=== PATIENT | male | born 1965 | race Caucasian/White ===

== ENCOUNTER 2018-05-02 16:14 | Emergency (ER) | payer OTHER, MEDICAID, SELFPAY ==
[2018-05-02 16:15] VITALS: BP 167/94; PULSE 69; RESP 24; TEMP 36.3; O2SAT 97; BMI 57.1
--- NOTE | 2018-05-02 16:20 | ED.RN ---
spoke with Dorina Serra no testing required. follow up with [facility]
--- NOTE | 2018-05-02 16:24 | RAD_ITS ---
STUDY: X-RAY - RIGHT SHOULDER REASON FOR EXAM: Male, 52 years old. Fall, pain. TECHNIQUE: 4 view(s) of the shoulder. COMPARISON: None. FINDINGS: Normal glenohumeral articulation. There is degenerative arthrosis of the acromioclavicular joint without inferior osseous spur formation. There is a 2 mm periarticular ossific density along the superior joint margin. There is a flat undersurface of the acromion consistent with a Type I morphology. A nearly 2 cm mildly irregular, but benign-appearing sclerotic density is seen in the proximal humeral diaphysis. The soft tissue structures are unremarkable. There is no demonstrated fracture. Normal visualized pulmonary apex. RAD/Shoulder min 2 Views IMPRESSION: 1. No acute fracture of the right shoulder. 2. 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 3. 2 cm irregular sclerotic density in the proximal humeral diaphysis, likely benign. If there is clinical suspicion of other pathology, one might consider bone scan to exclude the presence of other skeletal lesions. Electronically Signed: Nikita Coley MD at 16:48 EDT , Service support ,
--- NOTE | 2018-05-02 16:28 | ED.DCSUM_ITS ---
- ER Visit Summary Date of Service: 05/02/18 Chief Complaint: Right shoulder pain History of Present Illness: The patient is a 52 M that rolled his ankle and fell today. He landed on his right shoulder. He only complains of right shoulder pain. Pain worse with movement. No weakness or numbness. No other injuries. No loss of consciousness. Physical Examination: Proximal humerus tender to palpation. Neurovascular intact distally. No deformities. Skin intact. Clavicle nontender. Neck nontender. Head atraumatic. No other pertinent findings. Test Results: Shoulder x-rays pending Emergency Department Course and Treatment: Patient declined pain medicine. He already took ibuprofen. X-ray showed no fracture or acute abnormality. He does have a 2 cm sclerotic lesion in his humeral head. He can follow up with primary care as needed for this. He will follow-up with corporate care for his injury. He may return to work today. No lifting with the right arm until cleared by [facility] care. Treatment Plan: As above Disposition: Discharged Impression: 1. Right shoulder contusion 2. Right humerus sclerotic lesion This note was generated with [employer] dictation software. It may contain incorrect words, spelling, and punctuation that were not noted in review of the chart prior to signing ED Disposition - Plan for ED Patient: Chief Complaint: Fall Referrals: Eduard Wells MD [Primary Care Provider] -
--- NOTE | 2018-05-02 16:58 | DCINST.ED_ITS ---
ED Disposition - Plan for ED Patient: Chief Complaint: Fall Instructions: ED Mechanical Fall Referrals: Eduard Wells MD [Primary Care Provider] - [facility] [GROUP OF PHYSICIANS] -
== END 2018-05-02 17:13 | disposition home or self-care (01) ==
PROVIDERS: Emergency Provider Emergency Medicine; Family Provider Family Medicine; PCP Family Medicine
DX: S40.011A Contusion of right shoulder, initial encounter (principal); W18.39XA Other fall on same level, initial encounter; Y93.9 Activity, unspecified; Y92.9 Unspecified place or not applicable; Y99.0 Civilian activity done for income or pay; M25.811 Other specified joint disorders, right shoulder; I10 Essential (primary) hypertension; K21.9 Gastro-esophageal reflux disease without esophagitis; Z79.82 Long term (current) use of aspirin; Z79.899 Other long term (current) drug therapy
CPT/HCPCS: 73030; 99282

== ENCOUNTER 2019-01-29 22:06 | Emergency (ER) | payer SELFPAY ==
[2019-01-29 22:07] VITALS: BP 190/102; RESP 16; TEMP 36.7; BMI 50.5
[2019-01-29 22:53] VITALS: BP 170/67; PULSE 89; RESP 16; O2SAT 96
--- NOTE | 2019-01-29 23:14 | ED.VISSUMM ---
- ER Visit Summary Date of Service: 01/29/19 Chief Complaint: Hypertension History of Present Illness: The patient is a 53 M history of hypertension, anxiety, and depression. Patient has been out of his blood pressure medication for the past 1 month. If the pharmacy was going to call his doctor for a refill the patient arrives today has not taken it in the last month. He has had cold-like symptoms over the past few days. He does report congestion and cough. Last evening he had right ear pain. He took Coricidin HBP today for his cold symptoms. He got new batteries for his blood pressure cuff at home and noted his blood pressure to be high. He states when his blood pressure is under good control systolic blood pressure is in the 140s. It is recently been running in the 150s-170s. Physical Examination: Blood pressure is 170/67, temperature 98.1, heart rate 89, respiratory rate 16, pulse ox 96% on room air. When I enter the room patient systolic blood pressure is 188. Patient is sitting upright in the bed. He is in no acute distress and nontoxic appearing. Head neck examination reveals right TM to be erythematous. Left TM is clear. Heart is regular rate and rhythm. Lung sounds are clear. Abdomen is soft and nontender. Neuro exam is grossly unremarkable. Test Results: [] Emergency Department Course and Treatment: Patient be treated with a course of Augmentin to cover his ear infection. This will also cover respiratory illness so chest x-ray will be deferred at this time. Patient is given a dose of his Tenoretic. He will be given prescription for 10-day course. He will follow-up with his primary care physician to get his medication refilled. Treatment Plan: [] Disposition: Discharge Impression: 1. Right otitis media 2. Hypertension secondary to medication noncompliance This note was generated with Fl[employer]ation software. It may contain incorrect words, spelling, and punctuation that were not noted in review of the chart prior to signing ED Disposition - Plan for ED Patient: Referrals: Eduard Wells MD [Primary Care Provider] -
--- NOTE | 2019-01-29 23:17 | ED.DCSUM_ITS ---
- ER Visit Summary Date of Service: 01/29/19 Chief Complaint: Hypertension History of Present Illness: The patient is a 53 M history of hypertension, anxiety, and depression. Patient has been out of his blood pressure medication for the past 1 month. If the pharmacy was going to call his doctor for a refill the patient arrives today has not taken it in the last month. He has had cold- like symptoms over the past few days. He does report congestion and cough. Last evening he had right ear pain. He took Coricidin HBP today for his cold symptoms. He got new batteries for his blood pressure cuff at home and noted his blood pressure to be high. He states when his blood pressure is under good control systolic blood pressure is in the 140s. It is recently been running in the 150s-170s. Physical Examination: Blood pressure is 170/67, temperature 98.1, heart rate 89, respiratory rate 16, pulse ox 96% on room air. When I enter the room patient systolic blood pressure is 188. Patient is sitting upright in the bed. He is in no acute distress and nontoxic appearing. Head neck examination reveals right TM to be erythematous. Left TM is clear. Heart is regular rate and rhythm. Lung sounds are clear. Abdomen is soft and nontender. Neuro exam is grossly unremarkable. Test Results: [] Emergency Department Course and Treatment: Patient be treated with a course of Augmentin to cover his ear infection. This will also cover respiratory illness so chest x-ray will be deferred at this time. Patient is given a dose of his Tenoretic. He will be given prescription for 10-day course. He will follow-up with his primary care physician to get his medication refilled. Treatment Plan: [] Disposition: Discharge Impression: 1. Right otitis media 2. Hypertension secondary to medication noncompliance This note was generated with [employer] software. It may contain incorrect words, spelling, and punctuation that were not noted in review of the chart prior to signing ED Disposition - Plan for ED Patient: Referrals: Eduard Wells MD [Primary Care Provider] -
--- NOTE | 2019-01-29 23:17 | ED.DEP ---
ED Disposition - Plan for ED Patient: Disposition: Home or Assisted Living Instructions: ED HTN Established Prescriptions: Amox/Clavulanate Tablet [Augmentin Tablet] 875 mg PO Q12H #20 tablet Atenolol/Chlorthalidone [Tenoretic 100 Tablet] 1 tab PO DAILY #10 tablet Referrals: Eduard Wells MD [Primary Care Provider] - As soon as possible
[2019-01-29] MEDS: Chlorthalidone 50 MG Tablet 25 MG PO (23:28)
[2019-01-29] MEDS: Amox/Clavulanate 875 MG Tablet PO (23:28)
[2019-01-29] MEDS: Atenolol 100 MG Tablet PO (23:29)
[2019-01-29 23:37] VITALS: BP 188/84; PULSE 84; RESP 15; O2SAT 95
== END 2019-01-29 23:38 | disposition home or self-care (01) ==
PROVIDERS: Emergency Provider Emergency Medicine; Family Provider Family Medicine; PCP Family Medicine
DX: I10 Essential (primary) hypertension (principal); Z91.14 Patient's other noncompliance with medication regimen; H66.91 Otitis media, unspecified, right ear; F32.9 Major depressive disorder, single episode, unspecified; F41.9 Anxiety disorder, unspecified; Z79.82 Long term (current) use of aspirin; Z79.899 Other long term (current) drug therapy
CPT/HCPCS: 99283

== ENCOUNTER 2019-09-26 21:15 | Observation (INO) | payer SELFPAY ==
[2019-09-26 21:16] VITALS: BP 183/128; PULSE 103; RESP 18; TEMP 36.9; O2SAT 98; BMI 48.0
[2019-09-26 21:45] VITALS: BP 173/78; PULSE 99; RESP 20; O2SAT 95
--- NOTE | 2019-09-26 21:46 | EKG12_ITS ---
Test Reason : CP Blood Pressure : / mmHG Vent. Rate : 102 BPM Atrial Rate : 102 BPM P-R Int : 172 ms QRS Dur : 090 ms QT Int : 386 ms P-R-T Axes : 045 -08 049 degrees QTc Int : 503 ms Sinus tachycardia Possible Left atrial enlargement Borderline ECG Confirmed by MARTIN HUBER, BLANQUITA ([id number]), editor trade journal DAGO CRAMER ([id number]) on 09/29/2019 12:22:54 PM Referred By: Confirmed By:ASMITA SALAZAR MD
--- NOTE | 2019-09-26 21:49 | RAD_ITS ---
STUDY: X-RAY CHEST REASON FOR EXAM: Male, 54 years old. Shortness of breath, chest tightness, high blood pressure. TECHNIQUE: Single AP portable view of the chest. COMPARISON: 09/18/2017. 06/09/2016. FINDINGS: There are superimposed monitor leads. The lungs are clear and expanded. There is no demonstrated pleural abnormality. There is mild cardiac enlargement. Normal mediastinum and maggie. Normal visualized pulmonary arteries. Normal visualized aortic arch and descending thoracic aorta. Normal visualized thoracic spine. Normal visualized ribs, clavicles, and shoulders. There is no demonstrated abnormality of the visualized soft tissue structures of the upper abdomen. RAD/Chest 1 View (Portable) IMPRESSION: Cardiomegaly, new since previous exam. No pulmonary edema, congestive heart failure or confluent pneumonia. Electronically Signed: Matilda Bob MD at 23:03 EST , Service support ,
[2019-09-26 21:54] VITALS: O2SAT 100
[2019-09-26 22:09] LABS: Absolute Lymphocyte Count 1.27 X10^3/uL (0.83-4.51); Absolute Neutrophil Count 2.1 X10^3/uL (2.0-7.7); Basophil# 0.05 X10^3/uL; Basophil% 1.2 % (0-1); Eosinophil# 0.18 X10^3/uL; Eosinophils% 4.3 % (0-5); Hematocrit 42.6 % (40-54); Hemoglobin 14.7 g/dL (13.0-16.5); Lymphocyte # 1.27 X10^3/ul (4.0); Lymphocyte % 30.5 % (19-41); Mean Corp Hgb Conc 34.5 g/dL (32-36); Mean Corpuscular Hgb 29.9 pg (27.0-32.0); Mean Corpuscular Volume 86.6 fL (80-94); Mean Platelet Vol. 9.4 fl (6.2-12.0); Monocyte# 0.52 X10^3/uL; Monocyte% 12.5 % (0-10); NRBC Flagged by Analyzer 0 % (0-5); Neutrophil # 2.13 X10^3/uL (2.7-7.7); Neutrophil % 51.3 % (47-70); Platelet Count 203 K/mm3 (150-450); RBC Distribution Width CV 12.4 % (11.6-14.6); RBC Distribution Width SD 39.3 fl (35.1-43.9); Red Blood Count 4.92 M/mm3 (4.6-6.2); White Blood Count 4.2 K/mm3 (4.4-11.0)
[2019-09-26 22:20] VITALS: PULSE 100; RESP 18
[2019-09-26 22:20] LABS: International Normalized Ratio 0.9; Prothrombin Time (Protime)PT. 12.2 SECONDS (11.7-14.9)
[2019-09-26 22:26] VITALS: BP 137/86; PULSE 90; RESP 18; O2SAT 95
[2019-09-26] MEDS: Ipratropium/Albuterol Sulfate 3 ML AMPUL.NEB INHALATION (22:27)
[2019-09-26 22:33] LABS: Anion Gap 5 (5-15); BUN 13 mg/dL (7-18); BUN/Creat Ratio 11.4 RATIO (10-20); Calcium,Total 9.1 mg/dL (8.5-10.1); Chloride 104 mmol/L (98-107); Creatinine, Serum 1.14 mg/dL (0.70-1.30); EST Glomerular Filtration Rate 71 mL/min (>60); Est Glom Filt Rate - Afr Amer 86 mL/min (>60); Estimated Creatinine Clearance 71.67 ml/min; Glucose 130 mg/dL (74-106); Potassium 3.1 mmol/L (3.5-5.1); Sodium Level 140 mmol/L (136-145)
[2019-09-26 23:43] VITALS: BP 144/83; PULSE 98; RESP 18; O2SAT 93; O2SAT 94
[2019-09-27] VITALS (12 sets, daily range): BP systolic 156–188; BP diastolic 80–98; PULSE 64–99; RESP 16–20; TEMP 36.6–36.8; O2SAT 94–97; BMI 53.4
--- NOTE | 2019-09-27 00:51 | ED.DCSUM_ITS ---
- ER Visit Summary Date of Service: 09/27/19 Chief Complaint: Shortness of breath History of Present Illness: The patient is a 54 M presenting with shortness of breath. Patient states that started approximately 1 week ago. He states it has been progressively worsening. It is worsened with the exerts himself. He has had a dry cough. He denies fever. Denies chest pain. Denies abdominal pain, nausea, vomiting, diarrhea. He does have multiple sick contacts at home. He did not receive a flu shot today. Today he had palpitations so he checked his pulse and it was over 100. He then checked his blood pressure went which was 190/102. This prompted him to come to the emergency department. Physical Examination: Vitals are stable. Patient is afebrile. Alert no acute distress. HEENT exam is unremarkable. Neck is supple. Lungs are diminished bilaterally. Heart is regular rate and rhythm. Abdomen is soft nontender nondistended. Extremities symmetric edema Skin is warm and dry. No focal neurologic deficit. Remainder of exam is unremarkable. Emergency Department Course and Treatment: EKG is sinus rate of 102 with no acute ischemic changes. Chest x-ray shows cardiomegaly, new since previous exam. No pulmonary edema, congestive heart failure or confluent pneumonia. CBC normal except white count 4.2. Chemistries normal except potassium 3.1. Troponin is negative. Patient was given a DuoNeb on arrival. He continues to f eel short of breath. With ambulation his pulse ox is 88 to 89% on room air. Discussed with the hospitalist for observation. Disposition: Observation Impression: Exertional dyspnea This note was generated with [employer] dictation software. It may contain incorrect words, spelling, and punctuation that were not noted in review of the chart prior to signing ED Disposition - Plan for ED Patient: Referrals: Eduard Wells MD [Primary Care Provider] -
--- NOTE | 2019-09-27 00:53 | PCM.HP.STD ---
Problem List (1) Exertional dyspnea Status: Acute (2) Hypokalemia Status: Acute (3) HTN (hypertension) Status: Chronic Qualifiers: Hypertension type: essential hypertension Qualified Code(s): I10 - Essential (primary) hypertension (4) Anxiety and depression Status: Chronic (5) Morbid obesity Status: Chronic History of Present Illness Date of Admission: 09/27/19 Chief Complaint: Exertional dyspnea The patient is a 54 y/o M w/ PMHx: Morbid Obesity, HTN, Anxiety and Depression who presents to the [facility] ED on 09/27/19 with history of ongoing dyspnea starting approximately 1 week prior progressively worsening, worse with any exertion with ongoing dry cough with multiple recent ill contacts and reported flu shot upon day prior to current presentation with mildly racing heart and elevated blood pressures above his normal baseline. He does note that he has had recent congestion and mild rhinorrhea and been breathing through his mouth more. He denies any recent fevers or chills associated. Patient oxygenation decreases to 88% on RA with exertion in the ED. Work-up in the ED included T 98.4, heart rate 103, BP 183/128, respiratory rate 18, 98% on room air with repeat blood pressure upon requested evaluation for admission 177/98, CBC with W BC 4.2, hemoglobin 14.7, platelet 203 with no evidence of left shift, unremarkable coags, BMP with potassium 3.1, glucose 130, troponin less than 0.015, chest x-ray with cardiomegaly new from prior with last noted film that would include portions of the chest 05/02/2018, EKG with sinus rhythm with no acute evidence of ischemia. In the ED patient ministered DuoNeb therapy and he notes this had minimal improvement effect. Past Medical History Past Medical History (Chronic Problems): Chronic Problems (Last Updated 05/09/18 @ 16:56 by Veronica Landa) HTN (hypertension) (Chronic) Anxiety and depression (Chronic) Morbid obesity (Chronic) Medical History: Medical History (Last Updated 05/09/18 @ 16:56 by Veronica Landa) Shoulder pain M25.519 HTN (hypertension) I10 Allergies No Known Allergies Allergy (Verified 09/26/19 21:15) Home Medications: Ambulatory Orders Medication Instructions Recorded Aspirin 325 mg PO DAILY@0800 11/19/13 Atenolol/Chlorthalidone [Tenoretic 1 tab PO DAILY 11/19/13 100 Tablet] Ibuprofen [Motrin] 800 mg PO BID 11/19/13 Potassium Chloride [Klor-Con M10] 10 meq PO DAILY 01/13/15 guanfacine 1 mg tablet 1 tab PO QHS 30 Days #30 05/09/18 Clonazepam [Klonopin] 0.5 mg PO QHS 01/29/19 Escitalopram Oxalate [Lexapro] 20 mg PO DAILY 01/29/19 Minoxidil 20 mg PO DAILY 09/26/19 Surgical History: - - Patient notes only ingrown toenail removal surgery. Psychiatric History: Anxiety, Depression Lives: Spouse/ Significant Other Smoking Status: Never smoker Tobacco Use: Non-smoker Alcohol: Occasional Drugs: None - *Family History Maternal History Items: - - Patient notes a maternal family history of asthma and diabetes mellitus type 2. Paternal History Items: - - Patient notes a paternal family history of diabetes as well as lung cancer with concurrent tobacco use history. Review of Systems Constitutional: Reports: Malaise, Weakness, Fatigue. Denies: Chills, Fever, Weight Change HEENT: Reports: Nasal Congestion, Sinus Congestion, Sinus Drainage. Denies: Head Aches Cardiovascular: Denies: Chest Pain, Chest Pressure, Chest Tightness, Light Headedness, Orthopnea, Palpitations, Syncope Respiratory: Reports: Cough, Shortness of Breath, Shortness of breath upon exertion. Denies: Shortness of breath at rest, Sputum production Gastrointestinal: Denies: Abdominal Pain, Nausea, Vomiting Genitourinary: Denies: Dysuria Musculoskeletal: Reports: Joint Pain. Denies: Joint Tenderness Skin: Denies: Rash, Wounds Neurological: Denies: Numbness, Tingling, Focal weakness Psychiatric: Reports: Anxiety, Depression. Denies: Homicidal Ideations, Suicidal Ideations Hematologic/ Lymphatic: Denies: Easy Bruising, Easy Bleeding VTE Information - Inpt Only VTE Present on Admission: No VTE Mechan Device Prophylaxis: SCD's VTE Pharm Prophylaxis ordered?: Yes Patient Problems: Active and Suspected Problems (Last Updated 05/09/18 @ 16:56 by Veronica Landa) Exertional dyspnea (Acute) Hypokalemia (Acute) Subjective: Seated upright in ED bed, seated at bedside, notes minimal improvement with DuoNeb therapy. Objective: Physical Examination: General: awake, alert, oriented x 3 and cooperative, seated upright at the ED bedside, no acute distress but sitting straight up. Skin: normal color, turgor, no icterus, cyanosis. HEENT: AT/NC, EOMI, PERRLA, mildly dry MM, no carotid bruits, unable to discern JVD given thickened neck. Lungs: Diffusely diminished breath sounds, greater bases, moderate effort, no rales, rhonchi or wheezing. Heart: Currently regular rate and rhythm; no gallop, rub audible. Abdomen: soft, morbidly obese, NTTP, ND, normal BS, unable to discern HSM secondary to morbidly obese habitus. Extremities: no cyanosis, clubbing, bilateral pedal and ankle edema, not pitting. Neurological: patient awake, alert, oriented x 3; cognitive function intact; pupils equally reactive to light and accomodation; cranial nerves II-XII grossly normal, moving all 4 extremities, no focal deficits, strength moderate global decrease given acute complaints. Psychiatric: affect appears fatigued, no acute evidence of depressive or anxiety feelings. - Physical Exam Vitals/I&O's: Vital Signs Temp Pulse Resp BP Pulse Ox 98.4 F 99 19 H 177/98 H 95 09/26/19 21:16 09/27/19 00:00 09/27/19 00:00 09/27/19 00:00 09/27/19 00:00 Oxygen Delivery Method Room Air Weight: 316 lb Body Mass Index (BMI) 48.0 Laboratory Results 09/26/19 22:00: WBC 4.2 L, RBC 4.92, Hgb 14.7, Hct 42.6, MCV 86.6, MCH 29.9, MCHC 34.5, RDW Std Deviation 39.3, RDW Coeff of Bre 12.4, Plt Count 203, MPV 9.4, Immature Gran % (Auto) 0.200, Neut % (Auto) 51.3, Lymph % (Auto) 30.5, Ida % (Auto) 12.5 H, Eos % (Auto) 4.3, Baso % (Auto) 1.2 H, Absolute Neuts (auto) 2.1, Absolute Lymphs (auto) 1.27, Nucleated RBC % 0 09/26/19 22:00: PT 12.2, INR 0.9 09/26/19 22:00: Sodium 140, Potassium 3.1 L, Chloride 104, Carbon Dioxide 31.0, Anion Gap 5, BUN 13, Creatinine 1.14, Estim Creat Clear Calc 71.67, Est GFR (MDRD) Af Amer 86, Est GFR (MDRD) Non-Af 71, BUN/Creatinine Ratio 11.4, Glucose 130 H, Calcium 9.1, Troponin I < 0.015 Assessment/Plan All Active Problems (Last Updated 05/09/18 @ 16:56 by Veronica Landa) Exertional dyspnea (Acute) Hypokalemia (Acute) Disorder of bone, unspecified (Acute) Contusion of right shoulder, initial encounter (Acute) The patient is a 54 y/o M w/ PMHx: Morbid Obesity, HTN, Anxiety and Depression who presents to the [facility] ED on 09/27/19 with history of ongoing dyspnea starting approximately 1 week prior progressively worsening, worse with any exertion with ongoing dry cough with multiple recent ill contacts and reported flu shot upon day prior to current presentation with mildly racing heart and elevated blood pressures above his normal baseline. 1. Exertional dyspnea, unclear specific etiology: Work-up in the ED included T 98.4, heart rate 103, BP 183/128, respiratory rate 18, 98% on room air with repeat blood pressure upon requested evaluation for admission 177/98, CBC with W BC 4.2, hemoglobin 14.7, platelet 203 with no evidence of left shift, unremarkable coags, BMP with potassium 3.1, glucose 130, troponin less than 0.015, chest x-ray with cardiomegaly new from prior with last noted film that would include portions of the chest 05/02/2018, EKG with sinus rhythm with no acute evidence of ischemia. Will admit to PCU, will obtain BMP, will obtain echocardiogram, place on a monitored bed to assure no acute myocardial infarction with serial cardiac enzymes and EKGs. If EKGs and cardiac enzymes remain unremarkable would pursue a.m. cardiac stress testing given may be anginal equivalent. Will administer Lasix 40 mg IV x1 and continue to assess for any improvement. ASA, NG, morphine. Mag, TSH pending. We will hold minoxidil as black box warning for cardiac side effects including pericardial effusion. 2. Hypokalemia: Admission K+ 3.1, supplementation given, repeat level in AM. 3. Hypertension, Uncontrolled: Continue home regimen including atenolol, chlorthalidone, given elevated BP above goal will add lisinopril, PRN hydralazine. 4. Anxiety and depression: We will continue home Klonopin and Lexapro regimen. 5. Morbid Obesity: Weight loss and lifestyle changes encouraged, nutrition consulted. 6. DVT prophylaxis: SCDs, Lovenox. Code Visit OBSV E&M: [id number] Initial observation care L3
--- NOTE | 2019-09-27 01:40 | ECHOCS_ITS ---
Reason For Study: DYSPNEA Procedure This was a 2D Doppler, Color Flow transthoracic echocardiogram. The exam was of poor technical quality due to body habitus. Exam performed in department. Left Ventricle Moderate concentric left ventricular hypertrophy. The estimated ejection fraction is 65 %. Stage 1 diastolic dysfunction. No regional wall motion abnormalities noted. Right Ventricle Normal size and thickness. Normal systolic function. Atria Normal left atrium. Normal right atrium. Normal atrial septum. Mitral Valve The mitral valve is structurally normal. No prolapse or stenosis seen. Tricuspid Valve Normal tricuspid valve. Trivial tricuspid valve insufficiency. Unable to estimate RV systolic pressure due to insufficient tricuspid regurgitant envelope. Aortic Valve Normal aortic valve. Trisinus/trileaflet aortic valve. Pulmonic Valve Normal pulmonic valve. Great Vessels Normal aortic root. Normal arch. Normal inferior vena cava. Inferior vena cava collapse with sniff. Pericardium/Pleural Trivial pericardial effusion. There are no echocardiographic indications of cardiac tamponade. Medication Diluted definity 3.5ml given slow IV push to enhance endocardial definition. MMode/2D Measurements & Calculations LVIDd: 4.7 cm IVSd: 1.6 cm Ao root diam: 3.7 cm LVIDs: 3.0 cm LVPWd: 1.5 cm FS: 35.6 % LA dimension(2D): 5.3 cm Time Measurements MV dec time: 0.22 sec Doppler Measurements & Calculations MV E max maximus: 54.2 cm/sec Lat Peak E' Maximus: 6.1 cm/sec Med Peak E' Maximus: 5.7 cm/sec MV A max maximus: 80.5 cm/sec E/E' lat: 8.9 E/E' med: 9.4 MV E/A: 0.67 Ao V2 max: 158.1 cm/sec LV V1 max: 126.6 cm/sec PA V2 max: 170.3 cm/sec Ao max P.0 mmHg LV V1 max P.4 mmHg Interpretation Summary Moderate concentric left ventricular hypertrophy. The estimated ejection fraction is 65 %. Stage 1 diastolic dysfunction. Trivial tricuspid valve insufficiency. Unable to estimate RV systolic pressure due to insufficient tricuspid regurgitant envelope. Trivial pericardial effusion. There are no echocardiographic indications of cardiac tamponade. There is no comparison study available. The study was technically difficult. Contrast injection was performed. Ordering Physician: Estelle Roldan Referring Physician: PIERCE RODRIGUES Performed By: Glenis Michael, BEKA, RVT
--- NOTE | 2019-09-27 01:40 | EKG12_ITS ---
Test Reason : CP ADMIT Blood Pressure : / mmHG Vent. Rate : 088 BPM Atrial Rate : 088 BPM P-R Int : 180 ms QRS Dur : 094 ms QT Int : 402 ms P-R-T Axes : 039 014 031 degrees QTc Int : 486 ms Normal sinus rhythm Prolonged QT Abnormal ECG When compared with ECG of 26-SEP-2019 21:18, MANUAL COMPARISON REQUIRED, DATA IS UNCONFIRMED Confirmed by BART HUBER, KASANDRA ([id number]), content editor DAGO CRAMER ([id number]) on 10/02/2019 10:05:47 AM Referred By: DR VAZ Confirmed By:KASANDRA ARRIAGA MD
[2019-09-27 02:14] LABS: Magnesium 2.3 mg/dL (1.6-2.6)
[2019-09-27] MEDS: Lisinopril 10 MG Tablet PO (02:23)
[2019-09-27] MEDS: 0.9% Saline Lock 10 ML Syringe IV (02:23)
[2019-09-27] MEDS: Furosemide 40 MG/4 ML Vial IV (02:23)
[2019-09-27] MEDS: Aspirin E.C. 81 MG Tablet PO (04:22)
[2019-09-27 05:02] LABS: Absolute Lymphocyte Count 1.28 X10^3/uL (0.83-4.51); Absolute Neutrophil Count 2.4 X10^3/uL (2.0-7.7); Basophil# 0.05 X10^3/uL; Basophil% 1.1 % (0-1); Eosinophil# 0.11 X10^3/uL; Eosinophils% 2.5 % (0-5); Hemoglobin 15.6 g/dL (13.0-16.5); Lymphocyte # 1.28 X10^3/ul (4.0); Lymphocyte % 28.8 % (19-41); Mean Corp Hgb Conc 33.2 g/dL (32-36); Mean Corpuscular Hgb 28.9 pg (27.0-32.0); Mean Platelet Vol. 9.6 fl (6.2-12.0); Monocyte# 0.57 X10^3/uL; Monocyte% 12.8 % (0-10); NRBC Flagged by Analyzer 0 % (0-5); Neutrophil # 2.43 X10^3/uL (2.7-7.7); Neutrophil % 54.6 % (47-70); Platelet Count 229 K/mm3 (150-450); RBC Distribution Width CV 12.6 % (11.6-14.6); White Blood Count 4.5 K/mm3 (4.4-11.0)
[2019-09-27 05:29] LABS: Anion Gap 9 (5-15); BUN 14 mg/dL (7-18); BUN/Creat Ratio 11.7 RATIO (10-20); Calcium,Total 9.1 mg/dL (8.5-10.1); Chloride 101 mmol/L (98-107); Cholesterol 164 mg/dL (200); EST Glomerular Filtration Rate 67 mL/min (>60); Est Glom Filt Rate - Afr Amer 81 mL/min (>60); Estimated Creatinine Clearance 68.08 ml/min; Glucose 115 mg/dL (74-106); High Density Lipoprotein 58 mg/dL; Potassium 3.3 mmol/L (3.5-5.1); Sodium Level 141 mmol/L (136-145); T4 Free Direct 0.89 ng/dL (0.76-1.46); Triglycerides 56 mg/dL; Very Low Density Lipoprotein 11 mg/dL (5-40)
--- NOTE | 2019-09-27 07:39 | PCM.PN.BLA ---
STROKE Vital Signs/Narrative: Vital Signs Temp Pulse Resp BP Pulse Ox 09/27/19 07:00 89 09/27/19 05:25 98.1 F 91 18 156/96 H 97
--- NOTE | 2019-09-27 10:18 | STRESSREP_ITS ---
Stress Test Report Date: 09/27/2019 Procedure: Pharmacologic stress nuclear imaging study Indications: Dyspnea on exertion Consent: Per the patient Procedure: The patient underwent pharmacologic (Regadenoson) evaluation with a peak heart rate of 100 beats per minute (60 %predicted maximal heart rate) and a peak blood pressure of 192/104 mmHg. The baseline ECG demonstrated normal sinus rhythm, poor R wave progression in the anterior leads, nonspecific ST-T changes. EKG during lexiscan infusion revealed no significant ischemic changes. EKG post infusion revealed no significant EKG changes suggestive of ischemia. [There were no significant cardiac dysrhythmias pretest, during pharmacologic infusion, or recovery]. [There was no complaint of chest discomfort during pharmacologic infusion or recovery]. The examination was discontinued secondary to completion of protocol. Impression: 1. Lexiscan stress test test is[negative] for Lexiscan infusion induced EKG changes of ischemia. 2. Lexiscan stress test test[is negative] for Lexiscan infusion induced chest pain. 3. Results of the nuclear portion of the test is as below Myocardial perfusion imaging study: Technique: The patient was injected with [14.5] millicuries of technetium 99m Cardiolite and subsequently rest SPECT Cardiolite nuclear imaging was obtained in the horizontal long, vertical long, and short axis views. The patient underwent pharmacologic (Regadenoson) evaluation. Please see above for details. The patient was injected with [45] millicuries of technetium 99m Cardiolite and subsequently stress SPECT Cardiolite nuclear imaging was obtained in the horizontal long, vertical long, and short axis views. A gated Cardiolite study at peak stress was obtained. Interpretation: Rest and stress SPECT Cardiolite nuclear imaging status post realignment, normalization, and attenuation correction demonstrate [no significant fixed or reversible defect suggestive of significant ischemia or infarction]. Gated images reveal no significant regional wall motion abnormalities]. The reported LVEF is [67]%. Impression: 1. There is [no evidence of significant ischemia or infarction]. 2. Estimated ejection fraction is [67%]. This note was generated with [employer] software. It may contain incorrect words, spelling, and punctuation that were not noted in checking the note before signing.
[2019-09-27] MEDS: Chlorthalidone 50 MG Tablet 25 MG PO (10:23)
[2019-09-27] MEDS: Atenolol 50 MG Tablet 100 MG PO (10:24)
[2019-09-27] MEDS: Escitalopram Oxalate 20 MG Tablet PO (10:25)
--- NOTE | 2019-09-27 10:53 | DS.PCM_ITS ---
Discharge Date and Diagnosis - Problem List Patient Problems: Active and Suspected Problems (Last Updated 05/09/18 @ 16:56 by Veronica Landa) Exertional dyspnea (Acute) Hypokalemia (Acute) Date of Admission: 09/27/19 Date of Discharge: 09/27/19 - Primary Discharge Diagnosis Active and Suspected Problems (Last Updated 05/09/18 @ 16:56 by Veronica Landa) Exertional dyspnea (Acute) Hypokalemia (Acute) - Secondary Discharge Diagnosis Chronic Problems (Last Updated 05/09/18 @ 16:56 by Veronica Landa) HTN (hypertension) (Chronic) Anxiety and depression (Chronic) Morbid obesity (Chronic) Hospital Course and Treatment Imaging Results: Clinical Impression(s) from Imaging Studies Chest X-Ray 09/26/19 21:49 IMPRESSION: Cardiomegaly, new since previous exam. No pulmonary edema, congestive heart failure or confluent pneumonia. Electronically Signed: Matilda Bob MD at 23:03 EST , Service support , Summary of Care Provided: The patient is a 54 year old M Berkley with exertional dyspnea Exertional dyspnea patient was placed on a monitored bed [place] was ruled out with serial cardiac enzymes subsequently underwent a nuclear stress test which was negative for stress-induced ischemia Acute parainfluenza virus possibly accounting for above Cardiomegaly this was found on chest x-ray echo obtained demonstrated moderate concentric left ventricular hypertrophy with an estimated ejection fraction of 65% in stage I diastolic dysfunction Hypokalemia corrected per protocol Morbid obesity with BMI of 51.2 weight loss advised Hypokalemia corrected per protocol Patient Problems: Active and Suspected Problems (Last Updated 05/09/18 @ 16:56 by Veronica Landa) Exertional dyspnea (Acute) Hypokalemia (Acute) - Physical Exam Vitals/I&O's: Vital Signs Temp Pulse Resp BP Pulse Ox 97.8 F 86 16 157/98 H 96 09/27/19 10:31 09/27/19 10:31 09/27/19 10:31 09/27/19 10:31 09/27/19 10:31 Oxygen Delivery Method Room Air Weight: 153.2 kg Body Mass Index (BMI) 53.4 Intake and Output for Last 24 Hours 09/25/19 09/26/19 09/27/19 23:59 23:59 23:59 Intake Total 50 / 50 Output Total 1700 / 1700 Balance -1650 / -1650 General: Alert HEENT: Atraumatic Neck: Supple Lungs: Diminished Psych/Mental Status: Normal Affect Laboratory Results 09/26/19 22:00: WBC 4.2 L, RBC 4.92, Hgb 14.7, Hct 42.6, MCV 86.6, MCH 29.9, MCHC 34.5, RDW Std Deviation 39.3, RDW Coeff of Bre 12.4, Plt Count 203, MPV 9.4, Immature Gran % (Auto) 0.200, Neut % (Auto) 51.3, Lymph % (Auto) 30.5, [place] % (Auto) 12.5 H, Eos % (Auto) 4.3, Baso % (Auto) 1.2 H, Absolute Neuts (auto) 2.1, Absolute Lymphs (auto) 1.27, Nucleated RBC % 0 09/26/19 22:00: PT 12.2, INR 0.9 09/26/19 22:00: Sodium 140, Potassium 3.1 L, Chloride 104, Carbon Dioxide 31.0, Anion Gap 5, BUN 13, Creatinine 1.14, Estim Creat Clear Calc 71.67, Est GFR (MDRD) Af Amer 86, Est GFR (MDRD) Non-Af 71, BUN/Creatinine Ratio 11.4, Glucose 130 H, Calcium 9.1, Troponin I < 0.015 09/26/19 22:00: Magnesium 2.3, TSH 4.40 H 09/26/19 22:00: B-Natriuretic Peptide 72.0 09/27/19 02:00: Troponin I < 0.015 09/27/19 04:44: WBC 4.5, RBC 5.40, Hgb 15.6, Hct 47.0, MCV 87.0, MCH 28.9, MCHC 33.2, RDW Std Deviation 40.0, RDW Coeff of Bre 12.6, Plt Count 229, MPV 9.6, Immature Gran % (Auto) 0.200, Neut % (Auto) 54.6, Lymph % (Auto) 28.8, [place] % (Auto) 12.8 H, Eos % (Auto) 2.5, Baso % (Auto) 1.1 H, Absolute Neuts (auto) 2.4, Absolute Lymphs (auto) 1.28, Nucleated RBC % 0 09/27/19 04:44: Sodium 141, Potassium 3.3 L, Chloride 101, Carbon Dioxide 31.0, Anion Gap 9, BUN 14, Creatinine 1.20, Estim Creat Clear Calc 68.08, Est GFR (MDRD) Af Amer 81, Est GFR (MDRD) Non-Af 67, BUN/Creatinine Ratio 11.7, Glucose 115 H, Calcium 9.1, Troponin I < 0.015, Triglycerides 56, Cholesterol 164, LDL Cholesterol 95, VLDL Cholesterol 11, HDL Cholesterol 58, Free T4 0.89 Current Medications Acetaminophen (Tylenol) 650 mg PO Q6H PRN PRN PRN Reason: Non-cardiac pain (-08/17) Al Hydroxide/Mg Hydroxide (Mylanta Ii) 15 - 30 ml PO Q4H PRN PRN PRN Reason: INDIGESTION Albuterol Sulfate (Ventolin Aerosols) 2.5 mg INHALATION Q2H PRN PRN PRN Reason: dyspnea, wheezing Aspirin (Ecotrin) 81 mg PO DAILY@0800 [facility] Last Admin: 09/27/19 04:22 Dose: 81 mg Documented by: Atenolol (Tenormin (Beta Stewart)) 100 mg PO DAILY [facility] Last Admin: 09/27/19 10:24 Dose: 100 mg Documented by: Chlorthalidone (Hygroton) 25 mg PO DAILY [facility] Last Admin: 09/27/19 10:23 Dose: 25 mg Documented by: Clonazepam (Klonopin) 0.5 mg PO QHS [facility] Dextrose (D50w Syringe) 0 gm IV X1 PRN; Protocol PRN Reason: Hypoglycemia Enoxaparin Sodium (Lovenox) 40 mg SC BID [facility] Last Admin: 09/27/19 07:45 Dose: Not Given Documented by: Escitalopram Oxalate (Lexapro) 20 mg PO DAILY [facility] Last Admin: 09/27/19 10:25 Dose: 20 mg Documented by: Glucagon () 1 mg IM .X1 PRN PRN Reason: Hypoglycemia Guaifenesin (Robitussin) 20 ml PO Q4H PRN PRN PRN Reason: COUGH Hydralazine HCl (Apresoline Iv) 10 mg IV Q4H PRN PRN PRN Reason: SBP > 160 Lisinopril (Zestril) 10 mg PO DAILY [facility] Last Admin: 09/27/19 02:23 Dose: 10 mg Documented by: Magnesium Hydroxide (Milk Of Magnesia) 30 ml PO DAILY PRN PRN Reason: Constipation Melatonin (Melatonin) 3 mg PO QHS PRN PRN PRN Reason: INSOMNIA Morphine Sulfate () 1 - 2 mg IV Q4H PRN PRN PRN Reason: Pain Score 1-10/10 Nitroglycerin (Nitrostat) 0.4 mg SUBLINGUAL Q5M PRN PRN Reason: CARDIAC/CHEST PAIN Non-Formulary Medication (Guanfacine) 1 tab PO QHS [facility] Ondansetron HCl (Zofran) 4 mg IV Q8H PRN PRN PRN Reason: NAUSEA/VOMITING Potassium Chloride (K-Dur) 20 meq PO BIDCM [facility] Last Admin: 09/27/19 10:23 Dose: 20 meq Documented by: Sodium Chloride () 10 - 40 ml IV UD PRN PRN Reason: SALINE FLUSH Last Admin: 09/27/19 02:23 Dose: 10 ml Documented by: Throat Lozenges (Cepacol Sore Throat Lozenge) 1 lozenge MUCOUS MEM Q2H PRN PRN PRN Reason: Sore Throat/Cough Discharge Diet: Low fat/ Low Cholesterol Discharge Activity: Return to Normal Activity Home Medications: Medications to take at Discharge Aspirin 325 mg PO DAILY@0800 11/19/13 Atenolol/Chlorthalidone [Tenoretic 100 (beta stewart)] 1 tab PO DAILY 11/19/13 Potassium Chloride [Klor-Con M10] 10 meq PO DAILY 01/13/15 guanfacine 1 mg tablet 1 tab PO DAILY 30 Days #30 05/09/18 Clonazepam [Klonopin] 0.5 mg PO QHS 01/29/19 Escitalopram Oxalate [Lexapro] 20 mg PO DAILY 01/29/19 Minoxidil 20 mg PO DAILY 09/26/19 Primary Care Physician: Eduard Wells MD [Primary Care Provider] - Please follow up with your Primary Care Physician in: in 5-7 days Disposition: Home Minutes spent on discharge:: 35 Patient Condition:: Stable Medical Necessity - Tobacco Use Smoking Status: Never smoker Tobacco Use: Non-smoker Meaningful Use Info Meaningful Use Diagnoses (Choose all that apply): None applicable Code Visit OBSV E&M: 98834 Observation care discharge
--- NOTE | 2019-09-27 10:53 | DCINST_ITS ---
- Discharge Diagnoses Current Active Problems: Current Active and Chronic Problems (Last Updated 05/09/18 @ 16:56 by Veroniac Landa) Exertional dyspnea (Acute) HTN (hypertension) (Chronic) Anxiety and depression (Chronic) Hypokalemia (Acute) Morbid obesity (Chronic) You will use the following diet at home:: No restrictions Your food should be the consistency of: Regular Allergies/Adverse Reactions: Allergies No Known Allergies Allergy (Verified 09/26/19 21:15) Medications to take at Discharge Aspirin 325 mg PO DAILY@0800 11/19/13 Atenolol/Chlorthalidone [Tenoretic 100 (beta parth)] 1 tab PO DAILY 11/19/13 Potassium Chloride [Klor-Con M10] 10 meq PO DAILY 01/13/15 guanfacine 1 mg tablet 1 tab PO DAILY 30 Days #30 05/09/18 Clonazepam [Klonopin] 0.5 mg PO QHS 01/29/19 Escitalopram Oxalate [Lexapro] 20 mg PO DAILY 01/29/19 Minoxidil 20 mg PO DAILY 09/26/19 Primary Care Physician: Eduard Wells MD [Primary Care Provider] - Please follow up with your Primary Care Physician in: in 5-7 days Test Results: Test results from this visit will be discussed in further detail at your follow- up appointment, if applicable. Proposed Discharge Date: 09/27/19
--- NOTE | 2019-09-27 13:12 | CASEMGMT ---
AMPARO met with patient as he is listed as self pay. His employer offers insurance, but it is too expensive. He said he sees Dr Wells at [facility]. He utilizes there financial assistance program. He does okay getting his medications as long as he doesn't have to get them all at once. Individually they are inexpensive. He is concerned about this hospital bill. AMPARO told him he can talk with someone from [employer] to work out a payment plan. He denied need for any resources. He said he usually makes too much money to qualify for any assistance. He thanked AMPARO for stopping by. Melodie ROBISON MSW
== END 2019-09-27 16:35 | disposition home or self-care (01) ==
LOC: ED 22:42 → PCU 09-27 01:34
PROVIDERS: Admitting Provider Family Medicine; Emergency Provider Emergency Medicine; Family Provider Family Medicine; PCP Family Medicine; Visit Provider Internal Medicine
DX: R06.09 Other forms of dyspnea (principal); E87.6 Hypokalemia; I10 Essential (primary) hypertension; Z23 Encounter for immunization; E66.01 Morbid (severe) obesity due to excess calories; B34.8 Other viral infections of unspecified site; F41.9 Anxiety disorder, unspecified; F32.9 Major depressive disorder, single episode, unspecified; Z79.899 Other long term (current) drug therapy; Z79.82 Long term (current) use of aspirin; Z68.43 Body mass index [BMI] 50.0-59.9, adult; Z71.3 Dietary counseling and surveillance
CPT/HCPCS: 36415; 71045; 78452; 80048; 80061; 83735; 83880; 84439; 84443; 84484; 85025; 85610; 87633; 93005; 93017; 93306; 94640; 96374; 97802; 99218; 99251; 99285; A9500; Q9957; 90686; A4216; C8929; G0378; G0463; J1940; J2785

== ENCOUNTER 2019-11-30 20:05 | Emergency (ER) | payer SELFPAY ==
[2019-09-27 01:49] VITALS: BMI 53.4
[2019-11-30 20:06] VITALS: BP 162/92; PULSE 71; RESP 16; TEMP 36.8; O2SAT 97; BMI 54.6
--- NOTE | 2019-11-30 20:40 | RAD_ITS ---
HISTORY: LOWER BACK PAIN AFTER FALL COMPARISON: None FINDINGS: # of images incl. paperwork: 3 XR Spine Lumbar 3 views Vertebral body height is preserved. L5 is anteriorly subluxed on S1 by a few millimeters. Degenerative disc disease is present at multiple levels. This disc disease is manifested by loss of disc height, endplate sclerosis, and at the L2-L3 through L5-S1 levels, disc gas phenomenon. There is ossification of the posterior longitudinal ligament throughout the lumbar spine, but not continuously. Some anterior enthesophytes are present. SI joint arthritis. Facet joint arthritis. Sclerosis of the pubic symphysis is mild. Some hip arthritis is present. RAD/Lumbar Spine 2 or 3 Views IMPRESSION: Multilevel degenerative disc disease. Multilevel facet arthropathy. 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 No acute fracture perceived at 2100 Reported and signed by: Hi Ashley MD Electronically Signed: Hi Ashley MD at 20:59 EST Tel , Service support ,
[2019-11-30] MEDS: traMADol 50 MG Tablet PO (20:59)
[2019-11-30] MEDS: Orphenadrine 60 MG/2 ML Ampul IM (20:59)
--- NOTE | 2019-11-30 21:06 | ED.VIS.BACK ---
History of Present Illness Chief Complaint: Back Informant: Patient Onset: Weeks - 1 Context: Sudden Onset - falling as he was getting out of his truck, caught himself, twisting about his low back and causing pain that has persisted Injury: Twisting, Fall Timing: Continuous Quality: Aching Location: Lumbar - bilat Current Severity: Moderate Maximum Severity: Severe Worsened by: improves with: Movement, Ambulation, Bending, Lifting Relieved by: Remaining Still, Medications - ibuprofen helping some Narrative: Patient without radiation into his legs, no numbness or tingling in his legs or his perineum, no bowel or bladder dysfunction. He denies any other injury from the fall. He presents because the pain has been persistent and still fairly significant. Denies any abdominal pain. No hematuria. - Past Medical History (1) Anxiety and depression Status: Chronic (2) HTN (hypertension) Status: Chronic (3) Morbid obesity Status: Chronic Past Medical History - Allergies and Home Meds Allergies/Adverse Reactions: Allergies No Known Allergies Allergy (Verified 11/30/19 20:09) Primary Care Physician: Eduard Wells MD [Primary Care Provider] - Surgical History: - - Patient notes only ingrown toenail removal surgery. Lives: Spouse/ Significant Other Smoking Status: Never smoker - Family History Maternal Family History: Reports: - - Patient notes a maternal family history of asthma and diabetes mellitus type 2. Paternal Family History: Reports: - - Patient notes a paternal family history of diabetes as well as lung cancer with concurrent tobacco use history. Review of Systems General: Denies: Chills, Fever, Sweats Eyes: Denies: Visual changes - bilaterally, Diplopia ENT: Denies: Rhinorrhea, Sore throat Cardiovascular: Denies: Chest pain, Palpitations Respiratory: Denies: Dyspnea, Cough, Dyspnea on exertion Gastrointestinal: Denies: Abdominal pain, Nausea, Vomiting, Diarrhea, Melena, Hematochezia Genitourinary: Denies: Dysuria, Hematuria, Frequency Musculoskeletal: Reports: Back pain. Denies: Neck pain, Swelling, Extremity Pain Skin: Denies: Rash, Wounds Neurological: Denies: Headache, Weakness, Numbness Physical Exam Vital Signs/Narrative: Vital Signs Temp Pulse Resp BP Pulse Ox 11/30/19 20:06 98.3 F 71 16 162/92 H 97 Inital Vital Signs reviewed: Yes General: Well nourished, Well developed, Obese, - - Well-appearing, NAD Abdomen: Soft, Nontender, Nondistended, Normal bowel sounds Back: Normal Inspection, Spinal tenderness - Very mild upper lumbar only. No step-off. No signs of trauma or rash. [place] General, Paraspinal Tenderness - Throughout lumbosacral area bilaterally, Negative SLR - Right - While sitting, Negative SLR - Left - While sitting Extremeties: Nontender, No edema Skin: Normal color, No rash, No Trauma Neuro: Alert, Oriented, Normal Strength, Normal Sensation, Normal Gait, Normal Reflexes Reflexes: Negative for: Right Clonus, Left Clonus Psychological: Normal affect, Normal Mood Diagnostic/Tx/Re-eval Clinical Impression(s) from Imaging Studies Lumbar Spine X-Ray 11/30/19 20:40 IMPRESSION: Multilevel degenerative disc disease. Multilevel facet arthropathy. 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 No acute fracture perceived at 2100 Reported and signed by: Hi Ashley MD Electronically Signed: Hi Ashley MD at 20:59 EST Tel , Service support , - Medical Decision Making Patient states he is also having spasms and his back is locking up at times briefly. He was given an injection of Norflex and an oral Ultram. This did help. Very took ibuprofen earlier. We will give him a prescription for Flexeril and short prescription for Ultram and advised to follow-up if he still has significant pain after another week. ED Disposition - Plan for ED Patient: Disposition: Home or Assisted Living Diagnosis: Acute lumbosacral myofascial strain Instructions: Back Sprain/Strain Prescriptions: Orphenadrine [Norflex ER] 100 mg PO BID PRN #14 tab PRN Reason: Muscle Spasm Prescription Printed traMADol [Ultram] 50 mg PO Q4H PRN PRN 3 Days #16 tab PRN Reason: Pain Prescription Printed Referrals: Eduard Wells MD [Primary Care Provider] - 1 Week if not improving
[2019-11-30 21:35] VITALS: RESP 18
== END 2019-11-30 21:37 | disposition home or self-care (01) ==
PROVIDERS: Emergency Provider Emergency Medicine; PCP Family Medicine
DX: S39.012A Strain of muscle, fascia and tendon of lower back, initial encounter (principal); V58.4XXA Person boarding or alighting a pick-up truck or van injured in noncollision transport accident, initial encounter; Y93.89 Activity, other specified; Y92.812 Truck as the place of occurrence of the external cause; I10 Essential (primary) hypertension; F32.9 Major depressive disorder, single episode, unspecified; F41.9 Anxiety disorder, unspecified; E66.01 Morbid (severe) obesity due to excess calories; Z68.43 Body mass index [BMI] 50.0-59.9, adult
CPT/HCPCS: 72100; 96372; 99283

== ENCOUNTER 2020-03-12 16:45 | Emergency (ER) | payer SELFPAY ==
[2020-03-12 16:46] VITALS: BP 187/122; PULSE 74; RESP 16; TEMP 36.3; BMI 56.0
--- NOTE | 2020-03-12 17:02 | RAD_ITS ---
STUDY: X-RAY - RIGHT HAND REASON FOR EXAM: Male, 54 years old. Right hand pain after fall TECHNIQUE: 3 view(s) of the hand. COMPARISON: 12/26/16 FINDINGS: No acute fracture, dislocation or osseous destruction. Moderate arthrosis at the first mtp and carpal metacarpal joints. No significant soft tissue swelling. RAD/Hand Min 3 Views IMPRESSION: No acute fracture or dislocation. Moderate arthrosis as described above. Electronically Signed: Dveon Pardo, at 17:44 EDT Tel , Service support ,
--- NOTE | 2020-03-12 17:14 | RAD_ITS ---
STUDY: X-RAY CHEST REASON FOR EXAM: Male, 54 years old. Right rib pain after fall TECHNIQUE: 4 views of the chest and right RIBS COMPARISON: May 02, 2018. FINDINGS: Cardiac silhouette unremarkable. Pulmonary vascularity unremarkable. Aorta unremarkable. No focal airspace opacities. No pleural effusions. Upper abdomen unremarkable. Osseous structures demonstrate a stable sclerotic focus within the proximal right humerus. No pneumothorax. RAD/Ribs Uni Min 3V w/PA Chest IMPRESSION: No acute cardiopulmonary findings. No acute displaced rib fracture is identified. Electronically Signed: Devon Pardo, at 17:54 EDT Tel , Service support ,
--- NOTE | 2020-03-12 18:45 | ED.VIS.INJ ---
History of Present Illness Chief Complaint: Upper Extremity Injury Informant: Patient Onset: Yesterday Mechanism/Context: Fall, Trip Quality of Pain: Aching Associated Symptoms: Negative for: Parasthesias, Weakness, Loss of function, Inability to ambulate, Loss of consciousness, Amnesia Narrative: Patient is a 54-year-old male presenting for evaluation of right hand pain and swelling. Patient mechanical fall yesterday where his ankle rolled and he fell forward. He landed with his right hand up against his chest. He is not hit his head and denies any loss of consciousness. Since then he has had pain and swelling of his right lateral hand. He has some slight pain of his anterior right ribs as well from where his hand hit his chest. no difficulty breathing, shortness of breath or any other complaints at this time. He is not on any blood thinners. He has been taking ibuprofen at home for pain control. Patient is right-hand dominant. 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 Tetanus Immunization: Unknown Past Medical History - Allergies and Home Meds Allergies/Adverse Reactions: Allergies No Known Allergies Allergy (Verified 11/30/19 20:09) Primary Care Physician: Eduard Wells MD [Primary Care Provider] - Prior records reviewed: Yes Past Medical History: - - Hypertension, obesity Surgical History: noncontributory, - - Patient notes only ingrown toenail removal surgery. Smoking Status: Never smoker - Family History Maternal Family History: Reports: - - Patient notes a maternal family history of asthma and diabetes mellitus type 2. Paternal Family History: Reports: - - Patient notes a paternal family history of diabetes as well as lung cancer with concurrent tobacco use history. Review of Systems General: Denies: Chills, Fever, Sweats Eyes: Denies: Visual changes - bilaterally, Diplopia ENT: Denies: Rhinorrhea, Sore throat Cardiovascular: Reports: - - Right anterior lower chest wall pain. Denies: Chest pain, Palpitations Respiratory: Denies: Dyspnea, Cough, Dyspnea on exertion Gastrointestinal: Denies: Abdominal pain, Nausea, Vomiting, Diarrhea Musculoskeletal: Reports: Swelling - Right hand, Extremity Pain - Right lateral hand. Denies: Back pain Skin: Denies: Rash, Abrasions, Wounds Neurological: Denies: Headache, Weakness, Numbness Physical Exam Vital Signs/Narrative: Vital Signs Temp Pulse Resp BP 03/12/20 16:46 97.4 F L 74 16 187/122 H Inital Vital Signs reviewed: Yes General: Well nourished, Well developed Head: Normocephalic, Atraumatic Eyes: Perrl, EOMI ENT: No trauma. Negative for: Nasal trauma Neck: Nontender, Full ROM Cardiovascular: Regular rate, Regular rhythm, No murmurs Respiratory: No distress, CTA bilaterally, Chest nontender. Negative for: Retractions, Chest tenderness Abdomen: Soft, Nontender, Nondistended, Normal bowel sounds Back: Nontender Extremeties: Right wrist normal, no tenderness palpation or decreased range of motion. Right hand is diffusely swollen with tenderness over the fifth metacarpal to palpation but no obvious deformity. Flexion extension as well as intrinsic and extrinsic muscles of the hand are intact. Skin: Normal color, No rash Neurological: Alert, Oriented x3, Cranial nerves II-XII grossly intact, Normal Strength, Normal Sensation Psychological: Normal affect Diagnostic/Tx/Re-eval Clinical Impression(s) from Imaging Studies Hand X-Ray 03/12/20 17:02 IMPRESSION: No acute fracture or dislocation. Moderate arthrosis as described above. Electronically Signed: Devon Pardo, at 17:44 EDT Tel , Service support , Ribs w/Chest X-Ray 03/12/20 17:14 IMPRESSION: No acute cardiopulmonary findings. No acute displaced rib fracture is identified. Electronically Signed: Devon Pardo, at 17:54 EDT Tel , Service support , - Medical Decision Making Patient is evaluated for right hand pain and swelling after mechanical fall. He landed on the hand and his hand and hit his ribs. Rib series obtained which does not show any pneumothorax or rib fracture. Patient does not have any chest wall crepitus and just has mild tenderness palpation of the right lower anterior chest wall. Patient's hand is swollen but is neurovascularly intact. No fractures noticed on x-ray. Because the amount of swelling and tenderness palpation over the fifth metacarpal, patient is counseled he could have an occult fracture. He is instructed to follow-up with his PCP in 1 week for repeat imaging if he continues to have pain and swelling. He is given a wrist splint and counseled on rice therapy. He will continue take ibuprofen and alternate with Tylenol as needed for pain. He does not want a work note. Patient is counseled on signs and symptoms requiring return to the emergency room. Patient verbalizes agreement and understand this plan. Patient discharged home in stable and improved condition. ED Disposition - Plan for ED Patient: Disposition: Home or Assisted Living Diagnosis: Contusion of right hand, Contusion of right chest wall Instructions: ED HAND CONTUSION Referrals: Eduard Wells MD [Primary Care Provider] - Additional Instructions: There is no signs of an acute rib fracture, lung collapse or hand fracture. There is a chance that you have a very small break in the hand but did not show up on x-ray yet. If you are still having pain and swelling please follow-up with your primary care doctor in 1 week for repeat x-ray. Continue take ibuprofen and or Tylenol for pain control. Return the emergency room with any worsening symptoms. Wear the splint as needed for comfort. Ice and elevate the hand as much as you can.
[2020-03-12 19:33] VITALS: BP 190/102; PULSE 78; RESP 15; O2SAT 99
== END 2020-03-12 19:34 | disposition home or self-care (01) ==
PROVIDERS: Emergency Provider Emergency Medicine; PCP Family Medicine
DX: S60.221A Contusion of right hand, initial encounter (principal); S20.211A Contusion of right front wall of thorax, initial encounter; E66.9 Obesity, unspecified; I10 Essential (primary) hypertension; W19.XXXA Unspecified fall, initial encounter
CPT/HCPCS: 71101; 73130; 99283

== ENCOUNTER 2025-03-02 19:09 | Inpatient (IN) | payer OTHER, SELFPAY ==
[2025-03-02] VITALS (10 sets, daily range): BP systolic 114–173; BP diastolic 76–103; PULSE 76–93; RESP 15–22; TEMP 36.1–36.6; O2SAT 85–96; BMI 56.9; BMI 56.8
--- NOTE | 2025-03-02 20:29 | RAD_ITS ---
PROCEDURE: CHEST 1 VIEW (PORTABLE) 03/02/2025 REASON FOR EXAM: COUGH TECHNIQUE: Frontal view of the chest. FINDINGS: Hardware: None Heart: Heart size is moderately enlarged. Lungs: The lungs are clear. Bones: The bones are unremarkable. Other: RAD/Chest 1 View (Portable) IMPRESSION: No Acute Findings. Reading Location: [id number]
--- NOTE | 2025-03-02 20:30 | EDS_ITS ---
HPI History of Present Illness Chief Complaint: Shortness of Breath Narrative Narrative: 59-year-old male past medical history of hypertension presents with shortness of breath that has had for quite some time. He relates history that a month or longer ago he had relatives that had influenza A and 1 had influenza B. He went and saw his primary care provider and was told that he had influenza as well although he was never tested. He continued to have shortness of breath. He denies any weight gain or leg swelling. 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 He does not wear oxygen at home. He states that he was not improving so he had been prescribed amoxicillin and finished that a few weeks ago. He got rid of the cough a few weeks ago as well. Over the last week and a half he has had increasing shortness of breath and dyspnea on exertion. He denies any chest pain. He states he feels short of breath and wheezy. No history of congestive heart failure. [facility] Medical History Shoulder pain HTN (hypertension) Home Medications ?Medication ?Instructions ?Recorded ?Last Taken ?Type aspirin 325 mg tablet 325 mg PO DAILY@0800 HEART H EALTH 11/19/13 1 Day Ago History ~03/11/20 atenolol 100 mg-chlorthalidone 25 1 tab PO DAILY BLOOD PRESSURE 11/19/13 1 Day Ago History mg tablet ~03/11/20 potassium chloride 10 mEq 10 meq PO DAILY supplement 0 01/13/15 1 Day Ago History tablet,extended release(part/cryst) ~0 03/11/20 guanfacine 1 mg tablet 1 tab PO DAILY BLOOD PRESSUR E 30 05/09/18 1 Day Ago History days ##30 ~03/11/20 clonazepam 0.5 mg tablet 0.5 mg PO QHS anxiety 1 Day Ago History ~03/11/20 escitalopram oxalate 20 mg tablet 20 mg PO DAILY depre ssion 01/29/19 1 Day Ago History ~03/11/20 minoxidil 10 mg tablet 20 mg PO DAILY HAIR GROWTH 1 11/26/18 1 Day Ago History ~03/11/20 orphenadrine citrate 100 mg 100 mg PO BID PRN Muscle S pasm #14 11/30/19 1 Day Ago Rx tablet,extended release tabs ~03/11/20 Allergy/AdvReac Type Severity Reaction Status Date / Time No Known Allergies Allergy Verified 03/02/25 19:10 Social History Smoking Status: Never smoker alcohol intake: never ROS ROS ED ROS Narrative Constitutional: No fever, no chills. HEENT: No sore throat. No neck pain. Cardiovascular: No chest pain. No palpitations. No pedal edema. Respiratory: No cough, positive dyspnea on exertion and shortness of breath. Abdominal: No abdominal pain. No nausea. No vomiting. Musculoskeletal: No myalgias. No arthralgias. Neurologic: No headaches. No dizziness. No lightheadedness. Skin: No rash. Positive redness to abdomen. EXAM Physical Exam Narrative Exam Narrative: Afebrile. Vital signs noted. Nontoxic-appearing. Cardiovascular examination reveals a regular rate and rhythm. Decreased breath sounds bilateral bases. No overt wheezing or stridor. Abdomen is soft, nontender, and obese. There is mild redness diffusely throughout his abdomen. Neurological examination is nonfocal and lateralizing. Chronic lymphedema bilateral lower extremities. Const Vital Signs: 03/02/25 19:10 03/02/25 19:10 03/02/25 20:01 Temperature 97 F L Temperature Source Temporal Pulse Rate 87 Respiratory Rate 15 Respiratory Effort Normal Non-Labored Respiratory Pattern Blood Pressure 164/88 H Blood Pressure Mean 113 Pulse Ox 85 96 Oxygen Delivery Method Room Air Nasal Cannula Nasal Cannula Oxygen Flow Rate (L/min) 2 2 03/02/25 20:22 03/02/25 20:22 03/02/25 20:35 Temperature 97.8 F Temperature Source Oral Pulse Rate 77 Respiratory Rate 17 Respiratory Effort Respiratory Pattern Blood Pressure 114/76 Blood Pressure Mean 88 Pulse Ox 94 Oxygen Delivery Method Nasal Cannula Nasal Cannula Nasal Cannula Oxygen Flow Rate (L/min) 2 2 03/02/25 21:07 03/02/25 21:09 03/02/25 21:45 Temperature 97.8 F Temperature Source Oral Pulse Rate 82 90 93 Respiratory Rate 22 H 18 18 Respiratory Effort Respiratory Pattern Tachypnea Blood Pressure 121/79 H 130/88 H Blood Pressure Mean 93 102 Pulse Ox 95 94 Oxygen Delivery Method Nasal Cannula Nasal Cannula Oxygen Flow Rate (L/min) 2 2 MDM MDM MDM Narrative Medical decision making narrative: Differential diagnosis includes but not limited to COPD versus CHF versus pneumonia versus pulmonary embolism. Patient was hypoxic at 85% on room air. He may have obesity hypoventilation syndrome as well. He will be given a DuoNeb aerosolized treatment. EKG was obtained and interpreted by myself independently. It appears to be a fib at 85 bpm and certainly leads but there are waves consistent with atrial fibrillation the rhythm strip. He does not have a history of atrial fibrillation. Chest x-ray 1 view obtained and interpreted by myself independently and shows no pneumothorax or pneumonia. WBC count normal at 5.0 with hemoglobin stable at 11.6, hematocrit 34.6, platelet count 225. BMP is grossly unremarkable with a BUN of 18 and creatinine normal at 1.02. Of note, BNP was obtained with suspicion for CHF, and it is elevated at 1559. Given his hypoxia and negative chest x-ray, I obtained a CTA of the chest and while there is no pulmonary embolism patient does have cardiomegaly with a small pericardial effusion. Patient will be administered Lasix. I do feel that he may have new onset atrial fibrillation as well as CHF. I did review his prior outpatient record and he had an echocardiogram in 2019 which showed an ejection fraction of 65%. Patient will be discussed with the hospitalist for admission. Patient discussed with Dr. Rebollar for admission to the PCU. Patient is in stable condition. History & Record Review Discussion w/independent historian: Patient Additional record(s) reviewed:: Prior outpatient record and Prior ED visit Lab Data Attestation: I reviewed the patient's lab results. Labs: Laboratory Results - last 24 hr 03/02/25 19:53 WBC 5.0 RBC 3.95 L Hgb 11.6 L Hct 34.6 L MCV 87.6 MCH 29.4 MCHC 33.5 RDW Std Deviation 45.5 H RDW Coeff of Bre 14.3 Plt Count 225 MPV 10.5 Immature Gran % (Auto) 0.400 Neut % (Auto) 66.8 Lymph % (Auto) 21.8 [place] % (Auto) 8.2 Eos % (Auto) 2.2 Baso % (Auto) 0.6 Absolute Neuts (auto) 3.3 Absolute Lymphs (auto) 1.09 Nucleated RBC % 0 Sodium 140 Potassium 3.3 Chloride 103 Carbon Dioxide 25.3 Anion Gap 12 BUN 18 Creatinine 1.02 Estim Creat Clear Calc 116.54 Est GFR (MDRD) Non-Af 85 BUN/Creatinine Ratio 17.6 Glucose 163 H Calcium 9.2 NT pro BNP II 1559 H Radiography Diagnostic Testing: Clinical Impression(s) from Imaging Studies Chest X-Ray 03/02/25 20:29 IMPRESSION: No Acute Findings. Reading Location: [id number] Chest CTA 03/02/25 20:45 IMPRESSION: No CT evidence of pulmonary embolism. Cardiomegaly with a small pericardial effusion. Reading Location: [id number] Management Discussion w/another healthcare provider: Hospitalist Discharge Plan Dx/Rx/DC Orders Clinical Impression: Hypoxia, CHF (congestive heart failure), Obesity hypoventilation syndrome Disposition Disposition: Acute Care Hospital [facility]
[2025-03-02 20:35] LABS: Absolute Lymphocyte Count 1.09 X10^3/uL (0.83-4.51); Absolute Neutrophil Count 3.3 X10^3/uL (2.0-7.7); Basophil# 0.03 X10^3/uL; Basophil% 0.6 % (0-1); Eosinophil# 0.11 X10^3/uL; Eosinophils% 2.2 % (0-5); Hematocrit 34.6 % (40-54); Hemoglobin 11.6 g/dL (13.0-16.5); Lymphocyte # 1.09 X10^3/ul (0.83-4.51); Lymphocyte % 21.8 % (19-41); Mean Corp Hgb Conc 33.5 g/dL (32-36); Mean Corpuscular Hgb 29.4 pg (27.0-32.0); Mean Corpuscular Volume 87.6 fL (80-94); Mean Platelet Vol. 10.5 fl (6.2-12.0); Monocyte# 0.41 X10^3/uL; Monocyte% 8.2 % (0-10); NRBC Flagged by Analyzer 0 % (0-5); Neutrophil # 3.33 X10^3/uL (2.7-7.7); Neutrophil % 66.8 % (47-70); Platelet Count 225 K/mm3 (150-450); RBC Distribution Width CV 14.3 % (11.6-14.6); RBC Distribution Width SD 45.5 fl (35.1-43.9); Red Blood Count 3.95 M/mm3 (4.6-6.2)
--- NOTE | 2025-03-02 20:45 | CT_ITS ---
PROCEDURE: CTA CHEST W/WO CONTRAST 03/02/2025 REASON FOR EXAM: HYPOXIA TECHNIQUE: CTA imaging of the chest with intravenous contrast. Multiplanar and multisequence images were obtained. 3D, 3D post processing, 3D reconstructions, Maximum intensity projection (MIPs) Volume rendering and Shaded surface rendering was provided. One or more dose reduction techniques were used (e.g., Automated exposure control, adjustment of the mA and/or kV according to patient size, use of iterative reconstruction technique). FINDINGS: Thoracic Aorta: Atherosclerotic plaques. No aneurysm or dissection. Heart: Cardiomegaly. Small pericardial effusion. Pulmonary Vessels: No filling defect to suggest pulmonary embolism. Hardware: None Lymph nodes: Unremarkable. Lungs and Airways: No pneumonia, atelectasis, nodule, or mass. Pleura: No pleural effusion. Upper Abdomen: Unremarkable. Bones: Degenerative changes of the thoracic spine. CT/CTA Chest W/WO Contrast IMPRESSION: No CT evidence of pulmonary embolism. Cardiomegaly with a small pericardial effusion. Reading Location: [id number]
[2025-03-02] MEDS: Ipratropium/Albuterol Sulfate 3 ML AMPUL.NEB INHALATION (21:07)
[2025-03-02 21:10] LABS: Anion Gap 12 (5-15); BUN 18 mg/dL (4-19); BUN/Creat Ratio 17.6 RATIO (10-20); Calcium,Total 9.2 mg/dL (7.6-11.0); Carbon Dioxide 25.3 mmol/L (21.0-32.0); Chloride 103 mmol/L (98-108); Creatinine, Serum 1.02 mg/dL (0.70-1.20); EST Glomerular Filtration Rate 85 (>60); Estimated Creatinine Clearance 116.54 ml/min (50-250); Glucose 163 mg/dL (70-99); Potassium 3.3 mmol/L (3.3-5.1); Sodium Level 140 mmol/L (133-145)
[2025-03-02 21:39] LABS: Pro- Brain NATRIURETIC PEPTIDE 1559 pg/mL (<=900)
[2025-03-02] MEDS: Furosemide 40 MG/4 ML Vial IV (21:52)
--- NOTE | 2025-03-02 22:01 | PCM.HP.STD ---
[facility] - General General Date of Admission: 03/02/25 Date of Service: 03/02/25 Chief Complaint: SOB and Wheezing. 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 Mr. Trimble reports his symptoms began approximately 1 month prior to admission after several close relatives were diagnosed with Influenza A/B. He was subsequently evaluated by his PCP and he was then diagnosed with Influenza - even though he claims he was not formally tested - culminating in him being given a prescription for amoxicillin which he finished a few weeks ago with resolution of his cough, but not his SOB. Unfortunately, over the past ~10 days he has continued to have CHINO that has now progressed to SOB at rest with wheezing so he decided to come in for further evaluation and treatment. 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 He admits to redness of the skin of his abdomen with intense itching causing him to scratch frequently which hs made it worse. He denies associated fever, chills, nausea, vomiting, diarrhea, constipation, abdominal pain, chest pain, headache, SOB, known personal history of CHF but he does admit to acute worsening of his chronic LE lymphedema. In the ER he was noted to have a CTA of the chest with IV contrast that revealed no evidence of pulmonary embolism but did show Cardiomegaly with Small Pericardial Effusion with a corresponding elevated NT pro-BNP II of 1,559 pg/mL present on admission consistent with suspected new-onset AE of CHF of uncertain type complicated by clinical evidence of Acute Respiratory Insufficiency in addition to laboratory evidence of Hyperglycemia of 163 mg/dL present on admission suspicious for DM-2 and he was then admitted to the PCU for ongoing care for a stay that is expected to extend beyond 2 midnights. [facility] Medical History Shoulder pain HTN (hypertension) Home Medications ?Medication ?Instructions ?Recorded ?Last Taken ?Type aspirin 325 mg tablet 325 mg PO DAILY@0800 HEART HEALTH 11/19/13 03/02/25 History atenolol 100 mg-chlorthalidone 25 1 tab PO DAILY BLOOD PRESSURE 11/19/13 03/02/25 History mg tablet guanfacine 1 mg tablet 1 tablet PO QPM BLOOD PRESSURE 30 05/09/18 03/01/25 History days ##30 escitalopram oxalate 20 mg tablet 20 mg PO DAILY depression 01/29/19 03/02/25 History minoxidil 10 mg tablet 20 mg PO DAILY HAIR GROWTH 09/26/19 03/02/25 History finasteride 5 mg tablet 5 mg PO QPM 03/02/25 03/01/25 History ibuprofen 800 mg tablet 800 mg PO BID PRN PRN fever or pain 03/02/25 03/01/25 History losartan 100 mg tablet 100 mg PO DAILY 03/02/25 03/02/25 History nifedipine 30 mg tablet,extended 30 mg PO DAILY 03/02/25 03/02/25 History release 24 hr omeprazole 20 mg capsule,delayed 20 mg PO DAILY 03/02/25 03/02/25 History release tamsulosin 0.4 mg capsule 0.4 mg PO QHS 03/02/25 03/01/25 History Allergy/AdvReac Type Severity Reaction Status Date / Time No Known Allergies Allergy Verified 03/02/25 19:10 Social History Smoking Status: Never smoker alcohol intake: never ROS ROS Narrative Review of Systems: Constitutional: Patient denies fever or chills. Eyes: Patient denies changes in vision or discharge from eyes. ENT: Patient denies runny nose, sore throat or ear pain. Resp: Patient admits to CHINO that progressed to SOB at rest with wheezing but he denies cough. CV: Patient denies chest pain, palpitations, heart racing or LE edema. GI: Patient denies abdominal pain, nausea, vomiting, diarrhea or constipation. : Patient denies dysuria, hematuria or urinary frequency. MSK: Patient denies arthralgias or myalgias. Skin: Patient admits to redness on his abdomen but he denies wounds or jaundice. Psych: Patient denies symptoms of uncontrolled depression or anxiety. Neuro: Patient denies headache, paresthesias or focal neurologic deficits. Allergy: Patient denies lip swelling, tongue swelling or urticaria. Hematology: Patient denies easy bleeding or easy bruisability. Endocrinology: Patient denies polyuria, polydipsia, polyphagia or heat/cold intolerance. 14 point ROS otherwise negative except for positives noted above in HPI. Vital Signs Vital Signs Vital Signs: 03/02/25 19:10 03/02/25 19:10 03/02/25 20:01 Temperature 97 F L Temperature Source Temporal Pulse Rate 87 Respiratory Rate 15 Respiratory Effort Normal Non-Labored Respiratory Pattern Blood Pressure 164/88 H Blood Pressure Mean 113 Pulse Ox 85 96 Oxygen Delivery Method Room Air Nasal Cannula Nasal Cannula Oxygen Flow Rate (L/min) 2 2 03/02/25 20:22 03/02/25 20:22 03/02/25 20:35 Temperature 97.8 F Temperature Source Oral Pulse Rate 77 Respiratory Rate 17 Respiratory Effort Respiratory Pattern Blood Pressure 114/76 Blood Pressure Mean 88 Pulse Ox 94 Oxygen Delivery Method Nasal Cannula Nasal Cannula Nasal Cannula Oxygen Flow Rate (L/min) 2 2 03/02/25 21:07 03/02/25 21:09 03/02/25 21:45 Temperature 97.8 F Temperature Source Oral Pulse Rate 82 90 93 Respiratory Rate 22 H 18 18 Respiratory Effort Respiratory Pattern Tachypnea Blood Pressure 121/79 H 130/88 H Blood Pressure Mean 93 102 Pulse Ox 95 94 Oxygen Delivery Method Nasal Cannula Nasal Cannula Oxygen Flow Rate (L/min) 2 2 Weight Weight: 363 lb 12.203 oz Body Mass Index (BMI) 56.9 Physical Exam Const alert, oriented x3 and no apparent distress Constitutional Narrative: Morbidly obese and dyspneic with nontoxic appearance. General Appearance: cooperative HEENT normocephalic, head/scalp atraumatic, hearing grossly normal bilaterally and moist oral mucous membranes Eyes PERRL and EOMs intact bilaterally Neck no lymphadenopathy and supple Resp Resp Narrative: Diminished breath sounds throughout with faint scattered expiratory wheezing. Auscultation: wheezes Cardio regular rate and regular rhythm GI normal to inspection, nondistended, normoactive bowel sounds, soft to palpation, non-tender and non-distended GI Narrative: Redness of the skin of the abdomen with mild TTP noted. Extremity Extremity Narrative: Chronic LE lymphedema. Skin Skin Narrative: Redness of the skin of the abdomen with mild TTP noted. Neuro oriented x3, CN's II-XII intact bilaterally, moves all extremities and no focal motor deficits Sensorium / Orientation: awake, alert, oriented to person, oriented to place and oriented to time Speech: speech normal Psych affect normal Results Medical Records Data Attestation: I reviewed the patient's medical records Lab / Micro Data Attestation: I reviewed the patient's lab results. 03/02/25 19:53 03/02/25 19:53 Labs: Laboratory Results - last 24 hr 03/02/25 19:53: WBC 5.0, RBC 3.95 L, Hgb 11.6 L, Hct 34.6 L, MCV 87.6, MCH 29.4, MCHC 33.5, RDW Std Deviation 45.5 H, RDW Coeff of Bre 14.3, Plt Count 225, MPV 10.5, Immature Gran % (Auto) 0.400, Neut % (Auto) 66.8, Lymph % (Auto) 21.8, [place] % (Auto) 8.2, Eos % (Auto) 2.2, Baso % (Auto) 0.6, Absolute Neuts (auto) 3.3, Absolute Lymphs (auto) 1.09, Nucleated RBC % 0, Sodium 140, Potassium 3.3, Chloride 103, Carbon Dioxide 25.3, Anion Gap 12, BUN 18, Creatinine 1.02, Estim Creat Clear Calc 116.54, Est GFR (MDRD) Non-Af 85, BUN/Creatinine Ratio 17.6, Glucose 163 H, Calcium 9.2, NT pro BNP II 1559 H Imaging Radiology Impression Chest X-Ray 03/02/25 20:29 IMPRESSION: No Acute Findings. Reading Location: [facility] Chest CTA 03/02/25 20:45 IMPRESSION: No CT evidence of pulmonary embolism. Cardiomegaly with a small pericardial effusion. Reading Location: [facility] Assessment & Plan Assessment/Plan (1) CHF (congestive heart failure): QUALIFIERS: Heart failure chronicity: acute Heart failure type: unspecified Qualified Code(s): I50.9 - Heart failure, unspecified (2) Cardiomegaly: (3) Pericardial effusion: (4) Morbid obesity: (5) Lymphedema: (6) Obesity hypoventilation syndrome: (7) Respiratory insufficiency: (8) D-dimer, elevated: (9) Abdominal wall cellulitis: (10) Hyperglycemia: PLAN: Plan 1. Elevated NT pro-BNP II of 1,559 pg/mL present on admission consistent with suspected new-onset AE of CHF of uncertain type - Admit to PCU. Continue IV furosemide begun in the ER. Check daily NT pro-BNP II daily to follow trend. Strict I's & O's. Check echocardiogram to evaluate LVEF. Serialize troponin. Give acetaminophen prn pain or fever. 2. CTA of the chest with IV contrast that revealed no evidence of pulmonary embolism but did show Cardiomegaly with Small Pericardial Effusion complicating #1 - Echocardiogram pending for #1. Check viral respiratory panel in case of persistent viral infection adversely impacting his heart. 3. Acute Respiratory Insufficiency with intermittent mild wheezing due to #1 & #2 - Wean supplemental oxygen as tolerated. Give nebulizers prn for wheezing. 4. Super-morbid obesity; with BMI of 57 this admission plus OHS with Chronic LE Lymphedema adding to the burden of disease outlined from #1 - #3 - Weight loss will be recommended. Check TSH. Nocturnal CPAP will be offered. This complicates his case and may hamper recovery. 5. Abdominal Wall Cellulitis adding to the medical complexity of #1 - #4 - Start empiric IV ceftriaxone and monitor for improvement. 6. Elevated d-dimer of 0.53 present on admission - Check LE Doppler in AM to evaluate for DVT with CTA of chest negative for PE. 7. Hyperglycemia of 163 mg/dL present on admission suspicious for DM-2 - Check HgbA1c to confirm suspicion. 8. History of exertional dyspnea; s/p echocardiogram; with LVEF ~65% and stage-I diastolic dysfunction (2019) found during admission here - Noted with repeat echocardiogram pending at this time. 9. Essential hypertension; on atenolol-hydrochlorothiazide, nifedipine and guanfacine - Maintain home regimen plus give prn hydralazine IV for systolic blood pressure > 160 mmHg. 10. History of muscle spasms; on orphenadrine - Resume current treatment. 11. Depression with anxiety; on escitalopram and clonazepam - Continue home regimen. 12. BPH; on finasteride and tamsulosin - Maintain present therapy. 13. 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 14. GERD; on omeprazole - Resume PPI as before. 15. OA; with shoulder pain - Give prn acetaminophen as outlined in #1. 16. DVT prophylaxis - Enoxaparin 40 mg sq BID. Total time: Approximately (but not less than) 75 minutes. Charges/Coding Visit Charges Inpatient E&M: 99932 Init Hosp L3
--- NOTE | 2025-03-02 22:43 | ECHOCS_ITS ---
Reason For Study Reason For Study: CHF Procedure This was a 2D Doppler, Color Flow transthoracic echocardiogram. The study was technically difficult. Contrast injection was performed. Exam performed portable in patient room. Left Ventricle Normal LV size. Mild concentric left ventricular hypertrophy. The left ventricular ejection fraction is 70 %. Stage 1 diastolic dysfunction. Right Ventricle Normal right ventricle. Atria There is severe biatrial dilatation. Mitral Valve Trivial mitral valve insufficiency. Tricuspid Valve Trivial tricuspid valve insufficiency. Unable to estimate RV systolic pressure due to insufficient tricuspid regurgitant envelope. Aortic Valve Trisinus/trileaflet aortic valve. Pulmonic Valve The pulmonic valve is not well visualized. Great Vessels Normal sized aortic root. Pericardium/Pleural Trivial to small pericardial effusion. Medication Diluted definity 2ml given slow IV push to enhance endocardial definition. MMode/2D Measurements & Calculations LVIDd: 5.5 cm IVSd: 1.2 cm Ao root diam: 3.9 cm LVIDs: 3.4 cm LVPWd: 1.2 cm FS: 38.7 % LAV(MOD-bp): 84.5 ml LVAd ap4: 28.0 cm2 SV(MOD-sp4): 57.6 ml LAV(MOD-bp) Indexed: 32.4 ml/m2 LVLd ap4: 8.1 cm SI(MOD-sp4): 22.1 ml/m2 LAV(MOD-sp2): 71.1 ml EDV(MOD-sp4): 83.1 ml LAV(MOD-sp4): 95.5 ml EDV(sp4-el): 82.1 ml LVAs ap4: 13.7 cm2 LVLs ap4: 6.3 cm ESV(MOD-sp4): 25.5 ml ESV(sp4-el): 25.4 ml EF(MOD-sp4): 69.3 % EF(sp4-el): 69.0 % SV(sp4-el): 56.6 ml LA A4 area: 28.7 cm2 LA dimension(2D): 5.0 cm Doppler Measurements & Calculations MV E max maximus: 131.3 cm/sec Lat Peak E' Maximus: 10.5 cm/sec Med Peak E' Maximus: 8.2 cm/sec E/E' lat: 12.6 E/E' med: 16.0 MV V2 max: 162.5 cm/sec Ao V2 max: 169.3 cm/sec LV V1 max: 134.2 cm/sec MV max P.6 mmHg Ao max P.5 mmHg LV V1 max P.2 mmHg MV V2 mean: 81.9 cm/sec Ao V2 mean: 113.6 cm/sec LV V1 mean P.6 mmHg MV mean P.4 mmHg Ao mean P.0 mmHg LV V1 mean: 87.5 cm/sec MV V2 VTI: 38.5 cm Ao V2 VTI: 34.2 cm LV V1 VTI: 26.7 cm AV (velocity ratio): 0.78 PA V2 max: 121.4 cm/sec ECHO/Echo Complete W/ Contrast Interpretation Summary The left ventricular ejection fraction is 70 %. Stage 1 diastolic dysfunction. There is severe biatrial dilatation. Trivial to small pericardial effusion. The study was technically difficult. Ordering Physician: Thierno Campos Performed By: Jhonny Martines RCS
--- NOTE | 2025-03-02 22:54 | CT_ITS ---
PROCEDURE: EXTREMITY LOWER WITH CONTRAST 03/02/2025 REASON FOR EXAM: ULCER TECHNIQUE: Axial CT images of the left foot obtained with intravenous contrast. Coronal and Sagittal reconstruction series were provided. One or more dose reduction techniques were used (e.g., Automated exposure control, adjustment of the mA and/or kV according to patient size, use of iterative reconstruction technique). FINDINGS: Bones: No acute fracture or dislocation. No bony destruction to suggest osteomyelitis. Small plantar and posterior calcaneal enthesophytes. Joints: Normal alignment of the joints in the foot. Soft Tissues: Dorsal soft tissue swelling. No loculated fluid collection to suggest abscess. CT/Extremity Lower WITH Contrast IMPRESSION: Dorsal soft tissue swelling but no abscess or osteomyelitis. Reading Location: [id number]
[2025-03-02 23:06] LABS: Erythrocyte Sedimentation Rate 9 mm/hr (0-20)
[2025-03-02 23:24] LABS: Allen Test Positive; Base Excess 5 mmol/L (-2 to +2); Bicarbonate 30.3 mmol/L (22-26); Blood Gas Specimen Type ART; Mode Not entered; O2 Delivery Device Cannula; PO2 44 mmHG (75-100); SITE L Radial; SO2 79 % (95-99); Total Carbon Dioxide 32 mmol/L; pCO2 50.5 mmHg (35-45); pH 7.39 (7.35-7.45)
[2025-03-02 23:26] LABS: CRP 7.71 mg/L (0.0-3.0); Hemoglobin A1c 5.6 % (<=5.6); Phosphorus 2.9 mg/dL (2.7-4.5)
[2025-03-02 23:26] LABS: Bacteria 0 SEEN /hpf (None Seen); Mucous, Urine 0 SEEN /hpf (<or=2+); Red Blood Cells-Urine 0 SEEN /hpf (0-5); Squamous Epithelial Cells - UA 0 SEEN /hpf (0-5); White Blood Cells 0 SEEN /hpf (0-5)
[2025-03-02 23:31] LABS: Color, Urine Yellow (Yellow); Glucose, Dipstick Normal (Normal); Ketone-Dipstick Negative (Negative); Leukocyte Esterase-Dipstick Negative /ul (Negative); Nitrite-Dipstick Negative (Negative); Occult Blood-Urine Negative /ul (Negative); Protein-Dipstick Negative (Negative); Urine Bilirubin Dipstick Negative (Negative); Urine Clarity Clear (Clear); Urine Urobilinogen Normal (Normal)
[2025-03-02 23:49] LABS: D-Dimer Quantitative (DVT/PE) 0.53 FEU/ug/m (0.27-0.49)
[2025-03-02] MEDS: Albuterol 2.5 MG/3 ML VIAL.NEB. INHALATION (23:53)
[2025-03-03 00:09] LABS: Magnesium 1.8 mg/dL (1.5-2.2); Vitamin B12 260 pg/mL (180-914)
[2025-03-03] MEDS: Enoxaparin 40 MG/0.4 ML Syringe SC ×3 (00:10→21:01)
[2025-03-03 00:13] LABS: Blood Gas Specimen Type VEN; O2 Delivery Device Not entered; SITE Not entered; VBG BASE EXCESS 5 mmol/L (-1.0-3.5); VBG Bicarbonate 29 mmol/L (22-26); VBG PO2 95 mmHg (25-40); VBG SO2 98 % (50-70); VBG TCO2 31 mmol/L (23-33); VBG pCO2 42.5 mmHg (41-51); VBG pH 7.45 (7.32-7.42)
[2025-03-03 00:16] VITALS: BMI 56.8
[2025-03-03] MEDS: DiphenhydrAMINE 50 MG/ML Syringe 25 MG IV (00:26)
--- NOTE | 2025-03-03 00:31 | VDLE_ITS ---
Reason For Study Reason For Study: Elevated D Dimer RIGHT LEFT GSV is normal. GSV is normal. CFV is compressible, spontaneous, phasic, competent CFV is compressible, spontaneous, phasic, competent, and demonstrates normal augmentation. and demonstrates normal augmentation. FV is compressible, spontaneous, phasic, competent FV is compressible, spontaneous, phasic, competent and demonstrates normal augmentation. and demonstrates normal augmentation. POP V is compressible, spontaneous, phasic, competent POP V is compressible, spontaneous, phasic, competent and demonstrates normal augmentation. and demonstrates normal augmentation. T/P Trunk is compressible. T/P Trunk is compressible. PTV is compressible. PTV is compressible. RT PerV is compressible. LT PerV is compressible. Procedure This is a venous duplex using B-mode, color flow and spectral Doppler. Exam performed portable in patient room. The exam was diagnostic. A preliminary report was called and/or faxed to PCU natural gas engineer HANNAH. VL/Venous Duplex US - Fabio Extrem Interpretation Summary Deep veins of the lower extremities are bilaterally patent and compressible seg mentally. There is no evidence of deep vein thrombosis on either side. Valvular competence appears intact within the p roximal deep venous systems bilaterally. The great saphenous veins appear bilaterally patent and compressible segmentall y. Ordering Physician: Thierno Campos Referring Physician: MD Russell Eduard Performed By: Danilo Crystal, RVT
[2025-03-03 01:01] LABS: FOLATES,SERUM (FOLIC ACID) 5.48 ng/mL (4.60-34.80)
[2025-03-03] MEDS: Tamsulosin HCl 0.4 MG Capsule PO (01:51)
[2025-03-03] MEDS: Ceftriaxone 1 GM/50 ML BAG IV (01:53)
[2025-03-03 03:22] VITALS: BP 145/96; PULSE 87; RESP 18; TEMP 36.1; O2SAT 97
[2025-03-03 05:58] LABS: Absolute Lymphocyte Count 1.01 X10^3/uL (0.83-4.51); Absolute Neutrophil Count 2.8 X10^3/uL (2.0-7.7); Basophil# 0.03 X10^3/uL; Basophil% 0.7 % (0-1); Eosinophil# 0.09 X10^3/uL; Eosinophils% 2.1 % (0-5); Hematocrit 35.1 % (40-54); Hemoglobin 11.6 g/dL (13.0-16.5); Lymphocyte # 1.01 X10^3/ul (0.83-4.51); Lymphocyte % 23.3 % (19-41); Mean Corpuscular Hgb 29.5 pg (27.0-32.0); Mean Corpuscular Volume 89.3 fL (80-94); Mean Platelet Vol. 10.3 fl (6.2-12.0); Monocyte# 0.37 X10^3/uL; Monocyte% 8.5 % (0-10); NRBC Flagged by Analyzer 0 % (0-5); Neutrophil # 2.82 X10^3/uL (2.7-7.7); Neutrophil % 65.2 % (47-70); Platelet Count 215 K/mm3 (150-450); RBC Distribution Width CV 14.3 % (11.6-14.6); RBC Distribution Width SD 47.1 fl (35.1-43.9); Red Blood Count 3.93 M/mm3 (4.6-6.2); White Blood Count 4.3 K/mm3 (4.4-11.0)
[2025-03-03 06:39] LABS: Pro- Brain NATRIURETIC PEPTIDE 1568 pg/mL (<=900)
[2025-03-03 07:31] LABS: Cholesterol 140 mg/dL (<=200); High Density Lipoprotein 29 mg/dL; Low Density Lipoprotein Calc. 88 mg/dL; Triglycerides 115 mg/dL; Very Low Density Lipoprotein 23 mg/dL (5-40); cholesterol:hdl ratio screen 4.83
[2025-03-03 07:32] LABS: ALB/GLOB Ratio 1.2 RATIO (0.9-2.4); AST(SGOT) 89 U/L (<=37); Alanine Aminotransfer ALT/SGPT 36 U/L (<=46); Albumin, Serum 3.9 g/dL (3.5-5.0); Alkaline Phosphatase 49 U/L (40-129); Anion Gap 12 (5-15); BUN 15 mg/dL (4-19); BUN/Creat Ratio 12.7 RATIO (10-20); Calcium,Total 9.2 mg/dL (7.6-11.0); Carbon Dioxide 26.7 mmol/L (21.0-32.0); Chloride 99 mmol/L (98-108); Creatinine, Serum 1.19 mg/dL (0.70-1.20); EST Glomerular Filtration Rate 70 (>60); Estimated Creatinine Clearance 99.78 ml/min (50-250); Globulin 3.1 g/dL (2.2-4.2); Glucose 117 mg/dL (70-99); Potassium 4.2 mmol/L (3.3-5.1); Sodium Level 138 mmol/L (133-145); Total Bilirubin 1.47 mg/dL (0.00-1.30)
[2025-03-03 09:12] VITALS: BP 153/85; PULSE 86; RESP 20; TEMP 36.4; O2SAT 94
[2025-03-03] MEDS: Minoxidil 10 MG Tablet 20 MG PO (09:16)
[2025-03-03] MEDS: Furosemide 40 MG/4 ML Vial IV (09:16)
[2025-03-03] MEDS: Chlorthalidone 50 MG Tablet 25 MG PO (09:16)
[2025-03-03] MEDS: Escitalopram Oxalate 20 MG Tablet PO (09:17)
[2025-03-03] MEDS: Aspirin 325 MG Tablet PO (09:17)
[2025-03-03] MEDS: NIFEdipine 30 MG Tablet PO (09:17)
[2025-03-03] MEDS: Atenolol 100 MG Tablet PO (09:17)
[2025-03-03] MEDS: Pantoprazole Sodium 20 MG Tablet PO (09:17)
[2025-03-03] MEDS: Losartan Potassium 100 MG Tablet PO (09:17)
--- NOTE | 2025-03-03 09:30 | CASEMGMT ---
KEVIN NEWMAN Face to Face with patient for initial transition planning/care coordination assessment. KEVIN NEWMAN introduced self and role at [facility]. Patient lying in bed, alert and oriented. Patient willing to participate in assessment and is able to answer all questions appropriately. Care providers, pharmacy, and demographics verified. Strata: 1 PCP: Russell Specialists: none Preferred Pharmacy: [facility] Insurance: [employer] Prescription Benefit: yes Living Will/HPOA: none LNOK: , daughter Living Arrangements: Patient lives with , daughter, and 4 grandchildren in a single story home, 3 steps and railing to enter. Patient states he is independent at home. Transportation: self, DME/HHC: Patient denies DME in the home. No previous HHC or SNF. Patient does not have preference for DME is needed, will monitor for home oxygen. Per insurance website [employer] is not in-network. [facility] and [facility] are in network but do no do weekend setups, KEVIN NEWMAN updated hospitalist. Patient wishes to discharge home, denies need for home health at this time. Patient states he has no further needs or concerns at this time. CM to follow for discharge planning needs that may arise. Disposition Plan: Patient to discharge home with family support and follow-up plans in place. Will monitor for home oxygen at discharge. Charito DELGADO, RN, CM
--- NOTE | 2025-03-03 11:11 | PN.HOSP_ITS ---
Reason for Visit Reason for Visit: Diagnoses Other pericardial effusion (noninflammatory) (03/02/25) Cardiomegaly (03/02/25) Lymphedema, not elsewhere classified (03/02/25) Cellulitis of abdominal wall (03/02/25) Hyperglycemia, unspecified (03/02/25) Other specified abnormal findings of blood chemistry (03/02/25) Subjective Subjective Patient was seen and examined today, he is resting quietly and does not appear to be in any distress. Objective Data Objective Data Vital Signs: Vital Signs Temp Pulse Resp BP Pulse Ox O2 Del Method O2 Flow Rate 97.6 F L 86 20 H 153/85 H 94 Nasal Cannula 2 03/03/25 09:12 03/03/25 09:12 03/03/25 09:12 03/03/25 09:12 03/03/25 09:12 03/03/25 10:00 03/03/25 10:00 Oxygen Flow Rate (L/min) 2 Oxygen Delivery Method Nasal Cannula Weight: 164.7 kg Body Mass Index (BMI) 56.8 Intake & Output: Intake and Output for Last 24 Hours 03/01/25 03/02/25 03/03/25 23:59 23:59 23:59 Intake Total 50 / 50 Output Total 250 / 250 Balance -250 / -250 50 / 50 Lab / Micro Data 03/03/25 04:41 03/03/25 04:41 Labs: Laboratory Results - last 24 hr 03/02/25 19:53: WBC 5.0, RBC 3.95 L, Hgb 11.6 L, Hct 34.6 L, MCV 87.6, MCH 29.4, MCHC 33.5, RDW Std Deviation 45.5 H, RDW Coeff of Bre 14.3, Plt Count 225, MPV 10.5, Immature Gran % (Auto) 0.400, Neut % (Auto) 66.8, Lymph % (Auto) 21.8, Allen % (Auto) 8.2, Eos % (Auto) 2.2, Baso % (Auto) 0.6, Absolute Neuts (auto) 3.3, Absolute Lymphs (auto) 1.09, Nucleated RBC % 0, ESR 9, D-Dimer Quant (PE/DVT) 0.53 H*, Sodium 140, Potassium 3.3, Chloride 103, Carbon Dioxide 25.3, Anion Gap 12, BUN 18, Creatinine 1.02, Estim Creat Clear Calc 116.54, Est GFR (MDRD) Non-Af 85, BUN/Creatinine Ratio 17.6, Glucose 163 H, Hemoglobin A1c 5.6, Calcium 9.2, Phosphorus 2.9, Magnesium 1.8, C-React Prot Ext Range 7.71 H, NT pro BNP II 1559 H, Vitamin B12 260, TSH 3.740 03/02/25 23:11: Urine Color Yellow, Urine Clarity Clear, Urine pH 6.0, Ur Specific [place] 1.010, Urine Protein Negative, Urine Glucose (UA) Normal, Urine Ketones Negative, Urine Occult Blood Negative, Urine Nitrite Negative, Urine Bilirubin Negative, Urine Urobilinogen Normal, Ur Leukocyte Esterase Negative, Urine RBC 0 SEEN, Urine WBC 0 SEEN, Ur Squamous Epith Cells 0 SEEN, Urine Bacteria 0 SEEN, Urine Mucus 0 SEEN 03/03/25 00:00: Serum Folate 5.48 03/03/25 04:41: WBC 4.3 L, RBC 3.93 L, Hgb 11.6 L, Hct 35.1 L, MCV 89.3, MCH 29.5, MCHC 33.0, RDW Std Deviation 47.1 H, RDW Coeff of Bre 14.3, Plt Count 215, MPV 10.3, Immature Gran % (Auto) 0.200, Neut % (Auto) 65.2, Lymph % (Auto) 23.3, Allen % (Auto) 8.5, Eos % (Auto) 2.1, Baso % (Auto) 0.7, Absolute Neuts (auto) 2.8, Absolute Lymphs (auto) 1.01, Nucleated RBC % 0, Sodium 138, Potassium 4.2, Chloride 99, Carbon Dioxide 26.7, Anion Gap 12, BUN 15, Creatinine 1.19, Estim Creat Clear Calc 99.78, Est GFR (MDRD) Non-Af 70, BUN/Creatinine Ratio 12.7, G lucose 117 H, Calcium 9.2, Total Bilirubin 1.47 H, AST 89 H, ALT 36, Alkaline Phosphatase 49, NT pro BNP II 1568 H, Total Protein 7.0, Albumin 3.9, Globulin 3.1, Albumin/Globulin Ratio 1.2, Triglycerides 115, Cholesterol 140, LDL Cholesterol, Calc 88, VLDL Cholesterol 23, HDL Cholesterol 29 L, Cholesterol/HDL Ratio 4.83 Micro: Microbiology 03/02/25 23:05 Mucosa - Nasopharyngeal Respiratory Panel (PCR) - Final ABG Data ABG results: ABG 03/02/25 03/03/25 23:21 00:10 Specimen Type ART CANDICE Sample Site L Radial Not entered pH 7.39 Bicarbonate Actual 30.3 H Total CO2 32 Base Excess 5 H O2 Saturation 79 L O2 % 2.0 ABG pCO2 50.5 H ABG pO2 44 L Todd Test Positive VBG pH 7.45 H VBG pO2 95 H VBG HCO3 29 H VBG Total CO2 31 VBG O2 Sat (Calc) 98 H VBG Base Excess 5 H POC Mix VBG pCO2 Pt Tmp 42.5 O2 Delivery Device Cannula Not entered Vent Mode Not entered Radiography Diagnostic Testing: Radiology Impression Chest X-Ray 03/02/25 20:29 IMPRESSION: No Acute Findings. Reading Location: [facility] Chest CTA 03/02/25 20:45 IMPRESSION: No CT evidence of pulmonary embolism. Cardiomegaly with a small pericardial effusion. Reading Location: [facility] Lower Extremity CT 03/02/25 22:54 IMPRESSION: Dorsal soft tissue swelling but no abscess or osteomyelitis. Reading Location: [facility] Physical Exam Const alert, oriented x3 and no apparent distress Constitutional Narrative: Patient has class III obesity General Appearance: cooperative, well kempt and well developed Orientation / Consciousness: awake, oriented to person, oriented to place and oriented to time HEENT normocephalic, head/scalp atraumatic and moist oral mucous membranes Eyes PERRL, EOMs intact bilaterally and conjunctivae normal Neck supple, no JVD, thyroid normal and no carotid bruits General: trachea midline Resp normal respiratory effort, no retractions, no use of accessory muscles and clear to auscultation bilaterally Auscultation: Negative for rales, rhonchi or wheezes Cardio regular rate, regular rhythm, S1 normal heart sound, S2 normal heart sound, no murmurs, no rub and no gallops GI normal to inspection, nondistended, normoactive bowel sounds, soft to palpation, non-tender and non-distended Extremity Extremity Narrative: Patient has generalized edema in the lower legs bilaterally which is nonpitting Skin no rashes or lesions noted General Skin Exam: no breakdown Neuro oriented x3, CN's II-XII intact bilaterally, no focal motor deficits and no sensory deficits noted Sensorium / Orientation: awake and alert Speech: speech normal Psych affect normal Assessment & Plan Assessment/Plan (1) CHF (congestive heart failure): QUALIFIERS: Heart failure type: unspecified Heart failure chronicity: acute Qualified Code(s): I50.9 - Heart failure, unspecified PLAN: Plan 1. Acute congestive heart failure with preserved ejection fraction-continue IV Lasix at this time I have changed to Lasix to 20 mg every 8 hours #2 generalized edema secondary to congestive heart failure-again patient is on IV Lasix, patient is also on minoxidil which can cause edema. #3 essential hypertension-patient is on multiple hypertensive medications, blood pressure will be monitored and these medications will be adjusted as needed #4 chronic depression-patient is on Lexapro #5 class III obesity-complicates care, management, recovery, and prognosis I do not feel the patient has cellulitis of the abdominal wall, I elected to stop his Rocephin Total clinical time spent by myself addressing the patient's medical issues, reviewing all of his data, and collaborating with patient's care team: 35 minutes Charges/Coding Visit Charges Inpatient E&M: 47070 Subs Hosp L2
[2025-03-03 14:58] VITALS: BP 158/95; PULSE 74; RESP 18; TEMP 36.5; O2SAT 95
[2025-03-03] MEDS: Furosemide 20 MG/2 ML VIAL IV ×2 (15:03→21:04)
[2025-03-03] MEDS: Acetaminophen 325 MG Tablet 650 MG PO ×2 (15:03→21:11)
[2025-03-03 20:59] VITALS: BP 113/59; PULSE 79; RESP 18; TEMP 36.8; O2SAT 94
[2025-03-03] MEDS: Finasteride 5 MG Tablet PO (21:02)
[2025-03-03] MEDS: GUANFACINE HCL 1 MG TABLET PO (21:02)
[2025-03-03] MEDS: 0.9% Saline Lock 10 ML Syringe IV (21:04)
[2025-03-03] MEDS: MELATONIN 3 MG TABLET PO (21:11)
[2025-03-04 02:12] VITALS: BMI 55.8
[2025-03-04 03:00] VITALS: BP 124/84; PULSE 76; RESP 18; TEMP 36.4; O2SAT 94
[2025-03-04] MEDS: Furosemide 20 MG/2 ML VIAL IV ×3 (06:04→21:26)
[2025-03-04] MEDS: 0.9% Saline Lock 10 ML Syringe IV ×3 (06:04→21:27)
[2025-03-04 09:00] VITALS: O2SAT 88
[2025-03-04 09:21] VITALS: BP 143/82; PULSE 74; RESP 18; TEMP 36.6; O2SAT 98
[2025-03-04] MEDS: Enoxaparin 40 MG/0.4 ML Syringe SC (09:23)
[2025-03-04] MEDS: Atenolol 100 MG Tablet PO (09:23)
[2025-03-04] MEDS: Pantoprazole Sodium 20 MG Tablet PO (09:23)
[2025-03-04] MEDS: NIFEdipine 30 MG Tablet PO (09:24)
[2025-03-04] MEDS: Minoxidil 10 MG Tablet 20 MG PO (09:24)
[2025-03-04] MEDS: Aspirin 325 MG Tablet PO (09:24)
[2025-03-04] MEDS: Losartan Potassium 100 MG Tablet PO (09:24)
[2025-03-04] MEDS: Escitalopram Oxalate 20 MG Tablet PO (09:24)
[2025-03-04 09:50] VITALS: O2SAT 94
[2025-03-04 10:22] LABS: Anion Gap 10 (5-15); BUN 12 mg/dL (4-19); BUN/Creat Ratio 11.8 RATIO (10-20); Calcium,Total 9.5 mg/dL (7.6-11.0); Carbon Dioxide 33.8 mmol/L (21.0-32.0); Chloride 94 mmol/L (98-108); EST Glomerular Filtration Rate 87 (>60); Estimated Creatinine Clearance 117.38 ml/min (50-250); Glucose 160 mg/dL (70-99); Sodium Level 138 mmol/L (133-145)
[2025-03-04 15:07] VITALS: BP 128/55; PULSE 76; RESP 20; TEMP 36.4; O2SAT 93
[2025-03-04] MEDS: Acetaminophen 325 MG Tablet 650 MG PO ×2 (15:15→21:25)
[2025-03-04] MEDS: Sodium Chloride 0.65% 1 SPRAY SPRAY.BTL 2 SPRAY NASAL (15:15)
--- NOTE | 2025-03-04 17:04 | PCM.PN.HOSP ---
Reason for Visit Reason for Visit: Diagnoses Other pericardial effusion (noninflammatory) (03/02/25) Heart failure, unspecified (03/02/25) Cardiomegaly (03/02/25) Lymphedema, not elsewhere classified (03/02/25) Cellulitis of abdominal wall (03/02/25) Hyperglycemia, unspecified (03/02/25) Other specified abnormal findings of blood chemistry (03/02/25) Subjective Subjective Patient was seen and examined today, he states his breathing is better, patient was noted to be in atrial fib-he states he has had an irregular heartbeat before and his doctor told him to take aspirin. I discussed taking anticoagulants with the patient and he is not against taking anticoagulants if he has to. Patient is already on atenolol, telemetry shows his heart rate to be mostly in the 70s and 80s. Patient's echocardiogram yesterday showed a normal ejection fraction with biatrial dilatation, there was no comment on the patient's pulmonary artery pressure. Objective Data Objective Data Vital Signs: Vital Signs Temp Pulse Resp BP Pulse Ox O2 Del Method O2 Flow Rate 97.6 F L 76 20 H 128/55 H 93 Room Air 2 03/04/25 15:07 03/04/25 15:07 03/04/25 15:07 03/04/25 15:07 03/04/25 15:07 03/04/25 15:07 03/04/25 09:21 Oxygen Flow Rate (L/min) 2 Oxygen Delivery Method Room Air Weight: 161.7 kg Body Mass Index (BMI) 55.8 Intake & Output: Intake and Output for Last 24 Hours 03/02/25 03/03/25 03/04/25 23:59 23:59 23:59 Intake Total 730 / 730 480 / 480 Output Total 250 / 250 2590 / 2590 1460 / 1460 Balance -250 / -250 -1860 / -1860 -980 / -980 Lab / Micro Data 03/03/25 04:41 03/04/25 09:35 Labs: Laboratory Results - last 24 hr 03/03/25 21:45: Phosphorus 4.0 03/04/25 09:35: Sodium 138, Potassium 4.0, Chloride 94 L, Carbon Dioxide 33.8 H, Anion Gap 10, BUN 12, Creatinine 1.00, Estim Creat Clear Calc 117.38, Est GFR (MDRD) Non-Af 87, BUN/Creatinine Ratio 11.8, Glucose 160 H, Calcium 9.5 Micro: Microbiology 03/02/25 23:05 Mucosa - Nasopharyngeal Respiratory Panel (PCR) - Final Physical Exam Narrative alert, oriented x3 and no apparent distress Constitutional Narrative: Patient has class III obesity General Appearance: cooperative, well kempt and well developed Orientation / Consciousness: awake, oriented to person, oriented to place and oriented to time HEENT normocephalic, head/scalp atraumatic and moist oral mucous membranes Eyes PERRL, EOMs intact bilaterally and conjunctivae normal Neck supple, no JVD, thyroid normal and no carotid bruits General: trachea midline Resp normal respiratory effort, no retractions, no use of accessory muscles and clear to auscultation bilaterally Auscultation: Negative for rales, rhonchi or wheezes Cardio irregular rate, irregular rhythm, S1 normal heart sound, S2 normal heart sound, no murmurs, no rub and no gallops GI normal to inspection, nondistended, normoactive bowel sounds, soft to palpation, non-tender and non-distended Extremity Extremity Narrative: Patient has generalized edema in the lower legs bilaterally which is nonpitting Skin no rashes or lesions noted General Skin Exam: no breakdown Neuro oriented x3, CN's II-XII intact bilaterally, no focal motor deficits and no sensory deficits noted Sensorium / Orientation: awake and alert Speech: speech normal Psych affect normal Assessment & Plan Assessment/Plan (1) CHF (congestive heart failure): QUALIFIERS: Heart failure type: unspecified Heart failure chronicity: acute Qualified Code(s): I50.9 - Heart failure, unspecified PLAN: Plan 1. Acute congestive heart failure with preserved ejection fraction-continue IV Lasix at this time #2 generalized edema secondary to congestive heart failure-again patient is on IV Lasix, patient is also on minoxidil which can cause edema. #3 essential hypertension-patient is on multiple hypertensive medications, blood pressure will be monitored and these medications will be adjusted as needed #4 Atrial fibrillation-new onset, according to the patient he does not have a history of atrial fibrillation, I have started him on Eliquis 5 mg twice a day, he is already on a rate limiting agent (atenolol), he was taking a combination of atenolol and chlorthalidone-when he is discharged he will need a prescription for atenolol and Lasix. #5 class III obesity-complicates care, management, recovery, and prognosis #6 chronic depression-patient is on Lexapro Total clinical time spent by myself addressing the patient's medical issues, reviewing all of his data, and collaborating with patient's care team: 35 minutes Charges/Coding Visit Charges Inpatient E&M: 67069 Subs Hosp L2
[2025-03-04 21:10] VITALS: BP 135/79; PULSE 71; RESP 18; TEMP 36.8; O2SAT 94
[2025-03-04] MEDS: MELATONIN 3 MG TABLET PO (21:25)
[2025-03-04] MEDS: APIXABAN 5 MG TABLET PO (21:25)
[2025-03-04] MEDS: Tamsulosin HCl 0.4 MG Capsule PO (21:26)
[2025-03-04] MEDS: GUANFACINE HCL 1 MG TABLET PO (21:26)
[2025-03-04] MEDS: Finasteride 5 MG Tablet PO (21:26)
[2025-03-05] VITALS (7 sets, daily range): BP systolic 111–161; BP diastolic 61–98; PULSE 72–74; RESP 14–20; TEMP 36.4–36.7; O2SAT 87–94; BMI 54.5
[2025-03-05] MEDS: Furosemide 20 MG/2 ML VIAL IV (05:41)
[2025-03-05] MEDS: 0.9% Saline Lock 10 ML Syringe IV ×2 (05:41→11:12)
[2025-03-05] MEDS: Acetaminophen 325 MG Tablet 650 MG PO (06:17)
[2025-03-05] MEDS: APIXABAN 5 MG TABLET PO (08:21)
[2025-03-05] MEDS: Atenolol 100 MG Tablet PO (08:21)
[2025-03-05] MEDS: Losartan Potassium 100 MG Tablet PO (08:22)
[2025-03-05] MEDS: Pantoprazole Sodium 20 MG Tablet PO (08:22)
[2025-03-05] MEDS: Minoxidil 10 MG Tablet 20 MG PO (08:22)
[2025-03-05] MEDS: NIFEdipine 30 MG Tablet PO (08:23)
[2025-03-05] MEDS: Escitalopram Oxalate 20 MG Tablet PO (08:23)
[2025-03-05] MEDS: Furosemide 40 MG/4 ML Vial IV (11:11)
--- NOTE | 2025-03-05 14:46 | DS.PCM_ITS ---
Providers Date of Admission: 03/02/25 Date of Discharge: 03/05/25 Primary Care Physician: Dr. Eduard Wells MD Reason For Visit: AE CHR, ACUTE BRONCHOSPASM, OHS AND Diagnosis Discharge Diagnosis (1) CHF (congestive heart failure): Status: Acute Code(s): I50.9 - Heart failure, unspecified Qualifiers: Heart failure chronicity: acute Heart failure type: unspecified Q ualified Code(s): I50.9 - Heart failure, unspecified Medications at Discharge Home Medications guanfacine 1 mg tablet 1 tablet PO QPM BLOOD PRESSURE 30 days ##30 05/09/18 escitalopram oxalate 20 mg tablet 20 mg PO DAILY depression 01/29/19 minoxidil 10 mg tablet 20 mg PO DAILY HAIR GROWTH 09/26/19 finasteride 5 mg tablet 5 mg PO QPM 03/02/25 losartan 100 mg tablet 100 mg PO DAILY 03/02/25 nifedipine 30 mg tablet,extended release 24 hr 30 mg PO DAILY 03/02/25 omeprazole 20 mg capsule,delayed release 20 mg PO DAILY 03/02/25 tamsulosin 0.4 mg capsule 0.4 mg PO QHS 03/02/25 apixaban 5 mg tablet (Eliquis) 5 mg PO BID 30 days #60 tabs 03/05/25 aspirin 81 mg chewable tablet 81 mg PO DAILY@0800 30 days #30 tabs 03/05/25 atenolol 100 mg tablet 100 mg PO DAILY 30 days #30 tabs 03/05/25 furosemide 20 mg tablet (Lasix) 20 mg PO DAILY PRN edema #30 tabs 03/05/25 Hospital Course Operations None Procedures EKG, Transthoracic echo and - (Chest x-ray, CTA chest, CT lower extremity, venous Doppler study) Summary of Care Provided Minutes Spent on Discharge: 35 Hospital Course: Patient is a 59-year-old male who presented to [facility] ED on 03/02/2025 with worsening shortness of breath with exertion. Hospital course as noted below. Patient discharged home in stable condition on 03/05. 1. Mild acute HFpEF with hypoxia, improved ? Not on home oxygen. Presented with progressive shortness of breath with exertion and worsening lower extremity edema. Required up to 3 L nasal cannula during hospitalization. CTA chest showed no PE, did show cardiomegaly with mild pulmonary edema. Found to be in new A-fib on admit. Echo showed EF 70%, mild concentric LV hypertrophy, stage I diastolic dysfunction, severe biatrial dilation, no other abnormalities. Given atrial dilation, suspected patient has been in A-fib for some time and this led to mild progressive volume overload. Treated with IV Lasix while inpatient with improvement. Completed O2 testing on day of discharge and did not require any supplemental oxygen. Given only mild findings on echo, will only prescribe Lasix 20 mg daily as needed on discharge. 2. New onset rate controlled A-fib ? EKG on admit showed A-fib with rate around 90. Patient notably is on home atenolol which presumably was controlling his rate. Echo findings as noted above. Started on anticoagulation and will continue Eliquis on discharge. Continue atenolol on discharge as well. Chronic medical conditions: ? Class III obesity: BMI 54 on admit. Encouraged weight loss. Complicated hospital course, care and prognosis. ? Hypertension: Continue home atenolol, losartan and nifedipine. Prescribed low-dose Lasix as needed on discharge as noted above. ? GERD: Continue home PPI. ? BPH with obstructive symptoms: Continue home finasteride and tamsulosin. ? Depression: Continue home escitalopram. ? Hair loss: Continue home minoxidil. Total clinical time spent by myself addressing the patient's medical issues, reviewing all the data, and collaborating with patient's care team: 35 minutes. Physical Exam Const alert, oriented x3 and no apparent distress Constitutional Narrative: Pleasant middle-age male, class III obesity, sitting back comfortably in bed, conversing normally, in no acute distress. General Appearance: cooperative and comfortable HEENT normocephalic, head/scalp atraumatic, hearing grossly normal bilaterally, nasal mucous membranes and turbinates normal and moist oral mucous membranes Eyes PERRL, EOMs intact bilaterally and conjunctivae normal Neck full ROM Chest inspection of chest normal Resp normal respiratory effort, normal air movement, no use of accessory muscles and clear to auscultation bilaterally Cardio regular rate, regular rhythm, no murmurs and peripheral pulses 2+ throughout GI normal to inspection, nondistended, normoactive bowel sounds, soft to palpation, non-tender and non-distended Back/Spine normal ROM Extremity normal to inspection and full ROM Extremity Narrative: Trace nonpitting lower extremity edema noted, much improved from admission. Skin no rashes or lesions noted Psych mental status grossly normal Weight / BMI Weight Weight: 158 kg Body Mass Index (BMI) 54.5 ABG / Lab / Microbiology Data 03/03/25 04:41 03/04/25 09:35 Microbiology: Microbiology 03/02/25 23:05 Mucosa - Nasopharyngeal Respiratory Panel (PCR) - Final Radiography Diagnostic Testing: Radiology Impression Venous Doppler Study 03/03/25 00:31 Interpretation Summary Deep veins of the lower extremities are bilaterally patent and compressible segmentally. There is no evidence of deep vein thrombosis on either side. Valvular competence appears intact within the proximal deep venous systems bilaterally. The great saphenous veins appear bilaterally patent and compressible segmentally. Ordering Physician: Thierno Campos Referring Physician: MD Eduard Wells Performed By: Danilo Crystal RVT D/C Instructions DC O2, CPAP, BIPAP Needs Home O2 Discharge instructions: No Meaningful Use Info Meaningful Use Meaningful Use Diagnoses (Choose all that apply): CHF CHF DEEJAY/ARB ordered at discharge?: Yes Documented LVEF (%): 70 Ischemic Stroke Statin Dosing Therapy Reference: STATIN DOSE THERAPY REFERENCE: * Patients > 75 years receive moderate or high dose statin therapy. * Patients 75 years or YOUNGER should receive HIGH intensity statin dose unless contraindicated. You will be required to document reason for non-treatment if statin daily dose does not meet guidelines. HIGH DOSE STATIN THERAPY DAILY Atorvastatin > than or = to 40 mg Rosuvastatin > than or = to 20 mg Amlodipine + Atorvastatin > than or = to 2.5/40 mg Ezetimibe + Simvastatin 10/80 mg Simvastatin 80mg Discharge Plan Admission Admit Date/Time: 03/02/25 22:46 Primary Reason for Your Visit: Shortness of breath Attending Provider: Jostin Arriaza Primary Care Provider: Eduard Wells Consulting Providers: Thierno Campos; Eduard Florian Instructions Additional Instructions / Restrictions: Please take medications as noted below. Importantly, take Eliquis twice daily for your A-fib and decrease dose of aspirin to 81 mg daily (baby aspirin). Take Lasix up to once daily as needed. Follow-up in the cardiology office in the next few weeks. Discharge Orders/Prescriptions Prescriptions: New atenolol 100 mg Tablet 100 mg PO DAILY 30 Days Qty: 30 2RF aspirin 81 mg Tablet,Chewable 81 mg PO DAILY@0800 30 Days Qty: 30 2RF Eliquis 5 mg Tablet 5 mg PO BID 30 Days Qty: 60 2RF furosemide [Lasix] 20 mg tablet 20 mg PO DAILY PRN (Reason: edema) Qty: 30 2RF Continued guanfacine 1 mg tablet 1 tablet PO QPM 30 Days Qty: 30 Patient Comments: escitalopram oxalate 20 MG tablet 20 mg PO DAILY minoxidil 10 MG tablet 20 mg PO DAILY Patient Comments: TAKE 2 TABLETS BY MOUTH ONCE DAILY Rx Instructions: nifedipine 30 mg tablet extended release 24hr 30 mg PO DAILY tamsulosin 0.4 mg capsule 0.4 mg PO QHS omeprazole 20 mg capsule,delayed release(DR/EC) 20 mg PO DAILY losartan 100 mg tablet 100 mg PO DAILY finasteride 5 mg tablet 5 mg PO QPM Discontinued atenolol-chlorthalidone 1 TAB tablet 1 tab PO DAILY Rx Instructions: aspirin 325 MG tablet 325 mg PO DAILY@0800 ibuprofen 800 mg tablet 800 mg PO BID PRN PRN (Reason: fever or pain) Referrals / Follow Up: Sagrario Casanova MD [Med Staff - Active Staff] - Eduard Wells MD [Primary Care Provider] - Disposition Disposition (needs filled in before D/C Order can be placed): Home, Self Care Charges/Coding Visit Charges Inpatient E&M: 65332 Disch Hosp >30min
--- NOTE | 2025-03-05 15:07 | PHA.DC.MC.R ---
Pharmacy [facility] Pharmacy Service has performed discharge medication reconciliation and counseling for this patient. 1. Aspirin 81mg PO daily - stop aspirin 325mg 2. Atenolol 100mg PO daily - stop atenolol/chlorthalidone 3. Apixaban 5mg PO BID 4. Furosemide 20mg PO daily PRN edema The patient's discharge medication list was reviewed for discrepancies and discrepancies were resolved. The patient was counseled on the following discharge medications and changes in medications for homegoing were reviewed. The Reason for Use, instructions for use, and potential side effects were reviewed for all new medications. The patient's questions regarding all of their medications were answered. The patient was able to verbally demonstrate an understanding of their discharge medications. Patient counseled by pharmacy technician per diem, Omega. Medications at Discharge Home Medications guanfacine 1 mg tablet 1 tablet PO QPM BLOOD PRESSURE 30 days ##30 05/09/18 escitalopram oxalate 20 mg tablet 20 mg PO DAILY depression 01/29/19 minoxidil 10 mg tablet 20 mg PO DAILY HAIR GROWTH 09/26/19 finasteride 5 mg tablet 5 mg PO QPM 03/02/25 losartan 100 mg tablet 100 mg PO DAILY 03/02/25 nifedipine 30 mg tablet,extended release 24 hr 30 mg PO DAILY 03/02/25 omeprazole 20 mg capsule,delayed release 20 mg PO DAILY 03/02/25 tamsulosin 0.4 mg capsule 0.4 mg PO QHS 03/02/25 apixaban 5 mg tablet (Eliquis) 5 mg PO BID 30 days #60 tabs 03/05/25 aspirin 81 mg chewable tablet 81 mg PO DAILY@0800 30 days #30 tabs 03/05/25 atenolol 100 mg tablet 100 mg PO DAILY 30 days #30 tabs 03/05/25 furosemide 20 mg tablet (Lasix) 20 mg PO DAILY PRN edema #30 tabs 03/05/25
--- NOTE | 2025-03-05 15:27 | CASEMGMT ---
Patient has order for discharge. Patient is discharging on KEVIN Richards CM called [facility], copay is $10. KEVIN CM in to discuss needs at discharge and updated regarding Susie dotyay, in room and states she setup savings card online. Patient did not qualified for home oxygen. Patient denies further needs or concerns at discharge. Patient had no further questions or concerns.
== END 2025-03-05 16:02 | disposition home or self-care (01) | DRG 291 ==
LOC: ED 22:04 → PCU 22:52
PROVIDERS: Internal Medicine; Admitting Provider Internal Medicine; Emergency Provider Emergency Medicine; PCP Family Medicine; Visit Provider Hospitalist
DX: I11.0 Hypertensive heart disease with heart failure (principal); I50.31 Acute diastolic (congestive) heart failure; E66.2 Morbid (severe) obesity with alveolar hypoventilation; Z68.43 Body mass index [BMI] 50.0-59.9, adult; L03.311 Cellulitis of abdominal wall; F32.A Depression, unspecified; I48.91 Unspecified atrial fibrillation; I89.0 Lymphedema, not elsewhere classified; K21.9 Gastro-esophageal reflux disease without esophagitis; F41.9 Anxiety disorder, unspecified; R73.9 Hyperglycemia, unspecified; N40.0 Benign prostatic hyperplasia without lower urinary tract symptoms; Z79.899 Other long term (current) drug therapy
CPT/HCPCS: 36415; 36600; 71045; 71275; 73701; 80048; 80053; 80061; 81001; 82607; 82746; 82803; 83036; 83735; 83880; 84100; 84443; 85025; 85379; 85652; 86140; 87633; 93005; 93306; 93970; 94640; 94668; 94760; 97110; 97116; 97162; 97530; 99284; Q9957; Q9967; A4216; C8929; J1940

== ENCOUNTER 2025-03-18 19:18 | Inpatient (IN) | payer OTHER, SELFPAY ==
[2025-03-18] VITALS (12 sets, daily range): BP systolic 151–194; BP diastolic 83–105; PULSE 81–93; RESP 18–33; TEMP 36.7–37.1; O2SAT 87–97; BMI 55.6; BMI 54.8
--- NOTE | 2025-03-18 19:45 | EKG12_ITS ---
Test Reason : SOB Blood Pressure : */* mmHG Vent. Rate : 88 BPM Atrial Rate : * BPM P-R Int : * ms QRS Dur : 88 ms QT Int : 374 ms P-R-T Axes : * 5 77 degrees QTcB Int : 452 ms Atrial fibrillation Low voltage QRS Abnormal ECG Confirmed by Jesse Sosa ([id number]), assignment editor KARENA RIZO ([id number]) on 03/19/2025 9:25:10 AM Referred By: DC Confirmed By: Jesse Sosa
[2025-03-18 19:58] LABS: Absolute Lymphocyte Count 1.33 X10^3/uL (0.83-4.51); Absolute Neutrophil Count 4.5 X10^3/uL (2.0-7.7); Basophil# 0.04 X10^3/uL; Basophil% 0.6 % (0-1); Eosinophil# 0.08 X10^3/uL; Eosinophils% 1.3 % (0-5); Hematocrit 41.6 % (40-54); Hemoglobin 13.4 g/dL (13.0-16.5); Lymphocyte # 1.33 X10^3/ul (0.83-4.51); Lymphocyte % 20.9 % (19-41); Mean Corp Hgb Conc 32.2 g/dL (32-36); Mean Corpuscular Hgb 29.2 pg (27.0-32.0); Mean Corpuscular Volume 90.6 fL (80-94); Mean Platelet Vol. 10.7 fl (6.2-12.0); Monocyte# 0.39 X10^3/uL; Monocyte% 6.1 % (0-10); NRBC Flagged by Analyzer 0 % (0-5); Neutrophil % 70.9 % (47-70); Platelet Count 246 K/mm3 (150-450); RBC Distribution Width CV 14.2 % (11.6-14.6); RBC Distribution Width SD 46.6 fl (35.1-43.9); Red Blood Count 4.59 M/mm3 (4.6-6.2); White Blood Count 6.4 K/mm3 (4.4-11.0)
--- NOTE | 2025-03-18 20:00 | RAD_ITS ---
PROCEDURE: CHEST 1 VIEW (PORTABLE) 03/18/2025 REASON FOR EXAM: DYSPNEA, EDEMA TECHNIQUE: Frontal view of the chest. COMPARISON: CT chest 03/02/2025 FINDINGS: Hardware: None Heart: Heart size is moderately enlarged. Lungs: Stable bilateral perihilar prominence. Linear opacity right lower lobe, likely secondary to subsegmental atelectasis. Bibasilar atelectasis. No pneumothorax. No pleural effusion. Bones: The bones are unremarkable. Other: RAD/Chest 1 View (Portable) IMPRESSION: Findings suggestive of vascular congestion. Reading Location: [facility]
[2025-03-18 20:32] LABS: Pro- Brain NATRIURETIC PEPTIDE 1362 pg/mL (<=900); Troponin T High Sensitivity 22 ng/L (<=22)
[2025-03-18 20:41] LABS: ALB/GLOB Ratio 1.3 RATIO (0.9-2.4); AST(SGOT) 52 U/L (<=37); Alanine Aminotransfer ALT/SGPT 30 U/L (<=46); Albumin, Serum 4.2 g/dL (3.5-5.0); Alkaline Phosphatase 57 U/L (40-129); Anion Gap 11 (5-15); BUN 13 mg/dL (4-19); BUN/Creat Ratio 9.6 RATIO (10-20); Calcium,Total 9.5 mg/dL (7.6-11.0); Carbon Dioxide 23.7 mmol/L (21.0-32.0); Chloride 104 mmol/L (98-108); Creatinine, Serum 1.33 mg/dL (0.70-1.20); EST Glomerular Filtration Rate 62 (>60); Globulin 3.4 g/dL (2.2-4.2); Glucose 111 mg/dL (70-99); Potassium 4.3 mmol/L (3.3-5.1); Protein, Total 7.6 g/dL (5.9-8.4); Sodium Level 139 mmol/L (133-145); Total Bilirubin 1.63 mg/dL (0.00-1.30)
[2025-03-18] MEDS: Furosemide 40 MG/4 ML Vial IV (20:57)
--- NOTE | 2025-03-18 21:07 | HP.PCM.HOS_ITS ---
[facility] - General General Date of Admission: 03/18/25 Date of Service: 03/18/25 Chief Complaint: SOB. HPI Narrative JOSÉ MIGUEL TRIMBLE, is a 59 M with a past medical history of essential hypertension; on atenolol-hydrochlorothiazide, nifedipine. 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; on minoxidil, GERD; on omeprazole, OA; with shoulder pain and recent admission here from March 02, 2025 to March 05, 2025 with CTA of the chest with IV contrast that revealed no evidence of pulmonary embolism but did show Cardiomegaly with Small Pericardial Effusion with a corresponding elevated NT pro-BNP II of 1,559 pg/mL present on admission consistent with suspected new- onset AE of CHF of uncertain type complicated by clinical evidence of Acute Respiratory Insufficiency in addition to laboratory evidence of Hyperglycemia of 163 mg/dL present on admission suspicious for DM-2 who now re-presents to [facility] ER complaining of SOB. Mr. Trimble reports his symptoms began approximately 1-2 days prior to admission with persistent shortness of breath. He states his symptoms are made worse with exertion with a respiratory rate of 33 breaths/min noted on admission patient requiring 3 LNC. His initial blood pressure was 194/104 mmHg present on admission consistent with Hypertensive Urgency with an NT pro-BNP of 1,362 pg/mL present on admission with CT scan of the chest revealing bilateral pleural effusions, mosaic attenuation, interlobular septal thickening and ground-glass opacities concerning for pulmonary edema with mild cardiomegaly and stable small pericardial effusion and findings suggestive of pulmonary hypertension in the setting of chronic obesity hypoventilation syndrome with the patient hypoxic at baseline and he was then admitted to the PCU under observation status for ongoing care for stay that is expected to be less than 2 midnights [facility] Medical History (Updated 03/19/25 @ 02:[address] Thierno Campos, DO) Obesity hypoventilation syndrome Lymphedema Morbid obesity Shoulder pain HTN (hypertension) Home Medications ?Medication ?Instructions ?Recorded ?Last Taken ?Type guanfacine 1 mg tablet 1 tablet PO QPM BLOOD PRESSU RE 30 05/09/18 03/01/25 History days ##30 minoxidil 10 mg tablet 20 mg PO DAILY HAIR GROWTH 1 11/26/18 03/02/25 History finasteride 5 mg tablet 5 mg PO QPM 03/02/25 5 History losartan 100 mg tablet 100 mg PO DAILY 03/02/25 History nifedipine 30 mg tablet,extended 30 mg PO DAILY 03/02/25 History release 24 hr omeprazole 20 mg capsule,delayed 20 mg PO DAILY 03/02/25 History release tamsulosin 0.4 mg capsule 0.4 mg PO QHS 03/02/2503/01 History apixaban 5 mg tablet (Eliquis) 5 mg PO BID 30 days #60 tabs 03/05/25 Unknown Rx aspirin 81 mg chewable tablet 81 mg PO DAILY@0800 30 d ays #30 03/05/25 Unknown Rx tabs atenolol 100 mg tablet 100 mg PO DAILY 30 days #30 tabs 03/05/25 Unknown Rx escitalopram oxalate 10 mg tablet 10 mg PO DAILY 03/18 Unknown History furosemide 20 mg tablet (Lasix) 20 mg PO .COMPLEX nirav a 03/18/25 Unknown History Allergy/AdvReac Type Severity Reaction Status Date / Time No Known Allergies Allergy Verified 03/02/25 19:10 Social History Smoking Status: Never smoker alcohol intake: never ROS ROS Narrative Review of Systems: Constitutional: Patient denies fever or chills. Eyes: Patient denies changes in vision or discharge from eyes. ENT: Patient denies runny nose, sore throat or ear pain. Resp: Patient admits to shortness of breath that is persistent. CV: Patient denies chest pain, palpitations or heart racing. GI: Patient denies abdominal pain, nausea, vomiting, diarrhea or constipation. : Patient denies dysuria or hematuria. MSK: Patient admits to generalized weakness due to shortness of breath. Skin: Patient denies rash, abscess, wounds or jaundice. Psych: Patient denies symptoms of uncontrolled depression or anxiety. Neuro: Patient denies headache, paresthesias or focal neurologic deficits. Allergy: Patient denies lip swelling, tongue swelling or urticaria. Hematology: Patient denies easy bleeding or easy bruisability. Endocrinology: Patient denies polyuria, polydipsia, polyphagia or heat/cold intolerance. 14 point ROS otherwise negative except for positives noted above in HPI. Vital Signs Vital Signs Vital Signs: 03/18/25 19:19 03/18/25 19:21 03/18/25 19:22 Temperature 98.2 F 98.2 F Temperature Source Oral Oral Pulse Rate 81 81 Respiratory Rate 28 H 28 H Respiratory Effort Respiratory Depth Respiratory Pattern Blood Pressure 194/104 H 194/104 H Blood Pressure Mean 134 134 Pulse Ox 87 87 95 Oxygen Delivery Method Room Air Room Air Nasal Cannula Oxygen Flow Rate (L/min) 2 03/18/25 19:30 03/18/25 19:30 03/18/25 19:31 Temperature Temperature Source Pulse Rate 87 Respiratory Rate 24 H 23 H Respiratory Effort Short of Breath Labored Respiratory Depth Respiratory Pattern Tachypnea Blood Pressure 161/96 H Blood Pressure Mean 117 Pulse Ox 87 94 Oxygen Delivery Method Nasal Cannula Nasal Cannula Oxygen Flow Rate (L/min) 2 2 03/18/25 19:45 03/18/25 19:48 03/18/25 20:11 Temperature Temperature Source Pulse Rate 84 Respiratory Rate 19 H Respiratory Effort Short of Breath Labored Respiratory Depth Deep Respiratory Pattern Tachypnea Blood Pressure Blood Pressure Mean Pulse Ox 90 Oxygen Delivery Method Nasal Cannula Nasal Cannula Oxygen Flow Rate (L/min) 2 3 03/18/25 20:11 03/18/25 20:21 03/18/25 21:00 Temperature 98.3 F 98.8 F Temperature Source Oral Oral Pulse Rate 87 93 Respiratory Rate 24 H 33 H Respiratory Effort Respiratory Depth Respiratory Pattern Blood Pressure 161/89 H 170/105 H Blood Pressure Mean 113 126 Pulse Ox 93 94 95 Oxygen Delivery Method Nasal Cannula Nasal Cannula Nasal Cannula Oxygen Flow Rate (L/min) 3 3 3 Weight Weight: 355 lb 7 oz Body Mass Index (BMI) 55.6 Physical Exam Const alert, oriented x3 and no apparent distress Constitutional Narrative: Patient is morbidly obese and chronically hypoxic. General Appearance: cooperative HEENT normocephalic, head/scalp atraumatic, hearing grossly normal bilaterally and moist oral mucous membranes Eyes PERRL, EOMs intact bilaterally and conjunctivae normal Neck no lymphadenopathy, supple and no JVD Resp Resp Narrative: Diminished breath sounds throughout. Cardio regular rate and regular rhythm GI normal to inspection, nondistended, normoactive bowel sounds, soft to palpation, non-tender and non-distended GI Narrative: Morbidly obese. Extremity Extremity Narrative: Patient has chronic lower extremity venous stasis. Skin Skin Narrative: Patient is no evidence of rash, abscess, wounds or jaundice. Neuro oriented x3, CN's II-XII intact bilaterally, moves all extremities and no focal motor deficits Sensorium / Orientation: awake, alert, oriented to person, oriented to place and oriented to time Speech: speech normal Psych affect normal Results Medical Records Data Attestation: I reviewed the patient's medical records Lab / Micro Data Attestation: I reviewed the patient's lab results. 03/19/25 05:03 03/18/25 19:36 Labs: Laboratory Results - last 24 hr 03/18/25 19:36: WBC 6.4, RBC 4.59 L, Hgb 13.4, Hct 41.6, MCV 90.6, MCH 29.2, MCHC 32.2, RDW Std Deviation 46.6 H, RDW Coeff of Bre 14.2, Plt Count 246, MPV 10.7, Immature Gran % (Auto) 0.200, Neut % (Auto) 70.9 H, Lymph % (Auto) 20.9, [place] % (Auto) 6.1, Eos % (Auto) 1.3, Baso % (Auto) 0.6, Absolute Neuts (auto) 4.5, Absolute Lymphs (auto) 1.33, Nucleated RBC % 0, Sodium 139, Potassium 4.3, Chloride 104, Carbon Dioxide 23.7, Anion Gap 11, BUN 13, Creatinine 1.33 H, Estim Creat Clear Calc 88.10, Est GFR (MDRD) Non-Af 62, BUN/Creatinine Ratio 9.6 L, Glucose 111 H, Calcium 9.5, Total Bilirubin 1.63 H, AST 52 H, ALT 30, Alkaline Phosphatase 57, Troponin T High Sens 22, NT pro BNP II 1362 H, Total Protein 7.6, Albumin 4.2, Globulin 3.4, Albumin/Globulin Ratio 1.3 Imaging Radiology Impression Chest X-Ray 03/18/25 20:00 IMPRESSION: Findings suggestive of vascular congestion. Reading Location: [facility] Imaging Services [address] [place] [id number] CTA Chest W/WO Contrast MR#: [id number] Acct: [id number] Name: JOSÉ MIGUEL TRIMBLE . Rep #: [id number] : 1965 M 59 From: Uriel Prabhakar MD PCP: Dr. Eduard eWlls MD Status: ADM [facility] Study: CTA Chest W/WO Contrast Date of Exam: 03/18/25 Exam# [id number] Ordering Dr: Thierno Campos DO PROCEDURE: CTA CHEST W/WO CONTRAST 03/18/2025 REASON FOR EXAM: SOB WITH ELEVATED D-DIMER. EVAL FOR PE. TECHNIQUE: CTA axial imaging of the chest with intravenous contrast. Multiplanar and multisequence images were obtained. PATIENT PREPARATION: Per protocol CONTRAST: Omnipaque 350 VOLUME: 100 mL Not Provided Gauge IV One or more dose reduction techniques were used (e.g., Automated exposure control, adjustment of the mA and/or kV according to patient size, use of iterative reconstruction technique). COMPARISON: CT chest 02/26/2020 FINDINGS: Hardware: None Lymph nodes: Multiple prominent-mildly enlarged lymph nodes. For example 15 mm left para-aortic node (series 2 image 169); 20 mm right hilar node (image 147) and 12 mm left hilar node (image 145). Heart: Mild cardiomegaly. Stable small pericardial effusion. Mild coronary artery calcifications. Thoracic Aorta: No thoracic aortic aneurysm or dissection. Pulmonary Vessels: Main pulmonary artery is enlarged, and measures 3.8 cm, likely secondary to pulmonary arterial hypertension. No evidence of acute pulmonary emboli through the major subsegmental branches. Most Proximal Level of Embolus (if embolus present): Absent Lungs and Airways: Central airways are patent without endobronchial lesions. Diffuse mosaic attenuation, throughout both mathew thoraces. Mild interlobular septal thickening. Increased small right and trace left pleural effusions with atelectasis. Additional scattered bilateral ground-glass opacities. Constellation of findings, concerning for pulmonary edema. No pneumothorax. Upper Abdomen: Right adrenal fat attenuation mass which measures 5.7 x 5.9 cm, compatible with an adrenal myelolipoma. Bones: Degenerative changes of the thoracic spine. CT/CTA Chest W/WO Contrast IMPRESSION: 1. Bilateral pleural effusions, mosaic attenuation, interlobular septal thickening and ground-glass opacities, concerning for pulmonary edema. 2. Mild cardiomegaly and stable small pericardial effusion. 3. Multiple prominent-mildly enlarged unchanged lymph nodes, which are likely reactive. 4. Findings suggestive of pulmonary hypertension. 5. Right adrenal myelolipoma. Reading Location: [facility] CC: Dr. Thierno Campos DO; Dr. Eduard Wells MD ~ Central Office Operator: Signed Assessment & Plan Assessment/Plan (1) Hypertensive urgency: (2) Diastolic CHF, acute on chronic: (3) Respiratory insufficiency: (4) Morbid obesity with BMI of 50.0-59.9, adult: (5) Obesity hypoventilation syndrome: (6) D-dimer, elevated: PLAN: Plan 1. Hypertensive Urgency; evidenced by blood pressure of 194/104 mmHg present on admission - Admit to PCU under observation status. Give hydralazine IV prn for systolic blood pressure > 160 mmHg. Patient was treated with Lasix by the ER physician with elevated creatinine of 1.33 mg/dL present on admission (up from his baseline of 1 mg/dL last admission a few days ago on 03/05/2025). Therefore, he was treated with IV albumin to prevent worsening of his renal function as he can likely not be diuresed further without inducing kidney failure. 2. AE of chronic diastolic CHF; with LVEF ~70% with stage I diastolic dysfunction and elevated Noted with NT pro-BNP II of 1,362 pg/mL present on admission complicating #1 - Patient treated with IV furosemide in the ER with additional treatment with IV albumin to prevent worsening renal function. Recheck CXR and NT pro-BNP in the AM to follow trend. 3. Jevse-xfveiv-neymgto; with BMI of 55.7 this admission with Obesity Hypoventilation Syndrome causing Acute Respiratory Insufficiency compounding #1 & #2 - Weight loss was recommended. This complicates his case and may hamper recovery. 4. Mildly elevated D-dimer of 0.73 present on admission with the patient already on NOAC adding to the medical complexity of #1 - #3 - Checked CT of chest with IV contrast to evaluate for possible PE with CT revealing no evidence of pulmonary embolism with bilateral pleural effusions, mosaic attenuation, interlobular septal thickening ground-glassy facies concerning for pulmonary edema with mild cardiomegaly and stable small pericardial effusion findings suggestive of pulmonary hypertension. 5. Recently diagnosed Atrial Fibrillation; on apixaban amplifying the pathology of #1 - #4 - Resume apixaban as before. 6. Essential hypertension; on atenolol-hydrochlorothiazide, nifedipine, losartan and guanfacine - Maintain home regimen plus give IV hydralazine as needed as outlined in #1. 7. Recent admission here from March 02, 2025 to March 05, 2025 with CTA of the chest with IV contrast that revealed no evidence of pulmonary embolism but did show Cardiomegaly with Small Pericardial Effusion with a corresponding elevated NT pro-BNP II of 1,559 pg/mL present on admission consistent with suspected new- onset AE of CHF of uncertain type complicated by clinical evidence of Acute Respiratory Insufficiency in addition to laboratory evidence of Hyperglycemia of 163 mg/dL present on admission suspicious for DM-2 - Noted. 8. Chronic lower extremity lymphedema - Stable. 9. History of muscle spasms; on orphenadrine - Current management to continue. 10. Depression with anxiety; on escitalopram and clonazepam - Maintain current therapy. 11. BPH; on finasteride and tamsulosin - Stable. 12. 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 13. GERD; on omeprazole - Resume PPI. 14. OA; with shoulder pain - Give acetaminophen prn for pain or fever. 15. DVT prophylaxis - Patient apixaban for #5. Total time: Approximately (but not less than) 70 minutes. Charges/Coding Visit Charges OBSV E&M: 80290 Observ/hosp same date L2
--- NOTE | 2025-03-18 21:14 | EX.ED.DYSGE1 ---
HPI History of Present Illness Chief Complaint: Shortness of Breath Informant: patient Onset/Context/Timing Onset: Days Context: Gradual Onset Timing: Continuous Worsened by: exertion Narrative Narrative: Patient presents for shortness of breath. Recent admission with an echocardiogram and he was told he had CHF. He takes Lasix every other day and has been compliant. He is also compliant with his anticoagulation which he started for atrial fibrillation. He is denying any chest pain, fever, GI symptoms. 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 Prior similar symptoms: Yes Recent Illness/Hospitalization: Yes [facility] Medical History Lymphedema Obesity hypoventilation syndrome Morbid obesity Shoulder pain HTN (hypertension) Home Medications ?Medication ?Instructions ?Recorded ?Last Taken ?Type guanfacine 1 mg tablet 1 tablet PO QPM BLOOD PRESSURE 30 05/09/18 03/01/25 History days ##30 minoxidil 10 mg tablet 20 mg PO DAILY HAIR GROWTH 09/26/19 03/02/25 History finasteride 5 mg tablet 5 mg PO QPM 03/02/25 03/01/25 History losartan 100 mg tablet 100 mg PO DAILY 03/02/25 03/02/25 History nifedipine 30 mg tablet,extended 30 mg PO DAILY 03/02/25 03/02/25 History release 24 hr omeprazole 20 mg capsule,delayed 20 mg PO DAILY 03/02/25 03/02/25 History release tamsulosin 0.4 mg capsule 0.4 mg PO QHS 03/02/25 03/01/25 History apixaban 5 mg tablet (Eliquis) 5 mg PO BID 30 days #60 tabs 03/05/25 Unknown Rx aspirin 81 mg chewable tablet 81 mg PO DAILY@0800 30 days #30 03/05/25 Unknown Rx tabs atenolol 100 mg tablet 100 mg PO DAILY 30 days #30 tabs 03/05/25 Unknown Rx escitalopram oxalate 10 mg tablet 10 mg PO DAILY 03/18/25 Unknown History furosemide 20 mg tablet (Lasix) 20 mg PO .COMPLEX edema 03/18/25 Unknown History Allergy/AdvReac Type Severity Reaction Status Date / Time No Known Allergies Allergy Verified 03/02/25 19:10 Social History Smoking Status: Never smoker alcohol intake: never ROS ROS ED Constitutional Constitutional ED: Denies chills or fever(s) Eyes Eyes: Denies change in vision ENT ENT ED: Denies rhinorrhea or sore throat Cardiovascular Cardiovascular: Denies chest pain, orthopnea, palpitations, paroxysmal nocturnal dyspnea or racing heartbeat Respiratory/Chest Respiratory/Chest: Reports cough, dyspnea and dyspnea on exertion; Denies orthopnea, paroxysmal nocturnal dyspnea or sputum Gastrointestinal Gastrointestinal: Denies abdominal pain, nausea or vomiting Integumentary Denies rash Neurologic Neurologic: Denies headache(s), paresthesias or weakness Hematologic/Lymphatic Hematologic/Lymphatic: Denies easy bruising EXAM Physical Exam Const Vital Signs: 03/18/25 19:19 03/18/25 19:21 03/18/25 19:22 Temperature 98.2 F 98.2 F Temperature Source Oral Oral Pulse Rate 81 81 Respiratory Rate 28 H 28 H Respiratory Effort Respiratory Depth Respiratory Pattern Blood Pressure 194/104 H 194/104 H Blood Pressure Mean 134 134 Pulse Ox 87 87 95 Oxygen Delivery Method Room Air Room Air Nasal Cannula Oxygen Flow Rate (L/min) 2 03/18/25 19:30 03/18/25 19:30 03/18/25 19:31 Temperature Temperature Source Pulse Rate 87 Respiratory Rate 24 H 23 H Respiratory Effort Short of Breath Labored Respiratory Depth Respiratory Pattern Tachypnea Blood Pressure 161/96 H Blood Pressure Mean 117 Pulse Ox 87 94 Oxygen Delivery Method Nasal Cannula Nasal Cannula Oxygen Flow Rate (L/min) 2 2 03/18/25 19:45 03/18/25 19:48 03/18/25 20:11 Temperature Temperature Source Pulse Rate 84 Respiratory Rate 19 H Respiratory Effort Short of Breath Labored Respiratory Depth Deep Respiratory Pattern Tachypnea Blood Pressure Blood Pressure Mean Pulse Ox 90 Oxygen Delivery Method Nasal Cannula Nasal Cannula Oxygen Flow Rate (L/min) 2 3 03/18/25 20:11 03/18/25 20:21 03/18/25 21:00 Temperature 98.3 F 98.8 F Temperature Source Oral Oral Pulse Rate 87 93 Respiratory Rate 24 H 33 H Respiratory Effort Respiratory Depth Respiratory Pattern Blood Pressure 161/89 H 170/105 H Blood Pressure Mean 113 126 Pulse Ox 93 94 95 Oxygen Delivery Method Nasal Cannula Nasal Cannula Nasal Cannula Oxygen Flow Rate (L/min) 3 3 3 Positive well nourished, well developed and obese General Appearance ED: well developed Nutritional Appearance: obese HEENT Reports moist mucous membranes Negative for trauma Eyes Negative for PERRL or EOMs intact bilaterally Chest Wall inspection of chest normal and palpation of chest normal Resp normal respiratory effort and clear to auscultation bilaterally Cardio regular rate; Negative for regular rhythm GI normal to inspection, nondistended, normoactive bowel sounds Extremity General Extremety ED: Yes edema General Extremity: edema Neuro oriented x3 and CN's II-XII intact bilaterally Sensorium / Orientation: alert Psych mental status grossly normal Skin no rashes or lesions noted and no wounds MDM MDM MDM Narrative Medical decision making narrative: Patient had an EKG that I interpreted. It showed atrial fibrillation with no evidence of ischemia or infarction pattern. He was placed on the monitor. He was found to be hypoxic in the upper 80s on room air and required 2 L nasal cannula. Everything sounded more like cardiac, heart failure. He did not have infectious symptoms and did not have chest pain. He is compliant with his Eliquis so PE was felt to be unlikely. Patient later required 3 L of nasal cannula. This is new for him. His workup looked pretty good. Troponin was normal. BNP is elevated but stable. Chest x-ray was reviewed by me and the radiologist. Showed pulmonary edema pattern. Patient was treated with a dose of Lasix here. He is taking Lasix every other day and I believe he needs more aggressive diuresis. However his creatinine is starting to elevate. It is 1.3 here today which was elevated from his baseline. I suspect this will continue to rise with further treatment. He is requiring oxygen and will need close monitoring. I contacted the hospitalist to admit for further care. Patient will be admitted for observation to PCU. Impression #1 CHF Impression #2 hypoxic respiratory failure Impression #3 elevated creatinine Lab Data Labs: Laboratory Results - last 24 hr 03/18/25 19:36 WBC 6.4 RBC 4.59 L Hgb 13.4 Hct 41.6 MCV 90.6 MCH 29.2 MCHC 32.2 RDW Std Deviation 46.6 H RDW Coeff of Bre 14.2 Plt Count 246 MPV 10.7 Immature Gran % (Auto) 0.200 Neut % (Auto) 70.9 H Lymph % (Auto) 20.9 [place] % (Auto) 6.1 Eos % (Auto) 1.3 Baso % (Auto) 0.6 Absolute Neuts (auto) 4.5 Absolute Lymphs (auto) 1.33 Nucleated RBC % 0 Sodium 139 Potassium 4.3 Chloride 104 Carbon Dioxide 23.7 Anion Gap 11 BUN 13 Creatinine 1.33 H Estim Creat Clear Calc 88.10 Est GFR (MDRD) Non-Af 62 BUN/Creatinine Ratio 9.6 L Glucose 111 H Calcium 9.5 Total Bilirubin 1.63 H AST 52 H ALT 30 Alkaline Phosphatase 57 Troponin T High Sens 22 NT pro BNP II 1362 H Total Protein 7.6 Albumin 4.2 Globulin 3.4 Albumin/Globulin Ratio 1.3 Radiography Chest X-Ray - ED: 1 View, Read by ED Physician, Read by Radiologist and Lungs (pulmonary edema) Diagnostic Testing: Clinical Impression(s) from Imaging Studies Chest X-Ray 03/18/25 20:00 IMPRESSION: Findings suggestive of vascular congestion. [facility] Management Discussion w/another healthcare provider: Hospitalist Critical Care Time Critical Care Time: Yes Critical care time (excluding procedures): 30-74 minutes, Including time spent:, Discussing w/Patient &/or Family/Senior Hr Manager, Arranging Admission or Transfer and Performing Direct Patient Care at Bedside Discharge Plan Triage Chief Complaint: Shortness of Breath ED Provider: Lyle Moise Dx/Rx/DC Orders Prescriptions: No Action guanfacine 1 mg tablet 1 tablet PO QPM 30 Days Qty: 30 Patient Comments: minoxidil 10 MG tablet 20 mg PO DAILY Patient Comments: TAKE 2 TABLETS BY MOUTH ONCE DAILY Rx Instructions: escitalopram oxalate 10 mg tablet 10 mg PO DAILY furosemide [Lasix] 20 mg tablet 20 mg PO .COMPLEX Rx Instructions: 20 mg orally every other day; nifedipine 30 mg tablet extended release 24hr 30 mg PO DAILY tamsulosin 0.4 mg capsule 0.4 mg PO QHS omeprazole 20 mg capsule,delayed release(DR/EC) 20 mg PO DAILY losartan 100 mg tablet 100 mg PO DAILY finasteride 5 mg tablet 5 mg PO QPM atenolol 100 mg Tablet 100 mg PO DAILY 30 Days Qty: 30 2RF aspirin 81 mg Tablet,Chewable 81 mg PO DAILY@0800 30 Days Qty: 30 2RF Eliquis 5 mg Tablet 5 mg PO BID 30 Days Qty: 60 2RF Primary Care Provider: Eduard Wells Referrals: Eduard Wells MD [Primary Care Provider] - Print Language: [place]
[2025-03-18 21:45] LABS: Blood Gas Specimen Type VEN; O2 Delivery Device Not entered; SITE Not entered; VBG BASE EXCESS 7 mmol/L (-1.0-3.5); VBG Bicarbonate 32 mmol/L (22-26); VBG PO2 33 mmHg (25-40); VBG SO2 64 % (50-70); VBG TCO2 33 mmol/L (23-33); VBG pCO2 47.1 mmHg (41-51); VBG pH 7.44 (7.32-7.42)
[2025-03-18 21:50] LABS: D-Dimer Quantitative (DVT/PE) 0.73 FEU/ug/m (0.27-0.49)
[2025-03-18 21:51] LABS: Magnesium 2.1 mg/dL (1.5-2.2); Phosphorus 2.7 mg/dL (2.7-4.5)
[2025-03-18 22:05] LABS: Troponin T High Sens 2 HR 19 ng/L (<=22)
--- NOTE | 2025-03-18 22:27 | CT_ITS ---
PROCEDURE: CTA CHEST W/WO CONTRAST 03/18/2025 REASON FOR EXAM: SOB WITH ELEVATED D-DIMER. EVAL FOR PE. TECHNIQUE: CTA axial imaging of the chest with intravenous contrast. Multiplanar and multisequence images were obtained. PATIENT PREPARATION: Per protocol CONTRAST: Omnipaque 350 VOLUME: 100 mL Not Provided Gauge IV One or more dose reduction techniques were used (e.g., Automated exposure control, adjustment of the mA and/or kV according to patient size, use of iterative reconstruction technique). COMPARISON: CT chest 02/26/2020 FINDINGS: Hardware: None Lymph nodes: Multiple prominent-mildly enlarged lymph nodes. For example 15 mm left para-aortic node (series 2 image 169); 20 mm right hilar node (image 147) and 12 mm left hilar node (image 145). Heart: Mild cardiomegaly. Stable small pericardial effusion. Mild coronary artery calcifications. Thoracic Aorta: No thoracic aortic aneurysm or dissection. Pulmonary Vessels: Main pulmonary artery is enlarged, and measures 3.8 cm, likely secondary to pulmonary arterial hypertension. No evidence of acute pulmonary emboli through the major subsegmental branches. Most Proximal Level of Embolus (if embolus present): Absent Lungs and Airways: Central airways are patent without endobronchial lesions. Diffuse mosaic attenuation, throughout both mathew thoraces. Mild interlobular septal thickening. Increased small right and trace left pleural effusions with atelectasis. Additional scattered bilateral ground-glass opacities. Constellation of findings, concerning for pulmonary edema. No pneumothorax. Upper Abdomen: Right adrenal fat attenuation mass which measures 5.7 x 5.9 cm, compatible with an adrenal myelolipoma. Bones: Degenerative changes of the thoracic spine. CT/CTA Chest W/WO Contrast IMPRESSION: 1. Bilateral pleural effusions, mosaic attenuation, interlobular septal thicken ing and ground-glass opacities, concerning for pulmonary edema. 2. Mild cardiomegaly and stable small pericardial effusion. 3. Multiple prominent-mildly enlarged unchanged lymph nodes, which are likely r eactive. 4. Findings suggestive of pulmonary hypertension. 5. Right adrenal myelolipoma. Reading Location: [facility]
[2025-03-18] MEDS: Acetaminophen 325 MG Tablet 650 MG PO (22:58)
[2025-03-18] MEDS: MELATONIN 3 MG TABLET PO (22:59)
[2025-03-18] MEDS: Enoxaparin 40 MG/0.4 ML Syringe SC (22:59)
[2025-03-18] MEDS: hydrALAZINE 20 MG/ML Vial 10 MG IV (22:59)
[2025-03-18] MEDS: Albumin Human 25% (100 mL) 25 GM/100 ML BAG IV (23:00)
[2025-03-18] MEDS: 0.9% Saline Lock 10 ML Syringe IV (23:00)
[2025-03-18 23:30] LABS: Mucous, Urine 0 SEEN /hpf (<or=2+); Red Blood Cells-Urine 0 SEEN /hpf (0-5); White Blood Cells 0 SEEN /hpf (0-5)
[2025-03-18 23:34] LABS: Color, Urine Yellow (Yellow); Glucose, Dipstick Normal (Normal); Ketone-Dipstick Negative (Negative); Leukocyte Esterase-Dipstick Negative /ul (Negative); Nitrite-Dipstick Negative (Negative); Occult Blood-Urine Negative /ul (Negative); Protein-Dipstick 15 mg/dl (Negative); Specific Gravity, Urine 1.005 (1.002-1.030); Urine Bilirubin Dipstick Negative (Negative); Urine Clarity Clear (Clear); Urine Urobilinogen Normal (Normal)
[2025-03-18 23:41] LABS: Bacteria 1+ /hpf (None Seen); Squamous Epithelial Cells - UA 0-5 SEEN /hpf (0-5)
[2025-03-19] VITALS (9 sets, daily range): BP systolic 114–172; BP diastolic 67–106; PULSE 72–85; RESP 18; TEMP 36.4–36.8; O2SAT 93–98; BMI 53.9
[2025-03-19 00:19] LABS: Troponin T High Sens 4 HR 23 ng/L (<=22)
[2025-03-19 05:35] LABS: Absolute Lymphocyte Count 1.25 X10^3/uL (0.83-4.51); Absolute Neutrophil Count 4.2 X10^3/uL (2.0-7.7); Basophil# 0.03 X10^3/uL; Basophil% 0.5 % (0-1); Eosinophil# 0.05 X10^3/uL; Eosinophils% 0.8 % (0-5); Hematocrit 38.3 % (40-54); Hemoglobin 12.3 g/dL (13.0-16.5); Lymphocyte # 1.25 X10^3/ul (0.83-4.51); Lymphocyte % 20.9 % (19-41); Mean Corp Hgb Conc 32.1 g/dL (32-36); Mean Corpuscular Hgb 28.4 pg (27.0-32.0); Mean Corpuscular Volume 88.5 fL (80-94); Mean Platelet Vol. 10.3 fl (6.2-12.0); Monocyte% 6.7 % (0-10); NRBC Flagged by Analyzer 0 % (0-5); Neutrophil # 4.23 X10^3/uL (2.7-7.7); Neutrophil % 70.8 % (47-70); Platelet Count 220 K/mm3 (150-450); RBC Distribution Width SD 45.2 fl (35.1-43.9); Red Blood Count 4.33 M/mm3 (4.6-6.2)
--- NOTE | 2025-03-19 05:50 | RAD_ITS ---
PROCEDURE: CHEST 1 VIEW (PORTABLE) 03/19/2025 REASON FOR EXAM: AE CHF TECHNIQUE: Frontal view of the chest. 2 images to include the entire chest COMPARISON: 03/18/2025 FINDINGS: No significant interval change in appearance of mild patchy perihilar lower zone predominant ill-defined opacity which may represent mild edema. Cardiac silhouette is again enlarged for technique. 2 cm sclerotic focus at the proximal right humerus, correlate with history. RAD/Chest 1 View (Portable) IMPRESSION: No significant interval change in appearance of mild patchy perihilar lower zon e predominant ill-defined opacity which may represent mild edema. Cardiac silhouette is again enlarged for technique. Reading Location: [id number]
[2025-03-19 06:38] LABS: ALB/GLOB Ratio 1.4 RATIO (0.9-2.4); AST(SGOT) 43 U/L (<=37); Alanine Aminotransfer ALT/SGPT 26 U/L (<=46); Albumin, Serum 4.2 g/dL (3.5-5.0); Alkaline Phosphatase 54 U/L (40-129); Anion Gap 13 (5-15); BUN 15 mg/dL (4-19); BUN/Creat Ratio 13.5 RATIO (10-20); Calcium,Total 9.4 mg/dL (7.6-11.0); Carbon Dioxide 23.8 mmol/L (21.0-32.0); Chloride 101 mmol/L (98-108); Creatinine, Serum 1.14 mg/dL (0.70-1.20); EST Glomerular Filtration Rate 74 (>60); Globulin 3.1 g/dL (2.2-4.2); Glucose 126 mg/dL (70-99); Potassium 3.7 mmol/L (3.3-5.1); Pro- Brain NATRIURETIC PEPTIDE 1747 pg/mL (<=900); Protein, Total 7.4 g/dL (5.9-8.4); Sodium Level 138 mmol/L (133-145); Total Bilirubin 1.74 mg/dL (0.00-1.30)
--- NOTE | 2025-03-19 07:57 | PCM.PN.HOSP ---
Reason for Visit Reason for Visit: Diagnoses Morbid (severe) obesity due to excess calories (03/18/25) Morbid (severe) obesity with alveolar hypoventilation (03/18/25) Hypertensive urgency (03/18/25) Acute on chronic diastolic (congestive) heart failure (03/18/25) Dyspnea, unspecified (03/18/25) Other abnormalities of breathing (03/18/25) Other specified abnormal findings of blood chemistry (03/18/25) Body mass index [BMI] 50.0-59.9, adult (03/18/25) Subjective Subjective Breathing better. Has been chronically having LE edema. Objective Data Objective Data Vital Signs: Vital Signs Temp Pulse Resp BP Pulse Ox O2 Del Method O2 Flow Rate 36.7 C 80 18 148/98 H 97 Nasal Cannula 4 03/19/25 06:15 03/19/25 06:15 03/19/25 06:15 03/19/25 06:15 03/19/25 06:15 03/19/25 06:19 03/19/25 06:19 Oxygen Flow Rate (L/min) 4 Oxygen Delivery Method Nasal Cannula Weight: 156.2 kg Body Mass Index (BMI) 53.9 Intake & Output: Intake and Output for Last 24 Hours 03/17/25 03/18/25 03/19/25 23:59 23:59 23:59 Intake Total 200 / 200 200 / 200 Output Total 740 / 740 325 / 325 Balance -540 / -540 -125 / -125 Lab / Micro Data 03/19/25 05:03 03/19/25 05:03 Labs: Laboratory Results - last 24 hr 03/18/25 19:36: WBC 6.4, RBC 4.59 L, Hgb 13.4, Hct 41.6, MCV 90.6, MCH 29.2, MCHC 32.2, RDW Std Deviation 46.6 H, RDW Coeff of Bre 14.2, Plt Count 246, MPV 10.7, Immature Gran % (Auto) 0.200, Neut % (Auto) 70.9 H, Lymph % (Auto) 20.9, [place] % (Auto) 6.1, Eos % (Auto) 1.3, Baso % (Auto) 0.6, Absolute Neuts (auto) 4.5, Absolute Lymphs (auto) 1.33, Nucleated RBC % 0, D-Dimer Quant (PE/DVT) 0.73 H*, Sodium 139, Potassium 4.3, Chloride 104, Carbon Dioxide 23.7, Anion Gap 11, BUN 13, Creatinine 1.33 H, Estim Creat Clear Calc 88.10, Est GFR (MDRD) Non-Af 62, BUN/Creatinine Ratio 9.6 L, Glucose 111 H, Calcium 9.5, Phosphorus 2.7, Magnesium 2.1, Total Bilirubin 1.63 H, AST 52 H, ALT 30, Alkaline Phosphatase 57, Troponin T High Sens 22, NT pro BNP II 1362 H, Total Protein 7.6, Albumin 4.2, Globulin 3.4, Albumin/Globulin Ratio 1.3 03/18/25 21:37: Troponin T Hi Sens 2 Hr 19 03/18/25 23:20: Urine Color Yellow, Urine Clarity Clear, Urine pH 7.0, Ur Specific [place] 1.005, Urine Protein 15 H, Urine Glucose (UA) Normal, Urine Ketones Negative, Urine Occult Blood Negative, Urine Nitrite Negative, Urine Bilirubin Negative, Urine Urobilinogen Normal, Ur Leukocyte Esterase Negative, Urine RBC 0 SEEN, Urine WBC 0 SEEN, Ur Squamous Epith Cells 0-5 SEEN, Urine Bacteria 1+, Urine Mucus 0 SEEN 03/18/25 23:52: Troponin T Hi Sens 4Hr 23 H 03/19/25 05:03: WBC 6.0, RBC 4.33 L, Hgb 12.3 L, Hct 38.3 L, MCV 88.5, MCH 28.4, MCHC 32.1, RDW Std Deviation 45.2 H, RDW Coeff of Bre 14.0, Plt Count 220, MPV 10.3, Immature Gran % (Auto) 0.300, Neut % (Auto) 70.8 H, Lymph % (Auto) 20.9, [place] % (Auto) 6.7, Eos % (Auto) 0.8, Baso % (Auto) 0.5, Absolute Neuts (auto) 4.2, Absolute Lymphs (auto) 1.25, Nucleated RBC % 0, Sodium 138, Potassium 3.7, Chloride 101, Carbon Dioxide 23.8, Anion Gap 13, BUN 15, Creatinine 1.14, Estim Creat Clear Calc 100.80, Est GFR (MDRD) Non-Af 74, BUN/Creatinine Ratio 13.5, Glucose 126 H, Calcium 9.4, Total Bilirubin 1.74 H, AST 43 H, ALT 26, Alkaline Phosphatase 54, NT pro BNP II 1747 H, Total Protein 7.4, Albumin 4.2, Globulin 3.1, Albumin/Globulin Ratio 1.4 ABG Data ABG results: ABG 03/18/25 21:43 Specimen Type CANDICE Sample Site Not entered VBG pH 7.44 H VBG pO2 33 VBG HCO3 32 H VBG Total CO2 33 VBG O2 Sat (Calc) 64 VBG Base Excess 7 H POC Mix VBG pCO2 Pt Tmp 47.1 O2 Delivery Device Not entered Radiography Diagnostic Testing: Radiology Impression Chest X-Ray 03/18/25 20:00 IMPRESSION: Findings suggestive of vascular congestion. Reading Location: [facility] Chest CTA 03/18/25 22:27 IMPRESSION: 1. Bilateral pleural effusions, mosaic attenuation, interlobular septal thickening and ground-glass opacities, concerning for pulmonary edema. 2. Mild cardiomegaly and stable small pericardial effusion. 3. Multiple prominent-mildly enlarged unchanged lymph nodes, which are likely reactive. 4. Findings suggestive of pulmonary hypertension. 5. Right adrenal myelolipoma. Reading Location: [facility] Chest X-Ray 03/19/25 05:50 IMPRESSION: No significant interval change in appearance of mild patchy perihilar lower zone predominant ill-defined opacity which may represent mild edema. Cardiac silhouette is again enlarged for technique. Reading Location: [id number] Physical Exam Const alert and no apparent distress HEENT head/scalp atraumatic and moist oral mucous membranes Resp normal respiratory effort, no retractions, no use of accessory muscles and clear to auscultation bilaterally Cardio regular rate, regular rhythm, S1 normal heart sound and S2 normal heart sound GI normal to inspection, nondistended, normoactive bowel sounds, soft to palpation and non-tender Extremity General Extremity: edema bilateral lower extremity Details: moderate Neuro Sensorium / Orientation: awake and alert Assessment & Plan Assessment/Plan (1) Hypertensive urgency: PLAN: Improved, may have been exacerbated by acute CHF Continue atenolol 100/d, losartan 100/d, minoxidil 20/d, nifedipine 30/d (2) (HFpEF) heart failure with preserved ejection fraction: PLAN: acute exacerbation personally reviewed CT images and has GGO. His pleural effusion look more pronounced than it did last month. Change furosemide to 40 IV BID. echo shows an EF 70% w stage I DD. Trivial to small pericardial effusion. Continue with IV furosemide Creatinine down slightly. PLAN: Plan Chronic conditions: obesity class III: complicates care and recovery BPH: tamsulosin Depression: continue SSRI Afib: continue atenolol and apixaban VTE prophylaxis: not indicated as already anticoagulated. Greater than 50 minutes of which greater than 50% of the time was counseling the patient and his spouse about CHF, dry weight, kidney disease Charges/Coding Visit Charges Inpatient E&M: 67274 [facility] Hosp L3
[2025-03-19 08:41] LABS: Blood Gas Specimen Type VEN; O2 Delivery Device Not entered; SITE Not entered; VBG BASE EXCESS 9 mmol/L (-1.0-3.5); VBG Bicarbonate 35 mmol/L (22-26); VBG PO2 105 mmHg (25-40); VBG SO2 98 % (50-70); VBG TCO2 36 mmol/L (23-33); VBG pCO2 62.4 mmHg (41-51); VBG pH 7.35 (7.32-7.42)
[2025-03-19] MEDS: Losartan Potassium 100 MG Tablet PO (10:07)
[2025-03-19] MEDS: Pantoprazole Sodium 20 MG Tablet PO (10:07)
[2025-03-19] MEDS: APIXABAN 5 MG TABLET PO ×2 (10:07→20:07)
[2025-03-19] MEDS: Aspirin 81 MG TAB.CHEW PO (10:07)
[2025-03-19] MEDS: Escitalopram Oxalate 10 MG Tablet PO (10:07)
[2025-03-19] MEDS: Minoxidil 10 MG Tablet 20 MG PO (10:08)
[2025-03-19] MEDS: NIFEdipine 30 MG Tablet PO (10:08)
[2025-03-19] MEDS: Atenolol 100 MG Tablet PO (10:08)
[2025-03-19] MEDS: 0.9% Saline Lock 10 ML Syringe IV ×3 (10:09→20:07)
[2025-03-19] MEDS: Furosemide 40 MG/4 ML Vial IV ×2 (10:09→18:28)
[2025-03-19] MEDS: Acetaminophen 325 MG Tablet 650 MG PO ×2 (12:48→20:06)
--- NOTE | 2025-03-19 16:19 | CHAPLAIN ---
Type of Pastoral Visit _x__ Initial Visit ___ Follow-up Visit ___ On-call Visit ___ General Patient Visit ___ Spiritual Assessment ___ Family Conference ___ Bereavement ___ Rapid Response ___ Code Blue ___ Other (describe below) Pastoral Care Referral From _x__ Patient ___ Family ___ Nurse ___ Physician ___ Resident Care Aide ___ Anatomical Embalmer ___ Other (describe below) Sacrament/Intervention _x__ Active listening ___ Anointing ___ Voodoo ___ Bereavement ___ Communion ___ Arina exploration ___ ___ Life review ___ Prayer ___ Reconciliation ___ Sacrament of Sick _x__ Supportive presence ___ Wedding ___ Other (describe below) Pastoral Comments patient has several family members in the room; pt says that he is a little bit better today but that he was having swollen legs and difficulty; 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
[2025-03-19] MEDS: Tamsulosin HCl 0.4 MG Capsule PO (20:07)
[2025-03-19] MEDS: GUANFACINE HCL 1 MG TAB.ER.24H PO (20:07)
[2025-03-19] MEDS: Finasteride 5 MG Tablet PO (20:07)
[2025-03-19 22:08] LABS: Phosphorus 3.2 mg/dL (2.7-4.5)
[2025-03-20 03:30] VITALS: BP 142/93; PULSE 78; RESP 17; TEMP 36.4; O2SAT 94
[2025-03-20 06:00] VITALS: BMI 53.8
[2025-03-20 06:31] LABS: Anion Gap 14 (5-15); BUN 14 mg/dL (4-19); Calcium,Total 9.5 mg/dL (7.6-11.0); Carbon Dioxide 26.1 mmol/L (21.0-32.0); Chloride 98 mmol/L (98-108); Creatinine, Serum 0.98 mg/dL (0.70-1.20); EST Glomerular Filtration Rate 89 (>60); Estimated Creatinine Clearance 117.25 ml/min (50-250); Glucose 118 mg/dL (70-99); Potassium 3.5 mmol/L (3.3-5.1); Sodium Level 138 mmol/L (133-145)
--- NOTE | 2025-03-20 07:49 | PN.HOSP_ITS ---
Reason for Visit Reason for Visit: Diagnoses Morbid (severe) obesity due to excess calories (03/19/25) Morbid (severe) obesity with alveolar hypoventilation (03/19/25) Hypertensive urgency (03/19/25) Unspecified diastolic (congestive) heart failure (03/19/25) Acute on chronic diastolic (congestive) heart failure (03/19/25) Dyspnea, unspecified (03/19/25) Other abnormalities of breathing (03/19/25) Other specified abnormal findings of blood chemistry (03/19/25) Body mass index [BMI] 50.0-59.9, adult (03/19/25) Subjective Subjective Still with [place]. Objective Data Objective Data Vital Signs: Vital Signs Temp Pulse Resp BP Pulse Ox O2 Del Method O2 Flow Rate 36.4 C L 78 17 142/93 H 94 Nasal Cannula 2 03/20/25 03:30 03/20/25 03:30 03/20/25 03:30 03/20/25 03:30 03/20/25 03:30 03/20/25 03:35 03/20/25 03:35 Oxygen Flow Rate (L/min) 2 Oxygen Delivery Method Nasal Cannula Weight: 156.1 kg Body Mass Index (BMI) 53.8 Intake & Output: Intake and Output for Last 24 Hours 03/18/25 03/19/25 03/20/25 23:59 23:59 23:59 Intake Total 200 / 200 500 / 500 0 / 0 Output Total 740 / 740 825 / 825 600 / 600 Balance -540 / -540 -325 / -325 -600 / -600 Lab / Micro Data 03/19/25 05:03 03/20/25 05:26 Labs: Laboratory Results - last 24 hr 03/19/25 21:30: Phosphorus 3.2 03/20/25 05:26: Sodium 138, Potassium 3.5, Chloride 98, Carbon Dioxide 26.1, Anion Gap 14, BUN 14, Creatinine 0.98, Estim Creat Clear Calc 117.25, Est GFR (MDRD) Non-Af 89, BUN/Creatinine Ratio 14.0, Glucose 118 H, Calcium 9.5 ABG Data ABG results: ABG 03/19/25 08:37 Specimen Type CANDICE Sample Site Not entered VBG pH 7.35 VBG pO2 105 H VBG HCO3 35 H VBG Total CO2 36 H VBG O2 Sat (Calc) 98 H VBG Base Excess 9 H POC Mix VBG pCO2 Pt Tmp 62.4 H O2 Delivery Device Not entered Physical Exam Const Constitutional Narrative: up in chair. on nasal cannula. no respiratory distress. no conversational dyspnea. HEENT head/scalp atraumatic and moist oral mucous membranes Resp normal respiratory effort, no retractions, no use of accessory muscles and clear to auscultation bilaterally Cardio regular rate, regular rhythm, S1 normal heart sound and S2 normal heart sound GI normal to inspection, nondistended, normoactive bowel sounds and soft to palpation Extremity General Extremity: edema bilateral lower extremity Details: mild Assessment & Plan Assessment/Plan (1) Hypertensive urgency: PLAN: Improved, may have been exacerbated by acute CHF Continue atenolol 100/d, losartan 100/d, minoxidil 20/d, nifedipine 30/d (2) (HFpEF) heart failure with preserved ejection fraction: PLAN: acute exacerbation personally reviewed CT images and has GGO. His pleural effusion look more pronounced than it did last month. Change furosemide to 40 IV BID. echo shows an EF 70% w stage I DD. Trivial to small pericardial effusion. Continue with IV furosemide Creatinine normalized. Plan for 1 more day of IV furosemide. Hopefully can discharge on 03/21 w/o oxygen. PLAN: Plan Chronic conditions: * obesity class III: complicates care and recovery * BPH: tamsulosin * Depression: continue SSRI * Afib: continue atenolol and apixaban VTE prophylaxis: not indicated as already anticoagulated. DW patient's at bedside. Charges/Coding Visit Charges Inpatient E&M: 92767 Subs Hosp L2
[2025-03-20 08:31] VITALS: O2SAT 98
[2025-03-20 08:33] VITALS: BP 161/77; PULSE 78; RESP 16; TEMP 36.6; O2SAT 95
[2025-03-20] MEDS: Acetaminophen 325 MG Tablet 650 MG PO ×2 (08:40→21:06)
[2025-03-20] MEDS: Furosemide 40 MG/4 ML Vial IV ×3 (08:40→20:58)
[2025-03-20] MEDS: Minoxidil 10 MG Tablet 20 MG PO (08:40)
[2025-03-20] MEDS: Sodium Chloride 0.65% 1 SPRAY SPRAY.BTL 2 SPRAY NASAL (08:41)
[2025-03-20] MEDS: Escitalopram Oxalate 10 MG Tablet PO (08:41)
[2025-03-20] MEDS: APIXABAN 5 MG TABLET PO ×2 (08:41→20:58)
[2025-03-20] MEDS: Losartan Potassium 100 MG Tablet PO (08:41)
[2025-03-20] MEDS: Pantoprazole Sodium 20 MG Tablet PO (08:41)
[2025-03-20] MEDS: Aspirin 81 MG TAB.CHEW PO (08:41)
[2025-03-20] MEDS: Atenolol 100 MG Tablet PO (08:41)
[2025-03-20] MEDS: NIFEdipine 30 MG Tablet PO (08:41)
[2025-03-20 14:00] VITALS: BP 120/81; PULSE 65; RESP 16; TEMP 36.4; O2SAT 95
[2025-03-20 19:00] VITALS: PULSE 63
[2025-03-20 20:00] VITALS: BP 139/89; PULSE 77; RESP 18; TEMP 36.7; O2SAT 95
[2025-03-20] MEDS: GUANFACINE HCL 1 MG TAB.ER.24H PO (20:57)
[2025-03-20] MEDS: Tamsulosin HCl 0.4 MG Capsule PO (20:58)
[2025-03-20] MEDS: Finasteride 5 MG Tablet PO (22:06)
[2025-03-21] VITALS (8 sets, daily range): BP systolic 108–151; BP diastolic 70–95; PULSE 72–85; RESP 16–18; TEMP 36.1–36.6; O2SAT 75–96; BMI 52.0
[2025-03-21] MEDS: Furosemide 40 MG/4 ML Vial IV ×3 (06:42→20:33)
[2025-03-21] MEDS: Atenolol 100 MG Tablet PO (07:50)
[2025-03-21] MEDS: Aspirin 81 MG TAB.CHEW PO (07:50)
[2025-03-21] MEDS: Losartan Potassium 100 MG Tablet PO (07:50)
[2025-03-21] MEDS: Minoxidil 10 MG Tablet 20 MG PO (07:50)
[2025-03-21] MEDS: NIFEdipine 30 MG Tablet PO (07:50)
[2025-03-21] MEDS: Escitalopram Oxalate 10 MG Tablet PO (07:50)
[2025-03-21] MEDS: APIXABAN 5 MG TABLET PO ×2 (07:51→20:32)
[2025-03-21] MEDS: Pantoprazole Sodium 20 MG Tablet PO (07:51)
[2025-03-21] MEDS: Acetaminophen 325 MG Tablet 650 MG PO ×3 (07:53→20:29)
--- NOTE | 2025-03-21 08:12 | PN.HOSP_ITS ---
Reason for Visit Reason for Visit: Diagnoses Morbid (severe) obesity due to excess calories (03/19/25) Morbid (severe) obesity with alveolar hypoventilation (03/19/25) Hypertensive urgency (03/19/25) Unspecified diastolic (congestive) heart failure (03/19/25) Acute on chronic diastolic (congestive) heart failure (03/19/25) Dyspnea, unspecified (03/19/25) Other abnormalities of breathing (03/19/25) Other specified abnormal findings of blood chemistry (03/19/25) Body mass index [BMI] 50.0-59.9, adult (03/19/25) Subjective Subjective Overall better. No oxygen needed with rest, but does require oxygen with activity. Objective Data Objective Data Vital Signs: Vital Signs Temp Pulse Resp BP Pulse Ox O2 Del Method O2 Flow Rate 36.1 C L 75 18 151/89 H 96 Nasal Cannula 2 03/21/25 07:45 03/21/25 07:45 03/21/25 07:45 03/21/25 07:45 03/21/25 07:45 03/21/25 07:45 03/21/25 07:45 Oxygen Flow Rate (L/min) 2 Oxygen Delivery Method Nasal Cannula Weight: 150.8 kg Body Mass Index (BMI) 52.0 Intake & Output: Intake and Output for Last 24 Hours 03/19/25 03/20/25 03/21/25 23:59 23:59 23:59 Intake Total 500 / 500 0 / 180 300 / 300 Output Total 825 / 825 1900 / 2875 1650 / 1650 Balance -325 / -325 -1900 / -2695 -1350 / -1350 Lab / Micro Data 03/19/25 05:03 03/21/25 06:23 Physical Exam Const alert and no apparent distress Constitutional Narrative: up in chair, on nasal cannula, no respiratory distress. no conversational dyspnea. Resp normal respiratory effort, no retractions, no use of accessory muscles and clear to auscultation bilaterally Cardio regular rate, regular rhythm, S1 normal heart sound and S2 normal heart sound GI normal to inspection, nondistended, normoactive bowel sounds, soft to palpation, non-tender and non-distended Extremity General Extremity: edema bilateral lower extremity Details: moderate Assessment & Plan Assessment/Plan (1) Hypertensive urgency: PLAN: Improved, may have been exacerbated by acute CHF Continue atenolol 100/d, losartan 100/d, minoxidil 20/d, nifedipine 30/d (2) (HFpEF) heart failure with preserved ejection fraction: PLAN: acute exacerbation personally reviewed CT images and has GGO. His pleural effusion look more pronounced than it did last month. Change furosemide to 40 IV BID. echo shows an EF 70% w stage I DD. Trivial to small pericardial effusion. Continue with IV furosemide Creatinine normalized. Plan for 1 more day of IV furosemide. Hopefully can discharge on 15 w/o oxygen. PLAN: Plan Chronic conditions: * obesity class III: complicates care and recovery * BPH: tamsulosin * Depression: continue SSRI * Afib: continue atenolol and apixaban VTE prophylaxis: not indicated as already anticoagulated. DW patient's at bedside. Charges/Coding Visit Charges Inpatient E&M: 32527 Subs Hosp L2
[2025-03-21 08:17] LABS: Anion Gap 12 (5-15); BUN 15 mg/dL (4-19); BUN/Creat Ratio 16.3 RATIO (10-20); Calcium,Total 9.4 mg/dL (7.6-11.0); Carbon Dioxide 28.3 mmol/L (21.0-32.0); Chloride 98 mmol/L (98-108); Creatinine, Serum 0.94 mg/dL (0.70-1.20); EST Glomerular Filtration Rate 93 (>60); Estimated Creatinine Clearance 119.66 ml/min (50-250); Glucose 129 mg/dL (70-99); Potassium 3.4 mmol/L (3.3-5.1); Sodium Level 138 mmol/L (133-145)
--- NOTE | 2025-03-21 11:54 | CASEMGMT ---
KEVIN NEWMAN chart review: Patient was admitted 03/02-03/05/25 for CHF and new Afib. See assessment from 03/03/25. Patient did not qualify for home oxygen last admission and discharged to home with family support and started on Eliquis. Patient returned to [facility] ED on 03/19/25 for increased SOB. Patient was admitted HTN urgency and CHF and started on IV Lasix. KEVIN NEWMAN in to discuss readmission and needs at discharge. Patient states he was taking medications as prescribed. Patient states he was following low sodium diet. Patient does admit that he was drinking lots of fluids over the weekend. Patient returned to [facility] prior to PCP appt scheduled on 03/30/25. KEVIN NEWMAN discussed weighing self daily to monitor for fluid retention, patient and voiced understanding. Will monitor for home oxygen, prefers [facility]. Patient denies further needs or help at discharge. CM will continue to follow this patient and plan for safe discharge.
[2025-03-21] MEDS: 0.9% Saline Lock 10 ML Syringe IV ×2 (14:06→20:35)
[2025-03-21] MEDS: GUANFACINE HCL 1 MG TAB.ER.24H PO (20:30)
[2025-03-21] MEDS: Tamsulosin HCl 0.4 MG Capsule PO (20:33)
[2025-03-21] MEDS: Finasteride 5 MG Tablet PO (20:35)
[2025-03-22] VITALS (7 sets, daily range): BP systolic 128–139; BP diastolic 52–84; PULSE 85–111; RESP 16; TEMP 36.1–37; O2SAT 89–96; BMI 51.3
[2025-03-22] MEDS: Acetaminophen 325 MG Tablet 650 MG PO ×3 (02:24→14:44)
[2025-03-22] MEDS: Furosemide 40 MG/4 ML Vial IV (06:03)
[2025-03-22] MEDS: 0.9% Saline Lock 10 ML Syringe IV (06:03)
[2025-03-22 06:57] LABS: Anion Gap 10 (5-15); BUN 18 mg/dL (4-19); BUN/Creat Ratio 16.4 RATIO (10-20); Calcium,Total 9.1 mg/dL (7.6-11.0); Carbon Dioxide 30.9 mmol/L (21.0-32.0); Chloride 96 mmol/L (98-108); Creatinine, Serum 1.07 mg/dL (0.70-1.20); EST Glomerular Filtration Rate 80 (>60); Estimated Creatinine Clearance 104.28 ml/min (50-250); Glucose 138 mg/dL (70-99); Potassium 3.7 mmol/L (3.3-5.1); Sodium Level 137 mmol/L (133-145)
[2025-03-22] MEDS: Losartan Potassium 100 MG Tablet PO (08:16)
[2025-03-22] MEDS: Aspirin 81 MG TAB.CHEW PO (08:16)
[2025-03-22] MEDS: Minoxidil 10 MG Tablet 20 MG PO (08:16)
[2025-03-22] MEDS: Atenolol 100 MG Tablet PO (08:16)
[2025-03-22] MEDS: Escitalopram Oxalate 10 MG Tablet PO (08:16)
[2025-03-22] MEDS: APIXABAN 5 MG TABLET PO (08:16)
[2025-03-22] MEDS: Pantoprazole Sodium 20 MG Tablet PO (08:16)
[2025-03-22] MEDS: NIFEdipine 30 MG Tablet PO (08:17)
--- NOTE | 2025-03-22 14:50 | DCINST_ITS ---
Discharge Instructions Diet Discharge Diet: Low fat / Low cholesterol DC O2, CPAP, BIPAP needs Home O2 Discharge instructions: No Dressing / Incision Discharge Activity: Return to Normal Activity Weight Bearing Status: Weight bearing as tolerated Dressing / Incision Call your doctor if you observe: Fever of 101 or Higher, Shortness of breath, Dizziness, Swelling in the ankles, Chest pain and Calf discomfort Follow Up Care Test Results: Test results from this visit will be discussed in further detail at your follow- up appointment, if applicable. Discharge Plan Admission Admit Date/Time: 03/19/25 14:17 Primary Reason for Your Visit: hypertension, HFpEF Attending Provider: Zoë Khan Primary Care Provider: Eduard Wells Consulting Providers: Thierno Capmos; Malcom Madsen Instructions Patient Instructions: High Blood Pressure Risk Factors Discharge Orders/Prescriptions Prescriptions: New furosemide 40 mg tablet 40 mg PO BID Qty: 60 2RF potassium chloride 20 mEq tablet extended release 20 meq PO BID Qty: 60 2RF Continued guanfacine 1 mg tablet 1 tablet PO QPM 30 Days Qty: 30 Patient Comments: minoxidil 10 MG tablet 20 mg PO DAILY Patient Comments: TAKE 2 TABLETS BY MOUTH ONCE DAILY Rx Instructions: escitalopram oxalate 10 mg tablet 10 mg PO DAILY nifedipine 30 mg tablet extended release 24hr 30 mg PO DAILY tamsulosin 0.4 mg capsule 0.4 mg PO QHS omeprazole 20 mg capsule,delayed release(DR/EC) 20 mg PO DAILY losartan 100 mg tablet 100 mg PO DAILY finasteride 5 mg tablet 5 mg PO QPM atenolol 100 mg Tablet 100 mg PO DAILY 30 Days Qty: 30 2RF aspirin 81 mg Tablet,Chewable 81 mg PO DAILY@0800 30 Days Qty: 30 2RF Eliquis 5 mg Tablet 5 mg PO BID 30 Days Qty: 60 2RF Discontinued furosemide [Lasix] 20 mg tablet 20 mg PO .COMPLEX Rx Instructions: 20 mg orally every other day; Referrals / Follow Up: Eduard Wells MD [Primary Care Provider] - Within 1 Week Disposition Disposition (needs filled in before D/C Order can be placed): Home, Self Care
--- NOTE | 2025-03-22 14:52 | PCM.DC.SUM ---
Providers Date of Admission: 03/19/25 Date of Discharge: 03/22/25 Primary Care Physician: Dr. Eduard Wells MD Reason For Visit: HYPERTENSIVE URGENCY WITH OHS AND CHRONIC HYPOXIA Diagnosis Discharge Diagnosis (1) Hypertensive urgency: Status: Acute Code(s): I16.0 - Hypertensive urgency (2) (HFpEF) heart failure with preserved ejection fraction: Status: Acute Code(s): I50.30 - Unspecified diastolic (congestive) heart failure Medications at Discharge Home Medications guanfacine 1 mg tablet 1 tablet PO QPM BLOOD PRESSURE 30 days ##30 05/09/18 minoxidil 10 mg tablet 20 mg PO DAILY HAIR GROWTH 09/26/19 finasteride 5 mg tablet 5 mg PO QPM 03/02/25 losartan 100 mg tablet 100 mg PO DAILY 03/02/25 nifedipine 30 mg tablet,extended release 24 hr 30 mg PO DAILY 03/02/25 omeprazole 20 mg capsule,delayed release 20 mg PO DAILY 03/02/25 tamsulosin 0.4 mg capsule 0.4 mg PO QHS 03/02/25 apixaban 5 mg tablet (Eliquis) 5 mg PO BID 30 days #60 tabs 03/05/25 aspirin 81 mg chewable tablet 81 mg PO DAILY@0800 30 days #30 tabs 03/05/25 atenolol 100 mg tablet 100 mg PO DAILY 30 days #30 tabs 03/05/25 escitalopram oxalate 10 mg tablet 10 mg PO DAILY 03/18/25 furosemide 40 mg tablet 40 mg PO BID #60 tabs 03/22/25 potassium chloride 20 mEq tablet,extended release 20 meq PO BID #60 tabs 03/22/25 Hospital Course Operations None Procedures 2-D Echocardiogram Summary of Care Provided Minutes Spent on Discharge: 45 Hospital Course: Patient is a 59-year-old male with a past medical history as outlined was admitted to the ED on 03/18/2025 with a complaint of shortness of breath. His symptoms started about 1 to 2 days prior to admission and he had associated persistent shortness of breath. Symptoms were worsened by exertion with respiratory rate of 33 breaths/min. He was requiring 3 L of oxygen at time of admission. His initial blood pressure was also markedly elevated at 194/104. CT chest showed bilateral pleural effusions and ground glass opacities concerning for pulmoonary edema with mild cardiomegaly and stable, small perciardial effusion and finding suggestive of pulmonary edema. He was admitted to be managed for acute hypoxia due to hypertensive urgency and acute exacerbation of HFpEF. He was diuresed with IV Lasix.CT of the abdomen and pelvis showed cardiomegaly he had 2D echo which showed EF of 70% with stage I diastolic dysfunction. His hypertension improved and blood pressure control improved significantly. His shortness of breath improved and he was weaned down to room air. He was discharged home on 03/22/2025 with a prescription for p.o. Lasix 40 mg twice daily with potassium supplementation to prevent hypokalemia. He also discharged on his home dose of atenolol and nifedipine. He is follow-up with his primary care doctor within 1 to 2 weeks. Patient seen and examined prior to discharge. He had no active complaints. Review of systems otherwise negative. Labs and vitals reviewed. Home medication reviewed and reconciled. Physical Exam Const alert, oriented x3 and no apparent distress Constitutional Narrative: class III obesity General Appearance: cooperative, comfortable and well kempt Orientation / Consciousness: awake Exam Limitations: no limitations HEENT normocephalic, head/scalp atraumatic, hearing grossly normal bilaterally, moist oral mucous membranes and oropharynx normal Mouth: oral and palatal mucosa normal Eyes PERRL, EOMs intact bilaterally and conjunctivae normal Neck no lymphadenopathy and supple Resp normal respiratory effort, no retractions, no use of accessory muscles and clear to auscultation bilaterally Cardio regular rate, regular rhythm, S1 normal heart sound, S2 normal heart sound and no murmurs GI normal to inspection, nondistended, normoactive bowel sounds, soft to palpation, non-tender and non-distended Extremity normal to inspection, full ROM and no clubbing, cyanosis or edema Skin no rashes or lesions noted Neuro oriented x3, CN's II-XII intact bilaterally, moves all extremities and no focal motor deficits Sensorium / Orientation: awake Motor Exam: strength 5/5 throughout Psych affect normal Weight / BMI Weight Weight: 328 lb 0.765 oz Body Mass Index (BMI) 51.3 ABG / Lab / Microbiology Data 03/19/25 05:03 03/22/25 05:50 Laboratory: Laboratory Results - last 24 hr 03/22/25 05:50: Sodium 137, Potassium 3.7, Chloride 96 L, Carbon Dioxide 30.9, Anion Gap 10, BUN 18, Creatinine 1.07, Estim Creat Clear Calc 104.28, Est GFR (MDRD) Non-Af 80, BUN/Creatinine Ratio 16.4, Glucose 138 H, Calcium 9.1 D/C Instructions Discharge Diet: Low fat / Low cholesterol Weight Bearing Status: Weight bearing as tolerated Call your doctor if you observe: Fever of 101 or Higher, Shortness of breath, Dizziness, Swelling in the ankles, Chest pain and Calf discomfort DC O2, CPAP, BIPAP Needs Home O2 Discharge instructions: No Meaningful Use Info Meaningful Use Meaningful Use Diagnoses (Choose all that apply): CHF CHF DEEJAY/ARB ordered at discharge?: Yes Documented LVEF (%): 70 Ischemic Stroke Statin Dosing Therapy Reference: STATIN DOSE THERAPY REFERENCE: * Patients > 75 years receive moderate or high dose statin therapy. * Patients 75 years or YOUNGER should receive HIGH intensity statin dose unless contraindicated. You will be required to document reason for non-treatment if statin daily dose does not meet guidelines. HIGH DOSE STATIN THERAPY DAILY Atorvastatin > than or = to 40 mg Rosuvastatin > than or = to 20 mg Amlodipine + Atorvastatin > than or = to 2.5/40 mg Ezetimibe + Simvastatin 10/80 mg Simvastatin 80mg Discharge Plan Admission Admit Date/Time: 03/19/25 14:17 Primary Reason for Your Visit: hypertension, HFpEF Attending Provider: Zoë Khan Primary Care Provider: Eduard Wells Consulting Providers: Thierno Campos; Malcom Madsen Instructions Patient Instructions: High Blood Pressure Risk Factors Discharge Orders/Prescriptions Prescriptions: New furosemide 40 mg tablet 40 mg PO BID Qty: 60 2RF potassium chloride 20 mEq tablet extended release 20 meq PO BID Qty: 60 2RF Continued guanfacine 1 mg tablet 1 tablet PO QPM 30 Days Qty: 30 Patient Comments: minoxidil 10 MG tablet 20 mg PO DAILY Patient Comments: TAKE 2 TABLETS BY MOUTH ONCE DAILY Rx Instructions: escitalopram oxalate 10 mg tablet 10 mg PO DAILY nifedipine 30 mg tablet extended release 24hr 30 mg PO DAILY tamsulosin 0.4 mg capsule 0.4 mg PO QHS omeprazole 20 mg capsule,delayed release(DR/EC) 20 mg PO DAILY losartan 100 mg tablet 100 mg PO DAILY finasteride 5 mg tablet 5 mg PO QPM atenolol 100 mg Tablet 100 mg PO DAILY 30 Days Qty: 30 2RF aspirin 81 mg Tablet,Chewable 81 mg PO DAILY@0800 30 Days Qty: 30 2RF Eliquis 5 mg Tablet 5 mg PO BID 30 Days Qty: 60 2RF Discontinued furosemide [Lasix] 20 mg tablet 20 mg PO .COMPLEX Rx Instructions: 20 mg orally every other day; Referrals / Follow Up: Eduard Wells MD [Primary Care Provider] - Within 1 Week Disposition Disposition (needs filled in before D/C Order can be placed): Home, Self Care Charges/Coding Visit Charges Inpatient E&M: 14754 Disch Hosp >30min
--- NOTE | 2025-03-22 15:13 | CASEMGMT ---
Patient has order for discharge. Patient does not require oxygen at discharge. RN CM in to discuss needs at discharge. Patient denies needs or help at discharge. Patient had no further questions or concerns.
== END 2025-03-22 17:14 | disposition home or self-care (01) | DRG 291 ==
LOC: ED 20:17 → PCU 21:40
PROVIDERS: Admitting Provider Internal Medicine; Emergency Provider Emergency Medicine; PCP Family Medicine; Visit Provider Student in an Organized Health Care Education/Training Program
DX: I11.0 Hypertensive heart disease with heart failure (principal); I50.33 Acute on chronic diastolic (congestive) heart failure; E66.2 Morbid (severe) obesity with alveolar hypoventilation; Z68.43 Body mass index [BMI] 50.0-59.9, adult; Z79.01 Long term (current) use of anticoagulants; I16.0 Hypertensive urgency; F32.A Depression, unspecified; I48.91 Unspecified atrial fibrillation; M19.019 Primary osteoarthritis, unspecified shoulder; K21.9 Gastro-esophageal reflux disease without esophagitis; F41.9 Anxiety disorder, unspecified; N40.0 Benign prostatic hyperplasia without lower urinary tract symptoms; Z79.82 Long term (current) use of aspirin; Z79.899 Other long term (current) drug therapy
CPT/HCPCS: 36415; 71045; 71275; 80048; 80053; 81001; 82803; 83735; 83880; 84100; 84484; 85025; 85379; 93005; 94668; 97161; 97802; 99252; 99285; P9047; Q9967; A4216; G0463; J1940

== ENCOUNTER 2025-03-25 16:12 | Emergency (ER) | payer OTHER, SELFPAY ==
[2025-03-25 16:13] VITALS: BP 171/95; RESP 86; TEMP 36.4; O2SAT 28
[2025-03-25 16:44] LABS: Absolute Lymphocyte Count 2.12 X10^3/uL (0.83-4.51); Absolute Neutrophil Count 1.8 X10^3/uL (2.0-7.7); Basophil# 0.04 X10^3/uL; Basophil% 0.9 % (0-1); Eosinophil# 0.07 X10^3/uL; Eosinophils% 1.6 % (0-5); Hematocrit 43.1 % (40-54); Hemoglobin 14.4 g/dL (13.0-16.5); Lymphocyte # 2.12 X10^3/ul (0.83-4.51); Lymphocyte % 48.1 % (19-41); Mean Corp Hgb Conc 33.4 g/dL (32-36); Mean Corpuscular Hgb 28.2 pg (27.0-32.0); Mean Corpuscular Volume 84.3 fL (80-94); Mean Platelet Vol. 9.6 fl (6.2-12.0); Monocyte% 9.1 % (0-10); NRBC Flagged by Analyzer 0 % (0-5); Neutrophil # 1.77 X10^3/uL (2.7-7.7); Neutrophil % 40.1 % (47-70); Platelet Count 256 K/mm3 (150-450); RBC Distribution Width CV 13.3 % (11.6-14.6); RBC Distribution Width SD 41.2 fl (35.1-43.9); Red Blood Count 5.11 M/mm3 (4.6-6.2); White Blood Count 4.4 K/mm3 (4.4-11.0)
--- NOTE | 2025-03-25 16:59 | EX.ED.DYSGE1 ---
HPI <CALVIN Ramirez - Last Filed: 03/25/25 22:11> History of Present Illness Chief Complaint: Diarrhea Narrative Narrative: Patient presenting today due to diarrhea he has had since . He reports that he is having multiple bouts daily. He denies any history of C. difficile. He reports that he had antibiotics about a month ago for cellulitis but is unsure what he was on. He denies any abdominal pain, fevers, chills, nausea, vomiting, and blood in the stool. He denies history of diverticulitis. He has a PMH of CHF and recently was discharged from the hospital on due to CHF exacerbation. He has been doing well in that aspect since being home. PFS <CALVIN Ramirez - Last Filed: 03/25/25 22:11> [facility] Medical History Obesity hypoventilation syndrome Lymphedema Morbid obesity Shoulder pain HTN (hypertension) Home Medications ?Medication ?Instructions ?Recorded ?Last Taken ?Type guanfacine 1 mg tablet 1 tablet PO QPM BLOOD PRESSURE 30 05/09/18 03/01/25 History days ##30 minoxidil 10 mg tablet 20 mg PO DAILY HAIR GROWTH 09/26/19 03/02/25 History finasteride 5 mg tablet 5 mg PO QPM 03/02/25 03/01/25 History losartan 100 mg tablet 100 mg PO DAILY 03/02/25 03/02/25 History nifedipine 30 mg tablet,extended 30 mg PO DAILY 03/02/25 03/02/25 History release 24 hr omeprazole 20 mg capsule,delayed 20 mg PO DAILY 03/02/25 03/02/25 History release tamsulosin 0.4 mg capsule 0.4 mg PO QHS 03/02/25 03/01/25 History apixaban 5 mg tablet (Eliquis) 5 mg PO BID 30 days #60 tabs 03/05/25 Unknown Rx aspirin 81 mg chewable tablet 81 mg PO DAILY@0800 30 days #30 03/05/25 Unknown Rx tabs atenolol 100 mg tablet 100 mg PO DAILY 30 days #30 tabs 03/05/25 Unknown Rx escitalopram oxalate 10 mg tablet 10 mg PO DAILY 03/18/25 Unknown History furosemide 40 mg tablet 40 mg PO BID #60 tabs 03/22/25 Unknown Rx potassium chloride 20 mEq 20 meq PO BID #60 tabs 03/22/25 Unknown Rx tablet,extended release Allergy/AdvReac Type Severity Reaction Status Date / Time No Known Allergies Allergy Verified 03/25/25 16:13 Social History Smoking Status: Never smoker alcohol intake: never ROS <CALVIN Ramirez - Last Filed: 03/25/25 22:11> ROS ED Constitutional Constitutional ED: Denies chills or fever(s) Cardiovascular Cardiovascular: Denies chest pain Respiratory/Chest Respiratory/Chest: Denies dyspnea Gastrointestinal Gastrointestinal: Reports diarrhea; Denies abdominal pain, hematochezia, melena, nausea or vomiting Genitourinary Genitourinary ED: Reports urinary frequency; Denies dysuria or hematuria Integumentary Denies rash Neurologic Neurologic: Denies weakness EXAM <CALVIN Ramirez - Last Filed: 03/25/25 22:11> Physical Exam Const Vital Signs: 03/25/25 16:13 03/25/25 18:13 03/25/25 20:00 Temperature 97.6 F L Temperature Source Temporal Pulse Rate 88 88 Respiratory Rate 86 H 12 19 H Blood Pressure 171/95 H 116/64 Blood Pressure Mean 120 81 Pulse Ox 28 97 96 Oxygen Delivery Method Room Air Room Air 03/25/25 22:00 03/25/25 22:26 Temperature 97.6 F L Temperature Source Pulse Rate 82 95 Respiratory Rate 20 H 19 H Blood Pressure 102/64 102/64 Blood Pressure Mean 76 76 Pulse Ox 93 94 Oxygen Delivery Method Room Air Positive well nourished, well developed and no apparent distress General Appearance ED: well developed HEENT Reports normocephalic and head/scalp atraumatic Mouth ED: Yes moist mucous membranes normal Eyes PERRL and EOMs intact bilaterally Neck full ROM and supple Chest Wall inspection of chest normal Resp normal respiratory effort and clear to auscultation bilaterally Cardio regular rate and regular rhythm GI soft to palpation, non-tender, non-distended and no masses Back/Spine normal ROM and normal to inspection Extremity normal to inspection and full ROM Neuro oriented x3, CN's II-XII intact bilaterally, moves all extremities, no focal motor deficits and no sensory deficits noted Sensorium / Orientation: awake and alert Psych mental status grossly normal and thought process normal Skin no rashes or lesions noted and no wounds <Dr. Jhonny Evans DO - Last Filed: 03/25/25 23:47> Physical Exam Const Vital Signs: 03/25/25 16:13 03/25/25 18:13 03/25/25 20:00 Temperature 97.6 F L Temperature Source Temporal Pulse Rate 88 88 Respiratory Rate 86 H 12 19 H Blood Pressure 171/95 H 116/64 Blood Pressure Mean 120 81 Pulse Ox 28 97 96 Oxygen Delivery Method Room Air Room Air 03/25/25 22:00 03/25/25 22:26 Temperature 97.6 F L Temperature Source Pulse Rate 82 95 Respiratory Rate 20 H 19 H Blood Pressure 102/64 102/64 Blood Pressure Mean 76 76 Pulse Ox 93 94 Oxygen Delivery Method Room Air MDM <CALVIN Ramirez - Last Filed: 03/25/25 22:11> [facility] MDM Narrative Medical decision making narrative: Patient presenting today with diarrhea that has been ongoing since . He denies having any abdominal pain or history of C. difficile. If he is able to provide us a stool sample here we will test him for C. difficile and other pathogens. Basic labs will be obtained to assess for leukocytosis, electrolyte abnormality, and SIERRA. Given he has a history of CHF and was just discharged from the hospital due to a CHF exacerbation on , we will hold off on IV fluids. He is drinking p.o. fluids at the bedside. His CBC is unremarkable, creatinine stable, his potassium is low here at 2.6, calcium is 5.5, however ionized calcium level is WNL. His magnesium is low at 1.2. He was given 40 mEq of p.o. potassium and 40 of IV potassium. EKG does not show any hypokalemia changes. He was given magnesium replacement here. He was able to provide us a stool sample, this is pending. UA negative for UTI. Repeat potassium and magnesium levels checked and are now within normal limits, magnesium slightly elevated. C. difficile is negative. The rest of his stool studies are pending. At this point I feel we can discharge patient home, he feels comfortable going home. He has to follow-up with his PCP on Wednesday. Recommended he have his electrolytes rechecked and he will be discharged home in stable condition. Return instructions discussed. Lab Data Attestation: I reviewed the patient's lab results. Labs: Laboratory Results - last 24 hr 03/25/25 03/25/25 03/25/25 16:39 17:28 19:25 WBC 4.4 RBC 5.11 Hgb 14.4 Hct 43.1 MCV 84.3 MCH 28.2 MCHC 33.4 RDW Std Deviation 41.2 RDW Coeff of Bre 13.3 Plt Count 256 MPV 9.6 Immature Gran % (Auto) 0.200 Neut % (Auto) 40.1 L Lymph % (Auto) 48.1 H [place] % (Auto) 9.1 Eos % (Auto) 1.6 Baso % (Auto) 0.9 Absolute Neuts (auto) 1.8 L Absolute Lymphs (auto) 2.12 Nucleated RBC % 0 Sodium 141 Potassium 2.6 L* Chloride 119 H Carbon Dioxide 14.4 L Anion Gap 8 BUN 11 Creatinine 0.61 L Est GFR (MDRD) Non-Af 111 BUN/Creatinine Ratio 17.5 Glucose 67 L Calcium 5.5 L* Ionized Calcium 1.19 Magnesium 1.2 L Urine Color Yellow Urine Clarity Clear Urine pH 6.0 Ur Specific [place] 1.015 Urine Protein 15 H Urine Glucose (UA) Normal Urine Ketones Negative Urine Occult Blood Negative Urine Nitrite Negative Urine Bilirubin Negative Urine Urobilinogen Normal Ur Leukocyte Esterase Negative Urine RBC 0 SEEN Urine WBC 0 SEEN Ur Squamous Epith Cells 0 SEEN Urine Bacteria 0 SEEN Urine Mucus 0 SEEN 03/25/25 20:56 WBC RBC Hgb Hct MCV MCH MCHC RDW Std Deviation RDW Coeff of Bre Plt Count MPV Immature Gran % (Auto) Neut % (Auto) Lymph % (Auto) [place] % (Auto) Eos % (Auto) Baso % (Auto) Absolute Neuts (auto) Absolute Lymphs (auto) Nucleated RBC % Sodium Potassium 4.1 Chloride Carbon Dioxide Anion Gap BUN Creatinine Est GFR (MDRD) Non-Af BUN/Creatinine Ratio Glucose Calcium Ionized Calcium Magnesium 2.4 H Urine Color Urine Clarity Urine pH Ur Specific [place] Urine Protein Urine Glucose (UA) Urine Ketones Urine Occult Blood Urine Nitrite Urine Bilirubin Urine Urobilinogen Ur Leukocyte Esterase Urine RBC Urine WBC Ur Squamous Epith Cells Urine Bacteria Urine Mucus EKG Initial EKG: Comments: 93 bpm, atrial fibrillation, no ST elevation, reviewed and interpreted by attending ED physician <Dr. Jhonny Evans, DO - Last Filed: 03/25/25 23:47> [facility] Narrative Medical decision making narrative: Patient presenting today with diarrhea that has been ongoing since . He denies having any abdominal pain or history of C. difficile. If he is able to provide us a stool sample here we will test him for C. difficile and other pathogens. Basic labs will be obtained to assess for leukocytosis, electrolyte abnormality, and SIERRA. Given he has a history of CHF and was just discharged from the hospital due to a CHF exacerbation on , we will hold off on IV fluids. He is drinking p.o. fluids at the bedside. His CBC is unremarkable, creatinine stable, his potassium is low here at 2.6, calcium is 5.5, however ionized calcium level is WNL. His magnesium is low at 1.2. He was given 40 mEq of p.o. potassium and 40 of IV potassium. EKG does not show any hypokalemia changes. He was given magnesium replacement here. He was able to provide us a stool sample, this is pending. UA negative for UTI. Repeat potassium and magnesium levels checked and are now within normal limits, magnesium slightly elevated. C. difficile is negative. The rest of his stool studies are pending. At this point I feel we can discharge patient home, he feels comfortable going home. He has to follow-up with his PCP on Wednesday. Recommended he have his electrolytes rechecked and he will be discharged home in stable condition. Return instructions discussed. Supervisory Physician Note Patient was seen and examined with the Advanced Practice Provider. Nursing notes and vital signs have been reviewed. Pertinent old records have been reviewed. I agree with the essential elements of the DALE's history, physical exam, assessment, and plan. The differential diagnosis and management options were discussed with the DALE. I participated in determining and agree with the management, procedures, final impression and disposition as documented. See changes noted by me. Please see addendum or separate note for any additional details. 59-year-old male presents for evaluation of nonbloody diarrhea. Onset of symptoms since . Multiple episodes. No abdominal pain. Was recently on antibiotics a month ago for cellulitis. Denies any fever, chills, shortness of breath, chest pain, nausea, vomiting, URI symptoms. Endorses some urinary frequency but no dysuria. Gen: A&O x3, NAD Head: Normocephalic, atraumatic Eyes: No sclera icterus, conjunctiva clear ENT: Moist mucous membranes Neck: Trachea midline, No JVD CV: RRR, no murmurs, no peripheral edema Resp: Lungs CTA BL, no w/r/c GI: Abd soft, non-distended, non-tender, no r/r/g Musc: Full ROM, no deformity Skin: Warm, dry Neuro: Alert, oriented, grossly intact, sensation intact Psych: Cooperative, appropriate mood and affect Patient in no acute distress and nontoxic-appearing. Not hypotensive. Does not appear clinically dehydrated on exam. He is tolerating p.o. fluids at bedside. Will hold off on IV fluids given patient does have a CHF exacerbation and was admitted for diuresis. Differential diagnosis includes but is not limited to viral gastroenteritis, C. difficile, electrolyte abnormality, lung parasites. Patient not endorsing abdominal pain, I do not think any CT abdomen pelvis is needed at this time. CBC unremarkable without leukocytosis or anemia. BMP shows hypokalemia of 2.6. No SIERRA. P.o. and IV potassium ordered. Will add on magnesium level. Calcium 5.5. Will get ionized calcium to see if this needs to be replaced. UA negative for UTI. Magnesium level 1.2. IV magnesium ordered. Ionized calcium 1.19. This is within normal range. Given electrolyte abnormalities, EKG was obtained. EKG shows known atrial fibrillation. No ischemic changes. Heart rate 93. Patient had a bowel movement here in the emergency department. C. difficile antigen positive but toxin negative, patient does not have active C. difficile infection. The rest of his stool bio fire is pending. Repeat potassium after replacement is 4.1. Repeat magnesium is 2.4. Patient is stable to discharge home. He has an appointment with his PCP next week. He was told to keep this appointment. He will need to have his labs repeated at this time. Return precautions explained. 30 minutes of critical care time utilized in managing the patient. This is due to high probability of and deterioration of the patient based on the patient's electrolyte abnormality and excludes any separately billable procedures. Impression: 1. Diarrhea 2. Hypokalemia, treated and resolved 3. Severe hypomagnesia, treated and resolved Lab Data Labs: Laboratory Results - last 24 hr 03/25/25 03/25/25 03/25/25 16:39 17:28 19:25 WBC 4.4 RBC 5.11 Hgb 14.4 Hct 43.1 MCV 84.3 MCH 28.2 MCHC 33.4 RDW Std Deviation 41.2 RDW Coeff of Bre 13.3 Plt Count 256 MPV 9.6 Immature Gran % (Auto) 0.200 Neut % (Auto) 40.1 L Lymph % (Auto) 48.1 H [place] % (Auto) 9.1 Eos % (Auto) 1.6 Baso % (Auto) 0.9 Absolute Neuts (auto) 1.8 L Absolute Lymphs (auto) 2.12 Nucleated RBC % 0 Sodium 141 Potassium 2.6 L* Chloride 119 H Carbon Dioxide 14.4 L Anion Gap 8 BUN 11 Creatinine 0.61 L Est GFR (MDRD) Non-Af 111 BUN/Creatinine Ratio 17.5 Glucose 67 L Calcium 5.5 L* Ionized Calcium 1.19 Magnesium 1.2 L Urine Color Yellow Urine Clarity Clear Urine pH 6.0 Ur Specific [place] 1.015 Urine Protein 15 H Urine Glucose (UA) Normal Urine Ketones Negative Urine Occult Blood Negative Urine Nitrite Negative Urine Bilirubin Negative Urine Urobilinogen Normal Ur Leukocyte Esterase Negative Urine RBC 0 SEEN Urine WBC 0 SEEN Ur Squamous Epith Cells 0 SEEN Urine Bacteria 0 SEEN Urine Mucus 0 SEEN 03/25/25 20:56 WBC RBC Hgb Hct MCV MCH MCHC RDW Std Deviation RDW Coeff of Bre Plt Count MPV Immature Gran % (Auto) Neut % (Auto) Lymph % (Auto) [place] % (Auto) Eos % (Auto) Baso % (Auto) Absolute Neuts (auto) Absolute Lymphs (auto) Nucleated RBC % Sodium Potassium 4.1 Chloride Carbon Dioxide Anion Gap BUN Creatinine Est GFR (MDRD) Non-Af BUN/Creatinine Ratio Glucose Calcium Ionized Calcium Magnesium 2.4 H Urine Color Urine Clarity Urine pH Ur Specific [place] Urine Protein Urine Glucose (UA) Urine Ketones Urine Occult Blood Urine Nitrite Urine Bilirubin Urine Urobilinogen Ur Leukocyte Esterase Urine RBC Urine WBC Ur Squamous Epith Cells Urine Bacteria Urine Mucus Discharge Plan Triage Chief Complaint: Diarrhea ED Midlevel Provider: Fian Adame ED Provider: Jhonny Evans Dx/Rx/DC Orders Clinical Impression: Diarrhea, Acute hypokalemia, Hypomagnesemia Instructions: Hypokalemia Dc, Hypomagnesemia Dc, ED Diarrhea, Unknown Cause Prescriptions: No Action guanfacine 1 mg tablet 1 tablet PO QPM 30 Days Qty: 30 Patient Comments: minoxidil 10 MG tablet 20 mg PO DAILY Patient Comments: TAKE 2 TABLETS BY MOUTH ONCE DAILY Rx Instructions: escitalopram oxalate 10 mg tablet 10 mg PO DAILY furosemide 40 mg tablet 40 mg PO BID Qty: 60 2RF potassium chloride 20 mEq tablet extended release 20 meq PO BID Qty: 60 2RF nifedipine 30 mg tablet extended release 24hr 30 mg PO DAILY tamsulosin 0.4 mg capsule 0.4 mg PO QHS omeprazole 20 mg capsule,delayed release(DR/EC) 20 mg PO DAILY losartan 100 mg tablet 100 mg PO DAILY finasteride 5 mg tablet 5 mg PO QPM atenolol 100 mg Tablet 100 mg PO DAILY 30 Days Qty: 30 2RF aspirin 81 mg Tablet,Chewable 81 mg PO DAILY@0800 30 Days Qty: 30 2RF Eliquis 5 mg Tablet 5 mg PO BID 30 Days Qty: 60 2RF Primary Care Provider: Eduard Wells Referrals: Eduard Wells MD [Primary Care Provider] - 5-7 Days Activity Restrictions/Additional Instructions: Follow-up with your PCP to have your potassium and magnesium levels rechecked, return for any worsening symptoms. Stay well-hydrated. Print Language: [place] Disposition Disposition: Home, Self Care Discharge Date/Time: 03/25/25 22:31
[2025-03-25 17:08] LABS: Anion Gap 8 (5-15); BUN 11 mg/dL (4-19); BUN/Creat Ratio 17.5 RATIO (10-20); Calcium,Total 5.5 mg/dL (7.6-11.0); Carbon Dioxide 14.4 mmol/L (21.0-32.0); Chloride 119 mmol/L (98-108); Creatinine, Serum 0.61 mg/dL (0.70-1.20); EST Glomerular Filtration Rate 111 (>60); Glucose 67 mg/dL (70-99); Potassium 2.6 mmol/L (3.3-5.1); Sodium Level 141 mmol/L (133-145)
--- NOTE | 2025-03-25 17:13 | EKG12_ITS ---
Test Reason : Blood Pressure : */* mmHG Vent. Rate : 93 BPM Atrial Rate : * BPM P-R Int : * ms QRS Dur : 82 ms QT Int : 380 ms P-R-T Axes : * 150 50 degrees QTcB Int : 472 ms Atrial fibrillation Left posterior fascicular block Abnormal ECG Confirmed by BART HUBER, KASANDRA ([id number]), editor in chief TIA YUSUF ([id number]) on 03/26/2025 9:28:08 AM Referred By: Confirmed By: KASANDRA ARRIAGA MD
[2025-03-25] MEDS: Potassium Chloride Oral Soln 20 MEQ/15 ML UDC 40 MEQ PO (17:27)
[2025-03-25] MEDS: Potassium Chloride 10mEq/100mL 10 MEQ/100 ML IV.SOLN. 100 MEQ IV BOLUS ×4 (17:37→20:42)
[2025-03-25 17:38] VITALS: BMI 51.0
[2025-03-25 17:55] LABS: Magnesium 1.2 mg/dL (1.5-2.2)
[2025-03-25 18:04] LABS: Ionized Calcium 1.19 mmol/L (1.09-1.30)
[2025-03-25 18:13] VITALS: PULSE 88; RESP 12; O2SAT 97
[2025-03-25 18:18] LABS: Ionized Calcium Order ORD TUBE
[2025-03-25] MEDS: Magnesium Sulfate 2 GM in Dextrose 5%-Water (100mL Bag) 100 ML IV (18:49)
[2025-03-25 19:33] LABS: Bacteria 0 SEEN /hpf (None Seen); Mucous, Urine 0 SEEN /hpf (<or=2+); Red Blood Cells-Urine 0 SEEN /hpf (0-5); Squamous Epithelial Cells - UA 0 SEEN /hpf (0-5); White Blood Cells 0 SEEN /hpf (0-5)
[2025-03-25 19:40] LABS: Glucose, Dipstick Normal (Normal); Ketone-Dipstick Negative (Negative); Leukocyte Esterase-Dipstick Negative /ul (Negative); Nitrite-Dipstick Negative (Negative); Occult Blood-Urine Negative /ul (Negative); Protein-Dipstick 15 mg/dl (Negative); Specific Gravity, Urine 1.015 (1.002-1.030); Urine Bilirubin Dipstick Negative (Negative); Urine Urobilinogen Normal (Normal)
[2025-03-25 19:51] LABS: Color, Urine Yellow (Yellow); Urine Clarity Clear (Clear)
[2025-03-25 20:00] VITALS: BP 116/64; PULSE 88; RESP 19; O2SAT 96
[2025-03-25 21:21] LABS: Magnesium 2.4 mg/dL (1.5-2.2)
[2025-03-25 21:24] LABS: Potassium 4.1 mmol/L (3.3-5.1)
[2025-03-25 22:00] VITALS: BP 102/64; PULSE 82; RESP 20; O2SAT 93
[2025-03-25 22:26] VITALS: BP 102/64; PULSE 95; RESP 19; TEMP 36.4; O2SAT 94
== END 2025-03-25 22:31 | disposition home or self-care (01) ==
PROVIDERS: Physician Assistant; Emergency Provider Surgery; PCP Family Medicine; Visit Provider Surgery
DX: R19.7 Diarrhea, unspecified (principal); I11.0 Hypertensive heart disease with heart failure; I50.9 Heart failure, unspecified; E87.6 Hypokalemia; E83.42 Hypomagnesemia; Z79.82 Long term (current) use of aspirin; Z79.01 Long term (current) use of anticoagulants; Z79.899 Other long term (current) drug therapy
CPT/HCPCS: 80048; 81001; 82330; 83630; 83735; 84132; 85025; 87177; 87209; 87493; 87506; 93005; 96365; 96366; 96367; 99285; A4216

== ENCOUNTER 2025-05-16 10:59 | Day surgery (SDC) | payer MEDICAID, SELFPAY ==
[2025-05-15 08:43] VITALS: BMI 50.1
[2025-05-16 12:36] LABS: Anion Gap 11 (5-15); BUN 23 mg/dL (4-19); BUN/Creat Ratio 22.7 RATIO (10-20); Calcium,Total 9.4 mg/dL (7.6-11.0); Carbon Dioxide 26.8 mmol/L (21.0-32.0); Chloride 103 mmol/L (98-108); Estimated Creatinine Clearance 109.94 ml/min (50-250); Glucose 118 mg/dL (70-99); Potassium 4.0 mmol/L (3.3-5.1)
--- NOTE | 2025-05-16 12:39 | PCM.OP.PRO2 ---
Problems Associated Problem List Diagnoses (1) Atrial fibrillation: Non-invasive Procedural Procedure Information Date of Procedure: 05/16/25 Pre-Procedure Diagnosis: Atrial fibrillation Post-Procedure Diagnosis: Atrial fibrillation Procedure Performed:: Dc cardioversion Procedure Time Out: 12:05 Procedure Start Time: 12:20 Procedure Stop Time: :25 Special Medications: Intravenous propofol 100 mg Description of procedure: Patient was brought to the noninvasive lab in the postabsorptive nonsedated state. Patient was seen by Dr. Phillips of the critical care division. Informed consent was obtained. Patient has been on uninterrupted anticoagulation. Anterior posterior pads were applied. EKG demonstrated atrial fibrillation. 300 J of synchronized DC cardioversion energy biphasic were applied after patient was administered 100 mg of propofol. Patient successfully converted to sinus rhythm. Procedure findings: Successful DC cardioversion from atrial fibrillation to sinus rhythm. Follow-up as per office protocol
--- NOTE | 2025-05-16 13:06 | PRO.PCM_ITS ---
Procedures Pulmonary Pulmonary Procedures /Diagnostic Testin Con Sedation Non-invasive Procedural Procedure Information Date of Procedure: 05/16/25 Description of procedure: CONSCIOUS SEDATION REPORT DATE OF SERVICE: May 16, 2025 BRIEF HISTORY OF PRESENT ILLNESS: The patient is a 59-year-old male who presented to [facility] to undergo an elective outpatient cardioversion due to underlying atrial fibrillation. The patient denied any prior anesthetic complications. He is a non-smoker and has never been diagnosed with obstructive sleep apnea. The patient is systemically anticoagulated on Eliquis. His last surface echocardiogram demonstrated an ejection fraction of 70%. PHYSICAL EXAMINATION: VITAL SIGNS: Reviewed and were acceptable. GENERAL: The patient is an obese male, in no apparent distress, speaking in full sentences. HEENT: Normocephalic, atraumatic. Mucous membranes are moist and pink. Good mouth opening noted. Trachea is midline. CHEST: S1, S2 irregularly irregular. No murmurs, rubs or gallops were noted. LUNGS: Clear to auscultation bilaterally without appreciable wheezes, rales or rhonchi. ABDOMEN: Soft, nontender, nondistended. Positive bowel sounds. EXTREMITIES: There is no clubbing, cyanosis or edema. ASA Class: II DESCRIPTION OF PROCEDURE: After confirmation of informed consent, the patient's anesthesia plan was reviewed in detail. Propofol was chosen. Risks and benefits were reviewed and the patient agreed to proceed. At 1219, the patient was given his first bolus of propofol. In total, the patient required 100 mg of propofol to achieve an appropriate level of sedation, after which time, he was given a 300 joule synchronized cardioversion by Dr. Lucio at the bedside. This was successful in achieving normal sinus rhythm. The patient was monitored until 1234, at which time he reached his baseline mental status and function. The patient tolerated the procedure well. COMPLICATIONS: None ESTIMATED BLOOD LOSS: None RECOMMENDATIONS: Okay to recover in usual fashion.
== END 2025-05-16 13:30 | disposition home or self-care (01) ==
PROVIDERS: PCP Family Medicine; Referring Provider Internal Medicine Cardiovascular Disease; Visit Provider Internal Medicine Cardiovascular Disease
DX: I48.91 Unspecified atrial fibrillation (principal); I11.0 Hypertensive heart disease with heart failure; I50.30 Unspecified diastolic (congestive) heart failure; E66.01 Morbid (severe) obesity due to excess calories; Z68.43 Body mass index [BMI] 50.0-59.9, adult; F41.9 Anxiety disorder, unspecified; F32.A Depression, unspecified; Z79.899 Other long term (current) drug therapy; Z79.01 Long term (current) use of anticoagulants
CPT/HCPCS: 36415; 80048; 92960; 93005

== ENCOUNTER → 2025-08-10 | Outpatient (CLI) | payer MEDICAID, SELFPAY ==
--- OUTSIDE RECORDS SUMMARY | 2025-08-10 06:04 | XMS RPT_ITS | CCD ---
Author Organization [facility] Care Team Providers Care Digital Account Coordinator Name Role Phone Pierce Wells MD Primary Care Provider Pierce Wells MD Primary Care Provider Tannhof REMOTE BROADCAST ENGINEER.GATE TECHNICIANYaquelin Unavailable Salo REMOTE BROADCAST ENGINEER.GATE TECHNICIAN, Armani Unavailable Dr. Pierce Wells MD Primary Care Provider [phone] Tyron Valiente MD Emergency Provider [phone] Thierno Campos DO Admit Provider Unavail able Dr. Thierno Campos DO Other Provider Unavail able Dr. Jostin Arriaza DO Attending Provider Dr. Pierce Florian DO Other Provider Dr. Sagrario Casanova MD Attending Provider Dr. Pierce Florian DO Attending Provider Dr. Jostin Arriaza DO Other Provider Dr. Lyle Moise MD Emergency Provider Dr. Thierno Campos DO Attending Provider Unav ailable Dr. Malcom Madsen DO Attending Provider Dr. Malcom Madsen DO Other Provider Bill HUBER, Dr. Zoë Vera Attending Provider Dr. Zoë Khan MD Other Provider [phone] Dr. Jhonny Evans DO Emergency Provider Matthias HUBER, Dr. Alosno Hawkins Attending Provider Campos DO, Dr. Pa Referring Provider Unav ailable Nathan MIX, Dr. Barry Attending Provider Russell HUBER, Dr. Chapa Referring Provider Khadijah HUBER, Dr. Shanks Attending Provider Khadijah HUBER, Dr. Shanks Referring Provider Khadijah HUBER, Dr. Shanks Other Provider Alan MIX, Dr. Hermosillo Attending Provider ARMANI LEONG Referring Unavailable ELDERBROCK, PIERCE D Primary Care Unavailable PREBISH, CHERRI Attending Unavailable Roof MANAGER DESKTOP-C, José Miguel Lara Attending Provider Bay Phillips Attending Unavailable Khadijah, [place] Consulting Unavailable Elderbrock, Pierce Primary Care Unavailable Khadijah, [place] Referring Unavailable Elderbrock, Pierce Referring Unavailable Elderbrock, Pierce Primary Care Unavailable Khadijah, [place] Attending Unavailable Elderbrock, Pierce Referring Unavailable Elderbrock, Pierce Primary Care Unavailable Khadijah, Dimitris Attending Unavailable Elderbrock, Pierce Referring Unavailable Elderbrock, Pierce Primary Care Unavailable Khadijah, Dimitris Attending Unavailable Khadijah, [place] Attending Unavailable Khadijah, Dimitris Consulting Unavailable Khadijah, [place] Referring Unavailable Elderbrock, Pierce Primary Care Unavailable de Thierno Estrada Attending Unavailable Thierno Campos Consulting Unavailable Thierno Campos Admitting Unavailable Elderbrock, Pierce Primary Care Unavailable Tereletsky, Pierce Attending Unavailable Tereletsky, Pierce Consulting Unavailable Roof, José Miguel H Referring Unavailable Roof, José Miguel H Attending Unavailable Elderbrock, Pierce Primary Care Unavailable Khadijah, Dimitris Referring Unavailable Elderbrock, Pierce Primary Care Unavailable Khadijah, Dimitris Attending Unavailable Roof, José Miguel H Attending Unavailable Elderbrock, Pierce Referring Unavailable Elderbrock, Pierce Primary Care Unavailable Jostin Arriaza Attending Unavailable Jostin Arriaza Consulting Unavailable Thierno Campos Admitting Unavailable Thierno Campos Attending Unavailable Russell, Pierce Primary Care Unavailable Thierno Campos Consulting Unavailable Jhonny Evans Attending Unavailabl e Elderbrock, Pierce Primary Care Unavailable de SeanThierno krause Consulting Unavailable Elderbrock, Pierce Primary Care Unavailable de Thierno Estrada Admitting Unavailable Jostin Arriaza Attending Unavailable TeremeritakyPierce Consulting Unavailable de Sean, Thierno Admitting Unavailable Koram, Zoë Vera Attending Unavailable Elderbrock, Pierce Primary Care Unavailable de SeanThierno krause Consulting Unavailable Jopperi, Malcom Consulting Unavailable Jopperi, Malcom Attending Unavailable Jopperi, Malcom Consulting Unavailable de Sean, Thierno Admitting Unavailable Jopperi, Malcom Attending Unavailable Elderbrock, Pierce Primary Care Unavailable de Sean, Thierno Consulting Unavailable Jopperi, Malcom Consulting Unavailable Koram, Zoë Jody Attending Unavailable Koram, Zoë Jody Consulting Unavailable Sagrario Casanova Attending Unavailable Elderbrock, Pierce Primary Care Unavailable ELDERBROCK, PIERCE D Primary Care Unavailable SALO, ARMANI Attending Unavailable ELDERBROCKPIERCE Referring Unavailable ELDERBROCK, PIERCE Cavanaugh Primary Care Unavailable ELDERBROCK, PIERCE Cavanaugh Referring Unavailable ELDERBROCK, PIERCE Cavanaugh Primary Care Unavailable ELDERBROCK, PIERCE Cavanaugh Attending Unavailable ELDERBROCK, PIERCE Cavanaugh Referring Unavailable ELDERBROCK, PIERCE Cavanaugh Primary Care Unavailable ELDERBROCK, PIERCE Cavanaugh Attending Unavailable ELDERBROCK, PIERCE Cavanaugh Referring Unavailable ELDERBROCK, PIERCE Cavanaugh Primary Care Unavailable ELDERBROCK, PIERCE Cavanaugh Primary Care Unavailable LILIAN MCKENNA Attending Unavailable ELDERBROCK, PIERCE Cavanaugh Attending Unavailable ELDERBROCKPIERCE Primary Care Unavailable SELF Referring Unavailable ELDERBROCK, PIERCE Cavanaugh Primary Care Unavailable SALO, ARMANI Referring Unavailable ELDERBROCK, PIERCE Cavanaugh Primary Care Unavailable SALO ARMANI Attending Unavailable ELDERBROCK, PIERCE Cavanaugh Primary Care Unavailable SALO, ARMANI Referring Unavailable ELDERBROCK, PIERCE Cavanaugh Primary Care Unavailable SALO, ARMANI Attending Unavailable ELDERBROCK, PIERCE D Primary Care Unavailable SALO, ARMANI Referring Unavailable ELDERBROCK, PIERCE D Primary Care Unavailable Kareen'JAIMEJENNIFER Attending Unavailable PREBISH, CHERRI Referring Unavailable ELDERBROCK, PIERCE D Primary Care Unavailable O'JAIME JENNIFER Attending Unavailable PREBISH, CHERRI Referring Unavailable Allergies Allergy Classification Reported Allergen(s) Allergy Type Date of Onset Reaction(s) Facility (20 sources) amLODIPine; Translations: [AMLODIPINE] Drug Allergy 6 Other: See Comments [facility] (20 sources) gabapentin; Translations: [GABAPENTIN] Drug Allergy 8 Swelling [facility] (20 sources) Lisinopril; Translations: [LISINOPRIL] Drug Allergy 6 Cough [facility] Work Phone: (20 sources) venlafaxine; Translations: [VENLAFAXINE] Drug Allergy 1 Mental Status Change [facility] (1 source) amLODIPine Drug Allergy 5 [facility] (1 source) gabapentin Drug Allergy 5 [facility] (1 source) Lisinopril Drug Allergy 5 [facility] (1 source) venlafaxine Drug Allergy 5 [facility] Medications Current Medications Medication Drug Class(es) Dates Sig (Normalized) Sig (Original) acetaminophen 500 mg oral tablet (15 sources) Start: 06-25-2025 Acetaminophen 500 mg tablet Active mg PO June 25, 2025 12:00am Start: 05-05-2025 take 2 tablets by mo uth every eight hours as needed acetaminophen (TYLENOL EXTRA STRENGTH) 500 mg tablet Take 2 tablets by mouth every 8 hours as needed for pain. 175 tablet 5 05/05/2025 Active apixaban 5 mg oral tablet (20 sources) Factor Xa Inhibitor Start: 03-05-2025 End: 05-29-2025 take 1 tablet by mouth twice daily apixaban (ELIQUIS) 5 mg tab(s) Take 1 tablet by mouth two times a day. 60 tablet 11 05/29/2025 Active benzonatate 100 mg oral capsule (20 sources) Non-narcotic Antitussive Start: 11-16-2023 End: 12-29-2024 take 1 capsule by mouth three times daily as needed for cough benzonatate (TESSALON PERLES) 100 mg capsule Indications: Acute cough , Influenza Take 1 capsule by mouth three times a day as needed for cough. 30 capsule 2 12/29/2024 Active Start: 11-03-2021 End: 07-23-2023 take 1 capsule by mouth every eight hours as needed benzonatate (TESSALON PERLES) 100 mg capsule Take 1 capsule by mouth three times daily as needed for cough. 21 capsule 1 11/03/2021 07/23/2023 Discontinued (Course of therapy completed) Comment on above: Take 1 capsule by mo ut three times daily as needed for cough. Take 1 capsule by mo uth three times a day as needed for cough. 24 hr buPROPion hydrochloride 300 mg extended release oral tablet (20 sources) Aminoketone Start: take 1 tablet by mouth once daily buPROPion XL (WELLBUTRIN XL) 300 mg 24 hr tablet Indications: Reactive depression Take 1 tablet by mouth once daily. 90 tablet 3 07/23/2025 Active Start: 06-04-2025 End: 07-23-2025 take 1 tablet by mouth once daily buPROPion XL (WELLBUTRIN XL) 150 mg 24 hr tablet Indications: Reactive depression Take 1 tablet by mouth once daily. 90 tablet 1 06/04/2025 07/23/2025 Discontinued Start: 07-23-2023 End: 09-12-2024 take 1 tablet by mouth once daily buPROPion XL (WELLBUTRIN XL) 150 mg 24 hr tablet Indications: Reactive depression Take 1 tablet by mouth once daily. 30 tablet 3 07/23/2023 09/12/2024 Discontinued (Course of therapy completed) Start: 07-03-2022 End: 07-23-2023 take 1 tablet by mouth once daily buPROPion XL (WELLBUTRIN XL) 300 mg 24 hr tablet Indications: Reactive depression Take 1 tablet by mouth once daily. 30 tablet 2 05/27/2023 07/23/2023 Discontinued (Dosage adjustment) Start: 02-23-2022 take 1 tablet by philomena th once daily buPROPion XL (WELLBUTRIN XL) 300 mg 24 hr tablet Indications: Reactive depression Take 1 tablet by mouth once daily. 30 tablet 5 02/23/2022 Active Start: 08-18-2021 take 1 tablet by philomena th once daily buPROPion XL (WELLBUTRIN XL) 300 mg 24 hr tablet Indications: Reactive depression Take 1 tablet by mouth once daily. 30 tablet 5 08/18/2021 Active Start: 04-30-2020 End: 05-16-2021 take 2 tablets by mouth once daily buPROPion XL (WELLBUTRIN XL) 150 mg 24 hr tablet Indications: Reactive depression Take 2 tablets by mouth once daily. 60 tablet 5 04/30/2020 05/16/2021 Discontinued Comment on above: Take 1 tablet by philomena once daily. cyclobenzaprine hydrochloride 10 mg oral tablet (8 sources) Muscle Relaxant Start: 06-25-20 take 5 mg by mouth twice daily as needed Cyclobenzaprine 10 mg tablet Active 5 mg PO TWICE A DAY as needed June 25, 2025 12:00am Start: 06-14-2025 take 0.5 tablet by m out twice daily as needed cyclobenzaprine (FLEXERIL) 10 mg tablet Indications: Muscle pain Take 0.5 tablets by mouth two times a day as needed. 60 tablet 2 06/14/2025 Active dapagliflozin 10 mg oral tablet (5 sources) Sodium-Glucose Cotransporter 2 Inhibitor Start: 05-09-2025 take 1 tablet by mouth once daily Dapagliflozin Propanediol (Farxiga) 10 mg tablet Active 10 mg PO daily 90 May 09, 2025 12:00am escitalopram 20 mg oral tablet (20 sources) Serotonin Reuptake Inhibitor Start: 05-05-2025 End: 05-05-2026 take 1 tablet by mouth once daily escitalopram oxalate (LEXAPRO) 20 mg tablet Indications: Reactive depression Take 1 tablet by mouth once daily. 30 tablet 11 05/05/2025 05/05/2026 Active Start: 07-23-2023 End: 09-12-2025 take 1 tablet by mouth once daily Escitalopram Oxalate 10 mg tablet Discontinued 10 mg PO DAILY March 18, 2025 12:00am May 09, 2025 4:00pm Start: 07-23-2023 End: 07-23-2023 take 0.5 tablet by mouth once daily escitalopram oxalate (LEXAPRO) 20 mg tablet Indications: Reactive depression Take 0.5 tablets by mouth once daily. 30 tablet 2 07/23/2023 07/23/2023 Discontinued Start: 07-03-2022 End: 07-23-2023 take 1 tablet by mouth once daily escitalopram oxalate (LEXAPRO) 20 mg tablet Indications: Reactive depression Take 1 tablet by mouth once daily. 30 tablet 2 05/27/2023 07/23/2023 Discontinued (Adjust Sig - Block E-Cancel) Start: 01-29-2019 End: 02-02-2022 take 1 tablet by mouth once daily escitalopram oxalate (LEXAPRO) 20 mg tablet Indications: Reactive depression Take 1 tablet by mouth once daily 30 tablet 5 02/02/2022 Active Comment on above: Take 1 tablet by philomena th once daily Take 1 tablet by philomena th once daily. Take 0.5 tablets by mouth once daily. finasteride 5 mg oral tablet (20 sources) 5-alpha Reductase Inhibitor Start: 07-23-2023 End: 08-11-2024 take 1 tablet by mouth once daily finasteride (PROSCAR) 5 mg tablet Indications: Benign prostatic hyperplasia with nocturia Take 1 tablet by mouth once daily. 30 tablet 11 08/11/2024 Active Comment on above: Take 1 tablet by philomena th once daily. furosemide 40 mg oral tablet (20 sources) Loop Diuretic Start: 05-05-2025 End: 06-04-2025 take 1 tablet by mouth once daily furosemide (LASIX) 40 mg tablet Take 1 tablet by mouth once daily. 05/05/2025 Active Start: 03-22-2025 End: 05-09-2025 take 1 tablet by mouth twice daily Furosemide 40 mg tablet Discontinued 40 mg PO TWICE A DAY 60 March 22, 2025 12:00am May 09, 2025 4:01pm Start: 03-18-2025 End: 03-22-2025 take 1 tablet by mouth every other day Furosemide (Lasix) 20 mg tablet Discontinued 20 mg PO .COMPLEX March 18, 2025 12:00am March 22, 2025 2:26pm edema 20 mg orally every other day; Start: 03-05-2025 End: 03-18-2025 take 1 tablet by mouth once daily as needed for edema Furosemide (Lasix) 20 mg tablet Discontinued 20 mg PO DAILY as needed for edema 30 March 05, 2025 2:46pm March 18, 2025 8:16pm guanFACINE 1 mg oral tablet (20 sources) Central alpha-2 Adrenergic Agonist Start: 02-29-2016 End: 06-25-2025 take 1 tablet by mouth once daily at bedtime guanFACINE (TENEX) 1 mg tablet Indications: Essential hypertension Take 1 tablet by mouth daily at bedtime. 30 tablet 11 06/04/2025 Active Comment on above: Take 1 tablet by philomena th daily at bedtime. losartan potassium 100 mg oral tablet (20 sources) Angiotensin 2 Receptor Stewart Start: 05-10-2023 End: 05-29-2025 take 1 tablet by mouth once daily losartan (COZAAR) 100 mg tablet Indications: Essential hypertension Take 1 tablet by mouth once daily. 30 tablet 11 05/29/2025 Active Start: 05-20-2022 take 1 tablet by philomena th once daily losartan (COZAAR) 100 mg tablet Indications: Essential hypertension Take 1 tablet by mouth once daily. 30 tablet 11 05/20/2022 Active Start: 05-21-2020 End: 05-16-2021 take 1 tablet by mouth once daily losartan (COZAAR) 100 mg tablet Indications: Essential hypertension Take 1 tablet by mouth once daily. 30 tablet 11 05/16/2021 Active Comment on above: Take 1 tablet by philomena th once daily. melatonin 5 mg oral tablet (20 sources) Start: 06-25-2025 take 1 tablet by mouth at bedtime Melatonin 5 mg tablet,chewable Active 5 mg PO BEDTIME June 25, 2025 12:00am Start: 05-05-2025 take 30 mg by mouth every twenty-four hours as needed melatonin 5 mg chew Take 6 tablets by mouth at bedtime as needed for insomnia. 140 each 5 05/05/2025 Active Start: 07-22-2018 End: 07-23-2023 take 1 capsule by mouth once daily at bedtime melatonin 10 mg cap Take 1 capsule by mouth daily at bedtime. 30 capsule 07/22/2018 07/23/2023 Discontinued (Course of therapy completed) Start: 02-29-2016 End: 05-09-2018 Melatonin 10 MG tablet Discontinued 15 mg PO AT BEDTIME February 29, 2016 12:00am May 09, 2018 4:50pm Comment on above: Take 1 capsule by mo ilh daily at bedtime. methylPREDNISolone (1 source) Corticosteroid Start: 2022 End: 2022 methylPREDNISolone (MEDROL, JOSEE,) 4 mg Dose-Pack Indications: Strain of left shoulder, initial encounter , Musculoskeletal disorder involving upper trapezius muscle Follow dosing instructions, take with food. 21 tablet 0 07/23/2023 07/29/2023 Active Comment on above: Follow dosing instru ctions, take with food. minoxidil 10 mg oral tablet (20 sources) Arteriolar Vasodilator Start: 2019 End: 2023 take 2 tablets by mouth once daily minoxidil (LONITEN) 10 mg tablet Indications: Essential hypertension Take 2 tablets by mouth once daily. 60 tablet 09/12/2024 Active Start: 09-26-2019 take 1 tablet by philomena th once daily Minoxidil 10 MG tablet Active 20 mg PO DAILY September 26, 2019 1:00am HAIR GROWTH Start: 11-19-2013 End: 05-09-2018 take 1 tablet by mouth once daily Minoxidil 2.5 MG tablet Discontinued 10 mg PO DAILY November 19, 2013 1:00am May 09, 2018 4:50pm Comment on above: Take 2 tablets by mo uth once daily. 24 hr NIFEdipine 60 mg extended release oral tablet (20 sources) Dihydropyridine Calcium Channel Stewart Start: take 1 tablet by mouth once daily Nifedipine 60 mg tablet extended release Active 60 mg PO DAILY 90 June 04, 2025 12:00am Start: 11-09-2023 End: 06-04-2025 take 1 tablet by mouth once daily NIFEdipine ER (PROCARDIA XL) 30 mg 24 hr tablet Take 1 tablet by mouth once daily. 30 tablet 05/29/2025 Active Comment on above: Take 1 tablet by philomena once daily. omeprazole 20 mg delayed release oral capsule (20 sources) Proton Pump Inhibitor Start: 06-13-20 End: 05-29-20 take 1 capsule by mouth once daily before breakfast omeprazole (PRILOSEC) 20 mg capsule Indications: Gastroesophageal reflux disease without esophagitis Take 1 capsule by mouth daily before breakfast. 1/2 hr before meal. 30 capsule 05/29/2025 Active Start: 04-30-2020 End: 07-23-2023 take 1 capsule by mouth once daily before breakfast omeprazole (PRILOSEC) 20 mg capsule Indications: Gastroesophageal reflux disease without esophagitis Take 1 capsule by mouth daily before breakfast. 1/2 hr before meal. 30 capsule 07/23/2023 Active Start: 12-26-2016 End: 05-09-2018 take 1 capsule by mouth once daily Omeprazole 40 MG capsule Discontinued 40 mg PO DAILY December 26, 2016 1:00am May 09, 2018 4:50pm Comment on above: Take 1 capsule by mo uth daily before breakfast. 1/2 hr before meal. oseltamivir 75 mg oral capsule (2 sources) Neuraminidase Inhibitor Start: 12-29-19 End: 01-03-20 take 1 capsule by mouth twice daily oseltamivir (TAMIFLU) 75 mg capsule Indications: Acute cough , Influenza Take 1 capsule by mouth two times a day for 5 days. 10 capsule 12/29/2024 01/03/2025 Active tamsulosin hydrochloride 0.4 mg oral capsule (20 sources) alpha-Adrenergic Stewart Start: 06-13-20 End: 06-04-20 take 1 capsule by mouth once daily at bedtime tamsulosin (FLOMAX) 0.4 mg Indications: Benign prostatic hyperplasia with nocturia Take 1 capsule by mouth daily at bedtime. 30 capsule 11 06/04/2025 Active Start: 05-10-2023 take 1 capsule by mo [facility] once daily at bedtime tamsulosin (FLOMAX) 0.4 mg Indications: Benign prostatic hyperplasia with nocturia Take 1 capsule by mouth daily at bedtime. 30 capsule 11 05/10/2023 Active Start: 11-22-2020 End: 05-04-2022 take 1 capsule by mouth once daily at bedtime tamsulosin (FLOMAX) 0.4 mg Indications: Benign prostatic hyperplasia with nocturia Take 1 capsule by mouth daily at bedtime. 30 capsule 11 05/04/2022 Active Comment on above: Take 1 capsule by mo [facility] daily at bedtime. Completed/Discontinued Medications Medication Drug Class(es) Dates Sig (Normalized) Sig (Original) amLODIPine 5 mg oral tablet (1 source) Dihydropyridine Calcium Channel Stewart Start: 07-23-2023 take 1 tablet by mouth once daily amLODIPine (NORVASC) 5 mg tablet Indications: Essential hypertension Take 1 tablet by mouth once daily. 30 tablet 5 07/23/2023 Active Comment on above: Take 1 tablet by [facility] once daily. amoxicillin 500 mg oral capsule (9 sources) Penicillin-class Antibacterial Start: 05-09-2018 End: 05-23-2018 take 2 capsules by mouth twice daily Amoxicillin 500 mg capsule Discontinued 1000 mg PO TWICE A DAY 56 14 0 May 09, 2018 12:00am May 22, 2018 12:00am May 23, 2018 12:06am aspirin 81 mg delayed release oral tablet (20 sources) Platelet Aggregation Inhibitor, Nonsteroidal Anti-inflammatory Drug Start: 05-05-2025 End: 06-04-2025 take 1 tablet by mouth once daily aspirin, enteric coated (ECOTRIN LOW STRENGTH) 81 mg EC tablet Take 1 tablet by mouth once daily. 30 tablet 11 05/05/2025 06/04/2025 Discontinued (Course of therapy completed) Start: 03-05-2025 End: 05-09-2025 take 1 tablet by mouth once daily Aspirin 81 mg Tablet,Chewable Discontinued 81 mg PO DAILY@0800 30 30 2 March 05, 2025 12:00am May 09, 2025 4:38pm Start: 11-19-2013 End: 03-05-2025 take 1 tablet by mouth once daily Aspirin 325 MG tablet Discontinued 325 mg PO DAILY@0800 November 19, 2013 1:00am March 05, 2025 11:54am [facility] End: 06-04-2025 take 1 tablet by mouth once daily Aspirin 81 mg tab Take 81 mg by mouth once daily. 06/04/2025 Discontinued (Course of therapy completed) Comment on above: Take 325 mg by mouth once daily. atenolol 100 mg oral tablet (20 sources) beta-Adrenergic Stewart Start: 03-05-20 End: 06-04-20 take 1 tablet by mouth once daily Atenolol 100 mg tablet Discontinued 100 mg PO DAILY 90 3 May 24, 2025 12:45pm June 04, 2025 10:05am atenolol 100 mg / chlorthalidone 25 mg oral tablet (20 sources) Thiazide-like Diuretic, beta-Adrenergic Stewart Start: 11-19-19 End: 03-18-20 Atenolol-Chlorthali done 100-25 mg tablet Discontinued 1 {tbl} PO DAILY March 18, 2025 12:00am March 18, 2025 8:14pm Comment on above: Take 1 tablet by philomena th once daily. clonazePAM 0.5 mg oral tablet (9 sources) Benzodiazepine Start: 01-30-20 End: 03-02-20 take 1 tablet by mouth at bedtime Clonazepam 0.5 MG tablet Discontinued 0.5 mg PO AT BEDTIME January 29, 2019 12:00am March 02, 2025 10:12pm anxiety gabapentin 100 mg oral capsule (9 sources) Anti-epileptic Agent Start: 01-14-20 15 End: 05-09-20 take 1 capsule by mouth twice daily Gabapentin 100 MG capsule Discontinued 100 mg PO TWICE A DAY January 13, 2015 1:00am May 09, 2018 4:51pm ibuprofen 800 mg oral tablet (20 sources) Nonsteroidal Anti-inflammatory Drug Start: 12-02-19 End: 03-05-20 take 1 tablet by mouth twice daily as needed for pain Ibuprofen 800 mg tablet Discontinued 800 mg PO TWICE DAILY NEEDED as needed for fever or pain March 02, 2025 12:00am March 05, 2025 11:54am Start: 05-10-2023 take 1 tablet by philomena th twice daily at mealtime as needed ibuprofen (MOTRIN) 800 mg tablet Indications: Chronic bilateral low back pain without sciatica TAKE ONE TABLET BY MOUTH TWICE DAILY WITH MEALS NEEDED 60 tablet 5 05/10/2023 Active Start: 05-20-2022 End: 12-12-2022 take 1 tablet by mouth twice daily at mealtime as needed ibuprofen (MOTRIN) 800 mg tablet Indications: Chronic bilateral low back pain without sciatica TAKE ONE TABLET BY MOUTH TWICE DAILY WITH MEALS NEEDED 60 tablet 5 12/12/2022 Active Start: 05-21-2021 take 1 tablet by philomena th twice daily at mealtime as needed ibuprofen (MOTRIN) 800 mg tablet Indications: Chronic bilateral low back pain without sciatica TAKE ONE TABLET BY MOUTH TWICE DAILY WITH MEALS NEEDED 60 tablet 5 05/21/2021 Active Start: 10-21-2020 End: 04-26-2021 take 1 tablet by mouth twice daily at mealtime as needed ibuprofen (MOTRIN) 800 mg tablet Indications: Chronic bilateral low back pain without sciatica TAKE ONE TABLET BY MOUTH TWICE DAILY WITH MEALS NEEDED 60 tablet 5 10/21/2020 04/26/2021 Discontinued Start: 11-19-2013 End: 09-27-2019 Ibuprofen 600 MG tablet Discontinued 800 mg PO TWICE A DAY November 19, 2013 1:00am September 27, 2019 11:49am pain Comment on above: TAKE ONE TABLET BY M OUT TWICE DAILY WITH MEALS NEEDED levoFLOXacin 750 mg oral tablet (9 sources) Quinolone Antimicrobial Start: 09-18-20 End: 05-09-20 take 1 tablet by mouth once daily Levofloxacin 750 MG tablet Discontinued 750 mg PO DAILY 6 0 September 18, 2017 1:00am May 09, 2018 4:50pm 12 hr orphenadrine citrate 100 mg extended release oral tablet (9 sources) Muscle Relaxant Start: 11-30-19 End: 03-02-20 take 1 tablet by mouth twice daily as needed for muscle spasms Orphenadrine Citrate 100 MG tablet Discontinued 100 mg PO TWICE A DAY as needed for Muscle Spasm 14 November 30, 2019 10:29pm March 02, 2025 10:14pm potassium chloride 20 meq extended release oral tablet (20 sources) Start: 05-09-20 End: 05-09-20 take 1 tablet by mouth once daily Potassium Chloride 20 mEq tablet extended release Discontinued 20 meq PO daily May 09, 2025 4:01pm May 09, 2025 4:38pm Start: 05-05-2025 End: 06-04-2025 take 1 tablet by mouth once daily potassium chloride ER (KLOR-CON) 20 mEq tablet Take 1 tablet by mouth once daily. 05/05/2025 06/04/2025 Discontinued (Course of therapy completed) Start: 03-30-2025 End: 05-05-2025 take 1 tablet by mouth twice daily potassium chloride ER (KLOR-CON) 20 mEq tablet Take 1 tablet by mouth two times a day. 60 tablet 03/30/2025 05/05/2025 Discontinued (Adjust Sig - Block E-Cancel) Start: 03-22-2025 End: 05-09-2025 take 1 tablet by mouth twice daily Potassium Chloride 20 mEq tablet extended release Discontinued 20 meq PO TWICE A DAY 60 2 March 22, 2025 12:00am May 09, 2025 4:01pm Start: 01-13-2015 End: 03-02-2025 take 1 tablet by mouth once daily Potassium Chloride 10 MEQ tablet,ER particles/crystals Discontinued 10 meq PO DAILY January 13, 2015 1:00am March 02, 2025 10:14pm supplement predniSONE 10 mg oral tablet (17 sources) Start: 06-04-2025 End: 06-16-2025 predniSONE (DELTASONE) 10 mg tablet Indications: Chronic right-sided low back pain without sciatica Take 6 tabs for 3 days, then 4 tabs for 3 days, then 2 tabs for 3 days then 1 tab for 3 days with food. 39 tablet 06/04/2025 06/16/2025 Start: 12-29-2024 take 2 tablets by mo [facility] once daily predniSONE (DELTASONE) 20 mg tablet Indications: Acute cough , Influenza Take 2 tablets by mouth once daily. 10 tablet 12/29/2024 Active Start: 09-18-2017 End: 05-09-2018 take 4 tablets by mouth once daily, then take 3 tablets by mouth once daily, then take 2 tablets by mouth once daily, then take 1 tablet by mouth once daily, then take 1 tablet by mouth every other day Prednisone 10 MG tablet Discontinued 10 mg PO DIRECTED 33 0 September 18, 2017 1:00am May 09, 2018 4:50pm Take 4 tablets daily for 3 days, then 3 daily for 3 days, then 2 daily for 3 days, then 1 a day for 3 days then 1 QOD for 3 doses. traMADol hydrochloride 50 mg oral tablet (9 sources) Opioid Agonist Start: 11-30-2019 End: 12-03-2019 take 1 tablet by mouth every four hours as needed for pain Tramadol 50 MG tablet Discontinued 50 mg PO EVERY 4 HOURS NEEDED as needed for Pain 16 3 November 30, 2019 1:00am December 02, 2019 1:00am December 03, 2019 1:08am valsartan 320 mg oral tablet (9 sources) Angiotensin 2 Receptor Stewart Start: 06-09-2016 End: 05-09-2018 take 1 tablet by mouth once daily Valsartan 320 MG tablet Discontinued 320 mg PO DAILY June 09, 2016 12:00am May 09, 2018 4:50pm 24 hr venlafaxine 150 mg extended release oral capsule (1 source) Serotonin and Norepinephrine Reuptake Inhibitor Start: 03-24-2021 End: 04-21-2021 take 1 capsule by mouth once daily venlafaxine ER (EFFEXOR XR) 150 mg 24 hr capsule Indications: Anxiety , Reactive depression Take 1 capsule by mouth once daily. 30 capsule 11 03/24/2021 04/21/2021 Discontinued Problems Active Problems Problem Classification Problem Date Documented Da te Episodic/Chronic Administrative/social admission (2 sources) Food insecurity; Translations: [Food insecurity] 07-23-2025 Episodic Anxiety disorders (20 sources) Anxiety; Translations: [Anxiety disorder, unspecified] Onset: 7 07-18-2017 Chronic Cardiac dysrhythmias (20 sources) Atrial fibrillation; Translations: [Unspecified atrial fibrillation] Onset: 5 03-22-2025 Chronic Congestive heart failure; nonhypertensive (20 sources) Congestive heart failure; Translations: [Heart failure, unspecified] Onset: 5 03-02-2025 Chronic Esophageal disorders (9 sources) Gastroesophageal reflux disease without esophagitis; Translations: [Gastro-esophageal reflux disease without esophagitis] Onset: 4 Chronic Essential hypertension (20 sources) Essential hypertension; Translations: [Essential (primary) hypertension] Onset: 6 08-31-2016 Chronic Genitourinary symptoms and ill-defined conditions (1 source) Nocturia; Translations: [Benign prostatic hyperplasia with nocturia] Onset: 5 Episodic Hyperplasia of prostate (6 sources) Nocturia due to benign prostatic hypertrophy; Translations: [Benign prostatic hyperplasia with lower urinary tract symptoms] Onset: 5 Chronic Hypertension with complications and secondary hypertension (18 sources) Hypertensive urgency ; Translations: [Hypertensive urgency] Onset: 5 03-18-2025 Chronic Malaise and fatigue (1 source) Fatigue; Translations: [Other fatigue] 06-18-2025 Episodic Mood disorders (11 sources) Reactive depression (situational); Translations: [Major depressive disorder, single episode, unspecified] Onset: 5 Chronic Osteoarthritis (5 sources) Primary gonarthrosis, bilateral; Translations: [Bilateral primary osteoarthritis of knee] Onset: 5 07-23-2025 Chronic Other and ill-defined heart disease (18 sources) Cardiomegaly; Translations: [Cardiomegaly] 03-03-2025 Chronic Other and ill-defined heart disease (1 source) Cardiomegaly; Translations: [Cardiomegaly] Onset: 5 Chronic Other bone disease and musculoskeletal deformities (9 sources) Disorder of bone; Translations: [Disorder of bone, unspecified] 05-09-2018 Episodic Other connective tissue disease (1 source) Musculoskeletal disorder of the neck; Translations: [Disorder of muscle, unspecified] 07-23-2023 Episodic Other connective tissue disease (1 source) Myalgia, unspecified site; Translations: [Muscle pain] Onset: 5 Episodic Other diseases of veins and lymphatics (18 sources) Lymphedema; Translations: [Lymphedema, not elsewhere classified] 03-03-2025 Chronic Other diseases of veins and lymphatics (1 source) Lymphedema, not elsewhere classified; Translations: [Lymphedema, not elsewhere classified] Onset: Chronic Other gastrointestinal disorders (6 sources) Diarrhea; Translations: [Diarrhea, unspecified] 03-25-2025 Episodic Other injuries and conditions due to external causes (1 source) Injury of left knee; Translations: [Unspecified injury of left lower leg, initial encounter] 04-17-2021 Episodic Other lower respiratory disease (1 source) Cough; Translations: [Acute cough] 12-29-2024 Episodic Other lower respiratory disease (9 sources) Dyspnea on exertion; Translations: [Other forms of dyspnea] 09-27-2019 Episodic Other lower respiratory disease (20 sources) Respiratory insufficiency; Translations: [Other abnormalities of breathing] 03-02-2025 Episodic Other lower respiratory disease (18 sources) Hypoxia; Translations: [Hypoxemia] 03-02-2025 Episodic Other lower respiratory disease (10 sources) Dyspnea; Translations: [Dyspnea, unspecified] 03-18-2025 Episodic Other lower respiratory disease (1 source) Snoring; Translations: [Snoring] 06-18-2025 Episodic Other nervous system disorders (3 sources) Other chronic pain; Translations: [Chronic right-sided low back pain without sciatica] Onset: 4 Chronic Other nutritional; endocrine; and metabolic disorders (20 sources) Morbid obesity; Translations: [Morbid (severe) obesity due to excess calories] Onset: 8 01-21-2018 Chronic Other nutritional; endocrine; and metabolic disorders (20 sources) Obesity caused by energy imbalance; Translations: [Morbid (severe) obesity due to excess calories] Onset: 8 01-21-2018 Chronic Other nutritional; endocrine; and metabolic disorders (20 sources) Alveolar hypoventilation; Translations: [Morbid (severe) obesity with alveolar hypoventilation] 03-02-2025 Chronic Other nutritional; endocrine; and metabolic disorders (17 sources) Body mass index 40+ - severely obese; Translations: [Morbid (severe) obesity due to excess calories] 03-18-2025 Chronic Other nutritional; endocrine; and metabolic disorders (6 sources) Hypomagnesemia; Translations: [Hypomagnesemia] 03-25-2025 Chronic Other nutritional; endocrine; and metabolic disorders (2 sources) Morbid (severe) obesity due to excess calories; Translations: [Morbid (severe) obesity due to excess calories] Onset: 5 Chronic Other nutritional; endocrine; and metabolic disorders (2 sources) Body mass index (BMI) 50.0-59.9, adult; Translations: [Body mass index [BMI] 50.0-59.9, adult] Onset: 5 Chronic Other nutritional; endocrine; and metabolic disorders (1 source) Morbid (severe) obesity with alveolar hypoventilation; Translations: [Morbid (severe) obesity with alveolar hypoventilation] Onset: 5 Chronic Other upper respiratory disease (9 sources) Acute bronchospasm; Translations: [Acute bronchospasm] 03-02-2025 Episodic Mignon-; endo-; and myocarditis; cardiomyopathy (except that caused by tuberculosis or sexually transmitted disease) (18 sources) Pericardial effusion; Translations: [Pericardial effusion] 03-03-2025 Episodic Sprains and strains (10 sources) Shoulder strain; Translations: [Strain of unspecified muscle, fascia and tendon at shoulder and upper arm level, left arm, initial encounter] 07-23-2023 Episodic Superficial injury; contusion (20 sources) Contusion of right chest wall; Translations: [Contusion of right front wall of thorax, initial encounter] 03-13-2020 Episodic Unclassified (2 sources) Chronic right-sided low back pain without sciatica; Translations: [Chronic right-sided low back pain without sciatica] Onset: 4 Unclassified (1 source) Degeneration of intervertebral disc of lumbar region with discogenic back pain and lower extremity pain; Translations: [Degeneration of intervertebral disc of lumbar region with discogenic back pain and lower extremity pain] Onset: 5 Unclassified (1 source) Other pericardial effusion (noninflammatory); Translations: [Other pericardial effusion (noninflammatory)] Onset: 5 Unclassified (1 source) Chronic bilateral low back pain without sciatica; Translations: [Chronic bilateral low back pain without sciatica] Onset: 5 Unclassified (1 source) Food insecurity; Translations: [Food insecurity] Onset: 5 Unclassified (1 source) Acute cough; Translations: [Acute cough] Onset: 5 Past or Other Problems Problem Classification Problem Date Documented Da te Episodic/Chronic Diabetes mellitus without complication (20 sources) Increased glucose level; Translations: [Other abnormal glucose] Onset: 5 07-23-2023 Episodic E Codes: Adverse effects of medical drugs (1 source) Adverse effect of carbonic-anhydrase inhibitors, benzothiadiazides and other diuretics, initial encounter; Translations: [Diuretic-induced hypokalemia] Onset: 4 Episodic Fluid and electrolyte disorders (20 sources) Drug-induced hypokalemia; Translations: [Hypokalemia] Onset: 4 02-22-2014 Episodic Immunizations and screening for infectious disease (1 source) Encounter for immunization; Translations: [Encounter for immunization] Onset: 4 Episodic Influenza (2 sources) Influenza; Translations: [Influenza due to unidentified influenza virus with other respiratory manifestations] Onset: 5 12-29-2024 Episodic Other and unspecified benign neoplasm (20 sources) Lipoma (clinical); Translations: [Benign lipomatous neoplasm, unspecified] Onset: 1 06-22-2011 Episodic Other connective tissue disease (20 sources) Digital mucous cyst; Translations: [Ganglion, unspecified hand] Onset: 6 01-13-2016 Episodic Other gastrointestinal disorders (1 source) Diarrhea, unspecified; Translations: [Diarrhea, unspecified] Onset: 5 Episodic Other lower respiratory disease (3 sources) Shortness of breath; Translations: [Shortness of breath] Onset: 5 Episodic Other lower respiratory disease (1 source) Other abnormalities of breathing; Translations: [Other abnormalities of breathing] Onset: 5 Episodic Other lower respiratory disease (1 source) Dyspnea, unspecified; Translations: [Dyspnea, unspecified] Onset: 5 Episodic Other screening for suspected conditions (not mental disorders or infectious disease) (20 sources) Patient encounter status; Translations: [Encounter for screening for malignant neoplasm of colon] Onset: 4 07-23-2023 Episodic Other skin disorders (20 sources) Skin tag; Translations: [Other hypertrophic disorders of the skin] Onset: 1 06-01-2011 Episodic Other skin disorders (20 sources) Sebaceous cyst of skin; Translations: [Sebaceous cyst] Onset: 1 06-01-2011 Episodic Other upper respiratory disease (1 source) Acute bronchospasm; Translations: [Acute bronchospasm] Onset: 5 Episodic Skin and subcutaneous tissue infections (19 sources) Cellulitis of abdominal wall ; Translations: [Cellulitis of abdominal wall] Onset: 5 03-03-2025 Episodic Spondylosis; intervertebral disc disorders; other back problems (20 sources) Sciatica; Translations: [Sciatica, unspecified side] Onset: 4 03-05-2014 Episodic Substance-related disorders (20 sources) Tobacco user; Translations: [Nicotine dependence, unspecified, uncomplicated] Onset: 1 Resolved: 7 06-29-2017 Chronic Results Test Name Value Interpretation Reference Range Facility CNTHERAPYon 07-31-2025 CNTHERAPY OT/PT/Speech Visit ( PTWS) -- JOSÉ MIGUEL YOUNG SR. ([id number]) 1965 M Date Time Provider Department 07/31/25 11:15 AM JENNIFER EUBANKS PTUMER Date Time Provider Department Center 07/31/2025 11:15 AM [id number] EUBANKS PTUMER [place] Reason for Visit: Physical Therapy [503] Primary Visit Diagnosis:Chronic right-sided low back pain without sciatica [M54.50, G89.29] Allergies As of Date: 07/31/2025 Noted Allergy Reaction EFFEXOR (VENLAFAXINE) 06/17/2021 1 - Mental Status Change Comments: Suicidal thoughts GABAPENTIN 11/13/2017 7 - Swelling Comments: Leg swelling AMLODIPINE 06/08/2016 14 - Other: See Comments Comments: leg swelling LISINOPRIL 02/13/2016 3 - Cough Date Reviewed: 07/23/2025 Reviewed by: Eden Coppola LPN - Fully Assessed Prescriptions as of 07/31/2025 - buPROPion XL (WELLBUTRIN XL) 300 mg 24 hr tablet Take 1 tablet by mouth once daily. - cyclobenzaprine (FLEXERIL) 10 mg tablet Take 0.5 tablets by mouth two times a day as needed. - tamsulosin (FLOMAX) 0.4 mg Take 1 capsule by mouth daily at bedtime. - guanFACINE (TENEX) 1 mg tablet Take 1 tablet by mouth daily at bedtime. - apixaban (ELIQUIS) 5 mg tab(s) Take 1 tablet by mouth two times a day. - omeprazole (PRILOSEC) 20 mg capsule Take 1 capsule by mouth daily before breakfast. 1/2 hr before meal. - losartan (COZAAR) 100 mg tablet Take 1 tablet by mouth once daily. - NIFEdipine ER (PROCARDIA XL) 30 mg 24 hr tablet Take 1 tablet by mouth once daily. - furosemide (LASIX) 40 mg tablet Take 1 tablet by mouth once daily. - escitalopram oxalate (LEXAPRO) 20 mg tablet Take 1 tablet by mouth once daily. - acetaminophen (TYLENOL EXTRA STRENGTH) 500 mg tablet Take 2 tablets by mouth every 8 hours as needed for pain. - melatonin 5 mg chew Take 6 tablets by mouth at bedtime as needed for insomnia. - atenolol (TENORMIN) 100 mg tablet Take 100 mg by mouth once daily. - minoxidil (LONITEN) 10 mg tablet Take 2 tablets by mouth once daily. - finasteride (PROSCAR) 5 mg tablet Take 1 tablet by mouth once daily. 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 and low dose aspirin Jennifer Timmons RN Electrical Appliance Preparer: Therapy (PT/OT/Speech/Resp) ID: [id number] 07/31/2025 11:40 AM Author: JENNIFER EUBANKS Signed by JENNIFER EUBANKS PT on 07/31/2025 at 11:40 AM Document text: Program_ID:[id number] Access Code: [email or web address] URL: [email or web address] Date: 07-31-2025 Prepared By: Jennifer Eubanks Program Notes Exercises - Seated Lumbar Flexion Stretch - 1 x daily - 7 x weekly - 4 sets - 10 reps - Seated Transversus Abdominis Bracing - 2-3 x daily - 7 x weekly - 2 sets - 10 reps - Seated Side Stretch - 1 x daily - 7 x weekly - 3 sets - 1 reps - Standing Quad Set - 1 x daily - 7 x weekly - 2 sets - 10 reps - Standing Transverse Abdominis Contraction - 1 x daily - 7 x weekly - 2 sets - 10 reps Normal [facility] THERAPY NTon 07-31-2025 THERAPY NT HNO ID: [id number] Author: JENNIFER EUBANKS, PT Service: ? Author Type: Physical Therapist Type: Therapy (PT/OT/Speech/Resp) Filed: 07/31/2025 11:40 Note Text: Program_ID:[id number] Access Code: [email or web address] URL: [email or web address] Date: 07-31-2025 Prepared By: Jennifer Eubanks Program Notes Exercises - Seated Lumbar Flexion Stretch - 1 x daily - 7 x weekly - 4 sets - 10 reps - Seated Transversus Abdominis Bracing - 2-3 x daily - 7 x weekly - 2 sets - 10 reps - Seated Side Stretch - 1 x daily - 7 x weekly - 3 sets - 1 reps - Standing Quad Set - 1 x daily - 7 x weekly - 2 sets - 10 reps - Standing Transverse Abdominis Contraction - 1 x daily - 7 x weekly - 2 sets - 10 reps Normal [facility] CNOVon 07-23-2025 CNOV Office Visit (FAMPWS ) -- JOSÉ MIGUEL YOUNG SR. ([id number]) 1965 M Date Time Provider Department 07/23/25 10:40 AM ARMANI LEONG During your visit today, we recorded the following information about you: Pulse Respiration Blood pressure Weight 69/minute 18/minute 140/88 147.8 kg Armani Leong APRN.GATE TECHNICIAN 07/23/2025 11:03 AM Signed Chief Complaint Patient presents with: Follow Up: 6 week follow up HPI José Miguel Young Sr. is a 59 year old male who presents here today for above reason. José Miguel Young is a 59-year-old male with a history of bilateral knee pain and depression, presenting for follow-up. José Miguel reports worsening bilateral knee pain, which he attributes to a change in medication from ibuprofen to Tylenol. He notes that ibuprofen previously managed his pain effectively, but Tylenol does not provide the same relief. He also mentions that his knees began hurting more after fluid was removed from them. He describes his knees as making noise when he walks and states that they "seem to be very nice to move off of him." He has been performing exercises recommended by his physical therapist, Jennifer, but continues to experience pain. José Miguel also reports that his depression has improved slightly since his Lexapro dosage was increased from 10 mg to 20 mg and Wellbutrin 150 mg was added once daily, but he still struggles with his mood. He mentions financial difficulties and challenges with maintaining a healthy diet, which he believes contribute to his depression. He has lost 6 lbs, bringing his weight down to 319 lbs, but finds it difficult to afford healthy food options. He reports that his sleep has improved, stating, I've been sleeping. I got up once last night." José Miguel also mentions that his blood pressure has been elevated, with a recent reading of 142/70 mmHg. He notes that his blood pressure was better controlled when he was eating a healthier diet, with readings around 127-130 mmHg. He finds it challenging to maintain a healthy diet due to financial constraints and reports that his blood pressure increases when he consumes high-sodium foods. He can tell when his blood pressure is elevated because he feels tight to come." Past medical history, appointments, medications, allergies reviewed. EXAM: BP 140/88 Pulse 69 Resp 18 Wt (!) 147.8 kg (325 lb 12.8 oz) SpO2 95% BMI 50.27 kg/m? General Appearance: Well appearing, alert, in no acute distress, well-hydrated, well nourished. and Obese. Lungs: Lungs clear to auscultation. No wheezing, rhonchi, rales.. Heart: RRR without murmur, gallop, or rubs. No ectopy. Musculoskeletal: bilat knees: exam difficult due to patient's immobility; grinding present in both knees (right greater than left) with flexion and extension. . Assessment and Plan 1. Chronic bilateral low back pain without sciatica (M54.50) 2. Primary osteoarthritis of both knees (M17.0) Chronic bilateral low back pain and knee osteoarthritis with worsening symptoms since transition from ibuprofen to Tylenol. Reviewed 2020 knee X-rays showing marked degenerative changes and loose bodies. - Order updated bilateral knee X-rays. - Refer to orthopedics for evaluation and possible intra-articular corticosteroid injections. - Continue Tylenol for pain management. - Follow-up in 3 months. 3. 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 - Increase Wellbutrin to 300 mg daily (extended-release); instructed patient that tablets may be taken together or divided between morning and evening. - Follow-up in 3 months. 4. Essential hypertension (I10) Blood pressure readings range from 127/70 to 142/80; dietary challenges noted. - Continue current antihypertensive regimen. - Advised patient to avoid high-sodium foods such as hot dogs and pasta. - Follow-up in 3 months. 5. Food insecurity (Z59.41) Patient reports difficulty affording healthy food options. - Refer to social work for assistance with food insecurity. Armani Leong APRN.GATE TECHNICIAN RTO in 3 months, sooner if needed. This note was partly generated using [employer] voice recognition dictation and may contain some misspelled or inaccurate words missed on review. Recording using [employer] software for draft documentation of the visit was discussed with the patient/authorized service center representative; all questions welcomed and answered. Patient/authorized service center representative agreed to proceed Allergies As of Date: 07/23/2025 Noted Allergy Reaction EFFEXOR (VENLAFAXINE) 06/17/2021 1 - Mental Status Change Comments: Suicidal thoughts GABAPENTIN 11/13/2017 7 - Swelling Comments: Leg swelling AMLODIPINE 06/08/2016 14 - Other: See Comments Comments: leg swelling LISINOPRIL 02/13/2016 3 - Cough Date Reviewed: 07/23/2025 Reviewed by: Kassy Coppola (more content not included)... Normal [facility] CNPNon 07-23-2025 CNPN Telephone (CARLOS) -- JOSÉ MIGUEL YOUNG SR. ([id number]) 1965 M Date Time Provider Department 07/23/25 MUNA ANDRADE During your visit today, we recorded the following information about you: Muna Andrade MSW 07/23/2025 1:10 PM Signed Patient reports struggling with being able to eat fruit and vegetables due to cost. Patient notes that he has not been able to work the past 5 months due to health issues. Reports that he does receive food stamps, but tries to make those last by eating foods that are not fresh. Sw notes that she has [facility] [employer] with food resources. Cordelia also will see if [facility] [employer] still has discount [employer] coupons. Patient turns 60 next week. Cordelia will compile information and mail to patient home. Allergies As of Date: 07/23/2025 Noted Allergy Reaction EFFEXOR (VENLAFAXINE) 06/17/2021 1 - Mental Status Change Comments: Suicidal thoughts GABAPENTIN 11/13/2017 7 - Swelling Comments: Leg swelling AMLODIPINE 06/08/2016 14 - Other: See Comments Comments: leg swelling LISINOPRIL 02/13/2016 3 - Cough Date Reviewed: 07/23/2025 Reviewed by: Eden Coppola LPN - Fully Assessed Prescriptions as of 07/25/2025 - buPROPion XL (WELLBUTRIN XL) 300 mg 24 hr tablet Take 1 tablet by mouth once daily. - cyclobenzaprine (FLEXERIL) 10 mg tablet Take 0.5 tablets by mouth two times a day as needed. - tamsulosin (FLOMAX) 0.4 mg Take 1 capsule by mouth daily at bedtime. - guanFACINE (TENEX) 1 mg tablet Take 1 tablet by mouth daily at bedtime. - apixaban (ELIQUIS) 5 mg tab(s) Take 1 tablet by mouth two times a day. - omeprazole (PRILOSEC) 20 mg capsule Take 1 capsule by mouth daily before breakfast. 1/2 hr before meal. - losartan (COZAAR) 100 mg tablet Take 1 tablet by mouth once daily. - NIFEdipine ER (PROCARDIA XL) 30 mg 24 hr tablet Take 1 tablet by mouth once daily. - furosemide (LASIX) 40 mg tablet Take 1 tablet by mouth once daily. - escitalopram oxalate (LEXAPRO) 20 mg tablet Take 1 tablet by mouth once daily. - acetaminophen (TYLENOL EXTRA STRENGTH) 500 mg tablet Take 2 tablets by mouth every 8 hours as needed for pain. - melatonin 5 mg chew Take 6 tablets by mouth at bedtime as needed for insomnia. - atenolol (TENORMIN) 100 mg tablet Take 100 mg by mouth once daily. - minoxidil (LONITEN) 10 mg tablet Take 2 tablets by mouth once daily. - finasteride (PROSCAR) 5 mg tablet Take 1 tablet by mouth once daily. 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 and low dose aspirin Jennifer Timmons RN Problem List As Of Date 07/23/2025 Noted Resolved Essential hypertension [I10] Tobacco use disorder [F17.200] 01/01/2011 06/29/2017 Cutaneous skin tags [L91.8] 06/01/2011 Sebaceous cyst [L72.3] 06/01/2011 Lipoma of unspecified site [D17.9] 06/22/2011 Diuretic-induced hypokalemia [E87.6, T50.2X5A] 02/22/2014 Sciatica [M54.30] 03/05/2014 Chronic right-sided low back pain without sciat*03/05/2014 Digital mucous cyst [M67.449] 01/13/2016 Anxiety [F41.9] 07/18/2017 Morbid (severe) obesity due to excess calories *01/21/2018 Encounter Status:Closed by MUNA ANDRADE on 07/25/25 Normal [facility] XR KNEE 4V AP/PA/LAT/MERCH B ILon 07-23-2025 XR KNEE 4V AP/PA/LAT/MERCH FABIO * * *Final Report* * * DATE OF EXAM: Jul 23 2025 11:39AM WOX [id number] - XR KNEE 4V AP/PA/LAT/MERCH FABIO / PROCEDURE REASON: Primary osteoarthritis of both knees * * * * Physician Interpretation * * * * KNEE RADIOGRAPHS - BILATERAL HISTORY: Primary osteoarthritis of both knees TECHNOLOGIST PROVIDED HISTORY (if applicable): Primary osteoarthritis of both knee TECHNIQUE: XR KNEE 4V AP/PA/LAT/MERCH FABIO COMPARISON: Radiographs 04/17/2021 RESULT: Right knee: There is no acute osseous, articular, or soft tissue abnormality. There is no joint effusion or soft tissue swelling. Severe tricompartmental joint space narrowing with large marginal osteophytes, genu varus, loose bodies Left knee: There is no acute osseous, articular, or soft tissue abnormality. There is no joint effusion or soft tissue swelling. Severe tricompartmental joint space narrowing with large marginal osteophytes, genu varus, loose bodies IMPRESSION: 1. Severe osteoarthrosis of the bilateral knees with interval progression Prn Physical Therapist: PSCFrench Transcribe Date/Time: Jul 26 2025 5:37P Dictated by : JOSÉ MIGUEL MCFARLNAD MD This examination was interpreted and the report reviewed and electronically signed by: JOSÉ MIGUEL MCFARLAND MD on Jul 26 2025 5:39PM EST [id number] Normal [facility] [id number] 07-18-2025 [id number] HNO ID: [id number] Author: JENNIFER EUBANKS PT Service: ? Author Type: Physical Therapist Type: [id number] Filed: 07/18/2025 11:54 Note Text: [facility] Physical Therapy Plan of Care Certification Patient Name: José Miguel Young Sr. : 1965 F #: [id number] Date: 07/18/2025 To: Cherri Cerda APRN.GATE TECHNICIAN From Therapist: Jennifer Eubanks PT RE: Patient Certification/ Recertification Your review, approval and electronic signature are required in order to comply with Payor: [employer] MEDICAID / Plan: AN[employer]M BCBS MEDICAID OF [place] / Product Type: Medicaid / regulations. The identified Physical Therapy PLAN OF CARE for the patient is as follows: M54.50, G89.29 Chronic right-sided low back pain without sciatica (primary encounter diagnosis) PLAN OF CARE: Assessment: José Miguel Young Sr. presents with diagnosis of chronic right-sided low back pain without sciatica that interferes with walking, standing, sitting, rising from a chair . The patient presents with impairments in ADL's, balance, flexibility, gait, independence in exercise, joint mobility, overall function, patient reported outcome measures, posture, range of motion, strength, symptom management, and tissue tenderness. PROMIS? (Patient-Reported Outcomes Measurement Information System) scores were reviewed and identified as a rehabilitation concern. Prognosis for therapy is Fair due to: chronic nature of impairments, clinical presentation, multiple co- morbidities, limited tolerance to activity . The patient will benefit from skilled therapy services to meet the goals established for this plan of care as noted below. Classification Pain Mechanism Classification: Nociceptive Low Back Pain Classification: Symptom Modulation Goals for Episode of Care: established 07/18/25 Independent in home exercises. Patient will decrease pain to 1-2/10 with functional activities to allow patient to improve ambulation, transfers, and standing tolerance for ADLs. Restore pain-free lumbar ROM to minimal to moderate limitation without increased symptoms flexion and extension to allow for transitional movements. Stand / Walk 15-20 minutes without increased pain/symptoms. Sit 1 hours without pain/symptoms to allow for seated activities. Patient Goals: reduce LBP Time Frame for Goals and Treatment : 08/29/25 Planned Interventions, Frequency, and Duration: Current Frequency: 1x/week Duration: 6 weeks Total Number of Visits Planned: 6 Planned Treatment Interventions: Therapeutic exercise (79614), Neuromuscular re-education (40544), Manual therapy (87160), Therapeutic activities (46006), Self-jail management (55827), Gait Training (20449) PLAN FOR NEXT VISIT: Core activation standing in rollator, pt. instructed to bring it with him next visit. Patient demonstrates good understanding of plan of care and treatment. The above goals and plan of care were discussed and agreed upon by patient/family. For further details regarding this patient refer to the Physical Therapy electronically documented visit dated 07/18/2025. Provider Attestation I have reviewed the treatment plan for José Miguel Young Sr., CCF# [id number] for the period of 07/18/25 -- 08/29/25, established on 07/18/2025. Signature certifies the need for therapy services. Normal [facility] CNTHERAPYon 07-18-2025 CNTHERAPY OT/PT/Speech Visit ( PTWS) -- JOSÉ MIGUEL YOUNG SR. ([id number]) 1965 M Date Time Provider Department 07/18/25 11:15 AM JENNIFER EUBANKS PTUMER Date Time Provider Department [place] 07/18/2025 11:15 AM [id number] EUBANKS PTUMER [place] Reason for Visit: PT Eval [747] Primary Visit Diagnosis:Chronic right-sided low back pain without sciatica [M54.50, G89.29] Allergies As of Date: 07/18/2025 Noted Allergy Reaction EFFEXOR (VENLAFAXINE) 06/17/2021 1 - Mental Status Change Comments: Suicidal thoughts GABAPENTIN 11/13/2017 7 - Swelling Comments: Leg swelling AMLODIPINE 06/08/2016 14 - Other: See Comments Comments: leg swelling LISINOPRIL 02/13/2016 3 - Cough Date Reviewed: 06/14/2025 Reviewed by: Cherri Cerda APRN.GATE TECHNICIAN - Fully Assessed Prescriptions as of 07/18/2025 - cyclobenzaprine (FLEXERIL) 10 mg tablet Take 0.5 tablets by mouth two times a day as needed. - tamsulosin (FLOMAX) 0.4 mg Take 1 capsule by mouth daily at bedtime. - guanFACINE (TENEX) 1 mg tablet Take 1 tablet by mouth daily at bedtime. - buPROPion XL (WELLBUTRIN XL) 150 mg 24 hr tablet Take 1 tablet by mouth once daily. - apixaban (ELIQUIS) 5 mg tab(s) Take 1 tablet by mouth two times a day. - omeprazole (PRILOSEC) 20 mg capsule Take 1 capsule by mouth daily before breakfast. 1/2 hr before meal. - losartan (COZAAR) 100 mg tablet Take 1 tablet by mouth once daily. - NIFEdipine ER (PROCARDIA XL) 30 mg 24 hr tablet Take 1 tablet by mouth once daily. - furosemide (LASIX) 40 mg tablet Take 1 tablet by mouth once daily. - escitalopram oxalate (LEXAPRO) 20 mg tablet Take 1 tablet by mouth once daily. - acetaminophen (TYLENOL EXTRA STRENGTH) 500 mg tablet Take 2 tablets by mouth every 8 hours as needed for pain. - melatonin 5 mg chew Take 6 tablets by mouth at bedtime as needed for insomnia. - atenolol (TENORMIN) 100 mg tablet Take 100 mg by mouth once daily. - minoxidil (LONITEN) 10 mg tablet Take 2 tablets by mouth once daily. - finasteride (PROSCAR) 5 mg tablet Take 1 tablet by mouth once daily. 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 and low dose aspirin Jennifer Timmons RN Electrical Appliance Preparer: Addendum Therapy (PT/OT/Speech/Resp) ID: [id number] 07/18/2025 11:40 AM Author: JENNIFER EUBANKS Signed by JENNIFER EUBANKS PT on 07/18/2025 at 11:40 AM * * * This document replaces document [id number] * * * Document text: Program_ID:[id number] Access Code: [email or web address] URL: [email or web address] Date: 07-18-2025 Prepared By: Jennifer Eubanks Program Notes Exercises - Seated Lumbar Flexion Stretch - 2-3 x daily - 7 x weekly - 4 sets - 10 reps - Seated Transversus Abdominis Bracing - 2-3 x daily - 7 x weekly - 4 sets - 10 reps - Seated Side Stretch - 2-3 x daily - 7 x weekly - 3 sets - 1 reps Normal [facility] THERAPY NTon 07-18-2025 THERAPY NT HNO ID: [id number] Author: JENNIFER EUBANKS PT Service: ? Author Type: Physical Therapist Type: Therapy (PT/OT/Speech/Resp) Filed: 07/18/2025 11:40 Note Text: Program_ID:[id number] Access Code: [email or web address] URL: [email or web address] Date: 07-18-2025 Prepared By: Jennifer Eubanks Program Notes Exercises - Seated Lumbar Flexion Stretch - 2-3 x daily - 7 x weekly - 4 sets - 10 reps - Seated Transversus Abdominis Bracing - 2-3 x daily - 7 x weekly - 4 sets - 10 reps - Seated Side Stretch - 2-3 x daily - 7 x weekly - 3 sets - 1 reps Normal [facility] CNPNon 07-10-2025 CNPN Telephone (FAMPWS) -- JOSÉ MIGUEL YOUNG SR. ([id number]) 1965 M Date Time Provider Department 9/2/25 PIERCE WELLS During your visit today, we recorded the following information about you: Ruby Lee MA 07/10/2025 5:06 PM Signed Type of letter/form/fax request - Disability Form received from mail on 1 floor and placed on MD desk (Dr. Wells) for completion. Completed form needs to be faxed to [employer] at [phone]. Route to CT when form completed for processing Armani Leong APRN.CNP 07/13/2025 1:16 PM Signed Sent mychart to patient in regards to [employer] disability contact number as I cannot fill this form out without proper testing tools. Armani Leong APRN.CNP Allergies As of Date: 07/10/2025 Noted Allergy Reaction EFFEXOR (VENLAFAXINE) 06/17/2021 1 - Mental Status Change Comments: Suicidal thoughts GABAPENTIN 11/13/2017 7 - Swelling Comments: Leg swelling AMLODIPINE 06/08/2016 14 - Other: See Comments Comments: leg swelling LISINOPRIL 02/13/2016 3 - Cough Date Reviewed: 06/14/2025 Reviewed by: Cherri Cerda APRN.CNP - Fully Assessed Reason for Visit: Forms [913] Cmt: Disability Prescriptions as of 07/13/2025 - cyclobenzaprine (FLEXERIL) 10 mg tablet Take 0.5 tablets by mouth two times a day as needed. - tamsulosin (FLOMAX) 0.4 mg Take 1 capsule by mouth daily at bedtime. - guanFACINE (TENEX) 1 mg tablet Take 1 tablet by mouth daily at bedtime. - buPROPion XL (WELLBUTRIN XL) 150 mg 24 hr tablet Take 1 tablet by mouth once daily. - apixaban (ELIQUIS) 5 mg tab(s) Take 1 tablet by mouth two times a day. - omeprazole (PRILOSEC) 20 mg capsule Take 1 capsule by mouth daily before breakfast. 1/2 hr before meal. - losartan (COZAAR) 100 mg tablet Take 1 tablet by mouth once daily. - NIFEdipine ER (PROCARDIA XL) 30 mg 24 hr tablet Take 1 tablet by mouth once daily. - furosemide (LASIX) 40 mg tablet Take 1 tablet by mouth once daily. - escitalopram oxalate (LEXAPRO) 20 mg tablet Take 1 tablet by mouth once daily. - acetaminophen (TYLENOL EXTRA STRENGTH) 500 mg tablet Take 2 tablets by mouth every 8 hours as needed for pain. - melatonin 5 mg chew Take 6 tablets by mouth at bedtime as needed for insomnia. - atenolol (TENORMIN) 100 mg tablet Take 100 mg by mouth once daily. - minoxidil (LONITEN) 10 mg tablet Take 2 tablets by mouth once daily. - finasteride (PROSCAR) 5 mg tablet Take 1 tablet by mouth once daily. 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 and low dose aspirin Jennifer Timmons RN Problem List As Of Date 07/10/2025 Noted Resolved Essential hypertension [I10] Tobacco use disorder [F17.200] 01/01/2011 06/29/2017 Cutaneous skin tags [L91.8] 06/01/2011 Sebaceous cyst [L72.3] 06/01/2011 Lipoma of unspecified site [D17.9] 06/22/2011 Diuretic-induced hypokalemia [E87.6, T50.2X5A] 02/22/2014 Sciatica [M54.30] 03/05/2014 Lumbago [M54.50] 03/05/2014 Digital mucous cyst [M67.449] 01/13/2016 Anxiety [F41.9] 07/18/2017 Morbid (severe) obesity due to excess calories *01/21/2018 Encounter Status:Closed by ARMANI LEONG on 07/13/25 Normal [facility] Cardiology Visit Reporton Cardiology Visit Report [facility] [address] [place] [address]. [address] [place] [address] OFFICE VISIT Date of Service: 06/25/25 MR#: [id number] Acct: [id number] Name: JOSÉ MIGUEL YOUNG Sr. Rep #: [id number] : 1965 Provider: YANY connolly Age/Sex: 59/M Location: [facility] Status: Signed HPI HPI History of Present Illness Details: 59-year-old man with a history of hypertension, morbid obesity, shortness of breath who presented to the hospital in March 2025 with severe hypertension as well as was noted to have atrial fibrillation with a rate of 93 bpm left posterior fascicular block. He underwent CT scan for evaluation which demonstrated no evidence of pulmonary embolism small pleural effusion was noted. He also underwent an echocardiogram which demonstrated an ejection fraction of 70% mild concentric left ventricular pressure for stage I diastolic dysfunction and no significant valvular abnormalities trivial to small pericardial effusion was noted. His blood work did not demonstrate any significant abnormalities other than an elevated proBNP of 1500. He was treated with antihypertensive medication and discharged. He had a readmission in March for a short period of time. He acknowledges random left-sided chest pressure. This can occur at rest and with activity. This occurs more than once per day. He considers this to be brief (less than 10 seconds). He is unsure the etiology. He denies palpitations. He acknowledges bilateral lower extremity edema with left worse than right that improves by the morning. He acknowledges shortness of activity such as walking and going up stairs. He denies shortness of breath at rest, orthopnea, cough, or PND. He acknowledges dizziness upon standing. He denies lightheadedness, near-syncope, syncope, or weakness. He acknowledges fatigue. 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 Worker Required: No Accompanied by: Significant Other Is patient in pain?: No Allergies amlodipine Allergy (Intermediate, Verified 06/25/25 13:09) Swelling gabapentin Allergy (Intermediate, Verified 06/25/25 13:09) Swelling lisinopril Allergy (Intermediate, Verified 06/25/25 13:09) cough venlafaxine (From Effexor) Allergy (Intermediate, Verified 06/25/25 13:09) Suicidal thoughts Medications ???Medication ???Instructions ???Recorded ???Confirmed ???Type minoxidil 10 mg tablet 20 mg PO DAILY HAIR GROWTH 9 06/25/25 History finasteride 5 mg tablet 5 mg PO QPM 03/02/25 06/25/25 Hist ory losartan 100 mg tablet 100 mg PO DAILY 03/02/25 06/25/25 History omeprazole 20 mg capsule,delayed 20 mg PO DAILY 03/02/25 06/25/25 H istory release tamsulosin 0.4 mg capsule 0.4 mg PO QHS 03/02/25 06/25/25 Hi story dapagliflozin propanediol 10 mg 10 mg PO QDAY #90 tabs 05/09/25 Rx tablet (Farxiga) escitalopram oxalate 20 mg tablet 20 mg PO QDAY 05/09/25 06/25/25 H istory apixaban 5 mg tablet (Eliquis) 5 mg PO BID #180 tabs 05/24/25 Rx atenolol 100 mg tablet 100 mg PO DAILY #90 tabs 06/04/25 06/25/25 Rx furosemide 40 mg tablet 40 mg PO QDAY #90 tabs 06/04/25 Rx nifedipine 60 mg tablet,extended 60 mg PO DAILY #90 tabs 06/04/25 0 06/25/25 Rx release acetaminophen 500 mg tablet mg PO 06/25/25 06/25/25 History bupropion HCl 150 mg 24 hr tablet, 150 mg PO QDAY 06/25/25 06/25/25 History extended release cyclobenzaprine 10 mg tablet 5 mg PO BID PRN 06/25/25 06/25/25 History guanfacine 1 mg tablet 1 mg PO QPM BLOOD PRESSURE 30 days 06/25/25 06/25/25 History ##30 melatonin 5 mg chewable tablet 5 mg PO HS 06/25/25 06/25/25 Histo ry Ejection fraction %: 70 Have you fallen in the past year?: No PFSH Medical History Atrial fibrillation (HFpEF) heart failure with preserved ejection fraction D-dimer, elevated Morbid obesity with BMI of 50.0-59.9, adult Dyspnea Anxiety and depression HTN (hypertension) Disorder of bone, unspecified Obesity hypoventilation syndrome Surgical History No history of previous surgery Family History Father CVA (cerebral vascular accident) Cancer Mother CVA (cerebral vascular accident) Diabetes Social History Smoking Status: Never smoker alcohol intake: never substance use type: does not use caffeine: Yes Type: carbonated beverages ROS Const Const: Posit (more content not included)... Normal [facility] 06-14-2025 [facility] Office Visit (SPAGWO ) -- JOSÉ MIGUEL YOUNG SR. ([id number]) 1965 M Date Time Provider Department 06/14/25 9:00 AM CHERRI CERDA During your visit today, we recorded the following information about you: Pulse Respiration [facility] [place] [facility] CNPN Telephone (FAMPWS) -- JOSÉ MIGUEL YOUNG SR. ([id number]) 1965 M Date Time Provider Department 06/08/25 [facility] During your visit today, we recorded the following information about you: Pepper Coffey, KEVIN 06/08/2025 4:58 PM Signed Patient's calling and requesting an order for rollator walker (walker with a seat that will hold his weight) for patient, if provider agreeable. advised to call insurance company to determine what medical supply companies they cover as well as contacting the supply company of their choice directly, to determine if they carry item for pt's weight. Please call once order has been placed. to provide DME company information at that time. KEVIN Landry Jesse, APRN.MELIA 06/11/2025 7:02 AM Signed Order is printed and signed. Armani Leong APRN.DANIELLE LUNA 06/12/2025 2:16 PM Signed Spoke with at this time who requests that it be sent to [facility]. Advised her that we will fax it over and she should check with them in 24-48 hours to verify any issues with insurance or co-pays. Verbalized understanding. Faxed as requested at this time. Danielle Bolden LPN Allergies As of Date: 06/08/2025 Noted Allergy Reaction EFFEXOR (VENLAFAXINE) 06/17/2021 1 - Mental Status Change Comments: Suicidal thoughts GABAPENTIN 11/13/2017 7 - Swelling Comments: Leg swelling AMLODIPINE 06/08/2016 14 - Other: See Comments Comments: leg swelling LISINOPRIL 02/13/2016 3 - Cough Date Reviewed: 06/04/2025 Reviewed by: Armani Leong APRN.GATE TECHNICIAN - Fully Assessed Reason for Visit: DME Order [Other] Primary Visit Diagnosis:Sciatica, unspecified laterality [M54.30] Other Visit Diagnoses:Heart failure, unspecified HF chronicity, unspecified heart failure type (HCC) [I50.9] Atrial fibrillation, unspecified type (HCC) [I48.91] Chronic bilateral low back pain without sciatica [M54.50, G89.29] Degeneration of intervertebral disc of lumbar region with discogenic back pain and lower extremity pain [M51.362] Order(s):DME SUPPLY OR ACCESSORY, NOS [[id number]] Order #: [id number] DME SUPPLY OR ACCESSORY, NOS [[id number]] Order #: [id number] Prescriptions as of 06/12/2025 - tamsulosin (FLOMAX) 0.4 mg Take 1 capsule by mouth daily at bedtime. - guanFACINE (TENEX) 1 mg tablet Take 1 tablet by mouth daily at bedtime. - predniSONE (DELTASONE) 10 mg tablet Take 6 tabs for 3 days, then 4 tabs for 3 days, then 2 tabs for 3 days then 1 tab for 3 days with food. - buPROPion XL (WELLBUTRIN XL) 150 mg 24 hr tablet Take 1 tablet by mouth once daily. - apixaban (ELIQUIS) 5 mg tab(s) Take 1 tablet by mouth two times a day. - omeprazole (PRILOSEC) 20 mg capsule Take 1 capsule by mouth daily before breakfast. 1/2 hr before meal. - losartan (COZAAR) 100 mg tablet Take 1 tablet by mouth once daily. - NIFEdipine ER (PROCARDIA XL) 30 mg 24 hr tablet Take 1 tablet by mouth once daily. - furosemide (LASIX) 40 mg tablet Take 1 tablet by mouth once daily. - escitalopram oxalate (LEXAPRO) 20 mg tablet Take 1 tablet by mouth once daily. - acetaminophen (TYLENOL EXTRA STRENGTH) 500 mg tablet Take 2 tablets by mouth every 8 hours as needed for pain. - melatonin 5 mg chew Take 6 tablets by mouth at bedtime as needed for insomnia. - atenolol (TENORMIN) 100 mg tablet Take 100 mg by mouth once daily. - minoxidil (LONITEN) 10 mg tablet Take 2 tablets by mouth once daily. - finasteride (PROSCAR) 5 mg tablet Take 1 tablet by mouth once daily. 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 and low dose aspirin Jennifer Timmons RN Problem List As Of Date 06/08/2025 Noted Resolved Essential hypertension [I10] Tobacco use disorder [F17.200] 01/01/2011 06/29/2017 Cutaneous skin tags [L91.8] 06/01/2011 Sebaceous cyst [L72.3] 06/01/2011 Lipoma of unspecified site [D17.9] 06/22/2011 Diuretic-induced hypokalemia [E87.6, T50.2X5A] 02/22/2014 Sciatica [M54.30] 03/05/2014 Lumbago [M54.50] 03/05/2014 Digital mucous cyst [M67.449] 01/13/2016 Anxiety [F41.9] 07/18/2017 Morbid (severe) obesity due to excess calories *01/21/2018 Encounter Status:[facility] ) -- JOSÉ MIGUEL YOUNG SR. ([id number]) 1965 M Date Time Provider Department 06/04/25 8:40 AM ARMAN[facility] LEONG [facility] During your visit today, we recorded the following information about you: Pulse Respiration Blood pressure Weight 62/minute 18/minute 130/78 147 kg Armani Leong APRN.GATE TECHNICIAN 06/04/2025 9:12 AM Signed Chief Complaint Patient presents with: Follow Up HPI José Miguel Young Sr. is a 59 year old male who presents here today for above reason. José Miguel Young is a 59-year-old male with a history of CHF, presenting for follow-up. José Miguel has been experiencing elevated blood pressure readings over the weekend. He is currently under the care of a spinning mule operator at [facility] and had a cardioversion performed on 05/09. He is taking Farxiga and Eliquis, and was recently discontinued from potassium and low-dose aspirin. He reports stable weight, currently at 324 lbs, with a recent weight loss of almost 60 lbs. He has been hospitalized twice in the past month, with a current weight range of 319-325 lbs. José Miguel also reports persistent right-sided lower back pain, which has worsened since discontinuing ibuprofen and switching to Tylenol. The pain does not radiate to the legs but is associated with knee issues. He has a history of degenerative disc disease and arthritis, confirmed by an x-ray in 2019. He has not seen a chiropractor in 5-6 years. Additionally, José Miguel reports pressure between the shoulder blades and chest tightness, which began after his CHF diagnosis. He is currently taking 20 mg of Lexapro for depression, recently increased from 10 mg, but reports no improvement in symptoms. He has a history of Wellbutrin use, which was discontinued when his condition improved. He reports difficulty sleeping due to racing thoughts and has had thoughts of self-harm, though he denies any current plans or intentions. He attributes his current mental state to his medical condition and financial stress, including $70,000 in medical bills. He reports a decreased appetite, eating only one meal a day, and is limiting fluid intake to less than 50 ounces per day. Past medical history, appointments, medications, allergies reviewed. EXAM: BP 130/78 Pulse 62 Resp 18 Wt (!) 147 kg (324 lb) SpO2 95% BMI 50.00 kg/m? General Appearance: Well appearing, alert, in no acute distress, well-hydrated, well nourished. and Morbidly obese. Back:gait is stiff, unable to get onto exam table likely, he has right sided lower paraspinal tenderness, SI joint tenderness Lungs: Lungs clear to auscultation. No wheezing, rhonchi, rales.. Heart: RRR without murmur, gallop, or rubs. No ectopy. Extremities: No deformities, edema Assessment and Plan 1. Heart failure, unspecified HF chronicity, unspecified heart failure type (HCC) (I50.9) Clinically stable. Recent cardioversion performed on May 16. Currently on Farxiga and Eliquis; potassium and aspirin have been discontinued. Weight stable between 319-325 lbs; fluid intake restricted to less than 50 oz per day. - Continue Farxiga and Eliquis as prescribed. - Follow-up with cardiology today as scheduled. 2. Atrial fibrillation, unspecified type (HCC) (I48.91) Managed with Eliquis; recent cardioversion performed on May 16. - Continue Eliquis as prescribed. - Follow-up with cardiology. 3. Essential hypertension (I10) Blood pressure readings have been elevated recently, but currently measured at 130/70 mmHg. - Monitor blood pressure regularly. - Follow-up with cardiology. 4. Benign prostatic hyperplasia with nocturia (N40.1) Managed with Tamsulosin (Flomax) at bedtime. - Refill Tamsulosin prescription. 5. Chronic right-sided low back pain without sciatica (M54.50) Chronic right-sided low back pain with no radicular symptoms. Previous imaging from 2019 shows degenerative disc disease and arthritis in the lumbar spine and SI joints. Pain management complicated by inability to use NSAIDs due to heart condition. - Ordered updated lumbar spine X-ray. - Prescribed a short course of oral corticosteroids to reduce inflammation. - Referral to pain management for long-term pain control. 6. Reactive depression (F32.9) Currently on maximum dose of Lexapro 20 mg daily; previously on Wellbutrin. Reports persistent depressive symptoms, including insomnia and anhedonia. Denies suicidal ideation but expresses feelings of hopelessness. - Restart Wellbutrin as adjunct therapy. - Continue Lexapro 20 mg daily. - Discussed the importance of mental health support; recommended counseling or psychiatric evaluation if symptoms worsen. Armani Leong APRN.GATE TECHNICIAN RTO in 6 weeks, sooner if needed. This note was partly generated using [employer] voice recognition dictation and may contain some misspelled or inaccurate words missed on review. Recording usin (more content not included)... Normal [facility] XR LUMBAR 3V AP/LAT/L5-S1on 06-04-2025 XR LUMBAR 3V AP/LAT/L5-S1 * * *Final Report* * * DATE OF EXAM: Jun 04 2025 9:19AM WOX [id number] - XR LUMBAR 3V AP/LAT/L5-S1 / PROCEDURE REASON: multiple diagnoses * * * * Physician Interpretation * * * * EXAM TITLE: XR LUMBAR 3V AP/LAT/L5-S1 EXAM DATE/TIME: 06/04/2025 9:19 AM COMPARISON: None. CLINICAL INDICATION/HISTORY: Low back pain. TECHNIQUE: AP, lateral and cone down lateral views of the lumbar spine are presented. FINDINGS: There are five akt-ylr-dskoojj lumbar vertebrae. Left-sided curvature is seen on AP view. No fracture seen. There is grade 1 L5 on S1 anterolisthesis. L2-3, L3-4 and L4-5 disc space narrowing is demonstrated, with or without endplate sclerosis. There is significant osteophyte formation, with facet arthrosis. Kissing spine seen on lateral view. IMPRESSION: Advanced lumbar spine degenerative changes with multilevel disc space narrowing. Prn Physical Therapist: JOSE Transcribe Date/Time: Jun 06 2025 5:54P Dictated by : CHACE MATHEWS MD This examination was interpreted and the report reviewed and electronically signed by: CHACE MATHEWS MD on Jun 06 2025 5:56PM EST [id number] [facility] JOSÉ MIGUEL YOUNG SR. ([id number]) 1965 M Date Time Provider Department 05/21/25 [facility] During your visit today, we recorded the following information about you: Angela Ojeda RN 05/21/2025 12:39 PM Signed Pt's called in and reports Dr Lucio changed his medications around. She states he kept the Pt on the Lasix and discontinued the Potassium Chloride. I told her his K+ on his labs from 05/16/25 was 4.0, so it was ok. I don't know if it was temporary that he took him off of it and he was going to be monitoring his labs. The she states the provider put him on Farxiga, I told her this was for DM but could also be used to protect the heart. I let her know she would need to call Dr Lucio's office and ask them about these medications, since he is the one that prescribes them. She verbalized understanding and said she was going to call them. Angela Ojeda RN Allergies As of Date: 05/21/2025 Noted Allergy Reaction EFFEXOR (VENLAFAXINE) 06/17/2021 1 - Mental Status Change Comments: Suicidal thoughts GABAPENTIN 11/13/2017 7 - Swelling Comments: Leg swelling AMLODIPINE 06/08/2016 14 - Other: See Comments Comments: leg swelling LISINOPRIL 02/13/2016 3 - Cough Date Reviewed: 05/12/2025 Reviewed by: Jennifer Timmons, KEVIN - Fully Assessed Reason for Visit: Medication Question [1478] Prescriptions as of 05/21/2025 - furosemide (LASIX) 40 mg tablet Take 1 tablet by mouth once daily. - potassium chloride ER (KLOR-CON) 20 mEq tablet Take 1 tablet by mouth once daily. - escitalopram oxalate (LEXAPRO) 20 mg tablet Take 1 tablet by mouth once daily. - acetaminophen (TYLENOL EXTRA STRENGTH) 500 mg tablet Take 2 tablets by mouth every 8 hours as needed for pain. - aspirin, enteric coated (ECOTRIN LOW STRENGTH) 81 mg EC tablet Take 1 tablet by mouth once daily. - melatonin 5 mg chew Take 6 tablets by mouth at bedtime as needed for insomnia. - atenolol (TENORMIN) 100 mg tablet Take 100 mg by mouth once daily. - Aspirin 81 mg tab Take 81 mg by mouth once daily. - apixaban (ELIQUIS) 5 mg tab(s) Take 5 mg by mouth two times a day. - minoxidil (LONITEN) 10 mg tablet Take 2 tablets by mouth once daily. - finasteride (PROSCAR) 5 mg tablet Take 1 tablet by mouth once daily. - tamsulosin (FLOMAX) 0.4 mg Take 1 capsule by mouth daily at bedtime. - omeprazole (PRILOSEC) 20 mg capsule Take 1 capsule by mouth daily before breakfast. 1/2 hr before meal. - NIFEdipine ER (PROCARDIA XL) 30 mg 24 hr tablet Take 1 tablet by mouth once daily. - guanFACINE (TENEX) 1 mg tablet Take 1 tablet by mouth daily at bedtime. - losartan (COZAAR) 100 mg tablet Take 1 tablet by mouth once daily. 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 and low dose aspirin Jennifer Timmons RN Problem List As Of Date 05/21/2025 Noted Resolved Essential hypertension [I10] Tobacco use disorder [F17.200] 01/01/2011 06/29/2017 Cutaneous skin tags [L91.8] 06/01/2011 Sebaceous cyst [L72.3] 06/01/2011 Lipoma of unspecified site [D17.9] 06/22/2011 Diuretic-induced hypokalemia [E87.6, T50.2X5A] 02/22/2014 Sciatica [M54.30] 03/05/2014 Lumbago [M54.50] 03/05/2014 Digital mucous cyst [M67.449] 01/13/2016 Anxiety [F41.9] 07/18/2017 Morbid (severe) obesity due to excess calories *01/21/2018 Encounter Status:Closed by ANGELA OJEDA on 05/21/25 Normal [facility] Anion gap in Serum or Plasma Ordered By: Dimitris Lucio on 05-16-2025 Anion gap [Moles/Vol] 11 mmol/L 5-15 [facility] BUN/creatinine ratioOrdered By: Dimitris Lucio on 05-16-2025 Urea nitrogen/Creatinine [Mass ratio] 22.7 mg/mg High - [facility] Basic Metabolic Profile (BMP )on 05-16-2025 BUN/CRE 22.7 RATIO High - [facility] Comment on above: Performed By: #### L 500.2500 ####[facility] [address] [place], [address] Calcium [Mass/Vol] 9.4 mg/dL Normal 7.6-11.0 [facility] Comment on above: Performed By: #### L 500.2500 ####[facility] [address] [place], [address] Chloride [Moles/Vol] 103 mmol/L Normal 98-108 [facility] Comment on above: Performed By: #### L 500.2500 ####[facility] [address] [place], [address] CO2 [Moles/Vol] 26.8 mmol/L Normal 21.0-32.0 [facility] Comment on above: Performed By: #### L 500.2500 ####[facility] [address] [place], [address] Creatinine [Mass/Vol] 1.00 mg/dL Normal 0.70-1.20 [facility] Comment on above: Performed By: #### L 500.2500 ####[facility] [address] [place], [address] ECRCL 109.94 ml/min Normal 50-250 [facility] Comment on above: Performed By: #### L 500.2500 ####[facility] [address] [place], [address] GAP 11 Normal 5-15 [facility] Comment on above: Performed By: #### L 500.2500 ####[facility] [address] [place], [address] GFR/1.73 sq M.predicted among non-blacks MDRD (S/P/Bld) [Vol rate/Area] 87 mL/min/{1.73_m2} Normal >60 [facility] Comment on above: Result Comment: mL/m in/1.73m2 CKD-EPI Creatinine Equation (2020) Performed By: #### L 500.2500 ####[facility] [address] [place], [address] Glucose [Mass/Vol] 118 mg/dL High 70-99 [facility] Comment on above: Performed By: #### L 500.2500 ####[facility] [address] [place], [address] Potassium [Moles/Vol] 4.0 mmol/L Normal 3.3-5.1 [facility] Comment on above: Performed By: #### L 500.2500 ####[facility] [address] [place], [address] Sodium [Moles/Vol] 141 mmol/L Normal 133-145 [facility] Comment on above: Performed By: #### L 500.2500 ####[facility] [address] [place], [address] Urea nitrogen [Mass/Vol] 23 mg/dL High 4-19 [facility] Comment on above: Performed By: #### L 500.2500 ####[facility] [address] [place], [address] Carbon dioxide, total [Moles /volume] in Central venous bloodOrdered By: Dimitris Lucio on 05-16-2025 CO2 [Moles/Vol] 26.8 mmol/L 21.0-32.0 [facility] Chloride assayOrdered By: Jaret Lucio on 05-16-2025 Chloride [Moles/Vol] 103 mmol/L 98-108 [facility] Glomerular filtration rate ( GFR) estimation/1.73 sq m using serum, plasma, or whole bOrdered By: Dimitris Lucio on 05-16-2025 GFR/1.73 sq M.predicted among non-blacks MDRD (S/P/Bld) [Vol rate/Area] 87 mL/min/{1.73_m2} >60 [facility] Comment on above: mL/min/1.73m2 CKD-EP I Creatinine Equation (2020) Potassium measurement (mass/ volume)Ordered By: Dimitris Lucio on 05-16-2025 Potassium (Unsp spec) [Mass/Vol] 4.0 mmol/L 3.3-5.1 [facility] Procedure Reporton Procedure Report [facility] Medical Records Department [address] [place] [address] Procedure Report 05/16/25 1306 MR#: [id number] Acct: [id number] Name: JOSÉ MIGUEL YOUNG . Rep #: [id number] : 1965 59 From: Bay Phillips DO PCP: Dr. Pierce Wells MD Status:[facility] Location: [facility] Procedures Pulmonary Pulmonary Procedures /Diagnostic Testin Con Sedation Non-invasive Procedural Procedure Information Date of Procedure: 05/16/25 Description of procedure: CONSCIOUS SEDATION REPORT DATE OF SERVICE: May 16, 2025 BRIEF HISTORY OF PRESENT ILLNESS: The patient is a 59-year-old male who presented to [facility] to undergo an elective outpatient cardioversion due to underlying atrial fibrillation. The patient denied any prior anesthetic complications. He is a non-smoker and has never been diagnosed with obstructive sleep apnea. The patient is systemically anticoagulated on Eliquis. His last surface echocardiogram demonstrated an ejection fraction of 70%. PHYSICAL EXAMINATION: VITAL SIGNS: Reviewed and were acceptable. GENERAL: The patient is an obese male, in no apparent distress, speaking in full sentences. HEENT: Normocephalic, atraumatic. Mucous membranes are moist and pink. Good mouth opening noted. Trachea is midline. CHEST: S1, S2 irregularly irregular. No murmurs, rubs or gallops were noted. LUNGS: Clear to auscultation bilaterally without appreciable wheezes, rales or rhonchi. ABDOMEN: Soft, nontender, nondistended. Positive bowel sounds. EXTREMITIES: There is no clubbing, cyanosis or edema. ASA Class: II DESCRIPTION OF PROCEDURE: After confirmation of informed consent, the patient's anesthesia plan was reviewed in detail. Propofol was chosen. Risks and benefits were reviewed and the patient agreed to proceed. At 1219, the patient was given his first bolus of propofol. In total, the patient required 100 mg of propofol to achieve an appropriate level of sedation, after which time, he was given a 300 joule synchronized cardioversion by Dr. Lucio at the bedside. This was successful in achieving normal sinus rhythm. The patient was monitored until 1234, at which time he reached his baseline mental status and function. The patient tolerated the procedure well. COMPLICATIONS: None ESTIMATED BLOOD LOSS: None RECOMMENDATIONS: Okay to recover in usual fashion. 05/16/25 1308 Cosigner Signature (if applicable): CC: Dr. Dimitris Lucio MD; Dr. Bay Phillips DO; Dr. Pierce Wells MD Signed Normal [facility] Procedure Report [facility] Medical Records Department [address] [place] [address] Procedure Report 05/16/25 1239 MR#: [id number] Acct: [id number] Name: JOSÉ MIGUEL YOUNG . Rep #: [id number] : 1965 59 From: Dimitris Lucio MD PCP: Dr. Pierce Wells MD Status:[facility] Location: [facility] Problems Associated Problem List Diagnoses (1) Atrial fibrillation: Non-invasive Procedural Procedure Information Date of Procedure: 05/16/25 Pre-Procedure Diagnosis: Atrial fibrillation Post-Procedure Diagnosis: Atrial fibrillation Procedure Performed:: Dc cardioversion Procedure Time Out: 12:05 Procedure Start Time: 12:20 Procedure Stop Time: 12:25 Special Medications: Intravenous propofol 100 mg Description of procedure: Patient was brought to the noninvasive lab in the postabsorptive nonsedated state. Patient was seen by Dr. Phillips of the critical care division. Informed consent was obtained. Patient has been on uninterrupted anticoagulation. Anterior posterior pads were applied. EKG demonstrated atrial fibrillation. 300 J of synchronized DC cardioversion energy biphasic were applied after patient was administered 100 mg of propofol. Patient successfully converted to sinus rhythm. Procedure findings: Successful DC cardioversion from atrial fibrillation to sinus rhythm. Follow-up as per office protocol 05/16/25 1251 Cosigner Signature (if applicable): CC: Dr. Dimitris Lucio MD; Dr. Pierce Wells MD Signed Normal [facility] Serum creatinine measurement (mass/volume)Ordered By: Dimitris Lucio on 05-16-2025 Creatinine [Mass/Vol] 1.00 mg/dL 0.70-1.20 [facility] Serum glucose measurement (m ass/volume)Ordered By: Dimitris Lucio on 05-16-2025 Glucose [Mass/Vol] 118 mg/dL High 70-99 [facility] Serum or plasma calcium silvia urement (mass/volume)Ordered By: Dimitris Lucio on 05-16-2025 Calcium [Mass/Vol] 9.4 mg/dL 7.6-11.0 [facility] Serum or plasma urea nitroge n measurement (mass/volume)Ordered By: Dimitris Lucio on 05-16-2025 Urea nitrogen [Mass/Vol] 23 mg/dL High 4-19 [facility] Sodium levelOrdered By: Ariela Lucio on 05-16-2025 Sodium [Moles/Vol] 141 mmol/L 133-145 [facility] Cardiology Visit Reporton Cardiology Visit Report [facility] [address] [place] [address] OFFICE VISIT Date of Service: 05/09/25 MR#: [id number] Acct: [id number] Name: JOSÉ MIGUEL YOUNG . Rep #: [id number] : 1965 Provider: Dr. Dimitris Lucio MD Age/Sex: 59/M Location: [facility] Status: Signed HPI HPI History of Present Illness Details: 59-year-old man with a history of hypertension, morbid obesity, shortness of breath who presented to the hospital in March of this year with severe hypertension as well as was noted to have atrial fibrillation with a rate of 93 bpm left posterior fascicular block. He underwent CT scan for evaluation which demonstrated no evidence of pulmonary embolism small pleural effusion was noted. He also underwent an echocardiogram which demonstrated an ejection fraction of 70% mild concentric left ventricular pressure for stage I diastolic dysfunction and no significant valvular abnormalities trivial to small pericardial effusion was noted. His blood work did not demonstrate any significant abnormalities other than an elevated proBNP of 1500. He was treated with antihypertensive medication and discharged. He had a readmission in March for a short period of time. He tells me that he has been doing well since. He has had occasional dizziness no diaphoresis no near-syncope he tells me that his Lasix has been reduced. He has been on anticoagulation. He has never been evaluated for sleep apnea. His lipid profile is also not the most favorable with a total cholesterol 140 HDL of 29 and LDL of 88. 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 Accompanied by: Significant Other Is patient in pain?: No Allergies amlodipine Allergy (Intermediate, Verified 05/09/25 15:59) Swelling gabapentin Allergy (Intermediate, Verified 05/09/25 15:59) Swelling lisinopril Allergy (Intermediate, Verified 05/09/25 15:59) cough venlafaxine (From Effexor) Allergy (Intermediate, Verified 05/09/25 15:59) Suicidal thoughts Medications ???Medication ???Instructions ???Recorded ???Confirmed ???Type guanfacine 1 mg tablet 1 tablet PO QPM BLOOD PRESSURE 30 05/09/18 03/25/25 History days ##30 minoxidil 10 mg tablet 20 mg PO DAILY HAIR GROWTH 9 03/25/25 History finasteride 5 mg tablet 5 mg PO QPM 03/02/25 03/25/25 Hist ory losartan 100 mg tablet 100 mg PO DAILY 03/02/25 03/25/25 History nifedipine 30 mg tablet,extended 30 mg PO DAILY 03/02/25 03/25/25 H istory release 24 hr omeprazole 20 mg capsule,delayed 20 mg PO DAILY 03/02/25 03/25/25 H istory release tamsulosin 0.4 mg capsule 0.4 mg PO QHS 03/02/25 03/25/25 Hi story apixaban 5 mg tablet (Eliquis) 5 mg PO BID 30 days #60 tabs 03/0503/25/25 Rx atenolol 100 mg tablet 100 mg PO DAILY 30 days #30 tabs 0 03/05/25 03/25/25 Rx dapagliflozin propanediol 10 mg 10 mg PO QDAY #90 tabs 05/09/25 Rx tablet (Farxiga) escitalopram oxalate 20 mg tablet 20 mg PO QDAY 05/09/25 History furosemide 40 mg tablet 40 mg PO QDAY 05/09/25 History Have you fallen in the past year?: No PFSH Medical History Atrial fibrillation (HFpEF) heart failure with preserved ejection fraction D-dimer, elevated Morbid obesity with BMI of 50.0-59.9, adult Dyspnea Anxiety and depression HTN (hypertension) Disorder of bone, unspecified Obesity hypoventilation syndrome Surgical History No history of previous surgery Family History Father CVA (cerebral vascular accident) Cancer Mother CVA (cerebral vascular accident) Diabetes Social History Smoking Status: Never smoker alcohol intake: never ROS Const Const: Positive for fatigue, weakness and headache(s); Negative for daytime sleepiness or difficulty sleeping ENT ENT: Positive for headache(s) and dizziness; Negative for Nosebleed/epistaxis Cardio Chest Pain: No Palpitations: No Edema: Bilateral (BLE at times ) Resp Respiratory: Positive for SOB with activity; Negative for SOB at rest, SOB orthopnea SOB lying down or Cough GI GI: Negative nausea, vomiting or heartburn Neuro Neuro: Positive for dizziness, headache(s) and weakness; Negative for lightheadedness or near syncope Endo Endo: Positive for fatigue Cardiology Exam Const Appearance: cooperative, healthy appeari (more content not included)... Normal [facility] CBC panel Auto (Bld)on 05-05 Erythrocyte distribution width (RBC) [Ratio] 14.2 % Normal 11.5-15.0 [facility] Comment on above: Order Comment: Speci men Type: BLOOD SPECIMENOrdering Facility: [facility] Address: [address] [place] [address] Performed By: #### 5 8410-2 ####[facility] LABCLIA [id number] [place] [address] [place] Hematocrit (Bld) [Volume fraction] 46.3 % Normal 39.0-51.0 [facility] Comment on above: Order Comment: Speci men Type: BLOOD SPECIMENOrdering Facility: [facility] Address: [address] [place] [address] Performed By: #### 5 8410-2 ####[facility] LABCLIA [id number] [place] [address] [place] Hemoglobin (Bld) [Mass/Vol] 15.1 g/dL Normal 13.0-17.0 [facility] Comment on above: Order Comment: Speci men Type: BLOOD SPECIMENOrdering Facility: [facility] Address: [address] [place] [address] Performed By: #### 5 8410-2 ####[facility] LABCLIA [id number] [place] [address] [place] MCH (RBC) [Entitic mass] 27.9 pg Normal 26.0-34.0 [facility] Comment on above: Order Comment: Speci men Type: BLOOD SPECIMENOrdering Facility: [facility] Address: [address] [place] [address] Performed By: #### 5 8410-2 ####[facility] LABCLIA [id number] [place] [address] [place] MCHC (RBC) [Mass/Vol] 32.6 g/dL Normal 30.5-36.0 [facility] Comment on above: Order Comment: Speci men Type: BLOOD SPECIMENOrdering Facility: [facility] Address: [address] [place] [address] Performed By: #### 5 8410-2 ####[facility] LABCLIA [id number] [place] [address] [place] MCV (RBC) [Entitic vol] 85.4 fL Normal 80.0-100.0 [facility] Comment on above: Order Comment: Speci men Type: BLOOD SPECIMENOrdering Facility: [facility] Address: [address] [place] [address] Performed By: #### 5 8410-2 ####[facility] LABCLIA [id number] [place] [address] [place] Nucleated RBC (Bld) [#/Vol] 10*3/uL Normal <0.01 [facility] Comment on above: Order Comment: Speci men Type: BLOOD SPECIMENOrdering Facility: [facility] Address: [address] [place] [address] Performed By: #### 5 8410-2 ####[facility] LABCLIA [id number] [place] [address] [place] Platelet mean volume (Bld) [Entitic vol] 10.8 fL Normal 9.0-12.7 [facility] Comment on above: Order Comment: Speci men Type: BLOOD SPECIMENOrdering Facility: [facility] Address: [address] [place] [address] Performed By: #### 5 8410-2 ####[facility] LABCLIA [id number] [place] [address] [place] Platelets (Bld) [#/Vol] 236 10*3/uL Normal 150-400 [facility] Comment on above: Order Comment: Speci men Type: BLOOD SPECIMENOrdering Facility: [facility] Address: [address] [place] [address] Performed By: #### 5 8410-2 ####[facility] LABCLIA [id number] [place] [address] [place] RBC (Bld) [#/Vol] 5.42 10*6/uL Normal 4.20-6.00 [facility] Comment on above: Order Comment: Speci men Type: BLOOD SPECIMENOrdering Facility: [facility] Address: [address] [place] [address] Performed By: #### 5 8410-2 ####[facility] LABCLIA [id number] [place] [address] [place] WBC (Bld) [#/Vol] 5.03 10*3/uL Normal 3.70-11.00 [facility] Comment on above: Order Comment: Speci men Type: BLOOD SPECIMENOrdering Facility: [facility] Address: [address] [place] [address] Performed By: #### 5 8410-2 ####[facility] LABIA [id number] [place] [address] [place] CNOVon 05-05-2025 [facility] JOSÉ MIGUEL YOUNG SR. ([id number]) 1965 M Date Time Provider Department 05/05/25 9:00 AM PIERCE WELLS During your visit today, we recorded the following information about you: Pulse Respiration Blood pressure Weight 78/minute 18/minute 128/80 145.1 kg Pierce Wells MD 05/05/2025 10:22 AM Signed Chief Complaint Patient presents with: F/U 1 month HPI José Miguel Owen Atilio Orona. is a 59 year old male who presents here today for 1 month follow up. Currently off on FMLA for 3 months. has applied for disability for her. 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 No bowel, Gi, or urinary issues. Hypokalemia: Diuretic induced; monitored with labs. Taking Potassium 20 mEq 1 pill BID. HTN/A-fib/CHF: Referred to Cardio, first visit on 05/09/25 with [facility], Dr. Lucio. Taking Eliquis 5 mg 1 pill BID, Atenolol 100 mg daily, Lasix 40 mg 1 pill BID, Losartan 100 mg daily, Loniten 10 mg 2 pills once daily, Procardia 30 mg daily, and Potassium 20 mEq 1 pill BID. He would like to switch to non chewable aspirin, tends to forget to take it as he takes all his pills when his teeth are not in. He wants an Rx for Tylenol. Has been taking tylenol 500 mg 2 pills TID. Still having dizziness and Shortness of Breath, dizziness every time he stands up. Denies any chest pains. Does have swelling in feet and ankles daily, improves over night, L>R. Checking BP at home with readings running 130/80 or lower. Checking Pulse and pulse ox at home, running around 93% or higher on Pulse Ox. Depression: has worsened over the last month since his health issues and inability to work. Has stress financially. He is more irritable. Is taking Lexapro 10 mg daily, feels this needs increased. Thinks about dying but denies any intention to harm himself. He is tired, doesn't sleep. When he does sleep it is only for a few hours with trouble going back to sleep. Past medical history, appointments, medications, allergies reviewed. Previous Medical History PAST MEDICAL HISTORY Diagnosis Date Unspecified essential hypertension Previous Surgical History PAST SURGICAL HISTORY Procedure Laterality Date PAST SURGICAL HISTORY OF removal cyst upper back Family History FAMILY HISTORY Problem Relation Age of Onset Diabetes Mother Hypertension Mother Stroke Father other (Lung cancer) Father Diabetes Brother Patient Allergies ALLERGIES Allergen Reactions Effexor [Venlafaxin* Mental Status Change Suicidal thoughts Gabapentin Swelling Leg swelling Amlodipine Other: See Comments leg swelling Lisinopril Cough Current Medications Current Outpatient Medications on File Prior to Visit Medication Sig furosemide (LASIX) 40 mg tablet Take 1 tablet by mouth two times a day. potassium chloride ER (KLOR-CON) 20 mEq tablet Take 1 tablet by mouth two times a day. atenolol (TENORMIN) 100 mg tablet Take 100 mg by mouth once daily. Aspirin 81 mg tab Take 81 mg by mouth once daily. apixaban (ELIQUIS) 5 mg tab(s) Take 5 mg by mouth two times a day. escitalopram oxalate (LEXAPRO) 10 mg tablet Take 1 tablet by mouth once daily. minoxidil (LONITEN) 10 mg tablet Take 2 tablets by mouth once daily. finasteride (PROSCAR) 5 mg tablet Take 1 tablet by mouth once daily. tamsulosin (FLOMAX) 0.4 mg Take 1 capsule by mouth daily at bedtime. omeprazole (PRILOSEC) 20 mg capsule Take 1 capsule by mouth daily before breakfast. 1/2 hr before meal. NIFEdipine ER (PROCARDIA XL) 30 mg 24 hr tablet Take 1 tablet by mouth once daily. guanFACINE (TENEX) 1 mg tablet Take 1 tablet by mouth daily at bedtime. losartan (COZAAR) 100 mg tablet Take 1 tablet by mouth once daily. No current facility-administered medications on file prior to visit. Social History Social History Tobacco Use Smoking status: Never Smokeless tobacco: Former Types: Chew Quit date: 10/19/2010 Tobacco comments: Quit chewing 5years Substance Use Topics Alcohol use: No Drug use: No EXAM: BP 128/80 Pulse 78 Resp 18 Wt (!) 145.1 kg (319 lb 14.2 oz) SpO2 95% BMI 49.36 kg/m? General Appearance: Well appearing, alert, in no acute distress, well-hydrated, well nourished. and Morbidly obese. Lungs: Lungs clear to auscultation. No wheezing, rhonchi, rales.. Heart: irregular. Health Maintenance List Depression Screening Never done Shingrix Vaccine(1 of 2) Never done Pneumococcal Vaccine: 50+(2 of 2 - PCV) due on 08/26/2017 Annual PCP Team Chronic Disease Visit due on 03/30/2026 Colorectal Cancer Screening due on 10/23/2027 Diabetes Screening due on 03/30/2028 Lipid Screening due on 09/12/2029 Prostate Cancer Screening Discussion due on 09/12/2029 DTaP,Tdap,Td Vaccine(3 - Td or Tdap) due on 07/03/2032 Influenza Vaccine Completed Hepatitis C Screening Discontinued HIV Screening Discontinued C (more content not included)... Normal [facility] Comprehensive metabolic 2000 panelon 05-05-2025 Albumin [Mass/Vol] 4.7 g/dL Normal 3.9-4.9 [facility] Comment on above: Order Comment: Speci men Type: BLOOD SPECIMENOrdering Facility: [facility] Address: [address] [place] [address] Performed By: #### 2 4323-8 ####[facility] LABCLIA [id number] [place] [address] [place] ALP [Catalytic activity/Vol] 55 U/L Normal 38-113 [facility] Comment on above: Order Comment: Speci men Type: BLOOD SPECIMENOrdering Facility: [facility] Address: [address] [place] [address] Performed By: #### 2 4323-8 ####[facility] LABCLIA [id number] [place] [address] [place] ALT [Catalytic activity/Vol] 20 U/L Normal 10-54 [facility] Comment on above: Order Comment: Speci men Type: BLOOD SPECIMENOrdering Facility: [facility] Address: [address] [place] [address] Performed By: #### 2 4323-8 ####[facility] LABCLIA [id number] [place] [id number] [place] Anion gap [Moles/Vol] 11 mmol/L Normal 8-15 [facility] Comment on above: Order Comment: Speci men Type: BLOOD SPECIMENOrdering Facility: [facility] Address: [address] [place] [address] Performed By: #### 2 4323-8 ####[facility] LABCLIA [id number] [address] [address] [place] AST [Catalytic activity/Vol] 32 U/L Normal 14-40 [facility] Comment on above: Order Comment: Speci men Type: BLOOD SPECIMENOrdering Facility: [facility] Address: [address] [place] [address] Performed By: #### 2 4323-8 ####[facility] LABCLIA [id number] [place] [id number] [place] Bilirubin [Mass/Vol] 1.0 mg/dL Normal 0.2-1.[address] [facility] Comment on above: Order Comment: Speci men Type: BLOOD SPECIMENOrdering Facility: [facility] Address: [address] [place] [address] Performed By: #### 2 4323-8 ####[facility] LABCLIA [id number] [place] [address] [place] Calcium [Mass/Vol] 10.2 mg/dL Normal 8.5-10.2 [facility] Comment on above: Order Comment: Speci men Type: BLOOD SPECIMENOrdering Facility: [facility] Address: [address] [place] [address] Performed By: #### 2 4323-8 ####[facility] LABCLIA [id number] [facility] [place] [id number] [place] Chloride [Moles/Vol] 99 mmol/L Normal 98-[address] [facility] Comment on above: Order Comment: Speci men Type: BLOOD SPECIMENOrdering Facility: [facility] Address: [address] [place] [address] Performed By: #### 2 4323-8 ####[facility] LABCLIA [id number] [facility] [place] [id number] [place] CO2 [Moles/Vol] 28 mmol/L Normal 22-30 [facility] Comment on above: Order Comment: Speci men Type: BLOOD SPECIMENOrdering Facility: [facility] Address: [address] [place] [address] Performed By: #### 2 4323-8 ####[facility] LABIA [id number] [place] [id number] [place] Creatinine [Mass/Vol] 0.96 mg/dL Normal 0.73-1.22 [facility] Comment on above: Order Comment: Leonie men Type: BLOOD SPECIMENOrdering Facility: [facility] Address: [address] [place] [address] Performed By: #### 2 4323-8 ####[facility] LABIA [id number] [address] [place] Creatinine and Glomerular filtration rate.predicted panel (S/P/Bld) 91 mL/min/1.73m??? Normal >=60 [facility] Comment on above: Order Comment: Leonie schultz Type: BLOOD SPECIMENOrdering Facility: [facility] Address: [address] [place] [address] Result Comment: Tata mated Glomerular Filtration Rate (eGFR) is calculated using the 2020 CKD-EPI creatinine equation. This equation utilizes serum creatinine, sex, and age as parameters. The creatinine assay has traceable calibration to isotope dilution-mass spectrometry. Refer to KDIGO guidelines for clinical interpretation. In patients with unstable renal function, e.g. those with acute kidney injury, the eGFR may not accurately reflect actual GFR. Performed By: #### 2 4323-8 ####[facility] LABIA [id number] [place] [id number] [place] Glucose [Mass/Vol] 125 mg/dL High 74-99 [facility] Comment on above: Order Comment: Leonie men Type: BLOOD SPECIMENOrdering Facility: [facility] Address: [address] [place] [address] Result Comment: The [place] Diabetes Association (ADA) provides guidance for cutoff values for fasting glucose and random glucose. The ADA defines fasting as no caloric intake for at least 8 hours. Fasting plasma glucose results between 100 to 125 mg/dL indicate increased risk for diabetes (prediabetes). Fasting plasma glucose results greater than or equal to 126 mg/dL meet the criteria for diagnosis of diabetes. In the absence of unequivocal hyperglycemia, results should be confirmed by repeat testing. In a patient with classic symptoms of hyperglycemia or hyperglycemic crisis, random plasma glucose results greater than or equal to 200 mg/dL meet the criteria for diagnosis of diabetes. Reference: Standards of Medical Care in Diabetes 2016, [place] Diabetes Association. Diabetes Care. 2016.39(Suppl 1). Performed By: #### 2 4323-8 ####[facility] LABCLIA [id number] [facility] [address] [address] [place] Potassium [Moles/Vol] 4.6 mmol/L Normal 3.7-5.1 [facility] Comment on above: Order Comment: Speci men Type: BLOOD SPECIMENOrdering Facility: [facility] Address: [address] [place] [address] Performed By: #### 2 4323-8 ####[facility] LABCLIA [id number] [place] [id number] [place] Protein [Mass/Vol] 8.0 g/dL Normal 6.3-8.0 [facility] Comment on above: Order Comment: Speci men Type: BLOOD SPECIMENOrdering Facility: [facility] Address: [address] [place] [address] Performed By: #### 2 4323-8 ####[facility] LABCLIA [id number] [facility] [place] [id number] [place] Sodium [Moles/Vol] 138 mmol/L Normal 136-144 [facility] Comment on above: Order Comment: Speci men Type: BLOOD SPECIMENOrdering Facility: [facility] Address: [address] [place] [address] Performed By: #### 2 4323-8 ####[facility] LABCLIA [id number] [facility] [address] [address] [place] Urea nitrogen [Mass/Vol] 15 mg/dL Normal 9-24 [facility] Comment on above: Order Comment: Speci men Type: BLOOD SPECIMENOrdering Facility: [facility] Address: [address] [place] [address] Performed By: #### 2 4323-8 ####[facility] LABCLIA [id number] [place] [address] [place] CNPNon 04-18-2025 CNPN Telephone (FAMPWS) -- JOSÉ MIGUEL YOUNG SR. ([id number]) 1965 M Date Time Provider Department 04/18/25 PIERCE WELLS [facility] During your visit today, we recorded the following information about you: Mona Coughlin RN 04/18/2025 12:56 PM Signed Patient's calls and states that patient's blood pressures have been all over the place. states that for the past couple of days patient has woken up with headaches. Patient also has a lot of back pain. asking if back pain could cause the elevated blood pressure. Patient's blood pressure currently is 170/110; 174/96. Advised that with patient having this elevated of blood pressure and that patient has headache patient needs to go to ED to be evaluated. voices understanding but patient does not want to go to ED. Please review and advise, KEVIN Anderson Mark D, MD 04/24/2025 5:00 PM Signed Noted Pierce Wells MD Allergies As of Date: 04/18/2025 Noted Allergy Reaction EFFEXOR (VENLAFAXINE) 06/17/2021 1 - Mental Status Change Comments: Suicidal thoughts GABAPENTIN 11/13/2017 7 - Swelling Comments: Leg swelling AMLODIPINE 06/08/2016 14 - Other: See Comments Comments: leg swelling LISINOPRIL 02/13/2016 3 - Cough Date Reviewed: 03/30/2025 Reviewed by: Ruby Lee MA - Fully Assessed Reason for Visit: Patient Update [1234] Prescriptions as of 04/24/2025 - furosemide (LASIX) 40 mg tablet Take 1 tablet by mouth two times a day. - potassium chloride ER (KLOR-CON) 20 mEq tablet Take 1 tablet by mouth two times a day. - atenolol (TENORMIN) 100 mg tablet Take 100 mg by mouth once daily. - Aspirin 81 mg tab Take 81 mg by mouth once daily. - apixaban (ELIQUIS) 5 mg tab(s) Take 5 mg by mouth two times a day. - escitalopram oxalate (LEXAPRO) 10 mg tablet Take 1 tablet by mouth once daily. - minoxidil (LONITEN) 10 mg tablet Take 2 tablets by mouth once daily. - finasteride (PROSCAR) 5 mg tablet Take 1 tablet by mouth once daily. - tamsulosin (FLOMAX) 0.4 mg Take 1 capsule by mouth daily at bedtime. - omeprazole (PRILOSEC) 20 mg capsule Take 1 capsule by mouth daily before breakfast. 1/2 hr before meal. - NIFEdipine ER (PROCARDIA XL) 30 mg 24 hr tablet Take 1 tablet by mouth once daily. - guanFACINE (TENEX) 1 mg tablet Take 1 tablet by mouth daily at bedtime. - losartan (COZAAR) 100 mg tablet Take 1 tablet by mouth once daily. Problem List As Of Date 04/18/2025 Noted Resolved Essential hypertension [I10] Tobacco use disorder [F17.200] 01/01/2011 06/29/2017 Cutaneous skin tags [L91.8] 06/01/2011 Sebaceous cyst [L72.3] 06/01/2011 Lipoma of unspecified site [D17.9] 06/22/2011 Diuretic-induced hypokalemia [E87.6, T50.2X5A] 02/22/2014 Sciatica [M54.30] 03/05/2014 Lumbago [M54.50] 03/05/2014 Digital mucous cyst [M67.449] 01/13/2016 Anxiety [F41.9] 07/18/2017 Morbid (severe) obesity due to excess calories *01/21/2018 Encounter Status:Closed by PIERCE WELLS [facility] 8623[facility] OP OVA AND PARASITES EX AM, ROUTINE These results were obtained using wet preparation(s) and trichrome stained smear. This test does not include testing for Crytosporidium parvum, Cyclospora, or Microsporidia. One negative specimen does not rule out the possibility of a parasitic infection. TESTING PERFORMED AT [facility]. ORIGINAL REPORT ON FILE IN LAB CONTAINS ADDITIONAL TEST SITE INFORMATION. Ova/Parasite Exam NO OVA, CYSTS, OR PARASITES FOUND. Normal [facility] Comment on above: Performed By: #### L 100.0100, L500.2500, M600.5000 ####[facility] [id number] [place], [address] CBC panel Auto (Bld)on 03-30 Erythrocyte distribution width (RBC) [Ratio] 13.2 % Normal 11.5-15.0 [facility] Comment on above: Order Comment: Speci men Type: BLOOD SPECIMENOrdering Facility: [facility] Address: [address] [place] [address] Performed By: #### 5 8410-2 ####[facility] LABCLIA [id number] [address] [address] [place] Hematocrit (Bld) [Volume fraction] 42.1 % Normal 39.0-51.0 [facility] Comment on above: Order Comment: Speci men Type: BLOOD SPECIMENOrdering Facility: [facility] Address: [address] [place] [address] Performed By: #### 5 8410-2 ####[facility] LABCLIA [id number] [place] [address] [place] Hemoglobin (Bld) [Mass/Vol] 13.9 g/dL Normal 13.0-17.0 [facility] Comment on above: Order Comment: Speci men Type: BLOOD SPECIMENOrdering Facility: [facility] Address: [address] [place] [address] Performed By: #### 5 8410-2 ####[facility] LABIA [id number] [place] [address] [place] MCH (RBC) [Entitic mass] 28.7 pg Normal 26.0-34.0 [facility] Comment on above: Order Comment: Speci men Type: BLOOD SPECIMENOrdering Facility: [facility] Address: [address] [place] [address] Performed By: #### 5 8410-2 ####[facility] [id number] [address] [place] MCHC (RBC) [Mass/Vol] 33.0 g/dL Normal 30.5-36.0 [facility] Comment on above: Order Comment: Speci men Type: BLOOD SPECIMENOrdering Facility: [facility] Address: [address] [place] [address] Performed By: #### 5 8410-2 ####[facility] [id number] [place] [address] [place] MCV (RBC) [Entitic vol] 86.8 fL Normal 80.0-100.0 [facility] Comment on above: Order Comment: Speci men Type: BLOOD SPECIMENOrdering Facility: [facility] Address: [address] [place] [address] Performed By: #### 5 8410-2 ####[facility] [id number] [place] [address] [place] Nucleated RBC (Bld) [#/Vol] 10*3/uL Normal <0.01 [facility] Comment on above: Order Comment: Speci men Type: BLOOD SPECIMENOrdering Facility: [facility] Address: [address] [place] [address] Performed By: #### 5 8410-2 ####[facility] LABCLIA [id number] [address] [address] [place] Platelet mean volume (Bld) [Entitic vol] 10.2 fL Normal 9.0-12.7 [facility] Comment on above: Order Comment: Speci men Type: BLOOD SPECIMENOrdering Facility: [facility] Address: [address] [place] [address] Performed By: #### 5 8410-2 ####[facility] LABIA [id number] [place] [address] [place] Platelets (Bld) [#/Vol] 291 10*3/uL Normal 150-400 [facility] Comment on above: Order Comment: Speci men Type: BLOOD SPECIMENOrdering Facility: [facility] Address: [address] [place] [address] Performed By: #### 5 8410-2 ####[facility] LABIA [id number] [place] [address] [place] RBC (Bld) [#/Vol] 4.85 10*6/uL Normal 4.20-6.00 [facility] Comment on above: Order Comment: Speci men Type: BLOOD SPECIMENOrdering Facility: [facility] Address: [address] [place] [address] Performed By: #### 5 8410-2 ####[facility] LABIA [id number] [place] [address] [place] WBC (Bld) [#/Vol] 5.18 10*3/uL Normal 3.70-11.00 [facility] Comment on above: Order Comment: Speci men Type: BLOOD SPECIMENOrdering Facility: [facility] Address: [address] [place] [address] Performed By: #### 5 8410-2 ####[facility] DANIEL [id number] [place] [address] [place] [facility] CNOVon 03-30-2025 CNOV Office Visit (FAMPWS ) -- JOSÉ MIGUEL YOUNG SR. ([id number]) 1965 M Date Time Provider Department 03/30/25 2:20 PM [facility] During your visit today, we recorded the following information about you: Pulse Respiration Blood pressure Weight 82/minute 16/minute 120/74 146.9 kg Pierce Wells MD 03/30/2025 3:11 PM Signed Transitional Care Management TCM Eligibility Documentation The following information was gathered during patient outreach 03/23/2025 03/23/2025 Date of Outreach: Outreach Attempt 1: Contact Made Contact Made Date of Discharge 03/22/2025 03/22/2025 Provider Documentation José Miguel Young Sr. is a 59 year old male here today for a follow up from recent hospitalization. I have reviewed the patient's hospital course including discharge summary, discharge medications , and follow up needs with the patient and any family members present at today's visit. HPI 10 day TCM Pt feels like his energy level is improving. Pt referred to Cardiology for A-fib, pt requested to stay with [facility] as [facility] has not returned their multiple calls. Having difficulty finding provider who takes their insurance. Pt was advised to increase Lasix from 20 mg every other day to 40 mg 1 pill BID and started on Potassium chloride 20 mEq 1 pill BID. Swelling in legs has improved. Per spouse, Patient started on Eliquis 5 mg twice daily, D/C Aspirin 325 mg daily, Start Baby ASA 81 mg daily, D/C atenolol with chlorthalidone, Start atenolol 100 mg daily, and D/C ibuprofen 800 mg. No chest pains, dizziness, or SOB. Spouse dropping off paperwork for FMLA and has also applied for Social Security Disability. Pt thought he had short term disability through work but found out he doesn't. He was advised that since he is on the blood thinner now that he needs to be careful not to hit his head and that if he does he needs to seek immediate treatment at an ER. 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 Pt doesn't feel he should return to work until he knows his health is better and not going to harm others. Below copied from [employer]: Chief Complaint: Shortness of Breath Informant: patient Onset/Context/Timing Onset: Days Context: Gradual Onset Timing: Continuous Worsened by: exertion Narrative Narrative: Patient presents for shortness of breath. Recent admission with an echocardiogram and he was told he had CHF. He takes Lasix every other day and has been compliant. He is also compliant with his anticoagulation which he started for atrial fibrillation. He is denying any chest pain, fever, GI symptoms. 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 Medical decision making narrative: Patient had an EKG that I interpreted. It showed atrial fibrillation with no evidence of ischemia or infarction pattern. He was placed on the monitor. He was found to be hypoxic in the upper 80s on room air and required 2 L nasal cannula. Everything sounded more like cardiac, heart failure. He did not have infectious symptoms and did not have chest pain. He is compliant with his Eliquis so PE was felt to be unlikely. Patient later required 3 L of nasal cannula. This is new for him. His workup looked pretty good. Troponin was normal. BNP is elevated but stable. Chest x-ray was reviewed by me and the radiologist. Showed pulmonary edema pattern. Patient was treated with a dose of Lasix here. He is taking Lasix every other day and I believe he needs more aggressive diuresis. However his creatinine is starting to elevate. It is 1.3 here today which was elevated from his baseline. I suspect this will continue to rise with further treatment. He is requiring oxygen and will need close monitoring. I contacted the hospitalist to admit for further care. Patient will be admitted for observation to PCU. Impression #1 CHF Impression #2 hypoxic respiratory failure Impression #3 elevated creatinine Minutes Spent on Discharge: 45 Hospital Course: Patient is a 59-year-old male with a past medical history as outlined was admitted to the ED on 03/18/2025 with a complaint of shortness of breath. His symptoms started about 1 to 2 days prior to admission and he had associated persistent shortness of breath. Symptoms were worsened by exertion with respiratory rate of 33 breaths/min. He was requiring 3 L of oxygen at time of admission. His initial blood pressure was also markedly elevated at 194/104. CT chest showed bilateral pleural e (more content not included)... Normal [facility] Comprehensive metabolic 2000 panelon 03-30-2025 Albumin [Mass/Vol] 4.5 g/dL Normal 3.9-4.9 [facility] Comment on above: Order Comment: Speci men Type: BLOOD SPECIMENOrdering Facility: [facility] Address: [address] [place] [address] Performed By: #### 2 4323-8 ####[facility] LABCLIA [id number] [place] [address] [place] ALP [Catalytic activity/Vol] 52 U/L Normal 38-113 [facility] Comment on above: Order Comment: Speci men Type: BLOOD SPECIMENOrdering Facility: [facility] Address: [address] [place] [address] Performed By: #### 2 4323-8 ####[facility] LABCLIA [id number] [place] [address] [place] ALT [Catalytic activity/Vol] 27 U/L Normal 10-54 [facility] Comment on above: Order Comment: Speci men Type: BLOOD SPECIMENOrdering Facility: [facility] Address: [address] [place] [address] Performed By: #### 2 4323-8 ####[facility] LABCLIA [id number] [facility] [address] [place] [address] [place] Anion gap [Moles/Vol] 12 mmol/L Normal 8-15 [facility] Comment on above: Order Comment: Speci men Type: BLOOD SPECIMENOrdering Facility: [facility] Address: [address] [place] [address] Performed By: #### 2 4323-8 ####[facility] LABCLIA [id number] [facility] [address], [facility] [place] AST [Catalytic activity/Vol] 38 U/L Normal 14-40 [facility] Comment on above: Order Comment: Speci men Type: BLOOD SPECIMENOrdering Facility: [facility] Address: [address] [place] [address] Performed By: #### 2 4323-8 ####[facility] LABCLIA [id number] [place] [address] [place] Bilirubin [Mass/Vol] 0.6 mg/dL Normal 0.2-1.[address] [facility] Comment on above: Order Comment: Speci men Type: BLOOD SPECIMENOrdering Facility: [facility] Address: [address] [place] [address] Performed By: #### 2 4323-8 ####[facility] LABCLIA [id number] [facility] [place] [id number] [place] Calcium [Mass/Vol] 9.6 mg/dL Normal 8.5-10.2 [facility] Comment on above: Order Comment: Speci men Type: BLOOD SPECIMENOrdering Facility: [facility] Address: [address] [place], [place] [address] Performed By: #### 2 4323-8 ####[facility] LABCLIA [id number] [facility] [place] [id number] [place] Chloride [Moles/Vol] 103 mmol/L Normal 98-[address] [facility] Comment on above: Order Comment: Speci men Type: BLOOD SPECIMENOrdering Facility: [facility] Address: [address] [place] [address] Performed By: #### 2 4323-8 ####[facility] LABCLIA [id number] [address] [address] [place] CO2 [Moles/Vol] 26 mmol/L Normal 22-30 [facility] Comment on above: Order Comment: Speci men Type: BLOOD SPECIMENOrdering Facility: [facility] Address: [address] [place] [address] Performed By: #### 2 4323-8 ####[facility] LABIA [id number] [address] STATES OF [facility] Creatinine [Mass/Vol] 0.98 mg/dL Normal 0.73-1.22 [facility] Comment on above: Order Comment: Speci men Type: BLOOD SPECIMENOrdering Facility: [facility] Address: [address] [place] [address] Performed By: #### 2 4323-8 ####[facility] LABIA [id number] [address] Creatinine and Glomerular filtration rate.predicted panel (S/P/Bld) 89 mL/min/1.73m??? Normal >=60 [facility] Comment on above: Order Comment: Speci men Type: BLOOD SPECIMENOrdering Facility: [facility] Address: [address] [place] [address] Result Comment: Tata mated Glomerular Filtration Rate (eGFR) is calculated using the 2020 CKD-EPI creatinine equation. This equation utilizes serum creatinine, sex, and age as parameters. The creatinine assay has traceable calibration to isotope dilution-mass spectrometry. Refer to KDIGO guidelines for clinical interpretation. In patients with unstable renal function, e.g. those with acute kidney injury, the eGFR may not accurately reflect actual GFR. Performed By: #### 2 4323-8 ####[facility] LABCLIA [id number] [address] [address] [place] Glucose [Mass/Vol] 98 mg/dL Normal 74-99 [facility] Comment on above: Order Comment: Speci men Type: BLOOD SPECIMENOrdering Facility: [facility] Address: [address] [place] [address] Result Comment: The [place] Diabetes Association (ADA) provides guidance for cutoff values for fasting glucose and random glucose. The ADA defines fasting as no caloric intake for at least 8 hours. Fasting plasma glucose results between 100 to 125 mg/dL indicate increased risk for diabetes (prediabetes). Fasting plasma glucose results greater than or equal to 126 mg/dL meet the criteria for diagnosis of diabetes. In the absence of unequivocal hyperglycemia, results should be confirmed by repeat testing. In a patient with classic symptoms of hyperglycemia or hyperglycemic crisis, random plasma glucose results greater than or equal to 200 mg/dL meet the criteria for diagnosis of diabetes. Reference: Standards of Medical Care in Diabetes 2016, [place] Diabetes Association. Diabetes Care. 2016.39(Suppl 1). Performed By: #### 2 4323-8 ####[facility] LABIA [id number] [place] [id number] [place] Potassium [Moles/Vol] 4.4 mmol/L Normal 3.7-5.1 [facility] Comment on above: Order Comment: Speci men Type: BLOOD SPECIMENOrdering Facility: [facility] Address: [address] [place] [address] Performed By: #### 2 4323-8 ####[facility] LABIA [id number] [place] [id number] [place] Protein [Mass/Vol] 8.1 g/dL High 6.3-8.0 [facility] Comment on above: Order Comment: Speci men Type: BLOOD SPECIMENOrdering Facility: [facility] Address: [address] [place] [address] Performed By: #### 2 4323-8 ####[facility] LABIA [id number] [place] [id number] [place] Sodium [Moles/Vol] 141 mmol/L Normal 136-144 [facility] Comment on above: Order Comment: Speci men Type: BLOOD SPECIMENOrdering Facility: [facility] Address: [address] [place] [address] Performed By: #### 2 4323-8 ####[facility] LABCLIA [id number] [place] [address] [place] Urea nitrogen [Mass/Vol] 17 mg/dL Normal 9-24 [facility] Comment on above: Order Comment: Speci men Type: BLOOD SPECIMENOrdering Facility: [facility] Address: [address] [place] [address] Performed By: #### 2 4323-8 ####[facility] LABCLIA [id number] [place] [id number] [facility] CNPFlaca 03-27-2025 [facility] -- JOSÉ MIGUEL YOUNG SR. ([id number]) 1965 M Date Time Provider Department 03/27/25 [facility] During your visit today, we recorded the following information about you: Madison Marie MA 03/27/2025 2:51 PM Signed Type of form: FMLA Form received via walk in When form is completed, Pt has upcoming appt on 03/30/25 for hospital follow up Form has been forwarded to upcoming appt folder. YULISSA Peng Amanda, RN 04/03/2025 9:42 AM Signed Pts called in asking if FMLA paperwork had been faxed to the number on it. Please call and let know if it has been taken care of. KEVIN Napoles Kathryn, MA 04/03/2025 10:02 AM Signed Spoke with Blanca, she will worm picker paperwork. Copy made for records, originals at med rec. Ruby Lee MA Allergies As of Date: 03/27/2025 Noted Allergy Reaction EFFEXOR (VENLAFAXINE) 06/17/2021 1 - Mental Status Change Comments: Suicidal thoughts GABAPENTIN 11/13/2017 7 - Swelling Comments: Leg swelling AMLODIPINE 06/08/2016 14 - Other: See Comments Comments: leg swelling LISINOPRIL 02/13/2016 3 - Cough Date Reviewed: 03/25/2025 Reviewed by: Malissa Amaya RN - Fully Assessed Reason for Visit: Forms [913] Cmt: FMLA Prescriptions as of 04/03/2025 - furosemide (LASIX) 40 mg tablet Take 1 tablet by mouth two times a day. - potassium chloride ER (KLOR-CON) 20 mEq tablet Take 1 tablet by mouth two times a day. - atenolol (TENORMIN) 100 mg tablet Take 100 mg by mouth once daily. - Aspirin 81 mg tab Take 81 mg by mouth once daily. - apixaban (ELIQUIS) 5 mg tab(s) Take 5 mg by mouth two times a day. - escitalopram oxalate (LEXAPRO) 10 mg tablet Take 1 tablet by mouth once daily. - minoxidil (LONITEN) 10 mg tablet Take 2 tablets by mouth once daily. - finasteride (PROSCAR) 5 mg tablet Take 1 tablet by mouth once daily. - tamsulosin (FLOMAX) 0.4 mg Take 1 capsule by mouth daily at bedtime. - omeprazole (PRILOSEC) 20 mg capsule Take 1 capsule by mouth daily before breakfast. 1/2 hr before meal. - NIFEdipine ER (PROCARDIA XL) 30 mg 24 hr tablet Take 1 tablet by mouth once daily. - guanFACINE (TENEX) 1 mg tablet Take 1 tablet by mouth daily at bedtime. - losartan (COZAAR) 100 mg tablet Take 1 tablet by mouth once daily. Problem List As Of Date 03/27/2025 Noted Resolved Essential hypertension [I10] Tobacco use disorder [F17.200] 01/01/2011 06/29/2017 Cutaneous skin tags [L91.8] 06/01/2011 Sebaceous cyst [L72.3] 06/01/2011 Lipoma of unspecified site [D17.9] 06/22/2011 Diuretic-induced hypokalemia [E87.6, T50.2X5A] 02/22/2014 Sciatica [M54.30] 03/05/2014 Lumbago [M54.50] 03/05/2014 Digital mucous cyst [M67.449] 01/13/2016 Anxiety [F41.9] 07/18/2017 Morbid (severe) obesity due to excess calories *01/21/2018 Encounter Status:Closed by RUBY LEE on 04/03/25 Normal [facility] ENTERIC PATHOGEN PANEL STOOL on 03-26-2025 EP PANEL Is the patient recei ving laxatives? N New/unexplained onset of 3 or more stools in past 24 hrs? Y Normal Reference Range = Not Detected Nucleic acid amplification test method CRITICAL VALUE CALLED TO ALESSANDRO 03/26/25 0117 [place]. RESULTS READ BACK BY SAME. CAMPYLOBACTER Not Detected Norovirus Not Detected Rotavirus A Rotavirus Detected A Salmonella Not Detected Shiga Toxin Not Detected Shigella sp. Not Detected VIBRIO Not Detected Yersinia Not Detected Rotavirus Normal [facility] Comment on above: Performed By: #### M 100.0605, M100.6796, M100.6795, M100.637 ####[facility] [address] [facility] [place], [address] 12 Lead EKGon 03-25-2025 12 Lead EKG [facility]ovascular Services [address] [place] [address] 12 Lead EKG 03/25/25 1722 MR#: [id number] Acct: [id number] Name: JOSÉ MIGUEL YOUNG Sr. Rep #: [id number] : 1965 59 From: Dimitris Lucio MD Attending Dr: Status: DEP ER Ordering Dr: Fina Adame Date: 03/25/25 Location: ED Sex: M C Admitted: Test Reason : Blood Pressure : */* mmHG Vent. Rate : 93 BPM Atrial Rate : * BPM P-R Int : * ms QRS Dur : 82 ms QT Int : 380 ms P-R-T Axes : * 150 50 degrees QTcB Int : 472 ms Atrial fibrillation Left posterior fascicular block Abnormal ECG Confirmed by DIMITRIS LUCIO MD ([id number]), online content editor TIA YUSUF ([id number]) on 03/26/2025 9:28:08 AM Referred By: Confirmed By: DIMITRIS LUCIO MD 03/26/25927 Date Dimitris Lucio MD CC: Dr. Jhonny Evans DO; Dr. Pierce Wells MD; CALVIN Ramirez Signed Normal [facility] Absolute lymphocyte countOrd ered By: Fina Adame on 03-25-2025 Lymphocytes Auto (Unsp spec) [#/Vol] 2.12 10*3/uL 0.83-4.51 [facility] Absolute neutrophil countOrd ered By: Fina Adame on 03-25-2025 Neutrophils (Bld) [#/Vol] 1.8 10*3/uL Low 2.0-7.7 [facility] Anion gap in Serum or Plasma Ordered By: Fina Adame on 03-25-2025 Anion gap [Moles/Vol] 8 mmol/L 03-22 [facility] Automated lymphocyte count a s percentage of total leukocytesOrdered By: Fina Adame on 03-25-2025 Lymphocytes/100 WBC Auto (Unsp spec) 48.1 % High [facility] BUN/creatinine ratioOrdered By: Fina Adame on 03-25-2025 Urea nitrogen/Creatinine [Mass ratio] 17.5 mg/mg 08-27 [facility] Basic Metabolic Profile (BMP )on 03-25-2025 BUN/CRE 17.5 RATIO Normal 08-27 [facility] Comment on above: Performed By: #### L 100.0100, L500.2500, M600.5000 ####[facility] [address] [place], [address] Calcium [Mass/Vol] 5.5 mg/dL Invalid Interpretation Code 7.6-11.0 [facility] Comment on above: Result Comment: Crit ical Result(s) Called at: by:??Results read back by same. Performed By: #### L 100.0100, L500.2500, M600.5000 ####[facility] [address] [place], [address] Chloride [Moles/Vol] 119 mmol/L High 98-108 [facility] Comment on above: Performed By: #### L 100.0100, L500.2500, M600.5000 ####[facility] [address] [place], [address] CO2 [Moles/Vol] 14.4 mmol/L Low 21.0-32.0 [facility] Comment on above: Performed By: #### L 100.0100, L500.2500, M600.5000 ####[facility] [address] [place], [address] Creatinine [Mass/Vol] 0.61 mg/dL Low 0.70-1.20 [facility] Comment on above: Performed By: #### L 100.0100, L500.2500, M600.5000 ####[facility] [address] [place], [address] GAP 8 Normal 5-15 [facility] Comment on above: Performed By: #### L 100.0100, L500.2500, M600.5000 ####[facility] [address] [place], [address] GFR/1.73 sq M.predicted among non-blacks MDRD (S/P/Bld) [Vol rate/Area] 111 mL/min/{1.73_m2} Normal >60 [facility] Comment on above: Result Comment: mL/m in/1.73m2 CKD-EPI Creatinine Equation (2020) Performed By: #### L 100.0100, L500.2500, M600.5000 ####[facility] [address] [place], [address] Glucose [Mass/Vol] 67 mg/dL Low 70-99 [facility] Comment on above: Performed By: #### L 100.0100, L500.2500, M600.5000 ####[facility] [address] [place], [address] Potassium [Moles/Vol] 2.6 mmol/L Invalid Interpretation Code 3.3-5.1 [facility] Comment on above: Result Comment: Crit ical Result(s) Called at: 03/25/25-17:07 by: Alex Roldan to Jan Timmons.??Results read back by same. Performed By: #### L 100.0100, L500.2500, M600.5000 ####[facility] [address] [place], [address] Sodium [Moles/Vol] 141 mmol/L Normal 133-145 [facility] Comment on above: Performed By: #### L 100.0100, L500.2500, M600.5000 ####[facility] [address] [place], [address] Urea nitrogen [Mass/Vol] 11 mg/dL Normal 4-19 [facility] Comment on above: Performed By: #### L 100.0100, L500.2500, M600.5000 ####[facility] [address] [place], [address] Basophil percentageOrdered B y: Fina Adame on 03-25-2025 Basophils/100 WBC (Bld) 0.9 % 0-1 [facility] Bilirubin Test strip Ql (U)O rdered By: Fina Adame on 03-25-2025 Bilirubin Ql (U) Negative Negative [facility] CBC W/Diff, Automatedon 03-08 Absolute Lymph 2.12 X10 3/uL Normal 0.83-4.51 [facility] Comment on above: Performed By: #### L 100.0100, L500.2500, M600.5000 ####[facility] [address] [place], [address] Absolute Neut 1.8 X10 3/uL Low 2.0-7.7 [facility] Comment on above: Performed By: #### L 100.0100, L500.2500, M600.5000 ####[facility] [address] [place], [address] Basophils/100 WBC (Bld) 0.9 % Normal 0-1 [facility] Comment on above: Performed By: #### L 100.0100, L500.2500, M600.5000 ####[facility] [address] [place], [address] Eosinophils/100 WBC (Bld) 1.6 % Normal 0-5 [facility] Comment on above: Performed By: #### L 100.0100, L500.2500, M600.5000 ####[facility] [address] [place], [address] Erythrocyte distribution width (RBC) [Ratio] 13.3 % Normal 11.6-14.6 [facility] Comment on above: Performed By: #### L 100.0100, L500.2500, M600.5000 ####[facility] [address] [place], [address] Hematocrit (Bld) [Volume fraction] 43.1 % Normal 40-54 [facility] Comment on above: Performed By: #### L 100.0100, L500.2500, M600.5000 ####[facility] [address] [place], [address] Hemoglobin (Bld) [Mass/Vol] 14.4 g/dL Normal 13.0-16.5 [facility] Comment on above: Performed By: #### L 100.0100, L500.2500, M600.5000 ####[facility] [address] [place], [address] IG% 0.200 Normal 0.0-0.9 [facility] Comment on above: Result Comment: IG% - Immature Granulocytes (promyelocytes, myelocytes and metamyelocytes) > 1% indicates that a LEFT SHIFT is Present. Performed By: #### L 100.0100, L500.2500, M600.5000 ####[facility] [address] [place], [address] Lymphocytes/100 WBC (Bld) 48.1 % High 19-41 [facility] Comment on above: Performed By: #### L 100.0100, L500.2500, M600.5000 ####[facility] [address] [place], [address] MCH (RBC) [Entitic mass] 28.2 pg Normal 27.0-32.0 [facility] Comment on above: Performed By: #### L 100.0100, L500.2500, M600.5000 ####[facility] [address] [place], [address] MCHC (RBC) [Mass/Vol] 33.4 g/dL Normal 32-36 [facility] Comment on above: Performed By: #### L 100.0100, L500.2500, M600.5000 ####[facility] [address] [place], [address] MCV (RBC) [Entitic vol] 84.3 fL Normal 80-94 [facility] Comment on above: Performed By: #### L 100.0100, L500.2500, M600.5000 ####[facility] [address] [place], [address] Monocytes/100 WBC (Bld) 9.1 % Normal 0-10 [facility] Comment on above: Performed By: #### L 100.0100, L500.2500, M600.5000 ####[facility] [address] [place], [address] Neutrophils/100 WBC (Bld) 40.1 % Low 47-70 [facility] Comment on above: Performed By: #### L 100.0100, L500.2500, M600.5000 ####[facility] [address] [place], [address] Nucleated RBC (Bld) [#/Vol] 0 10*3/uL Normal 0-5 [facility] Comment on above: Performed By: #### L 100.0100, L500.2500, M600.5000 ####[facility] [address] [place], [address] Platelet mean volume (Bld) [Entitic vol] 9.6 fL Normal 6.2-12.0 [facility] Comment on above: Performed By: #### L 100.0100, L500.2500, M600.5000 ####[facility] [address] [place], [address] Platelets (Bld) [#/Vol] 256 10*3/uL Normal 150-450 [facility] Comment on above: Performed By: #### L 100.0100, L500.2500, M600.5000 ####[facility] [address] [place], [address] RBC (Bld) [#/Vol] 5.11 10*6/uL Normal 4.6-6.2 [facility] Comment on above: Performed By: #### L 100.0100, L500.2500, M600.5000 ####[facility] [address] [place], [address] RDW SD 41.2 fl Normal 35.1-43.9 [facility] Comment on above: Performed By: #### L 100.0100, L500.2500, M600.5000 ####[facility] [address] [place], [address] WBC (Bld) [#/Vol] 4.4 10*3/uL Normal 4.4-11.0 [facility] Comment on above: Performed By: #### L 100.0100, L500.2500, M600.5000 ####[facility] [address] [place], [address] CDIFF (PCR)on 03-25-2025 CDIFF Is the patient recei ving laxatives? N New/unexplained onset of 3 or more stools in past 24 hrs? Y A positive C. difficile molecular test does not differentiate between an active C. difficile infection and C. difficile colonization. Use clinical judgement and paired toxin/antigen testing to identify true infection and need for treatment. C diff DNA Spec Ql PATRICIA+probe Reference Range: Negative [employer] GeneXpert: polymerase chain reaction (PCR) 027 027 NAP1-B1 Presumptive Negative *for epidemiolologic???use C. Diff PCR A Positive-Toxigenic C. Difficile Detected A Normal [facility] Comment on above: Performed By: #### M 100.0605, M100.6796, M100.6795, M100.637 ####[facility] [address] [place], [address] Carbon dioxide, total [Moles /volume] in Central venous bloodOrdered By: Fina Adame on 03-25-2025 CO2 [Moles/Vol] 14.4 mmol/L Low 21.0-32.0 [facility] Chloride assayOrdered By: Rea Adame on 03-25-2025 Chloride [Moles/Vol] 119 mmol/L High 98-108 [facility] Clostridium Diff Toxin/Agon 03-25-2025 CDIFF (EIA) Is the patient recei ving laxatives? N New/unexplained onset of 3 or more stools in past 24 hrs? Y Interpretation of C. diff by EIA Method C diff Stl Ql POS for Antigen and NEG for Toxin = Positive for toxigenic C. Difficile gene but the active toxin production NOT detected. May be a colonized carrier or toxin level is below limit of detection. C. difficile Antigen A Positive C. diff A/B Antigen A C. difficile Toxin Negative C. diff Toxin Normal [facility] Comment on above: Performed By: #### M 100.0605, M100.4286, M100.6427, [id number] ####[facility] [address] [place], [address] Clostridium difficile detect ion by polymerase chain reactionOrdered By: Fina Adame on 03-25-2025 C. difficile DNA PATRICIA+probe Ql (Unsp spec) [facility] Emergency Department Summary on 03-25-2025 Emergency Department Summary [facility] Medical Records Department [address] [place] [address] Emergency Department Summary 03/25/25 MR#: [id number] Acct: [id number] Name: JOSÉ MIGUEL YOUNG . Rep #: [id number] : 1965 59 From: Fina SIMPSON PCP: Dr. Pierce Wells MD Status:DEP ER Location: ED HPI History of Present Illness Chief Complaint: Diarrhea Narrative Narrative: Patient presenting today due to diarrhea he has had since . He reports that he is having multiple bouts daily. He denies any history of C. difficile. He reports that he had antibiotics about a month ago for cellulitis but is unsure what he was on. He denies any abdominal pain, fevers, chills, nausea, vomiting, and blood in the stool. He denies history of diverticulitis. He has a PMH of CHF and recently was discharged from the hospital on due to CHF exacerbation. He has been doing well in that aspect since being home. [facility] Medical History Obesity hypoventilation syndrome Lymphedema Morbid obesity Shoulder pain HTN (hypertension) Home Medications ???Medication ???Instructions ???Recorded ???Last Taken ???Type guanfacine 1 mg tablet 1 tablet PO QPM BLOOD PRESSURE 30 05/09/18 03/01/25 History days ##30 minoxidil 10 mg tablet 20 mg PO DAILY HAIR GROWTH 9 03/02/25 History finasteride 5 mg tablet 5 mg PO QPM 03/02/25 03/01/25 Hist ory losartan 100 mg tablet 100 mg PO DAILY 03/02/25 03/02/25 History nifedipine 30 mg tablet,extended 30 mg PO DAILY 03/02/25 03/02/25 H istory release 24 hr omeprazole 20 mg capsule,delayed 20 mg PO DAILY 03/02/25 03/02/25 H istory release tamsulosin 0.4 mg capsule 0.4 mg PO QHS 03/02/25 03/01/25 Hi story apixaban 5 mg tablet (Eliquis) 5 mg PO BID 30 days #60 tabs 03/05 Unknown Rx aspirin 81 mg chewable tablet 81 mg PO DAILY@0800 30 days #30 Unknown Rx tabs atenolol 100 mg tablet 100 mg PO DAILY 30 days #30 tabs 0 03/05/25 Unknown Rx escitalopram oxalate 10 mg tablet 10 mg PO DAILY 03/18/25 Unknown H istory furosemide 40 mg tablet 40 mg PO BID #60 tabs 03/22/25 Unk nown Rx potassium chloride 20 mEq 20 meq PO BID #60 tabs 03/22/25 Un known Rx tablet,extended release Allergy/AdvReac Type Severity Reaction Status Date / Time No Known Allergies Allergy Verified 03/25/25 16:13 Social History Smoking Status: Never smoker alcohol intake: never ROS ROS ED Constitutional Constitutional ED: Denies chills or fever(s) Cardiovascular Cardiovascular: Denies chest pain Respiratory/Chest Respiratory/Chest: Denies dyspnea Gastrointestinal Gastrointestinal: Reports diarrhea; Denies abdominal pain, hematochezia, melena, nausea or vomiting Genitourinary Genitourinary ED: Reports urinary frequency; Denies dysuria or hematuria Integumentary Denies rash Neurologic Neurologic: Denies weakness EXAM Physical Exam Const Vital Signs: 03/25/25 16:13 03/25/25 18:13 03/25/25 20:00 Temperature 97.6 F L Temperature Source Temporal Pulse Rate 88 88 Respiratory Rate 86 H 12 19 H Blood Pressure 171/95 H 116/64 Blood Pressure Mean 120 81 Pulse Ox 28 97 96 Oxygen Delivery Method Room Air Room Air 03/25/25 22:00 03/25/25 22:26 Temperature 97.6 F L Temperature Source Pulse Rate 82 95 Respiratory Rate 20 H 19 H Blood Pressure 102/64 102/64 Blood Pressure Mean 76 76 Pulse Ox 93 94 Oxygen Delivery Method Room Air Positive well nourished, well developed and no apparent distress General Appearance ED: well developed HEENT Reports normocephalic and head/scalp atraumatic Mouth ED: Yes moist mucous membranes normal Eyes PERRL and EOMs intact bilaterally Neck full ROM and supple Chest Wall inspection of chest normal Resp normal respiratory effort and clear to auscultation bilaterally Cardio regular rate and regular rhythm GI soft to palpation, non-tender, non-distended and no masses Back/Spine normal ROM and normal to inspection Extremity normal to inspection and full ROM Neuro oriented x3, CN's II-XII intact bilaterally, moves all extremities, no focal motor deficits and no sensory deficits noted Sensorium / Orientation: awake and alert Psych mental status grossly normal and thought process normal Skin no rashes or lesions noted and no wounds Physical Exam Const Vital Signs: 03/25/25 16:13 03/25/25 18:13 03/25/25 20:00 Temperature 97.6 F L Temperature Source Temporal Pulse Rate 88 88 Respiratory Rate 86 H 12 19 H Blood Pressure 171/95 H 116/64 Blood Pressure Mean 120 81 Pulse Ox 28 97 96 Oxygen D (more content not included)... Normal [facility] Eosinophil percentageOrdered By: Fina Adame on 03-25-2025 Eosinophils/100 WBC (Bld) 1.6 % 0-5 [facility] Erythrocyte distribution wid th ratioOrdered By: Fina Adame on 03-25-2025 Erythrocyte distribution width (RBC) [Ratio] 13.3 % 11.6-14.6 [facility] Erythrocyte distribution wid th standard deviationOrdered By: Fina Adaem on 03-25-2025 Erythrocyte distribution width (RBC) [Ratio] 41.2 fl 35.1-43.9 [facility] Glomerular filtration rate ( GFR) estimation/1.73 sq m using serum, plasma, or whole bOrdered By: Fina Adame on 03-25-2025 GFR/1.73 sq M.predicted among non-blacks MDRD (S/P/Bld) [Vol rate/Area] 111 mL/min/{1.73_m2} >60 [facility] Comment on above: mL/min/1.73m2 CKD-EP I Creatinine Equation (2020) Hematocrit Auto (Bld) [Volum e fraction]Ordered By: Fina Adame on 03-25-2025 Hematocrit (Bld) [Volume fraction] 43.1 % 40-54 [facility] Hemoglobin measurementOrdere d By: Fina Adame on 03-25-2025 Hemoglobin (Bld) [Mass/Vol] 14.4 g/dL 13.0-16.5 [facility] Immature granulocytes/100 WB C Auto (Bld)Ordered By: Fina Adame on 03-25-2025 Immature granulocytes/100 WBC (Bld) 0.200 % 0.0-0.9 [facility] Comment on above: IG% - Immature Granu locytes (promyelocytes, myelocytes and metamyelocytes) > 1% indicates that a LEFT SHIFT is Present. Ketones Test strip Ql (U)Ord ered By: Fina Adame on 03-25-2025 Ketones Ql (U) Negative Negative [facility] L501.2276on 03-25-2025 Ionized Calcium 1.19 mmol/L Normal 1.09-1.30 [facility] Comment on above: Performed By: #### L 501.2276 ####[facility] [address] [facility] [place], [address] MCV (mean corpuscular volume ) determinationOrdered By: Fina Adame on 03-25-2025 MCV (RBC) [Entitic vol] 84.3 fL 80-94 [facility] Magnesiumon 03-25-2025 Magnesium [Mass/Vol] 2.4 mg/dL High 1.5-2.2 [facility] Comment on above: Performed By: #### L 501.5200, L501.5600 ####[facility] [address] [facility] [place], [address] Magnesium [Mass/Vol] 1.2 mg/dL Low 1.5-2.2 [facility] Comment on above: Performed By: #### L 501.5200 ####[facility] [address] [place], [address] Magnesium measurement (mass/ volume)Ordered By: Fina Adame on 03-25-2025 Magnesium (Unsp spec) [Mass/Vol] 2.4 mg/dL High 1.5-2.2 [facility] Mean corpuscular hemoglobin (MCH) determinationOrdered By: Fina Adame on 03-25-2025 MCH (RBC) [Entitic mass] 28.2 pg 27.0-32.0 [facility] Mean corpuscular hemoglobin concentration (MCHC) determinationOrdered By: Fina Adame on 03-25-2025 MCHC (RBC) [Mass/Vol] 33.4 g/dL 32-36 [facility] Mean platelet volume determi nationOrdered By: Fina Adame on 03-25-2025 Platelet mean volume (Bld) [Entitic vol] 9.6 fL 6.2-12.0 [facility] Microscopic analysis of urin e for red blood cells (RBC)Ordered By: Fina Adame on 03-25-2025 Microscopic analysis of urine for red blood cells (RBC) 0 SEEN /hpf 0-5 [facility] Monocyte percentageOrdered B y: Fina Adame on 03-25-2025 Monocytes/100 WBC (Bld) 9.1 % 0-10 [facility] Mucus LM Ql (Urine sed)Order ed By: Fina Adame on 03-25-2025 Mucus Ql (Urine sed) 0 SEEN /hpf [facility] Neutrophil percentageOrdered By: Fina Adame on 03-25-2025 Neutrophils/100 WBC (Bld) 40.1 % Low 47-70 [facility] Nitrite Test strip Ql (U)Ord ered By: Fina Adame on 03-25-2025 Nitrite Ql (U) Negative Negative [facility] Nucleated red blood cell per centageOrdered By: Fina Adame on 03-25-2025 Nucleated RBC/100 WBC (Bld) [Ratio] 0 % 0-5 [facility] Platelet countOrdered By: Rea Adame on 03-25-2025 Platelets (Bld) [#/Vol] 256 10*3/uL 150-450 [facility] Potassiumon 03-25-2025 Potassium [Moles/Vol] 4.1 mmol/L Normal 3.3-5.1 [facility] Comment on above: Performed By: #### L 501.5200, L501.5600 ####[facility] [address] [place], [address] Potassium measurement (mass/ volume)Ordered By: Fina Adame on 03-25-2025 Potassium (Unsp spec) [Mass/Vol] 4.1 mmol/L 3.3-5.1 [facility] Protein Test strip Ql (U)Ord ered By: Fina Adame on 03-25-2025 Protein Ql (U) 15 mg/dl High Negative [facility] RBC Auto (Bld) [#/Vol]Ordere d By: Fina Adame on 03-25-2025 RBC (Bld) [#/Vol] 5.11 10*6/uL 4.6-6.2 [facility] Serum creatinine measurement (mass/volume)Ordered By: Fina Adame on 03-25-2025 Creatinine [Mass/Vol] 0.61 mg/dL Low 0.70-1.20 [facility] Serum glucose measurement (m ass/volume)Ordered By: Fina Adame on 03-25-2025 Glucose [Mass/Vol] 67 mg/dL Low 70-99 [facility] Serum or plasma calcium silvia urement (mass/volume)Ordered By: Fina Adame on 03-25-2025 Calcium [Mass/Vol] 5.5 mg/dL Low 7.6-11.0 [facility] Comment on above: Critical Result(s) C alled at: by: Results read back by same. Serum or plasma urea nitroge n measurement (mass/volume)Ordered By: Fina Adame on 03-25-2025 Urea nitrogen [Mass/Vol] 11 mg/dL 4-19 [facility] Sodium levelOrdered By: Alex Adame on 03-25-2025 Sodium [Moles/Vol] 141 mmol/L 133-145 [facility] Squamous epithelial cells de tection in urine sediment by light microscopyOrdered By: Fina Adame on 03-25-2025 Epithelial cells.squamous LM Ql (Urine sed) 0 SEEN /hpf 0-5 [facility] Stool Clostridium difficile detectionOrdered By: Fina Adame on 03-25-2025 C. difficile Ql (Stl) [facility] Stool Lactoferrin/WBCon 03-08 WBCST Is the patient recei ving laxatives? N New/unexplained onset of 3 or more stools in past 24 hrs? Y Normal Reference Range = Negative Fecal WBC Lactoferrin Negative: No Fecal WBC Lactoferrin present Normal [facility] Comment on above: Performed By: #### M 100.0605, M100.6796, M100.6795, M100.637 ####[facility] [address] [place], [address] Stool lactoferrin detection by immunoassayOrdered By: Fina Adame on 03-25-2025 Lactoferrin IA Ql (Stl) [facility] Urinalysis, Completeon 03-25 BACTERIA 0 SEEN Normal None Seen [facility] Comment on above: Order Comment: ANUPAM DE SANTIAGOOR TO SPECIFY Performed By: #### L 400.0001 ####[facility] [address] [place], [address] EPI,SQUAMOUS 0 SEEN Normal 0-5 [facility] Comment on above: Order Comment: ANUPAM CTOR TO SPECIFY Performed By: #### L 400.0001 ####[facility] [address] [place], [address] Mucus Ql (Urine sed) 0 SEEN Normal [facility] Comment on above: Order Comment: ANUPAM CTOR TO SPECIFY Performed By: #### L 400.0001 ####[facility] [address] [place], [address] RBC 0 SEEN Normal 0-5 [facility] Comment on above: Order Comment: ANUPAM CTOR TO SPECIFY Performed By: #### L 400.0001 ####[facility] [address] [place], [address] WBC 0 SEEN Normal 0-5 [facility] Comment on above: Order Comment: COLLE CTOR TO SPECIFY Performed By: #### L 400.0001 ####[facility] [address] [place], [address] Urine clarityOrdered By: Jefferson Adame on 03-25-2025 Clarity (U) Clear Clear [facility] Urine color determinationOrd ered By: Fina Adame on 03-25-2025 Color (U) Yellow Yellow [facility] Urine glucose detectionOrder ed By: Fina Adame on 03-25-2025 Glucose Ql (U) Normal mg/dl Normal [facility] Urine leukocyte esterase det ection by dipstickOrdered By: Fina Adame on 03-25-2025 Leukocyte esterase Test strip Ql (U) Negative Negative [facility] Urine pHOrdered By: Susie Adame on 03-25-2025 pH (U) 6.0 [pH] 5.0 - 8.0 [facility] Urine sediment bacteria coun t by microscopy (number/high power field)Ordered By: Fina Adame on 03-25-2025 Bacteria LM.HPF (Urine sed) [#/Area] 0 /[HPF] None Seen [facility] Urine specific gravity measu rementOrdered By: Fina Adame on 03-25-2025 Specific gravity (U) [Rel density] 1.015 1.002-1.030 [facility] Urine urobilinogen measureme ntOrdered By: Fina Adame on 03-25-2025 Urobilinogen Ql (U) Normal mg/dl Normal [facility] White blood cell (WBC) count Ordered By: Fina Adame on 03-25-2025 WBC (Bld) [#/Vol] 4.4 10*3/uL 4.4-11.0 [facility] White blood cell countOrdere d By: Fina Adame on 03-25-2025 White blood cell count 0 SEEN /hpf 0-5 [facility] Anion gap in Serum or Plasma Ordered By: Malcom Madsen on 03-22-2025 Anion gap [Moles/Vol] 10 mmol/L 03-22 [facility] BUN/creatinine ratioOrdered By: Malcom Madsen on 03-22-2025 Urea nitrogen/Creatinine [Mass ratio] 16.4 mg/mg 08-27 [facility] Basic Metabolic Profile (BMP )on 03-22-2025 BUN/CRE 16.4 RATIO Normal 08-27 [facility] Comment on above: Performed By: #### L 500.2500 ####[facility] [address] [place], [address] Calcium [Mass/Vol] 9.1 mg/dL Normal 7.6-11.0 [facility] Comment on above: Performed By: #### L 500.2500 ####[facility] [address] [place], [address] Chloride [Moles/Vol] 96 mmol/L Low 98-108 [facility] Comment on above: Performed By: #### L 500.2500 ####[facility] [address] [place], [address] CO2 [Moles/Vol] 30.9 mmol/L Normal 21.0-32.0 [facility] Comment on above: Performed By: #### L 500.2500 ####[facility] [address] [place], [address] Creatinine [Mass/Vol] 1.07 mg/dL Normal 0.70-1.20 [facility] Comment on above: Performed By: #### L 500.2500 ####[facility] [address] [place], [address] ECRCL 104.28 ml/min Normal 50-250 [facility] Comment on above: Performed By: #### L 500.2500 ####[facility] [address] [place], [address] GAP 10 Normal 03-22 [facility] Comment on above: Performed By: #### L 500.2500 ####[facility] [address] [place], [address] GFR/1.73 sq M.predicted among non-blacks MDRD (S/P/Bld) [Vol rate/Area] 80 mL/min/{1.73_m2} Normal >60 [facility] Comment on above: Result Comment: mL/m in/1.73m2 CKD-EPI Creatinine Equation (2020) Performed By: #### L 500.2500 ####[facility] [address] [place], [address] Glucose [Mass/Vol] 138 mg/dL High 70-99 [facility] Comment on above: Performed By: #### L 500.2500 ####[facility] [address] [place], [address] Potassium [Moles/Vol] 3.7 mmol/L Normal 3.3-5.1 [facility] Comment on above: Result Comment: Hemo lysis present, Results??could be affected. ?? Performed By: #### L 500.2500 ####[facility] [address] [place], [address] Sodium [Moles/Vol] 137 mmol/L Normal 133-145 [facility] Comment on above: Performed By: #### L 500.2500 ####[facility] [address] [place], [address] Urea nitrogen [Mass/Vol] 18 mg/dL Normal 4-19 [facility] Comment on above: Performed By: #### L 500.2500 ####[facility] [address] [place], [address] CNPFlaca 03-22-2025 MELIAN Telephone (FAMPWS) -- JOSÉ MIGUEL YOUNG SR. ([id number]) 1965 M Date Time Provider Department 03/22/25 PIERCE WELLS During your visit today, we recorded the following information about you: Braeden Valdes RN 03/22/2025 4:56 PM Signed Patient is currently at [facility] hospital to be discharging possibly today. Spouse calls to request a referral to [facility]. She reports that last time patient was at [facility] they referred to [facility] for Afib and she has contacted them three times with no return call to schedule an appointment. Spouse requests call back at [phone] to schedule. Patient scheduled for Hospital Follow Up on 03/30/2025 from previous hospitalization. Please review and advise, KEVIN Rhoades Mark D, MD 03/22/2025 5:07 PM Signed Cardiology consult ordered MD Jesus Waters Kathryn, MA 03/23/2025 8:12 AM Signed Message left for pt or to call back. Please assist with setting up Cardio appt and complete Transition of Care/Pt Outreach encounter started for pt hospital follow up. YULISSA Jenkins Krystle, RN 03/23/2025 8:49 AM Signed Spouse calls back. Transferred to schedule cardiology referral. See patient outreach encounter as well. Braeden Valdes RN Allergies As of Date: 03/22/2025 Noted Allergy Reaction EFFEXOR (VENLAFAXINE) 06/17/2021 1 - Mental Status Change Comments: Suicidal thoughts GABAPENTIN 11/13/2017 7 - Swelling Comments: Leg swelling AMLODIPINE 06/08/2016 14 - Other: See Comments Comments: leg swelling LISINOPRIL 02/13/2016 3 - Cough Date Reviewed: 12/29/2024 Reviewed by: Lottie Shah OCCA - Fully Assessed Reason for Visit: Patient Update [1234] Primary Visit Diagnosis:Atrial fibrillation, unspecified type (HCC) [I48.91] Order(s):CONSULT TO CARDIOLOGY [9004] Order #: [id number]: 1 FUTURE Prescriptions as of 03/23/2025 - benzonatate (TESSALON PERLES) 100 mg capsule Take 1 capsule by mouth three times a day as needed for cough. - predniSONE (DELTASONE) 20 mg tablet Take 2 tablets by mouth once daily. - Atenolol-Chlorthalidone 100-25 mg per tablet Take 1 tablet by mouth once daily. - escitalopram oxalate (LEXAPRO) 10 mg tablet Take 1 tablet by mouth once daily. - minoxidil (LONITEN) 10 mg tablet Take 2 tablets by mouth once daily. - finasteride (PROSCAR) 5 mg tablet Take 1 tablet by mouth once daily. - tamsulosin (FLOMAX) 0.4 mg Take 1 capsule by mouth daily at bedtime. - omeprazole (PRILOSEC) 20 mg capsule Take 1 capsule by mouth daily before breakfast. 1/2 hr before meal. - NIFEdipine ER (PROCARDIA XL) 30 mg 24 hr tablet Take 1 tablet by mouth once daily. - ibuprofen (MOTRIN) 800 mg tablet TAKE ONE TABLET BY MOUTH TWICE DAILY WITH MEALS NEEDED - guanFACINE (TENEX) 1 mg tablet Take 1 tablet by mouth daily at bedtime. - losartan (COZAAR) 100 mg tablet Take 1 tablet by mouth once daily. - aspirin 325 mg tablet Take 325 mg by mouth once daily. Problem List As Of Date 03/22/2025 Noted Resolved Essential hypertension [I10] Tobacco use disorder [F17.200] 01/01/2011 06/29/2017 Cutaneous skin tags [L91.8] 06/01/2011 Sebaceous cyst [L72.3] 06/01/2011 Lipoma of unspecified site [D17.9] 06/22/2011 Diuretic-induced hypokalemia [E87.6, T50.2X5A] 02/22/2014 Sciatica [M54.30] 03/05/2014 Lumbago [M54.50] 03/05/2014 Digital mucous cyst [M67.449] 01/13/2016 Anxiety [F41.9] 07/18/2017 Morbid (severe) obesity due to excess calories *01/21/2018 Encounter Status:Closed by BRAEDEN VALDES on 03/23/25 Normal [facility] Carbon dioxide, total [Moles /volume] in Central venous bloodOrdered By: Malcom Madsen on 03-22-2025 CO2 [Moles/Vol] 30.9 mmol/L 21.0-32.0 [facility] Chloride assayOrdered By: Bill Madsen on 03-22-2025 Chloride [Moles/Vol] 96 mmol/L Low 98-108 [facility] Discharge Instructionon 03-08 Discharge Instruction [facility] Medical Records Department [address] [place] [address] Instructions for Home/Discharge Instructions 03/22/25 1450 MR#: [id number] Acct: [id number] Name: JOSÉ MIGUEL YOUNG . Rep #: [id number] : 1965 59 From: Zoë Khan MD PCP: Dr. Pierce Wells MD Status:ADM IN Discharge Instructions Diet Discharge Diet: Low fat / Low cholesterol DC O2, CPAP, BIPAP needs Home O2 Discharge instructions: No Dressing / Incision Discharge Activity: Return to Normal Activity Weight Bearing Status: Weight bearing as tolerated Dressing / Incision Call your doctor if you observe: Fever of 101 or Higher, Shortness of breath, Dizziness, Swelling in the ankles, Chest pain and Calf discomfort Follow Up Care Test Results: Test results from this visit will be discussed in further detail at your follow-up appointment, if applicable. Discharge Plan Admission Admit Date/Time: 03/19/25 14:17 Primary Reason for Your Visit: hypertension, HFpEF Attending Provider: Zoë Khan Primary Care Provider: Pierce Wells Consulting Providers: Thierno Campos; Malcom Madsen Instructions Patient Instructions: High Blood Pressure Risk Factors Discharge Orders/Prescriptions Prescriptions: New furosemide 40 mg tablet 40 mg PO BID Qty: 60 2RF potassium chloride 20 mEq tablet extended release 20 meq PO BID Qty: 60 2RF Continued guanfacine 1 mg tablet 1 tablet PO QPM 30 Days Qty: 30 Patient Comments: minoxidil 10 MG tablet 20 mg PO DAILY Patient Comments: TAKE 2 TABLETS BY MOUTH ONCE DAILY Rx Instructions: escitalopram oxalate 10 mg tablet 10 mg PO DAILY nifedipine 30 mg tablet extended release 24hr 30 mg PO DAILY tamsulosin 0.4 mg capsule 0.4 mg PO QHS omeprazole 20 mg capsule,delayed release(DR/EC) 20 mg PO DAILY losartan 100 mg tablet 100 mg PO DAILY finasteride 5 mg tablet 5 mg PO QPM atenolol 100 mg Tablet 100 mg PO DAILY 30 Days Qty: 30 2RF aspirin 81 mg Tablet,Chewable 81 mg PO DAILY@0800 30 Days Qty: 30 2RF Eliquis 5 mg Tablet 5 mg PO BID 30 Days Qty: 60 2RF Discontinued furosemide [Lasix] 20 mg tablet 20 mg PO .COMPLEX Rx Instructions: 20 mg orally every other day; Referrals / Follow Up: Pierce Wells MD [Primary Care Provider] - Within 1 Week Disposition Disposition (needs filled in before D/C Order can be placed): Home, Self Care 03/22/25 1451 Zoë Khan MD CC: Dr. Thierno Campos DO; Dr. Malcom Madsen DO; Dr. Pierce Wells MD Signed Normal [facility] Glomerular filtration rate ( GFR) estimation/1.73 sq m using serum, plasma, or whole bOrdered By: Malcom Madsen on 03-22-2025 GFR/1.73 sq M.predicted among non-blacks MDRD (S/P/Bld) [Vol rate/Area] 80 mL/min/{1.73_m2} >60 [facility] Comment on above: mL/min/1.73m2 CKD-EP I Creatinine Equation (2020) Potassium measurement (mass/ volume)Ordered By: Malcom Madsen on 03-22-2025 Potassium (Unsp spec) [Mass/Vol] 3.7 mmol/L 3.3-5.1 [facility] Comment on above: Hemolysis present, R esults could be affected. Serum creatinine measurement (mass/volume)Ordered By: Malcom Madsen on 03-22-2025 Creatinine [Mass/Vol] 1.07 mg/dL 0.70-1.20 [facility] Serum glucose measurement (m ass/volume)Ordered By: Malcom Madsen on 03-22-2025 Glucose [Mass/Vol] 138 mg/dL High 70-99 [facility] Serum or plasma calcium silvia urement (mass/volume)Ordered By: Malcom Madsen on 03-22-2025 Calcium [Mass/Vol] 9.1 mg/dL 7.6-11.0 [facility] Serum or plasma urea nitroge n measurement (mass/volume)Ordered By: Malcom Madsen on 03-22-2025 Urea nitrogen [Mass/Vol] 18 mg/dL 4-19 [facility] Sodium levelOrdered By: Malcom Madsen on 03-22-2025 Sodium [Moles/Vol] 137 mmol/L 133-145 [facility] Basic Metabolic Profile (BMP )on 03-21-2025 BUN/CRE 16.3 RATIO Normal 10-20 [facility] Comment on above: Performed By: #### L 500.2500 ####[facility] [address] [facility] [address] Calcium [Mass/Vol] 9.4 mg/dL Normal 7.6-11.0 [facility] Comment on above: Performed By: #### L 500.2500 ####[facility] [address] [place], [address] Chloride [Moles/Vol] 98 mmol/L Normal 98-108 [facility] Comment on above: Performed By: #### L 500.2500 ####[facility] [address] [place], [address] CO2 [Moles/Vol] 28.3 mmol/L Normal 21.0-32.0 [facility] Comment on above: Performed By: #### L 500.2500 ####[facility] [address] [place], [address] Creatinine [Mass/Vol] 0.94 mg/dL Normal 0.70-1.20 [facility] Comment on above: Performed By: #### L 500.2500 ####[facility] [address] [place], [address] ECRCL 119.66 ml/min Normal 50-250 [facility] Comment on above: Performed By: #### L 500.2500 ####[facility] [address] [place], [address] GAP 12 Normal 5-15 [facility] Comment on above: Performed By: #### L 500.2500 ####[facility] [address] [place], [address] GFR/1.73 sq M.predicted among non-blacks MDRD (S/P/Bld) [Vol rate/Area] 93 mL/min/{1.73_m2} Normal >60 [facility] Comment on above: Result Comment: mL/m in/1.73m2 CKD-EPI Creatinine Equation (2020) Performed By: #### L 500.2500 ####[facility] [address] [place], [address] Glucose [Mass/Vol] 129 mg/dL High 70-99 [facility] Comment on above: Performed By: #### L 500.2500 ####[facility] [address] [place], [address] Potassium [Moles/Vol] 3.4 mmol/L Normal 3.3-5.1 [facility] Comment on above: Performed By: #### L 500.2500 ####[facility] [address] [place], [address] Sodium [Moles/Vol] 138 mmol/L Normal 133-145 [facility] Comment on above: Performed By: #### L 500.2500 ####[facility] [address] [place], [address] Urea nitrogen [Mass/Vol] 15 mg/dL Normal 4-19 [facility] Comment on above: Performed By: #### L 500.2500 ####[facility] [address] [place], [address] Basic Metabolic Profile (BMP )on 03-20-2025 BUN/CRE 14.0 RATIO Normal 10-20 [facility] Comment on above: Performed By: #### L 500.2500 ####[facility] [address] [place], [address] Calcium [Mass/Vol] 9.5 mg/dL Normal 7.6-11.0 [facility] Comment on above: Performed By: #### L 500.2500 ####[facility] [address] [place], [address] Chloride [Moles/Vol] 98 mmol/L Normal 98-108 [facility] Comment on above: Performed By: #### L 500.2500 ####[facility] [address] [place], [address] CO2 [Moles/Vol] 26.1 mmol/L Normal 21.0-32.0 [facility] Comment on above: Performed By: #### L 500.2500 ####[facility] [address] [place], [address] Creatinine [Mass/Vol] 0.98 mg/dL Normal 0.70-1.20 [facility] Comment on above: Performed By: #### L 500.2500 ####[facility] [address] [place], [address] ECRCL 117.25 ml/min Normal 50-250 [facility] Comment on above: Performed By: #### L 500.2500 ####[facility] [address] [place], [address] GAP 14 Normal 5-15 [facility] Comment on above: Performed By: #### L 500.2500 ####[facility] [address] [place], [address] GFR/1.73 sq M.predicted among non-blacks MDRD (S/P/Bld) [Vol rate/Area] 89 mL/min/{1.73_m2} Normal >60 [facility] Comment on above: Result Comment: mL/m in/1.73m2 CKD-EPI Creatinine Equation (2020) Performed By: #### L 500.2500 ####[facility] [address] [place], [address] Glucose [Mass/Vol] 118 mg/dL High 70-99 [facility] Comment on above: Performed By: #### L 500.2500 ####[facility] [address] [place], [address] Potassium [Moles/Vol] 3.5 mmol/L Normal 3.3-5.1 [facility] Comment on above: Performed By: #### L 500.2500 ####[facility] [address] [place], [address] Sodium [Moles/Vol] 138 mmol/L Normal 133-145 [facility] Comment on above: Performed By: #### L 500.2500 ####[facility] [address] [place], [address] Urea nitrogen [Mass/Vol] 14 mg/dL Normal 4-19 [facility] Comment on above: Performed By: #### L 500.2500 ####[facility] [address] [place], [address] Absolute lymphocyte countOrd ered By: Thierno Estrada on 03-19-2025 Lymphocytes Auto (Unsp spec) [#/Vol] 1.25 10*3/uL 0.83-4.51 [facility] Absolute neutrophil countOrd ered By: Thierno Estrada on 03-19-2025 Neutrophils (Bld) [#/Vol] 4.2 10*3/uL 2.0-7.7 [facility] Automated lymphocyte count a s percentage of total leukocytesOrdered By: Thierno Estrada on 03-19-2025 Lymphocytes/100 WBC Auto (Unsp spec) 20.9 % 19-41 [facility] Basophil percentageOrdered B y: Thierno Estrada on 03-19-2025 Basophils/100 WBC (Bld) 0.5 % 0-1 [facility] Bilirubin, totalOrdered By: Thierno Estrada on 03-19-2025 Bilirubin [Mass/Vol] 1.74 mg/dL High 0.00-1.30 [facility] CBC W/Diff, Automatedon 03-08 Absolute Lymph 1.25 X10 3/uL Normal 0.83-4.51 [facility] Comment on above: Performed By: #### L 100.0100, L500.4050, L503.7505 ####[facility] [address] [place], [address] Absolute Neut 4.2 X10 3/uL Normal 2.0-7.7 [facility] Comment on above: Performed By: #### L 100.0100, L500.4050, L503.7505 ####[facility] [address] [place], [address] Basophils/100 WBC (Bld) 0.5 % Normal 0-1 [facility] Comment on above: Performed By: #### L 100.0100, L500.4050, L503.7505 ####[facility] [address] [place], [address] Eosinophils/100 WBC (Bld) 0.8 % Normal 0-5 [facility] Comment on above: Performed By: #### L 100.0100, L500.4050, L503.7505 ####[facility] [address] [place], [address] Erythrocyte distribution width (RBC) [Ratio] 14.0 % Normal 11.6-14.6 [facility] Comment on above: Performed By: #### L 100.0100, L500.4050, L503.7505 ####[facility] [address] [place], [address] Hematocrit (Bld) [Volume fraction] 38.3 % Low 40-54 [facility] Comment on above: Performed By: #### L 100.0100, L500.4050, L503.7505 ####[facility] [address] [place], [address] Hemoglobin (Bld) [Mass/Vol] 12.3 g/dL Low 13.0-16.5 [facility] Comment on above: Performed By: #### L 100.0100, L500.4050, L503.7505 ####[facility] [address] [place], [address] IG% 0.300 Normal 0.0-0.9 [facility] Comment on above: Result Comment: IG% - Immature Granulocytes (promyelocytes, myelocytes and metamyelocytes) > 1% indicates that a LEFT SHIFT is Present. Performed By: #### L 100.0100, L500.4050, L503.7505 ####[facility] [address] [place], [address] Lymphocytes/100 WBC (Bld) 20.9 % Normal 19-41 [facility] Comment on above: Performed By: #### L 100.0100, L500.4050, L503.7505 ####[facility] [address] [place], [address] MCH (RBC) [Entitic mass] 28.4 pg Normal 27.0-32.0 [facility] Comment on above: Performed By: #### L 100.0100, L500.4050, L503.7505 ####[facility] [address] [place], [address] MCHC (RBC) [Mass/Vol] 32.1 g/dL Normal 32-36 [facility] Comment on above: Performed By: #### L 100.0100, L500.4050, L503.7505 ####[facility] [address] [place], [address] MCV (RBC) [Entitic vol] 88.5 fL Normal 80-94 [facility] Comment on above: Performed By: #### L 100.0100, L500.4050, L503.7505 ####[facility] [address] [place], [address] Monocytes/100 WBC (Bld) 6.7 % Normal 0-10 [facility] Comment on above: Performed By: #### L 100.0100, L500.4050, L503.7505 ####[facility] [address] [place], [address] Neutrophils/100 WBC (Bld) 70.8 % High 47-70 [facility] Comment on above: Performed By: #### L 100.0100, L500.4050, L503.7505 ####[facility] [address] [place], [address] Nucleated RBC (Bld) [#/Vol] 0 10*3/uL Normal 0-5 [facility] Comment on above: Performed By: #### L 100.0100, L500.4050, L503.7505 ####[facility] [address] [place], [address] Platelet mean volume (Bld) [Entitic vol] 10.3 fL Normal 6.2-12.0 [facility] Comment on above: Performed By: #### L 100.0100, L500.4050, L503.7505 ####[facility] [address] [place], [address] Platelets (Bld) [#/Vol] 220 10*3/uL Normal 150-450 [facility] Comment on above: Performed By: #### L 100.0100, L500.4050, L503.7505 ####[facility] [address] [place], [address] RBC (Bld) [#/Vol] 4.33 10*6/uL Low 4.6-6.2 [facility] Comment on above: Performed By: #### L 100.0100, L500.4050, L503.7505 ####[facility] [address] [place], [address] RDW SD 45.2 fl High 35.1-43.9 [facility] Comment on above: Performed By: #### L 100.0100, L500.4050, L503.7505 ####[facility] [address] [place], [address] WBC (Bld) [#/Vol] 6.0 10*3/uL Normal 4.4-11.0 [facility] Comment on above: Performed By: #### L 100.0100, L500.4050, L503.7505 ####[facility] [address] [place], [address] CO2 (BldV) [Moles/Vol]Ordere d By: Malcom Madsen on 03-19-2025 CO2 [Moles/Vol] 36 mmol/L High 23-33 [facility] Chest 1 View (Portable)on Chest 1 View (Portable) [facility] Imaging Services [address] [place] [address] Chest 1 View (Portable) MR#: [id number] Acct: [id number] Name: JOSÉ MIGUEL YOUNG Sr. Rep #: [id number] : 1965 M 59 From: Luis Eduardo Goel MD PCP: Dr. Pierce Wells MD Status: ADM CHAGO Study: Chest 1 View (Portable) Date of Exam: 03/19/25 Exam# [id number] Ordering Dr: Thierno Campos DO PROCEDURE: CHEST 1 VIEW (PORTABLE) 03/19/2025 REASON FOR EXAM: AE CHF TECHNIQUE: Frontal view of the chest. 2 images to include the entire chest COMPARISON: 03/18/2025 FINDINGS: No significant interval change in appearance of mild patchy perihilar lower zone predominant ill- defined opacity which may represent mild edema. Cardiac silhouette is again enlarged for technique. 2 cm sclerotic focus at the proximal right humerus, correlate with history. RAD/Chest 1 View (Portable) IMPRESSION: No significant interval change in appearance of mild patchy perihilar lower zone predominant ill- defined opacity which may represent mild edema. Cardiac silhouette is again enlarged for technique. Reading Location: [id number] CC: Dr. Thierno Campos DO; Dr. Pierce Wells MD Prn Physical Therapist: Signed Normal [facility] Comprehensive Metabolic Prof ilon 03-19-2025 Albumin [Mass/Vol] 4.2 g/dL Normal 3.5-5.0 [facility] Comment on above: Performed By: #### L 100.0100, L500.4050, L503.7505 ####[facility] [address] [place], [address] Albumin/Globulin [Mass ratio] 1.4 {ratio} Normal 0.9-2.4 [facility] Comment on above: Performed By: #### L 100.0100, L500.4050, L503.7505 ####[facility] [address] [place], [address] ALK PHOS 54 U/L Normal 40-129 [facility] Comment on above: Performed By: #### L 100.0100, L500.4050, L503.7505 ####[facility] [address] [place], [address] ALT [Catalytic activity/Vol] 26 U/L Normal <=46 [facility] Comment on above: Performed By: #### L 100.0100, L500.4050, L503.7505 ####[facility] [address] [place], [address] AST [Catalytic activity/Vol] 43 U/L High <=37 [facility] Comment on above: Performed By: #### L 100.0100, L500.4050, L503.7505 ####[facility] [address] [place], [address] Bilirubin [Mass/Vol] 1.74 mg/dL High 0.00-1.30 [facility] Comment on above: Performed By: #### L 100.0100, L500.4050, L503.7505 ####[facility] [address] [place], [address] BUN/CRE 13.5 RATIO Normal 10-20 [facility] Comment on above: Performed By: #### L 100.0100, L500.4050, L503.7505 ####[facility] [address] [place], [address] Calcium [Mass/Vol] 9.4 mg/dL Normal 7.6-11.0 [facility] Comment on above: Performed By: #### L 100.0100, L500.4050, L503.7505 ####[facility] [address] [place], [address] Chloride [Moles/Vol] 101 mmol/L Normal 98-108 [facility] Comment on above: Performed By: #### L 100.0100, L500.4050, L503.7505 ####[facility] [address] [place], [address] CO2 [Moles/Vol] 23.8 mmol/L Normal 21.0-32.0 [facility] Comment on above: Performed By: #### L 100.0100, L500.4050, L503.7505 ####[facility] [address] [place], [address] Creatinine [Mass/Vol] 1.14 mg/dL Normal 0.70-1.20 [facility] Comment on above: Performed By: #### L 100.0100, L500.4050, L503.7505 ####[facility] [address] [place], [address] ECRCL 100.80 ml/min Normal 50-250 [facility] Comment on above: Performed By: #### L 100.0100, L500.4050, L503.7505 ####[facility] [address] [place], [address] GAP 13 Normal 5-15 [facility] Comment on above: Performed By: #### L 100.0100, L500.4050, L503.7505 ####[facility] [address] [place], [address] GFR/1.73 sq M.predicted among non-blacks MDRD (S/P/Bld) [Vol rate/Area] 74 mL/min/{1.73_m2} Normal >60 [facility] Comment on above: Result Comment: mL/m in/1.73m2 CKD-EPI Creatinine Equation (2020) Performed By: #### L 100.0100, L500.4050, L503.7505 ####[facility] [address] [place], [address] Globulin (S) [Mass/Vol] 3.1 g/dL Normal 2.2-4.2 [facility] Comment on above: Performed By: #### L 100.0100, L500.4050, L503.7505 ####[facility] [address] [place], [address] Glucose [Mass/Vol] 126 mg/dL High 70-99 [facility] Comment on above: Performed By: #### L 100.0100, L500.4050, L503.7505 ####[facility] [address] [place], [address] Potassium [Moles/Vol] 3.7 mmol/L Normal 3.3-5.1 [facility] Comment on above: Performed By: #### L 100.0100, L500.4050, L503.7505 ####[facility] [address] [place], [address] Sodium [Moles/Vol] 138 mmol/L Normal 133-145 [facility] Comment on above: Performed By: #### L 100.0100, L500.4050, L503.7505 ####[facility] [address] [place], [address] T PROT 7.4 g/dL Normal 5.9-8.4 [facility] Comment on above: Performed By: #### L 100.0100, L500.4050, L503.7505 ####[facility] [address] [place], [address] Urea nitrogen [Mass/Vol] 15 mg/dL Normal 4-19 [facility] Comment on above: Performed By: #### L 100.0100, L500.4050, L503.7505 ####[facility] [address] [place], [address] Electrocardiogram reportOrde red By: Jesse Sosa on 03-19-2025 EKG study [facility] Services [address] [place] [address] 12 Lead EKG 03/18/251944 MR#: [id number] Acct: [id number] Name: JOSÉ MIGUEL YOUNG Sr. Rep #: [id number] : 1965 59 From: Jesse cain MD Attending Dr: Dr. Malcom Madsen, DO Status: ADM CHAGO Ordering Dr: Lyle Moise MD Date: Location: U Sex: M C Admitted: 03/18/25 Test Reason : SOB Blood Pressure : */* mmHG Vent. Rate : 88 BPM Atrial Rate : * BPM P-R Int : * ms QRS Dur : 88 ms QT Int : 374 ms P-R-T Axes : * 5 77 degrees QTcB Int : 452 ms Atrial fibrillation Low voltage QRS Abnormal ECG Confirmed by Jesse Sosa ([id number]), online content editor ANGELA RIZO ([id number]) on :25:10 AM Referred By: DC Confirmed By: Jesse Sosa 03/19/25 0925 Date _ Jesse Sosa MD CC: Dr. Lyle Moise MD; Dr. Malcom Madsen DO; Dr. Pierce Wells MD ~ Signed [facility] Other Phone: Eosinophil percentageOrdered By: Thierno Estrada on 03-19-2025 Eosinophils/100 WBC (Bld) 0.8 % 0-5 [facility] Erythrocyte distribution wid th ratioOrdered By: Thierno Estrada on 03-19-2025 Erythrocyte distribution width (RBC) [Ratio] 14.0 % 11.6-14.6 [facility] Erythrocyte distribution wid th standard deviationOrdered By: Thierno Estrada on 03-19-2025 Erythrocyte distribution width (RBC) [Ratio] 45.2 fl High 35.1-43.9 [facility] Hematocrit Auto (Bld) [Volum e fraction]Ordered By: Thierno Estrada on 03-19-2025 Hematocrit (Bld) [Volume fraction] 38.3 % Low 40-54 [facility] Hemoglobin measurementOrdere d By: Thierno Estrada on 03-19-2025 Hemoglobin (Bld) [Mass/Vol] 12.3 g/dL Low 13.0-16.5 [facility] Immature granulocytes/100 WB C Auto (Bld)Ordered By: Thierno Estrada on 03-19-2025 Immature granulocytes/100 WBC (Bld) 0.300 % 0.0-0.9 [facility] Comment on above: IG% - Immature Granu locytes (promyelocytes, myelocytes and metamyelocytes) > 1% indicates that a LEFT SHIFT is Present. L499.0043on 03-19-2025 Trop T High Sen 23 ng/L High <=22 [facility] Comment on above: Performed By: #### L 499.0043 ####[facility] [address] [place], [address] L503.7505on 03-19-2025 Natriuretic peptide B (Bld) [Mass/Vol] 1747 pg/mL High <=900 [facility] Comment on above: Result Comment: Hear t Failure Unlikely: < 300 pg/mL Heart Failure Likely < 50 Years: > 450 pg/mL 50-75 Years: > 900 pg/mL >75 Years: > 1800 pg/mL Performed By: #### L 100.0100, L500.4050, L503.7505 ####[facility] [address] [place], [address] Laboratory - Chemistry and C hemistry - challengeOrdered By: Thierno Estrada on 03-19-2025 AST [Catalytic activity/Vol] 43 U/L High <38 [facility] MCV (mean corpuscular volume ) determinationOrdered By: Thierno Estrada on 03-19-2025 MCV (RBC) [Entitic vol] 88.5 fL 80-94 [facility] Mean corpuscular hemoglobin (MCH) determinationOrdered By: Thierno Estrada on 03-19-2025 MCH (RBC) [Entitic mass] 28.4 pg 27.0-32.0 [facility] Mean corpuscular hemoglobin concentration (MCHC) determinationOrdered By: Thierno Estrada on 03-19-2025 MCHC (RBC) [Mass/Vol] 32.1 g/dL 32-36 [facility] Mean platelet volume determi nationOrdered By: Thierno Estrada on 03-19-2025 Platelet mean volume (Bld) [Entitic vol] 10.3 fL 6.2-12.0 [facility] Monocyte percentageOrdered B y: Thierno Estrada on 03-19-2025 Monocytes/100 WBC (Bld) 6.7 % 0-10 [facility] Natriuretic peptide.B prohor nicola N-Terminal [Mass/volume] in Serum or PlasmaOrdered By: Thierno Estrada on 03-19-2025 Natriuretic peptide.B prohormone N-Terminal [Mass/Vol] 1747 pg/mL High <900 [facility] Comment on above: Heart Failure Unlike ly: < 300 pg/mLHeart Failure Likely< 50 Years: > 450 pg/mL50-75 Years: > 900 pg/mL>75 Years: > 1800 pg/mL Neutrophil percentageOrdered By: Thierno Estrada on 03-19-2025 Neutrophils/100 WBC (Bld) 70.8 % High 47-70 [facility] No Panel InformationOrdered By: Malcom Madsen on 03-19-2025 Blood Gas Sample Site Not entered [facility] Blood Gas Specimen Type CANDICE [facility] Oxygen Delivery Device Not entered [facility] Nucleated red blood cell per centageOrdered By: Thierno Estrada on 03-19-2025 Nucleated RBC/100 WBC (Bld) [Ratio] 0 % 0-5 [facility] Phosphoruson 03-19-2025 Phosphate [Mass/Vol] 3.2 mg/dL Normal 2.7-4.5 [facility] Comment on above: Performed By: #### L 501.2300 ####[facility] [address] [place], [place], [address] Platelet countOrdered By: Arcadio Estrada on 03-19-2025 Platelets (Bld) [#/Vol] 220 10*3/uL 150-450 [facility] RBC Auto (Bld) [#/Vol]Ordere d By: Thierno Estrada on 03-19-2025 RBC (Bld) [#/Vol] 4.33 10*6/uL Low 4.6-6.2 [facility] Serum globulin measurementOr dered By: Thierno Estrada on 03-19-2025 Globulin (S) [Mass/Vol] 3.1 g/dL 2.2-4.2 [facility] Serum or plasma alanine chu otransferase (ALT) measurementOrdered By: Thierno Estrada on 03-19-2025 ALT [Catalytic activity/Vol] 26 U/L <47 [facility] Serum or plasma albumin silvia urement (mass/volume)Ordered By: Thierno Estrada on 03-19-2025 Albumin [Mass/Vol] 4.2 g/dL 3.5-5.0 [facility] Serum or plasma albumin/glob ulin mass ratioOrdered By: Thierno Estrada on 03-19-2025 Albumin/Globulin [Mass ratio] 1.4 {ratio} 0.9-2.4 [facility] Serum or plasma alkaline karon sphatase measurementOrdered By: Thierno Estrada on 03-19-2025 ALP [Catalytic activity/Vol] 54 U/L 40-129 [facility] Total proteinOrdered By: Joey Estrada on 03-19-2025 Protein [Mass/Vol] 7.4 g/dL 5.9-8.4 [facility] Venous Blood Gason Blood Gas Type CANDICE [facility] Comment on above: Performed By: #### L 9000.0810 ####[facility] [address] [place], [address] CO2 [Moles/Vol] 36 mmol/L High 23-33 [facility] Comment on above: Performed By: #### L 9000.0810 ####[facility] [address] [place], [address] HCO3 (Bld) [Moles/Vol] 35 mmol/L High 22-26 [facility] Comment on above: Performed By: #### L 9000.0810 ####[facility] [address] [place], [address] O2 Delivery Dev Not entered [facility] Comment on above: Performed By: #### L 9000.0810 ####[facility] [address] [place], [address] [facility] Comment on above: Performed By: #### L 9000.0810 ####[facility] [address] [place], [address] VBG BE 9 mmol/L High -1.0-3.5 [facility] Comment on above: Performed By: #### L 9000.0810 ####[facility] [address] [place], [address] VBG pCO2 62.4 mmHg High 41-51 [facility] Comment on above: Performed By: #### L 9000.0810 ####[facility] [address] [place], [place], [address] VBG pH 7.35 Normal 7.32-7.42 [facility] Comment on above: Performed By: #### L 9000.0810 ####[facility] [address] [place], [place], [address] VBG PO2 105 mmHg High 25-40 [facility] Comment on above: Performed By: #### L 9000.0810 ####[facility] [address] [place], [place], [id number] VBG SO2 98 High 50-70 [facility] Comment on above: Performed By: #### L 9000.0810 ####[facility] [address] [place], [place], [id number] Venous blood base excess vicki surementOrdered By: Malcom Madsen on 03-19-2025 Base excess Calc (BldV) [Moles/Vol] 9 mmol/L High -1.0-3.5 [facility] Venous blood bicarbonate vicki surementOrdered By: Malcom Madsen on 03-19-2025 HCO3 (Bld) [Moles/Vol] 35 mmol/L High 22-26 [facility] Venous blood oxygen saturati on measurementOrdered By: Malcom Madsen on 03-19-2025 Oxygen saturation in Blood 98 % High 50-70 [facility] Venous blood pH measurementO rdered By: Malcom Madsen on 03-19-2025 pH (BldV) 7.35 [pH] 7.32-7.42 [facility] Venous blood partial pressur e of carbon dioxide measurementOrdered By: Malcom Madsen on 03-19-2025 CO2 (BldV) [Partial pressure] 62.4 mm[Hg] High 41-51 [facility] Venous blood partial pressur e of oxygen measurementOrdered By: Malcom Madsen on 03-19-2025 Oxygen (BldV) [Partial pressure] 105 mm[Hg] High 25-40 [facility] White blood cell (WBC) count Ordered By: Thierno Estrada on 03-19-2025 WBC (Bld) [#/Vol] 6.0 10*3/uL 4.4-11.0 [facility] 12 Lead EKGon 03-18-2025 12 Lead EKG [facility] Cardiovascular Services [address] [place] [address] 12 Lead EKG 03/18/251944 MR#: [id number] Acct: [id number] Name: JOSÉ MIGUEL YOUNG Sr. Rep #: [id number] : 1965 59 From: Jesse Sosa MD Attending Dr: Dr. Malcom Madsen DO Status: ADM CHAGO Ordering Dr: Lyle Moise MD Date: 03/18/25 [facility] Sex[facility] M C Admitted: 03/18/25 Test Reason : SOB Blood Pressure : */* mmHG Vent. Rate : 88 BPM Atrial Rate : * BPM P-R Int : * ms QRS Dur : 88 ms QT Int : 374 ms P-R-T Axes : * 5 77 degrees QTcB Int : 452 ms Atrial fibrillation Low voltage QRS Abnormal ECG Confirmed by Jesse Sosa ([id number]), online content editor ANGELA RIZO ([id number]) on 03/19/2025 9:25:10 AM Referred By: DC Confirmed By: Jesse Sosa 03/19/25 0925 Date Jesse oSsa MD CC: Dr. Lyle Moise MD; Dr. Malcom Madsen DO; Dr. Pierce Wells MD Signed Normal [facility] Absolute lymphocyte countOrd ered By: Lyle Moise on 03-18-2025 Lymphocytes Auto (Unsp spec) [#/Vol] 1.33 10*3/uL 0.83-4.51 [facility] Absolute neutrophil countOrd ered By: Lyle Moise on 03-18-2025 Neutrophils (Bld) [#/Vol] 4.5 10*3/uL 2.0-7.7 [facility] Anion gap in Serum or Plasma Ordered By: Lyle Moise on 03-18-2025 Anion gap [Moles/Vol] 11 mmol/L 5-15 [facility] Automated lymphocyte count a s percentage of total leukocytesOrdered By: Lyle Moise on 03-18-2025 Lymphocytes/100 WBC Auto (Unsp spec) 20.9 % 19-41 [facility] BUN/creatinine ratioOrdered By: Lyle Miose on 03-18-2025 Urea nitrogen/Creatinine [Mass ratio] 9.6 mg/mg Low 10-20 [facility] Basophil percentageOrdered B y: Lyle Moise on 03-18-2025 Basophils/100 WBC (Bld) 0.6 % 0- [facility] Bilirubin Test strip Ql (U)O rdered By: Thierno Estrada on 03-18-2025 Bilirubin Ql (U) Negative Negative [facility] Bilirubin, totalOrdered By: Lyle Moise on 03-18-2025 Bilirubin [Mass/Vol] 1.63 mg/dL High 0.00-1.30 [facility] CBC W/Diff, Automatedon 03-08 Absolute Lymph 1.33 X10 3/uL Normal 0.83-4.51 [facility] Comment on above: Performed By: #### L 500.4050, L100.0100, L501.4021, L503.7505 ####[facility] [address] [place], [address] Absolute Neut 4.5 X10 3/uL Normal 2.0-7.7 [facility] Comment on above: Performed By: #### L 500.4050, L100.0100, L501.4021, L503.7505 ####[facility] [address] [place], [address] Basophils/100 WBC (Bld) 0.6 % Normal 0-1 [facility] Comment on above: Performed By: #### L 500.4050, L100.0100, L501.4021, L503.7505 ####[facility] [address] [place], [address] Eosinophils/100 WBC (Bld) 1.3 % Normal 0-5 [facility] Comment on above: Performed By: #### L 500.4050, L100.0100, L501.4021, L503.7505 ####[facility] [address] [place], [address] Erythrocyte distribution width (RBC) [Ratio] 14.2 % Normal 11.6-14.6 [facility] Comment on above: Performed By: #### L 500.4050, L100.0100, L501.4021, L503.7505 ####[facility] [address] [place], [address] Hematocrit (Bld) [Volume fraction] 41.6 % Normal 40-54 [facility] Comment on above: Performed By: #### L 500.4050, L100.0100, L501.4021, L503.7505 ####[facility] [address] [place], [address] Hemoglobin (Bld) [Mass/Vol] 13.4 g/dL Normal 13.0-16.5 [facility] Comment on above: Performed By: #### L 500.4050, L100.0100, L501.4021, L503.7505 ####[facility] [address] [place], [address] IG% 0.200 Normal 0.0-0.9 [facility] Comment on above: Result Comment: IG% - Immature Granulocytes (promyelocytes, myelocytes and metamyelocytes) > 1% indicates that a LEFT SHIFT is Present. Performed By: #### L 500.4050, L100.0100, L501.4021, L503.7505 ####[facility] [address] [place], [address] Lymphocytes/100 WBC (Bld) 20.9 % Normal 19-41 [facility] Comment on above: Performed By: #### L 500.4050, L100.0100, L501.4021, L503.7505 ####[facility] [address] [place], [address] MCH (RBC) [Entitic mass] 29.2 pg Normal 27.0-32.0 [facility] Comment on above: Performed By: #### L 500.4050, L100.0100, L501.4021, L503.7505 ####[facility] [address] [place], [address] MCHC (RBC) [Mass/Vol] 32.2 g/dL Normal 32-36 [facility] Comment on above: Performed By: #### L 500.4050, L100.0100, L501.4021, L503.7505 ####[facility] [address] [place], [address] MCV (RBC) [Entitic vol] 90.6 fL Normal 80-94 [facility] Comment on above: Performed By: #### L 500.4050, L100.0100, L501.4021, L503.7505 ####[facility] [address] [place], [address] Monocytes/100 WBC (Bld) 6.1 % Normal 0-10 [facility] Comment on above: Performed By: #### L 500.4050, L100.0100, L501.4021, L503.7505 ####[facility] [address] [place], [address] Neutrophils/100 WBC (Bld) 70.9 % High 47-70 [facility] Comment on above: Performed By: #### L 500.4050, L100.0100, L501.4021, L503.7505 ####[facility] [address] [place], [address] Nucleated RBC (Bld) [#/Vol] 0 10*3/uL Normal 0-5 [facility] Comment on above: Performed By: #### L 500.4050, L100.0100, L501.4021, L503.7505 ####[facility] [address] [place], [address] Platelet mean volume (Bld) [Entitic vol] 10.7 fL Normal 6.2-12.0 [facility] Comment on above: Performed By: #### L 500.4050, L100.0100, L501.4021, L503.7505 ####[facility] [address] [place], [address] Platelets (Bld) [#/Vol] 246 10*3/uL Normal 150-450 [facility] Comment on above: Performed By: #### L 500.4050, L100.0100, L501.4021, L503.7505 ####[facility] [address] [place], [address] RBC (Bld) [#/Vol] 4.59 10*6/uL Low 4.6-6.2 [facility] Comment on above: Performed By: #### L 500.4050, L100.0100, L501.4021, L503.7505 ####[facility] [address] [place], [address] RDW SD 46.6 fl High 35.1-43.9 [facility] Comment on above: Performed By: #### L 500.4050, L100.0100, L501.4021, L503.7505 ####[facility] [address] [place], [address] WBC (Bld) [#/Vol] 6.4 10*3/uL Normal 4.4-11.0 [facility] Comment on above: Performed By: #### L 500.4050, L100.0100, L501.4021, L503.7505 ####[facility] [address] [place], [address] CO2 (BldV) [Moles/Vol]Ordere d By: Thierno Estrada on 03-18-2025 CO2 [Moles/Vol] 33 mmol/L [facility] CTA Chest W/WO Contraston CTA Chest W/WO Contrast [facility] Imaging Services [address] [place] [address] CTA Chest W/WO Contrast MR#: [id number] Acct: [id number] Name: JOSÉ MIGUEL YOUNG Sr. Rep #: [id number] : 1965 M 59 From: Uriel lund MD PCP: Dr. Pierce Wells MD Status: ADM CHAGO Study: CTA Chest W/WO Contrast Date of Exam: 03/18/25 Exam# [id number] Ordering Dr: Thierno Campos DO PROCEDURE: CTA CHEST W/WO CONTRAST 03/18/2025 REASON FOR EXAM: SOB WITH ELEVATED D-DIMER. EVAL FOR PE. TECHNIQUE: CTA axial imaging of the chest with intravenous contrast. Multiplanar and multisequence images were obtained. PATIENT PREPARATION: Per protocol CONTRAST: Omnipaque 350 VOLUME: 100 mL Not Provided Gauge IV One or more dose reduction techniques were used (e.g., Automated exposure control, adjustment of the mA and/or kV according to patient size, use of iterative reconstruction technique). COMPARISON: CT chest 02/26/2020 FINDINGS: Hardware: None Lymph nodes: Multiple prominent-mildly enlarged lymph nodes. For example 15 mm left para-aortic node (series 2 image 169); 20 mm right hilar node (image 147) and 12 mm left hilar node (image 145). Heart: Mild cardiomegaly. Stable small pericardial effusion. Mild coronary artery calcifications. Thoracic Aorta: No thoracic aortic aneurysm or dissection. Pulmonary Vessels: Main pulmonary artery is enlarged, and measures 3.8 cm, likely secondary to pulmonary arterial hypertension. No evidence of acute pulmonary emboli through the major subsegmental branches. Most Proximal Level of Embolus (if embolus present): Absent Lungs and Airways: Central airways are patent without endobronchial lesions. Diffuse mosaic attenuation, throughout both mathew thoraces. Mild interlobular septal thickening. Increased small right and trace left pleural effusions with atelectasis. Additional scattered bilateral ground-glass opacities. Constellation of findings, concerning for pulmonary edema. No pneumothorax. Upper Abdomen: Right adrenal fat attenuation mass which measures 5.7 x 5.9 cm, compatible with an adrenal myelolipoma. Bones: Degenerative changes of the thoracic spine. CT/CTA Chest W/WO Contrast IMPRESSION: 1. Bilateral pleural effusions, mosaic attenuation, interlobular septal thickening and ground-glass opacities, concerning for pulmonary edema. 2. Mild cardiomegaly and stable small pericardial effusion. 3. Multiple prominent-mildly enlarged unchanged lymph nodes, which are likely reactive. 4. Findings suggestive of pulmonary hypertension. 5. Right adrenal myelolipoma. Reading Location: [facility] CC: Dr. Thierno Campos DO; Dr. Pierce Wells MD Prn Physical Therapist: Signed Normal [facility] Carbon dioxide, total [Moles /volume] in Central venous bloodOrdered By: Lyle Moise on 03-18-2025 CO2 [Moles/Vol] 23.7 mmol/L 21.0-32.0 [facility] Chest 1 View (Portable)on Chest 1 View (Portable) [facility] Imaging Services [address] [place], [place] [address] Chest 1 View (Portable) MR#: [id number] Acct: [id number] Name: JOSÉ MIGUEL YOUNG . Rep #: [id number] : 1965 M 59 From: Uriel lund MD PCP: Dr. Pierce Wells MD Status: REG ER Study: Chest 1 View (Portable) Date of Exam: 03/18/25 Exam# [id number] Ordering Dr: Lyle Moise MD PROCEDURE: CHEST 1 VIEW (PORTABLE) 03/18/2025 REASON FOR EXAM: DYSPNEA, EDEMA TECHNIQUE: Frontal view of the chest. COMPARISON: CT chest 03/02/2025 FINDINGS: Hardware: None Heart: Heart size is moderately enlarged. Lungs: Stable bilateral perihilar prominence. Linear opacity right lower lobe, likely secondary to subsegmental atelectasis. Bibasilar atelectasis. No pneumothorax. No pleural effusion. Bones: The bones are unremarkable. Other: RAD/Chest 1 View (Portable) IMPRESSION: Findings suggestive of vascular congestion. [facility] CC: Dr. Lyle Moise MD; Dr. Pierce Wells MD Prn Physical Therapist: Signed Normal [facility] Chloride assayOrdered By: Arcadio Moise on 03-18-2025 Chloride [Moles/Vol] 104 mmol/L 98-108 [facility] Comprehensive Metabolic Prof ilon 03-18-2025 Albumin [Mass/Vol] 4.2 g/dL Normal 3.5-5.0 [facility] Comment on above: Performed By: #### L 500.4050, L100.0100, L501.4021, L503.7505 ####[facility] [address] [place], [address] Albumin/Globulin [Mass ratio] 1.3 {ratio} Normal 0.9-2.4 [facility] Comment on above: Performed By: #### L 500.4050, L100.0100, L501.4021, L503.7505 ####[facility] [address] [place], [address] ALK PHOS 57 U/L Normal 40-129 [facility] Comment on above: Performed By: #### L 500.4050, L100.0100, L501.4021, L503.7505 ####[facility] [address] [place], [address] ALT [Catalytic activity/Vol] 30 U/L Normal <=46 [facility] Comment on above: Performed By: #### L 500.4050, L100.0100, L501.4021, L503.7505 ####[facility] [address] [place], [address] AST [Catalytic activity/Vol] 52 U/L High <=37 [facility] Comment on above: Result Comment: Hemo lysis present, Results??could be affected. ?? Performed By: #### L 500.4050, L100.0100, L501.4021, L503.7505 ####[facility] [address] [place], [address] Bilirubin [Mass/Vol] 1.63 mg/dL High 0.00-1.30 [facility] Comment on above: Performed By: #### L 500.4050, L100.0100, L501.4021, L503.7505 ####[facility] [address] [place], [address] BUN/CRE 9.6 RATIO Low 10-20 [facility] Comment on above: Performed By: #### L 500.4050, L100.0100, L501.4021, L503.7505 ####[facility] [address] [place], [address] Calcium [Mass/Vol] 9.5 mg/dL Normal 7.6-11.0 [facility] Comment on above: Performed By: #### L 500.4050, L100.0100, L501.4021, L503.7505 ####[facility] [address] [place], [address] Chloride [Moles/Vol] 104 mmol/L Normal 98-108 [facility] Comment on above: Performed By: #### L 500.4050, L100.0100, L501.4021, L503.7505 ####[facility] [address] [place], [address] CO2 [Moles/Vol] 23.7 mmol/L Normal 21.0-32.0 [facility] Comment on above: Performed By: #### L 500.4050, L100.0100, L501.4021, L503.7505 ####[facility] [address] [place], [address] Creatinine [Mass/Vol] 1.33 mg/dL High 0.70-1.20 [facility] Comment on above: Performed By: #### L 500.4050, L100.0100, L501.4021, L503.7505 ####[facility] [address] [place], [address] ECRCL 88.10 ml/min Normal 50-250 [facility] Comment on above: Performed By: #### L 500.4050, L100.0100, L501.4021, L503.7505 ####[facility] [address] [place], [address] GAP 11 Normal 5-15 [facility] Comment on above: Performed By: #### L 500.4050, L100.0100, L501.4021, L503.7505 ####[facility] [address] [place], [address] GFR/1.73 sq M.predicted among non-blacks MDRD (S/P/Bld) [Vol rate/Area] 62 mL/min/{1.73_m2} Normal >60 [facility] Comment on above: Result Comment: mL/m in/1.73m2 CKD-EPI Creatinine Equation (2020) Performed By: #### L 500.4050, L100.0100, L501.4021, L503.7505 ####[facility] [address] [place], [address] Globulin (S) [Mass/Vol] 3.4 g/dL Normal 2.2-4.2 [facility] Comment on above: Performed By: #### L 500.4050, L100.0100, L501.4021, L503.7505 ####[facility] [address] [place], [address] Glucose [Mass/Vol] 111 mg/dL High 70-99 [facility] Comment on above: Performed By: #### L 500.4050, L100.0100, L501.4021, L503.7505 ####[facility] [address] [place], [address] Potassium [Moles/Vol] 4.3 mmol/L Normal 3.3-5.1 [facility] Comment on above: Result Comment: Hemo lysis present, Results??could be affected. ?? Performed By: #### L 500.4050, L100.0100, L501.4021, L503.7505 ####[facility] [address] [place], [address] Sodium [Moles/Vol] 139 mmol/L Normal 133-145 [facility] Comment on above: Performed By: #### L 500.4050, L100.0100, L501.4021, L503.7505 ####[facility] [address] [place], [address] T PROT 7.6 g/dL Normal 5.9-8.4 [facility] Comment on above: Performed By: #### L 500.4050, L100.0100, L501.4021, L503.7505 ####[facility] [address] [place], [address] Urea nitrogen [Mass/Vol] 13 mg/dL Normal 4-19 [facility] Comment on above: Performed By: #### L 500.4050, L100.0100, L501.4021, L503.7505 ####[facility] [address] [place], [address] D-Dimer Quantitative (DVT/PE )on 03-18-2025 D-DIMER QUANT 0.73 FEU/ug/m Invalid Interpretation Code 0.27-0.49 [facility] Comment on above: Result Comment: D-Di leticia ELEVATED (>0.49): Additional studies and clinical assessments are indicated to conclude diagnosis of: Deep Vein Thrombosis (DVT) or Pulmonary Embolism (PE) CRITICAL VALUE CALLED TO RENUKA KHAN 03/18/25 2148 Rhianna Dyson. RESULTS READ BACK BY SAME. Performed By: #### L 300.8000, L501.2300, L501.5200 ####[facility] [address] [place], [address] Emergency Department Summary on 03-18-2025 Emergency Department Summary [facility] Medical Records Department [address] [place] [address] Emergency Department Summary 03/18/25 MR#: [id number] Acct: [id number] Name: JOSÉ MIGUEL YOUNG . Rep #: [id number] : 1965 59 From: Lyle Moise MD PCP: Dr. Pierce Wells MD Status:REG ER Location: ED HPI History of Present Illness Chief Complaint: Shortness of Breath Informant: patient Onset/Context/Timing Onset: Days Context: Gradual Onset Timing: Continuous Worsened by: exertion Narrative Narrative: Patient presents for shortness of breath. Recent admission with an echocardiogram and he was told he had CHF. He takes Lasix every other day and has been compliant. He is also compliant with his anticoagulation which he started for atrial fibrillation. He is denying any chest pain, fever, GI symptoms. 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 Prior similar symptoms: Yes Recent Illness/Hospitalization: Yes [facility] Medical History Lymphedema Obesity hypoventilation syndrome Morbid obesity Shoulder pain HTN (hypertension) Home Medications ???Medication ???Instructions ???Recorded ???Last Taken ???Type guanfacine 1 mg tablet 1 tablet PO QPM BLOOD PRESSURE 30 05/09/18 03/01/25 History days ##30 minoxidil 10 mg tablet 20 mg PO DAILY HAIR GROWTH 9 03/02/25 History finasteride 5 mg tablet 5 mg PO QPM 03/02/25 03/01/25 Hist ory losartan 100 mg tablet 100 mg PO DAILY 03/02/25 03/02/25 History nifedipine 30 mg tablet,extended 30 mg PO DAILY 03/02/25 03/02/25 H istory release 24 hr omeprazole 20 mg capsule,delayed 20 mg PO DAILY 03/02/25 03/02/25 H istory release tamsulosin 0.4 mg capsule 0.4 mg PO QHS 03/02/25 03/01/25 Hi story apixaban 5 mg tablet (Eliquis) 5 mg PO BID 30 days #60 tabs 03/05 Unknown Rx aspirin 81 mg chewable tablet 81 mg PO DAILY@0800 30 days #30 Unknown Rx tabs atenolol 100 mg tablet 100 mg PO DAILY 30 days #30 tabs 0 03/05/25 Unknown Rx escitalopram oxalate 10 mg tablet 10 mg PO DAILY 03/18/25 Unknown H istory furosemide 20 mg tablet (Lasix) 20 mg PO .COMPLEX edema 03/18/25 U nknown History Allergy/AdvReac Type Severity Reaction Status Date / Time No Known Allergies Allergy Verified 03/02/25 19:10 Social History Smoking Status: Never smoker alcohol intake: never ROS ROS ED Constitutional Constitutional ED: Denies chills or fever(s) Eyes Eyes: Denies change in vision ENT ENT ED: Denies rhinorrhea or sore throat Cardiovascular Cardiovascular: Denies chest pain, orthopnea, palpitations, paroxysmal nocturnal dyspnea or racing heartbeat Respiratory/Chest Respiratory/Chest: Reports cough, dyspnea and dyspnea on exertion; Denies orthopnea, paroxysmal nocturnal dyspnea or sputum Gastrointestinal Gastrointestinal: Denies abdominal pain, nausea or vomiting Integumentary Denies rash Neurologic Neurologic: Denies headache(s), paresthesias or weakness Hematologic/Lymphatic Hematologic/Lymphatic: Denies easy bruising EXAM Physical Exam Const Vital Signs: 03/18/25 19:19 03/18/25 19:21 03/18/25 19:22 Temperature 98.2 F 98.2 F Temperature Source Oral Oral Pulse Rate 81 81 Respiratory Rate 28 H 28 H Respiratory Effort Respiratory Depth Respiratory Pattern Blood Pressure 194/104 H 194/104 H Blood Pressure Mean 134 134 Pulse Ox 87 87 95 Oxygen Delivery Method Room Air Room Air Nasal Cannula Oxygen Flow Rate (L/min) 2 03/18/25 19:30 03/18/25 19:30 03/18/25 19:31 Temperature Temperature Source Pulse Rate 87 Respiratory Rate 24 H 23 H Respiratory Effort Short of Breath Labored Respiratory Depth Respiratory Pattern Tachypnea Blood Pressure 161/96 H Blood Pressure Mean 117 Pulse Ox 87 94 Oxygen Delivery Method Nasal Cannula Nasal Cannula Oxygen Flow Rate (L/min) 2 2 03/18/25 19:45 03/18/25 19:48 03/18/25 20:11 Temperature Temperature Source Pulse Rate 84 Respiratory Rate 19 H Respiratory Effort Short of Breath Labored Respiratory Depth Deep Respiratory Pattern Tachypnea Blood Pressure Blood Pressure Mean Pulse Ox 90 Oxygen Delivery Method Nasal Cannula Nasal Cannula Oxygen Flow Rate (L/min) 2 3 03/18/25 20:11 03/18/25 20:21 03/18/25 21:00 Temperature 98.3 F 98.8 F Temperature Source Oral Oral Pulse Rate 87 93 Respiratory Rate 24 H 33 H Respiratory Effort Respiratory Depth Respiratory Pattern Blood Pressure 161/89 H 170/105 H Blood Pressure Mean 113 126 Pulse Ox 93 94 95 Oxygen Delivery Method Nasal Cannula Nasal Cannula Nasal Cannula Oxy (more content not included)... Normal [facility] Eosinophil percentageOrdered By: Lyle Moise on 03-18-2025 Eosinophils/100 WBC (Bld) 1.3 % 0-5 [facility] Erythrocyte distribution wid th ratioOrdered By: Lyle Moise on 03-18-2025 Erythrocyte distribution width (RBC) [Ratio] 14.2 % 11.6-14.6 [facility] Erythrocyte distribution wid th standard deviationOrdered By: Lyle Moise on 03-18-2025 Erythrocyte distribution width (RBC) [Ratio] 46.6 fl High 35.1-43.9 [facility] Glomerular filtration rate ( GFR) estimation/1.73 sq m using serum, plasma, or whole bOrdered By: Lyle Moise on 03-18-2025 GFR/1.73 sq M.predicted among non-blacks MDRD (S/P/Bld) [Vol rate/Area] 62 mL/min/{1.73_m2} >60 [facility] Comment on above: mL/min/1.73m2 CKD-EP I Creatinine Equation (2020) H AND P Exam - [place] 03-18-2025 H&P Exam - Hospitalist [facility] Medical Records Department [address] [place] [address] H P Exam - Hospitalist 03/18/252106 MR#: [id number] Acct: [id number] Name: JOSÉ MIGUEL YOUNG Sr. Rep #: [id number] : 1965 59 From: Thierno Campos DO PCP: Dr. Pierce Wells MD Status:ADM [place] Location: [place] [address] HPI - General General Date of Admission: 03/18/25 Date of Service: 03/18/25 Chief Complaint: SOB. HPI Narrative JOSÉ MIGUEL YOUNG, is a 59 M with a past medical history of essential hypertension; on atenolol- hydrochlorothiazide, nifedipine. 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; on minoxidil, GERD; on omeprazole, OA; with shoulder pain and recent admission here from March 02, 2025 to March 05, 2025 with CTA of the chest with IV contrast that revealed no evidence of pulmonary embolism but did show Cardiomegaly with Small Pericardial Effusion with a corresponding elevated NT pro-BNP II of 1,559 pg/mL present on admission consistent with suspected new-onset AE of CHF of uncertain type complicated by clinical evidence of Acute Respiratory Insufficiency in addition to laboratory evidence of Hyperglycemia of 163 mg/dL present on admission suspicious for DM-2 who now re-presents to [facility] ER complaining of SOB. Mr. Young reports his symptoms began approximately 1-2 days prior to admission with persistent shortness of breath. He states his symptoms are made worse with exertion with a respiratory rate of 33 breaths/min noted on admission patient requiring 3 LNC. His initial blood pressure was 194/104 mmHg present on admission consistent with Hypertensive Urgency with an NT pro-BNP of 1,362 pg/mL present on admission with CT scan of the chest revealing bilateral pleural effusions, mosaic attenuation, interlobular septal thickening and ground-glass opacities concerning for pulmonary edema with mild cardiomegaly and stable small pericardial effusion and findings suggestive of pulmonary hypertension in the setting of chronic obesity hypoventilation syndrome with the patient hypoxic at baseline and he was then admitted to the PCU under observation status for ongoing care for stay that is expected to be less than 2 midnights REPLACED BY [facility] Medical History (Updated 03/19/25 @ 02:[address] Thierno Campos, DO) Obesity hypoventilation syndrome Lymphedema Morbid obesity Shoulder pain HTN (hypertension) Home Medications ???Medication ???Instructions ???Recorded ???Last Taken ???Type guanfacine 1 mg tablet 1 tablet PO QPM BLOOD PRESSURE 30 05/09/18 03/01/25 History days ##30 minoxidil 10 mg tablet 20 mg PO DAILY HAIR GROWTH 9 03/02/25 History finasteride 5 mg tablet 5 mg PO QPM 03/02/25 03/01/25 Hist ory losartan 100 mg tablet 100 mg PO DAILY 03/02/25 03/02/25 History nifedipine 30 mg tablet,extended 30 mg PO DAILY 03/02/25 03/02/25 H istory release 24 hr omeprazole 20 mg capsule,delayed 20 mg PO DAILY 03/02/25 03/02/25 H istory release tamsulosin 0.4 mg capsule 0.4 mg PO QHS 03/02/25 03/01/25 Hi story apixaban 5 mg tablet (Eliquis) 5 mg PO BID 30 days #60 tabs 03/05 Unknown Rx aspirin 81 mg chewable tablet 81 mg PO DAILY@0800 30 days #30 Unknown Rx tabs atenolol 100 mg tablet 100 mg PO DAILY 30 days #30 tabs 0 03/05/25 Unknown Rx escitalopram oxalate 10 mg tablet 10 mg PO DAILY 03/18/25 Unknown H istory furosemide 20 mg tablet (Lasix) 20 mg PO .COMPLEX edema 05/11/25 U nknown History Allergy/AdvReac Type Severity Reaction Status Date / Time No Known Allergies Allergy Verified 03/02/25 19:10 Social History Smoking Status: Never smoker alcohol intake: never ROS ROS Narrative Review of Systems: Constitutional: Patient denies fever or chills. Eyes: Patient denies changes in vision or discharge from eyes. ENT: Patient denies runny nose, sore throat or ear pain. Resp: Patient admits to shortness of breath that is persistent. CV: Patient denies chest pain, palpitations or heart racing. GI: Patient denies abdominal pain, nausea, vomiting, diarrhea or constipation. : Patient denies dysuria or hematuria. MSK: Patient admits to generalized weakness due to shortness of breath. Skin: Patient denies rash, abscess, wounds or jaundice. Psych: Patient denies symptoms of uncontrolled depression or anxiety. Neuro: Patient denies headache, paresthesias or focal neurologic deficits. Al (more content not included)... Normal [facility] Hematocrit Auto (Bld) [Volum e fraction]Ordered By: Lyle Moise on 03-18-2025 Hematocrit (Bld) [Volume fraction] 41.6 % 40-54 [facility] Hemoglobin measurementOrdere d By: Lyle Moise on 03-18-2025 Hemoglobin (Bld) [Mass/Vol] 13.4 g/dL 13.0-16.5 [facility] Immature granulocytes/100 WB C Auto (Bld)Ordered By: Lyle Moise on 03-18-2025 Immature granulocytes/100 WBC (Bld) 0.200 % 0.0-0.9 [facility] Comment on above: IG% - Immature Granu locytes (promyelocytes, myelocytes and metamyelocytes) > 1% indicates that a LEFT SHIFT is Present. Ketones Test strip Ql (U)Ord ered By: Thierno Estrada on 03-18-2025 Ketones Ql (U) Negative Negative [facility] L499.0042on 03-18-2025 Trop T High Sen 19 ng/L Normal <=22 [facility] Comment on above: Performed By: #### L 499.0042 ####[facility] [address] [place], [address] L501.4021on 03-18-2025 Trop T High Sen 22 ng/L Normal <=22 [facility] Comment on above: Performed By: #### L 500.4050, L100.0100, L501.4021, L503.7505 ####[facility] [address] [place], [address] L503.7505on 03-18-2025 Natriuretic peptide B (Bld) [Mass/Vol] 1362 pg/mL High <=900 [facility] Comment on above: Result Comment: Hear t Failure Unlikely: < 300 pg/mL Heart Failure Likely < 50 Years: > 450 pg/mL 50-75 Years: > 900 pg/mL >75 Years: > 1800 pg/mL Performed By: #### L 500.4050, L100.0100, L501.4021, L503.7505 ####[facility] [address] [place], [address] Laboratory - Chemistry and C hemistry - challengeOrdered By: Lyle Moise on 03-18-2025 AST [Catalytic activity/Vol] 52 U/L High <38 [facility] Comment on above: Hemolysis present, R esults could be affected. MCV (mean corpuscular volume ) determinationOrdered By: Lyle Moise on 03-18-2025 MCV (RBC) [Entitic vol] 90.6 fL 80-94 [facility] Magnesiumon 03-18-2025 Magnesium [Mass/Vol] 2.1 mg/dL Normal 1.5-2.2 [facility] Comment on above: Performed By: #### L 300.8000, L501.2300, L501.5200 ####[facility] [address] [place], [address] Magnesium measurement (mass/ volume)Ordered By: Thierno Estrada on 03-18-2025 Magnesium (Unsp spec) [Mass/Vol] 2.1 mg/dL 1.5-2.2 [facility] Mean corpuscular hemoglobin (MCH) determinationOrdered By: Lyle Moise on 03-18-2025 MCH (RBC) [Entitic mass] 29.2 pg 27.0-32.0 [facility] Mean corpuscular hemoglobin concentration (MCHC) determinationOrdered By: Lyle Moise on 03-18-2025 MCHC (RBC) [Mass/Vol] 32.2 g/dL 32-36 [facility] Mean platelet volume determi nationOrdered By: Lyle Moise on 03-18-2025 Platelet mean volume (Bld) [Entitic vol] 10.7 fL 6.2-12.0 [facility] Microscopic analysis of urin e for red blood cells (RBC)Ordered By: Thierno Estrada on 03-18-2025 Microscopic analysis of urine for red blood cells (RBC) 0 SEEN /hpf 0-5 [facility] Monocyte percentageOrdered B y: Lyle Moise on 03-18-2025 Monocytes/100 WBC (Bld) 6.1 % 0-10 [facility] Mucus LM Ql (Urine sed)Order ed By: Thierno Estrada on 03-18-2025 Mucus Ql (Urine sed) 0 SEEN /hpf [facility] Natriuretic peptide.B prohor nicola N-Terminal [Mass/volume] in Serum or PlasmaOrdered By: Lyle Moise on 03-18-2025 Natriuretic peptide.B prohormone N-Terminal [Mass/Vol] 1362 pg/mL High <900 [facility] Comment on above: Heart Failure Unlike ly: < 300 pg/mLHeart Failure Likely< 50 Years: > 450 pg/mL50-75 Years: > 900 pg/mL>75 Years: > 1800 pg/mL Neutrophil percentageOrdered By: Lyle Moise on 03-18-2025 Neutrophils/100 WBC (Bld) 70.9 % High 47-70 [facility] Nitrite Test strip Ql (U)Ord ered By: Thierno Estrada on 03-18-2025 Nitrite Ql (U) Negative Negative [facility] No Panel InformationOrdered By: Thierno Estrada on 03-18-2025 Blood Gas Sample Site Not entered [facility] Blood Gas Specimen Type CANDICE [facility] Oxygen Delivery Device Not entered [facility] Nucleated red blood cell per centageOrdered By: Lyle Moise on 03-18-2025 Nucleated RBC/100 WBC (Bld) [Ratio] 0 % 0-5 [facility] Phosphoruson 03-18-2025 Phosphate [Mass/Vol] 2.7 mg/dL Normal 2.7-4.5 [facility] Comment on above: Performed By: #### L 300.8000, L501.2300, L501.5200 ####[facility] [address] [place], [address] Platelet countOrdered By: Arcadio Moise on 03-18-2025 Platelets (Bld) [#/Vol] 246 10*3/uL 150-450 [facility] Potassium measurement (mass/ volume)Ordered By: Lyle Moise on 03-18-2025 Potassium (Unsp spec) [Mass/Vol] 4.3 mmol/L 3.3-5.1 [facility] Comment on above: Hemolysis present, R esults could be affected. Protein Test strip Ql (U)Ord ered By: Tiherno Estrada on 03-18-2025 Protein Ql (U) 15 mg/dl High Negative [facility] RBC Auto (Bld) [#/Vol]Ordere d By: Lyle Moise on 03-18-2025 RBC (Bld) [#/Vol] 4.59 10*6/uL Low 4.6-6.2 [facility] Serum creatinine measurement (mass/volume)Ordered By: Lyle Moise on 03-18-2025 Creatinine [Mass/Vol] 1.33 mg/dL High 0.70-1.20 [facility] Serum globulin measurementOr dered By: Lyle Moise on 03-18-2025 Globulin (S) [Mass/Vol] 3.4 g/dL 2.2-4.2 [facility] Serum glucose measurement (m ass/volume)Ordered By: Lyle Moise on 03-18-2025 Glucose [Mass/Vol] 111 mg/dL High 70-99 [facility] Serum or plasma alanine chu otransferase (ALT) measurementOrdered By: Lyle Moise on 03-18-2025 ALT [Catalytic activity/Vol] 30 U/L <47 [facility] Serum or plasma albumin silvia urement (mass/volume)Ordered By: Lyle Moise on 03-18-2025 Albumin [Mass/Vol] 4.2 g/dL 3.5-5.0 [facility] Serum or plasma albumin/glob ulin mass ratioOrdered By: Lyle Moise on 03-18-2025 Albumin/Globulin [Mass ratio] 1.3 {ratio} 0.9-2.4 [facility] Serum or plasma alkaline karon sphatase measurementOrdered By: Lyle Moise on 03-18-2025 ALP [Catalytic activity/Vol] 57 U/L 40-129 [facility] Serum or plasma calcium silvia urement (mass/volume)Ordered By: Lyle Moise on 03-18-2025 Calcium [Mass/Vol] 9.5 mg/dL 7.6-11.0 [facility] Serum or plasma urea nitroge n measurement (mass/volume)Ordered By: Lyle Moise on 03-18-2025 Urea nitrogen [Mass/Vol] 13 mg/dL 4-19 [facility] Sodium levelOrdered By: Jorje Moise on 03-18-2025 Sodium [Moles/Vol] 139 mmol/L 133-145 [facility] Squamous epithelial cells de tection in urine sediment by light microscopyOrdered By: Thierno Estrada on 03-18-2025 Epithelial cells.squamous LM Ql (Urine sed) 0-5 SEEN /hpf 0-5 [facility] Total proteinOrdered By: Edgar Moise on 03-18-2025 Protein [Mass/Vol] 7.6 g/dL 5.9-8.4 [facility] Troponin T.cardiac [Mass/vol ume] in Serum or Plasma by High sensitivity methodOrdered By: Lyle Moise on 03-18-2025 Troponin T.cardiac High sensitivity method [Mass/Vol] 23 ng/L High <22 [facility] Troponin T.cardiac High sensitivity method [Mass/Vol] 19 ng/L <22 [facility] Troponin T.cardiac High sensitivity method [Mass/Vol] 22 ng/L <22 [facility] Urinalysis, Completeon 05-11 -2025 BACTERIA 1+ /hpf Normal None Seen [facility] Comment on above: Order Comment: CLEAN CATCH Performed By: #### L 400.0001 ####[facility] [address] [place], [address] EPI,SQUAMOUS 0-5 SEEN Normal 0-5 [facility] Comment on above: Order Comment: CLEAN CATCH Performed By: #### L 400.0001 ####[facility] [address] [place], [address] Mucus Ql (Urine sed) 0 SEEN Normal [facility] Comment on above: Order Comment: CLEAN CATCH Performed By: #### L 400.0001 ####[facility] [address] [place], [address] RBC 0 SEEN Normal 0-5 [facility] Comment on above: Order Comment: CLEAN CATCH Performed By: #### L 400.0001 ####[facility] [address] [place], [address] WBC 0 SEEN Normal 0-5 [facility] Comment on above: Order Comment: CLEAN CATCH Performed By: #### L 400.0001 ####[facility] [address] [place], [address] Urine clarityOrdered By: Joey Estrada on 03-18-2025 Clarity (U) Clear Clear [facility] Urine color determinationOrd ered By: Thierno Estrada on 03-18-2025 Color (U) Yellow Yellow [facility] Urine glucose detectionOrder ed By: Thierno Estrada on 03-18-2025 Glucose Ql (U) Normal mg/dl Normal [facility] Urine leukocyte esterase det ection by dipstickOrdered By: Thierno Estrada on 03-18-2025 Leukocyte esterase Test strip Ql (U) Negative Negative [facility] Urine pHOrdered By: Thierno dahl on 03-18-2025 pH (U) 7.0 [pH] 5.0 - 8.0 [facility] Urine sediment bacteria coun t by microscopy (number/high power field)Ordered By: Thierno Estrada on 03-18-2025 Bacteria LM.HPF (Urine sed) [#/Area] 1 /[HPF] None Seen [facility] Urine specific gravity measu rementOrdered By: Thierno Estrada on 03-18-2025 Specific gravity (U) [Rel density] 1.005 1.002-1.030 [facility] Urine urobilinogen measureme ntOrdered By: Thierno Estrada on 03-18-2025 Urobilinogen Ql (U) Normal mg/dl Normal [facility] Venous Blood Gason Blood Gas Type CANDICE Normal [facility] Comment on above: Performed By: #### L 9000.0810 ####[facility] [address] [place], [address] CO2 [Moles/Vol] 33 mmol/L Normal 23-33 [facility] Comment on above: Performed By: #### L 9000.0810 ####[facility] [address] [place], [address] HCO3 (Bld) [Moles/Vol] 32 mmol/L High 22-26 [facility] Comment on above: Performed By: #### L 9000.0810 ####[facility] [address] [place], [address] O2 Delivery Dev Not entered Normal [facility] Comment on above: Performed By: #### L 9000.0810 ####[facility] [address] [place], [address] SITE Not entered Normal [facility] Comment on above: Performed By: #### L 9000.0810 ####[facility] [address] [place], [address] VBG BE 7 mmol/L High -1.0-3.5 [facility] Comment on above: Performed By: #### L 9000.0810 ####[facility] [address] [place], [address] VBG pCO2 47.1 mmHg Normal 41-51 [facility] Comment on above: Performed By: #### L 9000.0810 ####[facility] [address] [place], [place], [address] VBG pH 7.44 High 7.32-7.42 [facility] Comment on above: Performed By: #### L 9000.0810 ####[facility] [address] [place], [place], [address] VBG PO2 33 mmHg Normal 25-40 [facility] Comment on above: Performed By: #### L 9000.0810 ####[facility] [address] [place], [place], [address] VBG SO2 64 Normal 50-70 [facility] Comment on above: Performed By: #### L 9000.0810 ####[facility] [address] [place], [place], [address] Venous blood base excess vicki surementOrdered By: Thierno Estrada on 03-18-2025 Base excess Calc (BldV) [Moles/Vol] 7 mmol/L High -1.0-3.5 [facility] Venous blood bicarbonate vicki surementOrdered By: Thierno Estrada on 03-18-2025 HCO3 (Bld) [Moles/Vol] 32 mmol/L High 22-26 [facility] Venous blood oxygen saturati on measurementOrdered By: Thierno Estrada on 03-18-2025 Oxygen saturation in Blood 64 % 50-70 [facility] Venous blood pH measurementO rdered By: Thierno Estrada on 03-18-2025 pH (BldV) 7.44 [pH] High 7.32-7.42 [facility] Venous blood partial pressur e of carbon dioxide measurementOrdered By: Thierno Estrada on 03-18-2025 CO2 (BldV) [Partial pressure] 47.1 mm[Hg] 41-51 [facility] Venous blood partial pressur e of oxygen measurementOrdered By: Thierno Estrada on 03-18-2025 Oxygen (BldV) [Partial pressure] 33 mm[Hg] 25-40 [facility] White blood cell (WBC) count Ordered By: Lyle Moise on 03-18-2025 WBC (Bld) [#/Vol] 6.4 10*3/uL 4.4-11.0 [facility] White blood cell countOrdere d By: Thierno Estrada on 03-18-2025 White blood cell count 0 SEEN /hpf 0-5 [facility] Discharge Instructionon 02-07 Discharge Instruction [facility] Medical Records Department [address] [place] [address] Instructions for Home/Discharge Instructions 03/05/25 1445 MR#: [id number] Acct: [id number] Name: JOSÉ MIGUEL YOUNG . Rep #: [id number] : 1965 59 From: Jostin Arriaza DO PCP: Dr. Pierce Wells MD Status:ADM IN Discharge Instructions Diet Discharge Diet: 2000 Calorie Control Diet and 4000 mg Sodium Diet DC O2, CPAP, BIPAP needs Home O2 Discharge instructions: No Dressing / Incision Discharge Activity: No Restrictions Follow Up Care Test Results: Test results from this visit will be discussed in further detail at your follow-up appointment, if applicable. Discharge Plan Admission Admit Date/Time: 03/02/25 22:46 Primary Reason for Your Visit: Shortness of breath Attending Provider: Jostin Arriaza Primary Care Provider: Pierce Wells Consulting Providers: Thierno Campos; Pierce Florian Instructions Additional Instructions / Restrictions: Please take medications as noted below. Importantly, take Eliquis twice daily for your A-fib and decrease dose of aspirin to 81 mg daily (baby aspirin). Take Lasix up to once daily as needed. Follow-up in the cardiology office in the next few weeks. Discharge Orders/Prescriptions Prescriptions: New atenolol 100 mg Tablet 100 mg PO DAILY 30 Days Qty: 30 2RF aspirin 81 mg Tablet,Chewable 81 mg PO DAILY@0800 30 Days Qty: 30 2RF Eliquis 5 mg Tablet 5 mg PO BID 30 Days Qty: 60 2RF furosemide [Lasix] 20 mg tablet 20 mg PO DAILY PRN (Reason: edema) Qty: 30 2RF Continued guanfacine 1 mg tablet 1 tablet PO QPM 30 Days Qty: 30 Patient Comments: escitalopram oxalate 20 MG tablet 20 mg PO DAILY minoxidil 10 MG tablet 20 mg PO DAILY Patient Comments: TAKE 2 TABLETS BY MOUTH ONCE DAILY Rx Instructions: nifedipine 30 mg tablet extended release 24hr 30 mg PO DAILY tamsulosin 0.4 mg capsule 0.4 mg PO QHS omeprazole 20 mg capsule,delayed release(DR/EC) 20 mg PO DAILY losartan 100 mg tablet 100 mg PO DAILY finasteride 5 mg tablet 5 mg PO QPM Discontinued atenolol-chlorthalidone 1 TAB tablet 1 tab PO DAILY Rx Instructions: aspirin 325 MG tablet 325 mg PO DAILY@0800 ibuprofen 800 mg tablet 800 mg PO BID PRN PRN (Reason: fever or pain) Referrals / Follow Up: Sagrario Casanova MD [Med Staff - Active Staff] - Pierce Wells MD [Primary Care Provider] - Disposition Disposition (needs filled in before D/C Order can be placed): Home, Self Care 03/05/25 1448 Jostin Arriaza DO CC: Dr. Thierno Campos DO; Dr. Pierce Wells MD; Dr. Pierce Florian DO Signed Normal [facility] Anion gap in Serum or Plasma Ordered By: Pierce Florian on 03-04-2025 Anion gap [Moles/Vol] 10 mmol/L 03-22 [facility] BUN/creatinine ratioOrdered By: Pierce Florian on 03-04-2025 Urea nitrogen/Creatinine [Mass ratio] 11.8 mg/mg - [facility] Basic Metabolic Profile (BMP )on 03-04-2025 BUN/CRE 11.8 RATIO Normal 08-27 [facility] Comment on above: Performed By: #### L 500.2500 ####[facility] [address] [place], [address] Calcium [Mass/Vol] 9.5 mg/dL Normal 7.6-11.0 [facility] Comment on above: Performed By: #### L 500.2500 ####[facility] [address] [place], [address] Chloride [Moles/Vol] 94 mmol/L Low 98-108 [facility] Comment on above: Performed By: #### L 500.2500 ####[facility] [address] [place], [address] CO2 [Moles/Vol] 33.8 mmol/L High 21.0-32.0 [facility] Comment on above: Performed By: #### L 500.2500 ####[facility] [address] [place], [address] Creatinine [Mass/Vol] 1.00 mg/dL Normal 0.70-1.20 [facility] Comment on above: Performed By: #### L 500.2500 ####[facility] [address] [place], [address] ECRCL 117.38 ml/min Normal 50-250 [facility] Comment on above: Performed By: #### L 500.2500 ####[facility] [address] [place], [address] GAP 10 Normal 5-15 [facility] Comment on above: Performed By: #### L 500.2500 ####[facility] [address] [place], [address] GFR/1.73 sq M.predicted among non-blacks MDRD (S/P/Bld) [Vol rate/Area] 87 mL/min/{1.73_m2} Normal >60 [facility] Comment on above: Result Comment: mL/m in/1.73m2 CKD-EPI Creatinine Equation (2020) Performed By: #### L 500.2500 ####[facility] [address] [place], [address] Glucose [Mass/Vol] 160 mg/dL High 70-99 [facility] Comment on above: Performed By: #### L 500.2500 ####[facility] [address] [place], [address] Potassium [Moles/Vol] 4.0 mmol/L Normal 3.3-5.1 [facility] Comment on above: Performed By: #### L 500.2500 ####[facility] [address] [place], [place], [id number] Sodium [Moles/Vol] 138 mmol/L Normal 133-145 [facility] Comment on above: Performed By: #### L 500.2500 ####[facility] [address] [place], [place], [id number] Urea nitrogen [Mass/Vol] 12 mg/dL Normal 4-19 [facility] Comment on above: Performed By: #### L 500.2500 ####[facility] [address] [place], [place], [id number] Carbon dioxide, total [Moles /volume] in Central venous bloodOrdered By: Pierce Florian on 03-04-2025 CO2 [Moles/Vol] 33.8 mmol/L High 21.0-32.0 [facility] Chloride assayOrdered By: Yulissa Florian on 03-04-2025 Chloride [Moles/Vol] 94 mmol/L Low 98-108 [facility] Estimation of creatinine jose luis aranceOrdered By: Pierce Florian on 03-04-2025 Estimated Creatinine Clearance Calc 117.38 ml/min 50-250 [facility] GFR/1.73 sq M.predicted gregorio g non-blacks MDRD (S/P/Bld) [Vol rate/Area]Ordered By: Pierce Florian on 03-04-2025 Estimated GFR (MDRD) Non-Af Amer 87 >60 [facility] Comment on above: mL/min/1.73m2 CKD-EP I Creatinine Equation (2020) Glomerular filtration rate ( GFR) estimation/1.73 sq m using serum, plasma, or whole bOrdered By: Pierce Florian on 03-04-2025 GFR/1.73 sq M.predicted among non-blacks MDRD (S/P/Bld) [Vol rate/Area] 87 mL/min/{1.73_m2} >60 [facility] [facility] Comment on above: mL/min/1.73m2 CKD-EP I Creatinine Equation (2020) Potassium (Unsp spec) [Mass/ Vol]Ordered By: Pierce Florian on 03-04-2025 Potassium [Moles/Vol] 4.0 mmol/L 3.3-5.1 [facility] Potassium measurement (mass/ volume)Ordered By: Pierce Florian on 03-04-2025 Potassium (Unsp spec) [Mass/Vol] 4.0 mmol/L 3.3-5.1 [facility] Serum creatinine measurement (mass/volume)Ordered By: Pierce Florian on 03-04-2025 Creatinine [Mass/Vol] 1.00 mg/dL 0.70-1.20 [facility] Serum glucose measurement (m ass/volume)Ordered By: Pierce Florian on 03-04-2025 Glucose [Mass/Vol] 160 mg/dL High 70-99 [facility] Serum or plasma calcium silvia urement (mass/volume)Ordered By: Pierce Florian on 03-04-2025 Calcium [Mass/Vol] 9.5 mg/dL 7.6-11.0 [facility] Serum or plasma urea nitroge n measurement (mass/volume)Ordered By: Pierce Florian on 03-04-2025 Urea nitrogen [Mass/Vol] 12 mg/dL 4-19 [facility] Sodium levelOrdered By: Pierce Florian on 03-04-2025 Sodium [Moles/Vol] 138 mmol/L 133-145 [facility] Absolute lymphocyte countOrd ered By: Thierno Estrada on 03-03-2025 Lymphocytes Auto (Unsp spec) [#/Vol] 1.01 10*3/uL 0.83-4.51 [facility] Absolute neutrophil countOrd ered By: Thierno Estrada on 03-03-2025 Neutrophils (Bld) [#/Vol] 2.8 10*3/uL 2.0-7.7 [facility] Automated lymphocyte count a s percentage of total leukocytesOrdered By: Thierno Estrada on 03-03-2025 Lymphocytes/100 WBC Auto (Unsp spec) 23.3 % 19-41 [facility] Base excess Calc (BldV) [Mol es/Vol]Ordered By: Thierno Estrada on 03-03-2025 Venous Blood Base Excess 5 mmol/L High -1.0-3.5 [facility] Basophil percentageOrdered B y: Thierno Estrada on 03-03-2025 Basophils/100 WBC (Bld) 0.7 % 0-1 [facility] Bilirubin, totalOrdered By: Thieron Estrada on 03-03-2025 Bilirubin [Mass/Vol] 1.47 mg/dL High 0.00-1.30 [facility] CBC W/Diff, Automatedon 02-07 Absolute Lymph 1.01 X10 3/uL Normal 0.83-4.51 [facility] Comment on above: Performed By: #### L 100.0100, L500.4100, L500.4050 ####[facility] [address] [place], [address] Absolute Neut 2.8 X10 3/uL Normal 2.0-7.7 [facility] Comment on above: Performed By: #### L 100.0100, L500.4100, L500.4050 ####[facility] [address] [place], [address] Basophils/100 WBC (Bld) 0.7 % Normal 0-1 [facility] Comment on above: Performed By: #### L 100.0100, L500.4100, L500.4050 ####[facility] [address] [place], [address] Eosinophils/100 WBC (Bld) 2.1 % Normal 0-5 [facility] Comment on above: Performed By: #### L 100.0100, L500.4100, L500.4050 ####[facility] [address] [place], [address] Erythrocyte distribution width (RBC) [Ratio] 14.3 % Normal 11.6-14.6 [facility] Comment on above: Performed By: #### L 100.0100, L500.4100, L500.4050 ####[facility] [address] [place], [address] Hematocrit (Bld) [Volume fraction] 35.1 % Low 40-54 [facility] Comment on above: Performed By: #### L 100.0100, L500.4100, L500.4050 ####[facility] [address] [place], [address] Hemoglobin (Bld) [Mass/Vol] 11.6 g/dL Low 13.0-16.5 [facility] Comment on above: Performed By: #### L 100.0100, L500.4100, L500.4050 ####[facility] [address] [place], [address] IG% 0.200 Normal 0.0-0.9 [facility] Comment on above: Result Comment: IG% - Immature Granulocytes (promyelocytes, myelocytes and metamyelocytes) > 1% indicates that a LEFT SHIFT is Present. Performed By: #### L 100.0100, L500.4100, L500.4050 ####[facility] [address] [place], [address] Lymphocytes/100 WBC (Bld) 23.3 % Normal 19-41 [facility] Comment on above: Performed By: #### L 100.0100, L500.4100, L500.4050 ####[facility] [address] [place], [address] MCH (RBC) [Entitic mass] 29.5 pg Normal 27.0-32.0 [facility] Comment on above: Performed By: #### L 100.0100, L500.4100, L500.4050 ####[facility] [address] [place], [address] MCHC (RBC) [Mass/Vol] 33.0 g/dL Normal 32-36 [facility] Comment on above: Performed By: #### L 100.0100, L500.4100, L500.4050 ####[facility] [address] [place], [address] MCV (RBC) [Entitic vol] 89.3 fL Normal 80-94 [facility] Comment on above: Performed By: #### L 100.0100, L500.4100, L500.4050 ####[facility] [address] [place], [address] Monocytes/100 WBC (Bld) 8.5 % Normal 0-10 [facility] Comment on above: Performed By: #### L 100.0100, L500.4100, L500.4050 ####[facility] [address] [place], [address] Neutrophils/100 WBC (Bld) 65.2 % Normal 47-70 [facility] Comment on above: Performed By: #### L 100.0100, L500.4100, L500.4050 ####[facility] [address] [place], [address] Nucleated RBC (Bld) [#/Vol] 0 10*3/uL Normal 0-5 [facility] Comment on above: Performed By: #### L 100.0100, L500.4100, L500.4050 ####[facility] [address] [place], [address] Platelet mean volume (Bld) [Entitic vol] 10.3 fL Normal 6.2-12.0 [facility] Comment on above: Performed By: #### L 100.0100, L500.4100, L500.4050 ####[facility] [address] [place], [address] Platelets (Bld) [#/Vol] 215 10*3/uL Normal 150-450 [facility] Comment on above: Performed By: #### L 100.0100, L500.4100, L500.4050 ####[facility] [address] [place], [address] RBC (Bld) [#/Vol] 3.93 10*6/uL Low 4.6-6.2 [facility] Comment on above: Performed By: #### L 100.0100, L500.4100, L500.4050 ####[facility] [address] [place], [address] RDW SD 47.1 fl High 35.1-43.9 [facility] Comment on above: Performed By: #### L 100.0100, L500.4100, L500.4050 ####[facility] [address] [place], [address] WBC (Bld) [#/Vol] 4.3 10*3/uL Low 4.4-11.0 [facility] Comment on above: Performed By: #### L 100.0100, L500.4100, L500.4050 ####[facility] [address] [place], [address] CO2 (BldV) [Moles/Vol]Ordere d By: Thierno Estrada on 03-03-2025 CO2 [Moles/Vol] 31 mmol/L 23-33 [facility] CO2 (BldV) [Partial pressure ]Ordered By: Thierno Estrada on 03-03-2025 Bed Mix Venous Bld PCO2 at Pat Temp 42.5 mmHg 41-51 [facility] Calculated very low density lipoprotein (VLDL) cholesterol measurementOrdered By: Thierno Estrada on 03-03-2025 Calculated very low density lipoprotein (VLDL) cholesterol measurement 23 mg/dL - [facility] VLDL Cholesterol 23 mg/dL -40 [facility] Comprehensive Metabolic Prof ilon 03-03-2025 Albumin [Mass/Vol] 3.9 g/dL Normal 3.5-5.0 [facility] Comment on above: Performed By: #### L 100.0100, L500.4100, L500.4050 ####[facility] [address] [place], [address] Albumin/Globulin [Mass ratio] 1.2 {ratio} Normal 0.9-2.4 [facility] Comment on above: Performed By: #### L 100.0100, L500.4100, L500.4050 ####[facility] [address] [place], [address] ALK PHOS 49 U/L Normal 40-129 [facility] Comment on above: Result Comment: Hemo lysis Present, Results may be affected. Performed By: #### L 100.0100, L500.4100, L500.4050 ####[facility] [address] [place], [address] ALT [Catalytic activity/Vol] 36 U/L Normal <=46 [facility] Comment on above: Result Comment: Hemo lysis present, Results??could be affected. ?? Performed By: #### L 100.0100, L500.4100, L500.4050 ####[facility] [address] [place], [address] AST [Catalytic activity/Vol] 89 U/L High <=37 [facility] Comment on above: Result Comment: Hemo lysis present, Results??could be affected. ?? Performed By: #### L 100.0100, L500.4100, L500.4050 ####[facility] [address] [place], [address] Bilirubin [Mass/Vol] 1.47 mg/dL High 0.00-1.30 [facility] Comment on above: Performed By: #### L 100.0100, L500.4100, L500.4050 ####[facility] [address] [place], [address] BUN/CRE 12.7 RATIO Normal 10-20 [facility] Comment on above: Performed By: #### L 100.0100, L500.4100, L500.4050 ####[facility] [address] [place], [address] Calcium [Mass/Vol] 9.2 mg/dL Normal 7.6-11.0 [facility] Comment on above: Performed By: #### L 100.0100, L500.4100, L500.4050 ####[facility] [address] [place], [address] Chloride [Moles/Vol] 99 mmol/L Normal 98-108 [facility] Comment on above: Performed By: #### L 100.0100, L500.4100, L500.4050 ####[facility] [address] [place], [address] CO2 [Moles/Vol] 26.7 mmol/L Normal 21.0-32.0 [facility] Comment on above: Performed By: #### L 100.0100, L500.4100, L500.4050 ####[facility] [address] [place], [address] Creatinine [Mass/Vol] 1.19 mg/dL Normal 0.70-1.20 [facility] Comment on above: Performed By: #### L 100.0100, L500.4100, L500.4050 ####[facility] [address] [place], [address] ECRCL 99.78 ml/min Normal 50-250 [facility] Comment on above: Performed By: #### L 100.0100, L500.4100, L500.4050 ####[facility] [address] [place], [address] GAP 12 Normal 5-15 [facility] Comment on above: Performed By: #### L 100.0100, L500.4100, L500.4050 ####[facility] [address] [place], [address] GFR/1.73 sq M.predicted among non-blacks MDRD (S/P/Bld) [Vol rate/Area] 70 mL/min/{1.73_m2} Normal >60 [facility] Comment on above: Result Comment: mL/m in/1.73m2 CKD-EPI Creatinine Equation (2020) Performed By: #### L 100.0100, L500.4100, L500.4050 ####[facility] [address] [place], [address] Globulin (S) [Mass/Vol] 3.1 g/dL Normal 2.2-4.2 [facility] Comment on above: Performed By: #### L 100.0100, L500.4100, L500.4050 ####[facility] [address] [place], [address] Glucose [Mass/Vol] 117 mg/dL High 70-99 [facility] Comment on above: Performed By: #### L 100.0100, L500.4100, L500.4050 ####[facility] [address] [place], [address] Potassium [Moles/Vol] 4.2 mmol/L Normal 3.3-5.1 [facility] Comment on above: Result Comment: Hemo lysis present, Results??could be affected. ?? Performed By: #### L 100.0100, L500.4100, L500.4050 ####[facility] [address] [place], [address] Sodium [Moles/Vol] 138 mmol/L Normal 133-145 [facility] Comment on above: Performed By: #### L 100.0100, L500.4100, L500.4050 ####[facility] [address] [place], [address] T PROT 7.0 g/dL Normal 5.9-8.4 [facility] Comment on above: Performed By: #### L 100.0100, L500.4100, L500.4050 ####[facility] [address] [place], [address] Urea nitrogen [Mass/Vol] 15 mg/dL Normal 4-19 [facility] Comment on above: Performed By: #### L 100.0100, L500.4100, L500.4050 ####[facility] [address] [place], [address] Echocardiogram study reportO rdered By: Sagrario Casanova on 03-03-2025 Study report [facility] [address] [place] [address] Echo Complete W/ Contrast 03/03/25 0806 MR#: [id number] Acct: [id number] Name: JOSÉ MIGUEL YOUNG Sr. Rep #: [id number] : 1965 59 From: Sagrario Casanova MD Attending Dr: Dr. Pierce Florian, Status: ADM IN Ordering Dr: Thierno Campos DO Date: 03/02/25 [facility] Sex: M C Admitted: 03/02/25 Reason For Study Reason For Study: CHF Procedure This was a 2D Doppler, Color Flow transthoracic echocardiogram. The study was technically difficult. Contrast injection was performed. Exam performed portable in patient room. Left Ventricle Normal LV size. Mild concentric left ventricular hypertrophy. The left ventricular ejection fraction is 70 %. Stage 1 diastolic dysfunction. Right Ventricle Normal right ventricle. Atria There is severe biatrial dilatation. Mitral Valve Trivial mitral valve insufficiency. Tricuspid Valve Trivial tricuspid valve insufficiency. Unable to estimate RV systolic pressure due to insufficient tricuspid regurgitant envelope. Aortic Valve Trisinus/trileaflet aortic valve. Pulmonic Valve The pulmonic valve is not well visualized. Great Vessels Normal sized aortic root. Pericardium/Pleural Trivial to small pericardial effusion. Medication Diluted definity 2ml given slow IV push to enhance endocardial definition. MMode/2D Measurements & Calculations LVIDd: 5.5 cm IVSd: 1.2 cm Ao root diam: 3.9 cm LVIDs: 3.4 cm LVPWd: 1.2 cm FS: 38.7 % ___ LAV(MOD-bp): 84.5 ml LVAd ap4: 28.0 cm2 SV(MOD-sp4): 57.6 ml LAV(MOD-bp) Indexed: 32.4 ml/m2 LVLd ap4: 8.1 cm SI(MOD-sp4): 22.1 ml/m2 LAV(MOD-sp2): 71.1 ml EDV(MOD-sp4): 83.1 ml LAV(MOD-sp4): 95.5 ml EDV(sp4-el): 82.1 ml LVAs ap4: 13.7 cm2 LVLs ap4: 6.3 cm ESV(MOD-sp4): 25.5 ml ESV(sp4-el): 25.4 ml EF(MOD-sp4): 69.3 % EF(sp4-el): 69.0 % __ SV(sp4-el): 56.6 ml LA A4 area: 28.7 cm2 LA dimension(2D): 5.0 cm Doppler Measurements & Calculations MV E max lexii: 131.3 cm/sec Lat Peak E' Lexii: 10.5 cm/sec Med Peak E' Lexii: 8.2 cm/sec E/E' lat: 12.6 E/E' med: 16.0 __ MV V2 max: 162.5 cm/sec Ao V2 max: 169.3 cm/sec LV V1 max: 134.2 cm/sec MV max P.6 mmHg Ao max P.5 mmHg LV V1 max P.2 mmHg MV V2 mean: 81.9 cm/sec Ao V2 mean: 113.6 cm/sec LV V1 mean P.6 mmHg MV mean P.4 mmHg Ao mean P.0 mmHg LV V1 mean: 87.5 cm/sec MV V2 VTI: 38.5 cm Ao V2 VTI: 34.2 cm LV V1 VTI: 26.7 cm AV (velocity ratio): 0.78 __ PA V2 max: 121.4 cm/sec ECHO/Echo Complete W/ Contrast Interpretation Summary The left ventricular ejection fraction is 70 %. Stage 1 diastolic dysfunction. There is severe biatrial dilatation. Trivial to small pericardial effusion. The study was technically difficult. Ordering Physician: Thierno Campos Performed By: Jhonny Martines RCS 03/03/255 Date _ Sagrario Casanova MD CC: Dr. Thierno Campos DO; Dr. Pierce Wells MD; Dr. Pierce Florian DO ~ Date Dictated: 03/03/25805 Date Transcribed: 03/03/251124 Prn Physical Therapist: Signed [facility] Work Phone: Eosinophil percentageOrdered By: Thierno Estrada on 03-03-2025 Eosinophils/100 WBC (Bld) 2.1 % 0-5 [facility] Erythrocyte distribution wid th (RBC) [Ratio]Ordered By: Thierno Estrada on 03-03-2025 Erythrocyte distribution width (RBC) [Entitic vol] 47.1 fL High 35.1-43.9 [facility] Erythrocyte distribution wid th ratioOrdered By: Thierno Estrada on 03-03-2025 Erythrocyte distribution width (RBC) [Ratio] 14.3 % 11.6-14.6 [facility] Erythrocyte distribution wid th standard deviationOrdered By: Thierno Estrada on 03-03-2025 Erythrocyte distribution width (RBC) [Ratio] 47.1 fl High 35.1-43.9 [facility] Folate [Moles/Vol]Ordered By : Thierno Estrada on 03-03-2025 Serum Folate 5.48 ng/mL 4.60-34.80 [facility] Folate [Moles/volume] in Ser um or PlasmaOrdered By: Thierno Estrada on 03-03-2025 Folate [Moles/Vol] 5.48 ng/mL 4.60-34.80 [facility] Folates,Serum (Folic Acid)on 03-03-2025 FOLATES,SERUM 5.48 ng/mL Normal 4.60-34.80 [facility] Comment on above: Order Comment: PATILucero NT IS BACK Performed By: #### L 506.0200, L501.9985 ####[facility] [address] [place], [place], [id number] Hematocrit Auto (Bld) [Volum e fraction]Ordered By: Thierno Estrada on 03-03-2025 Hematocrit (Bld) [Volume fraction] 35.1 % Low 40-54 [facility] Hemoglobin measurementOrdere d By: Thierno Estrada on 03-03-2025 Hemoglobin (Bld) [Mass/Vol] 11.6 g/dL Low 13.0-16.5 [facility] Immature granulocytes/100 WB C Auto (Bld)Ordered By: Thierno Estrada on 03-03-2025 Immature granulocytes/100 WBC (Bld) 0.200 % 0.0-0.9 [facility] Comment on above: IG% - Immature Granu locytes (promyelocytes, myelocytes and metamyelocytes) > 1% indicates that a LEFT SHIFT is Present. L503.7505on 03-03-2025 Natriuretic peptide B (Bld) [Mass/Vol] 1568 pg/mL High <=900 [facility] Comment on above: Result Comment: Hear t Failure Unlikely: < 300 pg/mL Heart Failure Likely < 50 Years: > 450 pg/mL 50-75 Years: > 900 pg/mL >75 Years: > 1800 pg/mL Performed By: #### L 503.7505 ####[facility] [address] [place], [place], [id number] LDL calc ser/plasOrdered By: Thierno Estrada on 03-03-2025 Cholesterol in LDL [Mass/Vol] 88 mg/dL [facility] Comment on above: Ejwvryoewk=511-116 m g/dL & Higher Cylm=896 mg/dL or greater LDL Cholesterol, Calculated 88 mg/dL [facility] Comment on above: Larrtizjkl=744-360 m g/dL & Higher Wylq=375 mg/dL or greater Laboratory - Chemistry and C hemistry - challengeOrdered By: Thierno Estrada on 03-03-2025 AST [Catalytic activity/Vol] 89 U/L High <38 [facility] Comment on above: Hemolysis present, R esults could be affected. Lipid Profileon 03-03-2025 CHOL:HDL 4.83 Normal [facility] Comment on above: Performed By: #### L 100.0100, L500.4100, L500.4050 ####[facility] [address] [place], [address] Cholesterol [Mass/Vol] 140 mg/dL Normal <=200 [facility] Comment on above: Result Comment: Chol esterol level, Desirable <200 mg/dL Borderline high cholesterol 200-239 mg/dL High cholesterol >=240 mg/dL Recommendations of the NCEP Adult Treatment Panel for the following risk-cutoff thresholds for the [place] population. Performed By: #### L 100.0100, L500.4100, L500.4050 ####[facility] [address] [place], [address] Cholesterol in HDL [Mass/Vol] 29 mg/dL Low [facility] Comment on above: Result Comment: Odalys onal Cholesterol Education Program (NCEP) guidelines: <40 mg/dL: Low HDL-cholesterol (major risk factor for CHD) >= 60 mg/dL: High HDL-cholesterol (negative risk factor for CHD) HDL-cholesterol is affected by a number of factors, e.g. smoking, exercise, hormones, sex and age. Performed By: #### L 100.0100, L500.4100, L500.4050 ####[facility] [address] [place], [address] Cholesterol in LDL [Mass/Vol] 88 mg/dL Normal [facility] Comment on above: Result Comment: Bord lpktyj=479-184 mg/dL Higher Cukc=088 mg/dL or greater Performed By: #### L 100.0100, L500.4100, L500.4050 ####[facility] [address] [place], [address] Cholesterol in VLDL [Mass/Vol] 23 mg/dL Normal 5-40 [facility] Comment on above: Performed By: #### L 100.0100, L500.4100, L500.4050 ####[facility] [address] [place], [address] Triglyceride [Mass/Vol] 115 mg/dL Normal [facility] Comment on above: Result Comment: The drugs N-Acetylcysteine and Metamizole may falsely depress this assay. Normal range: <150 mg/dL Borderline High: 150-199 mg/dL High: 200-499 mg/dL Very High: >500 mg/dL Performed By: #### L 100.0100, L500.4100, L500.4050 ####[facility] [address] [facility] [place], [address] Lymphocytes Auto (Unsp spec) [#/Vol]Ordered By: Thierno Estrada on 03-03-2025 Lymphocytes (Bld) [#/Vol] 1.01 10*3/uL 0.83-4.51 [facility] Lymphocytes/100 WBC Auto (Un sp spec)Ordered By: Thierno Estrada on 03-03-2025 Lymphocytes/100 WBC (Bld) 23.3 % 19-41 [facility] MCV (mean corpuscular volume ) determinationOrdered By: Thierno Estrada on 03-03-2025 MCV (RBC) [Entitic vol] 89.3 fL 80-94 [facility] Magnesiumon 03-03-2025 Magnesium [Mass/Vol] 1.8 mg/dL Normal 1.5-2.2 [facility] Comment on above: Performed By: #### L 501.5200, L501.9520, L503.0106 ####[facility] [address] [place], [address] Mean corpuscular hemoglobin (MCH) determinationOrdered By: Thierno Estrada on 03-03-2025 MCH (RBC) [Entitic mass] 29.5 pg 27.0-32.0 [facility] Mean corpuscular hemoglobin concentration (MCHC) determinationOrdered By: Thierno Estrada on 03-03-2025 MCHC (RBC) [Mass/Vol] 33.0 g/dL 32-36 [facility] Mean platelet volume determi nationOrdered By: Thierno Estrada on 03-03-2025 Platelet mean volume (Bld) [Entitic vol] 10.3 fL 6.2-12.0 [facility] Monocyte percentageOrdered B y: Thierno Estrada on 03-03-2025 Monocytes/100 WBC (Bld) 8.5 % 0-10 [facility] Natriuretic peptide.B prohor nicola N-Terminal [Mass/Vol]Ordered By: Thierno Estrada on 03-03-2025 Natriuretic peptide B (Bld) [Mass/Vol] 1568 pg/mL High <900 [facility] Comment on above: Heart Failure Unlike ly: < 300 pg/mLHeart Failure Likely< 50 Years: > 450 pg/mL50-75 Years: > 900 pg/mL>75 Years: > 1800 pg/mL Natriuretic peptide.B prohor nicola N-Terminal [Mass/volume] in Serum or PlasmaOrdered By: Thierno Estrada on 03-03-2025 Natriuretic peptide.B prohormone N-Terminal [Mass/Vol] 1568 pg/mL High <900 [facility] Comment on above: Heart Failure Unlike ly: < 300 pg/mLHeart Failure Likely< 50 Years: > 450 pg/mL50-75 Years: > 900 pg/mL>75 Years: > 1800 pg/mL Neutrophil percentageOrdered By: Thierno Estrada on 03-03-2025 Neutrophils/100 WBC (Bld) 65.2 % 47-70 [facility] No Panel InformationOrdered By: Thierno Estrada on 03-03-2025 Blood Gas Sample Site Not entered [facility] Blood Gas Specimen Type CANDICE [facility] Oxygen Delivery Device Not entered [facility] Nucleated red blood cell per centageOrdered By: Thierno Estrada on 03-03-2025 Nucleated RBC/100 WBC (Bld) [Ratio] 0 % 0-5 [facility] Oxygen (BldV) [Partial press ure]Ordered By: Thierno Estrada on 03-03-2025 Venous Blood Partial Pressure O2 95 mmHg High 25-40 [facility] Phosphoruson 03-03-2025 Phosphate [Mass/Vol] 4.0 mg/dL Normal 2.7-4.5 [facility] Comment on above: Performed By: #### L 501.2300 ####[facility] [address] [place], [place], [id number] Platelet countOrdered By: Arcadio Estrada on 03-03-2025 Platelets (Bld) [#/Vol] 215 10*3/uL 150-450 [facility] RBC Auto (Bld) [#/Vol]Ordere d By: Thierno Estrada on 03-03-2025 RBC (Bld) [#/Vol] 3.93 10*6/uL Low 4.6-6.2 [facility] RESPIRATORY PANEL MOLECULARo n 03-03-2025 RP PANEL ADENOVIRUS Not Detected INFLUENZA A Not Detected INFLUENZA A (SUBTYPE H1) Not Detected INFLUENZA A (SUBTYPE H3) Not Detected INFLUENZA B Not Detected HUMAN METAPHNEUMO Not Detected PARAINFLUENZA 1 Not Detected PARAINFLUENZA 2 Not Detected PARAINFLUENZA 3 Not Detected PARAINFLUENZA 4 Not Detected RHINOVIRUS Not Detected RSV A Not Detected RSV B Not Detected Normal [facility] Comment on above: Performed By: #### M 100.638 ####[facility] [address] [facility]. [place], [place], [id number] Screening total cholesterol/ high density lipoprotein (HDL) cholesterol ratioOrdered By: Thierno Estrada on 03-03-2025 Cholesterol.total/Chol esterol in HDL [Mass ratio] 4.83 {ratio} [facility] Serum globulin measurementOr dered By: Thierno Estrada on 03-03-2025 Globulin (S) [Mass/Vol] 3.1 g/dL 2.2-4.2 [facility] Serum or plasma alanine chu otransferase (ALT) measurementOrdered By: Thierno Estrada on 03-03-2025 ALT [Catalytic activity/Vol] 36 U/L <47 [facility] Comment on above: Hemolysis present, R esults could be affected. Serum or plasma albumin silvia urement (mass/volume)Ordered By: Thierno Estrada on 03-03-2025 Albumin [Mass/Vol] 3.9 g/dL 3.5-5.0 [facility] Serum or plasma albumin/glob ulin mass ratioOrdered By: Thierno Estrada on 03-03-2025 Albumin/Globulin [Mass ratio] 1.2 {ratio} 0.9-2.4 [facility] Serum or plasma alkaline karon sphatase measurementOrdered By: Thierno Estrada on 03-03-2025 ALP [Catalytic activity/Vol] 49 U/L 40-129 [facility] Comment on above: Hemolysis Present, R esults may be affected. Serum or plasma cholesterol in HDL measurement (mass/volume)Ordered By: Thierno Estrada on 03-03-2025 Cholesterol in HDL [Mass/Vol] 29 mg/dL Low >40 [facility] Comment on above: National Cholesterol Education Program (NCEP) guidelines:<40 mg/dL: Low HDL-cholesterol (major risk factor for CHD)>= 60 mg/dL: High HDL-cholesterol (negative risk factor for CHD)HDL-cholesterol is affected by a number of factors, e.g. smoking, exercise, hormones, sex and age. Serum or plasma cholesterol measurement (mass/volume)Ordered By: Thierno Estrada on 03-03-2025 Cholesterol [Mass/Vol] 140 mg/dL <201 [facility] Comment on above: Cholesterol level, D esirable <200 mg/dLBorderline high cholesterol 200-239 mg/dLHigh cholesterol >=240 mg/dLRecommendations of the NCEP Adult Treatment Panel for the following risk-cutoff thresholds for the [place] population. Serum phosphorus measurement Ordered By: Thierno Estrada on 03-03-2025 Phosphorus Level 4.0 mg/dL 2.7-4.5 [facility] Thyroid Stim Hormone (TSH)on 03-03-2025 TSH 3.740 uIU/mL Normal 0.300-4.200 [facility] Comment on above: Performed By: #### L 501.5200, L501.9520, L503.0106 ####[facility] [address] [place], [address] Total proteinOrdered By: Joey Estrada on 03-03-2025 Protein [Mass/Vol] 7.0 g/dL 5.9-8.4 [facility] Triglycerides measurementOrd ered By: Thierno Estrada on 03-03-2025 Triglyceride [Mass/Vol] 115 mg/dL <199 [facility] Comment on above: The drugs N-Acetylcy steine and Metamizole may falsely depress this assay. Normal range: <150 mg/dLBorderline High: 150-199 mg/dLHigh: 200-499 mg/dLVery High: >500 mg/dL Venous Blood Gason 5 Blood Gas Type CANDICE Normal [facility] Comment on above: Performed By: #### L 9000.0810 ####[facility] [address] [place], [address] CO2 [Moles/Vol] 31 mmol/L Normal 23-33 [facility] Comment on above: Performed By: #### L 9000.0810 ####[facility] [address] [place], [address] HCO3 (Bld) [Moles/Vol] 29 mmol/L High 22-26 [facility] Comment on above: Performed By: #### L 9000.0810 ####[facility] [address] [place], [address] O2 Delivery Dev Not entered Normal [facility] Comment on above: Performed By: #### L 9000.0810 ####[facility] [address] [place], [address] SITE Not entered Normal [facility] Comment on above: Performed By: #### L 9000.0810 ####[facility] [address] [place], [address] VBG BE 5 mmol/L High -1.0-3.5 [facility] Comment on above: Performed By: #### L 9000.0810 ####[facility] [address] [place], [address] VBG pCO2 42.5 mmHg Normal 41-51 [facility] Comment on above: Performed By: #### L 9000.0810 ####[facility] [address] [place], [address] VBG pH 7.45 High 7.32-7.42 [facility] Comment on above: Performed By: #### L 9000.0810 ####[facility] [address] [place], [address] VBG PO2 95 mmHg High 25-40 [facility] Comment on above: Performed By: #### L 9000.0810 ####[facility] [address] [place], [address] VBG SO2 98 High 50-70 [facility] Comment on above: Performed By: #### L 9000.0810 ####[facility] [address] [place], [address] Venous Duplex US - Fabio Extre mon 03-03-2025 Venous Duplex US - Fabio Extrem [facility] [address] [place] [address] Venous Duplex US - Fabio Extrem 03/05/25 1049 MR#: [id number] Acct: [id number] Name: JOSÉ MIGUEL YOUNG Sr. Rep #: [id number] : 1965 59 From: Alonso Rizzo MD Attending Dr: Dr. Jostin Arriaza, Status : DIS IN Ordering Dr: Thierno Campos DO Date: 03/03/25 [facility] Sex: M C Admitted: 03/02/25 Reason For Study Reason For Study: Elevated D Dimer RIGHT LEFT GSV is normal. GSV is normal. CFV is compressible, spontaneous, phasic, competent CFV is compressible, spontaneous, phasic, competent, and demonstrates normal augmentation. and demonstrates normal augmentation. FV is compressible, spontaneous, phasic, competent FV is compressible, spontaneous, phasic, competent and demonstrates normal augmentation. and demonstrates normal augmentation. POP V is compressible, spontaneous, phasic, competent POP V is compressible, spontaneous, phasic, competent and demonstrates normal augmentation. and demonstrates normal augmentation. T/P Trunk is compressible. T/P Trunk is compressible. PTV is compressible. PTV is compressible. RT PerV is compressible. LT PerV is compressible. Procedure This is a venous duplex using B-mode, color flow and spectral Doppler. Exam performed portable in patient room. The exam was diagnostic. A preliminary report was called and/or faxed to PCU range aid ADAMA. VL/Venous Duplex US - Fabio Extrem Interpretation Summary Deep veins of the lower extremities are bilaterally patent and compressible segmentally. There is no evidence of deep vein thrombosis on either side. Valvular competence appears intact within the proximal deep venous systems bilaterally. The great saphenous veins appear bilaterally patent and compressible segmentally. Ordering Physician: Thierno Campos Referring Physician: MD Pierce Wells Performed By: Danilo Crystal, T 03/05/252304 Date Alonso Rizzo MD CC: Dr. Jostin Arriaza DO; Dr. Thierno Campos DO; Dr. Pierce Wells MD Date Dictated: 03/05/25 1049 Date Transcribed: 03/05/252304 Prn Physical Therapist: Signed Normal [facility] Venous blood base excess vicki surementOrdered By: Thierno Estrada on 03-03-2025 Base excess Calc (BldV) [Moles/Vol] 5 mmol/L High -1.0-3.5 [facility] Venous blood bicarbonate vicki surementOrdered By: Thierno Estrada on 03-03-2025 HCO3 (Bld) [Moles/Vol] 29 mmol/L High 22-26 [facility] Venous blood oxygen saturati on measurementOrdered By: Thierno Estrada on 03-03-2025 Oxygen saturation in Blood 98 % High 50-70 [facility] Venous blood pH measurementO rdered By: Thierno Estrada on 03-03-2025 pH (BldV) 7.45 [pH] High 7.32-7.42 [facility] Venous blood partial pressur e of carbon dioxide measurementOrdered By: Thierno Estrada on 03-03-2025 CO2 (BldV) [Partial pressure] 42.5 mm[Hg] 41-51 [facility] Venous blood partial pressur e of oxygen measurementOrdered By: Thierno Estrada on 03-03-2025 Oxygen (BldV) [Partial pressure] 95 mm[Hg] High 25-40 [facility] Vitamin B12on 03-03-2025 Cobalamin (Vitamin B12) [Mass/Vol] 260 pg/mL Normal 180-914 [facility] Comment on above: Performed By: #### L 501.5200, L501.9520, L503.0106 ####[facility] [address] [place], [place], [id number] White blood cell (WBC) count Ordered By: Thierno Estrada on 03-03-2025 WBC (Bld) [#/Vol] 4.3 10*3/uL Low 4.4-11.0 [facility] pH (BldV)Ordered By: Thierno akers on 03-03-2025 Venous Blood pH 7.45 High 7.32-7.42 [facility] Arterial patency Wrist arter y --pre arterial punctureOrdered By: Thierno Estrada on 03-02-2025 Sherrell Test Positive [facility] Assessment of wrist artery p atency prior to arterial punctureOrdered By: Thierno Estrada on 03-02-2025 Arterial patency Wrist artery --pre arterial puncture Positive [facility] Base excess Calc (BldV) [Mol es/Vol]Ordered By: Thieron Estrada on 03-02-2025 Blood Gas Base Excess 5 mmol/L High -2-2 [facility] Basic Metabolic Profile (BMP )on 03-02-2025 BUN/CRE 17.6 RATIO Normal 10-20 [facility] Comment on above: Performed By: #### L 100.0100, L500.2500 ####[facility] [address] [place], [address] Calcium [Mass/Vol] 9.2 mg/dL Normal 7.6-11.0 [facility] Comment on above: Performed By: #### L 100.0100, L500.2500 ####[facility] [address] [place], [address] Chloride [Moles/Vol] 103 mmol/L Normal 98-108 [facility] Comment on above: Performed By: #### L 100.0100, L500.2500 ####[facility] [address] [place], [address] CO2 [Moles/Vol] 25.3 mmol/L Normal 21.0-32.0 [facility] Comment on above: Performed By: #### L 100.0100, L500.2500 ####[facility] [address] [place], [address] Creatinine [Mass/Vol] 1.02 mg/dL Normal 0.70-1.20 [facility] Comment on above: Performed By: #### L 100.0100, L500.2500 ####[facility] [address] [place], [address] ECRCL 116.54 ml/min Normal 50-250 [facility] Comment on above: Performed By: #### L 100.0100, L500.2500 ####[facility] [address] [place], [address] GAP 12 Normal 5-15 [facility] Comment on above: Performed By: #### L 100.0100, L500.2500 ####[facility] [address] [place], [address] GFR/1.73 sq M.predicted among non-blacks MDRD (S/P/Bld) [Vol rate/Area] 85 mL/min/{1.73_m2} Normal >60 [facility] Comment on above: Result Comment: mL/m in/1.73m2 CKD-EPI Creatinine Equation (2020) Performed By: #### L 100.0100, L500.2500 ####[facility] [address] [place], [address] Glucose [Mass/Vol] 163 mg/dL High 70-99 [facility] Comment on above: Performed By: #### L 100.0100, L500.2500 ####[facility] [address] [place], [address] Potassium [Moles/Vol] 3.3 mmol/L Normal 3.3-5.1 [facility] Comment on above: Performed By: #### L 100.0100, L500.2500 ####[facility] [address] [place], [address] Sodium [Moles/Vol] 140 mmol/L Normal 133-145 [facility] Comment on above: Performed By: #### L 100.0100, L500.2500 ####[facility] [address] [place], [address] Urea nitrogen [Mass/Vol] 18 mg/dL Normal 4-19 [facility] Comment on above: Performed By: #### L 100.0100, L500.2500 ####[facility] [address] [place], [address] Bilirubin Test strip Ql (U)O rdered By: Thierno Estrada on 03-02-2025 Bilirubin Ql (U) Negative Negative [facility] SH[facility] Positive Normal [facility] Comment on above: Performed By: #### L 9000.0800 ####[facility] [address] [place], [address] Base excess Calc (Bld) [Moles/Vol] 5 mmol/L High -2 to +2 [facility] Comment on above: Performed By: #### L 9000.0800 ####[facility] [address] [place], [address] Blood Gas Type ART Normal [facility] Comment on above: Performed By: #### L 8999.0800 ####[facility] [address] [place], [address] CO2 [Moles/Vol] 32 mmol/L Normal [facility] Comment on above: Performed By: #### L 8999.08 ####[facility] [address] [place], [address] FI02 2.0 Normal [facility] Comment on above: Performed By: #### L 8999.0800 ####[facility] [address] [place], [address] HCO3 (Bld) [Moles/Vol] 30.3 mmol/L High 22-26 [facility] Comment on above: Performed By: #### L 8999.0800 ####[facility] [address] [place], [address] Mode Not entered Normal [facility] Comment on above: Performed By: #### L 8999.08 ####[facility] [address] [place], [address] O2 Delivery Dev Cannula Normal [facility] Comment on above: Performed By: #### L 8999.0800 ####[facility] [address] [place], [address] pCO2 50.5 mmHg High 35-45 [facility] Comment on above: Performed By: #### L 8999.0800 ####[facility] [address] [place], [address] pH (Bld) 7.39 [pH] Normal 7.35-7.45 [facility] Comment on above: Performed By: #### L 8999.0800 ####[facility] [address] [place], [address] PO2 44 mmHG Low 75-100 [facility] Comment on above: Performed By: #### L 9000.0800 ####[facility] [address] [place], [address] SITE L Radial Normal [facility] Comment on above: Performed By: #### L 9000.0800 ####[facility] [address] [place], [address] SO2 79 Low 95-99 [facility] Comment on above: Performed By: #### L 9000.0800 ####[facility] [address] [place], [address] Blood base excess determinat ionOrdered By: Thierno Estrada on 03-02-2025 Base excess Calc (BldV) [Moles/Vol] 5 mmol/L High -- [facility] Blood bicarbonate measuremen tOrdered By: Thierno Estrada on 03-02-2025 Blood Gas Bicarbonate Actual 30.3 mmol/L High [facility] HCO3 (Bld) [Moles/Vol] 30.3 mmol/L High - [facility] CBC W/Diff, Automatedon 02-07 Absolute Lymph 1.09 X10 3/uL Normal 0.83-4.51 [facility] Comment on above: Performed By: #### L 100.0100, L500.2500 ####[facility] [address] [place], [address] Absolute Neut 3.3 X10 3/uL Normal 2.0-7.7 [facility] Comment on above: Performed By: #### L 100.0100, L500.2500 ####[facility] [address] [place], [address] Basophils/100 WBC (Bld) 0.6 % Normal 0-1 [facility] Comment on above: Performed By: #### L 100.0100, L500.2500 ####[facility] [address] [place], [address] Eosinophils/100 WBC (Bld) 2.2 % Normal 0-5 [facility] Comment on above: Performed By: #### L 100.0100, L500.2500 ####[facility] [address] [place], [address] Erythrocyte distribution width (RBC) [Ratio] 14.3 % Normal 11.6-14.6 [facility] Comment on above: Performed By: #### L 100.0100, L500.2500 ####[facility] [address] [place], [address] Hematocrit (Bld) [Volume fraction] 34.6 % Low 40-54 [facility] Comment on above: Performed By: #### L 100.0100, L500.2500 ####[facility] [address] [place], [address] Hemoglobin (Bld) [Mass/Vol] 11.6 g/dL Low 13.0-16.5 [facility] Comment on above: Performed By: #### L 100.0100, L500.2500 ####[facility] [address] [place], [address] IG% 0.400 Normal 0.0-0.9 [facility] Comment on above: Result Comment: IG% - Immature Granulocytes (promyelocytes, myelocytes and metamyelocytes) > 1% indicates that a LEFT SHIFT is Present. Performed By: #### L 100.0100, L500.2500 ####[facility] [address] [place], [address] Lymphocytes/100 WBC (Bld) 21.8 % Normal 19-41 [facility] Comment on above: Performed By: #### L 100.0100, L500.2500 ####[facility] [address] [place], [address] MCH (RBC) [Entitic mass] 29.4 pg Normal 27.0-32.0 [facility] Comment on above: Performed By: #### L 100.0100, L500.2500 ####[facility] [address] [place], [address] MCHC (RBC) [Mass/Vol] 33.5 g/dL Normal 32-36 [facility] Comment on above: Performed By: #### L 100.0100, L500.2500 ####[facility] [address] [place], [address] MCV (RBC) [Entitic vol] 87.6 fL Normal 80-94 [facility] Comment on above: Performed By: #### L 100.0100, L500.2500 ####[facility] [address] [place], [address] Monocytes/100 WBC (Bld) 8.2 % Normal 0-10 [facility] Comment on above: Performed By: #### L 100.0100, L500.2500 ####[facility] [address] [place], [address] Neutrophils/100 WBC (Bld) 66.8 % Normal 47-70 [facility] Comment on above: Performed By: #### L 100.0100, L500.2500 ####[facility] [address] [place], [address] Nucleated RBC (Bld) [#/Vol] 0 10*3/uL Normal 0-5 [facility] Comment on above: Performed By: #### L 100.0100, L500.2500 ####[facility] [address] [place], [address] Platelet mean volume (Bld) [Entitic vol] 10.5 fL Normal 6.2-12.0 [facility] Comment on above: Performed By: #### L 100.0100, L500.2500 ####[facility] [address] [place], [address] Platelets (Bld) [#/Vol] 225 10*3/uL Normal 150-450 [facility] Comment on above: Performed By: #### L 100.0100, L500.2500 ####[facility] [address] [place], [address] RBC (Bld) [#/Vol] 3.95 10*6/uL Low 4.6-6.2 [facility] Comment on above: Performed By: #### L 100.0100, L500.2500 ####[facility] [address] [place], [address] RDW SD 45.5 fl High 35.1-43.9 [facility] Comment on above: Performed By: #### L 100.0100, L500.2500 ####[facility] [address] [place], [address] WBC (Bld) [#/Vol] 5.0 10*3/uL Normal 4.4-11.0 [facility] Comment on above: Performed By: #### L 100.0100, L500.2500 ####[facility] [address] [place], [address] CNOVon 03-02-2025 [facility] -- JOSÉ MIGUEL YOUNG SR. ([id number]) 1965 M Date Time Provider Department 03/02/25 7:00 PM LILIAN MCKENNA [facility] During your visit today, we recorded the following information about you: Pulse 147/minute Lilian Mckenna APRN.GATE TECHNICIAN 03/02/2025 7:00 PM Signed Patient came in with complaints of being sick for a month. Patient says it keeps getting worse. Patient says what used to take him 15 minutes now takes over half hour. Patient says he is extremely short of breath and fatigued. Upon examination patient is tachycardic in the 140s or higher. Patient is also low on oxygen on room air. He is running 85 to 87%. At this time patient is being referred to the emergency room we do not even have x-ray available and patient needs further evaluation. will take him now. I do not want to squad. Allergies As of Date: 03/02/2025 Noted Allergy Reaction EFFEXOR (VENLAFAXINE) 06/17/2021 1 - Mental Status Change Comments: Suicidal thoughts GABAPENTIN 11/13/2017 7 - Swelling Comments: Leg swelling AMLODIPINE 06/08/2016 14 - Other: See Comments Comments: leg swelling LISINOPRIL 02/13/2016 3 - Cough Date Reviewed: 12/29/2024 Reviewed by: Lottie Shah OCCA - Fully Assessed Primary Visit Diagnosis:SOB (shortness of breath) [R06.02] Prescriptions as of 03/02/2025 - benzonatate (TESSALON PERLES) 100 mg capsule Take 1 capsule by mouth three times a day as needed for cough. - predniSONE (DELTASONE) 20 mg tablet Take 2 tablets by mouth once daily. - Atenolol-Chlorthalidone 100-25 mg per tablet Take 1 tablet by mouth once daily. - escitalopram oxalate (LEXAPRO) 10 mg tablet Take 1 tablet by mouth once daily. - minoxidil (LONITEN) 10 mg tablet Take 2 tablets by mouth once daily. - finasteride (PROSCAR) 5 mg tablet Take 1 tablet by mouth once daily. - tamsulosin (FLOMAX) 0.4 mg Take 1 capsule by mouth daily at bedtime. - omeprazole (PRILOSEC) 20 mg capsule Take 1 capsule by mouth daily before breakfast. 1/2 hr before meal. - NIFEdipine ER (PROCARDIA XL) 30 mg 24 hr tablet Take 1 tablet by mouth once daily. - ibuprofen (MOTRIN) 800 mg tablet TAKE ONE TABLET BY MOUTH TWICE DAILY WITH MEALS NEEDED - guanFACINE (TENEX) 1 mg tablet Take 1 tablet by mouth daily at bedtime. - losartan (COZAAR) 100 mg tablet Take 1 tablet by mouth once daily. - aspirin 325 mg tablet Take 325 mg by mouth once daily. Problem List As Of Date 03/02/2025 Noted Resolved Essential hypertension [I10] Tobacco use disorder [F17.200] 01/01/2011 06/29/2017 Cutaneous skin tags [L91.8] 06/01/2011 Sebaceous cyst [L72.3] 06/01/2011 Lipoma of unspecified site [D17.9] 06/22/2011 Diuretic-induced hypokalemia [E87.6, T50.2X5A] 02/22/2014 Sciatica [M54.30] 03/05/2014 Lumbago [M54.50] 03/05/2014 Digital mucous cyst [M67.449] 01/13/2016 Anxiety [F41.9] 07/18/2017 Morbid (severe) obesity due to excess calories *01/21/2018 Encounter Status:Closed by LILIAN MCKENNA on 03/02/25 Normal [facility] CRPon 03-02-2025 C-REACTIVE PROT 7.71 mg/L High 0.0-3.0 [facility] Comment on above: Performed By: #### L 501.6710, L501.2300 ####[facility] [address] [facility] [place], [address] CRP [Mass/Vol]Ordered By: Arcadio Estrada on 03-02-2025 C-Reactive Protein Extended Range 7.71 mg/L High 0.0-3.0 [facility] CTA Chest W/WO Contraston CTA Chest W/WO Contrast [facility] Services [address] [place] [address] CTA Chest W/WO Contrast MR#: [id number] Acct: [id number] Name: JOSÉ MIGUEL YOUNGIS Sr. Rep #: [id number] : 1965 M 59 From: Poncho Garza MD PCP: Dr. Pierce Wells MD Status: REG ER Study: CTA Chest W/WO Contrast Date of Exam: 03/02/25 Exam# [id number] Ordering Dr: Tyron Valiente MD PROCEDURE: CTA CHEST W/WO CONTRAST 03/02/2025 REASON FOR EXAM: HYPOXIA TECHNIQUE: CTA imaging of the chest with intravenous contrast. Multiplanar and multisequence images were obtained. 3D, 3D post processing, 3D reconstructions, Maximum intensity projection (MIPs) Volume rendering and Shaded surface rendering was provided. One or more dose reduction techniques were used (e.g., Automated exposure control, adjustment of the mA and/or kV according to patient size, use of iterative reconstruction technique). FINDINGS: Thoracic Aorta: Atherosclerotic plaques. No aneurysm or dissection. Heart: Cardiomegaly. Small pericardial effusion. Pulmonary Vessels: No filling defect to suggest pulmonary embolism. Hardware: None Lymph nodes: Unremarkable. Lungs and Airways: No pneumonia, atelectasis, nodule, or mass. Pleura: No pleural effusion. Upper Abdomen: Unremarkable. Bones: Degenerative changes of the thoracic spine. CT/CTA Chest W/WO Contrast IMPRESSION: No CT evidence of pulmonary embolism. Cardiomegaly with a small pericardial effusion. Reading Location: [facility] CC: Dr. Tyron Valiente MD; Dr. Pierce Wells MD Prn Physical Therapist: Signed Normal [facility] Chest 1 View (Portable)on Chest 1 View (Portable) [facility] Imaging Services [address] [place] [address] Chest 1 View (Portable) MR#: [id number] Acct: [id number] Name: JOSÉ MIGUEL YOUNG . Rep #: [id number] : 1965 M 59 From: Poncho Garza MD PCP: Dr. Pierce Wells MD Status: PRE ER Study: Chest 1 View (Portable) Date of Exam: 03/02/25 Exam# [id number] Ordering Dr: Tyron Valiente MD PROCEDURE: CHEST 1 VIEW (PORTABLE) 03/02/2025 REASON FOR EXAM: COUGH TECHNIQUE: Frontal view of the chest. FINDINGS: Hardware: None Heart: Heart size is moderately enlarged. Lungs: The lungs are clear. Bones: The bones are unremarkable. Other: RAD/Chest 1 View (Portable) IMPRESSION: No Acute Findings. Reading Location: [facility] CC: Dr. Tyron Valiente MD; Dr. Pierce Wells MD Prn Physical Therapist: Signed Normal [facility] D-Dimer Quantitative (DVT/PE )on 03-02-2025 D-DIMER QUANT 0.53 FEU/ug/m Invalid Interpretation Code 0.27-0.49 [facility] Comment on above: Result Comment: D-Di leticia ELEVATED (>0.49): Additional studies and clinical assessments are indicated to conclude diagnosis of: Deep Vein Thrombosis (DVT) or Pulmonary Embolism (PE) [facility] 03/02/25 2349 Anic[address] R Francisco. RESULTS READ BACK BY SAME. Performed By: #### L 300.8000, L101.9900 ####[facility] [address] [facility] [place], [address] D-dimer measurement for deep venous thrombosisOrdered By: Thierno Estrada on 03-02-2025 D-Dimer Quantitative (PE/DVT) 0.53 FEU/ug/m High 0.27-0.49 [facility] Comment on above: D-Dimer ELEVATED (>0 .49): Additional studies and clinicalassessments are indicated to conclude diagnosis of:Deep Vein Thrombosis (DVT) or Pulmonary Embolism (PE)CRITICAL VALUE CALLED TO [facility]K28/25/25 2349 An[address] R Francisco.RESULTS READ BACK BY SAME. Determination of fraction of inspired oxygenOrdered By: Thierno Estrada on 03-02-2025 Blood Gas Oxygen Percent 2.0 [facility] Echo Complete W/ Contraston 03-02-2025 Echo Complete W/ Contrast [facility] [address] [place] [address] Echo Complete W/ Contrast 03/03/25 0806 MR#: [id number] Acct: [id number] Name: MEMEYULISSAJAYCEJOSÉ MIGUEL . Rep #: [id number] : 1965 59 From: Sagrario Casanova MD Attending Dr: Dr. Pierce Florian DO Status: A DM IN Ordering Dr: Thierno Campos DO Date: 03/02/25 [facility] Sex[facility] M C Admitted: 03/02/25 Reason For Study Reason For Study: CHF Procedure This was a 2D Doppler, Color Flow transthoracic echocardiogram. The study was technically difficult. Contrast injection was performed. Exam performed portable in patient room. Left Ventricle Normal LV size. Mild concentric left ventricular hypertrophy. The left ventricular ejection fraction is 70 %. Stage 1 diastolic dysfunction. Right Ventricle Normal right ventricle. Atria There is severe biatrial dilatation. Mitral Valve Trivial mitral valve insufficiency. Tricuspid Valve Trivial tricuspid valve insufficiency. Unable to estimate RV systolic pressure due to insufficient tricuspid regurgitant envelope. Aortic Valve Trisinus/trileaflet aortic valve. Pulmonic Valve The pulmonic valve is not well visualized. Great Vessels Normal sized aortic root. Pericardium/Pleural Trivial to small pericardial effusion. Medication Diluted definity 2ml given slow IV push to enhance endocardial definition. MMode/2D Measurements Calculations LVIDd: 5.5 cm IVSd: 1.2 cm Ao root diam: 3.9 cm LVIDs: 3.4 cm LVPWd: 1.2 cm FS: 38.7 % LAV(MOD-bp): 84.5 ml LVAd ap4: 28.0 cm2 SV(MOD-sp4): 57.6 ml LAV(MOD-bp) Indexed: 32.4 ml/m2 LVLd ap4: 8.1 cm SI(MOD-sp4): 22.1 ml/m2 LAV(MOD-sp2): 71.1 ml EDV(MOD-sp4): 83.1 ml LAV(MOD-sp4): 95.5 ml EDV(sp4-el): 82.1 ml LVAs ap4: 13.7 cm2 LVLs ap4: 6.3 cm ESV(MOD-sp4): 25.5 ml ESV(sp4-el): 25.4 ml EF(MOD-sp4): 69.3 % EF(sp4-el): 69.0 % SV(sp4-el): 56.6 ml LA A4 area: 28.7 cm2 LA dimension(2D): 5.0 cm Doppler Measurements Calculations MV E max lexii: 131.3 cm/sec Lat Peak E' Lexii: 10.5 cm/sec Med Peak E' Lexii: 8.2 cm/sec E/E' lat: 12.6 E/E' med: 16.0 MV V2 max: 162.5 cm/sec Ao V2 max: 169.3 cm/sec LV V1 max: 134.2 cm/sec MV max P.6 mmHg Ao max P.5 mmHg LV V1 max P.2 mmHg MV V2 mean: 81.9 cm/sec Ao V2 mean: 113.6 cm/sec LV V1 mean P.6 mmHg MV mean P.4 mmHg Ao mean P.0 mmHg LV V1 mean: 87.5 cm/sec MV V2 VTI: 38.5 cm Ao V2 VTI: 34.2 cm LV V1 VTI: 26.7 cm AV (velocity ratio): 0.78 PA V2 max: 121.4 cm/sec ECHO/Echo Complete W/ Contrast Interpretation Summary The left ventricular ejection fraction is 70 %. Stage 1 diastolic dysfunction. There is severe biatrial dilatation. Trivial to small pericardial effusion. The study was technically difficult. Ordering Physician: Thierno Campos Performed By: Jhonny Martines RCS 03/03/25 1125 Date Sagrario Casanova MD CC: Dr. Thierno Campos DO; Dr. Pierce Wells MD; Dr. Pierce Florian DO Date Dictated: 03/03/25 0806 Date Transcribed: 03/03/25 112 Prn Physical Therapist: Signed Normal [facility] Emergency Department Summary on 03-02-2025 Emergency Department Summary [facility] Medical Records Department [address] [place] [address] Emergency Department Summary 03/02/25 MR#: [id number] Acct: [id number] Name: JOSÉ MIGUEL YOUNG Sr. Rep #: [id number] : 1965 59 From: Tyron Valiente MD PCP: Dr. Pierce Wells MD Status:REG ER Location: ED HPI History of Present Illness Chief Complaint: Shortness of Breath Narrative Narrative: 59-year-old male past medical history of hypertension presents with shortness of breath that has had for quite some time. He relates history that a month or longer ago he had relatives that had infl uenza A and 1 had influenza B. He went and saw his primary care provider and was told that he had influenza as well although he was never tested. He continued to have shortness of breath. He denies any weight gain or leg swelling. 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 He does not wear oxygen at home. He states that he was not improving so he had been prescribed amoxicillin and finished that a few weeks ago. He got rid of the cough a few weeks ago as well. Over the last week and a half he has had increasing shortness of breath and dyspnea on exertion. He denies any chest pain. He states he feels short of breath and wheezy. No history of congestive heart failure. [facility] Medical History Shoulder pain HTN (hypertension) Home Medications ???Medication ???Instructions ???Recorded ???Last Taken ???Type aspirin 325 mg tablet 325 mg PO DAILY@0800 [facility] 11/19/13 1 Day Ago History 03/11/20 atenolol 100 mg-chlorthalidone 25 1 tab PO DAILY BLOOD PRESSURE 10/21 1 Day Ago History mg tablet 03/11/20 potassium chloride 10 mEq 10 meq PO DAILY supplement 5 1 Day Ago History tablet,extended release(part/cryst) 03/11/20 guanfacine 1 mg tablet 1 tab PO DAILY BLOOD PRESSURE 30 0 05/09/18 1 Day Ago History days ##30 03/11/20 clonazepam 0.5 mg tablet 0.5 mg PO QHS anxiety 01/29/19 1 D ay Ago History 03/11/20 escitalopram oxalate 20 mg tablet 20 mg PO DAILY depression 9 1 Day Ago History 03/11/20 minoxidil 10 mg tablet 20 mg PO DAILY HAIR GROWTH 9 1 Day Ago History 03/11/20 orphenadrine citrate 100 mg 100 mg PO BID PRN Muscle Spasm #14 01/23/20 1 Day Ago Rx tablet,extended release tabs 03/11/20 Allergy/AdvReac Type Severity Reaction Status Date / Time No Known Allergies Allergy Verified 03/02/25 19:10 Social History Smoking Status: Never smoker alcohol intake: never ROS ROS ED ROS Narrative Constitutional: No fever, no chills. HEENT: No sore throat. No neck pain. Cardiovascular: No chest pain. No palpitations. No pedal edema. Respiratory: No cough, positive dyspnea on exertion and shortness of breath. Abdominal: No abdominal pain. No nausea. No vomiting. Musculoskeletal: No myalgias. No arthralgias. Neurologic: No headaches. No dizziness. No lightheadedness. Skin: No rash. Positive redness to abdomen. EXAM Physical Exam Narrative Exam Narrative: Afebrile. Vital signs noted. Nontoxic-appearing. Cardiovascular examination reveals a regular rate and rhythm. Decreased breath sounds bilateral bases. No overt wheezing or stridor. Abdomen is soft, nontender, and obese. There is mild redness diffusely throughout his abdomen. Neurological examination is nonfocal and lateralizing. Chronic lymphedema bilateral lower extremities. Const Vital Signs: 03/02/25 19:10 03/02/25 19:10 03/02/25 20:01 Temperature 97 F L Temperature Source Temporal Pulse Rate 87 Respiratory Rate 15 Respiratory Effort Normal Non-Labored Respiratory Pattern Blood Pressure 164/88 H Blood Pressure Mean 113 Pulse Ox 85 96 Oxygen Delivery Method Room Air Nasal Cannula Nasal Cannula Oxygen Flow Rate (L/min) 2 2 03/02/25 20:22 03/02/25 20:22 03/02/25 20:35 Temperature 97.8 F Temperature Source Oral Pulse Rate 77 Respiratory Rate 17 Respiratory Effort Respiratory Pattern Blood Pressure 114/76 Blood Pressure Mean 88 Pulse Ox 94 Oxygen Delivery Method Nasal Cannula Nasal Cannula Nasal Cannula Oxygen Flow Rate (L/min) 2 2 03/02/25 21:07 03/02/25 21:09 03/02/25 21:45 Temperature 97.8 F Temperature Source Oral Pulse Rate 82 90 93 Respiratory Rate 22 H 18 18 Respiratory Effort Respiratory Pattern Tachypnea Blood Pressure 121/79 H 130/88 H Blood Pressure Mean 93 102 Pulse Ox 95 94 Oxygen Delivery Method Nasal Cannula Nasal Cannula Oxygen Flow Rate (L/min) 2 2 MDM MDM MDM Narrative Medical decision making narrative: Differential diagnosis includes but not limited to COPD versus CHF versus pneumonia versus pulmon (more content not included)... Normal [facility] Epithelial cells.squamous LM Ql (Urine sed)Ordered By: Thierno Estrada on 03-02-2025 Epithelial cells.squamous LM.HPF (Urine sed) [#/Area] 0 /[HPF] 0-5 [facility] Erythrocyte Sed Rateon 03-02 SED RATE 9 mm/hr Normal 0-20 [facility] Comment on above: Performed By: #### L 300.8000, L101.9900 ####[facility] [address] [facility] [place], [address] Erythrocyte sedimentation ra teOrdered By: Thierno Estrada on 03-02-2025 ESR (Bld) [Velocity] 9 mm/h 0-20 [facility] Extremity Lower WITH Contras ton 03-02-2025 Extremity Lower WITH Contrast [facility] Imaging Services [address] [place], [place] [id number] Extremity Lower WITH Contrast MR#: [id number] Acct: [id number] Name: JOSÉ MIGUEL YOUNG . Rep #: [id number] : 1965 M 59 From: Poncho Garza MD PCP: Dr. Pierce Wells MD Status: ADM IN Study: Extremity Lower WITH Contrast Date of Exam: Exam# [id number] Ordering Dr: Tyron Valiente MD PROCEDURE: EXTREMITY LOWER WITH CONTRAST 03/02/2025 REASON FOR EXAM: ULCER TECHNIQUE: Axial CT images of the left foot obtained with intravenous contrast. Coronal and Sagittal reconstruction series were provided. One or more dose reduction techniques were used (e.g., Automated exposure control, adjustment of the mA and/or kV according to patient size, use of iterative reconstruction technique). FINDINGS: Bones: No acute fracture or dislocation. No bony destruction to suggest osteomyelitis. Small plantar and posterior calcaneal enthesophytes. Joints: Normal alignment of the joints in the foot. Soft Tissues: Dorsal soft tissue swelling. No loculated fluid collection to suggest abscess. CT/Extremity Lower WITH Contrast IMPRESSION: Dorsal soft tissue swelling but no abscess or osteomyelitis. Reading Location: [facility] CC: Dr. Tyron Valiente MD; Dr. Pierce Wells MD Prn Physical Therapist: Signed Normal [facility] Glucose Ql (U)Ordered By: Arcadio Estrada on 03-02-2025 Urine Glucose (UA) Normal mg/dl Normal [facility] H AND P Exam - [facility]iston 03-02-2025 H&P Exam - Hospitalist [facility] Medical Records Department [address] [place] [address] H P Exam - Hospitalist 03/02/25 2201 MR#: [id number] Acct: [id number] Name: JOSÉ MIGUEL YOUNG . Rep #: [id number] : 1965 59 From: Thierno Campos DO PCP: Dr. Pierce Wells MD Status:ADM IN Location: [place] [address] HPI - General General Date of Admission: 03/02/25 Date of Service: 03/02/25 Chief Complaint: SOB and Wheezing. 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 Mr. Young reports his symptoms began approximately 1 month prior to admission after several close relatives were diagnosed with Influenza A/B. He was subsequently evaluated by his PCP and he was then diagnosed with Influenza - even though he claims he was not formally tested - culminating in him being given a prescription for amoxicillin which he finished a few weeks ago with resolution of his cough, but not his SOB. Unfortunately, over the past 10 days he has continued to have CHINO that has now progressed to SOB at rest with wheezing so he decided to come in for further evaluation and treatment. 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 He admits to redness of the skin of his abdomen with intense itching causing him to scratch frequently which hs made it worse. He denies associated fever, chills, nausea, vomiting, diarrhea, constipation, abdominal pain, chest pain, headache, SOB, known personal history of CHF but he does admit to acute worsening of his chronic LE lymphedema. In the ER he was noted to have a CTA of the chest with IV contrast that revealed no evidence of pulmonary embolism but did show Cardiomegaly with Small Pericardial Effusion with a corresponding elevated NT pro-BNP II of 1,559 pg/mL present on admission consistent with suspected new-onset AE of CHF of uncertain type complicated by clinical evidence of Acute Respiratory Insufficiency in addition to laboratory evidence of Hyperglycemia of 163 mg/dL present on admission suspicious for DM-2 and he was then admitted to the PCU for ongoing care for a stay that is expected to extend beyond 2 midnights. REPLACED BY [facility] Medical History Shoulder pain HTN (hypertension) Home Medications ???Medication ???Instructions ???Recorded ???Last Taken ???Type aspirin 325 mg tablet 325 mg PO DAILY@0800 [facility] 11/19/13 03/02/25 History atenolol 100 mg-chlorthalidone 25 1 tab PO DAILY BLOOD PRESSURE 10/2103/02/25 History mg tablet guanfacine 1 mg tablet 1 tablet PO QPM BLOOD PRESSURE 30 05/09/18 03/01/25 History days ##30 escitalopram oxalate 20 mg tablet 20 mg PO DAILY depression 9 03/02/25 History minoxidil 10 mg tablet 20 mg PO DAILY HAIR GROWTH 9 03/02/25 History finasteride 5 mg tablet 5 mg PO QPM 03/02/25 03/01/25 Hist ory ibuprofen 800 mg tablet 800 mg PO BID PRN PRN fever or nakia n 03/02/25 03/01/25 History losartan 100 mg tablet 100 mg PO DAILY 03/02/25 03/02/25 History nifedipine 30 mg tablet,extended 30 mg PO DAILY 03/02/25 03/02/25 H istory release 24 hr omeprazole 20 mg capsule,delayed 20 mg PO DAILY 03/02/25 03/02/25 H istory release tamsulosin 0.4 mg capsule 0.4 mg PO QHS 03/02/25 03/01/25 Hi story Allergy/AdvReac Type Severity Reaction Status Date / Time No Known Allergies Allergy Verified 03/02/25 19:10 Social History Smoking Status: Never smoker alcohol intake: never ROS ROS Narrative Review of Systems: Constitutional: Patient denies fever or chills. Eyes: Patient denies changes in vision or discharge from eyes. ENT: Patient denies runny nose, sore throat or ear pain. Resp: Patient admits to CHINO that progressed to SOB at rest with wheezing but he denies cough. CV: Patient denies chest pain, palpitations, heart racing or LE edema. GI: Patient denies abdominal pain, nausea, vomiting, diarrhea or constipation. : Patient denies dysuria, hematuria or urinary frequency. MSK: Patient denies arthralgias or myalgias. Skin: Patient admits to redness on his abdomen but he denies wounds or jaundice. Psych: Patient denies s (more content not included)... Normal [facility] Hemoglobin A1con 03-02-2025 HbA1c (Bld) [Mass fraction] 5.6 % Normal <=5.6 [facility] Comment on above: Result Comment: Norm al < 5.7 % Prediabetic 5.7 - 6.4 % Diabetic >or= 6.5 % Please note range changes. Performed By: #### L 506.0200, L501.9985 ####[facility] [address] [place], [place], [id number] Hemoglobin A1c percentageOrd ered By: Thierno Estrada on 03-02-2025 HbA1c (Bld) [Mass fraction] 5.6 % <5.7 [facility] Comment on above: Normal < 5.7 % Predi abetic 5.7 - 6.4 % Diabetic >or= 6.5 % Please note range changes. Ketones Test strip Ql (U)Ord ered By: Thierno Estrada on 03-02-2025 Ketones Ql (U) Negative Negative [facility] L503.7505on 03-02-2025 Natriuretic peptide B (Bld) [Mass/Vol] 1559 pg/mL High <=900 [facility] Comment on above: Result Comment: Hear t Failure Unlikely: < 300 pg/mL Heart Failure Likely < 50 Years: > 450 pg/mL 50-75 Years: > 900 pg/mL >75 Years: > 1800 pg/mL Performed By: #### L 503.7505 ####[facility] [address] [place], [place], [id number] Magnesium (Unsp spec) [Mass/ Vol]Ordered By: Thierno Estrada on 03-02-2025 Magnesium [Mass/Vol] 1.8 mg/dL 1.5-2.2 [facility] Magnesium measurement (mass/ volume)Ordered By: Thierno Estrada on 03-02-2025 Magnesium (Unsp spec) [Mass/Vol] 1.8 mg/dL 1.5-2.2 [facility] Measurement, pHOrdered By: Mao Estrada on 03-02-2025 pH (Unsp spec) 7.39 [pH] 7.35-7.45 [facility] Microscopic analysis of urin e for red blood cells (RBC)Ordered By: Thierno Estrada on 03-02-2025 Microscopic analysis of urine for red blood cells (RBC) 0 SEEN /hpf 0-5 [facility] Urine RBC 0 SEEN /hpf 0-5 [facility] Mucus LM Ql (Urine sed)Order ed By: Thierno Estrada on 03-02-2025 Mucus Ql (Urine sed) 0 SEEN /hpf [facility] Nitrite Test strip Ql (U)Ord ered By: Thierno Estrada on 03-02-2025 Nitrite Ql (U) Negative Negative [facility] No Panel InformationOrdered By: Thierno Estrada on 03-02-2025 Blood Gas Vent Mode Not entered [facility] Oxygen saturation measuremen tOrdered By: Thierno Estrada on 03-02-2025 Blood Gas Oxygen Saturation 79 % Low 95-99 [facility] Partial pressure of carbon d ioxide measurementOrdered By: Thierno Estrada on 03-02-2025 Arterial Blood Partial Pressure CO2 50.5 mmHg High 35-45 [facility] Partial pressure of oxygen m easurementOrdered By: Thierno Estrada on 03-02-2025 Arterial Blood Partial Pressure O2 44 mmHG Low 75-100 [facility] Phosphoruson 03-02-2025 Phosphate [Mass/Vol] 2.9 mg/dL Normal 2.7-4.5 [facility] Comment on above: Performed By: #### L 501.6710, L501.2300 ####[facility] [address] [place], [place], [id number] Protein Test strip Ql (U)Ord ered By: Thierno Estrada on 03-02-2025 Protein Ql (U) Negative Negative [facility] Respiratory pathogens DNA an d RNA panel PATRICIA+probe (Resp)Ordered By: Thierno Estrada on 03-02-2025 Respiratory Panel (PCR) [facility] Respiratory pathogens detect ion panel by molecular detection methodOrdered By: Thierno Estrada on 03-02-2025 Respiratory pathogens DNA and RNA panel PATRICIA+probe (Resp) [facility] Serum or plasma C reactive p rotein measurement (mass/volume)Ordered By: Thierno Estrada on 03-02-2025 CRP [Mass/Vol] 7.71 mg/L High 0.0-3.0 [facility] Squamous epithelial cells de tection in urine sediment by light microscopyOrdered By: Thierno Estrada on 03-02-2025 Epithelial cells.squamous LM Ql (Urine sed) 0 SEEN /hpf 0-5 [facility] TSH DL <= 0.005 mIU/L QnOrde red By: Thierno Estrada on 03-02-2025 Thyroid Stimulating Hormone (TSH) 3.740 uIU/mL 0.300-4.200 [facility] TSH Qn 3.740 uIU/mL 0.300-4.200 [facility] Total carbon dioxide measure mentOrdered By: Thierno Estrada on 03-02-2025 Blood Gas Total CO2 32 mmol/L [facility] CO2 [Moles/Vol] 32 mmol/L [facility] Urinalysis, Completeon 03-02 BACTERIA 0 SEEN Normal None Seen [facility] Comment on above: Order Comment: CLEAN CATCH Performed By: #### L 400.0001 ####[facility] [address] [place], [address] EPI,SQUAMOUS 0 SEEN Normal 0-5 [facility] Comment on above: Order Comment: CLEAN CATCH Performed By: #### L 400.0001 ####[facility] [address] [place], [address] Mucus Ql (Urine sed) 0 SEEN Normal [facility] Comment on above: Order Comment: CLEAN CATCH Performed By: #### L 400.0001 ####[facility] [address] [place], [address] RBC 0 SEEN Normal 0-5 [facility] Comment on above: Order Comment: CLEAN CATCH Performed By: #### L 400.0001 ####[facility] [address] [place], [address] WBC 0 SEEN Normal 0-5 [facility] Comment on above: Order Comment: CLEAN CATCH Performed By: #### L [id number] ####[facility] [address] [place], [address] Urine blood detectionOrdered By: Thierno Estrada on 03-02-2025 Urine Occult Blood Negative Negative [facility] Urine clarityOrdered By: Joey Estrada on 03-02-2025 Clarity (U) Clear Clear [facility] Urine color determinationOrd ered By: Thierno Estrada on 03-02-2025 Color (U) Yellow Yellow [facility] Urine glucose detectionOrder ed By: Thierno Estrada on 03-02-2025 Glucose Ql (U) Normal mg/dl Normal [facility] Urine leukocyte esterase det ection by dipstickOrdered By: Thierno Estrada on 03-02-2025 Leukocyte esterase Test strip Ql (U) Negative Negative [facility] Urine pHOrdered By: Thierno dahl on 03-02-2025 pH (U) 6.0 [pH] 5.0 - 8.0 [facility] Urine sediment bacteria coun t by microscopy (number/high power field)Ordered By: Thierno Estrada on 03-02-2025 Bacteria LM.HPF (Urine sed) [#/Area] 0 /[HPF] None Seen [facility] Urine specific gravity measu rementOrdered By: Thierno Estrada on 03-02-2025 Specific gravity (U) [Rel density] 1.010 1.002-1.030 [facility] Urine urobilinogen measureme ntOrdered By: Thierno Estrada on 03-02-2025 Urobilinogen Ql (U) Normal mg/dl Normal [facility] Urobilinogen Ql (U)Ordered B y: Thierno Estrada on 03-02-2025 Urine Urobilinogen Normal mg/dl Normal [facility] Vitamin B12 ser/plasOrdered By: Thierno Estrada on 03-02-2025 Cobalamin (Vitamin B12) [Mass/Vol] 260 pg/mL 180-914 [facility] White blood cell countOrdere d By: Thierno Estrada on 03-02-2025 Urine WBC 0 SEEN /hpf 0-5 [facility] White blood cell count 0 SEEN /hpf 0-5 [facility] pH (Unsp spec)Ordered By: Arcadio Estrada on 03-02-2025 Blood Gas pH 7.39 7.35-7.45 [facility]20[facility] -- JOSÉ MIGUEL YOUNG SR. ([id number]) 1965 M Date Time Provider Department 01/01/25 [facility] During your visit today, we recorded the following information about you: Braeden Valdes RN 01/01/2025 9:31 AM Signed Spouse calls to report that patient needs a letter stating that he is able to return to work today 01/01/2025. Current letter only says he was treated for influenza and patients employer needs one stating he is able to return. Blanca requests call back at [phone] when ready for worm picker. Aware provider is not in until later today. KEVIN Rhoades Krystle, RN 01/01/2025 9:34 AM Signed Spouse calls back to report patient needs return to work letter to be for tomorrow 01/02/2025. KEVIN Rhoades Jesse, APRN.MELIA 01/01/2025 10:13 AM Signed Letter created and signed. Armani Leong APRN.Qing Mcnally LPN 01/01/2025 10:32 AM Signed Spouse notified letter ready for pickup at [employer]. Allergies As of Date: 01/01/2025 Noted Allergy Reaction EFFEXOR (VENLAFAXINE) 06/17/2021 1 - Mental Status Change Comments: Suicidal thoughts GABAPENTIN 11/13/2017 7 - Swelling Comments: Leg swelling AMLODIPINE 06/08/2016 14 - Other: See Comments Comments: leg swelling LISINOPRIL 02/13/2016 3 - Cough Date Reviewed: 12/29/2024 Reviewed by: Lottie Shah OCCA - Fully Assessed Reason for Visit: Letter [264] Prescriptions as of 01/01/2025 - benzonatate (TESSALON PERLES) 100 mg capsule Take 1 capsule by mouth three times a day as needed for cough. - oseltamivir (TAMIFLU) 75 mg capsule Take 1 capsule by mouth two times a day for 5 days. - predniSONE (DELTASONE) 20 mg tablet Take 2 tablets by mouth once daily. - Atenolol-Chlorthalidone 100-25 mg per tablet Take 1 tablet by mouth once daily. - escitalopram oxalate (LEXAPRO) 10 mg tablet Take 1 tablet by mouth once daily. - minoxidil (LONITEN) 10 mg tablet Take 2 tablets by mouth once daily. - finasteride (PROSCAR) 5 mg tablet Take 1 tablet by mouth once daily. - tamsulosin (FLOMAX) 0.4 mg Take 1 capsule by mouth daily at bedtime. - omeprazole (PRILOSEC) 20 mg capsule Take 1 capsule by mouth daily before breakfast. 1/2 hr before meal. - NIFEdipine ER (PROCARDIA XL) 30 mg 24 hr tablet Take 1 tablet by mouth once daily. - ibuprofen (MOTRIN) 800 mg tablet TAKE ONE TABLET BY MOUTH TWICE DAILY WITH MEALS NEEDED - guanFACINE (TENEX) 1 mg tablet Take 1 tablet by mouth daily at bedtime. - losartan (COZAAR) 100 mg tablet Take 1 tablet by mouth once daily. - aspirin 325 mg tablet Take 325 mg by mouth once daily. Problem List As Of Date 01/01/2025 Noted Resolved Essential hypertension [I10] Tobacco use disorder [F17.200] 01/01/2011 06/29/2017 Cutaneous skin tags [L91.8] 06/01/2011 Sebaceous cyst [L72.3] 06/01/2011 Lipoma of unspecified site [D17.9] 06/22/2011 Diuretic-induced hypokalemia [E87.6, T50.2X5A] 02/22/2014 Sciatica [M54.30] 03/05/2014 Lumbago [M54.50] 03/05/2014 Digital mucous cyst [M67.449] 01/13/2016 Anxiety [F41.9] 07/18/2017 Morbid (severe) obesity due to excess calories *01/21/2018 Letter Text Encounter Status:Closed by QING SAAB on 01/01/25 [facility] CNOVon 12-29-2024 CNOV Office Visit ([facility] ) -- JOSÉ MIGUEL YOUNG SR. ([id number]) 1965 M Date Time Provider Department 12/29/24 4:00 PM [facility] During your visit today, we recorded the following information about you: Temperature Pulse Respiration Blood pressure 98 degrees 82/minute 24/minute 138/92 Weight 161.3 kg Pierce Wells MD 12/29/2024 5:14 PM Signed Chief Complaint Cough HPI José Miguel Young Sr. is a 59 year old male who presents here today for a same day visit. Pt here today with c/o a cough x 2 days. Acute onset of cough, body aches. Other famly members have been illand treated for influenza. Posite wheezing.. Past medical history, appointments, medications, allergies reviewed. Previous Medical History PAST MEDICAL HISTORY Diagnosis Date Unspecified essential hypertension Previous Surgical History PAST SURGICAL HISTORY Procedure Laterality Date PAST SURGICAL HISTORY OF removal cyst upper back Family History FAMILY HISTORY Problem Relation Age of Onset Diabetes Mother Hypertension Mother Stroke Father other (Lung cancer) Father Diabetes Brother Patient Allergies ALLERGIES Allergen Reactions Effexor [Venlafaxin* Mental Status Change Suicidal thoughts Gabapentin Swelling Leg swelling Amlodipine Other: See Comments leg swelling Lisinopril Cough Current Medications Current Outpatient Medications on File Prior to Visit Medication Sig Atenolol-Chlorthalidone 100-25 mg per tablet Take 1 tablet by mouth once daily. escitalopram oxalate (LEXAPRO) 10 mg tablet Take 1 tablet by mouth once daily. minoxidil (LONITEN) 10 mg tablet Take 2 tablets by mouth once daily. finasteride (PROSCAR) 5 mg tablet Take 1 tablet by mouth once daily. tamsulosin (FLOMAX) 0.4 mg Take 1 capsule by mouth daily at bedtime. omeprazole (PRILOSEC) 20 mg capsule Take 1 capsule by mouth daily before breakfast. 1/2 hr before meal. NIFEdipine ER (PROCARDIA XL) 30 mg 24 hr tablet Take 1 tablet by mouth once daily. ibuprofen (MOTRIN) 800 mg tablet TAKE ONE TABLET BY MOUTH TWICE DAILY WITH MEALS NEEDED guanFACINE (TENEX) 1 mg tablet Take 1 tablet by mouth daily at bedtime. losartan (COZAAR) 100 mg tablet Take 1 tablet by mouth once daily. benzonatate (TESSALON PERLES) 100 mg capsule Take 1 capsule by mouth three times a day as needed for cough. aspirin 325 mg tablet Take 325 mg by mouth once daily. No current facility-administered medications on file prior to visit. Social History Social History Tobacco Use Smoking status: Never Smokeless tobacco: Former Types: Chew Quit date: 10/19/2010 Tobacco comments: Quit chewing 5years Substance Use Topics Alcohol use: No Drug use: No EXAM: There were no vitals taken for this visit. General Appearance: Well appearing, alert, in no acute distress, well-hydrated, well nourished. and Morbidly obese. Lungs: mild difufse rhonchi. Heart: RRR without murmur, gallop, or rubs. No ectopy. Health Maintenance List Depression Screening Never done BP Controlled (<130/80) Never done Shingrix Vaccine(1 of 2) Never done Pneumococcal Vaccine: 50+(2 of 2 - PCV) due on 08/26/2017 Annual PCP Team Chronic Disease Visit due on 09/12/2025 Diabetes Screening due on 09/12/2027 Colorectal Cancer Screening due on 10/23/2027 Lipid Screening due on 09/12/2029 Prostate Cancer Screening Discussion due on 09/12/2029 DTaP,Tdap,Td Vaccine(3 - Td or Tdap) due on 07/03/2032 Influenza Vaccine Completed Hepatitis C Screening Discontinued HIV Screening Discontinued Covid-19 Vaccine Discontinued Data reviewed None ASSESSMENT/PLAN: 1. Acute cough - ICD9: 786.2, ICD10: R05.1 (primary diagnosis) - BENZONATATE 100 MG CAPSULE - OSELTAMIVIR 75 MG CAPSULE - PREDNISONE 20 MG TABLET 2. Influenza - ICD9: 487.1, ICD10: J11.1 - BENZONATATE 100 MG CAPSULE - OSELTAMIVIR 75 MG CAPSULE - PREDNISONE 20 MG TABLET Call if not improving in 5-7 days Medical Decision Making: Problems: Low: Acute, uncomplicated illness or injury Risk: Moderate: Drug management Medical Decision Making Level: 3 - Low Pierce Wells MD Referring Provider: SELF [200] Allergies As of Date: 12/29/2024 Noted Allergy Reaction EFFEXOR (VENLAFAXINE) 06/17/2021 1 - Mental Status Change Comments: Suicidal thoughts GABAPENTIN 11/13/2017 7 - Swelling Comments: Leg swelling AMLODIPINE 06/08/2016 14 - Other: See Comments Comments: leg swelling LISINOPRIL 02/13/2016 3 - Cough Date Reviewed: 12/29/2024 Reviewed by: Lottie Shah OCCA - Fully Assessed Reason for Visit: Cough [28] Cmt: With SOB, body aches and runny nose that started Wednesday evening Primary Visit Diagnosis:Acute cough [R05.1] Other Visit Diagnosis:Influenza [J11.1] Order(s):benzonatate (TESSALON PERLES) 100 mg capsuleTake 1 capsule by mouth three times a day as needed for cough. (more content not included)... Normal [facility] -- JOSÉ MIGUEL YOUNG SR. ([id number]) 1965 M Date Time Provider Department 12/15/24 [facility] During your visit today, we recorded the following information about you: Braeedn Valdes RN 12/15/2024 3:28 PM Signed Spouse calls to report patient is out of ibuprofen and has no refills at pharmacy. Contacted [facility] and spoke to Izabel. Patient has refills and hasn't filled prescription since early November. Able to refill. Closing encounter. Nothing further needed. Braeden Valdes RN Allergies As of Date: 12/15/2024 Noted Allergy Reaction EFFEXOR (VENLAFAXINE) 06/17/2021 1 - Mental Status Change Comments: Suicidal thoughts GABAPENTIN 11/13/2017 7 - Swelling Comments: Leg swelling AMLODIPINE 06/08/2016 14 - Other: See Comments Comments: leg swelling LISINOPRIL 02/13/2016 3 - Cough Date Reviewed: 09/12/2024 Reviewed by: Armani Leong APRN.[facility] - Fully Assessed Reason for Visit: Medication Problem [65] Prescriptions as of 12/15/2024 - Atenolol-Chlorthalidone 100-25 mg per tablet Take 1 tablet by mouth once daily. - escitalopram oxalate (LEXAPRO) 10 mg tablet Take 1 tablet by mouth once daily. - minoxidil (LONITEN) 10 mg tablet Take 2 tablets by mouth once daily. - finasteride (PROSCAR) 5 mg tablet Take 1 tablet by mouth once daily. - tamsulosin (FLOMAX) 0.4 mg Take 1 capsule by mouth daily at bedtime. - omeprazole (PRILOSEC) 20 mg capsule Take 1 capsule by mouth daily before breakfast. 1/2 hr before meal. - NIFEdipine ER (PROCARDIA XL) 30 mg 24 hr tablet Take 1 tablet by mouth once daily. - ibuprofen (MOTRIN) 800 mg tablet TAKE ONE TABLET BY MOUTH TWICE DAILY WITH MEALS NEEDED - guanFACINE (TENEX) 1 mg tablet Take 1 tablet by mouth daily at bedtime. - losartan (COZAAR) 100 mg tablet Take 1 tablet by mouth once daily. - benzonatate (TESSALON PERLES) 100 mg capsule Take 1 capsule by mouth three times a day as needed for cough. - aspirin 325 mg tablet Take 325 mg by mouth once daily. Problem List As Of Date 12/15/2024 Noted Resolved Essential hypertension [I10] Tobacco use disorder [F17.200] 01/01/2011 06/29/2017 Cutaneous skin tags [L91.8] 06/01/2011 Sebaceous cyst [L72.3] 06/01/2011 Lipoma of unspecified site [D17.9] 06/22/2011 Diuretic-induced hypokalemia [E87.6, T50.2X5A] 02/22/2014 Sciatica [M54.30] 03/05/2014 Lumbago [M54.50] 03/05/2014 Digital mucous cyst [M67.449] 01/13/2016 Anxiety [F41.9] 07/18/2017 Morbid (severe) obesity due to excess calories *01/21/2018 Encounter Status:Closed by BRAEDEN VALDES on 12/15/24 Normal [facility] CBC W Auto Differential pane l (Bld)on 09-12-2024 Basophils (Bld) [#/Vol] 0.03 10*3/uL [facility] Basophils/100 WBC (Bld) 0.5 % [facility] Differential cell count method Nom (Bld) Auto [facility] Eosinophils (Bld) [#/Vol] 0.10 10*3/uL [facility] Eosinophils/100 WBC (Bld) 1.7 % [facility] Erythrocyte distribution width (RBC) [Ratio] 12.9 % 11.5 - 15.0 % [facility] Hematocrit (Bld) [Volume fraction] 42.2 % 39.0 - 51.0 % [facility] Hemoglobin (Bld) [Mass/Vol] 14.3 g/dL 13.0 - 17.0 g/dL [facility] Immature granulocytes (Bld) [#/Vol] 0.03 10*3/uL [facility] Immature granulocytes/100 WBC (Bld) 0.5 % [facility] Lymphocytes (Bld) [#/Vol] 1.43 10*3/uL [facility] Lymphocytes/100 WBC (Bld) 23.7 % [facility] MCH (RBC) [Entitic mass] 29.3 pg 26.0 - 34.0 pg [facility] MCHC (RBC) [Mass/Vol] 33.9 g/dL 30.5 - 36.0 g/dL [facility] MCV (RBC) [Entitic vol] 86.5 fL 80.0 - 100.0 fL [facility] Monocytes (Bld) [#/Vol] 0.48 10*3/uL [facility] Monocytes/100 WBC (Bld) 7.9 % [facility] Neutrophils (Bld) [#/Vol] 3.97 10*3/uL [facility] Neutrophils/100 WBC (Bld) 65.7 % [facility] Nucleated RBC (Bld) [#/Vol] [facility] Nucleated RBC/100 WBC (Bld) [Ratio] 0.0 % /100 WBC [facility] Platelet mean volume (Bld) [Entitic vol] 10.4 fL 9.0 - 12.7 fL [facility] Platelets (Bld) [#/Vol] 239 10*3/uL [facility] RBC (Bld) [#/Vol] 4.88 10*6/uL 4.20 - 6.0 0 m/uL [facility] WBC (Bld) [#/Vol] 6.04 10*3/uL [facility] Basophils (Bld) [#/Vol] 0.03 10*3/uL Normal <0.11 [facility] Comment on above: Order Comment: Speci men Type: BLOOD SPECIMENOrdering Facility: [facility] Address: [address] [place], [place] [id number] Performed By: #### 5 7021-8 ####[facility] LABCLIA [id number] [place] [address] [place] Basophils/100 WBC (Bld) 0.5 % Normal [facility] Comment on above: Order Comment: Speci men Type: BLOOD SPECIMENOrdering Facility: [facility] Address: [address] [place] [address] Performed By: #### 5 7021-8 ####[facility] LABCLIA [id number] [place] [address] [place] Differential cell count method Nom (Bld) Auto Normal [facility] Comment on above: Order Comment: Speci men Type: BLOOD SPECIMENOrdering Facility: [facility] Address: [address] [place] [address] Performed By: #### 5 7021-8 ####[facility] LABCLIA [id number] [place] [address] [place] Eosinophils (Bld) [#/Vol] 0.10 10*3/uL Normal <0.46 [facility] Comment on above: Order Comment: Speci men Type: BLOOD SPECIMENOrdering Facility: [facility] Address: [address] [place] [address] Performed By: #### 5 7021-8 ####[facility] LABCLIA [id number] [place] [address] [place] Eosinophils/100 WBC (Bld) 1.7 % Normal [facility] Comment on above: Order Comment: Speci men Type: BLOOD SPECIMENOrdering Facility: [facility] Address: [address] [place] [address] Performed By: #### 5 7021-8 ####[facility] LABCLIA [id number] [place] [address] [place] Erythrocyte distribution width (RBC) [Ratio] 12.9 % Normal 11.5-15.0 [facility] Comment on above: Order Comment: Speci men Type: BLOOD SPECIMENOrdering Facility: [facility] Address: [address] [place] [address] Performed By: #### 5 7021-8 ####[facility] LABCLIA [id number] [place] [address] [place] Hematocrit (Bld) [Volume fraction] 42.2 % Normal 39.0-51.0 [facility] Comment on above: Order Comment: Speci men Type: BLOOD SPECIMENOrdering Facility: [facility] Address: [address] [place] [address] Performed By: #### 5 7021-8 ####[facility] LABIA [id number] [place] [address] [place] Hemoglobin (Bld) [Mass/Vol] 14.3 g/dL Normal 13.0-17.0 [facility] Comment on above: Order Comment: Speci men Type: BLOOD SPECIMENOrdering Facility: [facility] Address: [address] [place] [address] Performed By: #### 5 7021-8 ####[facility] LABIA [id number] [place] [address] [place] Immature granulocytes (Bld) [#/Vol] 0.03 10*3/uL Normal <0.10 [facility] Comment on above: Order Comment: Speci men Type: BLOOD SPECIMENOrdering Facility: [facility] Address: [address] [place] [address] Performed By: #### 5 7021-8 ####[facility] LABCLIA [id number] [place] [address] [place] Immature granulocytes/100 WBC (Bld) 0.5 % Normal [facility] Comment on above: Order Comment: Speci men Type: BLOOD SPECIMENOrdering Facility: [facility] Address: [address] [place] [address] Performed By: #### 5 7021-8 ####[facility] LABCLIA [id number] [place] [address] [place] Lymphocytes (Bld) [#/Vol] 1.43 10*3/uL Normal 1.00-4.00 [facility] Comment on above: Order Comment: Speci men Type: BLOOD SPECIMENOrdering Facility: [facility] Address: [address] [place] [address] Performed By: #### 5 7021-8 ####[facility] LABCLIA [id number] [place] [address] [place] Lymphocytes/100 WBC (Bld) 23.7 % Normal [facility] Comment on above: Order Comment: Speci men Type: BLOOD SPECIMENOrdering Facility: [facility] Address: [address] [place] [address] Performed By: #### 5 7021-8 ####[facility] LABCLIA [id number] [place] [address] [place] MCH (RBC) [Entitic mass] 29.3 pg Normal 26.0-34.0 [facility] Comment on above: Order Comment: Speci men Type: BLOOD SPECIMENOrdering Facility: [facility] Address: [address] [place] [address] Performed By: #### 5 7021-8 ####[facility] LABCLIA [id number] [place] [address] [place] MCHC (RBC) [Mass/Vol] 33.9 g/dL Normal 30.5-36.0 [facility] Comment on above: Order Comment: Speci men Type: BLOOD SPECIMENOrdering Facility: [facility] Address: [address] [place] [address] Performed By: #### 5 7021-8 ####[facility] LABCLIA [id number] [place] [address] [place] MCV (RBC) [Entitic vol] 86.5 fL Normal 80.0-100.0 [facility] Comment on above: Order Comment: Speci men Type: BLOOD SPECIMENOrdering Facility: [facility] Address: [address] [place] [address] Performed By: #### 5 7021-8 ####[facility] LABCLIA [id number] [place] [address] [place] Monocytes (Bld) [#/Vol] 0.48 10*3/uL Normal <0.87 [facility] Comment on above: Order Comment: Speci men Type: BLOOD SPECIMENOrdering Facility: [facility] Address: [address] [place] [address] Performed By: #### 5 7021-8 ####[facility] LABCLIA [id number] [place] [address] [place] Monocytes/100 WBC (Bld) 7.9 % Normal [facility] Comment on above: Order Comment: Speci men Type: BLOOD SPECIMENOrdering Facility: [facility] Address: [address] [place] [address] Performed By: #### 5 7021-8 ####[facility] LABCLIA [id number] [place] [address] [place] Neutrophils (Bld) [#/Vol] 3.97 10*3/uL Normal 1.45-7.50 [facility] Comment on above: Order Comment: Speci men Type: BLOOD SPECIMENOrdering Facility: [facility] Address: [address] [place] [address] Performed By: #### 5 7021-8 ####[facility] LABCLIA [id number] [place] [address] [place] Neutrophils/100 WBC (Bld) 65.7 % Normal [facility] Comment on above: Order Comment: Speci men Type: BLOOD SPECIMENOrdering Facility: [facility] Address: [address] [place] [address] Performed By: #### 5 7021-8 ####[facility] LABCLIA [id number] [place] [address] [place] Nucleated RBC (Bld) [#/Vol] 10*3/uL Normal <0.01 [facility] Comment on above: Order Comment: Speci men Type: BLOOD SPECIMENOrdering Facility: [facility] Address: [address] [place] [address] Performed By: #### 5 7021-8 ####[facility] LABCLIA [id number] [place] [address] [place] Nucleated RBC/100 WBC (Bld) [Ratio] 0.0 /100 WBC Normal [facility] Comment on above: Order Comment: Speci men Type: BLOOD SPECIMENOrdering Facility: [facility] Address: [address] [place] [address] Performed By: #### 5 7021-8 ####[facility] LABCLIA [id number] [place] [address] [place] Platelet mean volume (Bld) [Entitic vol] 10.4 fL Normal 9.0-12.7 [facility] Comment on above: Order Comment: Speci men Type: BLOOD SPECIMENOrdering Facility: [facility] Address: [address] [place] [address] Performed By: #### 5 7021-8 ####[facility] LABCLIA [id number] [place] [address] [place] Platelets (Bld) [#/Vol] 239 10*3/uL Normal 150-400 [facility] Comment on above: Order Comment: Speci men Type: BLOOD SPECIMENOrdering Facility: [facility] Address: [address] [place] [address] Performed By: #### 5 7021-8 ####[facility] LABCLIA [id number] [place] [address] [place] RBC (Bld) [#/Vol] 4.88 10*6/uL Normal 4.20-6.00 [facility] Comment on above: Order Comment: Speci men Type: BLOOD SPECIMENOrdering Facility: [facility] Address: [address] [place] [address] Performed By: #### 5 7021-8 ####[facility] LABCLIA [id number] [place] [address] [place] WBC (Bld) [#/Vol] 6.04 10*3/uL Normal 3.70-11.00 [facility] Comment on above: Order Comment: Speci men Type: BLOOD SPECIMENOrdering Facility: [facility] Address: [address] [place] [address] Performed By: #### 5 7021-8 ####[facility] LABCLIA [id number] [address] [place] CNOVon 09-12-2024 CNOV [facility] -- JOSÉ MIGUEL YOUNG SR. ([id number]) 1965 M Date Time Provider Department 09/12/24 1:00 PM ARMANI LEONG [facility] During your visit today, we recorded the following information about you: Pulse Respiration Blood pressure Weight 68/minute 16/minute 136/82 161 kg Armani Leong APRN.GATE TECHNICIAN 09/12/2024 1:29 PM Signed Chief Complaint Patient presents with: Yearly Exam HPI José Miguel Young Sr. is a 59 year old male who presents here today for physical and medication follow up. Here with and granddaughter. Patient here for a wellness examination and medication follow-up. 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 Overdue for blood work and colon cancer screening. Previously completed iFOBT kit in the past. He declines colonoscopy as he is very busy with his job and unable to take time off. History of obesity. 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 BPH: Doing okay with Proscar and Flomax. Feels like symptoms are controlled. Hypertension: Following a low-salt diet. Taking his medication as prescribed. Denies any shortness of breath, chest pain, syncope, leg swelling. Depression: Depression is overall controlled. On Lexapro 10 mg. Previously on Wellbutrin also but discontinued. A lot of his depression is in regard to the loss of his daughter years back. During the quiet times and the holidays there seems to be more depressive symptoms. He is overall doing better. Denies any SI. Past medical history, appointments, medications, allergies reviewed. Previous Medical History PAST MEDICAL HISTORY Diagnosis Date Unspecified essential hypertension Previous Surgical History PAST SURGICAL HISTORY Procedure Laterality Date PAST SURGICAL HISTORY OF removal cyst upper back Family History FAMILY HISTORY Problem Relation Age of Onset Diabetes Mother Hypertension Mother Stroke Father other (Lung cancer) Father Diabetes Brother Patient Allergies ALLERGIES Allergen Reactions Effexor [Venlafaxin* Mental Status Change Suicidal thoughts Gabapentin Swelling Leg swelling Amlodipine Other: See Comments leg swelling Lisinopril Cough Current Medications Current Outpatient Medications on File Prior to Visit Medication Sig finasteride (PROSCAR) 5 mg tablet Take 1 tablet by mouth once daily. tamsulosin (FLOMAX) 0.4 mg Take 1 capsule by mouth daily at bedtime. omeprazole (PRILOSEC) 20 mg capsule Take 1 capsule by mouth daily before breakfast. 1/2 hr before meal. NIFEdipine ER (PROCARDIA XL) 30 mg 24 hr tablet Take 1 tablet by mouth once daily. ibuprofen (MOTRIN) 800 mg tablet TAKE ONE TABLET BY MOUTH TWICE DAILY WITH MEALS NEEDED guanFACINE (TENEX) 1 mg tablet Take 1 tablet by mouth daily at bedtime. losartan (COZAAR) 100 mg tablet Take 1 tablet by mouth once daily. escitalopram oxalate (LEXAPRO) 10 mg tablet Take 1 tablet by mouth once daily. minoxidil (LONITEN) 10 mg tablet Take 2 tablets by mouth once daily. Atenolol-Chlorthalidone 100-25 mg per tablet Take 1 tablet by mouth once daily. benzonatate (TESSALON PERLES) 100 mg capsule Take 1 capsule by mouth three times a day as needed for cough. buPROPion XL (WELLBUTRIN XL) 150 mg 24 hr tablet Take 1 tablet by mouth once daily. (Patient not taking: Reported on 11/12/2023) aspirin 325 mg tablet Take 325 mg by mouth once daily. No current facility-administered medications on file prior to visit. Social History Social History Tobacco Use Smoking status: Never Smokeless tobacco: Former Types: Chew Quit date: 10/19/2010 Tobacco comments: Quit chewing 5years Substance Use Topics Alcohol use: No Drug use: No Review of Symptoms REVIEW OF SYSTEMS PAIN ASSESSMENT: Negative for pain, history of chronic pain, or current treatment for a chronic pain condition. HEENT: Negative for frequent or significant headaches, No changes in hearing or vision, no nose bleeds or other nasal problems NECK: Negative for lumps, goiter, pain and significant neck swelling RESPIRATORY: Negative for cough, hemoptysis, wheezing, COPD, dyspnea or shortness of breath CARDIOVASCULAR: See HPI GI: No nausea, vomiting, or diarrhea MUSCULOSKELETAL: Negative for joint pain or swelling, back pain or muscle pain PSYCH: See HPI HEMATOLOGY/LYMPHOLOGY: Negative for prolonged bleeding, bruising easily or swollen nodes ENDOCRINE: Negative for cold or heat intolerance, polyuria, polydipsia and goiter NEURO: No history of headaches, syncope, paralysis, seizures or tremors EXAM: BP 136/82 Pulse 68 Resp 16 Wt (!) 161 kg (355 lb) SpO2 97% BMI 54.78 kg/m? General Appearance: Well appearing, alert, in no acute distress, well-hydrated, well nourished..Obese Head: Normoc (more content not included)... Normal [facility] Comprehensive metabolic 2000 panelon 09-12-2024 Albumin [Mass/Vol] 4.4 g/dL Normal 3.9-4.9 [facility] Comment on above: Order Comment: Speci men Type: BLOOD SPECIMENOrdering Facility: [facility] Address: [address] [place] [address] Performed By: #### L IP, 03892-1 ####[facility] LABCLIA [id number] [facility] [id number] [address] [place] ALP [Catalytic activity/Vol] 52 U/L Normal 38-113 [facility] Comment on above: Order Comment: Speci men Type: BLOOD SPECIMENOrdering Facility: [facility] Address: [address] [place] [address] Performed By: #### L GEOVANNA, 25437-6 ####[facility] LABCLIA [id number] [place] [address] [place] ALT [Catalytic activity/Vol] 46 U/L Normal 10-54 [facility] Comment on above: Order Comment: Speci men Type: BLOOD SPECIMENOrdering Facility: [facility] Address: [address] [place] [address] Result Comment: Resu lts may be falsely increased due to interference from hemolysis. Suggest reorder as clinically indicated. Performed By: #### L GEOVANNA, 66771-2 ####[facility] LABCLIA [id number] [place] [address] [place] Anion gap [Moles/Vol] 14 mmol/L Normal 8-15 [facility] Comment on above: Order Comment: Speci men Type: BLOOD SPECIMENOrdering Facility: [facility] Address: [address] [place] [address] Performed By: #### L GEOVANNA, 99214-9 ####[facility] LABCLIA [id number] [place] [address] [place] AST [Catalytic activity/Vol] 58 U/L High 14-40 [facility] Comment on above: Order Comment: Speci men Type: BLOOD SPECIMENOrdering Facility: [facility] Address: [address] [place] [address] Result Comment: Resu lts may be falsely increased due to interference from hemolysis. Suggest reorder as clinically indicated. Performed By: #### L GEOVANNA, 65728-2 ####[facility] LABCLIA [id number] [place] [address] [place] Bilirubin [Mass/Vol] 1.1 mg/dL Normal 0.2-1.[address] [facility] Comment on above: Order Comment: Speci men Type: BLOOD SPECIMENOrdering Facility: [facility] Address: [address] [place], [place] [address] Performed By: #### L IPNF, 40415-5 ####[facility] LABCLIA [id number] [address] [address] [place] Calcium [Mass/Vol] 9.7 mg/dL Normal 8.5-10.2 [facility] Comment on above: Order Comment: Speci men Type: BLOOD SPECIMENOrdering Facility: [facility] Address: [address] [place] [address] Performed By: #### L IPNF, 68543-5 ####[facility] LABCLIA [id number] [place] [address] [place] Chloride [Moles/Vol] 102 mmol/L Normal 98-[address] [facility] Comment on above: Order Comment: Speci men Type: BLOOD SPECIMENOrdering Facility: [facility] Address: [address] [place], [place] [address] Performed By: #### L IPNF, 01482-7 ####[facility] LABCLIA [id number] [place] [address] [place] CO2 [Moles/Vol] 23 mmol/L Normal 22-30 [facility] Comment on above: Order Comment: Speci men Type: BLOOD SPECIMENOrdering Facility: [facility] Address: [address] [place], [place] [address] Performed By: #### L IPNF, 60342-2 ####[facility] LABCLIA [id number] [place] [id number] [place] Creatinine [Mass/Vol] 0.89 mg/dL Normal 0.73-1.22 [facility] Comment on above: Order Comment: Speci men Type: BLOOD SPECIMENOrdering Facility: [facility] Address: [address] [place] [address] Performed By: #### L GEOVANNA, 88235-2 ####[facility] LABCLIA [id number] [place] [address] [place] Creatinine and Glomerular filtration rate.predicted panel (S/P/Bld) 99 mL/min/1.73m??? Normal >=60 [facility] Comment on above: Order Comment: Leonie schultz Type: BLOOD SPECIMENOrdering Facility: [facility] Address: [address] [place] [address] Result Comment: Tata mated Glomerular Filtration Rate (eGFR) is calculated using the 2020 CKD-EPI creatinine equation. This equation utilizes serum creatinine, sex, and age as parameters. The creatinine assay has traceable calibration to isotope dilution-mass spectrometry. Refer to KDIGO guidelines for clinical interpretation. In patients with unstable renal function, e.g. those with acute kidney injury, the eGFR may not accurately reflect actual GFR. Performed By: #### L GEOVANNA, 06998-3 ####[facility] LABCLIA [id number] [place] [address] [place] Glucose [Mass/Vol] 139 mg/dL High 74-99 [facility] Comment on above: Order Comment: Leonie schultz Type: BLOOD SPECIMENOrdering Facility: [facility] Address: [address] [place] [address] Result Comment: The [place] Diabetes Association (ADA) provides guidance for cutoff values for fasting glucose and random glucose. The ADA defines fasting as no caloric intake for at least 8 hours. Fasting plasma glucose results between 100 to 125 mg/dL indicate increased risk for diabetes (prediabetes). Fasting plasma glucose results greater than or equal to 126 mg/dL meet the criteria for diagnosis of diabetes. In the absence of unequivocal hyperglycemia, results should be confirmed by repeat testing. In a patient with classic symptoms of hyperglycemia or hyperglycemic crisis, random plasma glucose results greater than or equal to 200 mg/dL meet the criteria for diagnosis of diabetes. Reference: Standards of Medical Care in Diabetes 2016, [place] Diabetes Association. Diabetes Care. 2016.39(Suppl 1). Performed By: #### L GEOVANNA, 95734-5 ####[facility] LABCLIA [id number] [place] [address] [place] Potassium [Moles/Vol] 4.6 mmol/L Normal 3.7-5.1 [facility] Comment on above: Order Comment: Speci men Type: BLOOD SPECIMENOrdering Facility: [facility] Address: [address] [place] [address] Performed By: #### L IPNF, ####[facility] LABCLIA [id number] [place] [address] [place] Protein [Mass/Vol] 7.8 g/dL Normal 6.3-8.0 [facility] Comment on above: Order Comment: Speci men Type: BLOOD SPECIMENOrdering Facility: [facility] Address: [address] [place] [address] Performed By: #### L IPNF, 15867-0 ####[facility] LABCLIA [id number] [place] [address] [place] Sodium [Moles/Vol] 139 mmol/L Normal 136-144 [facility] Comment on above: Order Comment: Speci men Type: BLOOD SPECIMENOrdering Facility: [facility] Address: [address] [place] [address] Performed By: #### L IPNF, 78900-3 ####[facility] LABCLIA [id number] [place] [address] [place] Urea nitrogen [Mass/Vol] 16 mg/dL Normal 9-24 [facility] Comment on above: Order Comment: Speci men Type: BLOOD SPECIMENOrdering Facility: [facility] Address: [address] [place] [address] Performed By: #### L IPNF, 95849-2 ####[facility] LABCLIA [id number] [place] [address] [place] HbA1c (Bld)on 09-12-2024 Average glucose Estimated from glycated hemoglobin (Bld) [Mass/Vol] 117 mg/dL Normal [facility] Comment on above: Order Comment: Leonie schultz Type: BLOOD SPECIMENOrdering Facility: [facility] Address: [address] [place] [address] Result Comment: eAG: (Estimated average glucose) is a calculated value from HgbA1c and is service center representative of the average blood glucose level in the last 2-3 month period. Performed By: #### 5 5454-3 ####[facility] LABCLIA [id number] [place] [address] [place] HbA1c (Bld) [Mass fraction] 5.7 % High 4.3-5.6 [facility] Comment on above: Order Comment: Leonie schultz Type: BLOOD SPECIMENOrdering Facility: [facility] Address: [address] [place] [address] Result Comment: [place] Diabetes Association guidelines indicate that patients with HgbA1c in the range 5.7-6.4% are at increased risk for development of diabetes, and intervention by lifestyle modification may be beneficial. HgbA1c greater or equal to 6.5% is considered diagnostic of diabetes. Performed By: #### 5 5454-3 ####[facility] LABCLIA [id number] [place] [address] [place] LIPID PANEL, NONFASTINGon Cholesterol [Mass/Vol] 153 mg/dL Normal <200 [facility] Comment on above: Order Comment: Leonie schultz Type: BLOOD SPECIMENOrdering Facility: [facility] Address: [address] [place] [address] Result Comment: <200 mg/dL, Desirable 200-239 mg/dL, Borderline high >239 mg/dL, High Performed By: #### L IP, 66389-2 ####[facility] LABIA [id number] [place] [address] [place] HDL CHOLESTEROL, NF 42 mg/dL Normal >39 [facility] Comment on above: Order Comment: Leonie schultz Type: BLOOD SPECIMENOrdering Facility: [facility] Address: [address] [place] [address] Result Comment: 40-5 9 mg/dL, Acceptable >59 mg/dL, High: Negative risk factor for coronary heart disease <40 mg/dL, Low: Positive risk factor for coronary heart disease Performed By: #### L GEOVANNA, 93689-0 ####[facility] LABCLIA [id number] [place] [address] [place] LDL CHOLESTEROL, NF 83 mg/dL Normal <100 [facility] Comment on above: Order Comment: Speci men Type: BLOOD SPECIMENOrdering Facility: [facility] Address: [address] [place] [address] Result Comment: <100 mg/dL, Optimal 100-129 mg/dL, Near optimal/above optimal 130-159 mg/dL, Borderline high 160-189 mg/dL, High >189 mg/dL, Very high Secondary prevention optimal LDL Cholesterol levels are recommended to be < 70 mg/dL Performed By: #### L GEOVANNA, ####[facility] LABCLIA [id number] [address] [place] LDL/HDL RATIO, NF 1.98 mg/dL Normal <2.54 [facility] Comment on above: Order Comment: Speci men Type: BLOOD SPECIMENOrdering Facility: [facility] Address: [address] [place] [address] Result Comment: Reflucero ohce: 1. National Cholesterol Education Program ATP III Guideline At-A-Glance Quick Desk Reference: National Heart, Lung, and Blood [place]. National Institutes of Health. 2001: NIH Publication No. 01-3305. 2. An International Atherosclerosis Society position paper: global recommendations for the management of dyslipidemia: executive summary, Atherosclerosis. 2014: 232(2):410-413. Performed By: #### L GEOVANNA, 62516-1 ####[facility] LABCLIA [id number] [place] [address] [place] NON HDL CHOL, NF 111 mg/dL Normal <130 [facility] Comment on above: Order Comment: Speci men Type: BLOOD SPECIMENOrdering Facility: [facility] Address: [address] [place] [address] Result Comment: <130 mg/dL, Optimal 130-159 mg/dL, Near optimal/above optimal 160-189 mg/dL, Borderline high 190-219 mg/dL, High >219 mg/dL, Very high Secondary prevention optimal non HDL Cholesterol levels are recommended to be <100 mg/dL Performed By: #### L IPNF, ####[facility] LABCLIA [id number] [place] [address] [place] T CHOL/HDL RATIO NF 3.64 mg/dL Normal <5.10 [facility] Comment on above: Order Comment: Speci men Type: BLOOD SPECIMENOrdering Facility: [facility] Address: [address] [place] [address] Performed By: #### L IPNF, ####[facility] LABCLIA [id number] [place] [address] [place] TRIGLYCERIDES, NF 140 mg/dL Normal <150 [facility] Comment on above: Order Comment: Speci men Type: BLOOD SPECIMENOrdering Facility: [facility] Address: [address] [place] [address] Result Comment: <150 mg/dL, Normal 150-199 mg/dL, Borderline high 200-499 mg/dL, High >499 mg/dL, Very high Performed By: #### L IPNF, [id number] ####[facility] LABCLIA [id number] [place] [address] [place] VLDL CHOLESTEROL, NF 28 mg/dL Normal <[address] [facility] Comment on above: Order Comment: Speci men Type: BLOOD SPECIMENOrdering Facility: [facility] Address: [address] [place] [address] Performed By: #### L IPNF, 07390-6 ####[facility] LABCLIA [id number] [place] [address] [place] PSA/PROSTATE SPECIFIC ANTIGE N SCREENINGon 09-12-2024 Prostate specific Ag [Mass/Vol] 0.13 ng/mL Normal <2.60 [facility] Comment on above: Order Comment: Speci men Type: BLOOD SPECIMENOrdering Facility: [facility] Address: [address] [place] [address] Result Comment: Tota l PSA test methodology used is the Electrochemiluminescence Immunoassay by [employer]. Total PSA values by differing methodologies cannot be interchanged. Performed By: #### P SAS1 ####[facility] LABCLIA [id number] [address] OF [facility] 09-05-2024 [facility] -- JOSÉ MIGUEL YOUNG SR. ([id number]) 1965 M Date Time Provider Department 09/05/24 [facility] During your visit today, we recorded the following information about you: Suzi Wyman 09/05/2024 10:33 AM Signed Patient's spouse calling to request medication that is : scitalopram oxalate (LEXAPRO) 10 mg tablet () Last office visit Future visit scheduled No PHARMACY: Armani [place] APRN.CNP 09/05/2024 11:23 AM Signed Sent The following approved medication requests have been transmitted electronically. Requested Prescriptions Signed Prescriptions Disp Refills escitalopram oxalate (LEXAPRO) 10 mg tablet 30 tablet 5 Sig: Take 1 tablet by mouth once daily. Authorizing Provider: ARMANI LEONG APRN.CNP Allergies As of Date: 09/05/2024 Noted Allergy Reaction EFFEXOR (VENLAFAXINE) 06/17/2021 1 - Mental Status Change Comments: Suicidal thoughts GABAPENTIN 11/13/2017 7 - Swelling Comments: Leg swelling AMLODIPINE 06/08/2016 14 - Other: See Comments Comments: leg swelling LISINOPRIL 02/13/2016 3 - Cough Date Reviewed: 11/12/2023 Reviewed by: Andree Topete - Fully Assessed Reason for Visit: requesting medication that is [Other] Visit Diagnosis:Reactive depression [F32.9] Order(s):escitalopram oxalate (LEXAPRO) 10 mg tabletTake 1 tablet by mouth once daily.Disp: 30 tabletRfl: 5 Prescriptions as of 09/05/2024 - Atenolol-Chlorthalidone 100-25 mg per tablet Take 1 tablet by mouth once daily. - minoxidil (LONITEN) 10 mg tablet Take 2 tablets by mouth once daily. - escitalopram oxalate (LEXAPRO) 10 mg tablet Take 1 tablet by mouth once daily. - finasteride (PROSCAR) 5 mg tablet Take 1 tablet by mouth once daily. - tamsulosin (FLOMAX) 0.4 mg Take 1 capsule by mouth daily at bedtime. - omeprazole (PRILOSEC) 20 mg capsule Take 1 capsule by mouth daily before breakfast. 1/2 hr before meal. - NIFEdipine ER (PROCARDIA XL) 30 mg 24 hr tablet Take 1 tablet by mouth once daily. - ibuprofen (MOTRIN) 800 mg tablet TAKE ONE TABLET BY MOUTH TWICE DAILY WITH MEALS NEEDED - guanFACINE (TENEX) 1 mg tablet Take 1 tablet by mouth daily at bedtime. - losartan (COZAAR) 100 mg tablet Take 1 tablet by mouth once daily. - benzonatate (TESSALON PERLES) 100 mg capsule Take 1 capsule by mouth three times a day as needed for cough. - buPROPion XL (WELLBUTRIN XL) 150 mg 24 hr tablet Take 1 tablet by mouth once daily. - aspirin 325 mg tablet Take 325 mg by mouth once daily. Problem List As Of Date 09/05/2024 Noted Resolved Essential hypertension [I10] Tobacco use disorder [F17.200] 01/01/2011 06/29/2017 Cutaneous skin tags [L91.8] 06/01/2011 Sebaceous cyst [L72.3] 06/01/2011 Lipoma of unspecified site [D17.9] 06/22/2011 Diuretic-induced hypokalemia [E87.6, T50.2X5A] 02/22/2014 Sciatica [M54.30] 03/05/2014 Lumbago [M54.50] 03/05/2014 Digital mucous cyst [M67.449] 01/13/2016 Anxiety [F41.9] 07/18/2017 Morbid (severe) obesity due to excess calories *01/21/2018 Prescriptions ordered this encounter Disp Refills Start End ESCITALOPRAM 10 MG TABLET 30 t* 5 09/05/2024 03/04/2025 Route: ORAL Sig: Take 1 tablet by mouth once daily. Medications Discontinued During This Encounter Prescriptions - escitalopram oxalate (LEXAPRO) 10 mg tablet (Discontinued) Take 1 tablet by mouth once daily. Encounter Status:Closed by ARMANI LEONG on 09/05/24 Normal [facility] XR Knee - left 4 Viewson IMPRESSION: Marked degenerative changes, with loose bodies and effusion, and abnormality of bilateral patellofemoral and knee joints. No acute fracture. No dislocation. Prn Physical Therapist: PSCB Transcribe Date/Time: Apr 17 2021 10:31A Dictated by : JOSÉ MIGUEL BUTLER MD This examination was interpreted and the report reviewed and electronically signed by: JOSÉ MIGUEL BUTLER MD on Apr 17 2021 10:48AM [facility] DIVISION OF RADIOLOGY * * *Final Report* * * DATE OF EXAM: Apr 17 2021 10:28AM WOX 5202 - XR KNEE 4V AP/PA BOTH+LAT/LETICIA LT / PROCEDURE REASON: Knee injury, left, initial encounter * * * * Physician Interpretation * * * * HISTORY: Knee injury, left, initial encounter pt states twisted his left knee yesterday, pain lateral side of patella TECHNIQUE: AP upright, tunnel upright, and sunrise views of both knees, and lateral view of the left knee COMPARISON: 04/03/2009 left knee RESULT: There is marked degenerative narrowing of the medial joint space compartments of the both knees, and new on the left since 2008. There are several bony loose bodies anterior and posteriorly in the left knee joint. There is again right bipartite patella. There is marked degenerative narrowing of the lateral right patellofemoral joint space and moderate degenerative narrowing of the left patellofemoral joint space. There is a left knee joint effusion. DIVISION OF RADIOLOGY Provider, Khanh christianson [place] - 04/17/2021 * * *Final Report* * * DATE OF EXAM: Apr 17 2021 10:28AM WOX 5202 - XR KNEE 4V AP/PA BOTH+LAT/LETICIA LT / PROCEDURE REASON: Knee injury, left, initial encounter * * * * Physician Interpretation * * * * HISTORY: Knee injury, left, initial encounter pt states twisted his left knee yesterday, pain lateral side of patella TECHNIQUE: AP upright, tunnel upright, and sunrise views of both knees, and lateral view of the left knee COMPARISON: 04/03/2009 left knee RESULT: There is marked degenerative narrowing of the medial joint space compartments of the both knees, and new on the left since 2008. There are several bony loose bodies anterior and posteriorly in the left knee joint. There is again right bipartite patella. There is marked degenerative narrowing of the lateral right patellofemoral joint space and moderate degenerative narrowing of the left patellofemoral joint space. There is a left knee joint effusion. IMPRESSION IMPRESSION: Marked degenerative changes, with loose bodies and effusion, and abnormality of bilateral patellofemoral and knee joints. No acute fracture. No dislocation. Prn Physical Therapist: PSCB Transcribe Date/Time: Apr 17 2021 10:31A Dictated by : JOSÉ MIGUEL BUTLER MD This examination was interpreted and the report reviewed and electronically signed by: JOSÉ MIGUEL BUTLER MD on Apr 17 2021 10:48AM EST [facility] Radiology Study observation (narrative) [facility] XR Knee - left 4 ViewsOrdere d By: Ccf Provider on 04-17-2021 [facility] Vital Signs Date Time Vital Sign Value Performing Clinician Facility 07-23-2025 10:52-0400 Diastolic blood pressure 88 mm[Hg] Armani Leong APRN.CNP Work Phone: [facility] 07-23-2025 10:52-0400 Systolic blood pressure 140 mm[Hg] Armani Leong APRN.CNP Work Phone: [facility] 07-23-2025 10:39-0400 Body mass index (BMI) [Ratio] 50.27 kg/m2 Armani Salo REMOTE BROADCAST ENGINEER.GATE TECHNICIAN Work Phone: [facility] 07-23-2025 10:39-0400 Body weight 147.78 kg Armani Salo REMOTE BROADCAST ENGINEER.GATE TECHNICIAN Work Phone: [facility] 07-23-2025 10:39-0400 Heart rate 69 /min Armani Salo REMOTE BROADCAST ENGINEER.GATE TECHNICIAN Work Phone: [facility] 07-23-2025 10:39-0400 Respiratory rate 18 /min Armani Salo REMOTE BROADCAST ENGINEER.GATE TECHNICIAN Work Phone: [facility] 07-23-2025 10:39-0400 SaO2% (BldA) [Mass fraction] 95 % Armani Salo REMOTE BROADCAST ENGINEER.GATE TECHNICIAN Work Phone: [facility] 06-25-2025 13:00-0400 Body height 170.[address] Pierce Wells MD Work Phone: [facility] 06-25-2025 13:00-0400 Body mass index (BMI) [Ratio] 49.9 kg/m2 Dr. Pierce Wells MD Work Phone: [facility] 06-25-2025 13:00-0400 Body weight 144.[address] Pierce Wells MD Work Phone: [facility] 06-25-2025 13:00-0400 Diastolic blood pressure 85 mm[Hg] Dr. Pierce Wells MD Work Phone: [facility] 06-25-2025 13:00-0400 Heart rate 69 /min Dr. Pierce Wells MD Work Phone: [facility] 06-25-2025 13:00-0400 Respiratory rate 18 /min Dr. Pierce Wells MD Work Phone: [facility] 06-25-2025 13:00-0400 Systolic blood pressure 124 mm[Hg] Dr. Pierce Wells MD Work Phone: [facility] 06-04-2025 08:37-0400 Body mass index (BMI) [Ratio] 50 kg/m2 Armani Salo REMOTE BROADCAST ENGINEER.GATE TECHNICIAN Work Phone: [facility] 06-04-2025 08:37-0400 Body weight 146.97 kg Armani Salo REMOTE BROADCAST ENGINEER.GATE TECHNICIAN Work Phone: [facility] 06-04-2025 08:37-0400 Diastolic blood pressure 78 mm[Hg] Armani Salo REMOTE BROADCAST ENGINEER.GATE TECHNICIAN Work Phone: [facility] 06-04-2025 08:37-0400 Heart rate 62 /min Armani Salo REMOTE BROADCAST ENGINEER.GATE TECHNICIAN Work Phone: [facility] 06-04-2025 08:37-0400 Respiratory rate 18 /min Armani Salo REMOTE BROADCAST ENGINEER.GATE TECHNICIAN Work Phone: [facility] 06-04-2025 08:37-0400 SaO2% (BldA) [Mass fraction] 95 % Armani Salo REMOTE BROADCAST ENGINEER.GATE TECHNICIAN Work Phone: [facility] 06-04-2025 08:37-0400 Systolic blood pressure 130 mm[Hg] Armani Salo REMOTE BROADCAST ENGINEER.GATE TECHNICIAN Work Phone: [facility] 05-16-2025 11:31-0400 Body height 170.[address] Pierce Wells MD Work Phone: [facility] 05-16-2025 11:31-0400 Body weight 145.[address] Pierce Wells MD Work Phone: [facility] 05-15-2025 08:43-0400 Body mass index (BMI) [Ratio] 50.1 kg/m2 Dr. Pierce Wells MD Work Phone: [facility] 05-09-2025 16:07-0400 Diastolic blood pressure 83 mm[Hg] Dr. Pierce Wells MD Work Phone: [facility] 05-09-2025 16:07-0400 Systolic blood pressure 154 mm[Hg] Dr. Pierce Wells MD Work Phone: [facility] 05-09-2025 15:54-0400 Body height 170.[address] Pierce Wells MD Work Phone: [facility] 05-09-2025 15:54-0400 Body mass index (BMI) [Ratio] 50.1 kg/m2 Dr. Pierce Wells MD Work Phone: [facility] 05-09-2025 15:54-0400 Body weight 145.[address] Pierce Wells MD Work Phone: [facility] 05-09-2025 15:54-0400 Heart rate 73 /min Dr. Pierce Wells MD Work Phone: [facility] 05-09-2025 15:54-0400 Respiratory rate 18 /min Dr. Pierce Wells MD Work Phone: [facility] 05-05-2025 08:31-0400 Body mass index (BMI) [Ratio] 49.36 kg/m2 Pierce Wells MD Work Phone: [facility] 05-05-2025 08:31-0400 Body weight 145.1 kg Pierce Wells MD Work Phone: [facility] 05-05-2025 08:31-0400 Diastolic blood pressure 80 mm[Hg] Pierce Wells MD Work Phone: [facility] 05-05-2025 08:31-0400 Heart rate 78 /min Pierce Wells MD Work Phone: [facility] 05-05-2025 08:31-0400 Respiratory rate 18 /min Pierce Wells MD Work Phone: [facility] 05-05-2025 08:31-0400 SaO2% (BldA) [Mass fraction] 95 % Pierec Wells MD Work Phone: [facility] 05-05-2025 08:31-0400 Systolic blood pressure 128 mm[Hg] Pierce Wells MD Work Phone: [facility] 03-25-2025 22:26-0400 Body temperature 97.6 [degF] Dr. Pierce Wells MD Work Phone: 4(808)975-341802 [place] [address] 03-25-2025 22:26-0400 Diastolic blood pressure 64 mm[Hg] Dr. Pierce Wells MD Work Phone: 5(625)316-185802 [place] [address] 03-25-2025 22:26-0400 Heart rate 95 /min Dr. Pierce Wells MD Work Phone: 1(405)474-252402 [place] [address] 03-25-2025 22:26-0400 Respiratory rate 19 /min Dr. Pierce Wells MD Work Phone: 2(146)221-479902 [place] [address] 03-25-2025 22:26-0400 SaO2% (BldA) [Mass fraction] 94 % Dr. Pierce Wells MD Work Phone: 9(084)054-608302 [place] [address] 03-25-2025 22:26-0400 Systolic blood pressure 102 mm[Hg] Dr. Pierce Wells MD Work Phone: 5(087)472-902402 [place] [address] 03-25-2025 17:38-0400 Body mass index (BMI) [Ratio] 51 kg/m2 Dr. Pierce Wells MD Work Phone: 9(682)127-858502 [place] [address] 03-25-2025 17:38-0400 Body weight [address] Pierce Wells MD Work Phone: 5(869)928-856102 [place] [address] 03-25-2025 16:13-0400 Body height 170.[address] Pierce Wells MD Work Phone: 7(754)916-238002 [place] [address] 03-22-2025 15:32-0400 Body mass index (BMI) [Ratio] 51.3 kg/m2 Dr. Pierce Wells MD Work Phone: 0(217)204-851102 [place] [address] 03-22-2025 15:32-0400 Body weight 148.[address] Pierce Wells MD Work Phone: 4(511)972-411502 [place] [address] 03-22-2025 14:00-0400 Body temperature 98.6 [degF] Dr. Pierce Wells MD Work Phone: 5(988)691-225802 [place] [address] 03-22-2025 14:00-0400 Diastolic blood pressure 52 mm[Hg] Dr. Pierce Wells MD Work Phone: 4(957)486-746302 [place] [address] 03-22-2025 14:00-0400 Heart rate 87 /min Dr. Pierce Wells MD Work Phone: 5(546)206-025902 [place] [address] 03-22-2025 14:00-0400 Inhaled oxygen flow rate 2 L/min Dr. Pierce Wells MD Work Phone: 1(382)564-721802 [place] [address] 03-22-2025 14:00-0400 Respiratory rate 16 /min Dr. Pierce Wells MD Work Phone: 1(412)288-955402 [place] [address] 03-22-2025 14:00-0400 SaO2% (BldA) [Mass fraction] 95 % Dr. Pierce Wells MD Work Phone: 2(985)292-205402 [place] [address] 03-22-2025 14:00-0400 Systolic blood pressure 134 mm[Hg] Dr. Pierce Wells MD Work Phone: 4(552)853-291802 [place] [address] 03-19-2025 10:55-0400 Body height 170.[address] Pierce Wells MD Work Phone: 6(987)941-772202 [place] [address] 03-18-2025 21:15-0400 Body temperature 98.2 [degF] Dr. Pierce Wells MD Work Phone: 3(035)362-480202 [place] [address] 03-18-2025 21:15-0400 Diastolic blood pressure 105 mm[Hg] Dr. Pierce Wells MD Work Phone: 1(436)749-006602 [place] [address] 03-18-2025 21:15-0400 Heart rate 88 /min Dr. Pierce Wells MD Work Phone: 1(101)324-489102 [place] [address] 03-18-2025 21:15-0400 Respiratory rate 24 /min Dr. Pierce Wells MD Work Phone: 6(590)155-701102 [place] [address] 03-18-2025 21:15-0400 SaO2% (BldA) [Mass fraction] 96 % Dr. Pierce Wells MD Work Phone: 1(406)359-137302 [place] [address] 03-18-2025 21:15-0400 Systolic blood pressure 170 mm[Hg] Dr. Pierce Wells MD Work Phone: 9(850)433-314102 [place] [address] 03-18-2025 21:00-0400 Inhaled oxygen flow rate 3 L/min Dr. Pierce Wells MD Work Phone: 0(336)888-987702 [place] [address] 03-18-2025 19:19-0400 Body height 170.[address] Pierce Wells MD Work Phone: 9(721)345-932802 [place] [address] 03-18-2025 19:19-0400 Body mass index (BMI) [Ratio] 55.6 kg/m2 Dr. Pierce Wells MD Work Phone: 6(470)564-985002 [place] [address] 03-18-2025 19:19-0400 Body weight 161.[address] Pierce Wells MD Work Phone: 0(098)221-898502 [place] [address] 03-05-2025 14:28-0400 Body temperature 98.1 [degF] Dr. Pierce Wells MD Work Phone: 0(350)412-126302 [place] [address] 03-05-2025 14:28-0400 Diastolic blood pressure 98 mm[Hg] Dr. Pierce Wells MD Work Phone: 9(149)310-625202 [place] [address] 03-05-2025 14:28-0400 Heart rate 74 /min Dr. Pierce Wells MD Work Phone: 4(743)117-822102 [place] [address] 03-05-2025 14:28-0400 Respiratory rate 14 /min Dr. Pierce Wells MD Work Phone: 9(786)800-806202 [place] [address] 03-05-2025 14:28-0400 SaO2% (BldA) [Mass fraction] 94 % Dr. Pierce Wells MD Work Phone: 0(477)781-383902 [place] [address] 03-05-2025 14:28-0400 Systolic blood pressure 141 mm[Hg] Dr. Pierce Wells MD Work Phone: 5(653)518-905602 [place] [address] 03-05-2025 05:28-0400 Body mass index (BMI) [Ratio] 54.5 kg/m2 Dr. Pierce Wells MD Work Phone: 3(395)331-811702 [place] [address] 03-05-2025 05:28-0400 Body weight [address] Pierce Wells MD Work Phone: [facility] 03-05-2025 03:10-0400 Inhaled oxygen flow rate 2 L/min Dr. Pierce Wells MD Work Phone: [facility] 03-03-2025 15:04-0400 Body height 170.[address] Pierce Wells MD Work Phone: [facility] 12-29-2024 16:05-0500 Body mass index (BMI) [Ratio] 54.87 kg/m2 Pierce Wells MD Work Phone: [facility] 12-29-2024 16:05-0500 Body temperature 98.01 [degF] Pierce Wells MD Work Phone: [facility] 12-29-2024 16:05-0500 Body weight 161.3 kg Pierce Wells MD Work Phone: [facility] 12-29-2024 16:05-0500 Diastolic blood pressure 92 mm[Hg] Pierce Wells MD Work Phone: [facility] 12-29-2024 16:05-0500 Heart rate 82 /min Pierce Wells MD Work Phone: [facility] 12-29-2024 16:05-0500 Respiratory rate 24 /min Pierce Wells MD Work Phone: [facility] 12-29-2024 16:05-0500 SaO2% (BldA) [Mass fraction] 94 % Pierce Wells MD Work Phone: [facility] 12-29-2024 16:05-0500 Systolic blood pressure 138 mm[Hg] Pierce Wells MD Work Phone: [facility] 09-12-2024 13:10-0500 Diastolic blood pressure 82 mm[Hg] Armani Leong APRN.CNP Work Phone: [facility] 09-12-2024 13:10-0500 Systolic blood pressure 136 mm[Hg] Armani Salo REMOTE BROADCAST ENGINEER.GATE TECHNICIAN Work Phone: [facility] 09-12-2024 12:52-0500 Body mass index (BMI) [Ratio] 54.78 kg/m2 Armani Leong REMOTE BROADCAST ENGINEER.GATE TECHNICIAN Work Phone: [facility] 09-12-2024 12:52-0500 Body weight 161.03 kg Armani Leong REMOTE BROADCAST ENGINEER.GATE TECHNICIAN Work Phone: [facility] 09-12-2024 12:52-0500 Heart rate 68 /min Armani Leong REMOTE BROADCAST ENGINEER.GATE TECHNICIAN Work Phone: [facility] 09-12-2024 12:52-0500 Respiratory rate 16 /min Armani Leong REMOTE BROADCAST ENGINEER.GATE TECHNICIAN Work Phone: [facility] 09-12-2024 12:52-0500 SaO2% (BldA) [Mass fraction] 97 % Armani Leong REMOTE BROADCAST ENGINEER.GATE TECHNICIAN Work Phone: [facility] 07-23-2023 13:47-0400 Diastolic blood pressure 78 mm[Hg] Armani Salo REMOTE BROADCAST ENGINEER.GATE TECHNICIAN Work Phone: [facility] 07-23-2023 13:47-0400 Heart rate 69 /min Armani Leong REMOTE BROADCAST ENGINEER.GATE TECHNICIAN Work Phone: [facility] 07-23-2023 13:47-0400 Systolic blood pressure 168 mm[Hg] Armani Salo REMOTE BROADCAST ENGINEER.GATE TECHNICIAN Work Phone: [facility] 07-23-2023 13:33-0400 Body height 171.5 cm Armani Leong REMOTE BROADCAST ENGINEER.GATE TECHNICIAN Work Phone: [facility] 07-23-2023 13:33-0400 Body temperature 98.8 [degF] Armani Leong REMOTE BROADCAST ENGINEER.GATE TECHNICIAN Work Phone: [facility] 07-23-2023 13:33-0400 Body weight 159.94 kg Armani Leong REMOTE BROADCAST ENGINEER.GATE TECHNICIAN Work Phone: [facility] 07-23-2023 13:33-0400 Respiratory rate 20 /min Armani Leong APRN.CNP Work Phone: [facility] 07-23-2023 13:33-0400 SaO2% (BldA) [Mass fraction] 97 % Armani Leong APRN.CNP Work Phone: [facility] Encounters Encounter Date Encounter Type Care Provider Facility Start: 08-10-2025 ambulatory [facility] Facility:[facility] Start: 07-31-2025 End: 07-31-2025 ambulatory [facility] Facility:[facility] Start: 07-23-2025 End: 07-25-2025 Telephone encounter Muna RODRIGUEZ Navigation Start: 07-23-2025 End: 07-23-2025 Subsequent hospital visit by physician Manasa [facility] Work Phone: Radiology Comment on above: Primary osteoarthrit is of both knees [M17.0] Start: 07-23-2025 End: 07-23-2025 Office outpatient visit 25 minutes Armani Leong APRN.CNP Work Phone: [facility] Comment on above: Chronic bilateral lo w back pain without sciatica (Primary Dx); Reactive depression; Essential hypertension; Primary osteoarthritis of both knees; Food insecurity Start: 07-23-2025 End: 07-23-2025 ambulatory [facility] Facility:[facility] Start: 07-18-2025 End: 07-18-2025 [facility] Comment on above: Chronic right-sided low back pain without sciatica (Primary Dx) Start: 07-13-2025 End: 07-13-2025 ambulatory Armani Leong APRN.CNP Work Phone: [facility] Comment on above: Disability Paperwork Start: 07-13-2025 End: 07-13-2025 E-mail encounter from caregiver Armani Leong APRN.CNP Work Phone: [facility] Start: 07-10-2025 End: 07-13-2025 Telephone encounter Pierce Wells MD Work Phone: [facility] Comment on above: Forms (Disability) Start: 06-25-2025 End: 06-25-2025 Patient encounter procedure José Miguel [facility] Work Phone: Start: 06-25-2025 End: 06-25-[address] Pierce Wells MD Work Phone: [facility] Start: 06-14-2025 End: 06-18-2025 ambulatory ARMANI LEONG Facility:[facility] Comment on above: Sleep study Start: 06-04-2025 End: 06-04-[address] Dimitris Lucio MD -[facility] Work Phone: Start: 06-04-2025 End: 06-04-2025 Subsequent hospital visit by physician Xr [facility] Work Phone: Radiology Comment on above: Chronic right-sided low back pain without sciatica [M54.50, G89.29] Start: 06-04-2025 End: 06-04-2025 Office outpatient visit 25 minutes Armani Leong REMOTE BROADCAST ENGINEER.GATE TECHNICIAN Work Phone: [facility] Comment on above: Heart failure, unspe cified HF chronicity, unspecified heart failure type (HCC) (Primary Dx); Atrial fibrillation, unspecified type (HCC); Essential hypertension; Benign prostatic hyperplasia with nocturia; Chronic right-sided low back pain without sciatica; Reactive depression Start: 06-04-2025 End: 06-04-[address] Pierce Wells MD Work Phone: [facility] Start: 05-29-2025 End: 06-08-2025 Refill Pierce Wells MD Work Phone: [facility] Comment on above: Refill Request Start: 05-23-2025 End: 05-23-[address] Dimitris Lucio MD -[facility] Work Phone: Start: 05-23-2025 End: 05-23-[address] Pierce Wells MD Work Phone: -[facility] Start: 05-21-2025 End: 05-21-2025 Telephone encounter Pierce Wells MD Work Phone: [facility] [place] Comment on above: Medication Question Start: 05-16-2025 ambulatory Bay Phillips Facility:[facility] Start: 05-16-2025 Non-patient / Non-visit Dr. Bay marrero DO -[facility] Start: 05-16-2025 End: 05-16-2025 Admission to same day surgery center Dr. Dimitris Lucio MD -Director Of Quantitative Research/Special Procedures Work Phone: Start: 05-16-2025 End: 05-16-[address] Pierce Wells MD Work Phone: -Director Of Quantitative Research/Special Procedures Start: 05-12-2025 End: 05-12-2025 ambulatory Jennifer Timmons RN NURSE RD LAB TECHNICIAN Comment on above: Watery Eyes Both Eye s Start: 05-09-2025 End: 05-09-[address] Dimitris Lucio MD -[facility] Work Phone: Start: 05-09-2025 End: 05-09-[address] Pierce Wells MD Work Phone: -[facility] Start: 05-08-2025 End: 07-08-2025 Follow-up encounter Pierce Wells MD Work Phone: [facility] [place] Start: 05-05-2025 End: 05-05-2025 Office outpatient visit 25 minutes Pierce Wells MD Work Phone: [facility] [place] Comment on above: Heart failure, unspe cified HF chronicity, unspecified heart failure type (HCC) (Primary Dx); Reactive depression; Essential hypertension; Atrial fibrillation, unspecified type (HCC); Chronic bilateral low back pain without sciatica Start: 05-05-2025 End: 05-05-2025 ambulatory PIERCE WELLS Facility:[facility] Start: 04-18-2025 End: 04-24-2025 Telephone encounter Pierce Wells MD Work Phone: [facility] [place] Comment on above: Patient Update Start: 03-30-2025 End: 03-30-2025 ambulatory PIERCE WELLS Facility:[facility] Start: 03-27-2025 End: 04-03-2025 Telephone encounter Pierce Wells MD Work Phone: [facility] Comment on above: Forms (FMLA) Start: 03-25-2025 End: 03-25-2025 Emergency department patient visit Dr. Pierce Wells MD Work Phone: -Emergency Department Work Phone: Start: 03-25-2025 End: 03-25-2025 ambulatory Malissa Amaya RN NURSE RD LAB TECHNICIAN Comment on above: Diarrhea Start: 03-23-2025 End: 03-26-2025 Patient Outreach Ruby Lee MA [facility] Comment on above: Transition Of Care Start: 03-22-2025 Non-patient / Non-visit Dr. Zoë Khan MD -[facility] Work Phone: Start: 03-22-2025 End: 03-23-2025 Telephone encounter Pierce Wells MD Work Phone: [facility] Comment on above: Patient Update Start: 03-21-2025 Non-patient / Non-visit Dr. Malcom Mejia [facility] Work Phone: Start: 03-20-2025 Non-patient / Non-visit [facility] Work Phone: Start: 03-19-2025 ambulatory Thierno Geiger ty:[facility] Start: 03-19-2025 End: 03-22-2025 Evaluation and management of inpatient Dr. Zoë Khan MD -[facility] Work Phone: Start: 03-19-2025 Non-patient / Non-visit [facility]. [facility]com [facility] Work Phone: Start: 03-18-2025 ambulatory Thierno Geiger ty:[facility] Start: 03-18-2025 Evaluation and manag ement of inpatient Dr. Thierno Campos [facility] Work Phone: Start: 03-18-2025 Non-patient / Non-visit Dr. Yvan Campos formerly [facility] Work Phone: Start: 03-18-[address] Pierce Wells MD Work Phone: [facility] Work Phone: Start: 03-05-2025 Non-patient / Non-visit Dr. Valente formerly [facility] Work Phone: Start: 03-04-2025 Non-patient / Non-visit Dr. Yulissa Florian formerly [facility] Work Phone: Start: 03-03-2025 Non-patient / Non-visit Dr. Yulissa Florian [facility] Work Phone: Start: 03-03-2025 ambulatory [facility] Facility:[facility] Start: 03-03-2025 Non-patient / Non-visit Dr. Sagrario singh MD -[facility] Start: 03-02-2025 ambulatory Thierno Campos Facili ty:[facility] Start: 03-02-2025 End: 03-05-2025 Evaluation and management of inpatient Dr. Jostin Arriaza [facility] Work Phone: Start: 03-02-2025 End: 03-02-2025 ambulatory PIERCE WELLS Facility:[facility] Start: 01-01-2025 End: 01-01-2025 Telephone encounter Pierce Wells MD Work Phone: [facility] Comment on above: Letter Start: 12-29-2024 End: 12-29-2024 Patient encounter procedure Pierce Wells MD Work Phone: [facility] Comment on above: Acute cough (Primary Dx); Influenza Start: 12-29-2024 End: 12-29-2024 ambulatory PIERCE WELLS Facility:[facility] Start: 12-15-2024 End: 12-15-2024 Telephone encounter Pierce Wells MD Work Phone: [facility] [place] Comment on above: Medication Problem Start: 09-12-2024 Encounter for genera l adult medical examination without abnormal findings PIERCE WELLS [facility] Start: 09-12-2024 End: 09-12-2024 Patient encounter status Armani Leong REMOTE BROADCAST ENGINEER.GATE TECHNICIAN Work Phone: [facility] Work Phone: Start: 09-12-2024 End: 09-12-2024 Periodic preventive med est patient 40-64yrs Armani Leong REMOTE BROADCAST ENGINEER.GATE TECHNICIAN Work Phone: [facility] [place] Comment on above: Wellness examination (Primary Dx); Essential hypertension; Reactive depression; Benign prostatic hyperplasia with nocturia; Gastroesophageal reflux disease without esophagitis; Encounter for immunization; Screening for colon cancer Start: 09-12-2024 End: 09-12-2024 ambulatory PIERCE WELLS Facility:[facility] Start: 09-05-2024 End: 09-05-2024 Telephone encounter Pierce Wells MD Work Phone: [facility] [place] Comment on above: requesting medicatio n that is Refill Request Start: 08-11-2024 End: 08-11-2024 Refill Pierce Wells MD Work Phone: [address] [place] [address] Comment on above: Refill Request Start: 06-10-2024 Refill Armani TIERNEY RN.GATE TECHNICIAN Work Phone: [facility] Comment on above: Refill Request Start: 05-30-2024 Refill Pierce cole MD Work Phone: [facility] [place] Comment on above: Refill Request Start: 04-22-2024 Refill Armani TIERNEY RN.GATE TECHNICIAN Work Phone: [facility] Comment on above: Refill Request Start: 04-18-2024 Refill Armani TIERNEY RN.GATE TECHNICIAN Work Phone: [facility] [place] Comment on above: Refill Request Start: 04-09-2024 Refill Armani TIERNEY RN.[facility] Work Phone: [facility] Comment on above: Refill Request Start: 03-14-2024 Refill Armani TIERNEY RN.[facility] Work Phone: [facility] Comment on above: Refill Request Start: 03-08-2024 Refill Pierce cole MD Work Phone: [facility] [place] Comment on above: Refill Request Start: 02-09-2024 Refill Pierce cole MD Work Phone: [facility] [place] Comment on above: Refill Request Start: 07-23-2023 End: 07-23-2023 Office outpatient visit 40 minutes Armani Leong APRN.[facility] Work Phone: [facility] Comment on above: Essential hypertensi on (Primary Dx); Reactive depression; Screening for colon cancer; Elevated glucose; Benign prostatic hyperplasia with nocturia; Strain of left shoulder, initial encounter; Musculoskeletal disorder involving upper trapezius muscle; Gastroesophageal reflux disease without esophagitis Start: 05-26-2023 Refill Pierce cole MD Work Phone: [facility] Comment on above: Refill Request Start: 12-12-2022 Refill Pierce cole MD Work Phone: [facility] Comment on above: Refill Request Start: 07-08-2022 Telephone encounter Yaquelin david APRN.GATE TECHNICIAN Work Phone: [facility] Comment on above: Results (Labs ) Start: 07-04-2022 ambulatory Renuka Carr RN NURSE RD LAB TECHNICIAN Comment on above: immunization reactio n Start: 06-12-2022 Telephone encounter Yaquelin david APRN.[facility] Work Phone: [facility] Comment on above: Orders (Needs Lab Or ders) Start: 05-23-2022 Refill Amanda Barrera Work Phone: [facility] Comment on above: Refill Request Start: 05-04-2022 Refill Pierce cole MD Work Phone: [facility] Comment on above: Refill Request Start: 02-01-2022 Refill Armani TIERNEY RN.GATE TECHNICIAN Work Phone: [facility] Comment on above: Refill Request Start: 04-17-2021 End: 04-17-2021 Subsequent hospital visit by physician Xr [facility] [place] Work Phone: Radiology Comment on above: Knee injury, left, i nitial encounter [S89.92XA] Procedures Date Procedure Procedure Detail Performing Clinician Start: 05-16-[address] Pierce Wells MD Work Phone: Start: 03-25-2025 Urnls dip stick/tabl et reagent auto microscopy Dr. Pierce Wells MD Work Phone: Start: 03-25-2025 Iadna-dna/rna gi pth gn multiplex probe tq 6-11 Dr. Pierce Wells MD Work Phone: Start: 03-25-[address] Pierce Wells MD Work Phone: Start: 03-25-2025 Clostridium difficil e detection Dr. Pierce Wells MD Work Phone: Start: 03-25-[address] Pierce Wells MD Work Phone: Start: 03-25-[address] Pierce Wells MD Work Phone: Start: 03-25-2025 Ova OR parasites identification Dr. Pierce Wells MD Work Phone: Start: 03-22-[address] Pierce Wells MD Work Phone: Start: 03-19-2025 Serum inorganic phos phate measurement Dr. Pierce Wells MD Work Phone: Start: 03-19-2025 Plain chest X-ray Dr. Negrita Wells MD Work Phone: Start: 03-18-2025 Urnls dip stick/tabl et reagent auto microscopy Dr. Pierce Wells MD Work Phone: Start: 03-18-2025 CT angiography of ch est with contrast Dr. Pierce Wells MD Work Phone: Start: 03-18-2025 Plain chest X-ray Dr. Negrita Wells MD Work Phone: Start: 03-18-2025 D-dimer assay, quantitative Dr. Pierce Wells MD Work Phone: Comment on above: D-Dimer ELEVATED (>0 .49): Additional studies and clinicalassessments are indicated to conclude diagnosis of:Deep Vein Thrombosis (DVT) or Pulmonary Embolism (PE)CRITICAL VALUE CALLED TO RENUKA KHAN03/18/25 Nelly Dyson.RESULTS READ BACK BY SAME. Start: 03-18-[address] Pierce Wells MD Work Phone: Start: 03-04-[address] Pierce Wells MD Work Phone: Start: 03-03-2025 Serum inorganic phos phate measurement Dr. Pierce Wells MD Work Phone: Start: 03-02-2025 Carbon dioxide measu rement, partial pressure Dr. Pierce Wells MD Work Phone: Start: 03-02-2025 Gases blood o2 satur ation only direct silvia Dr. iPerce Wells MD Work Phone: Start: 03-02-2025 Measurement of parti al pressure of oxygen in blood Dr. Pierce Wells MD Work Phone: Start: 03-02-[address] Pierce Wells MD Work Phone: Start: 03-02-2025 Urnls dip stick/tabl et reagent auto microscopy Dr. Pierce Wells MD Work Phone: Start: 03-02-2025 CT of lower limb with contrast Dr. Pierce Wells MD Work Phone: Start: 03-02-2025 CT angiography of ch est with contrast Dr. Pierce Wells MD Work Phone: Start: 03-02-2025 Plain chest X-ray Dr. Negrita Wells MD Work Phone: Start: 03-02-2025 D-dimer assay, quantitative Dr. Pierce Wells MD Work Phone: Comment on above: D-Dimer ELEVATED (>0 .49): Additional studies and clinicalassessments are indicated to conclude diagnosis of:Deep Vein Thrombosis (DVT) or Pulmonary Embolism (PE)CRITICAL VALUE CALLED TO HJPCFFCUN65/25/25 [facility] [place].RESULTS READ BACK BY SAME. Start: 03-02-[address] Pierce Wells MD Work Phone: Start: 09-12-2024 Lipid 1996 panel - S deepak or Plasma Pierce Wells MD Work Phone: Start: 07-03-2022 Adult depression scr eening assessment Renuka Carr RN Start: 07-03-2022 Lipid 1996 panel - S deepak or Plasma Armani Leong APRN.GATE TECHNICIAN Work Phone: Start: 04-17-2021 Radiologic exam knee complete 4/more views Amanda Goff PA-C Work Phone: Start: 07-22-2018 Adult depression scr eening assessment Armani Leong REMOTE BROADCAST ENGINEER.GATE TECHNICIAN Work Phone: Plan of Treatment Date Care Activity Detail Author Start: 07-03-2032 Urine microalbumin profile [facility] Start: 09-12-2029 Lipid panel Lipid Screening [facility] Start: 09-12-2029 Prostate specific antigen measurement Prostate Cancer Screening Discussion [facility] Start: 05-05-2028 Diabetes Screening Diabetes Screening [facility] Start: 03-30-2028 Diabetes Screening Diabetes Screening [facility] Start: 10-23-2027 Screening for malignant neoplasm of colon [facility] Start: 09-12-2027 Diabetes Screening Diabetes Screening [facility] Start: 07-03-2027 Lipid 1996 panel - Serum or Plasma Lipid Screening [facility] Start: 07-03-2027 Lipid panel Lipid Screening [facility] Start: 07-03-2027 LIPID SCREEN LIPID SCREEN [facility] Start: 07-03-2027 PROSTATE CANCER SCREENING DISCUSSION PROSTATE CANCER SCREENING DISCUSSION [facility] Start: 07-03-2027 Prostate specific antigen measurement Prostate Cancer Screening Discussion [facility] Start: 07-23-2026 Annual PCP Team Chronic Disease Visit Annual PCP Team Chronic Disease Visit [facility] Start: 06-04-2026 Annual PCP Team Chronic Disease Visit Annual PCP Team Chronic Disease Visit [facility] Start: 05-05-2026 Annual PCP Team Chronic Disease Visit Annual PCP Team Chronic Disease Visit [facility] Start: 03-30-2026 Annual PCP Team Chronic Disease Visit Annual PCP Team Chronic Disease Visit [facility] Start: 03-30-2026 BP Controlled (<130/80) BP Controlled (<130/80) [facility] Start: 12-29-2025 Annual PCP Team Chronic Disease Visit Annual PCP Team Chronic Disease Visit [facility] Start: 10-29-2025 End: 10-29-2025 Patient encounter procedure 10/29/2025 11:00 AM EST Office Visit Family [facility] [address] [place] [address] Armani Leong APRN.GATE TECHNICIAN [address] [place] [address] 3 month follow up [facility] [place] Comment on above: 3 month follow up Start: 09-12-2025 Annual PCP Team Chronic Disease Visit Annual PCP Team Chronic Disease Visit [facility] Start: 09-04-2025 End: 09-04-2025 Patient encounter procedure 09/04/2025 9:05 PM EDT Office Visit Neurology [address] [place] [address] [facility] Comment on above: [facility] Start: 08-27-2025 End: 08-27-2025 ambulatory 08/27/2025 9:30 AM EDT OT/PT/Speech Visit [facility] [address] [place] [address] Jennifer Eubanks, PT M54.50,G89.29 (ICD-10-CM) - Chronic right-sided low back pain without sciatica [facility] Comment on above: M54.50,G89.29 (ICD-10-CM) - Chronic righ t-sided low back pain without sciatica Start: 08-20-2025 End: 08-20-2025 ambulatory 08/20/2025 9:30 AM EDT OT/PT/Speech Visit [facility] [address] [place] [address] Jennifer Eubanks, PT M54.50,G89.29 (ICD-10-CM) - Chronic right-sided low back pain without sciatica [facility] Comment on above: M54.50,G89.29 (ICD-10-CM) - Chronic righ t-sided low back pain without sciatica Start: 08-16-2025 End: 08-16-2025 Patient encounter procedure 08/16/2025 11:00 AM EDT Office Visit [facility] [address] [place] [address] Cherri Cerda APRN.[facility] [address] [place] [address] 2 month follow up [facility] Comment on above: 2 month follow up Start: 08-13-2025 End: 08-13-2025 ambulatory 08/13/2025 9:30 AM EDT OT/PT/Speech Visit [facility] [address] [place] [address] Oumou Means, CALLISTHENICS INSTRUCTOR [address] [place] [address] M54.50,G89.29 (ICD-10-CM) - Chronic right-sided low back pain without sciatica [facility] Comment on above: M54.50,G89.29 (ICD-10-CM) - Chronic righ t-sided low back pain without sciatica Start: 08-06-2025 End: 08-06-2025 ambulatory 08/06/2025 4:30 PM EDT OT/PT/Speech Visit [facility] [address] [place] [address] Oumou Means, CALLISTHENICS INSTRUCTOR [address] [place] [address] M54.50,G89.29 (ICD-10-CM) - Chronic right-sided low back pain without sciatica [facility] Comment on above: M54.50,G89.29 (ICD-10-CM) - Chronic righ t-sided low back pain without sciatica Start: 08-06-2025 End: 08-06-2025 Patient encounter procedure 08/06/2025 2:45 PM EDT Office Visit Orthopaedics [address] [place] [address] Ck Chang MD [address] [place] [address] Primary osteoarthritis of both knees [M17.0] Orthopaedics Comment on above: Primary osteoarthritis of both knees [M1 7.0] Start: 07-31-2025 End: 07-31-2025 ambulatory 07/31/2025 11:15 AM EDT OT/PT/Speech Visit [facility] [address] [place] [address] Jennifer Eubanks, PT M54.50,G89.29 (ICD-10-CM) - Chronic right-sided low back pain without sciatica [facility] Comment on above: M54.50,G89.29 (ICD-10-CM) - Chronic righ t-sided low back pain without sciatica Start: 07-25-2025 End: 07-25-2025 ambulatory 07/25/2025 6:00 PM EDT OT/PT/Speech Visit [facility] [address] [place] [address] Jennifer Eubanks, PT M54.50,G89.29 (ICD-10-CM) - Chronic right-sided low back pain without sciatica [facility] Comment on above: M54.50,G89.29 (ICD-10-CM) - Chronic righ t-sided low back pain without sciatica Start: 07-23-2025 End: 07-23-2025 Patient encounter procedure 07/23/2025 10:40 AM EDT Office Visit [facility] [address] [place] [address] Armani Leong APRN.GATE TECHNICIAN [address] [place] [address] 6 week f/u [facility] Comment on above: 6 week f/u Start: 07-18-2025 End: 07-18-2025 ambulatory 07/18/2025 11:15 AM EDT OT/PT/Speech Visit [facility] [address] [place] [address] Jennifer Eubanks, PT Chronic right-sided low back pain without sciatica [facility] Comment on above: Chronic right-sided low back pain withou t sciatica Start: 07-11-2025 End: 07-11-2025 ambulatory 07/11/2025 8:15 AM EDT OT/PT/Speech Visit [facility] [address] [place] [address] Jennifer Eubanks, PT Chronic right-sided low back pain without sciatica [facility] Comment on above: Chronic right-sided low back pain withou t sciatica Start: 07-09-2025 Influenza vaccination [facility] Start: 07-03-2025 DIABETES SCREEN DIABETES SCREEN [facility] Start: 07-03-2025 Diabetes Screening Diabetes Screening [facility] Start: 06-25-2025 Evaluation of diagnostic study results [facility] Start: 06-20-2025 End: 06-20-2025 ambulatory 06/20/2025 7:30 AM EDT OT/PT/Speech Visit [facility] [address] [place] [address] Julio César Salomon, PT Chronic right-sided low back pain without sciatica [M54.50, G89.29] [facility] Comment on above: Chronic right-sided low back pain withou t sciatica [M54.50, G89.29] Start: 06-14-2025 End: 06-14-2025 Patient encounter procedure 06/14/2025 9:00 AM EDT Office Visit [facility] [address] [facility] [address] Cherri Cerda APRN.GATE TECHNICIAN [address] [place] [address] Dx: Chronic right-sided low back pain without sciatica [M54.50, G89.29] [facility] Comment on above: Dx: Chronic right-sided low back pain wi thout sciatica [M54.50, G89.29] Start: 06-04-2025 Evaluation of diagnostic study results [facility] Start: 06-04-2025 End: 06-04-2025 Patient encounter procedure 06/04/2025 8:40 AM EDT Office Visit [facility] [place] [address] [place] [address] Armani Leong, REMOTE BROADCAST ENGINEER.GATE TECHNICIAN [address] [facility] [place] [address] Follow up [facility] [place] Comment on above: Follow up Start: 05-23-2025 Evaluation of diagnostic study results [facility] Start: 05-16-2025 Patient discharge [facility] Start: 05-09-2025 Evaluation of diagnostic study results [facility] Start: 05-05-2025 End: 05-05-2025 Patient encounter procedure 05/05/2025 9:00 AM EDT Office Visit [facility] [place] [address] [place] [address] Pierce Wells MD [address] [facility] [place] [address] 1 month follow up [facility] [place] Comment on above: 1 month follow up Start: 03-30-2025 End: 03-30-2025 Patient encounter procedure 03/30/2025 2:20 PM EDT Office Visit [facility] [address] [place] [address] Pierce Wells MD [address] [place] [address] [facility] follow up 03/02-03/05 shortness of breath [facility] Comment on above: [facility] follow up 03/02-03/05 shortness of b reath Start: 03-25-2025 [facility] Start: 03-25-2025 Enteric precautions [facility] Start: 03-25-2025 Enteric Bacteriology Enteric Bacteriology [facility] Start: 03-25-2025 Ova and Parasites Ova and Parasites [facility] Start: 03-22-2025 Patient discharge [facility] Start: 03-21-2025 [facility] Start: 03-20-2025 [facility] Start: 03-19-2025 Serum inorganic phosphate measurement [facility] Start: 03-19-2025 [facility] [facility] Start: 03-18-2025 Application of intermittent pneumatic compression device [facility] Start: 03-18-2025 Following clinical pathway protocol [facility] Start: 03-18-2025 End: 03-18-2025 [facility] Start: 03-18-2025 Catheterization of vein [facility] Start: 03-18-2025 Oxygen therapy [facility] Start: 03-18-2025 Incentive spirometry [facility] Start: 03-18-2025 Provision of activity privileges [facility] Start: 03-18-2025 Patient referral to dietitian [facility] Start: 03-18-2025 End: 03-18-2025 Referral to service [facility] Start: 03-18-2025 Admission procedure [facility] Start: 03-18-2025 Assessment of risk of venous thromboembolism [facility] Start: 03-18-2025 Insertion of catheter into peripheral vein [facility] Start: 03-18-2025 Measuring intake and output [facility] Start: 03-18-2025 Providing care according to standard [facility] Start: 03-18-2025 Inhalation therapy procedure [facility] Start: 03-18-2025 Respiratory therapy [facility] Start: 03-18-2025 Urinalysis complete panel - Urine [facility] Start: 03-18-2025 Verification routine [facility] Start: 03-18-2025 Hospital admission, emergency, from emergency room, medical nature [facility] Start: 03-18-2025 [facility] Start: 03-18-2025 D-dimer assay, quantitative [facility] Start: 03-18-2025 Serum inorganic phosphate measurement [facility] Start: 03-05-2025 Patient discharge [facility] Start: 03-02-2025 Following clinical pathway protocol [facility] Start: 03-02-2025 Catheterization of vein [facility] Start: 03-02-2025 Oxygen therapy [facility] Start: 03-02-2025 Tobacco use cessation education [facility] Start: 03-02-2025 Admission procedure [facility] Start: 03-02-2025 Assessment of risk of venous thromboembolism [facility] Start: 03-02-2025 Insertion of catheter into peripheral vein [facility] Start: 03-02-2025 Measuring intake and output [facility] Start: 03-02-2025 Providing care according to standard [facility] Start: 03-02-2025 [facility] Start: 03-02-2025 Ambulation without limitation [facility] Start: 03-02-2025 Inhalation therapy procedure [facility] Start: 03-02-2025 End: 03-02-2025 Referral to service [facility] Start: 03-02-2025 Verification routine [facility] Start: 10-11-2024 Screening for malignant neoplasm of colon [facility] Start: 09-12-2024 End: 12-12-2024 Comprehensive metabolic 2000 panel - Serum or Plasma [facility] Comment on above: Expected: 09/12/2024, Expires: Start: 09-12-2024 Depression Screening Depression Screening [facility] Comment on above: Postponed from 1983 (Declined at t his time) Start: 09-12-2024 End: 12-12-2024 Hemoglobin A1c in Blood [facility] Comment on above: Expected: 09/12/2024, Expires: Start: 09-12-2024 End: 12-12-2024 LIPID PANEL, NONFASTING [facility] Work Phone: Comment on above: Expected: 09/12/2024, Expires: Start: 09-12-2024 End: 12-12-2024 PSA/PROSTATE SPECIFIC ANTIGEN SCREENING [facility] Comment on above: Expected: 09/12/2024, Expires: Start: 09-12-2024 End: 09-12-2024 Patient encounter procedure 09/12/2024 1:00 PM EST Office Visit [facility] [place] [address] [facility] [place], [place] [id number] Armani Leong APRN.GATE TECHNICIAN [address] [facility] [place] [address] Yearly/medication follow up [facility] Comment on above: Yearly/medication follow up Start: 07-24-2024 End: 07-24-2024 Patient encounter procedure 07/24/2024 1:40 PM EDT Office Visit [facility] [place] [address] [facility] [place] [address] Yaquelin Ceron, JOELLE.GATE TECHNICIAN [address] [facility] [place] [address] yearly exam [facility] Comment on above: yearly exam Start: 07-23-2024 Annual PCP Team Chronic Disease Visit Annual PCP Team Chronic Disease Visit [facility] Start: 07-09-2024 Covid-19 Vaccine ( season) Covid-19 Vaccine ( season) [facility] Start: 07-09-2024 Influenza vaccination [facility] Start: 11-08-2023 Behavioral Health Screening Behavioral Health Screening [facility] Start: 11-08-2023 zzBehavioral Health Screening zzBehavioral Health Screening [facility] Start: 07-23-2023 End: 09-22-2023 CBC W Auto Differential panel - Blood CBC + DIFF Lab Routine Essential hypertension Expected: 07/23/2023, Expires: 09/22/2023 [facility] Work Phone: Comment on above: Expected: 07/23/2023, Expires: 3 Start: 07-23-2023 End: 09-22-2023 Comprehensive metabolic 2000 panel - Serum or Plasma COMP METABOLIC PANEL Lab Routine Essential hypertension Expected: 07/23/2023, Expires: 09/22/2023 [facility] Work Phone: Comment on above: Expected: 07/23/2023, Expires: 3 Start: 07-23-2023 End: 09-22-2023 Hemoglobin A1c in Blood HGB A1C Lab Routine Elevated glucose Expected: 07/23/2023, Expires: 09/22/2023 [facility] Work Phone: Comment on above: Expected: 07/23/2023, Expires: Start: 07-09-2023 Covid-19 Vaccine () Covid-19 Vaccine () [facility] Start: 07-09-2023 Influenza vaccination [facility] Start: 07-03-2023 Adult depression screening assessment DEPRESSION SCREENING [facility] Start: 07-03-2023 ANNUAL PCP TEAM CHRONIC DISEASE VISIT ANNUAL PCP TEAM CHRONIC DISEASE VISIT [facility] Start: 07-03-2023 COVID-19 VACCINE (#1) COVID-19 VACCINE (#1) [facility] Comment on above: Postponed from 01/27/1966 (Declined at t his time) Start: 07-03-2023 HEPATITIS B (1 of 3 - 3-dose series) HEPATITIS B (1 of 3 - 3-dose series) [facility] Comment on above: Postponed from 1965 (Declined at t his time) Start: 07-03-2023 HEPATITIS C SCREENING HEPATITIS C SCREENING [facility] Comment on above: Postponed from 1983 (Declined at t his time) Start: 07-03-2023 HIV SCREENING HIV SCREENING [facility] Comment on above: Postponed from 1983 (Declined at t his time) Start: 06-01-2023 COLORECTAL CANCER SCREENING COLORECTAL CANCER SCREENING [facility] Start: 06-01-2023 FECAL OCCULT BLOOD FECAL OCCULT BLOOD [facility] Start: 11-08-2022 DEPRESSION ASSESSMENT DEPRESSION ASSESSMENT [facility] Start: 09-07-2022 LIPID SCREEN LIPID SCREEN [facility] Start: 07-09-2022 Influenza vaccination [facility] Start: 07-03-2022 ANNUAL PCP TEAM CHRONIC DISEASE VISIT ANNUAL PCP TEAM CHRONIC DISEASE VISIT [facility] Start: 09-05-2021 DIABETES SCREEN DIABETES SCREEN [facility] Start: 07-09-2021 Influenza vaccination INFLUENZA (#1) [facility] Start: 05-04-2021 Urine microalbumin profile DTAP,TDAP,TD (2 - Td or Tdap) [facility] Start: 2020 PROSTATE CANCER SCREENING DISCUSSION PROSTATE CANCER SCREENING DISCUSSION [facility] Start: 07-22-2019 Adult depression screening assessment DEPRESSION SCREENING [facility] Start: 08-26-2017 Pneumococcal Vaccine: 50+ (2 of 2 - PCV) Pneumococcal Vaccine: 50+ (2 of 2 - PCV) [facility] Start: 2015 SHINGRIX VACCINE (1 of 2) SHINGRIX VACCINE (1 of 2) [facility] Start: 2010 COLOGUARD (FIT-DNA) COLOGUARD (FIT-DNA) [facility] Start: 2010 Colonoscopy COLONOSCOPY [facility] Start: 2010 COLORECTAL CANCER SCREENING COLORECTAL CANCER SCREENING [facility] Start: [address] COLONOGRAPHY [facility] Start: 2010 FECAL OCCULT BLOOD FECAL OCCULT BLOOD [facility] Start: 2010 Screening for malignant neoplasm of colon [facility] Start: 2010 SIGMOIDOSCOPY SIGMOIDOSCOPY [facility] Start: 1984 Hepatitis B Vaccine (1 of 3 - 19+ 3-dose series) Hepatitis B Vaccine (1 of 3 - 19+ 3-dose series) [facility] Start: 1983 BP CONTROLLED (<130/80) BP CONTROLLED (<130/80) [facility] Start: 1983 Depression Screening Depression Screening [facility] Start: 1983 HEPATITIS C SCREENING HEPATITIS C SCREENING [facility] Start: 1983 Hepatitis C screening Hepatitis C Screening [facility] Start: 1983 HIV SCREENING HIV SCREENING [facility] Start: 1983 HIV screening HIV Screening [facility] Start: 1970 COVID-19 VACCINE (#1) COVID-19 VACCINE (#1) [facility] Start: 1970 COVID-19 VACCINE (1) COVID-19 VACCINE (1) [facility] Start: 01-27-1966 COVID-19 VACCINE (#1) COVID-19 VACCINE (#1) [facility] Start: 1965 HEPATITIS B (1 of 3 - 3-dose series) HEPATITIS B (1 of 3 - 3-dose series) [facility] Start: 1965 Hepatitis B Vaccine (1 of 3 - 3-dose series) Hepatitis B Vaccine (1 of 3 - 3-dose series) [facility] Alanine aminotransfe rase [Enzymatic activity/volume] in Serum or Plasma [facility] Albumin [Mass/volume ] in Serum or Plasma [facility] Alkaline phosphatase [Enzymatic activity/volume] in Serum or Plasma [facility] Anion gap in Serum o r Plasma [facility] Basic metabolic 2008 panel with ionized calcium - Serum or Plasma [facility] Bilirubin, total measurement [facility] BUN/Creatinine ratio [facility] Calcium [Mass/volume ] in Serum or Plasma [facility] Carbon dioxide, tota l [Moles/volume] in Central venous blood [facility] Cardioversion [facility] COLOGUARD COLOGUARD Lab [facility] Screening for colon cancer Ordered: 09/12/2024 [facility] Comment on above: Ordered: 09/12/2024 Creatinine [Mass/vol ume] in Serum or Plasma [facility] Erythrocyte mean corpuscular volume determination [facility] Glucose [Mass/volume ] in Serum or Plasma [facility] Hematocrit [Volume Fraction] of Blood [facility] Hemoglobin [Mass/vol ume] in Blood [facility] Hemoglobin.gastroint estin al.lower [Presence] in Stool by Immunoassay FECAL OCCULT BLOOD TEST Lab Routine Screening for colon cancer Ordered: 07/23/2023 [facility] Work Phone: Comment on above: Ordered: 07/23/2023 Leukocytes [#/volume ] in Blood [facility] Magnesium measurement [facility] Mean corpuscular hemoglobin concentration determination [facility] Mean corpuscular hemoglobin determination [facility] Measurement of renal function [facility] Natriuretic peptide. B prohormone N-Terminal [Mass/volume] in Serum or Plasma [facility] Neutrophil count [facility] Neutrophil percent differential count [facility] NM Heart Views W str ess and W radionuclide IV [facility] Nucleic acid assay [facility] Ova OR parasites identification [facility] Patient Education [facility] Work Phone: Patient referral [facility] Work Phone: Platelets [#/volume] in Blood [facility] End: 06-18-2026 Polysomnogram POLYSOMNOGRAM (PSG) Procedures Routine Heart failure, unspecified HF chronicity, unspecified heart failure type (HCC) Atrial fibrillation, unspecified type (HCC) Snoring Fatigue, unspecified type 1 Occurrences starting 06/18/2025 until 06/18/2026 [facility] Work Phone: Comment on above: 1 Occurrences starting 06/18/2025 until 06/18/2026 Potassium measurement [facility] Red blood cell count [facility] Red cell distributio n width determination [facility] Serum chloride measurement [facility] Sodium measurement [facility] Total protein measurement [facility] Troponin T.cardiac [Mass/volume] in Serum or Plasma by High sensitivity method [facility] Troponin T.cardiac [Mass/volume] in Serum or Plasma by High sensitivity method [facility] Urea nitrogen [Mass/volume] in Serum or Plasma [facility] End: 08-22-2026 XR Knee - bilateral 4 Views XR KNEE GENERAL 4V AP BOTH/PA BOTH/LAT/MERC BILATERAL Radiology Routine Primary osteoarthritis of both knees 1 Occurrences starting 07/23/2025 until 08/22/2026 [facility] Work Phone: Comment on above: 1 Occurrences starting 07/23/2025 until 08/22/2026 XR Knee - bilateral 4 Views XR KNEE GENERAL 4V AP BOTH/PA BOTH/LAT/MERC BILATERAL Radiology Routine Primary osteoarthritis of both knees 07/23/2025 11:39 AM EDT [facility] End: 07-04-2026 XR Lumbar spine 3 Views XR LUMBAR GENERAL 3V AP/LAT/L5-S1 Radiology Routine Chronic right-sided low back pain without sciatica 1 Occurrences starting 06/04/2025 until 07/04/2026 [facility] Work Phone: Comment on above: 1 Occurrences starting 06/04/2025 until 07/04/2026 XR Lumbar spine 3 Views XR LUMBA R GENERAL 3V AP/LAT/L5-S1 Radiology Routine Chronic right-sided low back pain without sciatica 06/04/2025 9:19 AM EDT [facility] Immunizations Immunization Date Immunization Notes Care Provider Zane berry 09-12-2024 influenza, injectabl e, quadrivalent, preservative free Dr. Pierce Wells MD Work Phone: [facility] 09-12-2024 influenza, seasonal, injectable Armani Salo REMOTE BROADCAST ENGINEER.GATE TECHNICIAN Work Phone: [facility] 09-12-2024 influenza virus vacc ine, unspecified formulation Jennifer Timmons RN [facility] 07-03-2022 tetanus toxoid, redu pasquale diphtheria toxoid, and acellular pertussis vaccine, adsorbed Renuka Carr RN [facility] 09-27-2019 influenza, injectabl e, quadrivalent, preservative free Dr. Pierce Wells MD Work Phone: [facility] 09-27-2019 influenza, seasonal, injectable, preservative free Armani Salo REMOTE BROADCAST ENGINEER.GATE TECHNICIAN Work Phone: [facility] 09-27-2019 influenza virus vacc ine, unspecified formulation Armani Salo REMOTE BROADCAST ENGINEER.GATE TECHNICIAN Work Phone: [facility] 08-07-2018 influenza, injectabl e, quadrivalent, contains preservative Ramani Salo REMOTE BROADCAST ENGINEER.GATE TECHNICIAN Work Phone: [facility] 11-13-2017 influenza, injectabl e, quadrivalent, contains preservative Armani Salo REMOTE BROADCAST ENGINEER.GATE TECHNICIAN Work Phone: [facility] 08-26-2016 influenza, injectabl e, quadrivalent, preservative free Armani Salo REMOTE BROADCAST ENGINEER.GATE TECHNICIAN Work Phone: [facility] 08-26-2016 influenza, seasonal, injectable Armani Salo REMOTE BROADCAST ENGINEER.GATE TECHNICIAN Work Phone: [facility] 08-26-2016 pneumococcal polysaccharide vaccine, 23 valent Armani Salo REMOTE BROADCAST ENGINEER.GATE TECHNICIAN Work Phone: [facility] 09-10-2015 influenza, injectabl e, quadrivalent, contains preservative Armani Salo REMOTE BROADCAST ENGINEER.GATE TECHNICIAN Work Phone: [facility] 08-10-2014 influenza, seasonal, injectable Armani Salo REMOTE BROADCAST ENGINEER.GATE TECHNICIAN Work Phone: [facility] 11-03-2011 influenza virus vacc ine, unspecified formulation Armani Salo REMOTE BROADCAST ENGINEER.GATE TECHNICIAN Work Phone: [facility] 05-04-2011 tetanus toxoid, redu pasquale diphtheria toxoid, and acellular pertussis vaccine, adsorbed Armanibenjamin Leong REMOTE BROADCAST ENGINEER.GATE TECHNICIAN Work Phone: [facility] 11-08-2005 tetanus and diphther ia toxoids, adsorbed, preservative free, for adult use (2 Lf of tetanus toxoid and 2 Lf of diphtheria toxoid) Armani Leong REMOTE BROADCAST ENGINEER.GATE TECHNICIAN Work Phone: [facility] Work Phone: Payers Date Payer Category Payer Unknown [id number] 2025 Medicaid [id number] 2025 Self-pay 2025 Unknown [id number] 2024 Private Health Insurance [id number] 2024 Unknown [id number] 2024 Unknown [id number] 2023 Unknown [id number]. [id number] 2021 Medicaid [employer] [place] [place] [id number] 2021-Present [id number] [place] [id number] Medicaid [id number] 2021 Medicaid [id number] 2017 Unknown [facility] [id number] Unknown [id number] [id number]. 462 Unknown [id number] 2.16.840.1.436881.3.579.2. 462 Unknown [id number] 2.16.840.1.978003.3.579.2. 462 Unknown [id number] 2.16.840.1.836630.3.579.2. 462 Unknown [id number] 2.16.840.1.319593.3.579.2. 462 Unknown [id number] 2.16.840.1.506161.3.579.2. 462 Unknown [id number] 2.16.840.1.586422.3.579.2. 462 Unknown [id number] 2.16.840.1.393991.3.579.2. 462 Unknown [id number] 2.16.840.1.192019.3.579.2. 462 Unknown [id number] 2.16.840.1.210529.3.579.2. 462 Unknown [id number] 2.16.840.1.151297.3.579.2. 462 Unknown [id number] 2.16.840.1.622890.3.579.2. 462 Unknown [id number] 2.16.840.1.166783.3.579.2. 462 Unknown [id number] 2.16.840.1.282156.3.579.2. 462 Unknown [id number] 2.16.840.1.519738.3.579.2. 462 Unknown [id number] 2.16.840.1.670365.3.579.2. 462 Unknown [id number] 2.16.840.1.781692.3.579.2. 462 Unknown [id number] 2.16840.1.369194.3.579.2. 462 Unknown [id number] 2.16840.1.572371.3.579.2. 462 Unknown [id number] 2.16840.1.189600.3.579.2. 462 Unknown [id number] [id number]. 462 Social History Date Type Detail Facility Start: 06-01-2011 End: 07-03-2022 Tobacco smoking status NHIS Never smoked tobacco [facility] Start: 06-01-2011 End: 07-03-2022 Tobacco use and exposure Former smokeless tobacco user [facility] End: 10-19-2010 History of tobacco use Chews Tobacco [facility] Start: 10-28-2021 End: 07-23-2025 Alcohol intake Current non-drinker of alcohol (finding) [facility] Start: 09-20-2015 End: 07-03-2022 Tobacco Comment Quit chewing 5years [facility] Start: 1965 Sex Assigned At Not on file [facility] Start: 03-18-2021 End: 07-03-2022 Exposure to SARS-CoV-2 (event) Not sure [facility] Work Phone: Start: 07-02-2022 History SDOH Alcohol Frequency 2 [facility] Start: 07-02-2022 History SDOH Alcohol Std Drinks 1 [facility] Start: 07-02-2022 History SDOH Social Connections Living 3 [facility] Start: 07-02-2022 End: 07-23-2023 History of Social function [facility] Start: 07-02-2022 End: 07-23-2023 Social connection and isolation [facility] Do you belong to any clubs or organizations such as alevism groups, unions, fraternal or athletic groups, or school groups? No [facility] Are you now , , , , never or living with a partner? [facility] How often to you hav e a drink containing alcohol? Monthly or less [facility] How many standard dr inks containing alcohol do you have on a typical day? 1 or 2 [facility] How often do you hav e 6 or more drinks on 1 occasion? Never [facility] How hard is it for y ou to pay for the very basics like food, housing, medical care, and heating Hard [facility] Do you feel stress - tense, restless, nervous, or anxious, or unable to sleep at night because your mind is troubled all the time - these days [OSQ] Only a little [facility] (I/We) worried jorge luis er (my/our) food would run out before (I/we) got money to buy more. Never true [facility] The food that (I/we) bought just didn't last, and (I/we) didn't have money to get more. Sometimes true [facility] Start: 10-09-2012 In the past 12 months, has lack of transportation kept you from medical appointments or from getting medications? No [facility] In the past 12 month s, was there a time when you were not able to pay the mortgage or rent on time? Yes [facility] Start: 09-27-2019 Occasional Occasional [facility] Start: 09-27-2019 None None [facility] Start: 11-30-2019 Spouse/ Significant Other Spouse/ Significant Other [facility] Start: 09-27-2019 Non-smoker Non-smoker [facility] Start: 03-05-2025 Sex Male (finding) [facility] Start: 1965 Sex Assigned At Male [facility] How hard is it for y ou to pay for the very basics like food, housing, medical care, and heating Somewhat hard [facility] Do you feel stress - tense, restless, nervous, or anxious, or unable to sleep at night because your mind is troubled all the time - these days [OSQ] To some extent [facility] Goals Date Patient Goal Desired Activity /State Functional Status Date Assessment Result Facility 03-29-2025 Total score [AUDIT-C] 0 03/29/20 7:42 PM EDT User, Gabbie [facility] 03-29-2025 How often to you hav e a drink containing alcohol? Never 03/29/2025 7:42 PM EDT User, Jessicat Never [facility] 03-29-2025 Functional status Patient does n ot drink 03/29/2025 7:42 PM EDT User, Sandrinejefferson Patient does not drink [facility] 03-29-2025 How often do you hav e 6 or more drinks on 1 occasion? Never 03/29/2025 7:42 PM EDT User, Gabbie Never [facility] 03-22-2025 Functional status Ambulates;Chair [facility] Work Phone: 03-05-[address] [facility] Work Phone: 06-14-2015 Are you deaf, or do you have serious difficulty hearing No 06/14/2015 4:38 PM EDT Rocio Marie LPN No [facility] 06-14-2015 Are you blind, or do you have serious difficulty seeing, even when wearing glasses No 06/14/2015 4:38 PM Rocio Martínez LPN No [facility] 06-14-2015 Do you have serious difficulty walking or climbing stairs No 06/14/2015 4:38 PM Rocio Martínez LPN No [facility] 06-14-2015 Do you have difficul ty dressing or bathing No 06/14/2015 4:38 PM Rocio Martínez LPN No [facility] 06-14-2015 Because of a physica l, mental, or emotional condition, do you have difficulty doing errands alone such as visiting a physician's office or shopping No 06/14/2015 4:38 PM Rocio Martínez LPN No [facility] Mental Status Date Assessment Result Facility 03-22-2025 Cognitive function Voice/Name [facility] Work Phone: 03-18-2025 Cognitive function Level Of Cons ciousness Awake;Alert;Appropriate;Fol lows Commands [facility] Work Phone: 03-05-2025 Cognitive function Voice/Name [facility] Work Phone: 06-14-2015 Because of a physica l, mental, or emotional condition, do you have serious difficulty concentrating, remembering, or making decisions No 06/14/2015 4:38 PM EDT Frank Rocio HANNA No [facility] Clinical Notes 01-01-2011 to 07-31-2025 Telephone Encounter - Bill Andradein, HOOK TENDER - 07/23/2025 1:08 PM EDTTelephone Encounter - Muna Andrade, HOOK TENDER - 07/23/2025 1:08 PM EDTGAruna lozoya RT(R) - 07/23/2025 11:20 AM EDT Note Date & Type Note Facility 07-31-2025 Note HNO ID: [id number] Author: JENNIFER EUBANKS, PT Service: ? Author Type: Physical Therapist Type: Progress Notes Filed: 07/31/2025 11:58 Note Text: Episode Visit Count: 2 Therapist That Will Accept/Oversee The Plan Of Care: Jennifer Eubanks Start of Care Date: 07/18/25 Onset Date: -- ("ever since my late 20's") Plan of Care Certification Date: 07/18/25 Next Certification Due Date: 08/29/25 REHABILITATION AND SPORTS THERAPY PHYSICAL THERAPY TREATMENT NOTE ASSESSMENT: José Miguel Young Sr. tolerated the session with fatigue and expected muscle soreness. He demonstrated improvements in B knee pain with TA activation while walking with rollator. The patient will continue to benefit from ongoing skilled physical therapy to progress toward set goals. PLAN FOR NEXT VISIT: standing hoist machine, HEP paloff press SUBJECTIVE: Back is still painful but not as bad. Pt. brought his rollator with him this visit. Patient Goals: reduce LBP Pain: Pain Pain Level: 6 Pain Location: Low Back/Lumbar Spine- Midline Description: Aching Frequency: With movement Post Treatment Pain Post Treatment Pain Level: 7 Post Treatment Pain Location: Low Back/Lumbar Spine- Midline Post Treatment Pain Description: Aching OBJECTIVE MEASURES WITH LEVEL OF FUNCTION: TREATMENT: Therapeutic Exercise: 1: scifit stepper seat 16, level 2, 5 min, 1:1 throughout subjective collected 2: standing in rollator TA activation 2x10, 5 sec hold 3: standing in rollator quad sets 2x10, 5 sec hold 4: seated TA activation 65 cm physioball 10x10 sec hold Skilled Intervention: Skilled judgment was used in selection of appropriate interventions. Provided written instruction for home exercise program to facilitate proper performance and compliance. Correct performance of therapeutic exercises was facilitated with verbal, visual, and tactile cuing. Educated patient on rationale for performing exercises in regards to decreasing fatigue , including balance, increase ease of ADL, and ROM and function . Gait Training: Distance (feet): 80 6x Gait Cues: activate TA Assistive Device: rollator Assist Level: supervision, verbal cues Skilled Intervention: Patient was provided supervision during pre-gait/gait training to prevent falls and insure safety. Facilitated proper gait cycle with the use of verbal, visual, and tactile cues for correction of gait deviations identified in the objective section above. [facility] Management: 1: taught pt. how to lock rollator Skilled Intervention: Skilled judgment in the selection of proper modification for activity of daily living/home management based on clinical presentation, deficits, and needs. Provided written instruction for activities of daily living techniques to facilitate proper performance and compliance. Reviewed patient specific diagnosis in relation to activities of daily living/home management. Activity progression based on professional judgement. Provided written instruction for home program to facilitate proper performance and compliance. Correct performance of home program was facilitated with verbal, visual, and tactile cueing. Billing Therapeutic Exercise Treatment Minutes: 25 Self-Care/Home Management Treatment Minutes: 1 Gait Training Treatment Minutes: 14 Skilled Treatment Time Minutes (timed and untimed codes): 40 Total Session Time (minutes): 40 Session Start Time : 1107 Session Stop Time : 1147 Jennifer Eubanks, PT [facility] 07-23-2025 Telephone encounter Note Patient reports struggling with being able to eat fruit and vegetables due to cost. Patient notes that he has not been able to work the past 5 months due to health issues. Reports that he does receive food stamps, but tries to make those last by eating foods that are not fresh. Sw notes that she has [employer] with food resources. Cordelia also will see if [facility] on [employer] still has discount [employer] coupons. Patient turns 60 next week. Cordelia will compile information and mail to patient home. [facility] 07-23-2025 Miscellaneous Notes Patient reports struggling with being able to eat fruit and vegetables due to cost. Patient notes that he has not been able to work the past 5 months due to health issues. Reports that he does receive food stamps, but tries to make those last by eating foods that are not fresh. Sw notes that she has [facility] with food resources. Cordelia also will see if [facility] on [employer] [address] [employer] still has discount [employer] coupons. Patient turns 60 next week. Sw will compile information and mail to patient home. documented in this encounter [facility] 07-23-2025 History of Presen t illness Narrative Radiology Service Progress Note PATIENT NAME: José Miguel Young Sr. DATE OF SERVICE: July 23, 2025 TIME: 11:19 AM PATIENT IDENTITY VERIFICATION COMPLETED USING TWO (2) IDENTIFIERS: Name and Date of confirmed by patient verbally. FALL SCREENING: Has the patient had 2 falls in the last year or 1 fall with injury or currently using an Ambulatory Assistive Device (Walker, Cane, Wheelchair, Crutches, etc.)? No PATIENT GENDER DATA: Assigned male at PATIENT RELEVANT IMPLANT DATA REVIEWED: Yes PATIENT PRESENTS WITH AN IMPLANTABLE OR ATTACHED TRAWL NET MAKER: No RADIOLOGY DEPARTMENT: General X-ray: Exam(s) Completed: Lower Extremity X-Ray(s): Knee, AP / Lat / Tunne / Merchant Bilateral PERIPHERAL IV DATA: Not applicable SIGNED BY: RT Klarissa(R) July 23, 2025 11:19 AM documented in this encounter [facility] 07-23-2025 Note HNO ID: [id number] Author: ARUNA BINGHAM RT(R) Service: ? Author Type: Technologist Type: Progress Notes Filed: 07/23/2025 11:40 Note Text: Radiology Service Progress Note PATIENT NAME: José Miguel GRAMAJON: [id number] DATE OF SERVICE: July 23, 2025 TIME: 11:19 AM PATIENT IDENTITY VERIFICATION COMPLETED USING TWO (2) IDENTIFIERS: Name and Date of confirmed by patient verbally. FALL SCREENING: Has the patient had 2 falls in the last year or 1 fall with injury or currently using an Ambulatory Assistive Device (Walker, Cane, Wheelchair, Crutches, etc.)? No PATIENT GENDER DATA: Assigned male at PATIENT RELEVANT IMPLANT DATA REVIEWED: Yes PATIENT PRESENTS WITH AN IMPLANTABLE OR ATTACHED TRAWL NET MAKER: No RADIOLOGY DEPARTMENT: General X-ray: Exam(s) Completed: Lower Extremity X-Ray(s): Knee, AP / Lat / Tunne / Merchant Bilateral PERIPHERAL IV DATA: Not applicable SIGNED BY: RT Klarissa(R) July 23, 2025 11:19 AM [facility] 07-23-2025 History of Presen t illness Narrative Chief Complaint Patient presents with: Follow Up: 6 week follow up HPI José Miguel Young Sr. is a 59 year old male who presents here today for above reason. José Miguel Young is a 59-year-old male with a history of bilateral knee pain and depression, presenting for follow-up. José Miguel reports worsening bilateral knee pain, which he attributes to a change in medication from ibuprofen to Tylenol. He notes that ibuprofen previously managed his pain effectively, but Tylenol does not provide the same relief. He also mentions that his knees began hurting more after fluid was removed from them. He describes his knees as making noise when he walks and states that they "seem to be very nice to move off of him." He has been performing exercises recommended by his physical therapist, Jennifer, but continues to experience pain. José Miguel also reports that his depression has improved slightly since his Lexapro dosage was increased from 10 mg to 20 mg and Wellbutrin 150 mg was added once daily, but he still struggles with his mood. He mentions financial difficulties and challenges with maintaining a healthy diet, which he believes contribute to his depression. He has lost 6 lbs, bringing his weight down to 319 lbs, but finds it difficult to afford healthy food options. He reports that his sleep has improved, stating, "I've been sleeping. I got up once last night." José Miguel also mentions that his blood pressure has been elevated, with a recent reading of 142/70 mmHg. He notes that his blood pressure was better controlled when he was eating a healthier diet, with readings around 127-130 mmHg. He finds it challenging to maintain a healthy diet due to financial constraints and reports that his blood pressure increases when he consumes high-sodium foods. He can tell when his blood pressure is elevated because he feels tight to come. Past medical history, appointments, medications, allergies reviewed. EXAM: BP 140/88 Pulse 69 Resp 18 Wt (!) 147.8 kg (325 lb 12.8 oz) SpO2 95% BMI 50.27 kg/m General Appearance: Well appearing, alert, in no acute distress, well-hydrated, well nourished. and Obese. Lungs: Lungs clear to auscultation. No wheezing, rhonchi, rales.. Heart: RRR without murmur, gallop, or rubs. No ectopy. Musculoskeletal: bilat knees: exam difficult due to patient's immobility; grinding present in both knees (right greater than left) with flexion and extension. . Assessment and Plan 1. Chronic bilateral low back pain without sciatica (M54.50) 2. Primary osteoarthritis of both knees (M17.0) Chronic bilateral low back pain and knee osteoarthritis with worsening symptoms since transition from ibuprofen to Tylenol. Reviewed 2020 knee X-rays showing marked degenerative changes and loose bodies. - Order updated bilateral knee X-rays. - Refer to orthopedics for evaluation and possible intra-articular corticosteroid injections. - Continue Tylenol for pain management. - Follow-up in 3 months. 3. 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 - Increase Wellbutrin to 300 mg daily (extended-release); instructed patient that tablets may be taken together or divided between morning and evening. - Follow-up in 3 months. 4. Essential hypertension (I10) Blood pressure readings range from 127/70 to 142/80; dietary challenges noted. - Continue current antihypertensive regimen. - Advised patient to avoid high-sodium foods such as hot dogs and pasta. - Follow-up in 3 months. 5. Food insecurity (Z59.41) Patient reports difficulty affording healthy food options. - Refer to social work for assistance with food insecurity. Armani Lenog APRN.CNP RTO in 3 months, sooner if needed. This note was partly generated using [employer] voice recognition dictation and may contain some misspelled or inaccurate words missed on review. Recording using [employer] software for draft documentation of the visit was discussed with the patient/authorized service center representative; all questions welcomed and answered. Patient/authorized service center representative agreed to proceed documented in this encounter [facility] 07-23-2025 Note HNO ID: [id number] Author: ARMANI LEONG APRN.CNP Service: ? Author Type: Nurse Practitioner Type: Progress Notes Filed: 07/23/2025 11:03 Note Text: Chief Complaint Patient presents with: Follow Up: 6 week follow up HPI José Miguel Young Sr. is a 59 year old male who presents here today for above reason. José Miguel Young is a 59-year-old male with a history of bilateral knee pain and depression, presenting for follow-up. José Miguel reports worsening bilateral knee pain, which he attributes to a change in medication from ibuprofen to Tylenol. He notes that ibuprofen previously managed his pain effectively, but Tylenol does not provide the same relief. He also mentions that his knees began hurting more after fluid was removed from them. He describes his knees as making noise when he walks and states that they "seem to be very nice to move off of him." He has been performing exercises recommended by his physical therapist, Jennifer, but continues to experience pain. José Miguel also reports that his depression has improved slightly since his Lexapro dosage was increased from 10 mg to 20 mg and Wellbutrin 150 mg was added once daily, but he still struggles with his mood. He mentions financial difficulties and challenges with maintaining a healthy diet, which he believes contribute to his depression. He has lost 6 lbs, bringing his weight down to 319 lbs, but finds it difficult to afford healthy food options. He reports that his sleep has improved, stating, "I've been sleeping. I got up once last night." José Miguel also mentions that his blood pressure has been elevated, with a recent reading of 142/70 mmHg. He notes that his blood pressure was better controlled when he was eating a healthier diet, with readings around 127-130 mmHg. He finds it challenging to maintain a healthy diet due to financial constraints and reports that his blood pressure increases when he consumes high-sodium foods. He can tell when his blood pressure is elevated because he feels tight to come. Past medical history, appointments, medications, allergies reviewed. EXAM: BP 140/88 Pulse 69 Resp 18 Wt (!) 147.8 kg (325 lb 12.8 oz) SpO2 95% BMI 50.27 kg/m? General Appearance: Well appearing, alert, in no acute distress, well-hydrated, well nourished. and Obese. Lungs: Lungs clear to auscultation. No wheezing, rhonchi, rales.. Heart: RRR without murmur, gallop, or rubs. No ectopy. Musculoskeletal: bilat knees: exam difficult due to patient's immobility; grinding present in both knees (right greater than left) with flexion and extension. . Assessment and Plan 1. Chronic bilateral low back pain without sciatica (M54.50) 2. Primary osteoarthritis of both knees (M17.0) Chronic bilateral low back pain and knee osteoarthritis with worsening symptoms since transition from ibuprofen to Tylenol. Reviewed 2020 knee X-rays showing marked degenerative changes and loose bodies. - Order updated bilateral knee X-rays. - Refer to orthopedics for evaluation and possible intra-articular corticosteroid injections. - Continue Tylenol for pain management. - Follow-up in 3 months. 3. 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 - Increase Wellbutrin to 300 mg daily (extended-release); instructed patient that tablets may be taken together or divided between morning and evening. - Follow-up in 3 months. 4. Essential hypertension (I10) Blood pressure readings range from 127/70 to 142/80; dietary challenges noted. - Continue current antihypertensive regimen. - Advised patient to avoid high-sodium foods such as hot dogs and pasta. - Follow-up in 3 months. 5. Food insecurity (Z59.41) Patient reports difficulty affording healthy food options. - Refer to social work for assistance with food insecurity. Armani Leong APRN.GATE TECHNICIAN RTO in 3 months, sooner if needed. This note was partly generated using Dragon voice recognition dictation and may contain some misspelled or inaccurate words missed on review. Recording using ambient [facility] software for draft documentation of the visit was discussed with the patient/authorized service center representative; all questions welcomed and answered. Patient/authorized service center representative agreed to proceed [facility] 07-18-2025 History of Presen t illness Narrative Program_ID:[id number] Access Code: [email or web address] URL: [email or web address] Date: 07-18-2025 Prepared By: Jennifer Eubanks Program Notes Exercises - Seated Lumbar Flexion Stretch - 2-3 x daily - 7 x weekly - 4 sets - 10 reps - Seated Transversus Abdominis Bracing - 2-3 x daily - 7 x weekly - 4 sets - 10 reps - Seated Side Stretch - 2-3 x daily - 7 x weekly - 3 sets - 1 reps Images from the original note were not included. Episode Visit Count: 1 Therapist That Will Accept/Oversee The Plan Of Care: Jennifer Eubanks Start of Care Date: 07/18/25 Onset Date: -- ("ever since my late 20's") Plan of Care Certification Date: 07/18/25 Next Certification Due Date: 08/29/25 Patient Identified by Name and Date of : Yes REHABILITATION AND SPORTS THERAPY PHYSICAL THERAPY EVALUATION PLAN OF CARE: Assessment: José Miguel Young Sr. presents with diagnosis of chronic right-sided low back pain without sciatica that interferes with walking, standing, sitting, rising from a chair . The patient presents with impairments in ADL's, balance, flexibility, gait, independence in exercise, joint mobility, overall function, patient reported outcome measures, posture, range of motion, strength, symptom management, and tissue tenderness. PROMIS (Patient-Reported Outcomes Measurement Information System) scores were reviewed and identified as a rehabilitation concern. Prognosis for therapy is Fair due to: chronic nature of impairments, clinical presentation, multiple co- morbidities, limited tolerance to activity . The patient will benefit from skilled therapy services to meet the goals established for this plan of care as noted below. Classification Pain Mechanism Classification: Nociceptive Low Back Pain Classification: Symptom Modulation Goals for Episode of Care: established 07/18/25 Independent in home exercises. Patient will decrease pain to 1-2/10 with functional activities to allow patient to improve ambulation, transfers, and standing tolerance for ADLs. Restore pain-free lumbar ROM to minimal to moderate limitation without increased symptoms flexion and extension to allow for transitional movements. Stand / Walk 15-20 minutes without increased pain/symptoms. Sit 1 hours without pain/symptoms to allow for seated activities. Patient Goals: reduce LBP Time Frame for Goals and Treatment : 08/29/25 Planned Interventions, Frequency, and Duration: Current Frequency: 1x/week Duration: 6 weeks Total Number of Visits Planned: 6 Planned Treatment Interventions: Therapeutic exercise (41911), Neuromuscular re-education (87251), Manual therapy (08469), Therapeutic activities (34497), Self-jail management (51398), Gait Training (92679) PLAN FOR NEXT VISIT: Core activation standing in rollator, pt. instructed to bring it with him next visit. Patient demonstrates good understanding of plan of care and treatment. The above goals and plan of care were discussed and agreed upon by patient/family. SUBJECTIVE: for LBP that onset in pt. late 20's without specfic injury. Mentions B knee pain due to injuries but no hx of surgery. Only tolerates about 10 min of sitting and standing for 10 minutes. Difficulty with walking and standing upright. Leaning forward reduces symptoms. Lost his 22 yo daughter in a car accident years ago. Patient Goals: reduce LBP Functional Limitations: walking, standing, sitting, rising from a chair Prior Level of Function: Independent without limitations Intake Information: Prescription present Falls Interview: No positive findings with falls interview Red Flags Vertebral Fracture Clinical Reasoning: No identified risk factors Abdominal Aortic Aneurysm Clinical Reasoning: No identified risk factors. Cancer Red Flags: Age >50 or <20 Cancer Clinical Reasoning: Proceed with caution Infection Clinical Reasoning: No identified risk factors. Cauda Equina Syndrome Clinical Reasoning: No identified risk factors. Red Flags - Cervical Cancer Red Flags: Age >50 or <20 Cancer Clinical Reasoning: Proceed with caution Infection Clinical Reasoning: No identified risk factors. Spine History Symptoms Location at Onset: Back Symptoms Since Onset: Worsening Pain is Worse Always: Standing, Walking, Prolonged positions, Sitting Pain is Better Always: Bending Pain: Pain Pain Level: 8 Pain Location: Low Back/Lumbar Spine- Midline Description: Aching Frequency: With movement Post Treatment Pain Post Treatment Pain Level: 9 Post Treatment Pain Location: Low Back/Lumbar Spine- Midline Post Treatment Pain Description: Aching PROMIS Scales 07/04/2025 Higher is Better Self-Eff Symptom - T Score 32 (Low) Self-Eff Symptom - Percentile 4 07/04/2025 Lower is Better Pain Interference - T Score 72 (severe) Pain Interference - Percentile 1 T-Score and Percentile Interpretation T-scores: mean of general population = 50. 5 points is clinically meaningfully difference Percentiles provide an indication of how the patient's score ranks in relation to the general population. Higher percentile rankings indicate better function/quality of life. 50th percentile is the average of the general population and indicates half of respondents had a worse score. OBJECTIVE MEASURES WITH LEVEL OF FUNCTION: Posture / Alignment Posture: Decreased lumbar lordosis Sensation - Lumbar Sensation: Grossly Intact Lumbar Spine AROM Lumbar Flexion: Moderate limitation, Decreased pain (becomes more painful toward endrange) Lumbar Extension: Major limitation, Produces Repeated Test Movements - Lumbar Other Lumbar Repeated Test Movements: Yes Other Repeated Test Movements - Lumbar RFISit / Symptoms During: decreases RFISit / Symptoms After: better Static Testing - Lumbar Stand Slouched: better Stand Erect: worse Gait Gait: Independent Gait Distance (feet): 50 Gait Device: None Gait Deviations: General Deviations General Deviations/Observations: Shuffling Gait, Step length decreased, Trunk Control Decreased, Wide base of support, Non-functional gait speed, Flexed trunk posture, Lateral sway increased, Antalgic gait Education: Education Learning Preferences: Demonstration, Explanation, Performance, Printed Materials Barriers: Low activity tolerance/endurance, Pain level Learning/educational needs: Plan of Care, Home exercise program, Gait Training Education Provided: Yes, see treatment interventions for education provided Education Provided To: Patient Education Mode/Type: Demonstration, Explanation/Discussion, Literature/Printed Materials, Performance Response to Education/Teach Back: States/Identifies, Return Demonstration TREATMENT: PT Treatment Interventions: Therapeutic Exercise, Self-[facility] Management, Neuromuscular Re-Education, Therapeutic Activity Evaluation Therapeutic Exercise: 1: *Access Code: [email or web address] URL: [email or web address] [facility] Date: 07/18/2025 Prepared by: Jennifer Triana Exercises - Seated Lumbar Flexion Stretch - 2-3 x daily - 7 x weekly - 4 sets - 10 reps - Seated Transversus Abdominis Bracing - 2-3 x daily - 7 x weekly - 4 sets - 10 reps - 1 hold - Seated Side Stretch - 2-3 x daily - 7 x weekly - 3 sets - 1 reps - 30 hold 2: hook lying attempted TA -- dc due to pain 3: attempted hook lying KTC 1x30 sec each side - dc due to pain Skilled Intervention: Patient was educated in proper exercise technique and purpose for exercises. Skilled judgment was used in selection of appropriate interventions. Provided written instruction for home exercise program to facilitate proper performance and compliance. Correct performance of therapeutic exercises was facilitated with verbal, visual, and tactile cuing. Educated patient on rationale for performing exercises in regards to decreasing fatigue , including balance, increase ease of ADL, and ROM and function . Patient education as noted. Therapeutic Activity: 1: log roll supine <> sitting with verbal cues, 1x each Skilled Intervention: Proper patient guarding to prevent falls/increase patient safety with supervision to assist patient while performing supine <> sitting EOB. Activity progression based on professional judgment. Assisted proper completion of task with verbal, visual, and tactile cueing and correction of abnormal movement patterns. [facility] Management: 1: advised use of rollator 2: discussed directional preference and biomechanics of lumbar flexion based exercises Skilled Intervention: Skilled judgment in the selection of proper modification for activity of daily living/home management based on clinical presentation, deficits, and needs. Provided written instruction for activities of daily living techniques to facilitate proper performance and compliance. Reviewed patient specific diagnosis in relation to activities of daily living/home management. Activity progression based on professional judgement. Reviewed and educated patient on additions/changes for home program as noted above with an (*). Billing * Evaluation Low Complexity: 1 Unit Therapeutic Exercise Treatment Minutes: 10 Therapeutic Activity Treatment Minutes: 5 Self-Care/Home Management Treatment Minutes: 10 Skilled Treatment Time Minutes (timed and untimed codes): 40 Total Session Time (minutes): 40 Session Start Time : 1107 Session Stop Time : 1147 Jennifer Eubanks PT documented in this encounter [facility] 07-18-2025 Note HNO ID: [id number] Author: JENNIFER EUBANKS, PT Service: ? Author Type: Physical Therapist Type: Progress Notes Filed: 07/18/2025 11:54 Note Text: Episode Visit Count: 1 Therapist That Will Accept/Oversee The Plan Of Care: Jennifer Eubanks Start of Care Date: 07/18/25 Onset Date: -- ("ever since my late 20'") Plan of Care Certification Date: 07/18/25 Next Certification Due Date: 08/29/25 Patient Identified by Name and Date of : Yes REHABILITATION AND SPORTS THERAPY PHYSICAL THERAPY EVALUATION PLAN OF CARE: Assessment: José Miguel Young Sr. presents with diagnosis of chronic right-sided low back pain without sciatica that interferes with walking, standing, sitting, rising from a chair . The patient presents with impairments in ADL's, balance, flexibility, gait, independence in exercise, joint mobility, overall function, patient reported outcome measures, posture, range of motion, strength, symptom management, and tissue tenderness. PROMIS? (Patient-Reported Outcomes Measurement Information System) scores were reviewed and identified as a rehabilitation concern. Prognosis for therapy is Fair due to: chronic nature of impairments, clinical presentation, multiple co- morbidities, limited tolerance to activity . The patient will benefit from skilled therapy services to meet the goals established for this plan of care as noted below. Classification Pain Mechanism Classification: Nociceptive Low Back Pain Classification: Symptom Modulation Goals for Episode of Care: established 07/18/25 Independent in home exercises. Patient will decrease pain to 1-2/10 with functional activities to allow patient to improve ambulation, transfers, and standing tolerance for ADLs. Restore pain-free lumbar ROM to minimal to moderate limitation without increased symptoms flexion and extension to allow for transitional movements. Stand / Walk 15-20 minutes without increased pain/symptoms. Sit 1 hours without pain/symptoms to allow for seated activities. Patient Goals: reduce LBP Time Frame for Goals and Treatment : 08/29/25 Planned Interventions, Frequency, and Duration: Current Frequency: 1x/week Duration: 6 weeks Total Number of Visits Planned: 6 Planned Treatment Interventions: Therapeutic exercise (32092), Neuromuscular re-education (42928), Manual therapy (48479), Therapeutic activities (46475), Self-jail management (12177), Gait Training (95378) PLAN FOR NEXT VISIT: Core activation standing in rollator, pt. instructed to bring it with him next visit. Patient demonstrates good understanding of plan of care and treatment. The above goals and plan of care were discussed and agreed upon by patient/family. SUBJECTIVE: for LBP that onset in pt. late 20's without specfic injury. Mentions B knee pain due to injuries but no hx of surgery. Only tolerates about 10 min of sitting and standing for 10 minutes. Difficulty with walking and standing upright. Leaning forward reduces symptoms. Lost his 22 yo daughter in a car accident years ago. Patient Goals: reduce LBP Functional Limitations: walking, standing, sitting, rising from a chair Prior Level of Function: Independent without limitations Intake Information: Prescription present Falls Interview: No positive findings with falls interview Red Flags Vertebral Fracture Clinical Reasoning: No identified risk factors Abdominal Aortic Aneurysm Clinical Reasoning: No identified risk factors. Cancer Red Flags: Age >50 or <20 Cancer Clinical Reasoning: Proceed with caution Infection Clinical Reasoning: No identified risk factors. Cauda Equina Syndrome Clinical Reasoning: No identified risk factors. Red Flags - Cervical Cancer Red Flags: Age >50 or <20 Cancer Clinical Reasoning: Proceed with caution Infection Clinical Reasoning: No identified risk factors. Spine History Symptoms Location at Onset: Back Symptoms Since Onset: Worsening Pain is Worse Always: Standing, Walking, Prolonged positions, Sitting Pain is Better Always: Bending Pain: Pain Pain Level: 8 Pain Location: Low Back/Lumbar Spine- Midline Description: Aching Frequency: With movement Post Treatment Pain Post Treatment Pain Level: 9 Post Treatment Pain Location: Low Back/Lumbar Spine- Midline Post Treatment Pain Description: Aching PROMIS Scales 07/04/2025 Higher is Better Self-Eff Symptom - T Score 32 (Low) Self-Eff Symptom - Percentile 4 07/04/2025 Lower is Better Pain Interference - T Score 72 (severe) Pain Interference - Percentile 1 T-Score and Percentile Interpretation T-scores: mean of general population = 50. 5 points is clinically meaningfully difference Percentiles provide an indication of how the patient's score ranks in relation to the general population. Higher percentile rankings indicate better function/quality of life. 50th percentile is the average of the general population and indicates half of respondents had a w (more content not included)... [facility] 09-05-2025 Telephone encounter Note Sent mychart to patient in regards to SSA disability contact number as I cannot fill this form out without proper testing tools. Armani Leong APRN.CNP [facility] 07-13-2025 Miscellaneous Notes Sent mychart to patient in regards to SSA disability contact number as I cannot fill this form out without proper testing tools. Armani Leong APRN.CNP Type of letter/form/fax request - Disability Form received from mail on 1 floor and placed on MD desk (Dr. Wells) for completion. Completed form needs to be faxed to [employer] at [phone]. Route to [place] when form completed for processing documented in this encounter [facility] 07-10-2025 Telephone encounter Note Type of letter/form/fax request - Disability Form received from mail on 1 floor and placed on MD desk (Dr. Wells) for completion. Completed form needs to be faxed to [employer] at [phone]. Route [address] CT when form completed for processing [facility] 06-25-2025 Progress note [facility] 06-25-2025 Progress note Note Date/Time June 25, 2025 1:54pm [facility] [address] [place] [address] OFFICE VISIT Date of Service: 06/25/25 MR#: [id number] Acct: [id number] Name: JOSÉ MIGUEL YOUNG . Rep #: [id number] : 1965 Provider: YANY Miranda Age/Sex: 59/M Location: [facility] Status: Signed HPI HPI History of Present Illness Details: 59-year-old man with a history of hypertension, morbid obesity, shortness of breath who presented to the hospital in March 2025 with severe hypertension as well as was noted to have atrial fibrillation with a rate of 93 bpm left posterior fascicular block. He underwent CT scan for evaluation which demonstrated no evidence of pulmonary embolism small pleural effusion was noted. He also underwent an echocardiogram which demonstrated an ejection fraction of 70% mild concentric left ventricular pressure for stage I diastolic dysfunction and no significant valvular abnormalities trivial to small pericardial effusion was noted. His blood work did not demonstrate any significant abnormalities other than an elevated proBNP of 1500. He was treated with antihypertensive medication and discharged. He had a readmission in March for a short period of time. He acknowledges random left-sided chest pressure. This can occur at rest and with activity. This occurs more than once per day. He considers this to be brief (less than 10 seconds). He is unsure the etiology. He denies palpitations. He acknowledges bilateral lower extremity edema with left worse than right thatimproves by the morning. He acknowledges shortness of activity such as walking and going up stairs. He denies shortness of breath at rest, orthopnea, cough, or PND. He acknowledges dizziness upon standing. He denies lightheadedness, near-syncope, syncope, or weakness. He acknowledges fatigue. 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 Worker Required: No Accompanied by: Significant Other Is patient in pain?: No Allergies amlodipine Allergy (Intermediate, Verified 06/25/25 13:09) Swelling gabapentin Allergy (Intermediate, Verified 06/25/25 13:09) Swelling lisinopril Allergy (Intermediate, Verified 06/25/25 13:09) cough venlafaxine (From Effexor) Allergy (Intermediate, Verified 06/25/25 13:09) Suicidal thoughts Medications ?Medication ?Instructions ?Recorded ?Confirmed ?Type minoxidil 10 mg tablet 20 mg PO DAILY HAIR GROWTH 1 11/26/18 06/25/25 History finasteride 5 mg tablet 5 mg PO QPM 03/02/25 5 History losartan 100 mg tablet 100 mg PO DAILY 03/02/25 History omeprazole 20 mg capsule,delayed 20 mg PO DAILY 06/25/25 History release tamsulosin 0.4 mg capsule 0.4 mg PO QHS 03/02/2506/25 History dapagliflozin propanediol 10 mg 10 mg PO QDAY #90 tabs 05/09/25 06/25/25 Rx tablet (Farxiga) escitalopram oxalate 20 mg tablet 20 mg PO QDAY 06/25/25 History apixaban 5 mg tablet (Eliquis) 5 mg PO BID #180 tabs 0 05/24/25 06/25/25 Rx atenolol 100 mg tablet 100 mg PO DAILY #90 tabs 06/25/25 Rx furosemide 40 mg tablet 40 mg PO QDAY #90 tabs 06/0406/25/25 Rx nifedipine 60 mg tablet,extended 60 mg PO DAILY #90 ta bs 06/04/25 06/25/25 Rx release acetaminophen 500 mg tablet mg PO 06/25/25 06/25/25 Hi story bupropion HCl 150 mg 24 hr tablet, 150 mg PO QDAY 06/0806/25/25 History extended release cyclobenzaprine 10 mg tablet 5 mg PO BID PRN 06/25/25 06/25/25 History guanfacine 1 mg tablet 1 mg PO QPM BLOOD PRESSURE 3 0 days 06/25/25 06/25/25 History ##30 melatonin 5 mg chewable tablet 5 mg PO HS 06/25/25 History Ejection fraction %: 70 Have you fallen in the past year?: No PFSH Medical History Atrial fibrillation (HFpEF) heart failure with preserved ejection fraction D-dimer, elevated Morbid obesity with BMI of 50.0-59.9, adult Dyspnea Anxiety and depression HTN (hypertension) Disorder of bone, unspecified Obesity hypoventilation syndrome Surgical History No history of previous surgery Family History Father CVA (cerebral vascular accident) Cancer Mother CVA (cerebral vascular accident) Diabetes Social History Smoking Status: Never smoker alcohol intake: never substance use type: does not use caffeine: Yes Type: carbonated beverages ROS Const Const: Positive for fatigue and difficulty sleeping; Negative for weakness Eyes Eyes: Negative for change in vision ENT ENT: Positive for dizziness (Upon standing) and balance problems (Using rollator) Cardio Chest Pain: Yes Frequency: more than once a day Character: other (Pressure) Onset: other (Randomly) Location: left chest Duration: brief Palpitations: No Edema: Bilateral (Left > right, resolves by morning) Muscle aches with walking: None Resp Respiratory: Positive for SOB with activity (with walking and stairs); Negative for SOB at rest or SOB orthopnea\\SOB lying down GI GI: Negative nausea or heartburn : Negative for hematuria or frequent nighttime urination/ nocturia Musc Musc: Positive for joint pain (Back and knees) and balance problems (Using rollator) Skin Skin: Negative non-healing lesions or rash Neuro Neuro: Positive for dizziness (Upon standing); Negative for lightheadedness, near syncope, syncope or weakness Endo Endo: Positive for fatigue Allergy Allergy/Immunology: Negative for rash Cardiology Exam Const Appearance: cooperative, healthy appearing, comfortable and no acute distress Nutritional Appearance: well nourished and obese Orientation: alert, awake and oriented x3 Head Head: normal to inspection Ears: hearing grossly normal bilaterally Nose: external nose normal Face and Sinus: face symmetric Mouth: moist mucous membranes Eyes General: appearance normal, both eyes and all related structures Eyelids: eyelids normal EOM: EOM intact bilaterally Neck Neck: normal visual inspection and no JVD Carotids: normal carotid upstroke Chest Chest inspection: normal inspection of the chest, symmetric chest movement and normal respiratory effort; Negative cough Auscultation: Bilateral: Clear to Auscultation Cardio Rate: regular rate Rhythm: regular rhythm Heart sounds: S1 normal and S2 normal; Negative rub, gallop or murmur GI GI: normal to inspection and obese Neuro General: patient alert, patient awake, patient oriented x3 and CN's II-XI intactbilaterally Skin Skin: no rashes or lesions noted Extremities Pulses: Normal: Right Posterior Tibial Pulse, Left Posterior Tibial Pulse, RightRadial Pulse and Left Radial Pulse Lower Extremity Edema: None: Bilateral Psych Psychological: normal affect Supplemental Info Supplemental Information Echocardiogram 03/02/25 Interpretation Summary The left ventricular ejection fraction is 70 %. Stage 1 diastolic dysfunction. There is severe biatrial dilatation. Trivial to small pericardial effusion. The study was technically difficult. Stress Test 09/27/19 Impression: 1. There is no evidence of significant ischemia or infarction. 2. Estimated ejection fraction is 67%. CTA Chest 03/18/25 FINDINGS: Heart: Mild cardiomegaly. Stable small pericardial effusion. Mild coronary artery calcifications. Thoracic Aorta: No thoracic aortic aneurysm or dissection. Pulmonary Vessels: Main pulmonary artery is enlarged, and measures 3.8 cm, likely secondary to pulmonary arterial hypertension. No evidence of acute pulmonary emboli through the major subsegmental branches. Assessment and Plan Assessment and Plan (1) Atrial fibrillation: Status: Chronic Qualifiers: Atrial fibrillation type: paroxysmal Qualified Code(s): I48.0 - Paroxysmal atrial fibrillation Plan: Atrial Fibrillation Diagnosis: February 2025 [id number] score: 2 (CHF, HTN) Atrial fibrillation stage: 3A, Paroxysmal DCCV: 05/16/2025 12 Lead EC06/25/2025- Sinus Rhythm with 1st degree AV block at 65 bpm Echocardiogram: 03/02/2025- EF: 70%, severe biatrial dilatation Heart Rate Control: atenolol 100mg PO Daily Anticoagulation/CVA Protection: Eliquis 5mg PO BID He is maintaining sinus rhythm and feels improved since cardioversion. We with severe biatrial enlargement will continue to monitor for reoccurrence. He is being testing for LENY. He may hold Eliquis for up upcoming dental procedure in which she will have multiple teeth pulled. (2) (HFpEF) heart failure with preserved ejection fraction: Status: Chronic Qualifiers: Heart failure chronicity: acute Qualified Code(s): I50.31 - Acute diastolic (congestive) heart failure Plan: Non-ischemic Cardiomyopathy with preserved EF: Echocardiogram 03/02/2025-EF: 70% Twelve-lead EC06/25/2025-sinus rhythm first AV block at 65 beats minute with QRS 90 [employer] Functional Class: 2 ACC/AHA stage: C Guideline Directed Medical Therapy: Atenolol 100 mg p.o. daily Farxiga 10 mg p.o. daily Lasix 40 mg p.o. daily losartan 100 mg p.o. daily He does have evidence of heart failure with preserved ejection fraction. He will continue on the current guideline directed medical therapy. No major changes will be made. He may benefit from an SGLT2 inhibitor. Will consider spironolactone as indicated/necessary. (3) HTN (hypertension): Status: Chronic Qualifiers: Hypertension type: essential hypertension Qualified Code(s): I10 - Essential (primary) hypertension Plan: Patient's blood pressure is well-controlled. We will continue to monitor. We will not make any medication regimen changes. (4) Dyspnea: Status: Acute Qualifiers: Dyspnea type: shortness of breath Qualified Code(s): R06.02 - Shortnessof breath Plan: This is thought to be multifactorial. He will undergo a stress test to ensure not CAD related. His last stress test in 2019 was negative for ischemia. Risk factor and lifestyle modification encouraged. Weight loss also encouraged. (5) Morbid obesity with BMI of 50.0-59.9, adult: Status: Acute Plan: GLP-1 medication reviewed as an option in conjunction to lifestyle modification. Orders: Orders 12 Lead EKG performed by [facility] Today I10 - Essential (primary) hypertension, I48.91 - Unspecified atrial fibrillation, I50.30 - Unspecified diastolic (congestive) heart failure Nuclear Stress Test - Chemical Today E66.01 - Morbid (severe) obesity due to excess calories, I10 - Essential (primary) hypertension, I48.0 - Paroxysmal atrial fibrillation, I50.31 - Acute diastolic (congestive) heart failure, R06.02- Shortness of breath, Z68.43 - Body mass index [BMI] 50.0-59.9, adult Plan Details Additional Comments: Thank you for allowing us to participate in the patients plan of care, if you have any questions please do not hesitate to call. Plan was reviewed with patient/family member along with red flag symptoms. Understanding was acknowledged. Questions were answered to apparent satisfaction. This note was generated using a voice recognition system and there may be incorrect words, spelling or punctuation that were not noted when reviewing the office note prior to saving. Portions of this documentation were copied and pasted from previous office visit notes to provide a cohesive continuity of the history. The note has been reviewed, edited, and updated, as necessary. Follow Up: 12-15 Months (TRACTOR TRAILER MOVING VAN DRIVER) 6 Months (MANAGER DESKTOP/PA) Coding Level of Care Code Off vis,est,level 4 Diagnoses Paroxysmal atrial fibrillation I48.0 Atrial fibrillation type: paroxysmal Acute heart failure with preserved ejection fraction (HFpEF) I50.31 Heart failure chronicity: acute Essential hypertension I10 Hypertension type: essential hypertension Shortness of breath R06.02 Dyspnea type: shortness of breath Morbid obesity with BMI of 50.0-59.9, adult E66.01; Z68.43 Coding Level of Care Code Off vis,est,level 4 Diagnoses Paroxysmal atrial fibrillation I48.0 Atrial fibrillation type: paroxysmal Acute heart failure with preserved ejection fraction (HFpEF) I50.31 Heart failure chronicity: acute Essential hypertension I10 Hypertension type: essential hypertension Shortness of breath R06.02 Dyspnea type: shortness of breath Morbid obesity with BMI of 50.0-59.9, adult E66.01; Z68.43 Clinical Quality Measures Falls Risk Screening/Assistive Devices Have you fallen in the past year?: No Cardiac Ejection fraction %: 70 06/25/25 1354 <Electronically signed by José Miguel EDWARDC> Date _ José Miguel Miranda NP MANAGER DESKTOP-C Cosigner Signature: Date (if applicable) CC: Dr. Pierce Wells MD ~ [place] [employer] Work Phone: [phone]) 190-558008-08-2025 Telephone encounter Note* Telephone Encounter - Ruby Lee MA - 06/15/2025 9:23 AM EDT Do you need to see pt first. Nothing documented in last few visits regarding fatigue or sleep issues. Ruby Lee MA [facility]08-08-2025 Miscellaneous Notes* Telephone Encounter - Ruby Lee MA - 06/15/2025 9:23 AM EDT Do you need to see pt first. Nothing documented in last few visits regarding fatigue or sleep issues. Ruby Lee MA [facility] NoteHNO ID: [id number] Author: CHERRI CERDA APRN.MELIA Service: ? Author Type: Nurse Practitioner Type: Progress Notes Filed: 06/14/2025 09:37 Note Text: [facility] Today's Date: 06/14/2025 Name: José Miguel Brennertrista Sr. : 1965 Purpose: New Patient Consultation Chief complaint: right side low back pain Referring Clinician: Armani Leong Pertinent Past Medical History: A Fib cardioversion in sinus, CHF, HTN, sciatica, anxiety, depression, obesity Pertinent Past Surgeries: none History of Present Illness (HPI): 06/14/2025 - Initial HPI (Obtained by Cherri Cerda CNP). DURATION AND ONSET: The pain complaint has been present for approximately >5 years. The pain had a gradual onset. The mechanism of injury is unknown. RED FLAG SYMPTOMS: numbness in R leg at times . PAIN DESCRIPTION: Timing: Constant Character: Aching, Burning, Sharp, Stabbing Primary Location: low back Radiation: down right leg down the back ending at his knee Exacerbating factors: lifting, Flexion, Extension Relieving factors: stretching, Lying Down, Medications Interferes with: physical activity, work, walking, sleeping, lifting, and social activities José Miguel Young is a 59-year-old male with a history of atrial fibrillation, congestive heart failure, hypertension, anxiety, depression, and obesity, presenting for evaluation of right-sided low back pain. José Miguel reports experiencing right-sided low back pain for over five years, which developed gradually. He describes the pain as a constant aching, burning, sharp, and stabbing sensation, primarily localized to the right side but occasionally spreading across the entire back. The pain radiates down the back of the right leg to the kneecap. He also experiences intermittent numbness in the right leg, described as a sensation of something touching the leg when nothing is there. He does not report consistent leg weakness. The pain is exacerbated by bending and lifting, significantly impacting his ability to perform physical activities, including walking, playing with his grandchildren, and sleeping. He notes that the pain has worsened over time and is now more constant than before. Previously, he managed the pain with ibuprofen, but due to his spinning mule operator's recommendation, he has switched to Tylenol, which he feels is less effective. He takes two Tylenol in the morning and two at night, with additional doses during the day if the pain or headaches worsen. He has not tried gabapentin, Lyrica, muscle relaxers, or opioids for pain management. He has not participated in physical therapy. José Miguel has a history of degenerative disc disease and sciatica. He has not undergone any surgeries on his joints, neck, or back. He has not been tested for sleep apnea but plans to pursue testing. He reports frequent headaches and difficulty sleeping, which he attributes to racing thoughts and anxiety. He is currently taking Lexapro and Wellbutrin for anxiety and depression. He also reports shortness of breath, lightheadedness, and dizziness when standing up, requiring him to pause for a few minutes to regain his composure. He notes that the shortness of breath is particularly pronounced when walking and may be related to the pain. He is under the care of a spinning mule operator for atrial fibrillation and congestive heart failure and is taking Eliquis. He underwent a cardioversion, which successfully restored normal rhythm but did not alleviate the shortness of breath. He is on a fluid restriction of 50 ounces per day due to congestive heart failure and experiences leg swelling when he exceeds this limit or is exposed to heat. 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 He lives with his daughter and her four children and receives financial support from his son. He expresses frustration with his current situation and a desire to improve his quality of life. Current Pain Medications: Neuropathics: NSAIDS: on eliquis Muscle Relaxants: none Topicals: OTC mediction Other Prescription or OTC Pain Medications: tylenol Opioids (when applicable): none Anti-depressants or Mood-Stabilizers: Lexapro, Wellbutrin Anti-Coagulants: Eliquis Therapies Attended (Current or Most Recent): No Current Therapies 06/14/2025 AG SPINE COMBINATION Questionnaire GREENLIGHT Completed Date 06/14/2025 Questionnaire Opiod Risk Tool Completed Date 06/14/2025 Comments Moderate Risk 4 Greenlight Questionnaire GREENLIGHT Completed Date 06/14/2025 Opioid Risk Tool Opiod Risk Tool Date Completed 06/14/2025 Comments Moderate Risk 4 ROBERT-7 Anxiety Score 20 Completed Date 06/14/2025 PHQ9P Score 24 Completed Date 06/14/2025 (All drug screens are appropriate unless indicated otherwise) (more content not included)...[facility]08-07-2025 NoteHNO ID: [id number] Author: MORENA CHRISTIANSON LPN Service: ? Author Type: LICENSED NURSE Type: Progress Notes Filed: 06/14/2025 09:37 Note Text: Review of Systems Constitutional: Positive for activity change. Negative for chills, fever and unexpected weight change. Genitourinary: Negative for difficulty urinating. Musculoskeletal: Positive for back pain and gait problem. Negative for arthralgias, joint swelling, myalgias, neck pain and neck stiffness. Neurological: Positive for headaches. Negative for weakness and numbness. Psychiatric/Behavioral: Positive for hallucinations and sleep disturbance. Negative for suicidal ideas. The patient is nervous/anxious.[facility]07-28-2025 History of Present illness Narrative* Joaquim Zavaleta RT(R) - 06/04/2025 9:20 AM EDT Radiology Service Progress Note PATIENT NAME: José Miguel Young Sr. DATE OF SERVICE: June 04, 2025 TIME: 9:12 AM PATIENT IDENTITY VERIFICATION COMPLETED USING TWO (2) IDENTIFIERS: Name and Date of confirmedby patient verbally. FALL SCREENING: Has the patient had 2 falls in the last year or 1 fall with injury or currently using an Ambulatory Assistive Device (Walker, Cane, Wheelchair, Crutches, etc.)? No PATIENT GENDER DATA: Assigned male at PATIENT RELEVANT IMPLANT DATA REVIEWED: Yes PATIENT PRESENTS WITH AN IMPLANTABLE OR ATTACHED TRAWL NET MAKER: No RADIOLOGY DEPARTMENT: General X-ray: Exam(s) Completed: Spine X-Ray(s): Lumbar AP / LAT / L5-S1 PERIPHERAL IV DATA: Not applicable SIGNED BY: RT Wilder(R) June 04, 2025 9:12 AM documented in this encounterCosho[facility]07-[facility]25 NoteHNO ID: [id number] Author: JOAQUIM ZAVALETA RT(R) Service: ? Author Type: Mechanical Design Engineer Facilities Type: Progress Notes Filed: 06/04/2025 09:19 Note Text: Radiology Service Progress Note PATIENT NAME: José Miguel Young Sr. DATE OF SERVICE: June 04, 2025 TIME: 9:12 AM PATIENT IDENTITY VERIFICATION COMPLETED USING TWO (2) IDENTIFIERS: Name and Date of confirmed by patient verbally. FALL SCREENING: Has the patient had 2 falls in the last year or 1 fall with injury or currently using an Ambulatory Assistive Device (Walker, Cane, Wheelchair, Crutches, etc.)? No PATIENT GENDER DATA: Assigned male at PATIENT RELEVANT IMPLANT DATA REVIEWED: Yes PATIENT PRESENTS WITH AN IMPLANTABLE OR ATTACHED TRAWL NET MAKER: No RADIOLOGY DEPARTMENT: General X-ray: Exam(s) Completed: Spine X-Ray(s): Lumbar AP / LAT / L5-S1 PERIPHERAL IV DATA: Not applicable SIGNED BY: RT Wilder(R) June 04, 2025 9:12 [facility]07-28-2025 Instructions* Patient Instructions* Armani Leong APRN.GATE TECHNICIAN - 06/04/2025 8:58 AM EDT We discussed your heart failure and blood pressure: - Your blood pressure today was 130/70, which is stable. Continue monitoring your blood pressure asdirected by your spinning mule operator. - You are currently following with your spinning mule operator at [facility]. Please continue attending your scheduled appointments with them. - You are taking Eliquis for your heart condition. Continue this medication as prescribed. - You mentioned being started on Farxiga and discontinuing potassium and low- dose aspirin. Please continue with the current medication regimen as directed by your spinning mule operator. We discussed your back pain: - You have chronic back pain, primarily on the lower right side, which has worsened since discontinuing ibuprofen. Tylenol is currently recommended for pain management, as NSAIDs are not safe for your heart condition. - I will order an updated x-ray of your lumbar spine to assess the current condition of your back. Please complete this imaging study as soon as possible. - I am prescribing a short course of low-dose steroids to help reduce inflammation and manage your pain. Take this medication with food as directed. - Consider seeing a highway painter helper for long-term management of your chronic back pain. Let us know if you would like a referral. We discussed your mental health: - You are currently taking Lexapro 20 mg daily for depression. Continue this medication as prescribed. - I am restarting Wellbutrin to provide additional support for your mood. Please take this medication as directed. - If you experience worsening depression or thoughts of self-harm, please contact our office immediately or seek emergency care. Counseling or therapy may also be beneficial, and we can assist with areferral if needed. We discussed your weight and fluid intake: - Your weight has been stable, currently at 324 lbs. You have lost significant weight since your initial hospitalization, which is a positive step. - Continue limiting your fluid intake to less than 50 ounces per day as directed to manage your heart failure symptoms. Avoid excessive heat to prevent dehydration. Follow-up plan: - Please complete the lumbar spine x-ray as soon as possible. - Follow up with your spinning mule operator as scheduled to manage your heart condition. - I will see you back in 6 weeks to review your progress, including your x-ray results, pain management, and overall health. If you have any questions or concerns before your next visit, please contact our office. documented in this encounterCoshocton [facility]07-28-2025 History of Present illness Narrative* Armani Leong APRN.CNP - 06/04/2025 8:40 AM EDT Chief Complaint Patient presents with: Follow Up HPI José Miguel Young Sr. is a 59 year old male who presents here today for above reason. José Miguel Young is a 59-year-old male with a history of CHF, presenting for follow-up. Jos éMiguel has been experiencing elevated blood pressure readings over the weekend. He is currently underthe care of a spinning mule operator at [facility] and had a cardioversion performed on 05/09. He istaking Farxiga and Eliquis, and was recently discontinued from potassium and low-dose aspirin. He reports stable weight, currently at 324 lbs, with a recent weight loss of almost 60 lbs. He has been hospitalized twice in the past month, with a current weight range of 319- 325 lbs. José Miguel also reports persistent right-sided lower back pain, which has worsened since discontinuing ibuprofen and switching to Tylenol. The pain does not radiate to the legs but is associated with knee issues. He has a history of degenerative disc disease and arthritis, confirmed by an x-ray in 2019. He has not seen a chiropractor in 5-6 years. Additionally, José Miguel reports pressure between the shoulder blades and chest tightness, which began after his CHF diagnosis. He is currently taking 20 mg of Lexapro for depression, recently increased from 10 mg, but reports no improvement in symptoms. He has a history of Wellbutrin use, which was disco ntinued when his condition improved. He reports difficulty sleeping due to racing thoughts and has had thoughts of self-harm, though he denies any current plans or intentions. He attributes his current mental state to his medical condition and financial stress, including $70,000 in medical bills. He reports a decreased appetite, eating only one meal a day, and is limiting fluid intake to less than 50 ounces per day. Past medical history, appointments, medications, allergies reviewed. EXAM: BP 130/78 Pulse 62 Resp 18 Wt (!) 147 kg (324 lb) SpO2 95% BMI 50.00 kg/m General Appearance: Well appearing, alert, in no acute distress, well-hydrated, well nourished. andMorbidly obese. Back:gait is stiff, unable to get onto exam table likely, he has right sided lower paraspinal tenderness, SI joint tenderness Lungs: Lungs clear to auscultation. No wheezing, rhonchi, rales.. Heart: RRR without murmur, gallop, or rubs. No ectopy. Extremities: No deformities, edema Assessment and Plan 1. Heart failure, unspecified HF chronicity, unspecified heart failure type (HCC) (I50.9) Clinically stable. Recent cardioversion performed on May 16. Currently on Farxiga and Eliquis; potassium and aspirin have been discontinued. Weight stable between 319-325 lbs; fluid intake restricted to less than 50 oz per day. - Continue Farxiga and Eliquis as prescribed. - Follow-up with cardiology today as scheduled. 2. Atrial fibrillation, unspecified type (HCC) (I48.91) Managed with Eliquis; recent cardioversion performed on May 16. - Continue Eliquis as prescribed. - Follow-up with cardiology. 3. Essential hypertension (I10) Blood pressure readings have been elevated recently, but currently measured at 130/70 mmHg. - Monitor blood pressure regularly. - Follow-up with cardiology. 4. Benign prostatic hyperplasia with nocturia (N40.1) Managed with Tamsulosin (Flomax) at bedtime. - Refill Tamsulosin prescription. 5. Chronic right-sided low back pain without sciatica (M54.50) Chronic right-sided low back pain with no radicular symptoms. Previous imaging from 2020 shows degenerative disc disease and arthritis in the lumbar spine and SI joints. Pain management complicated by inability to use NSAIDs due to heart condition. - Ordered updated lumbar spine X-ray. - Prescribed a short course of oral corticosteroids to reduce inflammation. - Referral to pain management for long-term pain control. 6. Reactive depression (F32.9) Currently on maximum dose of Lexapro 20 mg daily; previously on Wellbutrin. Reports persistent depressive symptoms, including insomnia and anhedonia. Denies suicidal ideation but expresses feelings of hopelessness. - Restart Wellbutrin as adjunct therapy. - Continue Lexapro 20 mg daily. - Discussed the importance of mental health support; recommended counseling or psychiatric evaluation if symptoms worsen. Armani Leong APRN.CNP RTO in 6 weeks, sooner if needed. This note was partly generated using [employer] voice recognition dictation and may contain some misspelled or inaccurate words missed on review. Recording using [employer] software for draft documentation of the visit was discussed with the patient/authorized service center representative; all questions welcomed and answered. Patient/authorized service center representative agreed to proceed documented in this encounterCoshocton [facility]07-28-2025 NoteHNO ID: [id number] Author: ARMANI LEONG APRN.CNP Service: ? Author Type: Nurse Practitioner Type: Progress Notes Filed: 06/04/2025 09:12 Note Text: Chief Complaint Patient presents with: Follow Up HPI José Miguel Young Sr. is a 59 year old male who presents here today for above reason. José Miguel Young is a 59-year-old male with a history of CHF, presenting for follow-up. José Miguel has been experiencing elevated blood pressure readings over the weekend. He is currently under the care of a spinning mule operator at [facility] and had a cardioversion performed on 05/09. He is taking Farxiga and Eliquis, and was recently discontinued from potassium and low-dose aspirin. He reports stable weight, currently at 324 lbs, with a recent weight loss of almost 60 lbs. He has been hospitalized twice in the past month, with a current weight range of 319-325 lbs. José Miguel also reports persistent right-sided lower back pain, which has worsened since discontinuing ibuprofen and switching to Tylenol. The pain does not radiate to the legs but is associated with knee issues. He has a history of degenerative disc disease and arthritis, confirmed by an x-ray in 2019. He has not seen a chiropractor in 5-6 years. Additionally, José Miguel reports pressure between the shoulder blades and chest tightness, which began after his CHF diagnosis. He is currently taking 20 mg of Lexapro for depression, recently increased from 10 mg, but reports no improvement in symptoms. He has a history of Wellbutrin use, which was discontinued when his condition improved. He reports difficulty sleeping due to racing thoughts and has had thoughts of self-harm, though he denies any current plans or intentions. He attributes his current mental state to his medical condition and financial stress, including $70,000 in medical bills. He reports a decreased appetite, eating only one meal a day, and is limiting fluid intake to less than 50 ounces per day. Past medical history, appointments, medications, allergies reviewed. EXAM: BP 130/78 Pulse 62 Resp 18 Wt (!) 147 kg (324 lb) SpO2 95% BMI 50.00 kg/m? General Appearance: Well appearing, alert, in no acute distress, well-hydrated, well nourished. and Morbidly obese. Back:gait is stiff, unable to get onto exam table likely, he has right sided lower paraspinal tenderness, SI joint tenderness Lungs: Lungs clear to auscultation. No wheezing, rhonchi, rales.. Heart: RRR without murmur, gallop, or rubs. No ectopy. Extremities: No deformities, edema Assessment and Plan 1. Heart failure, unspecified HF chronicity, unspecified heart failure type (HCC) (I50.9) Clinically stable. Recent cardioversion performed on May 16. Currently on Farxiga and Eliquis; potassium and aspirin have been discontinued. Weight stable between 319-325 lbs; fluid intake restricted to less than 50 oz per day. - Continue Farxiga and Eliquis as prescribed. - Follow-up with cardiology today as scheduled. 2. Atrial fibrillation, unspecified type (HCC) (I48.91) Managed with Eliquis; recent cardioversion performed on May 16. - Continue Eliquis as prescribed. - Follow-up with cardiology. 3. Essential hypertension (I10) Blood pressure readings have been elevated recently, but currently measured at 130/70 mmHg. - Monitor blood pressure regularly. - Follow-up with cardiology. 4. Benign prostatic hyperplasia with nocturia (N40.1) Managed with Tamsulosin (Flomax) at bedtime. - Refill Tamsulosin prescription. 5. Chronic right-sided low back pain without sciatica (M54.50) Chronic right-sided low back pain with no radicular symptoms. Previous imaging from 2019 shows degenerative disc disease and arthritis in the lumbar spine and SI joints. Pain management complicated by inability to use NSAIDs due to heart condition. - Ordered updated lumbar spine X-ray. - Prescribed a short course of oral corticosteroids to reduce inflammation. - Referral to pain management for long-term pain control. 6. Reactive depression (F32.9) Currently on maximum dose of Lexapro 20 mg daily; previously on Wellbutrin. Reports persistent depressive symptoms, including insomnia and anhedonia. Denies suicidal ideation but expresses feelings of hopelessness. - Restart Wellbutrin as adjunct therapy. - Continue Lexapro 20 mg daily. - Discussed the importance of mental health support; recommended counseling or psychiatric evaluation if symptoms worsen. Armani Leong APRN.GATE TECHNICIAN RTO in 6 weeks, sooner if needed. This note was partly generated using [employer] voice recognition dictation and may contain some misspelled or inaccurate words missed on review. Recording using [employer] software for draft documentation of the visit was discussed with the patient/authorized service center representative; all questions welcomed and answered. Patient/authorized service center representative agreed [facility] Telephone encounter Note* Telephone Encounter - Pierce Wells MD - 05/29/2025 11:49 AM EDT OK to refill as ordered Pierce Wells MD [facility]07-22-[facility]25 Miscellaneous Notes* Telephone Encounter - Pierce Wells MD - 05/29/2025 11:49 AM EDT OK to refill as ordered Pierce Wells MD * Telephone Encounter - Beata Cedeno - 05/29/2025 10:21 AM EDT Prescription Refill Information The patient has been identified by name and date of : Yes Caregiver verified no other encounters exist for this prescription request: Yes Caregiver confirmed with patient/requestor that no other refills are due, in the near future, with this provider at this time: Yes The last office visit in the department: 05/05/2025 Does the patient have a future office visit with this provider/department: Yes Requested Prescriptions Pending Prescriptions Disp Refills apixaban (ELIQUIS) 5 mg tab(s) 60 tablet 11 Sig: Take 1 tablet by mouth two times a day. omeprazole (PRILOSEC) 20 mg capsule 30 capsule 11 Sig: Take 1 capsule by mouth daily before breakfast. 1/2 hr before meal. losartan (COZAAR) 100 mg tablet 30 tablet 11 Sig: Take 1 tablet by mouth once daily. NIFEdipine ER (PROCARDIA XL) 30 mg 24 hr tablet 30 tablet 11 Sig: Take 1 tablet by mouth once daily. Disp Refills Start End guanFACINE (TENEX) 1 mg tablet 30 tablet 11 05/30/2024 -- Sig: Take 1 tablet by mouth daily at bedtime. Sent to pharmacy as: guanFACINE (TENEX) 1 mg tablet Beata Ragsdale May 29, 2025 10:24 AM documented in this encounterCoshocton [facility]07-22-2025 Telephone encounter Note * Telephone Encounter - Beata Cedeno - 05/29/2025 10:21 AM EDT Prescription Refill Information The patient has been identified by name and date of : Yes Caregiver verified no other encounters exist for this prescription request: Yes Caregiver confirmed with patient/requestor that no other refills are due, in the near future, with this provider at this time: Yes The last office visit in the department: 05/05/2025 Does the patient have a future office visit with this provider/department: Yes Requested Prescriptions Pending Prescriptions Disp Refills apixaban (ELIQUIS) 5 mg tab(s) 60 tablet 11 Sig: Take 1 tablet by mouth two times a day. omeprazole (PRILOSEC) 20 mg capsule 30 capsule 11 Sig: Take 1 capsule by mouth daily before breakfast. 1/2 hr before meal. losartan (COZAAR) 100 mg tablet 30 tablet 11 Sig: Take 1 tablet by mouth once daily. NIFEdipine ER (PROCARDIA XL) 30 mg 24 hr tablet 30 tablet 11 Sig: Take 1 tablet by mouth once daily. Disp Refills Start End guanFACINE (TENEX) 1 mg tablet 30 tablet 11 05/30/2024 -- Sig: Take 1 tablet by mouth daily at bedtime. Sent to pharmacy as: guanFACINE (TENEX) 1 mg tablet Beata Ragsdale May 29, 2025 10:24 AM [facility]07-14-[facility] Telephone encounter Note* Telephone Encounter - Angela Ojeda RN - 05/21/2025 12:24 PM EDT Pt's called in and reports Dr Lucio changed his medications around. She states he kept the Pt on the Lasix and discontinued the Potassium Chloride. I told her his K+ on his labs from 05/16/25 was 4.0, so it was ok. I don't know if it was temporary that he took him off of it and he was going to be monitoring his labs. The she states the provider put him on Farxiga, I told her this was for DM but could also be used to protect the heart. I let her know she would need to call Dr Lucio's office and ask them about these medications, since he is the one that prescribes them. She verbalized understanding and said she was going to call them. Angela Ojeda RN [facility]07-14-2025 Miscellaneous Notes* Telephone Encounter - Angela Ojeda RN - 05/21/2025 12:24 PM EDT Pt's called in and reports Dr Lucio changed his medications around. She states he kept the Pt on the Lasix and discontinued the Potassium Chloride. I told her his K+ on his labs from 05/16/25 was 4.0, so it was ok. I don't know if it was temporary that he took him off of it and he was going to be monitoring his labs. The she states the provider put him on Farxiga, I told her this was for DM but could also be used to protect the heart. I let her know she would need to call Dr Lucio's office and ask them about these medications, since he is the one that prescribes them. She verbalized understanding and said she was going to call them. Angela Ojeda RN documented in this encounterCoshocton [facility] Center07-09-2025 Procedure note [facility] Medical Records Department [address] [place] [address] Procedure Report 05/16/25 1306 MR#: [id number] Acct: [id number] Name: JOSÉ MIGUEL YOUNG . Rep #: [id number] : 1965 59 From: Bay Phillips DO PCP: Dr. Pierce Wells MD Status:[facility] Location: [facility] Procedures Pulmonary Pulmonary Procedures /Diagnostic Testin Con Sedation Non-invasive Procedural Procedure Information Date of Procedure: 05/16/25 Description of procedure: CONSCIOUS SEDATION REPORT DATE OF SERVICE: May 16, 2025 BRIEF HISTORY OF PRESENT ILLNESS: The patient is a 59-year-old male who presented to [facility] an electiveoutpatient cardioversion due to underlying atrial fibrillation. The patient denied any prior anesthetic complications. He is a non-smoker and has never been diagnosed with obstructive sleep apnea. The patient is systemically anticoagulated on Eliquis. His last surface echocardiogram demonstrated anejection fraction of 70%. PHYSICAL EXAMINATION: VITAL SIGNS: Reviewed and were acceptable. GENERAL: The patient is an obese male, in no apparent distress, speaking in full sentences. HEENT: Normocephalic, atraumatic. Mucous membranes are moist and pink. Good mouth opening noted. Trachea is midline. CHEST: S1, S2 irregularly irregular. No murmurs, rubs or gallops were noted. LUNGS: Clear to auscultation bilaterally without appreciable wheezes, rales or rhonchi. ABDOMEN: Soft, nontender, nondistended. Positive bowel sounds. EXTREMITIES: There is no clubbing, cyanosis or edema. ASA Class: II DESCRIPTION OF PROCEDURE: After confirmation of informed consent, the patient's anesthesia plan was reviewed in detail. Propofol was chosen. Risks and benefits were reviewed and the patient agreed to proceed. At 1219, the patient was given his first bolus of propofol. In total, the patient required 100 mg of propofol to achieve an appropriate level of sedation, after which time, he was given a 300 joule [address] by Dr. Lucio at the bedside. This was successful in achieving normal sinus rhythm. The patient was monitored until 1234, at which time he reached his baseline mental status and function. The patient tolerated the procedure well. COMPLICATIONS: None ESTIMATED BLOOD LOSS: None RECOMMENDATIONS: Okay to recover in usual fashion. 05/16/25 1308 Cosigner Signature (if applicable): CC: Dr. Dimitris Lucio MD; Dr. Bay Phillips DO; Dr. Pierce Wells MD~ Signed [facility]07-09-2025 Procedure note [facility] Medical Records Department [address] [place] [address] Procedure Report 05/16/25 1239 MR#: [id number] Acct: [id number] Name: JOSÉ MIGUEL YOUNG . Rep #: [id number] : 1965 59 From: Dimitris Lucio MD PCP: Dr. Pierce Wells MD Status:[facility] Location: [facility] Problems Associated Problem List Diagnoses (1) Atrial fibrillation: Non-invasive Procedural Procedure Information Date of Procedure: 05/16/25 Pre-Procedure Diagnosis: Atrial fibrillation Post-Procedure Diagnosis: Atrial fibrillation Procedure Performed:: Dc cardioversion Procedure Time Out: 12:05 Procedure Start Time: 12:20 Procedure Stop Time: 12:25 Special Medications: Intravenous propofol 100 mg Description of procedure: Patient was brought to the noninvasive lab in the postabsorptive nonsedated state. Patient was seenby Dr. Phillips of the critical care division. Informed consent was obtained. Patient has been on uninterrupted anticoagulation. Anterior posterior pads were applied. EKG demonstrated atrial fibrillation. 300 J of synchronized DC cardioversion energy biphasic were applied after patient was administered 100 mg of propofol. Patient successfully converted to sinus rhythm. Procedure findings: Successful DC cardioversion from atrial fibrillation to sinus rhythm. Follow-up as per office protocol 05/16/25 1251 Cosigner Signature (if applicable): CC: Dr. Dimitris Lucio MD; Dr. Pierce Wells MD~ Signed [facility]07-05-2025 Telephone encounter Note* Telephone Encounter - Jennifer Timmons RN - 05/12/2025 5:42 PM EDT Reason for Call: Regarding medication question for inflamed eyes. Reports burning and watery. Asking about taking benadryl with new cardiology medication. Outcome: Home care recommendation given. Care advice reviewed and voiced understanding. Advised patient and it would be best to check with the pharmacist or spinning mule operator for recommendation on medication. Patient's verbalized understanding. Reason for Disposition [1] Red eye is part of a cold AND [2] no eye pain or blurred vision Answer Assessment - Initial Assessment Questions 1. LOCATION: Location: eyeball is reddened - bilateral 2. REDNESS OF SCLERA: both 3. ONSET: started burning last night 4. EYELIDS: no swelling 5. VISION: able to clearly when eye are not watery 6. ITCHING: no itching burning only 7. PAIN: 5/10 8. CONTACT LENS: no 9. CAUSE: allergies? 10. OTHER SYMPTOMS: post nasal drip Protocols used: Eye - Red Without [id number] [facility]07-05-2025 Miscellaneous Notes* Telephone Encounter - Jennifer Timmons RN - 05/12/2025 5:42 PM EDT Reason for Call: Regarding medication question for inflamed eyes. Reports burning and watery. Asking about taking benadryl with new cardiology medication. Outcome: Home care recommendation given. Care advice reviewed and voiced understanding. Advised patient and it would be best to check with the pharmacist or spinning mule operator for recommendation on medication. Patient's verbalized understanding. Reason for Disposition [1] Red eye is part of a cold AND [2] no eye pain or blurred vision Answer Assessment - Initial Assessment Questions 1. LOCATION: Location: eyeball is reddened - bilateral 2. REDNESS OF SCLERA: both 3. ONSET: started burning last night 4. EYELIDS: no swelling 5. VISION: able to clearly when eye are not watery 6. ITCHING: no itching burning only 7. PAIN: 5/10 8. CONTACT LENS: no 9. CAUSE: allergies? 10. OTHER SYMPTOMS: post nasal drip Protocols used: Eye - Red Without [id number] [facility] Progress note Author Dimitris Lucio [facility] Note Date/Time May 09, 2025 4:40p m [facility] [address] [place] [address] OFFICE VISIT Date of Service: 05/09/25 MR#: [id number] Acct: [id number] Name: JOSÉ MIGUEL YOUNG . Rep #: [id number] : 1965 Provider: Dr. Ariela Lucio MD Age/Sex: 59/M Location: [facility] Status: Signed HPI HPI History of Present Illness Details: 59-year-old man with a history of hypertension, morbid obesity, shortness of breath who presented to the hospital in March of this year with severe hypertension as well as was noted to have atrial fibrillation with a rate of 93 bpm left posterior fascicular block. He underwent CT scan for evaluation which demonstrated no evidence of pulmonary embolism small pleural effusion was noted. He also underwent an echocardiogram which demonstrated an ejection fraction of 70% mild concentric left ventricular pressure for stage I diastolic dysfunction and no significant valvular abnormalities trivial to small pericardial effusion was noted. His blood work did not demonstrate any significant abnormalities other than an elevated proBNP of 1500. He was treated with antihypertensive medication and discharged. He had a readmission in March for a short period of time. He tells me that he has been doing well since. He has had occasional dizziness no diaphoresis no near-syncope he tells me that his Lasix has been reduced. He has been on anticoagulation. He has never been evaluated for sleepapnea. His lipid profile is also not the most favorable with a total cholesterol 140 HDL of 29 and LDL of 88. 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 Accompanied by: Significant Other Is patient in pain?: No Allergies amlodipine Allergy (Intermediate, Verified 05/09/25 15:59) Swelling gabapentin Allergy (Intermediate, Verified 05/09/25 15:59) Swelling lisinopril Allergy (Intermediate, Verified 05/09/25 15:59) cough venlafaxine (From Effexor) Allergy (Intermediate, Verified 05/09/25 15:59) Suicidal thoughts Medications ?Medication ?Instructions ?Recorded ?Confirmed ?Type guanfacine 1 mg tablet 1 tablet PO QPM BLOOD PRESSU RE 30 05/09/18 03/25/25 History days ##30 minoxidil 10 mg tablet 20 mg PO DAILY HAIR GROWTH 1 11/26/18 03/25/25 History finasteride 5 mg tablet 5 mg PO QPM 03/02/25 5 History losartan 100 mg tablet 100 mg PO DAILY 03/02/25 History nifedipine 30 mg tablet,extended 30 mg PO DAILY 03/25/25 History release 24 hr omeprazole 20 mg capsule,delayed 20 mg PO DAILY 03/25/25 History release tamsulosin 0.4 mg capsule 0.4 mg PO QHS 03/02/2503/25 History apixaban 5 mg tablet (Eliquis) 5 mg PO BID 30 days #60 tabs 03/05/25 03/25/25 Rx atenolol 100 mg tablet 100 mg PO DAILY 30 days #30 tabs 03/05/25 03/25/25 Rx dapagliflozin propanediol 10 mg 10 mg PO QDAY #90 tabs 05/09/25 05/09/25 Rx tablet (Farxiga) escitalopram oxalate 20 mg tablet 20 mg PO QDAY History furosemide 40 mg tablet 40 mg PO QDAY 05/09/25 Hist ory Have you fallen in the past year?: No REPLACED BY [facility] Medical History Atrial fibrillation (HFpEF) heart failure with preserved ejection fraction D-dimer, elevated Morbid obesity with BMI of 50.0-59.9, adult Dyspnea Anxiety and depression HTN (hypertension) Disorder of bone, unspecified Obesity hypoventilation syndrome Surgical History No history of previous surgery Family History Father CVA (cerebral vascular accident) Cancer Mother CVA (cerebral vascular accident) Diabetes Social History Smoking Status: Never smoker alcohol intake: never ROS Const Const: Positive for fatigue, weakness and headache(s); Negative for daytime sleepiness or difficulty sleeping ENT ENT: Positive for headache(s) and dizziness; Negative for Nosebleed/epistaxis Cardio Chest Pain: No Palpitations: No Edema: Bilateral (BLE at times ) Resp Respiratory: Positive for SOB with activity; Negative for SOB at rest, SOB orthopnea\\SOB lying down or Cough GI GI: Negative nausea, vomiting or heartburn Neuro Neuro: Positive for dizziness, headache(s) and weakness; Negative for lightheadedness or near syncope Endo Endo: Positive for fatigue Cardiology Exam Const Appearance: cooperative, healthy appearing, no acute distress, well developed and well groomed Nutritional Appearance: average body habitus and well nourished Orientation: alert, awake and oriented x3 Head Head: normal to inspection, normocephalic and atraumatic Ears: hearing grossly normal bilaterally and external ears normal Nose: external nose normal, nares normal, nasal mucous membranes and turbinates normal, septum normal and no nasal discharge Face and Sinus: face symmetric Mouth: oral mucosae normal, tongue normal, oropharynx normal and moist mucous membranes Teeth and gingiva: dentition normal Throat: posterior oropharynx normal, tonsils normal and uvula midline Eyes General: appearance normal, both eyes and all related structures Eyelids: eyelids normal Conjunctivae: conjunctivae normal Pupils: PERRL, normal by confrontation and accommodation normal EOM: EOM intact bilaterally Neck Neck: normal visual inspection, trachea midline and no JVD JVD: +5 Carotids: normal carotid upstroke and bounding pulses Chest Chest inspection: normal inspection of the chest, symmetric chest movement and normal respiratory effort Auscultation: Bilateral: Clear to Auscultation Cardio Palpation: normal PMI Rhythm: irregularly irregular Heart sounds: S1 normal, S2 normal and normal, physiologic split S2; Negative rub, gallop or murmur GI GI: normal to inspection, soft, no hepatosplenomegaly and bowel sounds present Neuro General: patient alert, patient awake, patient oriented x3, gait normal, moves all extremities and no focal sensory deficit Skin Skin: no rashes or lesions noted Extremities Pulses: Normal: Right Femoral Pulse, Left Femoral Pulse, Right Dorsalis Pedis Pulse, Left Dorsalis Pedis Pulse, Right Posterior Tibial Pulse, Left Posterior Tibial Pulse, Right Radial Pulse and Left Radial Pulse Lower Extremity Edema: None: Bilateral Musculoskel Musculoskeletal: No joint tenderness Psych Psychological: normal affect Supplemental Info Supplemental Information Echocardiogram 03/02/25 Interpretation Summary The left ventricular ejection fraction is 70 %. Stage 1 diastolic dysfunction. There is severe biatrial dilatation. Trivial to small pericardial effusion. The study was technically difficult. Stress Test 09/27/19 Impression: 1. There is no evidence of significant ischemia or infarction. 2. Estimated ejection fraction is 67%. CTA Chest 03/18/25 FINDINGS: Heart: Mild cardiomegaly. Stable small pericardial effusion. Mild coronary artery calcifications. Thoracic Aorta: No thoracic aortic aneurysm or dissection. Pulmonary Vessels: Main pulmonary artery is enlarged, and measures 3.8 cm, likely secondary to pulmonary arterial hypertension. No evidence of acute pulmonary emboli through the major subsegmental branches. Labs: HDL Cholesterol 29 mg/dL (40-) L Cholesterol 140 mg/dL (<=200) Triglycerides 115 mg/dL (-199) Diagnostics: Electrocardiogram Echocardiogram Chest X-Ray Chest CTA Venous Doppler Study Pulmonary: No Data to Display Past Visits: Cardiology Visit 05/09/25 Assessment and Plan Assessment and Plan (1) Atrial fibrillation: Status: Acute Plan: He does have chronic persistent atrial fibrillation with a controlled ventricular response rate. My suspicion is that some of his shortness of breathand heart failure episode would be better if he is in sinus rhythm I would recommend that he continue the anticoagulation and then we schedule him for a DCcardioversion. I have explained the above to him the risk benefits alternativeshe understands and agrees to proceed. (2) (HFpEF) heart failure with preserved ejection fraction: Status: Acute Plan: He does have evidence of heart failure with preserved ejection fraction. He will continue on the current guideline directed medical therapy. No major changes will be made. He may benefit from an SGLT2 inhibitor. I would also suggest that he obtain a sleep study through your outfit. (3) HTN (hypertension): Status: Chronic Qualifiers: Hypertension type: essential hypertension Qualified Code(s): I10 - Essential (primary) hypertension Plan: He does have a history of hypertension his blood pressure appears to be better controlled at this time it is elevated today and I will keep him on the same medications with no changes. Orders: Orders 12 Lead EKG performed by BMS Today I10 - Essential (primary) hypertension, I48.91 - Unspecified atrial fibrillation, I50.30 - Unspecified diastolic (congestive) heart failure, R06.02 - Shortness of breath Basic Metabolic Profile (BMP) 2 Weeks I48.91 - Unspecified atrial fibrillation Cardioversion Today I48.91 - Unspecified atrial fibrillation Medications: New dapagliflozin propanediol (Farxiga) 10 mg PO QDAY 90 tabs 3RF Discontinued potassium chloride ER Discontinued Reason: Order Changed 20 mEq PO QDAY Plan Details Follow Up: 3 Months (sd) Coding Level of Care Code Off vis,new,level 4 Diagnoses Atrial fibrillation I48.91 (HFpEF) heart failure with preserved ejection fraction I50.30 Essential hypertension I10 Hypertension type: essential hypertension Coding Level of Care Code Off vis,new,level 4 Diagnoses Atrial fibrillation I48.91 (HFpEF) heart failure with preserved ejection fraction I50.30 Essential hypertension I10 Hypertension type: essential hypertension Clinical Quality Measures Falls Risk Screening/Assistive Devices Have you fallen in the past year?: No 05/09/25 1640 <Electronically signed by Dimitris Cavanaugh> Date _ Dimitris Lucio MD [facility] Signature: Date (if applicable) CC: Dr. Pierce Wells MD ~ [facility] Work Phone: 1(359) 331-797107-02-2025 [facility] [address] [place] [address] [address] [place] [address] OFFICE VISIT Date of Service: 05/09/25 MR#: [id number] Acct: [id number] Name: JOSÉ MIGUEL YOUNG Sr. Rep #: [id number] : 1965 Provider: Dr. Ariela Lucio MD Age/Sex: 59/M Location: [facility] Status: Signed HPI HPI History of Present Illness Details: 59-year-old man with a history of hypertension, morbid obesity, shortness of breath who presented to the hospital in March of this year with severe hypertension as well as was noted to have atrial fibrillation with a rate of 93 bpm left posterior fascicular block. He underwent CT scan for evaluation which demonstrated no evidence of pulmonary embolism small pleural effusion was noted. He also underwent an echocardiogram which demonstrated an ejection fraction of 70% mild concentric left ventricular pressure for stage I diastolic dysfunction and no significant valvular abnormalities trivial to small pericardial effusion was noted. His blood work did not demonstrate any significant abnormalities other than an elevated proBNP of 1500. He was treated with antihypertensive medication and discharged. He had a readmission in March for a short period of time. He tells me that he has been doing wellsince. He has had occasional dizziness no diaphoresis no near-syncope he tells me that his Lasix has been reduced. He has been on anticoagulation. He has never been evaluated for sleepapnea. His lipid profile is also not the most favorable with a total cholesterol 140 HDL of 29 and LDL of 88. 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 Accompanied by: Significant Other Is patient in pain?: No Allergies amlodipine Allergy (Intermediate, Verified 05/09/25 15:59) Swelling gabapentin Allergy (Intermediate, Verified 05/09/25 15:59) Swelling lisinopril Allergy (Intermediate, Verified 05/09/25 15:59) cough venlafaxine (From Effexor) Allergy (Intermediate, Verified 05/09/25 15:59) Suicidal thoughts Medications ?Medication ?Instructions ?Recorded ?Confirmed ?Type guanfacine 1 mg tablet 1 tablet PO QPM BLOOD PRESSU RE 30 05/09/18 03/25/25 History days ##30 minoxidil 10 mg tablet 20 mg PO DAILY HAIR GROWTH 1 11/26/18 03/25/25 History finasteride 5 mg tablet 5 mg PO QPM 03/02/25 5 History losartan 100 mg tablet 100 mg PO DAILY 03/02/25 History nifedipine 30 mg tablet,extended 30 mg PO DAILY 03/25/25 History release 24 hr omeprazole 20 mg capsule,delayed 20 mg PO DAILY 03/25/25 History release tamsulosin 0.4 mg capsule 0.4 mg PO QHS 03/02/2503/25 History apixaban 5 mg tablet (Eliquis) 5 mg PO BID 30 days #60 tabs 03/05/25 03/25/25 Rx atenolol 100 mg tablet 100 mg PO DAILY 30 days #30 tabs 03/05/25 03/25/25 Rx dapagliflozin propanediol 10 mg 10 mg PO QDAY #90 tabs 05/09/25 05/09/25 Rx tablet (Farxiga) escitalopram oxalate 20 mg tablet 20 mg PO QDAY History furosemide 40 mg tablet 40 mg PO QDAY 05/09/25 Hist ory Have you fallen in the past year?: No PFSH Medical History Atrial fibrillation (HFpEF) heart failure with preserved ejection fraction D-dimer, elevated Morbid obesity with BMI of 50.0-59.9, adult Dyspnea Anxiety and depression HTN (hypertension) Disorder of bone, unspecified Obesity hypoventilation syndrome Surgical History No history of previous surgery Family History Father CVA (cerebral vascular accident) Cancer Mother CVA (cerebral vascular accident) Diabetes Social History Smoking Status: Never smoker alcohol intake: never ROS Const Const: Positive for fatigue, weakness and headache(s); Negative for daytime sleepiness or difficulty sleeping ENT ENT: Positive for headache(s) and dizziness; Negative for Nosebleed/epistaxis Cardio Chest Pain: No Palpitations: No Edema: Bilateral (BLE at times ) Resp Respiratory: Positive for SOB with activity; Negative for SOB at rest, SOB orthopnea\\SOB lying down or Cough GI GI: Negative nausea, vomiting or heartburn Neuro Neuro: Positive for dizziness, headache(s) and weakness; Negative for lightheadedness or near syncope Endo Endo: Positive for fatigue Cardiology Exam Const Appearance: cooperative, healthy appearing, no acute distress, well developed and well groomed Nutritional Appearance: average body habitus and well nourished Orientation: alert, awake and oriented x3 Head Head: normal to inspection, normocephalic and atraumatic Ears: hearing grossly normal bilaterally and external ears normal Nose: external nose normal, nares normal, nasal mucous membranes and turbinates normal, septum normal and no nasal discharge Face and Sinus: face symmetric Mouth: oral mucosae normal, tongue normal, oropharynx normal and moist mucous membranes Teeth and gingiva: dentition normal Throat: posterior oropharynx normal, tonsils normal and uvula midline Eyes General: appearance normal, both eyes and all related structures Eyelids: eyelids normal Conjunctivae: conjunctivae normal Pupils: PERRL, normal by confrontation and accommodation normal EOM: EOM intact bilaterally Neck Neck: normal visual inspection, trachea midline and no JVD JVD: +5 Carotids: normal carotid upstroke and bounding pulses Chest Chest inspection: normal inspection of the chest, symmetric chest movement and normal respiratory effort Auscultation: Bilateral: Clear to Auscultation Cardio Palpation: normal PMI Rhythm: irregularly irregular Heart sounds: S1 normal, S2 normal and normal, physiologic split S2; Negative rub, gallop or murmur GI GI: normal to inspection, soft, no hepatosplenomegaly and bowel sounds present Neuro General: patient alert, patient awake, patient oriented x3, gait normal, moves all extremities and no focal sensory deficit Skin Skin: no rashes or lesions noted Extremities Pulses: Normal: Right Femoral Pulse, Left Femoral Pulse, Right Dorsalis Pedis Pulse, Left Dorsalis Pedis Pulse, Right Posterior Tibial Pulse, Left Posterior Tibial Pulse, Right Radial Pulse and Left Radial Pulse Lower Extremity Edema: None: Bilateral Musculoskel Musculoskeletal: No joint tenderness Psych Psychological: normal affect Supplemental Info Supplemental Information Echocardiogram 03/02/25 Interpretation Summary The left ventricular ejection fraction is 70 %. Stage 1 diastolic dysfunction. There is severe biatrial dilatation. Trivial to small pericardial effusion. The study was technically difficult. Stress Test 09/27/19 Impression: 1. There is no evidence of significant ischemia or infarction. 2. Estimated ejection fraction is 67%. CTA Chest 03/18/25 FINDINGS: Heart: Mild cardiomegaly. Stable small pericardial effusion. Mild coronary artery calcifications. Thoracic Aorta: No thoracic aortic aneurysm or dissection. Pulmonary Vessels: Main pulmonary artery is enlarged, and measures 3.8 cm, likely secondary to pulmonary arterial hypertension. No evidence of acute pulmonary emboli through the major subsegmental branches. Labs: HDL Cholesterol 29 mg/dL (40-) L Cholesterol 140 mg/dL (<=200) Triglycerides 115 mg/dL (-199) Diagnostics: Electrocardiogram Echocardiogram Chest X-Ray Chest CTA Venous Doppler Study Pulmonary: No Data to Display Past Visits: Cardiology Visit 05/09/25 Assessment and Plan Assessment and Plan (1) Atrial fibrillation: Status: Acute Plan: He does have chronic persistent atrial fibrillation with a controlled ventricular response rate. Mysuspicion is that some of his shortness of breathand heart failure episode would be better if he isin sinus rhythm I would recommend that he continue the anticoagulation and then we schedule him fora DCcardioversion. I have explained the above to him the risk benefits alternativeshe understands and agrees to proceed. (2) (HFpEF) heart failure with preserved ejection fraction: Status: Acute Plan: He does have evidence of heart failure with preserved ejection fraction. He will continue on the current guideline directed medical therapy. No major changes will be made. He may benefit from an SGLT2 inhibitor. I would also suggest that he obtain a sleep study through your outfit. (3) HTN (hypertension): Status: Chronic Qualifiers: Hypertension type: essential hypertension Qualified Code(s): I10 - Essential (primary) hypertension Plan: He does have a history of hypertension his blood pressure appears to be better controlled at this time it is elevated today and I will keep him on the same medications with no changes. Orders: Orders 12 Lead EKG performed by BMS Today I10 - Essential (primary) hypertension, I48.91 - Unspecified atrial fibrillation, I50.30 - Unspecified diastolic (congestive) heart failure, R06.02 - Shortness of breath Basic Metabolic Profile (BMP) 2 Weeks I48.91 - Unspecified atrial fibrillation Cardioversion Today I48.91 - Unspecified atrial fibrillation Medications: New dapagliflozin propanediol (Farxiga) 10 mg PO QDAY 90 tabs 3RF Discontinued potassium chloride ER Discontinued Reason: Order Changed 20 mEq PO QDAY Plan Details Follow Up: 3 Months (sd) Coding Level of Care Code Off vis,new,level 4 Diagnoses Atrial fibrillation I48.91 (HFpEF) heart failure with preserved ejection fraction I50.30 Essential hypertension I10 Hypertension type: essential hypertension Coding Level of Care Code Off vis,new,level 4 Diagnoses Atrial fibrillation I48.91 (HFpEF) heart failure with preserved ejection fraction I50.30 Essential hypertension I10 Hypertension type: essential hypertension Clinical Quality Measures Falls Risk Screening/Assistive Devices Have you fallen in the past year?: No 05/09/25 1640 D> Date _ Dimitris Lucio MD Cosigner Signature: Date (if applicable) CC: Dr. Pierce Wells MD ~ [facility]06-28-2025 History of Present illness Narrative* Pierce Wells MD - 05/05/2025 9:00 AM EDT Chief Complaint Patient presents with: F/U 1 month HPI José Miguel Young . is a 59 year old male who presents here today for 1 month follow up. Currently off on FMLA for 3 months. has applied for disability for her. 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 No bowel, Gi, or urinary issues. Hypokalemia: Diuretic induced; monitored with labs. Taking Potassium 20 mEq 1 pill BID. HTN/A-fib/CHF: Referred to Cardio, first visit on 05/09/25 with [facility], Dr. Lucio. Taking Eliquis 5 mg 1 pill BID, Atenolol 100 mg daily, Lasix 40 mg 1 pill BID, Losartan 100 mg daily, Loniten 10 mg 2 pills once daily, Procardia 30 mg daily, and Potassium 20 mEq 1 pill BID. He would liketo switch to non chewable aspirin, tends to forget to take it as he takes all his pills when his teeth are not in. He wants an Rx for Tylenol. Has been taking tylenol 500 mg 2 pills TID. Still havingdizziness and Shortness of Breath, dizziness every time he stands up. Denies any chest pains. Does have swelling in feet and ankles daily, improves over night, L>R. Checking BP at home with readings running 130/80 or lower. Checking Pulse and pulse ox at home, running around 93% or higher on Pulse Ox. Depression: has worsened over the last month since his health issues and inability to work. Has stress financially. He is more irritable. Is taking Lexapro 10 mg daily, feels this needs increased. Thinks about dying but denies any intention to harm himself. He is tired, doesn't sleep. When he does sleep it is only for a few hours with trouble going back to sleep. Past medical history, appointments, medications, allergies reviewed. Previous Medical History PAST MEDICAL HISTORY Diagnosis Date Unspecified essential hypertension Previous Surgical History PAST SURGICAL HISTORY Procedure Laterality Date PAST SURGICAL HISTORY OF removal cyst upper back Family History FAMILY HISTORY Problem Relation Age of Onset Diabetes Mother Hypertension Mother Stroke Father other (Lung cancer) Father Diabetes Brother Patient Allergies ALLERGIES Allergen Reactions Effexor [Venlafaxin* Mental Status Change Suicidal thoughts Gabapentin Swelling Leg swelling Amlodipine Other: See Comments leg swelling Lisinopril Cough Current Medications Current Outpatient Medications on File Prior to Visit Medication Sig furosemide (LASIX) 40 mg tablet Take 1 tablet by mouth two times a day. potassium chloride ER (KLOR-CON) 20 mEq tablet Take 1 tablet by mouth two times a day. atenolol (TENORMIN) 100 mg tablet Take 100 mg by mouth once daily. Aspirin 81 mg tab Take 81 mg by mouth once daily. apixaban (ELIQUIS) 5 mg tab(s) Take 5 mg by mouth two times a day. escitalopram oxalate (LEXAPRO) 10 mg tablet Take 1 tablet by mouth once daily. minoxidil (LONITEN) 10 mg tablet Take 2 tablets by mouth once daily. finasteride (PROSCAR) 5 mg tablet Take 1 tablet by mouth once daily. tamsulosin (FLOMAX) 0.4 mg Take 1 capsule by mouth daily at bedtime. omeprazole (PRILOSEC) 20 mg capsule Take 1 capsule by mouth daily before breakfast. 1/2 hr before meal. NIFEdipine ER (PROCARDIA XL) 30 mg 24 hr tablet Take 1 tablet by mouth once daily. guanFACINE (TENEX) 1 mg tablet Take 1 tablet by mouth daily at bedtime. losartan (COZAAR) 100 mg tablet Take 1 tablet by mouth once daily. No current facility-administered medications on file prior to visit. Social History Social History Tobacco Use Smoking status: Never Smokeless tobacco: Former Types: Chew Quit date: 10/19/2010 Tobacco comments: Quit chewing 5years Substance Use Topics Alcohol use: No Drug use: No EXAM: BP 128/80 Pulse 78 Resp 18 Wt (!) 145.1 kg (319 lb 14.2 oz) SpO2 95% BMI 49.36 kg/m General Appearance: Well appearing, alert, in no acute distress, well-hydrated, well nourished. andMorbidly obese. Lungs: Lungs clear to auscultation. No wheezing, rhonchi, rales.. Heart: irregular. Health Maintenance List Depression Screening Never done Shingrix Vaccine(1 of 2) Never done Pneumococcal Vaccine: 50+(2 of 2 - PCV) due on 08/26/2017 Annual PCP Team Chronic Disease Visit due on 03/30/2026 Colorectal Cancer Screening due on 10/23/2027 Diabetes Screening due on 03/30/2028 Lipid Screening due on 09/12/2029 Prostate Cancer Screening Discussion due on 09/12/2029 DTaP,Tdap,Td Vaccine(3 - Td or Tdap) due on 07/03/2032 Influenza Vaccine Completed Hepatitis C Screening Discontinued HIV Screening Discontinued Covid-19 Vaccine Discontinued Data reviewed Appointment on 03/30/2025 Component Date Value Protein, Total 03/30/2025 8.1 (H) Albumin 03/30/2025 4.5 Calcium, Total 03/30/2025 9.6 Bilirubin, Total 03/30/2025 0.6 Alkaline Phosphatase 03/30/2025 52 AST 03/30/2025 38 ALT 03/30/2025 27 Glucose 03/30/2025 98 BUN 03/30/2025 17 Creatinine 03/30/2025 0.98 Sodium 03/30/2025 141 Potassium 03/30/2025 4.4 Chloride 03/30/2025 103 CO2 03/30/2025 26 Anion Gap 03/30/2025 12 Estimated Glomerular Jose J* 03/30/2025 89 WBC 03/30/2025 5.18 RBC 03/30/2025 4.85 Hemoglobin 03/30/2025 13.9 Hematocrit 03/30/2025 42.1 MCV 03/30/2025 86.8 MCH 03/30/2025 28.7 MCHC 03/30/2025 33.0 RDW-CV 03/30/2025 13.2 Platelet Count 03/30/2025 291 MPV 03/30/2025 10.2 Absolute nRBC 03/30/2025 <0.01 1. Heart failure, unspecified HF chronicity, unspecified heart failure type (HCC) (I50.9) - Experiencing orthostatic dizziness, dyspnea on exertion, and peripheral edema, worse in the evenings and with increased fluid intake due to humidity. - Currently on Lasix twice daily; reduced dosage to once daily to address potential over-diuresis contributing to dizziness. - Concurrently reduced potassium supplementation to once daily. - Scheduled follow-up with spinning mule operator Dr. Lucio next week. - Ordered lab work to monitor renal function and electrolytes; patient to complete labs today. - Follow-up in one month to reassess symptoms and lab results. 2. Reactive depression (F32.9) - Symptoms include anhedonia, insomnia, and feelings of hopelessness. - Current medication: Escitalopram 10 mg daily; increased dosage to 20 mg daily. - Discussed potential benefits of counseling; patient advised to consider therapy. - Continue melatonin 30 mg nightly as adjunct for sleep. - Follow-up in one month to evaluate response to medication adjustment. 3. Essential hypertension (I10) - Blood pressure readings stable, today is 128/80 mmHg. - Continue current antihypertensive regimen. - Monitor blood pressure at home, especially with changes in Lasix dosage. 4. Atrial fibrillation, unspecified type (HCC) (I48.91) - No new symptoms reported. - Continue current management; will discuss any necessary adjustments with spinning mule operator Dr. Lucio during upcoming appointment. 5. Chronic bilateral low back pain without sciatica (M54.50) - Persistent back pain; currently taking Tylenol 500 mg, two tablets three times daily. - Sent prescription for Tylenol to [facility]. - Discussed use of non-chewable aspirin; prescription sent to [facility]. - Advised continuation of current pain management regimen. Follow up in 1 month I agree with the Chief Complaint, ROS, and Past Histories independently gathered by the clinical academic support assistant and the remaining scribed note accurately describes my personal service to the patient. Recording using [employer] software for draft documentation of the visit was discussed with the patient/authorized service center representative; all questions welcomed and answered. Patient/authorized service center representative agreed to proceed Medical Decision Making: Problems: Moderate: 1+ chronic illnesses with change and 2+ stable chronic illnesses Risk: Moderate: Drug management Medical Decision Making Level: 4 - Moderate Pierce Wells MD The documentation for this note was completed by Ruby Lee MA acting as scribe for Pierce Wells MD. May 05, 2025 8:35 AM. Ruby Lee MA documented in this encounterCos[facility]06-28-[facility] NoteHNO ID: [id number] Author: PIERCE WELLS MD Service: ? Author Type: Physician Type: Progress Notes Filed: 05/05/2025 10:22 Note Text: Chief Complaint Patient presents with: F/U 1 month HPI José Miguel Owen Atilio . is a 59 year old male who presents here today for 1 month follow up. Currently off on FMLA for 3 months. has applied for disability for her. 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 No bowel, Gi, or urinary issues. Hypokalemia: Diuretic induced; monitored with labs. Taking Potassium 20 mEq 1 pill BID. HTN/A-fib/CHF: Referred to Cardio, first visit on 05/09/25 with [facility], Dr. Lucio. Taking Eliquis 5 mg 1 pill BID, Atenolol 100 mg daily, Lasix 40 mg 1 pill BID, Losartan 100 mg daily, Loniten 10 mg 2 pills once daily, Procardia 30 mg daily, and Potassium 20 mEq 1 pill BID. He would like to switch to non chewable aspirin, tends to forget to take it as he takes all his pills when his teeth are not in. He wants an Rx for Tylenol. Has been taking tylenol 500 mg 2 pills TID. Still having dizziness and Shortness of Breath, dizziness every time he stands up. Denies any chest pains. Does have swelling in feet and ankles daily, improves over night, L>R. Checking BP at home with readings running 130/80 or lower. Checking Pulse and pulse ox at home, running around 93% or higher on Pulse Ox. Depression: has worsened over the last month since his health issues and inability to work. Has stress financially. He is more irritable. Is taking Lexapro 10 mg daily, feels this needs increased. Thinks about dying but denies any intention to harm himself. He is tired, doesn't sleep. When he does sleep it is only for a few hours with trouble going back to sleep. Past medical history, appointments, medications, allergies reviewed. Previous Medical History PAST MEDICAL HISTORY Diagnosis Date Unspecified essential hypertension Previous Surgical History PAST SURGICAL HISTORY Procedure Laterality Date PAST SURGICAL HISTORY OF removal cyst upper back Family History FAMILY HISTORY Problem Relation Age of Onset Diabetes Mother Hypertension Mother Stroke Father other (Lung cancer) Father Diabetes Brother Patient Allergies ALLERGIES Allergen Reactions Effexor [Venlafaxin* Mental Status Change Suicidal thoughts Gabapentin Swelling Leg swelling Amlodipine Other: See Comments leg swelling Lisinopril Cough Current Medications Current Outpatient Medications on File Prior to Visit Medication Sig furosemide (LASIX) 40 mg tablet Take 1 tablet by mouth two times a day. potassium chloride ER (KLOR-CON) 20 mEq tablet Take 1 tablet by mouth two times a day. atenolol (TENORMIN) 100 mg tablet Take 100 mg by mouth once daily. Aspirin 81 mg tab Take 81 mg by mouth once daily. apixaban (ELIQUIS) 5 mg tab(s) Take 5 mg by mouth two times a day. escitalopram oxalate (LEXAPRO) 10 mg tablet Take 1 tablet by mouth once daily. minoxidil (LONITEN) 10 mg tablet Take 2 tablets by mouth once daily. finasteride (PROSCAR) 5 mg tablet Take 1 tablet by mouth once daily. tamsulosin (FLOMAX) 0.4 mg Take 1 capsule by mouth daily at bedtime. omeprazole (PRILOSEC) 20 mg capsule Take 1 capsule by mouth daily before breakfast. 1/2 hr before meal. NIFEdipine ER (PROCARDIA XL) 30 mg 24 hr tablet Take 1 tablet by mouth once daily. guanFACINE (TENEX) 1 mg tablet Take 1 tablet by mouth daily at bedtime. losartan (COZAAR) 100 mg tablet Take 1 tablet by mouth once daily. No current facility-administered medications on file prior to visit. Social History Social History Tobacco Use Smoking status: Never Smokeless tobacco: Former Types: Chew Quit date: 10/19/2010 Tobacco comments: Quit chewing 5years Substance Use Topics Alcohol use: No Drug use: No EXAM: BP 128/80 Pulse 78 Resp 18 Wt (!) 145.1 kg (319 lb 14.2 oz) SpO2 95% BMI 49.36 kg/m? General Appearance: Well appearing, alert, in no acute distress, well-hydrated, well nourished. and Morbidly obese. Lungs: Lungs clear to auscultation. No wheezing, rhonchi, rales.. Heart: irregular. Health Maintenance List Depression Screening Never done Shingrix Vaccine(1 of 2) Never done Pneumococcal Vaccine: 50+(2 of 2 - PCV) due on 08/26/2017 Annual PCP Team Chronic Disease Visit due on 03/30/2026 Colorectal Cancer Screening due on 10/23/2027 Diabetes Screening due on 03/30/2028 Lipid Screening due on 09/12/2029 Prostate Cancer Screening Discussion due on 09/12/2029 DTaP,Tdap,Td Vaccine(3 - Td or Tdap) due on 07/03/2032 Influenza Vaccine Completed Hepatitis C Screening Discontinued HIV Screening Discontinued Covid-19 Vaccine Discontinued Data reviewed Appointment on 03/30/2025 Component Date Value Protein, Total 03/30/2025 8.1 (H) Albumin 03/30/2025 4.5 Calcium, Total 03/30/2025 9.6 Bilirubin, Total 03/30/2025 0.6 Alkaline Phosphatase 03/30/2025 52 AST 03/30/2025 38 ALT (more content not included)...[facility]06-17-2025 Telephone encounter Note* Telephone Encounter - Pierce Wells MD - 04/24/2025 5:00 PM EDT Noted Pierce Wells MD [facility]06-17-2025 Miscellaneous Notes* Telephone Encounter - Pierce Wells MD - 04/24/2025 5:00 PM EDT Noted Pierce Wells MD * Telephone Encounter - Mona Coughlin RN - 04/18/2025 12:53 PM EDT Patient's calls and states that patient's blood pressures have been all over the place. states that for the past couple of days patient has woken up with headaches. Patient also has a lot of back pain. asking if back pain could cause the elevated blood pressure. Patient's blood pressure currently is 170/110; 174/96. Advised that with patient having this elevated of blood pressure and that patient has headache patient needs to go to ED to be evaluated. voices understanding but patient does not want to go to ED. Please review and advise, Mona Coughlin RN documented in this encounterCoshocton [facility]06-11-2025 Telephone encounter Note * Telephone Encounter - Mona Coughlin RN - 04/18/2025 12:53 PM EDT Patient's calls and states that patient's blood pressures have been all over the place. states that for the past couple of days patient has woken up with headaches. Patient also has a lot of back pain. asking if back pain could cause the elevated blood pressure. Patient's blood pressure currently is 170/110; 174/96. Advised that with patient having this elevated of blood pressure and that patient has headache patient needs to go to ED to be evaluated. voices understanding but patient does not want to go to ED. Please review and advise, Mona Coughlin RN [facility]05-27-2025 Telephone encounter Note* Telephone Encounter - Ruby Lee MA - 04/03/2025 9:56 AM EDT Spoke with Blanca, she will worm picker paperwork. Copy made for records, originals at med rec. Ruby Lee MA [facility]05-27-2025 Miscellaneous Notes* Telephone Encounter - Ruby Lee MA - 04/03/2025 9:56 AM EDT Spoke with Blanca, she will worm picker paperwork. Copy made for records, originals at med rec. Ruby Lee MA * Telephone Encounter - Angela Ojeda RN - 04/03/2025 9:40 AM EDT Pts called in asking if FMLA paperwork had been faxed to the number on it. Please call and letwife know if it has been taken care of. Angela Ojeda RN * Telephone Encounter - Madison Marie MA - 03/27/2025 2:47 PM EDT Type of form: FMLA Form received via walk in When form is completed, Pt has upcoming appt on 03/30/25 for hospital follow up Form has been forwarded to upcoming appt folder. Madison Marie MA documented in this encounterCos[facility]cton [facility]05-27-2025 Telephone encounter Note * Telephone Encounter - Angela Ojeda RN - 04/03/2025 9:40 AM EDT Pts called in asking if FMLA paperwork had been faxed to the number on it. Please call and letwife know if it has been taken care of. Angela Ojeda RN [facility]05-23-2025 NoteHNO ID: [id number] Author: PIERCE WELLS MD Service: ? Author Type: Physician Type: Progress Notes Filed: 03/30/2025 15:11 Note Text: Transitional Care Management TCM Eligibility Documentation The following information was gathered during patient outreach 03/23/2025 03/23/2025 Date of Outreach: Outreach Attempt 1: Contact Made Contact Made Date of Discharge 03/22/2025 03/22/2025 Provider Documentation José Miguel Young Sr. is a 59 year old male here today for a follow up from recent hospitalization. I have reviewed the patient's hospital course including discharge summary, discharge medications , and follow up needs with the patient and any family members present at today's visit. HPI 10 day TCM Pt feels like his energy level is improving. Pt referred to Cardiology for A-fib, pt requested to stay with [facility] as [facility] has not returned their multiple calls. Having difficulty finding provider who takes their insurance. Pt was advised to increase Lasix from 20 mg every other day to 40 mg 1 pill BID and started on Potassium chloride 20 mEq 1 pill BID. Swelling in legs has improved. Per spouse, Patient started on Eliquis 5 mg twice daily, D/C Aspirin 325 mg daily, Start Baby ASA 81 mg daily, D/C atenolol with chlorthalidone, Start atenolol 100 mg daily, and D/C ibuprofen 800 mg. No chest pains, dizziness, or SOB. Spouse dropping off paperwork for FMLA and has also applied for Social Security Disability. Pt thought he had short term disability through work but found out he doesn't. He was advised that since he is on the blood thinner now that he needs to be careful not to hit his head and that if he does he needs to seek immediate treatment at an ER. 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 Pt doesn't feel he should return to work until he knows his health is better and not going to harm others. Below copied from [employer]: Chief Complaint: Shortness of Breath Informant: patient Onset/Context/Timing Onset: Days Context: Gradual Onset Timing: Continuous Worsened by: exertion Narrative Narrative: Patient presents for shortness of breath. Recent admission with an echocardiogram and he was told he had CHF. He takes Lasix every other day and has been compliant. He is also compliant with his anticoagulation which he started for atrial fibrillation. He is denying any chest pain, fever, GI symptoms. 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 Medical decision making narrative: Patient had an EKG that I interpreted. It showed atrial fibrillation with no evidence of ischemia or infarction pattern. He was placed on the monitor. He was found to be hypoxic in the upper 80s on room air and required 2 L nasal cannula. Everything sounded more like cardiac, heart failure. He did not have infectious symptoms and did not have chest pain. He is compliant with his Eliquis so PE was felt to be unlikely. Patient later required 3 L of nasal cannula. This is new for him. His workup looked pretty good. Troponin was normal. BNP is elevated but stable. Chest x-ray was reviewed by me and the radiologist. Showed pulmonary edema pattern. Patient was treated with a dose of Lasix here. He is taking Lasix every other day and I believe he needs more aggressive diuresis. However his creatinine is starting to elevate. It is 1.3 here today which was elevated from his baseline. I suspect this will continue to rise with further treatment. He is requiring oxygen and will need close monitoring. I contacted the hospitalist to admit for further care. Patient will be admitted for observation to PCU. Impression #1 CHF Impression #2 hypoxic respiratory failure Impression #3 elevated creatinine Minutes Spent on Discharge: 45 Hospital Course: Patient is a 59-year-old male with a past medical history as outlined was admitted to the ED on 03/18/2025 with a complaint of shortness of breath. His symptoms started about 1 to 2 days prior to admission and he had associated persistent shortness of breath. Symptoms were worsened by exertion with respiratory rate of 33 breaths/min. He was requiring 3 L of oxygen at time of admission. His initial blood pressure was also markedly elevated at 194/104. CT chest showed bilateral pleural effusions and ground glass opacities concerning for pulmoonary edema with mild cardiomegaly and stable, small perciardial effusion and finding suggestive of pulmonary edema. He was admitted to be managed for acute hypoxia due to hypertensive urgency and acute exacerbation of HFp (more content not included)...[facility]05-20-2025 Telephone encounter Note* Telephone Encounter - Madison Marie MA - 03/27/2025 2:47 PM EDT Type of form: FMLA Form received via walk in When form is completed, Pt has upcoming appt on 03/30/25 for hospital follow up Form has been forwarded to upcoming appt folder. Madison Marie MA [facility]05-19-2025 NoteHNO ID: [id number] Author: RUBY LEE MA Service: ? Author Type: Carpenter Assembler Type: Progress Notes Filed: 03/26/2025 10:10 Note Text: Pt went to [facility] ER for his diarrhea. Was not admitted. Report added to hospital records for his appt 03/30/25. [facility] History of Present illness Narrative* Ruby Lee MA - 03/26/2025 10:10 AM EDT Pt went to [facility] ER for his diarrhea. Was not admitted. Report added to hospital records for his appt03/30/25. Ruby Lee MA * Ruby Lee MA - 03/23/2025 11:13 AM EDT Message left for pt to call back. * Pierce Wells MD - 03/23/2025 10:05 AM EDT I would not expect any of those medications to cause diarrhea; he may try using OTC Imodium to helpcontrol the diarrhea Pierce Wells MD * Braeden Valdes, RN - 03/23/2025 8:12 AM EDT TRANSITION CARE MANAGEMENT (TCM) INITIAL CONTACT Carpenter Assembler Outreach Provider Action/FYI: 10 day TCM Called pt to on 03/23/25, message left. See other TE as well. Pt referred to Cardiology for A-fib, pt requested to stay with [facility] as [facility] has not returned their multiple calls. Pt was advised to increase Lasix from 20 mg every other day to 40 mg 1 pill BID and started on Potassium chloride 20 mEq 1 pill BID. Spouse calls back reports diarrhea since before leaving hospital. Patient has tried Pepto Bismol chewables 2 last evening and a half a bottle of Pepto Bismol since the middle of the night until this morning with no relief. Asking if could be related to any medications newly prescribed. Per spouse, Patient started on Eliquis 5 mg twice daily, D/C Aspirin 325 mg daily, Start Baby ASA 81 mg daily, D/C atenolol with chlorthalidone, Start atenolol 100 mg daily, and D/C ibuprofen 800 mg. Spouse dropping off paperwork for FMLA and has also applied for Social Security Disability. Initial contact with patient post discharge, spoke to message left 03/23/25 to call office back. Patient identified by name and . TRANSITION CARE MANAGEMENT INITIAL OUTREACH DOCUMENTATION: 03/23/2025 Date of Outreach: Outreach Attempt 1: Contact Made Date of Discharge 03/22/2025 SUMMARY: -Pt discharged from [facility] on 03/22/25. -Admitted for: 1) Hypertensive Urgency 2) heart failure with preserved ejection fraction Below copied from [employer]: Chief Complaint: Shortness of Breath Informant: patient Onset/Context/Timing Onset: Days Context: Gradual Onset Timing: Continuous Worsened by: exertion Narrative Narrative: Patient presents for shortness of breath. Recent admission with an echocardiogram and he was told he had CHF. He takes Lasix every other day and has been compliant. He is also compliant with his anticoagulation which he started for atrial fibrillation. He is denying any chest pain, fever, GI symptom s. 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 Medical decision making narrative: Patient had an EKG that I interpreted. It showed atrial fibrillation with no evidence of ischemia or infarction pattern. He was placed on the monitor. He was found to be hypoxic in the upper 80s on room air and required 2 L nasal cannula. Everything sounded more like cardiac, heart failure. He did not have infectious symptoms and did not have chest pain. He is compliant with his Eliquis so PE was felt to be unlikely. Patient later required 3 L of nasal cannula. This is new for him. His workup looked pretty good. Troponin was normal. BNP is elevated but stable. Chest x-ray was reviewed by me and the radiologist. Showed pulmonary edema pattern. Patient was treated with a dose of Lasix here. He is taking Lasix every other day and I believe he needs more aggressive diuresis. However his creatinine is starting to elevate. It is 1.3 here today which was elevated from his baseline. I suspect this will continue to rise with further treatment. He is requiring oxygen and will need close monitoring. I contacted the hospitalist to admit for further care. Patient will be admitted for observation to PCU. Impression #1 CHF Impression #2 hypoxic respiratory failure Impression #3 elevated creatinine Minutes Spent on Discharge: 45 Hospital Course: Patient is a 59-year-old male with a past medical history as outlined was admitted to the ED on 03/18/2025 with a complaint of shortness of breath. His symptoms started about 1 to 2 days prior to admission and he had associated persistent shortness of breath. Symptoms were worsened by exertion with r espiratory rate of 33 breaths/min. He was requiring 3 L of oxygen at time of admission. His initialblood pressure was also markedly elevated at 194/104. CT chest showed bilateral pleural effusions and ground glass opacities concerning for pulmoonary edema with mild cardiomegaly and stable, small perciardial effusion and finding suggestive of pulmonary edema. He was admitted to be managed for acute hypoxia due to hypertensive urgency and acute exacerbation of HFpEF. He was diuresed with IV Lasix.CT of the abdomen and pelvis showed cardiomegaly he had 2D echo which showed EF of 70% with stage I diastolic dysfunction. His hypertension improved and blood pressure control improved significantly. His shortness of breath improved and he was weaned down to room air. He was discharged home on 03/22/2025 with a prescription for p.o. Lasix 40 mg twice daily with potassium supplementation to prevent hypokalemia. He also discharged on his home dose of atenolol and nifedipine. He is follow-up with his primary care doctor within 1 to 2 weeks. Patient seen and examined prior to discharge. He had no active complaints. Review of systems otherwise negative. Labs and vitals reviewed. Home medication reviewed and reconciled. Do you have a hospital follow up appointment with your PCP? Appointment on 04/01/25 with PCP. Yes. Remind patient of appointment date, time, and location. If not within 14 calendar days of discharge - please reschedule accordingly. MEDICATIONS: Many patients have questions or concerns about their medications once they are home. Were you prescribed any new medications? If yes, what are those medications? Lasix 40 mg 1 pill BID Potassium Chloride 20 mEq 1 pill BID Were you told to hold any medications? No Were any of your medications discontinued? If yes, what are those medications? Lasix 20 mg every other day Do you have any questions about getting or taking your medications? No Your discharge instructions/After visit Summary (AVS) are important in guiding you through the recovery process. Is there anything I might help you understand? No Do you have all the necessary equipment and supplies at home? Yes, Spouse ordered a pulse oximeter and a BP monitor. Medical records from recent hospitalization: Placed for provider to review [facility] Telephone encounter Note * Telephone Encounter - Malissa Amaya RN - 03/25/2025 12:07 AM EDT Reason for Call: Diarrhea since 03/22 Outcome: Be seen within 24 hours agrees to do this Reason for Disposition [1] MODERATE diarrhea (e.g., 4-6 times / day more than normal) AND [2] present > 48 hours (2 days) Answer Assessment - Initial Assessment Questions 1. DIARRHEA SEVERITY: 5 episodes of Diarrhea today 2. ONSET: 03/22/25 3. STOOL DESCRIPTION: watery 4. VOMITING: no 5. ABDOMEN PAIN: no ORAL INTAKE: Patient is on orders to limit to 50 oz of fluid due to retention HYDRATION: last urine 10 minutes ago, no dizziness EXPOSURE: Was recently in hospital, no other travel ANTIBIOTIC USE: no OTHER SYMPTOMS: no Protocols used: [id number] [facility]05-18-[facility]25 Miscellaneous Notes* Telephone Encounter - Malissa Amaya RN - 03/25/2025 12:07 AM EDT Reason for Call: Diarrhea since 03/22 Outcome: Be seen within 24 hours agrees to do this Reason for Disposition [1] MODERATE diarrhea (e.g., 4-6 times / day more than normal) AND [2] present > 48 hours (2 days) Answer Assessment - Initial Assessment Questions 1. DIARRHEA SEVERITY: 5 episodes of Diarrhea today 2. ONSET: 03/22/25 3. STOOL DESCRIPTION: watery 4. VOMITING: no 5. ABDOMEN PAIN: no ORAL INTAKE: Patient is on orders to limit to 50 oz of fluid due to retention HYDRATION: last urine 10 minutes ago, no dizziness EXPOSURE: Was recently in hospital, no other travel ANTIBIOTIC USE: no OTHER SYMPTOMS: no Protocols used: [id number] documented in this encounterCoshoct[facility]05-16-[facility]25 NoteHNO ID: [id number] Author: RUBY LEE MA Service: ? Author Type: Carpenter Assembler Type: Progress Notes Filed: 03/26/2025 10:10 Note Text: Message left for pt to call back.[facility]05-16-2025 NoteHNO ID: [id number] Author: PIERCE WELLS MD Service: ? Author Type: Physician Type: Progress Notes Filed: 03/26/2025 10:10 Note Text: I would not expect any of those medications to cause diarrhea; he may try using OTC Imodium to help control the diarrhea Pierce Wells, [facility]05-16-2025 Telephone encounter Note* Telephone Encounter - Braeden Valdes RN - 03/23/2025 8:49 AM EDT Spouse calls back. Transferred to schedule cardiology referral. See patient outreach encounter as well. Braeden Valdes RN [facility]05-16-2025 Miscellaneous Notes* Telephone Encounter - Braeden Valdes RN - 03/23/2025 8:49 AM EDT Spouse calls back. Transferred to schedule cardiology referral. See patient outreach encounter as well. Braeden Valdes RN * Telephone Encounter - Ruby Lee MA - 03/23/2025 8:11 AM EDT Message left for pt or to call back. Please assist with setting up Cardio appt and complete Transition of Care/Pt Outreach encounter started for pt hospital follow up. Ruby Lee MA * Telephone Encounter - Pierce Wells MD - 03/22/2025 5:07 PM EDT Cardiology consult ordered Pierce Wells MD * Telephone Encounter - Braeden Valdes RN - 03/22/2025 4:50 PM EDT Patient is currently at [facility] to be discharging possibly today. Spouse calls to request a referral to [facility]. She reports that last time patient was at [facility] referred to [facility] for Afib and she has contacted them three times with no returncall to schedule an appointment. Spouse requests call back at [phone] to schedule. Patient scheduled for Hospital Follow Up on 03/30/2025 from previous hospitalization. Please review and advise, Braeden Valdes RN documented in this encounterCosho[facility]05-16-2025 NoteHNO ID: [id number] Author: BRAEDEN VALDES RN Service: ? Author Type: Registered Nurse Type: Progress Notes Filed: 03/26/2025 10:10 Note Text: TRANSITION CARE MANAGEMENT (TCM) INITIAL CONTACT Carpenter Assembler Outreach Provider Action/FYI: 10 day TCM Called pt to on 03/23/25, message left. See other TE as well. Pt referred to Cardiology for A-fib, pt requested to stay with [facility] as [facility] has not returned their multiple calls. Pt was advised to increase Lasix from 20 mg every other day to 40 mg 1 pill BID and started on Potassium chloride 20 mEq 1 pill BID. Spouse calls back reports diarrhea since before leaving hospital. Patient has tried Pepto Bismol chewables 2 last evening and a half a bottle of Pepto Bismol since the middle of the night until this morning with no relief. Asking if could be related to any medications newly prescribed. Per spouse, Patient started on Eliquis 5 mg twice daily, D/C Aspirin 325 mg daily, Start Baby ASA 81 mg daily, D/C atenolol with chlorthalidone, Start atenolol 100 mg daily, and D/C ibuprofen 800 mg. Spouse dropping off paperwork for FMLA and has also applied for Social Security Disability. Initial contact with patient post discharge, spoke to message left 03/23/25 to call office back. Patient identified by name and . TRANSITION CARE MANAGEMENT INITIAL OUTREACH DOCUMENTATION: 03/23/2025 Date of Outreach: Outreach Attempt 1: Contact Made Date of Discharge 03/22/2025 SUMMARY: -Pt discharged from [facility] on 03/22/25. -Admitted for: 1) Hypertensive Urgency 2) heart failure with preserved ejection fraction Below copied from [employer]: Chief Complaint: Shortness of Breath Informant: patient Onset/Context/Timing Onset: Days Context: Gradual Onset Timing: Continuous Worsened by: exertion Narrative Narrative: Patient presents for shortness of breath. Recent admission with an echocardiogram and he was told he had CHF. He takes Lasix every other day and has been compliant. He is also compliant with his anticoagulation which he started for atrial fibrillation. He is denying any chest pain, fever, GI symptoms. 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 Medical decision making narrative: Patient had an EKG that I interpreted. It showed atrial fibrillation with no evidence of ischemia or infarction pattern. He was placed on the monitor. He was found to be hypoxic in the upper 80s on room air and required 2 L nasal cannula. Everything sounded more like cardiac, heart failure. He did not have infectious symptoms and did not have chest pain. He is compliant with his Eliquis so PE was felt to be unlikely. Patient later required 3 L of nasal cannula. This is new for him. His workup looked pretty good. Troponin was normal. BNP is elevated but stable. Chest x-ray was reviewed by me and the radiologist. Showed pulmonary edema pattern. Patient was treated with a dose of Lasix here. He is taking Lasix every other day and I believe he needs more aggressive diuresis. However his creatinine is starting to elevate. It is 1.3 here today which was elevated from his baseline. I suspect this will continue to rise with further treatment. He is requiring oxygen and will need close monitoring. I contacted the hospitalist to admit for further care. Patient will be admitted for observation to PCU. Impression #1 CHF Impression #2 hypoxic respiratory failure Impression #3 elevated creatinine Minutes Spent on Discharge: 45 Hospital Course: Patient is a 59-year-old male with a past medical history as outlined was admitted to the ED on 03/18/2025 with a complaint of shortness of breath. His symptoms started about 1 to 2 days prior to admission and he had associated persistent shortness of breath. Symptoms were worsened by exertion with respiratory rate of 33 breaths/min. He was requiring 3 L of oxygen at time of admission. His initial blood pressure was also markedly elevated at 194/104. CT chest showed bilateral pleural effusions and ground glass opacities concerning for pulmoonary edema with mild cardiomegaly and stable, small perciardial effusion and finding suggestive of pulmonary edema. He was admitted to be managed for acute hypoxia due to hypertensive urgency and acute exacerbation of HFpEF. He was diuresed with IV Lasix.CT of the abdomen and pelvis showed cardiomegaly he had 2D echo which showed EF of 70% with stage I diastolic dysfunction. His hypertension improved and blood pressure control improved significantly. His shortness of breath improved and he was weaned down to room air. He was discharged home on 03/22/2025 with a prescription for p.o. Lasix 40 mg twice daily with potassium supplementation to prevent hypokalemia. He also discharged on his home dose of atenolol and nifedipine. He is follow-up with his primary care doctor within 1 to 2 weeks. Patient seen and examined prior to discharge. (more content not included)... [facility]05-16-2025 Telephone encounter Note* Telephone Encounter - Ruby Lee MA - 03/23/2025 8:11 AM EDT Message left for pt or to call back. Please assist with setting up Cardio appt and complete Transition of Care/Pt Outreach encounter started for pt hospital follow up. Ruby Lee MA [facility]05-16-2025 NotePatient Outreach (FAMPWS) JOSÉ MIGUEL YOUNG SR. ([id number]) 1965 M Date Time Provider Department 03/23/25 RUBY LEE During your visit today, we recorded the following information about you: Braeden Valdes RN 03/26/2025 10:10 AM Signed TRANSITION CARE MANAGEMENT (TCM) INITIAL CONTACT Carpenter Assembler Outreach Provider Action/FYI: 10 day TCM Called pt to on 03/23/25, message left. See other TE as well. Pt referred to Cardiology for A-fib, pt requested to stay with [facility] as [facility] has not returned their multiple calls. Pt was advised to increase Lasix from 20 mg every other day to 40 mg 1 pill BID and started on Potassium chloride 20 mEq 1 pill BID. Spouse calls back reports diarrhea since before leaving hospital. Patient has tried Pepto Bismol chewables 2 last evening and a half a bottle of Pepto Bismol since the middle of the night until this morning with no relief. Asking if could be related to any medications newly prescribed. Per spouse, Patient started on Eliquis 5 mg twice daily, D/C Aspirin 325 mg daily, Start Baby ASA 81 mg daily, D/C atenolol with chlorthalidone, Start atenolol 100 mg daily, and D/C ibuprofen 800 mg. Spouse dropping off paperwork for FMLA and has also applied for Social Security Disability. Initial contact with patient post discharge, spoke to message left 03/23/25 to call office back. Patient identified by name and . TRANSITION CARE MANAGEMENT INITIAL OUTREACH DOCUMENTATION: 03/23/2025 Date of Outreach: Outreach Attempt 1: Contact Made Date of Discharge 03/22/2025 SUMMARY: -Pt discharged from [facility] on 03/22/25. -Admitted for: 1) Hypertensive Urgency 2) heart failure with preserved ejection fraction Below copied from [employer]: Chief Complaint: Shortness of Breath Informant: patient Onset/Context/Timing Onset: Days Context: Gradual Onset Timing: Continuous Worsened by: exertion Narrative Narrative: Patient presents for shortness of breath. Recent admission with an echocardiogram and he was told he had CHF. He takes Lasix every other day and has been compliant. He is also compliant with his anticoagulation which he started for atrial fibrillation. He is denying any chest pain, fever, GI symptoms. 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 Medical decision making narrative: Patient had an EKG that I interpreted. It showed atrial fibrillation with no evidence of ischemia or infarction pattern. He was placed on the monitor. He was found to be hypoxic in the upper 80s on room air and required 2 L nasal cannula. Everything sounded more like cardiac, heart failure. He did not have infectious symptoms and did not have chest pain. He is compliant with his Eliquis so PE was felt to be unlikely. Patient later required 3 L of nasal cannula. This is new for him. His workup looked pretty good. Troponin was normal. BNP is elevated but stable. Chest x-ray was reviewed by me and the radiologist. Showed pulmonary edema pattern. Patient was treated with a dose of Lasix here. He is taking Lasix every other day and I believe he needs more aggressive diuresis. However his creatinine is starting to elevate. It is 1.3 here today which was elevated from his baseline. I suspect this will continue to rise with further treatment. He is requiring oxygen and will need close monitoring. I contacted the hospitalist to admit for further care. Patient will be admitted for observation to PCU. Impression #1 CHF Impression #2 hypoxic respiratory failure Impression #3 elevated creatinine Minutes Spent on Discharge: 45 Hospital Course: Patient is a 59-year-old male with a past medical history as outlined was admitted to the ED on 03/18/2025 with a complaint of shortness of breath. His symptoms started about 1 to 2 days prior to admission and he had associated persistent shortness of breath. Symptoms were worsened by exertion with respiratory rate of 33 breaths/min. He was requiring 3 L of oxygen at time of admission. His initial blood pressure was also markedly elevated at 194/104. CT chest showed bilateral pleural effusions and ground glass opacities concerning for pulmoonary edema with mild cardiomegaly and stable, small perciardial effusion and finding suggestive of pulmonary edema. He was admitted to be managed for acute hypoxia due to hypertensive urgency and acute exacerbation of HFpEF. He was diuresed with IV Lasix.CT of the abdomen and pelvis showed cardiomegaly he had 2D echo which showed EF of 70% with stage I diastolic dysfunction. His hypertension improved and blood pressure control improved significantly. His shortness of breath improved and he was weaned down to room air. He was discharged home on 03/22/2025 with a prescription for p.o. Lasix 40 mg twice daily with potassium supplementation to prevent hyp (more content not included)...[facility]05-15-2025 Telephone encounter Note* Telephone Encounter - Pierce Wells MD - 03/22/2025 5:07 PM EDT Cardiology consult ordered Pierce Wells MD [facility]05-15-2025 Discharge summary Author Zoë Khan [facility] Note Date/Time March 22, 2025 4:41p [facility] Medical Records Department [address] [place] [address] Discharge Summary 03/22/25 1452 MR#: [id number] Acct: [id number] Name: JOSÉ MIGUEL YOUNG Sr. Rep #: [id number] : 1965 59 From: Zoë Khan MD PCP: Dr. Pierce Wells MD Status:AD M IN [id number] Providers Date of Admission: 03/19/25 Date of Discharge: 03/22/25 Primary Care Physician: Dr. Pierce Wells MD Reason For Visit: HYPERTENSIVE URGENCY WITH OHS AND CHRONIC HYPOXIA Diagnosis Discharge Diagnosis (1) Hypertensive urgency: Status: Acute Code(s): I16.0 - Hypertensive urgency (2) (HFpEF) heart failure with preserved ejection fraction: Status: Acute Code(s): I50.30 - Unspecified diastolic (congestive) heart failure Medications at Discharge Home Medications guanfacine 1 mg tablet 1 tablet PO QPM BLOOD PRESSURE 30 days ##30 05/09/18 minoxidil 10 mg tablet 20 mg PO DAILY HAIR GROWTH 09/26/19 finasteride 5 mg tablet 5 mg PO QPM 03/02/25 losartan 100 mg tablet 100 mg PO DAILY 03/02/25 nifedipine 30 mg tablet,extended release 24 hr 30 mg PO DAILY 03/02/25 omeprazole 20 mg capsule,delayed release 20 mg PO DAILY 03/02/25 tamsulosin 0.4 mg capsule 0.4 mg PO QHS 03/02/25 apixaban 5 mg tablet (Eliquis) 5 mg PO BID 30 days #60 tabs 03/05/25 aspirin 81 mg chewable tablet 81 mg PO DAILY@0800 30 days #30 tabs 03/05/25 atenolol 100 mg tablet 100 mg PO DAILY 30 days #30 tabs 03/05/25 escitalopram oxalate 10 mg tablet 10 mg PO DAILY 03/18/25 furosemide 40 mg tablet 40 mg PO BID #60 tabs 03/22/25 potassium chloride 20 mEq tablet,extended release 20 meq PO BID #60 tabs 03/22/25 Hospital Course Operations None Procedures 2-D Echocardiogram Summary of Care Provided Minutes Spent on Discharge: 45 Hospital Course: Patient is a 59-year-old male with a past medical history as outlined was admitted to the ED on 03/18/2025 with a complaint of shortness of breath. His symptoms started about 1 to 2 days prior to admission and he had associated persistent shortness of breath. Symptoms were worsened by exertion with respiratory rate of 33 breaths/min. He was requiring 3 L of oxygen at time of admission. His initial blood pressure was also markedly elevated at 194/104. CTchest showed bilateral pleural effusions and ground glass opacities concerning for pulmoonary edema with mild cardiomegaly and stable, small perciardial effusion and finding suggestive of pulmonary edema. He was admitted to be managed for acute hypoxia due to hypertensive urgency and acute exacerbation of HFpEF. He was diuresed with IV Lasix.CT of the abdomen and pelvis showed cardiomegaly he had 2D echo which showed EF of 70% with stage I diastolic dysfunction. His hypertension improved and blood pressure control improved significantly. His shortness of breath improved and he was weaned down to room air. He was discharged home on 03/22/2025 with a prescription for p.o. Lasix 40 mg twice daily with potassium supplementation to prevent hypokalemia. He also discharged on his home dose of atenolol and nifedipine. He is follow-up with his primary care doctor within 1 to 2 weeks. Patient seen and examined prior to discharge. He had no active complaints. Review of systems otherwise negative. Labs and vitals reviewed. Home medication reviewed and reconciled. Physical Exam Const alert, oriented x3 and no apparent distress Constitutional Narrative: class III obesity General Appearance: cooperative, comfortable and well kempt Orientation / Consciousness: awake Exam Limitations: no limitations HEENT normocephalic, head/scalp atraumatic, hearing grossly normal bilaterally, moist oral mucous membranes and oropharynx normal Mouth: oral and palatal mucosa normal Eyes PERRL, EOMs intact bilaterally and conjunctivae normal Neck no lymphadenopathy and supple Resp normal respiratory effort, no retractions, no use of accessory muscles and clearto auscultation bilaterally Cardio regular rate, regular rhythm, S1 normal heart sound, S2 normal heart sound and no murmurs GI normal to inspection, nondistended, normoactive bowel sounds, soft to palpation,non-tender and non-distended Extremity normal to inspection, full ROM and no clubbing, cyanosis or edema Skin no rashes or lesions noted Neuro oriented x3, CN's II-XII intact bilaterally, moves all extremities and no focal motor deficits Sensorium / Orientation: awake Motor Exam: strength 5/5 throughout Psych affect normal Weight / BMI Weight Weight: 328 lb 0.765 oz Body Mass Index (BMI) 51.3 ABG / Lab / Microbiology Data 03/19/25 05:03 03/22/25 05:50 Laboratory: Laboratory Results - last 24 hr 03/22/25 05:50: Sodium 137, Potassium 3.7, Chloride 96 L, Carbon Dioxide 30.9, Anion Gap 10, BUN 18, Creatinine 1.07, Estim Creat Clear Calc 104.28, Est GFR (MDRD) Non-Af 80, BUN/Creatinine Ratio 16.4, Glucose 138 H, Calcium 9.1 D/C Instructions Discharge Diet: Low fat / Low cholesterol Weight Bearing Status: Weight bearing as tolerated Call your doctor if you observe: Fever of 101 or Higher, Shortness of breath, Dizziness, Swelling in the ankles, Chest pain and Calf discomfort DC O2, CPAP, BIPAP Needs Home O2 Discharge instructions: No Meaningful Use Info Meaningful Use Meaningful Use Diagnoses (Choose all that apply): CHF CHF DEEJAY/ARB ordered at discharge?: Yes Documented LVEF (%): 70 Ischemic Stroke Statin Dosing Therapy Reference: STATIN DOSE THERAPY REFERENCE: * Patients > 75 years receive moderate or high dose statin therapy. * Patients 75 years or YOUNGER should receive HIGH intensity statin dose unless contraindicated. You will be required to document reason for non-treatment if statin daily dose does not meet guidelines. HIGH DOSE STATIN THERAPY DAILY Atorvastatin > than or = to 40 mg Rosuvastatin > than or = to 20 mg Amlodipine + Atorvastatin > than or = to 2.5/40 mg Ezetimibe + Simvastatin 10/80 mg Simvastatin 80mg Discharge Plan Admission Admit Date/Time: 03/19/25 14:17 Primary Reason for Your Visit: hypertension, HFpEF Attending Provider: Zoë Khan Primary Care Provider: Pierce Wells Consulting Providers: Thierno Campos; Malcom Madsen Instructions Patient Instructions: High Blood Pressure Risk Factors Discharge Orders/Prescriptions Prescriptions: New furosemide 40 mg tablet 40 mg PO BID Qty: 60 2RF potassium chloride 20 mEq tablet extended release 20 meq PO BID Qty: 60 2RF Continued guanfacine 1 mg tablet 1 tablet PO QPM 30 Days Qty: 30 Patient Comments: minoxidil 10 MG tablet 20 mg PO DAILY Patient Comments: TAKE 2 TABLETS BY MOUTH ONCE DAILY Rx Instructions: escitalopram oxalate 10 mg tablet 10 mg PO DAILY nifedipine 30 mg tablet extended release 24hr 30 mg PO DAILY tamsulosin 0.4 mg capsule 0.4 mg PO QHS omeprazole 20 mg capsule,delayed release(DR/EC) 20 mg PO DAILY losartan 100 mg tablet 100 mg PO DAILY finasteride 5 mg tablet 5 mg PO QPM atenolol 100 mg Tablet 100 mg PO DAILY 30 Days Qty: 30 2RF aspirin 81 mg Tablet,Chewable 81 mg PO DAILY@0800 30 Days Qty: 30 2RF Eliquis 5 mg Tablet 5 mg PO BID 30 Days Qty: 60 2RF Discontinued furosemide [Lasix] 20 mg tablet 20 mg PO .COMPLEX Rx Instructions: 20 mg orally every other day; Referrals / Follow Up: Pierce Wells MD [Primary Care Provider] - Within 1 Week Disposition Disposition (needs filled in before D/C Order can be placed): Home, Self Care Charges/Coding Visit Charges Inpatient E&M: 95018 Disch Hosp >30min 03/22/25 1641 <Electronically signed by Zoë Khan MD> Cosigner Signature (if applicable): CC: Dr. Pierce Wells MD; Dr. Zoë Khan MD~ Signed [facility] Work Phone: 1(313) 662-500305-15-2025 Discharge summary Author [facility] Note Date/Time March 22, 2025 2:51p m [facility] Medical Records Department [facility] [place] [address] Instructions for Home/Discharge Instructions 03/22/25 1450 MR#: [id number] Acct: [id number] Name: JOSÉ MIGUEL YOUNG . Rep #: [id number] : 1965 59 From: Zoë Khan MD PCP: Dr. Pierce Wells MD Status:AD M IN Discharge Instructions Diet Discharge Diet: Low fat / Low cholesterol DC O2, CPAP, BIPAP needs Home O2 Discharge instructions: No Dressing / Incision Discharge Activity: Return to Normal Activity Weight Bearing Status: Weight bearing as tolerated Dressing / Incision Call your doctor if you observe: Fever of 101 or Higher, Shortness of breath, Dizziness, Swelling in the ankles, Chest pain and Calf discomfort Follow Up Care Test Results: Test results from this visit will be discussed in further detail at your follow- up appointment, if applicable. Discharge Plan Admission Admit Date/Time: 03/19/25 14:17 Primary Reason for Your Visit: hypertension, HFpEF Attending Provider: Zoë Khan Primary Care Provider: Pierce Wells Consulting Providers: Thierno Campos; Malcom Madsen Instructions Patient Instructions: High Blood Pressure Risk Factors Discharge Orders/Prescriptions Prescriptions: New furosemide 40 mg tablet 40 mg PO BID Qty: 60 2RF potassium chloride 20 mEq tablet extended release 20 meq PO BID Qty: 60 2RF Continued guanfacine 1 mg tablet 1 tablet PO QPM 30 Days Qty: 30 Patient Comments: minoxidil 10 MG tablet 20 mg PO DAILY Patient Comments: TAKE 2 TABLETS BY MOUTH ONCE DAILY Rx Instructions: escitalopram oxalate 10 mg tablet 10 mg PO DAILY nifedipine 30 mg tablet extended release 24hr 30 mg PO DAILY tamsulosin 0.4 mg capsule 0.4 mg PO QHS omeprazole 20 mg capsule,delayed release(DR/EC) 20 mg PO DAILY losartan 100 mg tablet 100 mg PO DAILY finasteride 5 mg tablet 5 mg PO QPM atenolol 100 mg Tablet 100 mg PO DAILY 30 Days Qty: 30 2RF aspirin 81 mg Tablet,Chewable 81 mg PO DAILY@0800 30 Days Qty: 30 2RF Eliquis 5 mg Tablet 5 mg PO BID 30 Days Qty: 60 2RF Discontinued furosemide [Lasix] 20 mg tablet 20 mg PO .COMPLEX Rx Instructions: 20 mg orally every other day; Referrals / Follow Up: Pierce Wells MD [Primary Care Provider] - Within 1 Week Disposition Disposition (needs filled in before D/C Order can be placed): Home, Self Care 03/22/25 1451<Electronically signed by Zoë Khan MD>Zoë Khan MD CC: Dr. Thierno Campos DO; Dr. Malcom Madsen DO; Dr. Pierce Wells MD ~ Signed [facility] Work Phone: 1(466) 789-992305-15-2025 Telephone encounter Note* Telephone Encounter - Braeden Valdes RN - 03/22/2025 4:50 PM EDT Patient is currently at [facility] hospital to be discharging possibly today. Spouse calls to request a referral to [facility]. [facility] and she has contacted them three times with no returncall to schedule an appointment. Spouse requests call back at [phone] to schedule. Patient scheduled for Hospital Follow Up on 03/30/2025 from previous hospitalization. Please review and advise, Braeden Valdes RN [facility]05-15-2025 Discharge summary [facility] Medical Records Department [address] [place] [address] Discharge Summary 03/22/25 1452 MR#: [id number] Acct: [id number] Name: JOSÉ MIGUEL YOUNG . Rep #: [id number] : 1965 59 From: Zoë Khan MD PCP: Dr. Pierce Wells MD Status:[facility] Prov[facility] Date of Admission: 03/19/25 Date of Discharge: 03/22/25 Primary Care Physician: Dr. Pierce Wells MD Reason For Visit: HYPERTENSIVE URGENCY WITH OHS AND CHRONIC HYPOXIA Diagnosis Discharge Diagnosis (1) Hypertensive urgency: Status: Acute Code(s): I16.0 - Hypertensive urgency (2) (HFpEF) heart failure with preserved ejection fraction: Status: Acute Code(s): I50.30 - Unspecified diastolic (congestive) heart failure Medications at Discharge Home Medications guanfacine 1 mg tablet 1 tablet PO QPM BLOOD PRESSURE 30 days ##30 05/09/18 minoxidil 10 mg tablet 20 mg PO DAILY HAIR GROWTH 09/26/19 finasteride 5 mg tablet 5 mg PO QPM 03/02/25 losartan 100 mg tablet 100 mg PO DAILY 03/02/25 nifedipine 30 mg tablet,extended release 24 hr 30 mg PO DAILY 03/02/25 omeprazole 20 mg capsule,delayed release 20 mg PO DAILY 03/02/25 tamsulosin 0.4 mg capsule 0.4 mg PO QHS 03/02/25 apixaban 5 mg tablet (Eliquis) 5 mg PO BID 30 days #60 tabs 03/05/25 aspirin 81 mg chewable tablet 81 mg PO DAILY@0800 30 days #30 tabs 03/05/25 atenolol 100 mg tablet 100 mg PO DAILY 30 days #30 tabs 03/05/25 escitalopram oxalate 10 mg tablet 10 mg PO DAILY 03/18/25 furosemide 40 mg tablet 40 mg PO BID #60 tabs 03/22/25 potassium chloride 20 mEq tablet,extended release 20 meq PO BID #60 tabs 03/22/25 Hospital Course Operations None Procedures 2-D Echocardiogram Summary of Care Provided Minutes Spent on Discharge: 45 Hospital Course: Patient is a 59-year-old male with a past medical history as outlined was admitted to the ED on 03/18/2025 with a complaint of shortness of breath. His symptoms started about 1 to 2 days prior to admission and he had associated persistent shortness of breath. Symptoms were worsened by exertion with r espiratory rate of 33 breaths/min. He was requiring 3 L of oxygen at time of admission. His initialblood pressure was also markedly elevated at 194/104. CTchest showed bilateral pleural effusions and ground glass opacities concerning for pulmoonary edema with mild cardiomegaly and stable, small perciardial effusion and finding suggestive of pulmonary edema. He was admitted to be managed for acute hypoxia due to hypertensive urgency and acute exacerbation of HFpEF. He was diuresed with IV Lasix.CT of the abdomen and pelvis showed cardiomegaly he had 2D echo which showed EF of 70% with stage Idiastolic dysfunction. His hypertension improved and blood pressure control improved significantly.His shortness of breath improved and he was weaned down to room air. He was discharged home on 03/22/2025 with a prescription for p.o. Lasix 40 mg twice daily with potassium supplementation to preventhypokalemia. He also discharged on his home dose of atenolol and nifedipine. He is follow-up with his primary care doctor within 1 to 2 weeks. Patient seen and examined prior to discharge. He had no active complaints. Review of systems otherwise negative. Labs and vitals reviewed. Home medication reviewed and reconciled. Physical Exam Const alert, oriented x3 and no apparent distress Constitutional Narrative: class III obesity General Appearance: cooperative, comfortable and well kempt Orientation / Consciousness: awake Exam Limitations: no limitations HEENT normocephalic, head/scalp atraumatic, hearing grossly normal bilaterally, moist oral mucous membranes and oropharynx normal Mouth: oral and palatal mucosa normal Eyes PERRL, EOMs intact bilaterally and conjunctivae normal Neck no lymphadenopathy and supple Resp normal respiratory effort, no retractions, no use of accessory muscles and clearto auscultation bilaterally Cardio regular rate, regular rhythm, S1 normal heart sound, S2 normal heart sound and no murmurs GI normal to inspection, nondistended, normoactive bowel sounds, soft to palpation,non-tender and non-distended Extremity normal to inspection, full ROM and no clubbing, cyanosis or edema Skin no rashes or lesions noted Neuro oriented x3, CN's II-XII intact bilaterally, moves all extremities and no focal motor deficits Sensorium / Orientation: awake Motor Exam: strength 5/5 throughout Psych affect normal Weight / BMI Weight Weight: 328 lb 0.765 oz Body Mass Index (BMI) 51.3 ABG / Lab / Microbiology Data 03/19/25 05:03 03/22/25 05:50 Laboratory: Laboratory Results - last 24 hr 03/22/25 05:50: Sodium 137, Potassium 3.7, Chloride 96 L, Carbon Dioxide 30.9, Anion Gap 10, BUN 18, Creatinine 1.07, Estim Creat Clear Calc 104.28, Est GFR (MDRD) Non-Af 80, BUN/Creatinine Ratio 16.4, Glucose 138 H, Calcium 9.1 D/C Instructions Discharge Diet: Low fat / Low cholesterol Weight Bearing Status: Weight bearing as tolerated Call your doctor if you observe: Fever of 101 or Higher, Shortness of breath, Dizziness, Swelling in the ankles, Chest pain and Calf discomfort DC O2, CPAP, BIPAP Needs Home O2 Discharge instructions: No Meaningful Use Info Meaningful Use Meaningful Use Diagnoses (Choose all that apply): CHF CHF DEEJAY/ARB ordered at discharge?: Yes Documented LVEF (%): 70 Ischemic Stroke Statin Dosing Therapy Reference: STATIN DOSE THERAPY REFERENCE: * Patients > 75 years receive moderate or high dose statin therapy. * Patients 75 years or YOUNGER should receive HIGH intensity statin dose unless contraindicated. You will be required to document reason for non-treatment if statin daily dose does not meet guidelines. HIGH DOSE STATIN THERAPY DAILY Atorvastatin > than or = to 40 mg Rosuvastatin > than or = to 20 mg Amlodipine + Atorvastatin > than or = to 2.5/40 mg Ezetimibe + Simvastatin 10/80 mg Simvastatin 80mg Discharge Plan Admission Admit Date/Time: 03/19/25 14:17 Primary Reason for Your Visit: hypertension, HFpEF Attending Provider: Zoë Khan Primary Care Provider: Pierce Wells Consulting Providers: Thierno Campos; Malcom Madsen Instructions Patient Instructions: High Blood Pressure Risk Factors Discharge Orders/Prescriptions Prescriptions: New furosemide 40 mg tablet 40 mg PO BID Qty: 60 2RF potassium chloride 20 mEq tablet extended release 20 meq PO BID Qty: 60 2RF Continued guanfacine 1 mg tablet 1 tablet PO QPM 30 Days Qty: 30 Patient Comments: minoxidil 10 MG tablet 20 mg PO DAILY Patient Comments: TAKE 2 TABLETS BY MOUTH ONCE DAILY Rx Instructions: escitalopram oxalate 10 mg tablet 10 mg PO DAILY nifedipine 30 mg tablet extended release 24hr 30 mg PO DAILY tamsulosin 0.4 mg capsule 0.4 mg PO QHS omeprazole 20 mg capsule,delayed release(DR/EC) 20 mg PO DAILY losartan 100 mg tablet 100 mg PO DAILY finasteride 5 mg tablet 5 mg PO QPM atenolol 100 mg Tablet 100 mg PO DAILY 30 Days Qty: 30 2RF aspirin 81 mg Tablet,Chewable 81 mg PO DAILY@0800 30 Days Qty: 30 2RF Eliquis 5 mg Tablet 5 mg PO BID 30 Days Qty: 60 2RF Discontinued furosemide [Lasix] 20 mg tablet 20 mg PO .COMPLEX Rx Instructions: 20 mg orally every other day; Referrals / Follow Up: Pierce Wells MD [Primary Care Provider] - Within 1 Week Disposition Disposition (needs filled in before D/C Order can be placed): Home, Self Care Charges/Coding Visit Charges Inpatient E&M: 63762 Disch Hosp >30min 03/22/25 1641 Cosigner Signature (if applicable): CC: Dr. Pierce Wells MD; Dr. Zoë Khan MD~ Signed [facility]05-15-2025 [facility] Medical Records Department [address] [place] [address] Discharge Summary 03/22/25 1452 MR#: [id number] Acct: [id number] Name: JOSÉ MIGUEL YOUNG . Rep #: [id number] : 1965 59 From: Zoë Khan MD PCP: Dr. Pierce Wells MD Status:ADM IN Location: [address] Providers Date of Admission: 03/19/25 Date of Discharge: 03/22/25 Primary Care Physician: Dr. Pierce Wells MD Reason For Visit: HYPERTENSIVE URGENCY WITH OHS AND CHRONIC HYPOXIA Diagnosis Discharge Diagnosis (1) Hypertensive urgency: Status: Acute Code(s): I16.0 - Hypertensive urgency (2) (HFpEF) heart failure with preserved ejection fraction: Status: Acute Code(s): I50.30 - Unspecified diastolic (congestive) heart failure Medications at Discharge Home Medications guanfacine 1 mg tablet 1 tablet PO QPM BLOOD PRESSURE 30 days ##30 05/09/18 minoxidil 10 mg tablet 20 mg PO DAILY HAIR GROWTH 09/26/19 finasteride 5 mg tablet 5 mg PO QPM 03/02/25 losartan 100 mg tablet 100 mg PO DAILY 03/02/25 nifedipine 30 mg tablet,extended release 24 hr 30 mg PO DAILY 03/02/25 omeprazole 20 mg capsule,delayed release 20 mg PO DAILY 03/02/25 tamsulosin 0.4 mg capsule 0.4 mg PO QHS 03/02/25 apixaban 5 mg tablet (Eliquis) 5 mg PO BID 30 days #60 tabs 03/05/25 aspirin 81 mg chewable tablet 81 mg PO DAILY@0800 30 days #30 tabs 03/05/25 atenolol 100 mg tablet 100 mg PO DAILY 30 days #30 tabs 03/05/25 escitalopram oxalate 10 mg tablet 10 mg PO DAILY 03/18/25 furosemide 40 mg tablet 40 mg PO BID #60 tabs 03/22/25 potassium chloride 20 mEq tablet,extended release 20 meq PO BID #60 tabs 03/22/25 Hospital Course Operations None Procedures 2-D Echocardiogram Summary of Care Provided Minutes Spent on Discharge: 45 Hospital Course: Patient is a 59-year-old male with a past medical history as outlined was admitted to the ED on 03/18/2025 with a complaint of shortness of breath. His symptoms started about 1 to 2 days prior to admission and he had associated persistent shortness of breath. Symptoms were worsened by exertion with respiratory rate of 33 breaths/min. He was requiring 3 L of oxygen at time of admission. His initial blood pressure was also markedly elevated at 194/104. CT chest showed bilateral pleural effusions and ground glass opacities concerning for pulmoonary edema with mild cardiomegaly and stable, small perciardial effusion and finding suggestive of pulmonary edema. He was admitted to be managed for acute hypoxia due to hypertensive urgency and acute exacerbation of HFpEF. He was diuresed with IV Lasix.CT of the abdomen and pelvis showed cardiomegaly he had 2D echo which showed EF of 70% with stage I diastolic dysfunction. His hypertension improved and blood pressure control improved significantly. His shortness of breath improved and he was weaned down to room air. He was discharged home on 03/22/2025 with a prescription for p.o. Lasix 40 mg twice daily with potassium supplementation to prevent hypokalemia. He also discharged on his home dose of atenolol and nifedipine. He is follow-up with his primary care doctor within 1 to 2 weeks. Patient seen and examined prior to discharge. He had no active complaints. Review of systems otherwise negative. Labs and vitals reviewed. Home medication reviewed and reconciled. Physical Exam Const alert, oriented x3 and no apparent distress Constitutional Narrative: class III obesity General Appearance: cooperative, comfortable and well kempt Orientation / Consciousness: awake Exam Limitations: no limitations HEENT normocephalic, head/scalp atraumatic, hearing grossly normal bilaterally, moist oral mucous membranes and oropharynx normal Mouth: oral and palatal mucosa normal Eyes PERRL, EOMs intact bilaterally and conjunctivae normal Neck no lymphadenopathy and supple Resp normal respiratory effort, no retractions, no use of accessory muscles and clear to auscultation bilaterally Cardio regular rate, regular rhythm, S1 normal heart sound, S2 normal heart sound and no murmurs GI normal to inspection, nondistended, normoactive bowel sounds, soft to palpation, non-tender and non- distended Extremity normal to inspection, full ROM and no clubbing, cyanosis or edema Skin no rashes or lesions noted Neuro oriented x3, CN's II-XII intact bilaterally, moves all extremities and no focal motor deficits Sensorium / Orientation: awake Motor Exam: strength 5/5 throughout Psych affect normal Weight / BMI Weight Weight: 328 lb 0.765 oz Body Mass Index (BMI) 51.3 ABG / Lab / Microbiology Data 03/19/25 05:03 03/22/25 05:50 Laboratory: Laboratory Results - last 24 hr 03/22/25 05:50: Sodium 137, Potassium 3.7, Chloride 96 L, Carbon Dioxide 30.9, Anion Gap 10, BUN 18, Creatinine 1.07, Estim Creat Clear Calc 104. (more content not included)... [facility]05-15-2025 Discharge summary [facility] Medical Records Department [address] [place] [address] Instructions for Home/Discharge Instructions 03/22/25 1450 MR#: [id number] Acct: [id number] Name: JOSÉ MIGUEL YOUNG . Rep #: [id number] : 1965 59 From: Zoë Khan MD PCP: Dr. Pierce Wells MD Status:AD M IN Discharge Instructions Diet Discharge Diet: Low fat / Low cholesterol DC O2, CPAP, BIPAP needs Home O2 Discharge instructions: No Dressing / Incision Discharge Activity: Return to Normal Activity Weight Bearing Status: Weight bearing as tolerated Dressing / Incision Call your doctor if you observe: Fever of 101 or Higher, Shortness of breath, Dizziness, Swelling in the ankles, Chest pain and Calf discomfort Follow Up Care Test Results: Test results from this visit will be discussed in further detail at your follow- up appointment, if applicable. Discharge Plan Admission Admit Date/Time: 03/19/25 14:17 Primary Reason for Your Visit: hypertension, HFpEF Attending Provider: Zoë Khan Primary Care Provider: Pierce Wells Consulting Providers: Thierno Campos; Malcom Madsen Instructions Patient Instructions: High Blood Pressure Risk Factors Discharge Orders/Prescriptions Prescriptions: New furosemide 40 mg tablet 40 mg PO BID Qty: 60 2RF potassium chloride 20 mEq tablet extended release 20 meq PO BID Qty: 60 2RF Continued guanfacine 1 mg tablet 1 tablet PO QPM 30 Days Qty: 30 Patient Comments: minoxidil 10 MG tablet 20 mg PO DAILY Patient Comments: TAKE 2 TABLETS BY MOUTH ONCE DAILY Rx Instructions: escitalopram oxalate 10 mg tablet 10 mg PO DAILY nifedipine 30 mg tablet extended release 24hr 30 mg PO DAILY tamsulosin 0.4 mg capsule 0.4 mg PO QHS omeprazole 20 mg capsule,delayed release(DR/EC) 20 mg PO DAILY losartan 100 mg tablet 100 mg PO DAILY finasteride 5 mg tablet 5 mg PO QPM atenolol 100 mg Tablet 100 mg PO DAILY 30 Days Qty: 30 2RF aspirin 81 mg Tablet,Chewable 81 mg PO DAILY@0800 30 Days Qty: 30 2RF Eliquis 5 mg Tablet 5 mg PO BID 30 Days Qty: 60 2RF Discontinued furosemide [Lasix] 20 mg tablet 20 mg PO .COMPLEX Rx Instructions: 20 mg orally every other day; Referrals / Follow Up: Pierce Wells MD [Primary Care Provider] - Within 1 Week Disposition Disposition (needs filled in before D/C Order can be placed): Home, Self Care 03/22/25 1451Zoë Khan MD CC: Dr. Thierno Campos DO; Dr. Malcom Madsen DO; Dr. Pierce Wells MD ~ Signed [facility]05-14-2025 Progress note Author [facility] Note Date/Time March 21, 2025 3:23p m [facility] Medical Records Department [address] [place] [address] Progress Note - Hospitalist 03/21/25811 MR#: [id number] Acct: [id number] Name: JOSÉ MIGUEL YOUNG Sr. Rep #: [id number] : 1965 59 From: Malcom Madsen DO PCP: Dr. Pierce Wells MD Status:AD M IN Location: [place] [id number] Reason for Visit Reason for Visit: Diagnoses Morbid (severe) obesity due to excess calories (03/19/25) Morbid (severe) obesity with alveolar hypoventilation (03/19/25) Hypertensive urgency (03/19/25) Unspecified diastolic (congestive) heart failure (03/19/25) Acute on chronic diastolic (congestive) heart failure (03/19/25) Dyspnea, unspecified (03/19/25) Other abnormalities of breathing (03/19/25) Other specified abnormal findings of blood chemistry (03/19/25) Body mass index [BMI] 50.0-59.9, adult (03/19/25) Subjective Subjective Overall better. No oxygen needed with rest, but does require oxygen with activity. Objective Data Objective Data Vital Signs: Vital Signs Temp Pulse Resp BP Pulse Ox O2 Del Method O2 Flow Rate 36.1 C L 75 18 151/89 H 96 Nasal Cannula 2 03/21/25 07:45 03/21/25 07:45 03/21/25 07:45 03/21/25 07:45 03/21/25 07:45 03/21/25 07:45 03/21/25 07:45 Oxygen Flow Rate (L/min) 2 Oxygen Delivery Method Nasal Cannula Weight: 150.8 kg Body Mass Index (BMI) 52.0 Intake & Output: Intake and Output for Last 24 Hours 03/19/25 03/20/25 03/21/25 23:59 23:59 23:59 Intake Total 500 / 500 0 / 180 300 / 300 Output Total 825 / 825 1900 / 2875 1650 / 1650 Balance -325 / -325 -1900 / -2695 -1350 / -1350 Lab / Micro Data 03/19/25 05:03 03/21/25 06:23 Physical Exam Const alert and no apparent distress Constitutional Narrative: up in chair, on nasal cannula, no respiratory distress. no conversational dyspnea. Resp normal respiratory effort, no retractions, no use of accessory muscles and clear to auscultation bilaterally Cardio regular rate, regular rhythm, S1 normal heart sound and S2 normal heart sound GI normal to inspection, nondistended, normoactive bowel sounds, soft to palpation, non-tender and non-distended Extremity General Extremity: edema bilateral lower extremity Details: moderate Assessment & Plan Assessment/Plan (1) Hypertensive urgency: PLAN: Improved, may have been exacerbated by acute CHF Continue atenolol 100/d, losartan 100/d, minoxidil 20/d, nifedipine 30/d (2) (HFpEF) heart failure with preserved ejection fraction: PLAN: acute exacerbation personally reviewed CT images and has GGO. His pleural effusion look more pronounced than it did last month. Change furosemide to 40 IV BID. echo shows an EF 70% w stage I DD. Trivial to small pericardial effusion. Continue with IV furosemide Creatinine normalized. Plan for 1 more day of IV furosemide. Hopefully can discharge on 5/15 w/o oxygen. PLAN: Plan Chronic conditions: * obesity class III: complicates care and recovery * BPH: tamsulosin * Depression: continue SSRI * Afib: continue atenolol and apixaban VTE prophylaxis: not indicated as already anticoagulated. DW patient's at bedside. Charges/Coding Visit Charges Inpatient E&M: 37968 Subs Hosp L2 03/21/25 1523 <Electronically signed by Malcom Madsen DO> Cosigner Signature (if applicable): CC: ~ Signed [facility] Work Phone: 1(511) 441-395905-14-2025 Progress note [facility] Medical Records Department [address] [place] [address] Progress Note - Hospitalist 03/21/25 0812 MR#: [id number] Acct: [id number] Name: JOSÉ MIGUEL YOUNG Sr. Rep #: [id number] : 1965 59 From: Malcom Madsen DO PCP: Dr. Pierce Wells MD Status:AD M IN Location: [place] [address] Reason for Visit Reason for Visit: Diagnoses Morbid (severe) obesity due to excess calories (03/19/25) Morbid (severe) obesity with alveolar hypoventilation (03/19/25) Hypertensive urgency (03/19/25) Unspecified diastolic (congestive) heart failure (03/19/25) Acute on chronic diastolic (congestive) heart failure (03/19/25) Dyspnea, unspecified (03/19/25) Other abnormalities of breathing (03/19/25) Other specified abnormal findings of blood chemistry (03/19/25) Body mass index [BMI] 50.0-59.9, adult (03/19/25) Subjective Subjective Overall better. No oxygen needed with rest, but does require oxygen with activity. Objective Data Objective Data Vital Signs: Vital Signs Temp Pulse Resp BP Pulse Ox O2 Del Method O2 Flow Rate 36.1 C L 75 18 151/89 H 96 Nasal Cannula 2 03/21/25 07:45 03/21/25 07:45 03/21/25 07:45 03/21/25 07:45 03/21/25 07:45 03/21/25 07:45 03/21/25 07:45 Oxygen Flow Rate (L/min) 2 Oxygen Delivery Method Nasal Cannula Weight: 150.8 kg Body Mass Index (BMI) 52.0 Intake & Output: Intake and Output for Last 24 Hours 03/19/25 03/20/25 03/21/25 23:59 23:59 23:59 Intake Total 500 / 500 0 / 180 300 / 300 Output Total 825 / 825 1900 / 2875 1650 / 1650 Balance -325 / -325 -1900 / -2695 -1350 / -1350 Lab / Micro Data 03/19/25 05:03 03/21/25 06:23 Physical Exam Const alert and no apparent distress Constitutional Narrative: up in chair, on nasal cannula, no respiratory distress. no conversational dyspnea. Resp normal respiratory effort, no retractions, no use of accessory muscles and clear to auscultation bilaterally Cardio regular rate, regular rhythm, S1 normal heart sound and S2 normal heart sound GI normal to inspection, nondistended, normoactive bowel sounds, soft to palpation, non-tender and non-distended Extremity General Extremity: edema bilateral lower extremity Details: moderate Assessment & Plan Assessment/Plan (1) Hypertensive urgency: PLAN: Improved, may have been exacerbated by acute CHF Continue atenolol 100/d, losartan 100/d, minoxidil 20/d, nifedipine 30/d (2) (HFpEF) heart failure with preserved ejection fraction: PLAN: acute exacerbation personally reviewed CT images and has GGO. His pleural effusion look more pronounced than it did last month. Change furosemide to 40 IV BID. echo shows an EF 70% w stage I DD. Trivial to small pericardial effusion. Continue with IV furosemide Creatinine normalized. Plan for 1 more day of IV furosemide. Hopefully can discharge on 515 w/o oxygen. PLAN: Plan Chronic conditions: * obesity class III: complicates care and recovery * BPH: tamsulosin * Depression: continue SSRI * Afib: continue atenolol and apixaban VTE prophylaxis: not indicated as already anticoagulated. DW patient's at bedside. Charges/Coding Visit Charges Inpatient E&M: 28073 Subs Hosp L2 03/21/25 1523 Cosigner Signature (if applicable): CC: ~ Signed [facility]05-13-2025 Progress note Author Malcom Madsen [facility] Note Date/Time March 20, 2025 12:43 pm [facility] Medical Records Department [address] [place] [address] Progress Note - Hospitalist 03/20/25 0749 MR#: [id number] Acct: [id number] Name: JOSÉ MIGUEL YOUNG . Rep #: [id number] : 1965 59 From: Malcom Madsen DO PCP: Dr. Pierce Wells MD Status:AD M IN Location: [place] [address]- 1 Reason for Visit Reason for Visit: Diagnoses Morbid (severe) obesity due to excess calories (03/19/25) Morbid (severe) obesity with alveolar hypoventilation (03/19/25) Hypertensive urgency (03/19/25) Unspecified diastolic (congestive) heart failure (03/19/25) Acute on chronic diastolic (congestive) heart failure (03/19/25) Dyspnea, unspecified (03/19/25) Other abnormalities of breathing (03/19/25) Other specified abnormal findings of blood chemistry (03/19/25) Body mass index [BMI] 50.0-59.9, adult (03/19/25) Subjective Subjective Still with CHINO. Objective Data Objective Data Vital Signs: Vital Signs Temp Pulse Resp BP Pulse Ox O2 Del Method O2 Flow Rate 36.4 C L 78 17 142/93 H 94 Nasal Cannula 2 03/20/25 03:30 03/20/25 03:30 03/20/25 03:30 03/20/25 03:30 03/20/25 03:30 03/20/25 03:35 03/20/25 03:35 Oxygen Flow Rate (L/min) 2 Oxygen Delivery Method Nasal Cannula Weight: 156.1 kg Body Mass Index (BMI) 53.8 Intake & Output: Intake and Output for Last 24 Hours 03/18/25 03/19/25 03/20/25 23:59 23:59 23:59 Intake Total 200 / 200 500 / 500 0 / 0 Output Total 740 / 740 825 / 825 600 / 600 Balance -540 / -540 -325 / -325 -600 / -600 Lab / Micro Data 03/19/25 05:03 03/20/25 05:26 Labs: Laboratory Results - last 24 hr 03/19/25 21:30: Phosphorus 3.2 03/20/25 05:26: Sodium 138, Potassium 3.5, Chloride 98, Carbon Dioxide 26.1, Anion Gap 14, BUN 14, Creatinine 0.98, Estim Creat Clear Calc 117.25, Est GFR (MDRD) Non-Af 89, BUN/Creatinine Ratio 14.0, Glucose 118 H, Calcium 9.5 ABG Data ABG results: ABG 03/19/25 08:37 Specimen Type CANDICE Sample Site Not entered VBG pH 7.35 VBG pO2 105 H VBG HCO3 35 H VBG Total CO2 36 H VBG O2 Sat (Calc) 98 H VBG Base Excess 9 H POC Mix VBG pCO2 Pt Tmp 62.4 H O2 Delivery Device Not entered Physical Exam Const Constitutional Narrative: up in chair. on nasal cannula. no respiratory distress. no conversational dyspnea. HEENT head/scalp atraumatic and moist oral mucous membranes Resp normal respiratory effort, no retractions, no use of accessory muscles and clear to auscultation bilaterally Cardio regular rate, regular rhythm, S1 normal heart sound and S2 normal heart sound GI normal to inspection, nondistended, normoactive bowel sounds and soft to palpation Extremity General Extremity: edema bilateral lower extremity Details: mild Assessment & Plan Assessment/Plan (1) Hypertensive urgency: PLAN: Improved, may have been exacerbated by acute CHF Continue atenolol 100/d, losartan 100/d, minoxidil 20/d, nifedipine 30/d (2) (HFpEF) heart failure with preserved ejection fraction: PLAN: acute exacerbation personally reviewed CT images and has GGO. His pleural effusion look more pronounced than it did last month. Change furosemide to 40 IV BID. echo shows an EF 70% w stage I DD. Trivial to small pericardial effusion. Continue with IV furosemide Creatinine normalized. Plan for 1 more day of IV furosemide. Hopefully can discharge on 03/21 w/o oxygen. PLAN: Plan Chronic conditions: * obesity class III: complicates care and recovery * BPH: tamsulosin * Depression: continue SSRI * Afib: continue atenolol and apixaban VTE prophylaxis: not indicated as already anticoagulated. DW patient's at bedside. Charges/Coding Visit Charges Inpatient E&M: 77398 Subs Hosp L2 03/20/25 1243 <Electronically signed by Malcom Madsen DO> Cosigner Signature (if applicable): CC: ~ Signed [facility] Work Phone: 1(534) 373-971605-13-2025 Progress note [facility] Medical Records Department [address] [place] [address] Progress Note - Hospitalist 03/20/25 0749 MR#: [id number] Acct: [id number] Name: JOSÉ MIGUEL YOUNG Sr. Rep #: [id number] : 1965 59 From: Malcom Madsen DO PCP: Dr. Pierce Wells MD Status:AD M IN Location: [place] [address] 1 Reason for Visit Reason for Visit: Diagnoses Morbid (severe) obesity due to excess calories (03/19/25) Morbid (severe) obesity with alveolar hypoventilation (03/19/25) Hypertensive urgency (03/19/25) Unspecified diastolic (congestive) heart failure (03/19/25) Acute on chronic diastolic (congestive) heart failure (03/19/25) Dyspnea, unspecified (03/19/25) Other abnormalities of breathing (03/19/25) Other specified abnormal findings of blood chemistry (03/19/25) Body mass index [BMI] 50.0-59.9, adult (03/19/25) Subjective Subjective Still with CHINO. Objective Data Objective Data Vital Signs: Vital Signs Temp Pulse Resp BP Pulse Ox O2 Del Method O2 Flow Rate 36.4 C L 78 17 142/93 H 94 Nasal Cannula 2 03/20/25 03:30 03/20/25 03:30 03/20/25 03:30 03/20/25 03:30 03/20/25 03:30 03/20/25 03:35 03/20/25 03:35 Oxygen Flow Rate (L/min) 2 Oxygen Delivery Method Nasal Cannula Weight: 156.1 kg Body Mass Index (BMI) 53.8 Intake & Output: Intake and Output for Last 24 Hours 03/18/25 03/19/25 03/20/25 23:59 23:59 23:59 Intake Total 200 / 200 500 / 500 0 / 0 Output Total 740 / 740 825 / 825 600 / 600 Balance -540 / -540 -325 / -325 -600 / -600 Lab / Micro Data 03/19/25 05:03 03/20/25 05:26 Labs: Laboratory Results - last 24 hr 03/19/25 21:30: Phosphorus 3.2 03/20/25 05:26: Sodium 138, Potassium 3.5, Chloride 98, Carbon Dioxide 26.1, Anion Gap 14, BUN 14, Creatinine 0.98, Estim Creat Clear Calc 117.25, Est GFR (MDRD) Non-Af 89, BUN/Creatinine Ratio 14.0,Glucose 118 H, Calcium 9.5 ABG Data ABG results: ABG 03/19/25 08:37 Specimen Type CANDICE Sample Site Not entered VBG pH 7.35 VBG pO2 105 H VBG HCO3 35 H VBG Total CO2 36 H VBG O2 Sat (Calc) 98 H VBG Base Excess 9 H POC Mix VBG pCO2 Pt Tmp 62.4 H O2 Delivery Device Not entered Physical Exam Const Constitutional Narrative: up in chair. on nasal cannula. no respiratory distress. no conversational dyspnea. HEENT head/scalp atraumatic and moist oral mucous membranes Resp normal respiratory effort, no retractions, no use of accessory muscles and clear to auscultation bilaterally Cardio regular rate, regular rhythm, S1 normal heart sound and S2 normal heart sound GI normal to inspection, nondistended, normoactive bowel sounds and soft to palpation Extremity General Extremity: edema bilateral lower extremity Details: mild Assessment & Plan Assessment/Plan (1) Hypertensive urgency: PLAN: Improved, may have been exacerbated by acute CHF Continue atenolol 100/d, losartan 100/d, minoxidil 20/d, nifedipine 30/d (2) (HFpEF) heart failure with preserved ejection fraction: PLAN: acute exacerbation personally reviewed CT images and has GGO. His pleural effusion look more pronounced than it did last month. Change furosemide to 40 IV BID. echo shows an EF 70% w stage I DD. Trivial to small pericardial effusion. Continue with IV furosemide Creatinine normalized. Plan for 1 more day of IV furosemide. Hopefully can discharge on 5/14 w/o oxygen. PLAN: Plan Chronic conditions: * obesity class III: complicates care and recovery * BPH: tamsulosin * Depression: continue SSRI * Afib: continue atenolol and apixaban VTE prophylaxis: not indicated as already anticoagulated. DW patient's at bedside. Charges/Coding Visit Charges Inpatient E&M: 77481 Subs Hosp L2 03/20/25 1248 Cosigner Signature (if applicable): CC: ~ Signed [facility]05-12-2025 Progress note Author Malcom Madsen [facility] Note Date/Time March 19, 2025 12:47 pm [facility] Medical Records Department [address] [place] [address] Progress Note - Hospitalist 03/19/25 2949 MR#: [id number] Acct: [id number] Name: JOSÉ MIGUEL YOUNG Sr. Rep #: [id number] : 1965 59 From: Malcom Madsen DO PCP: Dr. Pierce Wells MD Status:AD M [place] Location: [place] [address] Reason for Visit Reason for Visit: Diagnoses Morbid (severe) obesity due to excess calories (03/18/25) Morbid (severe) obesity with alveolar hypoventilation (03/18/25) Hypertensive urgency (03/18/25) Acute on chronic diastolic (congestive) heart failure (03/18/25) Dyspnea, unspecified (03/18/25) Other abnormalities of breathing (03/18/25) Other specified abnormal findings of blood chemistry (03/18/25) Body mass index [BMI] 50.0-59.9, adult (03/18/25) Subjective Subjective Breathing better. Has been chronically having LE edema. Objective Data Objective Data Vital Signs: Vital Signs Temp Pulse Resp BP Pulse Ox O2 Del Method O2 Flow Rate 36.7 C 80 18 148/98 H 97 Nasal Cannula 4 03/19/25 06:15 03/19/25 06:15 03/19/25 06:15 03/19/25 06:15 03/19/25 06:15 03/19/25 06:19 03/19/25 06:19 Oxygen Flow Rate (L/min) 4 Oxygen Delivery Method Nasal Cannula Weight: 156.2 kg Body Mass Index (BMI) 53.9 Intake & Output: Intake and Output for Last 24 Hours 03/17/25 03/18/25 03/19/25 23:59 23:59 23:59 Intake Total 200 / 200 200 / 200 Output Total 740 / 740 325 / 325 Balance -540 / -540 -125 / -125 Lab / Micro Data 03/19/25 05:03 03/19/25 05:03 Labs: Laboratory Results - last 24 hr 03/18/25 19:36: WBC 6.4, RBC 4.59 L, Hgb 13.4, Hct 41.6, MCV 90.6, MCH 29.2, MCHC 32.2, RDW Std Deviation 46.6 H, RDW Coeff of Bre 14.2, Plt Count 246, MPV 10.7, Immature Gran % (Auto) 0.200, Neut % (Auto) 70.9 H, Lymph % (Auto) 20.9, Perry % (Auto) 6.1, Eos % (Auto) 1.3, Baso % (Auto) 0.6, Absolute Neuts (auto) 4.5, Absolute Lymphs (auto) 1.33, Nucleated RBC % 0, D-Dimer Quant (PE/DVT) 0.73 H*, Sodium 139, Potassium 4.3, Chloride 104, Carbon Dioxide 23.7, Anion Gap 11, BUN 13, Creatinine 1.33 H, Estim Creat Clear Calc 88.10, Est GFR (MDRD) Non-Af 62, BUN/Creatinine Ratio 9.6 L, Glucose 111 H, Calcium 9.5, Phosphorus 2.7, Magnesium 2.1, Total Bilirubin 1.63 H, AST 52 H, ALT 30, Alkaline Phosphatase 57, Troponin T High Sens 22, NT pro BNP II 1362 H, Total Protein 7.6, Albumin 4.2, Globulin 3.4, Albumin/Globulin Ratio 1.3 03/18/25 21:37: Troponin T Hi Sens 2 Hr 19 03/18/25 23:20: Urine Color Yellow, Urine Clarity Clear, Urine pH 7.0, Ur Specific [place] 1.005, Urine Protein 15 H, Urine Glucose (UA) Normal, Urine Ketones Negative, Urine Occult Blood Negative, Urine Nitrite Negative, Urine Bilirubin Negative, Urine Urobilinogen Normal, Ur Leukocyte Esterase Negative, Urine RBC 0 SEEN, Urine WBC 0 SEEN, Ur Squamous Epith Cells 0-5 SEEN, Urine Bacteria 1+, Urine Mucus 0 SEEN 03/18/25 23:52: Troponin T Hi Sens 4Hr 23 H 03/19/25 05:03: WBC 6.0, RBC 4.33 L, Hgb 12.3 L, Hct 38.3 L, MCV 88.5, MCH 28.4, MCHC 32.1, RDW Std Deviation 45.2 H, RDW Coeff of Bre 14.0, Plt Count 220, MPV 10.3, Immature Gran % (Auto) 0.300, Neut % (Auto) 70.8 H, Lymph % (Auto) 20.9, Perry % (Auto) 6.7, Eos % (Auto) 0.8, Baso % (Auto) 0.5, Absolute Neuts (auto) 4.2, Absolute Lymphs (auto) 1.25, Nucleated RBC % 0, Sodium 138, Potassium 3.7, Chloride 101, Carbon Dioxide 23.8, Anion Gap 13, BUN 15, Creatinine 1.14, Estim Creat Clear Calc 100.80, Est GFR (MDRD) Non-Af 74, BUN/Creatinine Ratio 13.5, Glucose 126 H, Calcium 9.4, Total Bilirubin 1.74 H, AST 43 H, ALT 26, Alkaline Phosphatase 54, NT pro BNP II 1747 H, Total Protein 7.4, Albumin 4.2, Globulin 3.1, Albumin/Globulin Ratio 1.4 ABG Data ABG results: ABG 03/18/25 21:43 Specimen Type CANDICE Sample Site Not entered VBG pH 7.44 H VBG pO2 33 VBG HCO3 32 H VBG Total CO2 33 VBG O2 Sat (Calc) 64 VBG Base Excess 7 H POC Mix VBG pCO2 Pt Tmp 47.1 O2 Delivery Device Not entered Radiography Diagnostic Testing: Radiology Impression Chest X-Ray 03/18/25 20:00 IMPRESSION: Findings suggestive of vascular congestion. Reading Location: [facility] Chest CTA 03/18/25 22:27 IMPRESSION: 1. Bilateral pleural effusions, mosaic attenuation, interlobular septal thickening and ground-glass opacities, concerning for pulmonary edema. 2. Mild cardiomegaly and stable small pericardial effusion. 3. Multiple prominent-mildly enlarged unchanged lymph nodes, which are likely reactive. 4. Findings suggestive of pulmonary hypertension. 5. Right adrenal myelolipoma. Reading Location: [facility] Chest X-Ray 03/19/25 05:50 IMPRESSION: No significant interval change in appearance of mild patchy perihilar lower zone predominant ill-defined opacity which may represent mild edema. Cardiac silhouette is again enlarged for technique. Reading Location: [id number] Physical Exam Const alert and no apparent distress HEENT head/scalp atraumatic and moist oral mucous membranes Resp normal respiratory effort, no retractions, no use of accessory muscles and clear to auscultation bilaterally Cardio regular rate, regular rhythm, S1 normal heart sound and S2 normal heart sound GI normal to inspection, nondistended, normoactive bowel sounds, soft to palpation and non-tender Extremity General Extremity: edema bilateral lower extremity Details: moderate Neuro Sensorium / Orientation: awake and alert Assessment & Plan Assessment/Plan (1) Hypertensive urgency: PLAN: Improved, may have been exacerbated by acute CHF Continue atenolol 100/d, losartan 100/d, minoxidil 20/d, nifedipine 30/d (2) (HFpEF) heart failure with preserved ejection fraction: PLAN: acute exacerbation personally reviewed CT images and has GGO. His pleural effusion look more pronounced than it did last month. Change furosemide to 40 IV BID. echo shows an EF 70% w stage I DD. Trivial to small pericardial effusion. Continue with IV furosemide Creatinine down slightly. PLAN: Plan Chronic conditions: * obesity class III: complicates care and recovery * BPH: tamsulosin * Depression: continue SSRI * Afib: continue atenolol and apixaban VTE prophylaxis: not indicated as already anticoagulated. Greater than 50 minutes of which greater than 50% of the time was counseling the patient and his spouse about CHF, dry weight, kidney disease Charges/Coding Visit Charges Inpatient E&M: 47447 Subs Hosp L3 03/19/25 1247 <Electronically signed by Malcom Madsen DO> Cosigner Signature (if applicable): CC: ~ Signed [facility] Work Phone: 1(666) 870-204505-12-2025 Progress note [facility] Medical Records Department [address] [place] [address] Progress Note - Hospitalist 03/19/25 7667 MR#: [id number] Acct: [id number] Name: JOSÉ MIGUEL YOUNG Sr. Rep #: [id number] : 1965 59 From: Malcom Madsen DO PCP: Dr. Pierce Wells MD Status:ELVIN ANDERS Location: [place] [address] Reason for Visit Reason for Visit: Diagnoses Morbid (severe) obesity due to excess calories (03/18/25) Morbid (severe) obesity with alveolar hypoventilation (03/18/25) Hypertensive urgency (03/18/25) Acute on chronic diastolic (congestive) heart failure (03/18/25) Dyspnea, unspecified (03/18/25) Other abnormalities of breathing (03/18/25) Other specified abnormal findings of blood chemistry (03/18/25) Body mass index [BMI] 50.0-59.9, adult (03/18/25) Subjective Subjective Breathing better. Has been chronically having LE edema. Objective Data Objective Data Vital Signs: Vital Signs Temp Pulse Resp BP Pulse Ox O2 Del Method O2 Flow Rate 36.7 C 80 18 148/98 H 97 Nasal Cannula 4 03/19/25 06:15 03/19/25 06:15 03/19/25 06:15 03/19/25 06:15 03/19/25 06:15 03/19/25 06:19 03/19/25 06:19 Oxygen Flow Rate (L/min) 4 Oxygen Delivery Method Nasal Cannula Weight: 156.2 kg Body Mass Index (BMI) 53.9 Intake & Output: Intake and Output for Last 24 Hours 03/17/25 03/18/25 03/19/25 23:59 23:59 23:59 Intake Total 200 / 200 200 / 200 Output Total 740 / 740 325 / 325 Balance -540 / -540 -125 / -125 Lab / Micro Data 03/19/25 05:03 03/19/25 05:03 Labs: Laboratory Results - last 24 hr 03/18/25 19:36: WBC 6.4, RBC 4.59 L, Hgb 13.4, Hct 41.6, MCV 90.6, MCH 29.2, MCHC 32.2, RDW Std Deviation 46.6 H, RDW Coeff of Bre 14.2, Plt Count 246, MPV 10.7, Immature Gran % (Auto) 0.200, Neut % (Auto) 70.9 H, Lymph % (Auto) 20.9, Perry % (Auto) 6.1, Eos % (Auto) 1.3, Baso % (Auto) 0.6, AbsoluteNeuts (auto) 4.5, Absolute Lymphs (auto) 1.33, Nucleated RBC % 0, D-Dimer Quant (PE/DVT) 0.73 H*, Sodium 139, Potassium 4.3, Chloride 104, Carbon Dioxide 23.7, Anion Gap 11, BUN 13, Creatinine 1.33 H, Estim Creat Clear Calc 88.10, Est GFR (MDRD) Non-Af 62, BUN/Creatinine Ratio 9.6 L, Glucose 111 H,Calcium 9.5, Phosphorus 2.7, Magnesium 2.1, Total Bilirubin 1.63 H, AST 52 H, ALT 30, Alkaline Phosphatase 57, Troponin T High Sens 22, NT pro BNP II 1362 H, Total Protein 7.6, Albumin 4.2, Globulin 3.4, Albumin/Globulin Ratio 1.3 03/18/25 21:37: Troponin T Hi Sens 2 Hr 19 03/18/25 23:20: Urine Color Yellow, Urine Clarity Clear, Urine pH 7.0, Ur Specific [place] 1.005, Urine Protein 15 H, Urine Glucose (UA) Normal, Urine Ketones Negative, Urine Occult Blood Negative, Urine Nitrite Negative, Urine Bilirubin Negative, Urine Urobilinogen Normal, Ur Leukocyte Esterase Negative, Urine RBC 0 SEEN, Urine WBC 0 SEEN, Ur Squamous Epith Cells 0-5 SEEN, Urine Bacteria 1+, Urine Mucus 0 SEEN 03/18/25 23:52: Troponin T Hi Sens 4Hr 23 H 03/19/25 05:03: WBC 6.0, RBC 4.33 L, Hgb 12.3 L, Hct 38.3 L, MCV 88.5, MCH 28.4, MCHC 32.1, RDW StdDeviation 45.2 H, RDW Coeff of Bre 14.0, Plt Count 220, MPV 10.3, Immature Gran % (Auto) 0.300, Neut % (Auto) 70.8 H, Lymph % (Auto) 20.9, Perry % (Auto) 6.7, Eos % (Auto) 0.8, Baso % (Auto) 0.5, Absolute Neuts (auto) 4.2, Absolute Lymphs (auto) 1.25, Nucleated RBC % 0, Sodium 138, Potassium 3.7, Chloride 101, Carbon Dioxide 23.8, Anion Gap 13, BUN 15, Creatinine 1.14, Estim Creat Clear Calc 100.80, Est GFR (MDRD) Non-Af 74, BUN/Creatinine Ratio 13.5, Glucose 126 H, Calcium 9.4, Total Bilirubin 1.74 H, AST 43 H, ALT 26, Alkaline Phosphatase 54, NT pro BNP II 1747 H, Total Protein 7.4, Albumin 4.2, Globulin 3.1, Albumin/Globulin Ratio 1.4 ABG Data ABG results: ABG 03/18/25 21:43 Specimen Type CANDICE Sample Site Not entered VBG pH 7.44 H VBG pO2 33 VBG HCO3 32 H VBG Total CO2 33 VBG O2 Sat (Calc) 64 VBG Base Excess 7 H POC Mix VBG pCO2 Pt Tmp 47.1 O2 Delivery Device Not entered Radiography Diagnostic Testing: Radiology Impression Chest X-Ray 03/18/25 20:00 IMPRESSION: Findings suggestive of vascular congestion. Reading Location: [facility] Chest CTA 03/18/25 22:27 IMPRESSION: 1. Bilateral pleural effusions, mosaic attenuation, interlobular septal thickening and ground-glassopacities, concerning for pulmonary edema. 2. Mild cardiomegaly and stable small pericardial effusion. 3. Multiple prominent-mildly enlarged unchanged lymph nodes, which are likely reactive. 4. Findings suggestive of pulmonary hypertension. 5. Right adrenal myelolipoma. Reading Location: [facility] Chest X-Ray 03/19/25 05:50 IMPRESSION: No significant interval change in appearance of mild patchy perihilar lower zone predominant ill-defined opacity which may represent mild edema. Cardiac silhouette is again enlarged for technique. Reading Location: [facility] Physical Exam Const alert and no apparent distress HEENT head/scalp atraumatic and moist oral mucous membranes Resp normal respiratory effort, no retractions, no use of accessory muscles and clear to auscultation bilaterally Cardio regular rate, regular rhythm, S1 normal heart sound and S2 normal heart sound GI normal to inspection, nondistended, normoactive bowel sounds, soft to palpation and non-tender Extremity General Extremity: edema bilateral lower extremity Details: moderate Neuro Sensorium / Orientation: awake and alert Assessment & Plan Assessment/Plan (1) Hypertensive urgency: PLAN: Improved, may have been exacerbated by acute CHF Continue atenolol 100/d, losartan 100/d, minoxidil 20/d, nifedipine 30/d (2) (HFpEF) heart failure with preserved ejection fraction: PLAN: acute exacerbation personally reviewed CT images and has GGO. His pleural effusion look more pronounced than it did last month. Change furosemide to 40 IV BID. echo shows an EF 70% w stage I DD. Trivial to small pericardial effusion. Continue with IV furosemide Creatinine down slightly. PLAN: Plan Chronic conditions: * obesity class III: complicates care and recovery * BPH: tamsulosin * Depression: continue SSRI * Afib: continue atenolol and apixaban VTE prophylaxis: not indicated as already anticoagulated. Greater than 50 minutes of which greater than 50% of the time was counseling the patient and his spouse about CHF, dry weight, kidney disease Charges/Coding Visit Charges Inpatient E&M: 43439 Subs Hosp L3 03/19/25 1247 Cosigner Signature (if applicable): CC: ~ Signed [facility]05-12-2025 History and physical note Author Thierno Estrada [facility] Note Date/Time March 19, 2025 6:15a m [facility] Medical Records Department [address] [place] [address] H&P Exam - Hospitalist 03/18/252106 MR#: [id number] Acct: [id number] Name: JOSÉ MIGUEL YOUNG Sr. Rep #: [id number] : 1965 59 From: Thierno Thompson DO PCP: Dr. Pierce Wells MD Status:AD M [facility] Location: [place] [id number] - General General Date of Admission: 03/18/25 Date of Service: 03/18/25 Chief Complaint: SOB. HPI Narrative JOSÉ MIGUEL YOUNG, is a 59 M with a past medical history of essential hypertension; on atenolol-hydrochlorothiazide, nifedipine. 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; on minoxidil, GERD; on omeprazole, OA; with shoulder painand recent admission here from March 02, 2025 to March 05, 2025 with CTA of the chest with IV contrast that revealed no evidence of pulmonary embolism but did show Cardiomegaly with Small Pericardial Effusion with a corresponding elevated NT pro-BNP II of 1,559 pg/mL present on admission consistent with suspected new-onset AE of CHF of uncertain type complicated by clinical evidence of Acute Respiratory Insufficiency in addition to laboratory evidence of Hyperglycemia of163 mg/dL present on admission suspicious for DM-2 who now re-presents to [facility] ER complaining of SOB. Mr. Young reports his symptoms began approximately 1-2 days prior to admission with persistent shortness of breath. He states his symptoms are made worse with exertion with a respiratory rate of 33 breaths/min noted on admissionpatient requiring 3 LNC. His initial blood pressure was 194/104 mmHg present onadmission consistent with Hypertensive Urgency with an NT pro-BNP of 1,362 pg/mLpresent on admission with CT scan of the chest revealing bilateral pleural effusions, mosaic attenuation, interlobular septal thickening and ground-glass opacities concerning for pulmonary edema with mild cardiomegaly and stable smallpericardial effusion and findings suggestive of pulmonary hypertension in the setting of chronic obesity hypoventilation syndrome with the patient hypoxic at baseline and he was then admitted to the PCU under observation status for ongoing care for stay that is expected to be less than 2 midnights REPLACED BY [facility] Medical History (Updated 03/19/25 @ 02:[address] Thierno Campos, DO) Obesity hypoventilation syndrome Lymphedema Morbid obesity Shoulder pain HTN (hypertension) Home Medications ?Medication ?Instructions ?Recorded ?Last Taken ?Type guanfacine 1 mg tablet 1 tablet PO QPM BLOOD PRESSU RE 30 05/09/18 03/01/25 History days ##30 minoxidil 10 mg tablet 20 mg PO DAILY HAIR GROWTH 1 11/26/18 03/02/25 History finasteride 5 mg tablet 5 mg PO QPM 03/02/25 5 History losartan 100 mg tablet 100 mg PO DAILY 03/02/25 History nifedipine 30 mg tablet,extended 30 mg PO DAILY 03/02/25 History release 24 hr omeprazole 20 mg capsule,delayed 20 mg PO DAILY 03/02/25 History release tamsulosin 0.4 mg capsule 0.4 mg PO QHS 03/02/2503/01 History apixaban 5 mg tablet (Eliquis) 5 mg PO BID 30 days #60 tabs 03/05/25 Unknown Rx aspirin 81 mg chewable tablet 81 mg PO DAILY@0800 30 d ays #30 03/05/25 Unknown Rx tabs atenolol 100 mg tablet 100 mg PO DAILY 30 days #30 tabs 03/05/25 Unknown Rx escitalopram oxalate 10 mg tablet 10 mg PO DAILY 03/18 Unknown History furosemide 20 mg tablet (Lasix) 20 mg PO .COMPLEX nirav a 03/18/25 Unknown History Allergy/AdvReac Type Severity Reaction Status Date / Time No Known Allergies Allergy Verified 03/02/25 19:10 Social History Smoking Status: Never smoker alcohol intake: never ROS ROS Narrative Review of Systems: Constitutional: Patient denies fever or chills. Eyes: Patient denies changes in vision or discharge from eyes. ENT: Patient denies runny nose, sore throat or ear pain. Resp: Patient admits to shortness of breath that is persistent. CV: Patient denies chest pain, palpitations or heart racing. GI: Patient denies abdominal pain, nausea, vomiting, diarrhea or constipation. : Patient denies dysuria or hematuria. MSK: Patient admits to generalized weakness due to shortness of breath. Skin: Patient denies rash, abscess, wounds or jaundice. Psych: Patient denies symptoms of uncontrolled depression or anxiety. Neuro: Patient denies headache, paresthesias or focal neurologic deficits. Allergy: Patient denies lip swelling, tongue swelling or urticaria. Hematology: Patient denies easy bleeding or easy bruisability. Endocrinology: Patient denies polyuria, polydipsia, polyphagia or heat/cold intolerance. 14 point ROS otherwise negative except for positives noted above in HPI. Vital Signs Vital Signs Vital Signs: 03/18/25 19:19 03/18/25 19:21 03/18/25 19:22 Temperature 98.2 F 98.2 F Temperature Source Oral Oral Pulse Rate 81 81 Respiratory Rate 28 H 28 H Respiratory Effort Respiratory Depth Respiratory Pattern Blood Pressure 194/104 H 194/104 H Blood Pressure Mean 134 134 Pulse Ox 87 87 95 Oxygen Delivery Method Room Air Room Air Nasal Cannula Oxygen Flow Rate (L/min) 2 03/18/25 19:30 03/18/25 19:30 03/18/25 19:31 Temperature Temperature Source Pulse Rate 87 Respiratory Rate 24 H 23 H Respiratory Effort Short of Breath Labored Respiratory Depth Respiratory Pattern Tachypnea Blood Pressure 161/96 H Blood Pressure Mean 117 Pulse Ox 87 94 Oxygen Delivery Method Nasal Cannula Nasal Cannula Oxygen Flow Rate (L/min) 2 2 03/18/25 19:45 03/18/25 19:48 03/18/25 20:11 Temperature Temperature Source Pulse Rate 84 Respiratory Rate 19 H Respiratory Effort Short of Breath Labored Respiratory Depth Deep Respiratory Pattern Tachypnea Blood Pressure Blood Pressure Mean Pulse Ox 90 Oxygen Delivery Method Nasal Cannula Nasal Cannula Oxygen Flow Rate (L/min) 2 3 03/18/25 20:11 03/18/25 20:21 03/18/25 21:00 Temperature 98.3 F 98.8 F Temperature Source Oral Oral Pulse Rate 87 93 Respiratory Rate 24 H 33 H Respiratory Effort Respiratory Depth Respiratory Pattern Blood Pressure 161/89 H 170/105 H Blood Pressure Mean 113 126 Pulse Ox 93 94 95 Oxygen Delivery Method Nasal Cannula Nasal Cannula Nasal Cannula Oxygen Flow Rate (L/min) 3 3 3 Weight Weight: 355 lb 7 oz Body Mass Index (BMI) 55.6 Physical Exam Const alert, oriented x3 and no apparent distress Constitutional Narrative: Patient is morbidly obese and chronically hypoxic. General Appearance: cooperative HEENT normocephalic, head/scalp atraumatic, hearing grossly normal bilaterally and moist oral mucous membranes Eyes PERRL, EOMs intact bilaterally and conjunctivae normal Neck no lymphadenopathy, supple and no JVD Resp Resp Narrative: Diminished breath sounds throughout. Cardio regular rate and regular rhythm GI normal to inspection, nondistended, normoactive bowel sounds, soft to palpation,non-tender and non-distended GI Narrative: Morbidly obese. Extremity Extremity Narrative: Patient has chronic lower extremity venous stasis. Skin Skin Narrative: Patient is no evidence of rash, abscess, wounds or jaundice. Neuro oriented x3, CN's II-XII intact bilaterally, moves all extremities and no focal motor deficits Sensorium / Orientation: awake, alert, oriented to person, oriented to place andoriented to time Speech: speech normal Psych affect normal Results Medical Records Data Attestation: I reviewed the patient's medical records Lab / Micro Data Attestation: I reviewed the patient's lab results. 03/19/25 05:03 03/18/25 19:36 Labs: Laboratory Results - last 24 hr 03/18/25 19:36: WBC 6.4, RBC 4.59 L, Hgb 13.4, Hct 41.6, MCV 90.6, MCH 29.2, MCHC 32.2, RDW Std Deviation 46.6 H, RDW Coeff of Bre 14.2, Plt Count 246, MPV 10.7, Immature Gran % (Auto) 0.200, Neut % (Auto) 70.9 H, Lymph % (Auto) 20.9, Perry % (Auto) 6.1, Eos % (Auto) 1.3, Baso % (Auto) 0.6, Absolute Neuts (auto) 4.5, Absolute Lymphs (auto) 1.33, Nucleated RBC % 0, Sodium 139, Potassium 4.3, Chloride 104, Carbon Dioxide 23.7, Anion Gap 11, BUN 13, Creatinine 1.33 H, Estim Creat Clear Calc 88.10, Est GFR (MDRD) Non-Af 62, BUN/Creatinine Ratio 9.6L, Glucose 111 H, Calcium 9.5, Total Bilirubin 1.63 H, AST 52 H, ALT 30, Alkaline Phosphatase 57, Troponin T High Sens 22, NT pro BNP II 1362 H, Total Protein 7.6, Albumin 4.2, Globulin 3.4, Albumin/Globulin Ratio 1.3 Imaging Radiology Impression Chest X-Ray 03/18/25 20:00 IMPRESSION: Findings suggestive of vascular congestion. Reading Location: [facility] Imaging Services [address] [place] [address] CTA Chest W/WO Contrast MR#: [id number] Acct: [id number] Name: JOSÉ MIGUEL YOUNG Sr. Rep #: [id number] : 1965 M 59 From: Uriel Prabhakar MD PCP: Dr. Pierce Wells MD Status: ADM CHAGO Study: CTA Chest W/WO Contrast Date of Exam: 03/18/25 Exam# [id number] Ordering Dr: Thierno Campos DO PROCEDURE: CTA CHEST W/WO CONTRAST 03/18/2025 REASON FOR EXAM: SOB WITH ELEVATED D-DIMER. EVAL FOR PE. TECHNIQUE: CTA axial imaging of the chest with intravenous contrast. Multiplanar and multisequence images were obtained. PATIENT PREPARATION: Per protocol CONTRAST: Omnipaque 350 VOLUME: 100 mL Not Provided Gauge IV One or more dose reduction techniques were used (e.g., Automated exposure control, adjustment of the mA and/or kV according to patient size, use of iterative reconstruction technique). COMPARISON: CT chest 02/26/2020 FINDINGS: Hardware: None Lymph nodes: Multiple prominent-mildly enlarged lymph nodes. For example 15 mm left para-aortic node (series 2 image 169); 20 mm right hilar node (image 147) and 12 mm left hilar node (image 145). Heart: Mild cardiomegaly. Stable small pericardial effusion. Mild coronary artery calcifications. Thoracic Aorta: No thoracic aortic aneurysm or dissection. Pulmonary Vessels: Main pulmonary artery is enlarged, and measures 3.8 cm, likely secondary to pulmonary arterial hypertension. No evidence of acute pulmonary emboli through the major subsegmental branches. Most Proximal Level of Embolus (if embolus present): Absent Lungs and Airways: Central airways are patent without endobronchial lesions. Diffuse mosaic attenuation, throughout both mathew thoraces. Mild interlobular septal thickening. Increased small right and traceleft pleural effusions with atelectasis. Additional scattered bilateral ground-glass opacities. Constellation of findings, concerning for pulmonary edema. No pneumothorax. Upper Abdomen: Right adrenal fat attenuation mass which measures 5.7 x 5.9 cm, compatible with an adrenal myelolipoma. Bones: Degenerative changes of the thoracic spine. CT/CTA Chest W/WO Contrast IMPRESSION: 1. Bilateral pleural effusions, mosaic attenuation, interlobular septal thickening and ground-glass opacities, concerning for pulmonary edema. 2. Mild cardiomegaly and stable small pericardial effusion. 3. Multiple prominent-mildly enlarged unchanged lymph nodes, which are likely reactive. 4. Findings suggestive of pulmonary hypertension. 5. Right adrenal myelolipoma. Reading [facility] CC: Dr. Thierno Campos DO; Dr. Pierce Wells MD ~ Prn Physical Therapist: Signed Assessment & Plan Assessment/Plan (1) Hypertensive urgency: (2) Diastolic CHF, acute on chronic: (3) Respiratory insufficiency: (4) Morbid obesity with BMI of 50.0-59.9, adult: (5) Obesity hypoventilation syndrome: (6) D-dimer, elevated: PLAN: Plan 1. Hypertensive Urgency; evidenced by blood pressure of 194/104 mmHg present on admission - Admit to PCU under observation status. Give hydralazine IV prn for systolic blood pressure > 160 mmHg. Patient was treated with Lasix by the ER physician with elevated creatinine of 1.33 mg/dL present on admission (up from his baseline of 1 mg/dL last admission a few days ago on 03/05/2025). Therefore,he was treated with IV albumin to prevent worsening of his renal function as he can likely not be diuresed further without inducing kidney failure. 2. AE of chronic diastolic CHF; with LVEF ~70% with stage I diastolic dysfunction and elevated Noted with NT pro-BNP II of 1,362 pg/mL present on admission complicating #1 - Patient treated with IV furosemide in the ER with additional treatment with IV albumin to prevent worsening renal function. Recheck CXR and NT pro-BNP in the AM to follow trend. 3. [id number]; with BMI of 55.7 this admission with Obesity Hypoventilation Syndrome causing Acute Respiratory Insufficiency compounding #1 & #2 - Weight loss was recommended. This complicates his case and may hamper recovery. 4. Mildly elevated D-dimer of 0.73 present on admission with the patient already on NOAC adding to the medical complexity of #1 - #3 - Checked CT of chest with IV contrast to evaluate for possible PE with CT revealing no evidenceof pulmonary embolism with bilateral pleural effusions, mosaic attenuation, interlobular septal thickening ground-glassy facies concerning for pulmonary edema with mild cardiomegaly and stable small pericardial effusion findings suggestive of pulmonary hypertension. 5. Recently diagnosed Atrial Fibrillation; on apixaban amplifying the pathologyof #1 - #4 - Resume apixaban as before. 6. Essential hypertension; on atenolol-hydrochlorothiazide, nifedipine, losartan and guanfacine - Maintain home regimen plus give IV hydralazine as needed as outlined in #1. 7. Recent admission here from March 02, 2025 to March 05, 2025 with CTA of the chest with IV contrast that revealed no evidence of pulmonary embolism but did show Cardiomegaly with Small Pericardial Effusion with a corresponding elevated NT pro-BNP II of 1,559 pg/mL present on admission consistent with suspected new-onset AE of CHF of uncertain type complicated by clinical evidence of Acute Respiratory Insufficiency in addition to laboratory evidence of Hyperglycemia of163 mg/dL present on admission suspicious for DM-2 - Noted. 8. Chronic lower extremity lymphedema - Stable. 9. History of muscle spasms; on orphenadrine - Current management to continue. 10. Depression with anxiety; on escitalopram and clonazepam - Maintain current therapy. 11. BPH; on finasteride and tamsulosin - Stable. 12. 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 13. GERD; on omeprazole - Resume PPI. 14. OA; with shoulder pain - Give acetaminophen prn for pain or fever. 15. DVT prophylaxis - Patient apixaban for #5. Total time: Approximately (but not less than) 70 minutes. Charges/Coding Visit Charges OBSV E&M: 29134 Observ/hosp same date L2 03/19/25 0615 <Electronically signed by Thierno Campos DO> Cosigner Signature (if applicable): CC: Dr. Thierno Campos DO; Dr. Pierce Wells MD~ Signed [facility] Work Phone: [phone] 539-632505-12-2025 History and physical note [facility] Medical Records Department [address] [place] [address] H&P Exam - Hospitalist 03/18/252106 MR#: [id number] Acct: [id number] Name: JOSÉ MIGUEL YOUNG Sr. Rep #: [id number] : 1965 59 From: Thierno Thompson DO PCP: Dr. Pierce Wells MD Status:AD M CHAGO Location: [place] [id number] - General General Date of Admission: 03/18/25 Date of Service: 03/18/25 Chief Complaint: SOB. HPI Narrative JOSÉ MIGUEL YOUNG, is a 59 M with a past medical history of essential hypertension; on atenolol-hydrochlorothiazide, nifedipine. 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; on minoxidil, GERD; on omeprazole, OA; with shoulder painand recent admission here from March 02, 2025 to March 05, 2025 with CTA of the chest with IVcontrast that revealed no evidence of pulmonary embolism but did show Cardiomegaly with Small Pericardial Effusion with a corresponding elevated NT pro-BNP II of 1,559 pg/mL present on admission consistent with suspected new-onset AE of CHF of uncertain type complicated by clinical evidence of Acute Respiratory Insufficiency in addition to laboratory evidence of Hyperglycemia of163 mg/dL present on admission suspicious for DM-2 who now re- presents to [facility] ER complaining ofSOB. Mr. Young reports his symptoms began approximately 1-2 days prior to admission with persistentshortness of breath. He states his symptoms are made worse with exertion with a respiratory rate of33 breaths/min noted on admissionpatient requiring 3 LNC. His initial blood pressure was 194/104 mmHg present onadmission consistent with Hypertensive Urgency with an NT pro-BNP of 1,362 pg/mLpresenton admission with CT scan of the chest revealing bilateral pleural effusions, mosaic attenuation, interlobular septal thickening and ground-glass opacities concerning for pulmonary edema with mild cardiomegaly and stable smallpericardial effusion and findings suggestive of pulmonary hypertension inthe setting of chronic obesity hypoventilation syndrome with the patient hypoxic at baseline and hewas then admitted to the PCU under observation status for ongoing care for stay that is expected syd[place] less than 2 midnights REPLACED BY [facility] Medical History (Updated 03/19/25 @ 02:[address] Thierno Campos, DO) Obesity hypoventilation syndrome Lymphedema Morbid obesity Shoulder pain HTN (hypertension) Home Medications ?Medication ?Instructions ?Recorded ?Last Taken ?Type guanfacine 1 mg tablet 1 tablet PO QPM BLOOD PRESSU RE 30 05/09/18 03/01/25 History days ##30 minoxidil 10 mg tablet 20 mg PO DAILY HAIR GROWTH 1 11/26/18 03/02/25 History finasteride 5 mg tablet 5 mg PO QPM 03/02/25 5 History losartan 100 mg tablet 100 mg PO DAILY 03/02/25 History nifedipine 30 mg tablet,extended 30 mg PO DAILY 03/02/25 History release 24 hr omeprazole 20 mg capsule,delayed 20 mg PO DAILY 03/02/25 History release tamsulosin 0.4 mg capsule 0.4 mg PO QHS 03/02/2503/01 History apixaban 5 mg tablet (Eliquis) 5 mg PO BID 30 days #60 tabs 03/05/25 Unknown Rx aspirin 81 mg chewable tablet 81 mg PO DAILY@0800 30 d ays #30 03/05/25 Unknown Rx tabs atenolol 100 mg tablet 100 mg PO DAILY 30 days #30 tabs 03/05/25 Unknown Rx escitalopram oxalate 10 mg tablet 10 mg PO DAILY 03/18 Unknown History furosemide 20 mg tablet (Lasix) 20 mg PO .COMPLEX nirav a 03/18/25 Unknown History Allergy/AdvReac Type Severity Reaction Status Date / Time No Known Allergies Allergy Verified 03/02/25 19:10 Social History Smoking Status: Never smoker alcohol intake: never ROS ROS Narrative Review of Systems: Constitutional: Patient denies fever or chills. Eyes: Patient denies changes in vision or discharge from eyes. ENT: Patient denies runny nose, sore throat or ear pain. Resp: Patient admits to shortness of breath that is persistent. CV: Patient denies chest pain, palpitations or heart racing. GI: Patient denies abdominal pain, nausea, vomiting, diarrhea or constipation. : Patient denies dysuria or hematuria. MSK: Patient admits to generalized weakness due to shortness of breath. Skin: Patient denies rash, abscess, wounds or jaundice. Psych: Patient denies symptoms of uncontrolled depression or anxiety. Neuro: Patient denies headache, paresthesias or focal neurologic deficits. Allergy: Patient denies lip swelling, tongue swelling or urticaria. Hematology: Patient denies easy bleeding or easy bruisability. Endocrinology: Patient denies polyuria, polydipsia, polyphagia or heat/cold intolerance. 14 point ROS otherwise negative except for positives noted above in HPI. Vital Signs Vital Signs Vital Signs: 03/18/25 19:19 03/18/25 19:21 03/18/25 19:22 Temperature 98.2 F 98.2 F Temperature Source Oral Oral Pulse Rate 81 81 Respiratory Rate 28 H 28 H Respiratory Effort Respiratory Depth Respiratory Pattern Blood Pressure 194/104 H 194/104 H Blood Pressure Mean 134 134 Pulse Ox 87 87 95 Oxygen Delivery Method Room Air Room Air Nasal Cannula Oxygen Flow Rate (L/min) 2 03/18/25 19:30 03/18/25 19:30 03/18/25 19:31 Temperature Temperature Source Pulse Rate 87 Respiratory Rate 24 H 23 H Respiratory Effort Short of Breath Labored Respiratory Depth Respiratory Pattern Tachypnea Blood Pressure 161/96 H Blood Pressure Mean 117 Pulse Ox 87 94 Oxygen Delivery Method Nasal Cannula Nasal Cannula Oxygen Flow Rate (L/min) 2 2 03/18/25 19:45 03/18/25 19:48 03/18/25 20:11 Temperature Temperature Source Pulse Rate 84 Respiratory Rate 19 H Respiratory Effort Short of Breath Labored Respiratory Depth Deep Respiratory Pattern Tachypnea Blood Pressure Blood Pressure Mean Pulse Ox 90 Oxygen Delivery Method Nasal Cannula Nasal Cannula Oxygen Flow Rate (L/min) 2 3 03/18/25 20:11 03/18/25 20:21 03/18/25 21:00 Temperature 98.3 F 98.8 F Temperature Source Oral Oral Pulse Rate 87 93 Respiratory Rate 24 H 33 H Respiratory Effort Respiratory Depth Respiratory Pattern Blood Pressure 161/89 H 170/105 H Blood Pressure Mean 113 126 Pulse Ox 93 94 95 Oxygen Delivery Method Nasal Cannula Nasal Cannula Nasal Cannula Oxygen Flow Rate (L/min) 3 3 3 Weight Weight: 355 lb 7 oz Body Mass Index (BMI) 55.6 Physical Exam Const alert, oriented x3 and no apparent distress Constitutional Narrative: Patient is morbidly obese and chronically hypoxic. General Appearance: cooperative HEENT normocephalic, head/scalp atraumatic, hearing grossly normal bilaterally and moist oral mucous membranes Eyes PERRL, EOMs intact bilaterally and conjunctivae normal Neck no lymphadenopathy, supple and no JVD Resp Resp Narrative: Diminished breath sounds throughout. Cardio regular rate and regular rhythm GI normal to inspection, nondistended, normoactive bowel sounds, soft to palpation,non-tender and non-distended GI Narrative: Morbidly obese. Extremity Extremity Narrative: Patient has chronic lower extremity venous stasis. Skin Skin Narrative: Patient is no evidence of rash, abscess, wounds or jaundice. Neuro oriented x3, CN's II-XII intact bilaterally, moves all extremities and no focal motor deficits Sensorium / Orientation: awake, alert, oriented to person, oriented to place andoriented to time Speech: speech normal Psych affect normal Results Medical Records Data Attestation: I reviewed the patient's medical records Lab / Micro Data Attestation: I reviewed the patient's lab results. 03/19/25 05:03 03/18/25 19:36 Labs: Laboratory Results - last 24 hr 03/18/25 19:36: WBC 6.4, RBC 4.59 L, Hgb 13.4, Hct 41.6, MCV 90.6, MCH 29.2, MCHC 32.2, RDW Std Deviation 46.6 H, RDW Coeff of Bre 14.2, Plt Count 246, MPV 10.7, Immature Gran % (Auto) 0.200, Neut % (Auto) 70.9 H, Lymph % (Auto) 20.9, Perry % (Auto) 6.1, Eos % (Auto) 1.3, Baso % (Auto) 0.6, AbsoluteNeuts (auto) 4.5, Absolute Lymphs (auto) 1.33, Nucleated RBC % 0, Sodium 139, Potassium 4.3, Chloride 104, Carbon Dioxide 23.7, Anion Gap 11, BUN 13, Creatinine 1.33 H, Estim Creat Clear Calc 88.10, Est GFR (MDRD) Non-Af 62, BUN/Creatinine Ratio 9.6L, Glucose 111 H, Calcium 9.5, Total Bilirubin 1.63 H, AST 52 H, ALT 30, Alkaline Phosphatase 57, Troponin T High Sens 22, NT pro BNP II 1362 H, Total Protein 7.6, Albumin 4.2, Globulin 3.4, Albumin/Globulin Ratio 1.3 Imaging Radiology Impression Chest X-Ray 03/18/25 20:00 IMPRESSION: Findings suggestive of vascular congestion. Reading Location: [facility] Imaging Services [address] [place] [id number] CTA Chest W/WO Contrast MR#: [id number] Acct: [id number] Name: JOSÉ MIGUEL YOUNG . Rep #: [id number] : 1965 M 59 From: Uriel Prabhakar MD PCP: Dr. Pierce Wells MD Status: ADM CHAGO Study: CTA Chest W/WO Contrast Date of Exam: 03/18/25 Exam# [id number] Ordering Dr: Thierno Campos DO PROCEDURE: CTA CHEST W/WO CONTRAST 03/18/2025 REASON FOR EXAM: SOB WITH ELEVATED D-DIMER. EVAL FOR PE. TECHNIQUE: CTA axial imaging of the chest with intravenous contrast. Multiplanar and multisequence images wereobtained. PATIENT PREPARATION: Per protocol CONTRAST: Omnipaque 350 VOLUME: 100 mL Not Provided Gauge IV One or more dose reduction techniques were used (e.g., Automated exposure control, adjustment of the mA and/or kV according to patient size, use of iterative reconstruction technique). COMPARISON: CT chest 02/26/2020 FINDINGS: Hardware: None Lymph nodes: Multiple prominent-mildly enlarged lymph nodes. For example 15 mm left para-aortic node (series 2 image 169); 20 mm right hilar node (image 147) and 12 mm left hilar node (image 145). Heart: Mild cardiomegaly. Stable small pericardial effusion. Mild coronary artery calcifications. Thoracic Aorta: No thoracic aortic aneurysm or dissection. Pulmonary Vessels: Main pulmonary artery is enlarged, and measures 3.8 cm, likely secondary to pulmonary arterial hypertension. No evidence of acute pulmonary emboli through the major subsegmental branches. Most Proximal Level of Embolus (if embolus present): Absent Lungs and Airways: Central airways are patent without endobronchial lesions. Diffuse mosaic attenuation, throughout both mathew thoraces. Mild interlobular septal thickening. Increased small right and traceleft pleural effusions with atelectasis. Additional scattered bilateral ground-glass opacities. Constellation of findings, concerning for pulmonary edema. No pneumothorax. Upper Abdomen: Right adrenal fat attenuation mass which measures 5.7 x 5.9 cm, compatible with an adrenal myelolipoma. Bones: Degenerative changes of the thoracic spine. CT/CTA Chest W/WO Contrast IMPRESSION: 1. Bilateral pleural effusions, mosaic attenuation, interlobular septal thickening and ground-glassopacities, concerning for pulmonary edema. 2. Mild cardiomegaly and stable small pericardial effusion. 3. Multiple prominent-mildly enlarged unchanged lymph nodes, which are likely reactive. 4. Findings suggestive of pulmonary hypertension. 5. Right adrenal myelolipoma. Reading Location[facility] CC: Dr. Thierno Campos DO; Dr. Pierce Wells MD ~ Prn Physical Therapist: Signed Assessment & Plan Assessment/Plan (1) Hypertensive urgency: (2) Diastolic CHF, acute on chronic: (3) Respiratory insufficiency: (4) Morbid obesity with BMI of 50.0-59.9, adult: (5) Obesity hypoventilation syndrome: (6) D-dimer, elevated: PLAN: Plan 1. Hypertensive Urgency; evidenced by blood pressure of 194/104 mmHg present on admission - Admit to PCU under observation status. Give hydralazine IV prn for systolic blood pressure > 160 mmHg. Patient was treated with Lasix by the ER physician with elevated creatinine of 1.33 mg/dL present on admission (up from his baseline of 1 mg/dL last admission a few days ago on 03/05/2025). Therefore,hewas treated with IV albumin to prevent worsening of his renal function as he can likely not be diuresed further without inducing kidney failure. 2. AE of chronic diastolic CHF; with LVEF ~70% with stage I diastolic dysfunction and elevated Noted with NT pro-BNP II of 1,362 pg/mL present on admission complicating #1 - Patient treated with IV furosemide in the ER with additional treatment with IV albumin to prevent worsening renal function. Re check CXR and NT pro-BNP in the AM to follow trend. 3. Ijqpx-[id number]; with BMI of 55.7 this admission with Obesity Hypoventilation Syndrome causing Acute Respiratory Insufficiency compounding #1 & #2 - Weight loss was recommended. This complicates his case and may hamper recovery. 4. Mildly elevated D-dimer of 0.73 present on admission with the patient already on NOAC adding to the medical complexity of #1 - #3 - Checked CT of chest with IV contrast to evaluate for possible PEwith CT revealing no evidenceof pulmonary embolism with bilateral pleural effusions, mosaic attenuation, interlobular septal thickening ground-glassy facies concerning for pulmonary edema with mild cardiomegaly and stable small pericardial effusion findings suggestive of pulmonary hypertension. 5. Recently diagnosed Atrial Fibrillation; on apixaban amplifying the pathologyof #1 - #4 - Resume apixaban as before. 6. Essential hypertension; on atenolol-hydrochlorothiazide, nifedipine, losartan and guanfacine - Maintain home regimen plus give IV hydralazine as needed as outlined in #1. 7. Recent admission here from March 02, 2025 to March 05, 2025 with CTA of the chest with IV contrast that revealed no evidence of pulmonary embolism but did show Cardiomegaly with Small Pericardial Effusion with a corresponding elevated NT pro-BNP II of 1,559 pg/mL present on admission consistent with suspected new- onset AE of CHF of uncertain type complicated by clinical evidence of Acute Respiratory Insufficiency in addition to laboratory evidence of Hyperglycemia of163 mg/dL present on admission suspicious for DM-2 - Noted. 8. Chronic lower extremity lymphedema - Stable. 9. History of muscle spasms; on orphenadrine - Current management to continue. 10. Depression with anxiety; on escitalopram and clonazepam - Maintain current therapy. 11. BPH; on finasteride and tamsulosin - Stable. 12. 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 13. GERD; on omeprazole - Resume PPI. 14. OA; with shoulder pain - Give acetaminophen prn for pain or fever. 15. DVT prophylaxis - Patient apixaban for #5. Total time: Approximately (but not less than) 70 minutes. Charges/Coding Visit Charges OBSV E&M: 06104 Observ/hosp same date L2 03/19/25 06 Cosigner Signature (if applicable): CC: Dr. Thierno Campos DO; Dr. Pierce Wells MD~ Signed [facility]05-12-2025 Radiology Diagnostic study note [facility] Imaging Services [address] [place] [address] Chest 1 View (Portable) MR#: [id number] Acct: [id number] Name: JOSÉ MIGUEL YOUNG . Rep #: [id number] : 1965 M 59 From: Ronald Goel MD PCP: Dr. Pierce Wells MD Status: AD M CHAGO Study:Chest 1 View (Portable) Date of Exam: 03/19/25 Exam# [id number] Ordering Dr: Thierno Call DO PROCEDURE: CHEST 1 VIEW (PORTABLE) 03/19/2025 REASON FOR EXAM: AE CHF TECHNIQUE: Frontal view of the chest. 2 images to include the entire chest COMPARISON: 03/18/2025 FINDINGS: No significant interval change in appearance of mild patchy perihilar lower zonepredominant ill-defined opacity which may represent mild edema. Cardiac silhouette is again enlarged for technique. 2 cmsclerotic focus at the proximal right humerus, correlate with history. RAD/Chest 1 View (Portable) IMPRESSION: No significant interval change in appearance of mild patchy perihilar lower zonepredominant ill-defined opacity which may represent mild edema. Cardiac silhouette is again enlarged for technique. Reading Location: [id number] CC: Dr. Thierno Campos DO; Dr. Pierce Wells MD ~ Prn Physical Therapist: Signed [facility]05-11-2025 Discharge summary Author Lyle Moise [facility] Note Date/Time March 18, 2025 9:22p m [facility] Medical Records Department [address] [place] [address] Emergency Department Summary 03/18/25 MR#: [id number] Acct: [id number] Name: JOSÉ MIGUEL YOUNG . Rep #: [id number] : 1965 59 From: Lyle Moise MD PCP: Dr. Pierce Wells MD Status:RE G ER Location: ED HPI History of Present Illness Chief Complaint: Shortness of Breath Informant: patient Onset/Context/Timing Onset: Days Context: Gradual Onset Timing: Continuous Worsened by: exertion Narrative Narrative: Patient presents for shortness of breath. Recent admission with an echocardiogram and he was told he had CHF. He takes Lasix every other day and has been compliant. He is also compliant with his anticoagulation which he started for atrial fibrillation. He is denying any chest pain, fever, GI symptoms. 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 Prior similar symptoms: Yes Recent Illness/Hospitalization: Yes [facility] REPLACED BY [facility] Medical History Lymphedema Obesity hypoventilation syndrome Morbid obesity Shoulder pain HTN (hypertension) Home Medications ?Medication ?Instructions ?Recorded ?Last Taken ?Type guanfacine 1 mg tablet 1 tablet PO QPM BLOOD PRESSU RE 30 05/09/18 03/01/25 History days ##30 minoxidil 10 mg tablet 20 mg PO DAILY HAIR GROWTH 1 11/26/18 03/02/25 History finasteride 5 mg tablet 5 mg PO QPM 03/02/25 5 History losartan 100 mg tablet 100 mg PO DAILY 03/02/25 History nifedipine 30 mg tablet,extended 30 mg PO DAILY 03/02/25 History release 24 hr omeprazole 20 mg capsule,delayed 20 mg PO DAILY 03/02/25 History release tamsulosin 0.4 mg capsule 0.4 mg PO QHS 03/02/2503/01 History apixaban 5 mg tablet (Eliquis) 5 mg PO BID 30 days #60 tabs 03/05/25 Unknown Rx aspirin 81 mg chewable tablet 81 mg PO DAILY@0800 30 d ays #30 03/05/25 Unknown Rx tabs atenolol 100 mg tablet 100 mg PO DAILY 30 days #30 tabs 03/05/25 Unknown Rx escitalopram oxalate 10 mg tablet 10 mg PO DAILY 03/18 Unknown History furosemide 20 mg tablet (Lasix) 20 mg PO .COMPLEX nirav a 03/18/25 Unknown History Allergy/AdvReac Type Severity Reaction Status Date / Time No Known Allergies Allergy Verified 03/02/25 19:10 Social History Smoking Status: Never smoker alcohol intake: never ROS ROS ED Constitutional Constitutional ED: Denies chills or fever(s) Eyes Eyes: Denies change in vision ENT ENT ED: Denies rhinorrhea or sore throat Cardiovascular Cardiovascular: Denies chest pain, orthopnea, palpitations, paroxysmal nocturnaldyspnea or racing heartbeat Respiratory/Chest Respiratory/Chest: Reports cough, dyspnea and dyspnea on exertion; Denies orthopnea, paroxysmal nocturnal dyspnea or sputum Gastrointestinal Gastrointestinal: Denies abdominal pain, nausea or vomiting Integumentary Denies rash Neurologic Neurologic: Denies headache(s), paresthesias or weakness Hematologic/Lymphatic Hematologic/Lymphatic: Denies easy bruising EXAM Physical Exam Const Vital Signs: 03/18/25 19:19 03/18/25 19:21 03/18/25 19:22 Temperature 98.2 F 98.2 F Temperature Source Oral Oral Pulse Rate 81 81 Respiratory Rate 28 H 28 H Respiratory Effort Respiratory Depth Respiratory Pattern Blood Pressure 194/104 H 194/104 H Blood Pressure Mean 134 134 Pulse Ox 87 87 95 Oxygen Delivery Method Room Air Room Air Nasal Cannula Oxygen Flow Rate (L/min) 2 03/18/25 19:30 03/18/25 19:30 03/18/25 19:31 Temperature Temperature Source Pulse Rate 87 Respiratory Rate 24 H 23 H Respiratory Effort Short of Breath Labored Respiratory Depth Respiratory Pattern Tachypnea Blood Pressure 161/96 H Blood Pressure Mean 117 Pulse Ox 87 94 Oxygen Delivery Method Nasal Cannula Nasal Cannula Oxygen Flow Rate (L/min) 2 2 03/18/25 19:45 03/18/25 19:48 03/18/25 20:11 Temperature Temperature Source Pulse Rate 84 Respiratory Rate 19 H Respiratory Effort Short of Breath Labored Respiratory Depth Deep Respiratory Pattern Tachypnea Blood Pressure Blood Pressure Mean Pulse Ox 90 Oxygen Delivery Method Nasal Cannula Nasal Cannula Oxygen Flow Rate (L/min) 2 3 03/18/25 20:11 03/18/25 20:21 03/18/25 21:00 Temperature 98.3 F 98.8 F Temperature Source Oral Oral Pulse Rate 87 93 Respiratory Rate 24 H 33 H Respiratory Effort Respiratory Depth Respiratory Pattern Blood Pressure 161/89 H 170/105 H Blood Pressure Mean 113 126 Pulse Ox 93 94 95 Oxygen Delivery Method Nasal Cannula Nasal Cannula Nasal Cannula Oxygen Flow Rate (L/min) 3 3 3 Positive well nourished, well developed and obese General Appearance ED: well developed Nutritional Appearance: obese HEENT Reports moist mucous membranes Negative for trauma Eyes Negative for PERRL or EOMs intact bilaterally Chest Wall inspection of chest normal and palpation of chest normal Resp normal respiratory effort and clear to auscultation bilaterally Cardio regular rate; Negative for regular rhythm GI normal to inspection, nondistended, normoactive bowel sounds Extremity General Extremety ED: Yes edema General Extremity: edema Neuro oriented x3 and CN's II-XII intact bilaterally Sensorium / Orientation: alert Psych mental status grossly normal Skin no rashes or lesions noted and no wounds MDM MDM MDM Narrative Medical decision making narrative: Patient had an EKG that I interpreted. It showed atrial fibrillation with no evidence of ischemia or infarction pattern. He was placed on the monitor. He was found to be hypoxic in the upper 80s on room air and required 2 L nasal cannula. Everything sounded more like cardiac, heart failure. He did not have infectioussymptoms and did not have chest pain. He is compliant with his Eliquis so PE was felt to be unlikely. Patient later required 3 L of nasal cannula. This is new for him. His workup looked pretty good. Troponin was normal. BNP is elevated but stable. Chest x-ray was reviewed by me and the radiologist. Showed pulmonary edema pattern. Patient was treated with a dose of Lasix here. He is taking Lasix every other day and I believe he needs more aggressive diuresis. However his creatinine is starting to elevate. It is 1.3 here today which was elevated from his baseline. I suspect this will continue to rise with further treatment. He is requiring oxygen and will need close monitoring. I contacted the hospitalist to admit forfurther care. Patient will be admitted for observation to PCU. Impression #1 CHF Impression #2 hypoxic respiratory failure Impression #3 elevated creatinine Lab Data Labs: Laboratory Results - last 24 hr 03/18/25 19:36 WBC 6.4 RBC 4.59 L Hgb 13.4 Hct 41.6 MCV 90.6 MCH 29.2 MCHC 32.2 RDW Std Deviation 46.6 H RDW Coeff of Bre 14.2 Plt Count 246 MPV 10.7 Immature Gran % (Auto) 0.200 Neut % (Auto) 70.9 H Lymph % (Auto) 20.9 Perry % (Auto) 6.1 Eos % (Auto) 1.3 Baso % (Auto) 0.6 Absolute Neuts (auto) 4.5 Absolute Lymphs (auto) 1.33 Nucleated RBC % 0 Sodium 139 Potassium 4.3 Chloride 104 Carbon Dioxide 23.7 Anion Gap 11 BUN 13 Creatinine 1.33 H Estim Creat Clear Calc 88.10 Est GFR (MDRD) Non-Af 62 BUN/Creatinine Ratio 9.6 L Glucose 111 H Calcium 9.5 Total Bilirubin 1.63 H AST 52 H ALT 30 Alkaline Phosphatase 57 Troponin T High Sens 22 NT pro BNP II 1362 H Total Protein 7.6 Albumin 4.2 Globulin 3.4 Albumin/Globulin Ratio 1.3 Radiography Chest X-Ray - ED: 1 View, Read by ED Physician, Read by Radiologist and Lungs (pulmonary edema) Diagnostic Testing: Clinical Impression(s) from Imaging Studies Chest X-Ray 03/18/25 20:00 IMPRESSION: Findings suggestive of vascular congestion. Reading Location: [facility] Management Discussion w/another healthcare provider: Hospitalist Critical Care Time Critical Care Time: Yes Critical care time (excluding procedures): 30-74 minutes, Including time spent:,Discussing w/Patient &/or Family/Labor Conciliator, Arranging Admission or Transfer andPerforming Direct Patient Care at Bedside Discharge Plan Triage Chief Complaint: Shortness of Breath ED Provider: Lyle Moise Dx/Rx/DC Orders Prescriptions: No Action guanfacine 1 mg tablet 1 tablet PO QPM 30 Days Qty: 30 Patient Comments: minoxidil 10 MG tablet 20 mg PO DAILY Patient Comments: TAKE 2 TABLETS BY MOUTH ONCE DAILY Rx Instructions: escitalopram oxalate 10 mg tablet 10 mg PO DAILY furosemide [Lasix] 20 mg tablet 20 mg PO .COMPLEX Rx Instructions: 20 mg orally every other day; nifedipine 30 mg tablet extended release 24hr 30 mg PO DAILY tamsulosin 0.4 mg capsule 0.4 mg PO QHS omeprazole 20 mg capsule,delayed release(DR/EC) 20 mg PO DAILY losartan 100 mg tablet 100 mg PO DAILY finasteride 5 mg tablet 5 mg PO QPM atenolol 100 mg Tablet 100 mg PO DAILY 30 Days Qty: 30 2RF aspirin 81 mg Tablet,Chewable 81 mg PO DAILY@0800 30 Days Qty: 30 2RF Eliquis 5 mg Tablet 5 mg PO BID 30 Days Qty: 60 2RF Primary Care Provider: Pierce Wells Referrals: Pierce Wells MD [Primary Care Provider] - Print Language: Palauan What to do if you have Problems For any increased pain, shortness of breath, bleeding, nausea or vomiting, chestpain, or any unexpected problems, contact your Primary Care Provider. Call [facility] ([phone]) or report to the closest Emergency Room. Call 911 if necessary. 03/18/252121 <Electronically signed by Lyle Moise MD> Cosigner Signature (if applicable): CC: Dr. Pierce Wells MD ~ Signed [facility] Work Phone: 1(150) 991-986305-11-2025 Radiology Diagnostic study note [facility] Imaging Services [address] [place] [id number] CTA Chest W/WO Contrast MR#: [id number] Acct: [id number] Name: JOSÉ MIGUEL YOUNG . Rep #: [id number] : 1965 M 59 From: Mary Ellen Prabhakar MD PCP: Dr. Pierce Wells MD Status: AD Negrita ANDERS Study:CTA Chest W/WO Contrast Date of Exam: 03/18/25 Exam# [id number] Ordering Dr: Thierno Call DO PROCEDURE: CTA CHEST W/WO CONTRAST 03/18/2025 REASON FOR EXAM: SOB WITH ELEVATED D-DIMER. EVAL FOR PE. TECHNIQUE: CTA axial imaging of the chest with intravenous contrast. Multiplanar and multisequence images wereobtained. PATIENT PREPARATION: Per protocol CONTRAST: Omnipaque 350 VOLUME: 100 mL Not Provided Gauge IV One or more dose reduction techniques were used (e.g., Automated exposure control, adjustment of the mA and/or kV according to patient size, use of iterative reconstruction technique). COMPARISON: CT chest 02/26/2020 FINDINGS: Hardware: None Lymph nodes: Multiple prominent-mildly enlarged lymph nodes. For example 15 mm left para-aortic node (series 2 image 169); 20 mm right hilar node (image 147) and 12 mm left hilar node (image 145). Heart: Mild cardiomegaly. Stable small pericardial effusion. Mild coronary artery calcifications. Thoracic Aorta: No thoracic aortic aneurysm or dissection. Pulmonary Vessels: Main pulmonary artery is enlarged, and measures 3.8 cm, likely secondary to pulmonary arterial hypertension. No evidence of acute pulmonary emboli through the major subsegmental branches. Most Proximal Level of Embolus (if embolus present): Absent Lungs and Airways: Central airways are patent without endobronchial lesions. Diffuse mosaic attenuation, throughout both mathew thoraces. Mild interlobular septal thickening. Increased small right and traceleft pleural effusions with atelectasis. Additional scattered bilateral ground-glass opacities. Constellation of findings, concerning for pulmonary edema. No pneumothorax. Upper Abdomen: Right adrenal fat attenuation mass which measures 5.7 x 5.9 cm, compatible with an adrenal myelolipoma. Bones: Degenerative changes of the thoracic spine. CT/CTA Chest W/WO Contrast IMPRESSION: 1. Bilateral pleural effusions, mosaic attenuation, interlobular septal thickening and ground-glassopacities, concerning for pulmonary edema. 2. Mild cardiomegaly and stable small pericardial effusion. 3. Multiple prominent-mildly enlarged unchanged lymph nodes, which are likely reactive. 4. Findings suggestive of pulmonary hypertension. 5. Right adrenal myelolipoma. Reading Location: [facility] CC: Dr. Thierno Campos DO; Dr. Pierce Wells MD ~ Prn Physical Therapist: Signed [facility]05-11-2025 Discharge summary [facility] Medical Records Department [address] [place] [id number] Emergency Department Summary 03/18/25 MR#: [id number] Acct: [id number] Name: JOSÉ MIGUEL YOUNG . Rep #: [id number] : 1965 59 From: Lyle Moise MD PCP: Dr. Pierce Wells MD Status:RE G ER Location: ED HPI History of Present Illness Chief Complaint: Shortness of Breath Informant: patient Onset/Context/Timing Onset: Days Context: Gradual Onset Timing: Continuous Worsened by: exertion Narrative Narrative: Patient presents for shortness of breath. Recent admission with an echocardiogram and he was told he had CHF. He takes Lasix every other day and has been compliant. He is also compliant with his anticoagulation which he started for atrial fibrillation. He is denying any chest pain, fever, GI symptom s. 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 Prior similar symptoms: Yes Recent Illness/Hospitalization: [facility] Medical History Lymphedema Obesity hypoventilation syndrome Morbid obesity Shoulder pain HTN (hypertension) Home Medications ?Medication ?Instructions ?Recorded ?Last Taken ?Type guanfacine 1 mg tablet 1 tablet PO QPM BLOOD PRESSU RE 30 05/09/18 03/01/25 History days ##30 minoxidil 10 mg tablet 20 mg PO DAILY HAIR GROWTH 1 11/26/18 03/02/25 History finasteride 5 mg tablet 5 mg PO QPM 03/02/25 5 History losartan 100 mg tablet 100 mg PO DAILY 03/02/25 History nifedipine 30 mg tablet,extended 30 mg PO DAILY 03/02/25 History release 24 hr omeprazole 20 mg capsule,delayed 20 mg PO DAILY 03/02/25 History release tamsulosin 0.4 mg capsule 0.4 mg PO QHS 03/02/2503/01 History apixaban 5 mg tablet (Eliquis) 5 mg PO BID 30 days #60 tabs 03/05/25 Unknown Rx aspirin 81 mg chewable tablet 81 mg PO DAILY@0800 30 d ays #30 03/05/25 Unknown Rx tabs atenolol 100 mg tablet 100 mg PO DAILY 30 days #30 tabs 03/05/25 Unknown Rx escitalopram oxalate 10 mg tablet 10 mg PO DAILY 03/18 Unknown History furosemide 20 mg tablet (Lasix) 20 mg PO .COMPLEX nirav a 03/18/25 Unknown History Allergy/AdvReac Type Severity Reaction Status Date / Time No Known Allergies Allergy Verified 03/02/25 19:10 Social History Smoking Status: Never smoker alcohol intake: never ROS ROS ED Constitutional Constitutional ED: Denies chills or fever(s) Eyes Eyes: Denies change in vision ENT ENT ED: Denies rhinorrhea or sore throat Cardiovascular Cardiovascular: Denies chest pain, orthopnea, palpitations, paroxysmal nocturnaldyspnea or racing heartbeat Respiratory/Chest Respiratory/Chest: Reports cough, dyspnea and dyspnea on exertion; Denies orthopnea, paroxysmal nocturnal dyspnea or sputum Gastrointestinal Gastrointestinal: Denies abdominal pain, nausea or vomiting Integumentary Denies rash Neurologic Neurologic: Denies headache(s), paresthesias or weakness Hematologic/Lymphatic Hematologic/Lymphatic: Denies easy bruising EXAM Physical Exam Const Vital Signs: 03/18/25 19:19 03/18/25 19:21 03/18/25 19:22 Temperature 98.2 F 98.2 F Temperature Source Oral Oral Pulse Rate 81 81 Respiratory Rate 28 H 28 H Respiratory Effort Respiratory Depth Respiratory Pattern Blood Pressure 194/104 H 194/104 H Blood Pressure Mean 134 134 Pulse Ox 87 87 95 Oxygen Delivery Method Room Air Room Air Nasal Cannula Oxygen Flow Rate (L/min) 2 03/18/25 19:30 03/18/25 19:30 03/18/25 19:31 Temperature Temperature Source Pulse Rate 87 Respiratory Rate 24 H 23 H Respiratory Effort Short of Breath Labored Respiratory Depth Respiratory Pattern Tachypnea Blood Pressure 161/96 H Blood Pressure Mean 117 Pulse Ox 87 94 Oxygen Delivery Method Nasal Cannula Nasal Cannula Oxygen Flow Rate (L/min) 2 2 03/18/25 19:45 03/18/25 19:48 03/18/25 20:11 Temperature Temperature Source Pulse Rate 84 Respiratory Rate 19 H Respiratory Effort Short of Breath Labored Respiratory Depth Deep Respiratory Pattern Tachypnea Blood Pressure Blood Pressure Mean Pulse Ox 90 Oxygen Delivery Method Nasal Cannula Nasal Cannula Oxygen Flow Rate (L/min) 2 3 03/18/25 20:11 03/18/25 20:21 03/18/25 21:00 Temperature 98.3 F 98.8 F Temperature Source Oral Oral Pulse Rate 87 93 Respiratory Rate 24 H 33 H Respiratory Effort Respiratory Depth Respiratory Pattern Blood Pressure 161/89 H 170/105 H Blood Pressure Mean 113 126 Pulse Ox 93 94 95 Oxygen Delivery Method Nasal Cannula Nasal Cannula Nasal Cannula Oxygen Flow Rate (L/min) 3 3 3 Positive well nourished, well developed and obese General Appearance ED: well developed Nutritional Appearance: obese HEENT Reports moist mucous membranes Negative for trauma Eyes Negative for PERRL or EOMs intact bilaterally Chest Wall inspection of chest normal and palpation of chest normal Resp normal respiratory effort and clear to auscultation bilaterally Cardio regular rate; Negative for regular rhythm GI normal to inspection, nondistended, normoactive bowel sounds Extremity General Extremety ED: Yes edema General Extremity: edema Neuro oriented x3 and CN's II-XII intact bilaterally Sensorium / Orientation: alert Psych mental status grossly normal Skin no rashes or lesions noted and no wounds MDM MDM MDM Narrative Medical decision making narrative: Patient had an EKG that I interpreted. It showed atrial fibrillation with no evidence of ischemia or infarction pattern. He was placed on the monitor. He was found to be hypoxic in the upper 80s on room air and required 2 L nasal cannula. Everything sounded more like cardiac, heart failure. He did not have infectioussymptoms and did nothave chest pain. He is compliant with his Eliquis so PE was felt to be unlikely. Patient later required 3 L of nasal cannula. This is new for him. His workup looked pretty good. Troponin was normal. BNP is elevated but stable. Chest x-ray was reviewed by me and the radiologist. Showed pulmonary edema pattern. Patient was treated with a dose of Lasix here. He is taking Lasix every other day and I believe he needs more aggressive diuresis. However his creatinine is starting to elevate. It is 1.3 here today which was elevated from his baseline. I suspect this will continue to rise with further treatment. He is requiring oxygen and will need close monitoring. I contacted the hospitalist to admit forfurther care. Patient will be admitted for observation to PCU. Impression #1 CHF Impression #2 hypoxic respiratory failure Impression #3 elevated creatinine Lab Data Labs: Laboratory Results - last 24 hr 03/18/25 19:36 WBC 6.4 RBC 4.59 L Hgb 13.4 Hct 41.6 MCV 90.6 MCH 29.2 MCHC 32.2 RDW Std Deviation 46.6 H RDW Coeff of Bre 14.2 Plt Count 246 MPV 10.7 Immature Gran % (Auto) 0.200 Neut % (Auto) 70.9 H Lymph % (Auto) 20.9 Perry % (Auto) 6.1 Eos % (Auto) 1.3 Baso % (Auto) 0.6 Absolute Neuts (auto) 4.5 Absolute Lymphs (auto) 1.33 Nucleated RBC % 0 Sodium 139 Potassium 4.3 Chloride 104 Carbon Dioxide 23.7 Anion Gap 11 BUN 13 Creatinine 1.33 H Estim Creat Clear Calc 88.10 Est GFR (MDRD) Non-Af 62 BUN/Creatinine Ratio 9.6 L Glucose 111 H Calcium 9.5 Total Bilirubin 1.63 H AST 52 H ALT 30 Alkaline Phosphatase 57 Troponin T High Sens 22 NT pro BNP II 1362 H Total Protein 7.6 Albumin 4.2 Globulin 3.4 Albumin/Globulin Ratio 1.3 Radiography Chest X-Ray - ED: 1 View, Read by ED Physician, Read by Radiologist and Lungs (pulmonary edema) Diagnostic Testing: Clinical Impression(s) from Imaging Studies Chest X-Ray 03/18/25 20:00 IMPRESSION: Findings suggestive of vascular congestion. Reading Location: [facility] Management Discussion w/another healthcare provider: Hospitalist Critical Care Time Critical Care Time: Yes Critical care time (excluding procedures): 30-74 minutes, Including time spent:,Discussing w/Patient &/or Family/Labor Conciliator, Arranging Admission or Transfer andPerforming Direct Patient Care at Bedside Discharge Plan Triage Chief Complaint: Shortness of Breath ED Provider: Lyle Moise Dx/Rx/DC Orders Prescriptions: No Action guanfacine 1 mg tablet 1 tablet PO QPM 30 Days Qty: 30 Patient Comments: minoxidil 10 MG tablet 20 mg PO DAILY Patient Comments: TAKE 2 TABLETS BY MOUTH ONCE DAILY Rx Instructions: escitalopram oxalate 10 mg tablet 10 mg PO DAILY furosemide [Lasix] 20 mg tablet 20 mg PO .COMPLEX Rx Instructions: 20 mg orally every other day; nifedipine 30 mg tablet extended release 24hr 30 mg PO DAILY tamsulosin 0.4 mg capsule 0.4 mg PO QHS omeprazole 20 mg capsule,delayed release(DR/EC) 20 mg PO DAILY losartan 100 mg tablet 100 mg PO DAILY finasteride 5 mg tablet 5 mg PO QPM atenolol 100 mg Tablet 100 mg PO DAILY 30 Days Qty: 30 2RF aspirin 81 mg Tablet,Chewable 81 mg PO DAILY@0800 30 Days Qty: 30 2RF Eliquis 5 mg Tablet 5 mg PO BID 30 Days Qty: 60 2RF Primary Care Provider: Pierce Wells Referrals: Pierce Wells MD [Primary Care Provider] - Print Language: Palauan What to do if you have Problems For any increased pain, shortness of breath, bleeding, nausea or vomiting, chestpain, or any unexpected problems, contact your Primary Care Provider. Call [facility] ([phone]) or report tothe closest Emergency Room. Call 911 if necessary. 03/18/252121 Cosigner Signature (if applicable): CC: Dr. Pierce Wells MD ~ Signed [facility]05-11-2025 Radiology Diagnostic study note [facility] Imaging Services [address] [place] [address] Chest 1 View (Portable) MR#: [id number] Acct: [id number] Name: JOSÉ MIGUEL YOUNG . Rep #: [id number] : 1965 M 59 From: Mary Ellen Prabhakar MD PCP: Dr. Pierce Wells MD Status: RE G ER Study:Chest 1 View (Portable) Date of Exam: 03/18/25 Exam# [id number] Ordering Dr: Arcadio Moise MD PROCEDURE: CHEST 1 VIEW (PORTABLE) 03/18/2025 REASON FOR EXAM: DYSPNEA, EDEMA TECHNIQUE: Frontal view of the chest. COMPARISON: CT chest 03/02/2025 FINDINGS: Hardware: None Heart: Heart size is moderately enlarged. Lungs: Stable bilateral perihilar prominence. Linear opacity right lower lobe, likely secondary to subsegmental atelectasis. Bibasilar atelectasis. No pneumothorax. No pleural effusion. Bones: The bones are unremarkable. Other: RAD/Chest 1 View (Portable) IMPRESSION: Findings suggestive of vascular congestion. Reading Location: [facility] CC: Dr. Lyle Moise MD; Dr. Pierce Wells MD ~ Prn Physical Therapist: Signed [facility]04-28-2025 Consult note [facility] Medical Records Department [address] [place] [address] Counseling Note - Pharmacy 03/05/25 1507 MR#: [id number] Acct: [id number] Name: JOSÉ MIGUEL YOUNG . Rep #: [id number] : 1965 59 From: Savanna Soriano PCP: Dr. Pierce Wells MD Status:AD M IN Y [id number] Pharmacy [facility] has performed discharge medication reconciliation and counseling for this patient. 1. Aspirin 81mg PO daily - stop aspirin 325mg 2. Atenolol 100mg PO daily - stop atenolol/chlorthalidone 3. Apixaban 5mg PO BID 4. Furosemide 20mg PO daily PRN edema The patient's discharge medication list was reviewed for discrepancies and discrepancies were resolved. The patient was counseled on the following discharge medications and changes in medications for homegoing were reviewed. The Reason for Use, instructions for use, and potential side effects were reviewed for all new medications. The patient's questions regarding all of their medications were answered. The patient was able to verbally demonstrate an understanding of their dischargemedications. Patient counseled by pharmacy helperOmega. Medications at Discharge Home Medications guanfacine 1 mg tablet 1 tablet PO QPM BLOOD PRESSURE 30 days ##30 05/09/18 escitalopram oxalate 20 mg tablet 20 mg PO DAILY depression 01/29/19 minoxidil 10 mg tablet 20 mg PO DAILY HAIR GROWTH 09/26/19 finasteride 5 mg tablet 5 mg PO QPM 03/02/25 losartan 100 mg tablet 100 mg PO DAILY 03/02/25 nifedipine 30 mg tablet,extended release 24 hr 30 mg PO DAILY 03/02/25 omeprazole 20 mg capsule,delayed release 20 mg PO DAILY 03/02/25 tamsulosin 0.4 mg capsule 0.4 mg PO QHS 03/02/25 apixaban 5 mg tablet (Eliquis) 5 mg PO BID 30 days #60 tabs 03/05/25 aspirin 81 mg chewable tablet 81 mg PO DAILY@0800 30 days #30 tabs 03/05/25 atenolol 100 mg tablet 100 mg PO DAILY 30 days #30 tabs 03/05/25 furosemide 20 mg tablet (Lasix) 20 mg PO DAILY PRN edema #30 tabs 03/05/25 03/05/25 1509 Date _ Savanna Cordon Signature (if applicable): Date CC: ~ Signed [facility]04-28-2025 Discharge summary [facility] Medical Records Department [address] [place] [address] Instructions for Home/Discharge Instructions 03/05/25 1445 MR#: [id number] Acct: [id number] Name: JOSÉ MIGUEL YOUNG Sr. Rep #: [id number] : 1965 59 From: Jostin castro DO PCP: Dr. Pierce Wells MD Status:AD M IN Discharge Instructions Diet Discharge Diet: 2000 Calorie Control Diet and 4000 mg Sodium Diet DC O2, CPAP, BIPAP needs Home O2 Discharge instructions: No Dressing / Incision Discharge Activity: No Restrictions Follow Up Care Test Results: Test results from this visit will be discussed in further detail at your follow- up appointment, if applicable. Discharge Plan Admission Admit Date/Time: 03/02/25 22:46 Primary Reason for Your Visit: Shortness of breath Attending Provider: Jostin Arriaza Primary Care Provider: Pierce Wells Consulting Providers: Thierno Campos; Pierce Florian Instructions Additional Instructions / Restrictions: Please take medications as noted below. Importantly, take Eliquis twice daily for your A-fib and decrease dose of aspirin to 81 mg daily (baby aspirin). TakeLasix up to once daily as needed. Follow-up in the cardiology office in the next few weeks. Discharge Orders/Prescriptions Prescriptions: New atenolol 100 mg Tablet 100 mg PO DAILY 30 Days Qty: 30 2RF aspirin 81 mg Tablet,Chewable 81 mg PO DAILY@0800 30 Days Qty: 30 2RF Eliquis 5 mg Tablet 5 mg PO BID 30 Days Qty: 60 2RF furosemide [Lasix] 20 mg tablet 20 mg PO DAILY PRN (Reason: edema) Qty: 30 2RF Continued guanfacine 1 mg tablet 1 tablet PO QPM 30 Days Qty: 30 Patient Comments: escitalopram oxalate 20 MG tablet 20 mg PO DAILY minoxidil 10 MG tablet 20 mg PO DAILY Patient Comments: TAKE 2 TABLETS BY MOUTH ONCE DAILY Rx Instructions: nifedipine 30 mg tablet extended release 24hr 30 mg PO DAILY tamsulosin 0.4 mg capsule 0.4 mg PO QHS omeprazole 20 mg capsule,delayed release(DR/EC) 20 mg PO DAILY losartan 100 mg tablet 100 mg PO DAILY finasteride 5 mg tablet 5 mg PO QPM Discontinued atenolol-chlorthalidone 1 TAB tablet 1 tab PO DAILY Rx Instructions: aspirin 325 MG tablet 325 mg PO DAILY@0800 ibuprofen 800 mg tablet 800 mg PO BID PRN PRN (Reason: fever or pain) Referrals / Follow Up: Sagrario Casanova MD [Med Staff - Active Staff] - Pierce Wells MD [Primary Care Provider] - Disposition Disposition (needs filled in before D/C Order can be placed): Home, Self Care 03/05/25 1448Alexgeorge Arriaza DO CC: Dr. Thienro Campos DO; Dr. Pierce Wells MD; Dr. Pierec Florian DO ~ Signed [facility]04-28-2025 [facility] Medical Records Department [address] [place] [address] Discharge Summary 03/05/25 1446 MR#: [id number] Acct: [id number] Name: JOSÉ MIGUEL YUONG . Rep #: [id number] : 1965 59 From: Jostin Arriaza DO PCP: Dr. Pierce Wells MD Status:DIS IN [id number] Prov[facility] Date of Admission: 03/02/25 Date of Discharge: 03/05/25 Primary Care Physician: Dr. Pierce Wells MD Reason For Visit: AE CHR, ACUTE BRONCHOSPASM, OHS AND Diagnosis Discharge Diagnosis (1) CHF (congestive heart failure): Status: Acute Code(s): I50.9 - Heart failure, unspecified Qualifiers: Heart failure chronicity: acute Heart failure type: unspecified Qualified Code(s): I50.9 - Heart failure, unspecified Medications at Discharge Home Medications guanfacine 1 mg tablet 1 tablet PO QPM BLOOD PRESSURE 30 days ##30 05/09/18 escitalopram oxalate 20 mg tablet 20 mg PO DAILY depression 01/29/19 minoxidil 10 mg tablet 20 mg PO DAILY HAIR GROWTH 09/26/19 finasteride 5 mg tablet 5 mg PO QPM 03/02/25 losartan 100 mg tablet 100 mg PO DAILY 03/02/25 nifedipine 30 mg tablet,extended release 24 hr 30 mg PO DAILY 03/02/25 omeprazole 20 mg capsule,delayed release 20 mg PO DAILY 03/02/25 tamsulosin 0.4 mg capsule 0.4 mg PO QHS 03/02/25 apixaban 5 mg tablet (Eliquis) 5 mg PO BID 30 days #60 tabs 03/05/25 aspirin 81 mg chewable tablet 81 mg PO DAILY@0800 30 days #30 tabs 03/05/25 atenolol 100 mg tablet 100 mg PO DAILY 30 days #30 tabs 03/05/25 furosemide 20 mg tablet (Lasix) 20 mg PO DAILY PRN edema #30 tabs 03/05/25 Hospital Course Operations None Procedures EKG, Transthoracic echo and - (Chest x-ray, CTA chest, CT lower extremity, venous Doppler study) Summary of Care Provided Minutes Spent on Discharge: 35 Hospital Course: Patient is a 59-year-old male who presented to [facility] ED on 03/02/2025 with worsening shortness of breath with exertion. Hospital course as noted below. Patient discharged home in stable condition on 03/05. 1. Mild acute HFpEF with hypoxia, improved ??? Not on home oxygen. Presented with progressive shortness of breath with exertion and worsening lower extremity edema. Required up to 3 L nasal cannula during hospitalization. CTA chest showed no PE, did show cardiomegaly with mild pulmonary edema. Found to be in new A-fib on admit. Echo showed EF 70%, mild concentric LV hypertrophy, stage I diastolic dysfunction, severe biatrial dilation, no other abnormalities. Given atrial dilation, suspected patient has been in A-fib for some time and this led to mild progressive volume overload. Treated with IV Lasix while inpatient with improvement. Completed O2 testing on day of discharge and did not require any supplemental oxygen. Given only mild findings on echo, will only prescribe Lasix 20 mg daily as needed on discharge. 2. New onset rate controlled A-fib ??? EKG on admit showed A-fib with rate around 90. Patient notably is on home atenolol which presumably was controlling his rate. Echo findings as noted above. Started on anticoagulation and will continue Eliquis on discharge. Continue atenolol on discharge as well. Chronic medical conditions: ??? Class III obesity: BMI 54 on admit. Encouraged weight loss. Complicated hospital course, care and prognosis. ??? Hypertension: Continue home atenolol, losartan and nifedipine. Prescribed low-dose Lasix as needed on discharge as noted above. ??? GERD: Continue home PPI. ??? BPH with obstructive symptoms: Continue home finasteride and tamsulosin. ??? Depression: Continue home escitalopram. ??? Hair loss: Continue home minoxidil. Total clinical time spent by myself addressing the patient's medical issues, reviewing all the data, and collaborating with patient's care team: 35 minutes. Physical Exam Const alert, oriented x3 and no apparent distress Constitutional Narrative: Pleasant middle-age male, class III obesity, sitting back comfortably in bed, conversing normally, in no acute distress. General Appearance: cooperative and comfortable HEENT normocephalic, head/scalp atraumatic, hearing grossly normal bilaterally, nasal mucous membranes and turbinates normal and moist oral mucous membranes Eyes PERRL, EOMs intact bilaterally and conjunctivae normal Neck full ROM Chest inspection of chest normal Resp normal respiratory effort, normal air movement, no use of accessory muscles and clear to auscultation bilaterally Cardio regular rate, regular rhythm, no murmurs and peripheral pulses 2+ throughout GI normal to inspection, nondistended, normoactive bowel sounds, soft to palpation, non-tender and non- distended Back/Spine normal ROM Extremity normal to inspection and full ROM Extremity Narrative: Trace nonpitting lower extremity edema noted, much improved from admission. (more content not included)...[facility]04-27-2025 Progress note Author Pierce Florian [facility] Note Date/Time March 04, 2025 5:1 4pm [facility] Medical Records Department [address] [place] [address] Progress Note - Hospitalist 03/04/25 1704 MR#: [id number] Acct: [id number] Name: JOSÉ MIGUEL YOUNG . Rep #: [id number] : 1965 59 From: Pierce Florian DO PCP: Dr. Pierce Wells MD Status:AD M IN Location: [place] [address] Reason for Visit Reason for Visit: Diagnoses Other pericardial effusion (noninflammatory) (03/02/25) Heart failure, unspecified (03/02/25) Cardiomegaly (03/02/25) Lymphedema, not elsewhere classified (03/02/25) Cellulitis of abdominal wall (03/02/25) Hyperglycemia, unspecified (03/02/25) Other specified abnormal findings of blood chemistry (03/02/25) Subjective Subjective Patient was seen and examined today, he states his breathing is better, patient was noted to be in atrial fib-he states he has had an irregular heartbeat beforeand his doctor told him to take aspirin. I discussed taking anticoagulants withthe patient and he is not against taking anticoagulants if he has to. Patient is already on atenolol, telemetry shows his heart rate to be mostly in the 70s and 80s. Patient's echocardiogram yesterday showed a normal ejection fraction with biatrial dilatation, there was no comment on the patient's pulmonary arterypressure. Objective Data Objective Data Vital Signs: Vital Signs Temp Pulse Resp BP Pulse Ox O2 Del Method O2 Flow Rate 97.6 F L 76 20 H 128/55 H 93 Room Air 2 03/04/25 15:07 03/04/25 15:07 03/04/25 15:07 03/04/25 15:07 03/04/25 15:07 03/04/25 15:07 03/04/25 09:21 Oxygen Flow Rate (L/min) 2 Oxygen Delivery Method Room Air Weight: 161.7 kg Body Mass Index (BMI) 55.8 Intake & Output: Intake and Output for Last 24 Hours 0403/03/25 03/04/25 23:59 23:59 23:59 Intake Total 730 / 730 480 / 480 Output Total 250 / 250 2590 / 2590 1460 / 1460 Balance -250 / -250 -1860 / -1860 -980 / -980 Lab / Micro Data 03/03/25 04:41 03/04/25 09:35 Labs: Laboratory Results - last 24 hr 03/03/25 21:45: Phosphorus 4.0 03/04/25 09:35: Sodium 138, Potassium 4.0, Chloride 94 L, Carbon Dioxide 33.8 H,Anion Gap 10, BUN 12, Creatinine 1.00, Estim Creat Clear Calc 117.38, Est GFR (MDRD) Non-Af 87, BUN/Creatinine Ratio 11.8, Glucose 160 H, Calcium 9.5 Micro: Microbiology 03/02/25 23:05 Mucosa - Nasopharyngeal Respiratory Panel (PCR) - Final Physical Exam Narrative alert, oriented x3 and no apparent distress Constitutional Narrative: Patient has class III obesity General Appearance: cooperative, well kempt and well developed Orientation / Consciousness: awake, oriented to person, oriented to place and oriented to time HEENT normocephalic, head/scalp atraumatic and moist oral mucous membranes Eyes PERRL, EOMs intact bilaterally and conjunctivae normal Neck supple, no JVD, thyroid normal and no carotid bruits General: trachea midline Resp normal respiratory effort, no retractions, no use of accessory muscles and clearto auscultation bilaterally Auscultation: Negative for rales, rhonchi or wheezes Cardio irregular rate, irregular rhythm, S1 normal heart sound, S2 normal heart sound, no murmurs, no rub and no gallops GI normal to inspection, nondistended, normoactive bowel sounds, soft to palpation,non-tender and non-distended Extremity Extremity Narrative: Patient has generalized edema in the lower legs bilaterally which is nonpitting Skin no rashes or lesions noted General Skin Exam: no breakdown Neuro oriented x3, CN's II-XII intact bilaterally, no focal motor deficits and no sensory deficits noted Sensorium / Orientation: awake and alert Speech: speech normal Psych affect normal Assessment & Plan Assessment/Plan (1) CHF (congestive heart failure): QUALIFIERS: Heart failure type: unspecified Heart failure chronicity: acute Qualified Code(s): I50.9 - Heart failure, unspecified PLAN: Plan 1. Acute congestive heart failure with preserved ejection fraction-continue IV Lasix at this time #2 generalized edema secondary to congestive heart failure-again patient is on IV Lasix, patient is also on minoxidil which can cause edema. #3 essential hypertension-patient is on multiple hypertensive medications, bloodpressure will be monitored and these medications will be adjusted as needed #4 Atrial fibrillation-new onset, according to the patient he does not have a history of atrial fibrillation, I have started him on Eliquis 5 mg twice a day, he is already on a rate limiting agent (atenolol), he was taking a combination of atenolol and chlorthalidone-when he is discharged he will need a prescriptionfor atenolol and Lasix. #5 class III obesity-complicates care, management, recovery, and prognosis #6 chronic depression-patient is on Lexapro Total clinical time spent by myself addressing the patient's medical issues, reviewing all of his data, and collaborating with patient's care team: 35 minutes Charges/Coding Visit Charges Inpatient E&M: 92758 Subs Hosp L2 03/04/25 1714 <Electronically signed by Pierce Florian DO> Cosigner Signature (if applicable): CC: ~ Signed [facility] Work Phone: 1(954) 138-788204-27-2025 Progress note [facility] Medical Records Department [address] [place] [address] Progress Note - Hospitalist 03/04/25 1704 MR#: [id number] Acct: [id number] Name: JOSÉ MIGUEL YOUNG . Rep #: [id number] : 1965 59 From: Pierce Florian DO PCP: Dr. Pierce Wells MD Status:AD M IN Location: [place] [address] Reason for Visit Reason for Visit: Diagnoses Other pericardial effusion (noninflammatory) (03/02/25) Heart failure, unspecified (03/02/25) Cardiomegaly (03/02/25) Lymphedema, not elsewhere classified (03/02/25) Cellulitis of abdominal wall (03/02/25) Hyperglycemia, unspecified (03/02/25) Other specified abnormal findings of blood chemistry (03/02/25) Subjective Subjective Patient was seen and examined today, he states his breathing is better, patient was noted to be in atrial fib-he states he has had an irregular heartbeat beforeand his doctor told him to take aspirin. I discussed taking anticoagulants withthe patient and he is not against taking anticoagulants if he has to. Patient is already on atenolol, telemetry shows his heart rate to be mostly in the 70s and80s. Patient's echocardiogram yesterday showed a normal ejection fraction with biatrial dilatation,there was no comment on the patient's pulmonary arterypressure. Objective Data Objective Data Vital Signs: Vital Signs Temp Pulse Resp BP Pulse Ox O2 Del Method O2 Flow Rate 97.6 F L 76 20 H 128/55 H 93 Room Air 2 03/04/25 15:07 03/04/25 15:07 03/04/25 15:07 03/04/25 15:07 03/04/25 15:07 03/04/25 15:07 03/04/25 09:21 Oxygen Flow Rate (L/min) 2 Oxygen Delivery Method Room Air Weight: 161.7 kg Body Mass Index (BMI) 55.8 Intake & Output: Intake and Output for Last 24 Hours 03/02/25 03/03/25 03/04/25 23:59 23:59 23:59 Intake Total 730 / 730 480 / 480 Output Total 250 / 250 2590 / 2590 1460 / 1460 Balance -250 / -250 -1860 / -1860 -980 / -980 Lab / Micro Data 03/03/25 04:41 03/04/25 09:35 Labs: Laboratory Results - last 24 hr 03/03/25 21:45: Phosphorus 4.0 03/04/25 09:35: Sodium 138, Potassium 4.0, Chloride 94 L, Carbon Dioxide 33.8 H,Anion Gap 10, BUN 12, Creatinine 1.00, Estim Creat Clear Calc 117.38, Est GFR (MDRD) Non-Af 87, BUN/Creatinine Ratio 11.8, Glucose 160 H, Calcium 9.5 Micro: Microbiology 03/02/25 23:05 Mucosa - Nasopharyngeal Respiratory Panel (PCR) - Final Physical Exam Narrative alert, oriented x3 and no apparent distress Constitutional Narrative: Patient has class III obesity General Appearance: cooperative, well kempt and well developed Orientation / Consciousness: awake, oriented to person, oriented to place and oriented to time HEENT normocephalic, head/scalp atraumatic and moist oral mucous membranes Eyes PERRL, EOMs intact bilaterally and conjunctivae normal Neck supple, no JVD, thyroid normal and no carotid bruits General: trachea midline Resp normal respiratory effort, no retractions, no use of accessory muscles and clearto auscultation bilaterally Auscultation: Negative for rales, rhonchi or wheezes Cardio irregular rate, irregular rhythm, S1 normal heart sound, S2 normal heart sound, no murmurs, no rub and no gallops GI normal to inspection, nondistended, normoactive bowel sounds, soft to palpation,non-tender and non-distended Extremity Extremity Narrative: Patient has generalized edema in the lower legs bilaterally which is nonpitting Skin no rashes or lesions noted General Skin Exam: no breakdown Neuro oriented x3, CN's II-XII intact bilaterally, no focal motor deficits and no sensory deficits noted Sensorium / Orientation: awake and alert Speech: speech normal Psych affect normal Assessment & Plan Assessment/Plan (1) CHF (congestive heart failure): QUALIFIERS: Heart failure type: unspecified Heart failure chronicity: acute Qualified Code(s): I50.9 - Heart failure, unspecified PLAN: Plan 1. Acute congestive heart failure with preserved ejection fraction-continue IV Lasix at this time #2 generalized edema secondary to congestive heart failure-again patient is on IV Lasix, patient isalso on minoxidil which can cause edema. #3 essential hypertension-patient is on multiple hypertensive medications, bloodpressure will be monitored and these medications will be adjusted as needed #4 Atrial fibrillation-new onset, according to the patient he does not have a history of atrial fibrillation, I have started him on Eliquis 5 mg twice a day, he is already on a rate limiting agent (atenolol), he was taking a combination of atenolol and chlorthalidone-when he is discharged he will need a prescriptionfor atenolol and Lasix. #5 class III obesity-complicates care, management, recovery, and prognosis #6 chronic depression-patient is on Lexapro Total clinical time spent by myself addressing the patient's medical issues, reviewing all of his data, and collaborating with patient's care team: 35 minutes Charges/Coding Visit Charges Inpatient E&M: 40613 Subs Hosp L2 03/04/25 1714 Cosigner Signature (if applicable): CC: ~ Signed [facility]04-26-2025 Progress note Author Pierce Florian [facility] Note Date/Time March 03, 2025 11: 21am [facility] Medical Records Department [address] [place] [address] Progress Note - Hospitalist 03/03/25 1111 MR#: [id number] Acct: [id number] Name: JOSÉ MIGUEL YOUNG Sr. Rep #: [id number] : 1965 59 From: Pierce Florian DO PCP: Dr. Pierce Wells MD Status:AD M IN Location: [place] [address]- 1 Reason for Visit Reason for Visit: Diagnoses Other pericardial effusion (noninflammatory) (03/02/25) Cardiomegaly (03/02/25) Lymphedema, not elsewhere classified (03/02/25) Cellulitis of abdominal wall (03/02/25) Hyperglycemia, unspecified (03/02/25) Other specified abnormal findings of blood chemistry (03/02/25) Subjective Subjective Patient was seen and examined today, he is resting quietly and does not appear to be in any distress. Objective Data Objective Data Vital Signs: Vital Signs Temp Pulse Resp BP Pulse Ox O2 Del Method O2 Flow Rate 97.6 F L 86 20 H 153/85 H 94 Nasal Cannula 2 03/03/25 09:12 03/03/25 09:12 03/03/25 09:12 03/03/25 09:12 03/03/25 09:12 03/03/25 10:00 03/03/25 10:00 Oxygen Flow Rate (L/min) 2 Oxygen Delivery Method Nasal Cannula Weight: 164.7 kg Body Mass Index (BMI) 56.8 Intake & Output: Intake and Output for Last 24 Hours 03/01/25 03/02/25 03/03/25 23:59 23:59 23:59 Intake Total 50 / 50 Output Total 250 / 250 Balance -250 / -250 50 / 50 Lab / Micro Data 03/03/25 04:41 03/03/25 04:41 Labs: Laboratory Results - last 24 hr 03/02/25 19:53: WBC 5.0, RBC 3.95 L, Hgb 11.6 L, Hct 34.6 L, MCV 87.6, MCH 29.4,MCHC 33.5, RDW Std Deviation 45.5 H, RDW Coeff of Bre 14.3, Plt Count 225, MPV 10.5, Immature Gran % (Auto) 0.400, Neut % (Auto) 66.8, Lymph % (Auto) 21.8, Perry % (Auto) 8.2, Eos % (Auto) 2.2, Baso % (Auto) 0.6, Absolute Neuts (auto) 3.3, Absolute Lymphs (auto) 1.09, Nucleated RBC % 0, ESR 9, D-Dimer Quant (PE/DVT) 0.53 H*, Sodium 140, Potassium 3.3, Chloride 103, Carbon Dioxide 25.3, Anion Gap 12, BUN 18, Creatinine 1.02, Estim Creat Clear Calc 116.54, Est GFR (MDRD) Non-Af 85, BUN/Creatinine Ratio 17.6, Glucose 163 H, Hemoglobin A1c 5.6, Calcium 9.2, Phosphorus 2.9, Magnesium 1.8, C-React Prot Ext Range 7.71 H, NT pro BNP II 1559 H, Vitamin B12 260, TSH 3.740 03/02/25 23:11: Urine Color Yellow, Urine Clarity Clear, Urine pH 6.0, Ur Specific [place] 1.010, Urine Protein Negative, Urine Glucose (UA) Normal, UrineKetones Negative, Urine Occult Blood Negative, Urine Nitrite Negative, Urine Bilirubin Negative, Urine Urobilinogen Normal, Ur Leukocyte Esterase Negative, Urine RBC 0 SEEN, Urine WBC 0 SEEN, Ur Squamous Epith Cells 0 SEEN, Urine Bacteria 0 SEEN, Urine Mucus 0 SEEN 03/03/25 00:00: Serum Folate 5.48 03/03/25 04:41: WBC 4.3 L, RBC 3.93 L, Hgb 11.6 L, Hct 35.1 L, MCV 89.3, MCH 29.5, MCHC 33.0, RDW Std Deviation 47.1 H, RDW Coeff of Bre 14.3, Plt Count 215,MPV 10.3, Immature Gran % (Auto) 0.200, Neut % (Auto) 65.2, Lymph % (Auto) 23.3,Perry % (Auto) 8.5, Eos % (Auto) 2.1, Baso % (Auto) 0.7, Absolute Neuts (auto) 2.8, Absolute Lymphs (auto) 1.01, Nucleated RBC % 0, Sodium 138, Potassium 4.2, Chloride 99, Carbon Dioxide 26.7, Anion Gap 12, BUN 15, Creatinine 1.19, Estim Creat Clear Calc 99.78, Est GFR (MDRD) Non-Af 70, BUN/Creatinine Ratio 12.7, Glucose 117 H, Calcium 9.2, Total Bilirubin 1.47 H, AST 89 H, ALT 36, Alkaline Phosphatase 49, NT pro BNP II 1568 H, Total Protein 7.0, Albumin 3.9, Globulin 3.1, Albumin/Globulin Ratio 1.2, Triglycerides 115, Cholesterol 140, LDL Cholesterol, Calc 88, VLDL Cholesterol 23, HDL Cholesterol 29 L, Cholesterol/HDLRatio 4.83 Micro: Microbiology 03/02/25 23:05 Mucosa - Nasopharyngeal Respiratory Panel (PCR) - Final ABG Data ABG results: ABG 03/02/25 03/03/25 23:21 00:10 Specimen Type ART CANDICE Sample Site L Radial Not entered pH 7.39 Bicarbonate Actual 30.3 H Total CO2 32 Base Excess 5 H O2 Saturation 79 L O2 % 2.0 ABG pCO2 50.5 H ABG pO2 44 L Sherrell Test Positive VBG pH 7.45 H VBG pO2 95 H VBG HCO3 29 H VBG Total CO2 31 VBG O2 Sat (Calc) 98 H VBG Base Excess 5 H POC Mix VBG pCO2 Pt Tmp 42.5 O2 Delivery Device Cannula Not entered Vent Mode Not entered Radiography Diagnostic Testing: Radiology Impression Chest X-Ray 03/02/25 20:29 IMPRESSION: No Acute Findings. Reading Location: [facility] Chest CTA 03/02/25 20:45 IMPRESSION: No CT evidence of pulmonary embolism. Cardiomegaly with a small pericardial effusion. Reading Location: [facility] Lower Extremity CT 03/02/25 22:54 IMPRESSION: Dorsal soft tissue swelling but no abscess or osteomyelitis. Reading Location: [facility] Physical Exam Const alert, oriented x3 and no apparent distress Constitutional Narrative: Patient has class III obesity General Appearance: cooperative, well kempt and well developed Orientation / Consciousness: awake, oriented to person, oriented to place and oriented to time HEENT normocephalic, head/scalp atraumatic and moist oral mucous membranes Eyes PERRL, EOMs intact bilaterally and conjunctivae normal Neck supple, no JVD, thyroid normal and no carotid bruits General: trachea midline Resp normal respiratory effort, no retractions, no use of accessory muscles and clearto auscultation bilaterally Auscultation: Negative for rales, rhonchi or wheezes Cardio regular rate, regular rhythm, S1 normal heart sound, S2 normal heart sound, no murmurs, no rub and no gallops GI normal to inspection, nondistended, normoactive bowel sounds, soft to palpation,non-tender and non-distended Extremity Extremity Narrative: Patient has generalized edema in the lower legs bilaterally which is nonpitting Skin no rashes or lesions noted General Skin Exam: no breakdown Neuro oriented x3, CN's II-XII intact bilaterally, no focal motor deficits and no sensory deficits noted Sensorium / Orientation: awake and alert Speech: speech normal Psych affect normal Assessment & Plan Assessment/Plan (1) CHF (congestive heart failure): QUALIFIERS: Heart failure type: unspecified Heart failure chronicity: acute Qualified Code(s): I50.9 - Heart failure, unspecified PLAN: Plan 1. Acute congestive heart failure with preserved ejection fraction-continue IV Lasix at this time I have changed to Lasix to 20 mg every 8 hours #2 generalized edema secondary to congestive heart failure-again patient is on IV Lasix, patient is also on minoxidil which can cause edema. #3 essential hypertension-patient is on multiple hypertensive medications, bloodpressure will be monitored and these medications will be adjusted as needed #4 chronic depression-patient is on Lexapro #5 class III obesity-complicates care, management, recovery, and prognosis I do not feel the patient has cellulitis of the abdominal wall, I elected to stop his Rocephin Total clinical time spent by myself addressing the patient's medical issues, reviewing all of his data, and collaborating with patient's care team: 35 minutes Charges/Coding Visit Charges Inpatient E&M: 67180 Subs Hosp L2 03/03/25 1121 <Electronically signed by Pierce Florian DO> Cosigner Signature (if applicable): CC: ~ Signed [facility] Work Phone: [phone] 554-642904-26-2025 Progress note [facility] Medical Records Department [address] [place] [address] Progress Note - Hospitalist 03/03/25 1111 MR#: [id number] Acct: [id number] Name: JOSÉ MIGUEL YOUNG Sr. Rep #: [id number] : 1965 59 From: Pierce Florian DO PCP: Dr. Pierce Wells MD Status:AD M IN Location: [place] [address] Reason for Visit Reason for Visit: Diagnoses Other pericardial effusion (noninflammatory) (03/02/25) Cardiomegaly (03/02/25) Lymphedema, not elsewhere classified (03/02/25) Cellulitis of abdominal wall (03/02/25) Hyperglycemia, unspecified (03/02/25) Other specified abnormal findings of blood chemistry (03/02/25) Subjective Subjective Patient was seen and examined today, he is resting quietly and does not appear to be in any distress. Objective Data Objective Data Vital Signs: Vital Signs Temp Pulse Resp BP Pulse Ox O2 Del Method O2 Flow Rate 97.6 F L 86 20 H 153/85 H 94 Nasal Cannula 2 03/03/25 09:12 03/03/25 09:12 03/03/25 09:12 03/03/25 09:12 03/03/25 09:12 03/03/25 10:00 03/03/25 10:00 Oxygen Flow Rate (L/min) 2 Oxygen Delivery Method Nasal Cannula Weight: 164.7 kg Body Mass Index (BMI) 56.8 Intake & Output: Intake and Output for Last 24 Hours 03/01/25 03/02/25 03/03/25 23:59 23:59 23:59 Intake Total 50 / 50 Output Total 250 / 250 Balance -250 / -250 50 / 50 Lab / Micro Data 03/03/25 04:41 03/03/25 04:41 Labs: Laboratory Results - last 24 hr 03/02/25 19:53: WBC 5.0, RBC 3.95 L, Hgb 11.6 L, Hct 34.6 L, MCV 87.6, MCH 29.4,MCHC 33.5, RDW Std Deviation 45.5 H, RDW Coeff of Bre 14.3, Plt Count 225, MPV 10.5, Immature Gran % (Auto) 0.400, Neut% (Auto) 66.8, Lymph % (Auto) 21.8, Perry % (Auto) 8.2, Eos % (Auto) 2.2, Baso % (Auto) 0.6, Absolute Neuts (auto) 3.3, Absolute Lymphs (auto) 1.09, Nucleated RBC % 0, ESR 9, D-Dimer Quant (PE/DVT) 0.53 H*, Sodium 140, Potassium 3.3, Chloride 103, Carbon Dioxide 25.3, Anion Gap 12, BUN 18, Creatinine 1.02, Estim Creat Clear Calc 116.54, Est GFR (MDRD) Non-Af 85, BUN/Creatinine Ratio 17.6, Glucose 163 H, Hemoglobin A1c 5.6, Calcium 9.2, Phosphorus 2.9, Magnesium 1.8, C-React Prot Ext Range 7.71 H, NT pro BNP II 1559 H, Vitamin B12 260, TSH 3.740 03/02/25 23:11: Urine Color Yellow, Urine Clarity Clear, Urine pH 6.0, Ur Specific [place] 1.010, Urine Protein Negative, Urine Glucose (UA) Normal, UrineKetones Negative, Urine Occult Blood Negative, Urine Nitrite Negative, Urine Bilirubin Negative, Urine Urobilinogen Normal, Ur Leukocyte Esterase Negative, Urine RBC 0 SEEN, Urine WBC 0 SEEN, Ur Squamous Epith Cells 0 SEEN, Urine Bacteria 0 SEEN, Urine Mucus 0 SEEN 03/03/25 00:00: Serum Folate 5.48 03/03/25 04:41: WBC 4.3 L, RBC 3.93 L, Hgb 11.6 L, Hct 35.1 L, MCV 89.3, MCH 29.5, MCHC 33.0, RDW Std Deviation 47.1 H, RDW Coeff of Bre 14.3, Plt Count 215,MPV 10.3, Immature Gran % (Auto) 0.200, Neut % (Auto) 65.2, Lymph % (Auto) 23.3,Perry % (Auto) 8.5, Eos % (Auto) 2.1, Baso % (Auto) 0.7, Absolute Neuts (auto) 2.8, Absolute Lymphs (auto) 1.01, Nucleated RBC % 0, Sodium 138, Potassium 4.2, Chloride 99, Carbon Dioxide 26.7, Anion Gap 12, BUN 15, Creatinine 1.19, Estim Creat Clear Calc 99.78, Est GFR (MDRD) Non-Af 70, BUN/Creatinine Ratio 12.7, Glucose 117 H, Calcium 9.2, Total Bilirubin 1.47H, AST 89 H, ALT 36, Alkaline Phosphatase 49, NT pro BNP II 1568 H, Total Protein 7.0, Albumin 3.9,Globulin 3.1, Albumin/Globulin Ratio 1.2, Triglycerides 115, Cholesterol 140, LDL Cholesterol, Calc88, VLDL Cholesterol 23, HDL Cholesterol 29 L, Cholesterol/HDLRatio 4.83 Micro: Microbiology 03/02/25 23:05 Mucosa - Nasopharyngeal Respiratory Panel (PCR) - Final ABG Data ABG results: ABG 03/02/25 03/03/25 23:21 00:10 Specimen Type ART CANDICE Sample Site L Radial Not entered pH 7.39 Bicarbonate Actual 30.3 H Total CO2 32 Base Excess 5 H O2 Saturation 79 L O2 % 2.0 ABG pCO2 50.5 H ABG pO2 44 L Sherrell Test Positive VBG pH 7.45 H VBG pO2 95 H VBG HCO3 29 H VBG Total CO2 31 VBG O2 Sat (Calc) 98 H VBG Base Excess 5 H POC Mix VBG pCO2 Pt Tmp 42.5 O2 Delivery Device Cannula Not entered Vent Mode Not entered Radiography Diagnostic Testing: Radiology Impression Chest X-Ray 03/02/25 20:29 IMPRESSION: No Acute Findings. Reading Location: [facility] Chest CTA 03/02/25 20:45 IMPRESSION: No CT evidence of pulmonary embolism. Cardiomegaly with a small pericardial effusion. Reading Location: [facility] Lower Extremity CT 03/02/25 22:54 IMPRESSION: Dorsal soft tissue swelling but no abscess or osteomyelitis. Reading Location: [facility] Physical Exam Const alert, oriented x3 and no apparent distress Constitutional Narrative: Patient has class III obesity General Appearance: cooperative, well kempt and well developed Orientation / Consciousness: awake, oriented to person, oriented to place and oriented to time HEENT normocephalic, head/scalp atraumatic and moist oral mucous membranes Eyes PERRL, EOMs intact bilaterally and conjunctivae normal Neck supple, no JVD, thyroid normal and no carotid bruits General: trachea midline Resp normal respiratory effort, no retractions, no use of accessory muscles and clearto auscultation bilaterally Auscultation: Negative for rales, rhonchi or wheezes Cardio regular rate, regular rhythm, S1 normal heart sound, S2 normal heart sound, no murmurs, no rub and no gallops GI normal to inspection, nondistended, normoactive bowel sounds, soft to palpation,non-tender and non-distended Extremity Extremity Narrative: Patient has generalized edema in the lower legs bilaterally which is nonpitting Skin no rashes or lesions noted General Skin Exam: no breakdown Neuro oriented x3, CN's II-XII intact bilaterally, no focal motor deficits and no sensory deficits noted Sensorium / Orientation: awake and alert Speech: speech normal Psych affect normal Assessment & Plan Assessment/Plan (1) CHF (congestive heart failure): QUALIFIERS: Heart failure type: unspecified Heart failure chronicity: acute Qualified Code(s): I50.9 - Heart failure, unspecified PLAN: Plan 1. Acute congestive heart failure with preserved ejection fraction-continue IV Lasix at this time Ihave changed to Lasix to 20 mg every 8 hours #2 generalized edema secondary to congestive heart failure-again patient is on IV Lasix, patient isalso on minoxidil which can cause edema. #3 essential hypertension-patient is on multiple hypertensive medications, bloodpressure will be monitored and these medications will be adjusted as needed #4 chronic depression-patient is on Lexapro #5 class III obesity-complicates care, management, recovery, and prognosis I do not feel the patient has cellulitis of the abdominal wall, I elected to stop his Rocephin Total clinical time spent by myself addressing the patient's medical issues, reviewing all of his data, and collaborating with patient's care team: 35 minutes Charges/Coding Visit Charges Inpatient E&M: 59921 Subs Hosp L2 03/03/25 1121 Cosigner Signature (if applicable): CC: ~ Signed [facility]04-26-2025 History and physical note Author Thierno Estrada [facility] Note Date/Time March 03, 2025 6:0 6am [facility] Medical Records Department [address] [place] [address] H&P Exam - Hospitalist 03/02/251 MR#: [id number] Acct: [id number] Name: JOSÉ MIGUEL YOUNG Sr. Rep #: [id number] : 1965 59 From: Thierno Thompson DO PCP: Dr. Pierce Wells MD Status:AD M IN [facility] HPI - General General Date of Admission: 03/02/25 Date of Service: 03/02/25 Chief Complaint: SOB and Wheezing. 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 Mr. Young reports his symptoms began approximately 1 month prior to admission after several close relatives were diagnosed with Influenza A/B. He was subsequently evaluated by his PCP and he was then diagnosed with Influenza -even though he claims he was not formally tested - culminating in him being given a prescription for amoxicillin which he finished a few weeks ago with resolution of his cough, but not his SOB. Unfortunately, over the past ~10 dayshe has continued to have CHINO that has now progressed to SOB at rest with wheezing so he decided to come in for further evaluation and treatment. 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 He admits to redness ofthe skin of his abdomen with intense itching causing him to scratch frequently which hs made it worse. He denies associated fever, chills, nausea, vomiting, diarrhea, constipation, abdominal pain, chest pain, headache, SOB, known personal history of CHF but he does admit to acute worsening of his chronic LE lymphedema. In the ER he was noted to have a CTA of the chest with IV contrast that revealed no evidence of pulmonary embolism but did show Cardiomegaly with Small Pericardial Effusion with a corresponding elevated NT pro-BNP II of 1,559 pg/mL present on admission consistent with suspected new-onset AE of CHF of uncertain type complicated by clinical evidence of Acute Respiratory Insufficiency in addition to laboratory evidence of Hyperglycemia of 163 mg/dL present on admission suspicious for DM-2 and he was then admitted to the PCU forongoing care for a stay that is expected to extend beyond 2 midnights. REPLACED BY [facility] Medical History Shoulder pain HTN (hypertension) Home Medications ?Medication ?Instructions ?Recorded ?Last Taken ?Type aspirin 325 mg tablet 325 mg PO DAILY@0800 HEART H EALTH 11/19/13 03/02/25 History atenolol 100 mg-chlorthalidone 25 1 tab PO DAILY BLOOD PRESSURE 11/19/13 03/02/25 History mg tablet guanfacine 1 mg tablet 1 tablet PO QPM BLOOD PRESSU RE 30 05/09/18 03/01/25 History days ##30 escitalopram oxalate 20 mg tablet 20 mg PO DAILY depre ssion 01/29/19 03/02/25 History minoxidil 10 mg tablet 20 mg PO DAILY HAIR GROWTH 1 11/26/18 03/02/25 History finasteride 5 mg tablet 5 mg PO QPM 03/02/25 5 History ibuprofen 800 mg tablet 800 mg PO BID PRN PRN fever or pain 03/02/25 03/01/25 History losartan 100 mg tablet 100 mg PO DAILY 03/02/25 History nifedipine 30 mg tablet,extended 30 mg PO DAILY 03/02/25 History release 24 hr omeprazole 20 mg capsule,delayed 20 mg PO DAILY 03/02/25 History release tamsulosin 0.4 mg capsule 0.4 mg PO QHS 03/02/2503/01 History Allergy/AdvReac Type Severity Reaction Status Date / Time No Known Allergies Allergy Verified 03/02/25 19:10 Social History Smoking Status: Never smoker alcohol intake: never ROS ROS Narrative Review of Systems: Constitutional: Patient denies fever or chills. Eyes: Patient denies changes in vision or discharge from eyes. ENT: Patient denies runny nose, sore throat or ear pain. Resp: Patient admits to CHINO that progressed to SOB at rest with wheezing but he denies cough. CV: Patient denies chest pain, palpitations, heart racing or LE edema. GI: Patient denies abdominal pain, nausea, vomiting, diarrhea or constipation. : Patient denies dysuria, hematuria or urinary frequency. MSK: Patient denies arthralgias or myalgias. Skin: Patient admits to redness on his abdomen but he denies wounds or jaundice. Psych: Patient denies symptoms of uncontrolled depression or anxiety. Neuro: Patient denies headache, paresthesias or focal neurologic deficits. Allergy: Patient denies lip swelling, tongue swelling or urticaria. Hematology: Patient denies easy bleeding or easy bruisability. Endocrinology: Patient denies polyuria, polydipsia, polyphagia or heat/cold intolerance. 14 point ROS otherwise negative except for positives noted above in HPI. Vital Signs Vital Signs Vital Signs: 03/02/25 19:10 03/02/25 19:10 03/02/25 20:01 Temperature 97 F L Temperature Source Temporal Pulse Rate 87 Respiratory Rate 15 Respiratory Effort Normal Non-Labored Respiratory Pattern Blood Pressure 164/88 H Blood Pressure Mean 113 Pulse Ox 85 96 Oxygen Delivery Method Room Air Nasal Cannula Nasal Cannula Oxygen Flow Rate (L/min) 2 2 03/02/25 20:22 03/02/25 20:22 03/02/25 20:35 Temperature 97.8 F Temperature Source Oral Pulse Rate 77 Respiratory Rate 17 Respiratory Effort Respiratory Pattern Blood Pressure 114/76 Blood Pressure Mean 88 Pulse Ox 94 Oxygen Delivery Method Nasal Cannula Nasal Cannula Nasal Cannula Oxygen Flow Rate (L/min) 2 2 03/02/25 21:07 03/02/25 21:09 03/02/25 21:45 Temperature 97.8 F Temperature Source Oral Pulse Rate 82 90 93 Respiratory Rate 22 H 18 18 Respiratory Effort Respiratory Pattern Tachypnea Blood Pressure 121/79 H 130/88 H Blood Pressure Mean 93 102 Pulse Ox 95 94 Oxygen Delivery Method Nasal Cannula Nasal Cannula Oxygen Flow Rate (L/min) 2 2 Weight Weight: 363 lb 12.203 oz Body Mass Index (BMI) 56.9 Physical Exam Const alert, oriented x3 and no apparent distress Constitutional Narrative: Morbidly obese and dyspneic with nontoxic appearance. General Appearance: cooperative HEENT normocephalic, head/scalp atraumatic, hearing grossly normal bilaterally and moist oral mucous membranes Eyes PERRL and EOMs intact bilaterally Neck no lymphadenopathy and supple Resp Resp Narrative: Diminished breath sounds throughout with faint scattered expiratory wheezing. Auscultation: wheezes Cardio regular rate and regular rhythm GI normal to inspection, nondistended, normoactive bowel sounds, soft to palpation,non-tender and non-distended GI Narrative: Redness of the skin of the abdomen with mild TTP noted. Extremity Extremity Narrative: Chronic LE lymphedema. Skin Skin Narrative: Redness of the skin of the abdomen with mild TTP noted. Neuro oriented x3, CN's II-XII intact bilaterally, moves all extremities and no focal motor deficits Sensorium / Orientation: awake, alert, oriented to person, oriented to place andoriented to time Speech: speech normal Psych affect normal Results Medical Records Data Attestation: I reviewed the patient's medical records Lab / Micro Data Attestation: I reviewed the patient's lab results. 03/02/25 19:53 03/02/25 19:53 Labs: Laboratory Results - last 24 hr 03/02/25 19:53: WBC 5.0, RBC 3.95 L, Hgb 11.6 L, Hct 34.6 L, MCV 87.6, MCH 29.4,MCHC 33.5, RDW Std Deviation 45.5 H, RDW Coeff of Bre 14.3, Plt Count 225, MPV 10.5, Immature Gran % (Auto) 0.400, Neut % (Auto) 66.8, Lymph % (Auto) 21.8, Perry % (Auto) 8.2, Eos % (Auto) 2.2, Baso % (Auto) 0.6, Absolute Neuts (auto) 3.3, Absolute Lymphs (auto) 1.09, Nucleated RBC % 0, Sodium 140, Potassium 3.3, Chloride 103, Carbon Dioxide 25.3, Anion Gap 12, BUN 18, Creatinine 1.02, Estim Creat Clear Calc 116.54, Est GFR (MDRD) Non-Af 85, BUN/Creatinine Ratio 17.6, Glucose 163 H, Calcium 9.2, NT pro BNP II 1559 H Imaging Radiology Impression Chest X-Ray 03/02/25 20:29 IMPRESSION: No Acute Findings. Reading Location: [facility] Chest CTA 03/02/25 20:45 IMPRESSION: No CT evidence of pulmonary embolism. Cardiomegaly with a small pericardial effusion. Reading Location: [facility] Assessment & Plan Assessment/Plan (1) CHF (congestive heart failure): QUALIFIERS: Heart failure chronicity: acute Heart failure type: unspecified Qualified Code(s): I50.9 - Heart failure, unspecified (2) Cardiomegaly: (3) Pericardial effusion: (4) Morbid obesity: (5) Lymphedema: (6) Obesity hypoventilation syndrome: (7) Respiratory insufficiency: (8) D-dimer, elevated: (9) Abdominal wall cellulitis: (10) Hyperglycemia: PLAN: Plan 1. Elevated NT pro-BNP II of 1,559 pg/mL present on admission consistent with suspected new-onset AE of CHF of uncertain type - Admit to PCU. Continue IV furosemide begun in the ER. Check daily NT pro-BNP II daily to follow trend. Strict I's & O's. Check echocardiogram to evaluate LVEF. Serialize troponin. Give acetaminophen prn pain or fever. 2. CTA of the chest with IV contrast that revealed no evidence of pulmonary embolism but did show Cardiomegaly with Small Pericardial Effusion complicating #1 - Echocardiogram pending for #1. Check viral respiratory panel in case of persistent viral infection adversely impacting his heart. 3. Acute Respiratory Insufficiency with intermittent mild wheezing due to #1 & #2 - Wean supplemental oxygen as tolerated. Give nebulizers prn for wheezing. 4. Super-morbid obesity; with BMI of 57 this admission plus OHS with Chronic LELymphedema adding to the burden of disease outlined from #1 - #3 - Weight loss will be recommended. Check TSH. Nocturnal CPAP will be offered. This complicates his case and may hamper recovery. 5. Abdominal Wall Cellulitis adding to the medical complexity of #1 - #4 - Start empiric IV ceftriaxone and monitor for improvement. 6. Elevated d-dimer of 0.53 present on admission - Check LE Doppler in AM to evaluate for DVT with CTA of chest negative for PE. 7. Hyperglycemia of 163 mg/dL present on admission suspicious for DM-2 - Check HgbA1c to confirm suspicion. 8. History of exertional dyspnea; s/p echocardiogram; with LVEF ~65% and stage-I diastolic dysfunction (2019) found during admission here - Noted with repeat echocardiogram pending at this time. 9. Essential hypertension; on atenolol-hydrochlorothiazide, nifedipine and guanfacine - Maintain home regimen plus give prn hydralazine IV for systolic blood pressure > 160 mmHg. 10. History of muscle spasms; on orphenadrine - Resume current treatment. 11. Depression with anxiety; on escitalopram and clonazepam - Continue home regimen. 12. BPH; on finasteride and tamsulosin - Maintain present therapy. 13. 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 14. GERD; on omeprazole - Resume PPI as before. 15. OA; with shoulder pain - Give prn acetaminophen as outlined in #1. 16. DVT prophylaxis - Enoxaparin 40 mg sq BID. Total time: Approximately (but not less than) 75 minutes. Charges/Coding Visit Charges Inpatient E&M: 19512 Init Hosp L3 03/03/25 0606 <Electronically signed by Thierno Campos DO> Cosigner Signature (if applicable): CC: Dr. Thierno Campos DO; Dr. Pierce Wells MD~ Signed [facility] Work Phone: 1(714) 916-157404-26-2025 History and physical note [facility] Medical Records Department [address] [place] [address] H&P Exam - Hospitalist 03/02/25 2201 MR#: [id number] Acct: [id number] Name: JOSÉ MIGUEL YOUNG . Rep #: [id number] : 1965 59 From: Thierno Thompson DO PCP: Dr. Pierce Wells MD Status:AD M IN [id number] - General General Date of Admission: 03/02/25 Date of Service: 03/02/25 Chief Complaint: SOB and Wheezing. HPI Narrative JOSÉ MIGUEL YOUNG, is a 59 M with a past medical history of essential hypertension; on atenolol-hydrochlorothiazide, nifedipine and guanfacine, [id number]; with BMI of 57 this admission, history of exertional dyspnea; s/p echocardiogram; with LVEF ~65% and stage-I diastolic dysfunction (2019) found during admission here, chronic lower extremity lymphedema, history of muscle spasms; on orphenadrine, depression with anxiety; on escitalopram and clonazepam, BPH; on finasteride and tamsulosin, history of male-pattern baldness; on minoxidil, GERD; on omeprazole and OA; with shoulder pain who presents to [facility] ER complaining of SOB and wheezing. Mr. Young reports his symptoms began approximately 1 month prior to admission after several close relatives were diagnosed with Influenza A/B. He was subsequently evaluated by his PCP and he wasthen diagnosed with Influenza - even though he claims he was not formally tested - culminating in him being given a prescription for amoxicillin which he finished a few weeks ago with resolution of his cough, but not his SOB. Unfortunately, over the past ~10 dayshe has continued to have CHINO that hasnow progressed to SOB at rest with wheezing so he decided to come in for further evaluation and treatment. 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 He admits to redness ofthe skin of his abdomen with intense itching causing him to scratch frequently which hs made it worse. He denies associated fever, chills, nausea, vomiting, diarrhea, constipation, abdominal pain, chest pain, headache, SOB, known personal history of CHF but he does admit to acute worsening of his chronic LE lymphedema. In the ER he was noted to have a CTA of the chest with IV contrast that revealed no evidence of pulmonary embolism but did show Cardiomegaly with Small Pericardial Effusion with a corresponding elevated NT pro-BNP II of 1,559 pg/mL present on admission consistent with suspected new-onset AE of CHF of uncertain type complicated by clinical evidence of Acute Respiratory Insufficiency in addition to laboratory evidence of Hyperglycemia of 163 mg/dL present on admission suspicious forDM-2 and he was then admitted to the PCU forongoing care for a stay that is expected to extend beyond 2 midnights. REPLACED BY [facility] Medical History Shoulder pain HTN (hypertension) Home Medications ?Medication ?Instructions ?Recorded ?Last Taken ?Type aspirin 325 mg tablet 325 mg PO DAILY@0800 HEART H EALTH 11/19/13 03/02/25 History atenolol 100 mg-chlorthalidone 25 1 tab PO DAILY BLOOD PRESSURE 11/19/13 03/02/25 History mg tablet guanfacine 1 mg tablet 1 tablet PO QPM BLOOD PRESSU RE 30 05/09/18 03/01/25 History days ##30 escitalopram oxalate 20 mg tablet 20 mg PO DAILY depre ssion 01/29/19 03/02/25 History minoxidil 10 mg tablet 20 mg PO DAILY HAIR GROWTH 1 11/26/18 03/02/25 History finasteride 5 mg tablet 5 mg PO QPM 03/02/25 5 History ibuprofen 800 mg tablet 800 mg PO BID PRN PRN fever or pain 03/02/25 03/01/25 History losartan 100 mg tablet 100 mg PO DAILY 03/02/25 History nifedipine 30 mg tablet,extended 30 mg PO DAILY 03/02/25 History release 24 hr omeprazole 20 mg capsule,delayed 20 mg PO DAILY 03/02/25 History release tamsulosin 0.4 mg capsule 0.4 mg PO QHS 03/02/2503/01 History Allergy/AdvReac Type Severity Reaction Status Date / Time No Known Allergies Allergy Verified 03/02/25 19:10 Social History Smoking Status: Never smoker alcohol intake: never ROS ROS Narrative Review of Systems: Constitutional: Patient denies fever or chills. Eyes: Patient denies changes in vision or discharge from eyes. ENT: Patient denies runny nose, sore throat or ear pain. Resp: Patient admits to CHINO that progressed to SOB at rest with wheezing but he denies cough. CV: Patient denies chest pain, palpitations, heart racing or LE edema. GI: Patient denies abdominal pain, nausea, vomiting, diarrhea or constipation. : Patient denies dysuria, hematuria or urinary frequency. MSK: Patient denies arthralgias or myalgias. Skin: Patient admits to redness on his abdomen but he denies wounds or jaundice. Psych: Patient denies symptoms of uncontrolled depression or anxiety. Neuro: Patient denies headache, paresthesias or focal neurologic deficits. Allergy: Patient denies lip swelling, tongue swelling or urticaria. Hematology: Patient denies easy bleeding or easy bruisability. Endocrinology: Patient denies polyuria, polydipsia, polyphagia or heat/cold intolerance. 14 point ROS otherwise negative except for positives noted above in HPI. Vital Signs Vital Signs Vital Signs: 03/02/25 19:10 03/02/25 19:10 03/02/25 20:01 Temperature 97 F L Temperature Source Temporal Pulse Rate 87 Respiratory Rate 15 Respiratory Effort Normal Non-Labored Respiratory Pattern Blood Pressure 164/88 H Blood Pressure Mean 113 Pulse Ox 85 96 Oxygen Delivery Method Room Air Nasal Cannula Nasal Cannula Oxygen Flow Rate (L/min) 2 2 03/02/25 20:22 03/02/25 20:22 03/02/25 20:35 Temperature 97.8 F Temperature Source Oral Pulse Rate 77 Respiratory Rate 17 Respiratory Effort Respiratory Pattern Blood Pressure 114/76 Blood Pressure Mean 88 Pulse Ox 94 Oxygen Delivery Method Nasal Cannula Nasal Cannula Nasal Cannula Oxygen Flow Rate (L/min) 2 2 03/02/25 21:07 03/02/25 21:09 03/02/25 21:45 Temperature 97.8 F Temperature Source Oral Pulse Rate 82 90 93 Respiratory Rate 22 H 18 18 Respiratory Effort Respiratory Pattern Tachypnea Blood Pressure 121/79 H 130/88 H Blood Pressure Mean 93 102 Pulse Ox 95 94 Oxygen Delivery Method Nasal Cannula Nasal Cannula Oxygen Flow Rate (L/min) 2 2 Weight Weight: 363 lb 12.203 oz Body Mass Index (BMI) 56.9 Physical Exam Const alert, oriented x3 and no apparent distress Constitutional Narrative: Morbidly obese and dyspneic with nontoxic appearance. General Appearance: cooperative HEENT normocephalic, head/scalp atraumatic, hearing grossly normal bilaterally and moist oral mucous membranes Eyes PERRL and EOMs intact bilaterally Neck no lymphadenopathy and supple Resp Resp Narrative: Diminished breath sounds throughout with faint scattered expiratory wheezing. Auscultation: wheezes Cardio regular rate and regular rhythm GI normal to inspection, nondistended, normoactive bowel sounds, soft to palpation,non-tender and non-distended GI Narrative: Redness of the skin of the abdomen with mild TTP noted. Extremity Extremity Narrative: Chronic LE lymphedema. Skin Skin Narrative: Redness of the skin of the abdomen with mild TTP noted. Neuro oriented x3, CN's II-XII intact bilaterally, moves all extremities and no focal motor deficits Sensorium / Orientation: awake, alert, oriented to person, oriented to place andoriented to time Speech: speech normal Psych affect normal Results Medical Records Data Attestation: I reviewed the patient's medical records Lab / Micro Data Attestation: I reviewed the patient's lab results. 03/02/25 19:53 03/02/25 19:53 Labs: Laboratory Results - last 24 hr 03/02/25 19:53: WBC 5.0, RBC 3.95 L, Hgb 11.6 L, Hct 34.6 L, MCV 87.6, MCH 29.4,MCHC 33.5, RDW Std Deviation 45.5 H, RDW Coeff of Bre 14.3, Plt Count 225, MPV 10.5, Immature Gran % (Auto) 0.400, Neut% (Auto) 66.8, Lymph % (Auto) 21.8, Perry % (Auto) 8.2, Eos % (Auto) 2.2, Baso % (Auto) 0.6, Absolute Neuts (auto) 3.3, Absolute Lymphs (auto) 1.09, Nucleated RBC % 0, Sodium 140, Potassium 3.3, Chloride 103, Carbon Dioxide 25.3, Anion Gap 12, BUN 18, Creatinine 1.02, Estim Creat Clear Calc 116.54, Est GFR (MDRD) Non-Af 85, BUN/Creatinine Ratio 17.6, Glucose 163 H, Calcium 9.2, NT pro BNP II 1559 H Imaging Radiology Impression Chest X-Ray 03/02/25 20:29 IMPRESSION: No Acute Findings. Reading Location: [id number] Chest CTA 03/02/25 20:45 IMPRESSION: No CT evidence of pulmonary embolism. Cardiomegaly with a small pericardial effusion. Reading Location: [facility] Assessment & Plan Assessment/Plan (1) CHF (congestive heart failure): QUALIFIERS: Heart failure chronicity: acute Heart failure type: unspecified Qualified Code(s): I50.9 - Heart failure, unspecified (2) Cardiomegaly: (3) Pericardial effusion: (4) Morbid obesity: (5) Lymphedema: (6) Obesity hypoventilation syndrome: (7) Respiratory insufficiency: (8) D-dimer, elevated: (9) Abdominal wall cellulitis: (10) Hyperglycemia: PLAN: Plan 1. Elevated NT pro-BNP II of 1,559 pg/mL present on admission consistent with suspected new-onset AE of CHF of uncertain type - Admit to PCU. Continue IV furosemide begun in the ER. Check daily NT pro-BNP II daily to follow trend. Strict I's & O's. Check echocardiogram to evaluate LVEF. Serialize troponin. Give acetaminophen prn pain or fever. 2. CTA of the chest with IV contrast that revealed no evidence of pulmonary embolism but did show Cardiomegaly with Small Pericardial Effusion complicating #1 - Echocardiogram pending for #1. Check viral respiratory panel in case of persistent viral infection adversely impacting his heart. 3. Acute Respiratory Insufficiency with intermittent mild wheezing due to #1 & #2 - Wean supplemental oxygen as tolerated. Give nebulizers prn for wheezing. 4. Super-morbid obesity; with BMI of 57 this admission plus OHS with Chronic LELymphedema adding tothe burden of disease outlined from #1 - #3 - Weight loss will be recommended. Check TSH. NocturnalCPAP will be offered. This complicates his case and may hamper recovery. 5. Abdominal Wall Cellulitis adding to the medical complexity of #1 - #4 - Start empiric IV ceftriaxone and monitor for improvement. 6. Elevated d-dimer of 0.53 present on admission - Check LE Doppler in AM to evaluate for DVT with CTA of chest negative for PE. 7. Hyperglycemia of 163 mg/dL present on admission suspicious for DM-2 - Check HgbA1c to confirm suspicion. 8. History of exertional dyspnea; s/p echocardiogram; with LVEF ~65% and stage-I diastolic dysfunction (2019) found during admission here - Noted with repeat echocardiogram pending at this time. 9. Essential hypertension; on atenolol-hydrochlorothiazide, nifedipine and guanfacine - Maintain home regimen plus give prn hydralazine IV for systolic blood pressure > 160 mmHg. 10. History of muscle spasms; on orphenadrine - Resume current treatment. 11. Depression with anxiety; on escitalopram and clonazepam - Continue home regimen. 12. BPH; on finasteride and tamsulosin - Maintain present therapy. 13. 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 14. GERD; on omeprazole - Resume PPI as before. 15. OA; with shoulder pain - Give prn acetaminophen as outlined in #1. 16. DVT prophylaxis - Enoxaparin 40 mg sq BID. Total time: Approximately (but not less than) 75 minutes. Charges/Coding Visit Charges Inpatient E&M: 57571 Init Hosp 03/03/25 0606 Cosigner Signature (if applicable): CC: Dr. Thierno Campos DO; Dr. Pierce Wells MD~ Signed [facility]04-26-2025 Evaluation note* Diagnosis Onset Date Resolution Status Admit Date Abdominal wall cellulitis acute March 02, 2025 10:46pm Cardiomegaly acute March 02, 2025 10:46pm CHF (congestive heart failure) acute March 02, 2025 10:46pm D-dimer, elevated acute February 072024 10:46pm Hyperglycemia acute March 02, 2025 10:46pm Hypoxia acute March 02 10:46pm Lymphedema acute March 02 10:46pm Obesity hypoventilation syndrome acu te March 02, 2025 10:46pm Pericardial effusion acute Apri 2024 10:46pm Respiratory insufficiency acute March 02, 2025 10:46pm Morbid obesity chronic February 10:46pm [facility] Work Phone: 1([phone]) 177-987704-26-2025 Evaluation note* Diagnosis Onset Date Resolution Status Admit Date Obesity hypoventilation syndrome acu te March 02, 2025 10:46pm Abdominal wall cellulitis resolved March 02, 2025 10:46pm Cardiomegaly resolved March 02, 2025 10:46pm CHF (congestive heart failure) resol staci March 02, 2025 10:46pm D-dimer, elevated resolved February 072024 10:46pm Hyperglycemia resolved March 02, 2025 10:46pm Hypoxia resolved March 02 10:46pm Pericardial effusion resolved Apr l 2024 10:46pm Respiratory insufficiency resolved March 02, 2025 10:46pm Lymphedema inactive March 02 10:46pm Morbid obesity inactive February 10:46pm Dyspnea acute March 18, 2025 9:17pm Hypertensive urgency acute March 18, 2025 9:17pm Morbid obesity with BMI of 50.0-59.9, adult acute March 18, 2025 9:17pm Obesity hypoventilation syndrome acu te March 18, 2025 9:17pm [facility] Work Phone: [phone] 582-519204-26-2025 Evaluation note* Diagnosis Onset Date Resolution Status Admit Date Obesity hypoventilation syndrome acu te March 02, 2025 10:46pm Abdominal wall cellulitis resolved March 02, 2025 10:46pm Cardiomegaly resolved March 02, 2025 10:46pm CHF (congestive heart failure) resol staci March 02, 2025 10:46pm D-dimer, elevated resolved February 072024 10:46pm Hyperglycemia resolved March 02, 2025 10:46pm Hypoxia resolved March 02 10:46pm Pericardial effusion resolved 2024 10:46pm Respiratory insufficiency resolved March 02, 2025 10:46pm Lymphedema inactive March 02 10:46pm Morbid obesity inactive February 10:46pm (HFpEF) heart failure with preserved ejection fraction acute March 19, 2025 2:17pm D-dimer, elevated acute March 2:17pm Hypertensive urgency acute March 19, 2025 2:17pm Morbid obesity with BMI of 50.0-59.9, adult acute March 19, 2025 2:17pm Obesity hypoventilation syndrome acu te March 19, 2025 2:17pm Respiratory insufficiency acute March 19, 2025 2:17pm Diastolic CHF, 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 on chronic 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 March 19, 2025 2:17pm [facility] Work Phone: 1([phone] 316-897904-26-2025 Evaluation note* Diagnosis Onset Date Resolution Status Admit Date Obesity hypoventilation syndrome acu te March 02, 2025 10:46pm Abdominal wall cellulitis resolved March 02, 2025 10:46pm Cardiomegaly resolved March 02, 2025 10:46pm CHF (congestive heart failure) resol staci March 02, 2025 10:46pm D-dimer, elevated resolved February 072024 10:46pm Hyperglycemia resolved March 02, 2025 10:46pm Hypoxia resolved March 02 10:46pm Pericardial effusion resolved Apri l 2024 10:46pm Respiratory insufficiency resolved March 02, 2025 10:46pm Lymphedema inactive March 02 10:46pm Morbid obesity inactive February 10:46pm (HFpEF) heart failure with preserved ejection fraction acute March 19, 2025 2:17pm D-dimer, elevated acute March 2:17pm Morbid obesity with BMI of 50.0-59.9, adult acute March 19, 2025 2:17pm Obesity hypoventilation syndrome acu te March 19, 2025 2:17pm Diastolic CHF, acute on chronic reso lved March 19, 2025 2:17pm Hypertensive urgency resolved March 19, 2025 2:17pm Respiratory insufficiency resolved March 19, 2025 2:17pm (HFpEF) heart failure with preserved ejection fraction acute May 09, 2025 3:40pm Atrial fibrillation acute May 09, 2025 3:40pm HTN (hypertension) chronic May 092024 3:40pm [facility] Work Phone: 1([phone]) 251-668504-26-2025 Evaluation note* Diagnosis Onset Date Resolution Status Admit Date Obesity hypoventilation syndrome acu te March 02, 2025 10:46pm Abdominal wall cellulitis resolved March 02, 2025 10:46pm Cardiomegaly resolved March 02, 2025 10:46pm CHF (congestive heart failure) resol staci March 02, 2025 10:46pm D-dimer, elevated resolved February 072024 10:46pm Hyperglycemia resolved March 02, 2025 10:46pm Hypoxia resolved March 02 10:46pm Pericardial effusion resolved Apri l 2024 10:46pm Respiratory insufficiency resolved March 02, 2025 10:46pm Lymphedema inactive March 02 10:46pm Morbid obesity inactive February 10:46pm (HFpEF) heart failure with preserved ejection fraction acute March 19, 2025 2:17pm D-dimer, elevated acute March h2024 2:17pm Morbid obesity with BMI of 50.0-59.9, adult acute March 19, 2025 2:17pm Obesity hypoventilation syndrome acu te March 19, 2025 2:17pm Diastolic CHF, acute on chronic reso lved March 19, 2025 2:17pm Hypertensive urgency resolved March 19, 2025 2:17pm Respiratory insufficiency resolved March 19, 2025 2:17pm (HFpEF) heart failure with preserved ejection fraction acute May 09, 2025 3:40pm Atrial fibrillation acute May 09, 2025 3:40pm HTN (hypertension) chronic May 092024 3:40pm Atrial fibrillation acute May 16, 2025 10:59am [facility] Work Phone: 1([phone]) 539-857804-26-2025 Evaluation note* Diagnosis Onset Date Resolution Status Admit Date Obesity hypoventilation syndrome acu te March 02, 2025 10:46pm Abdominal wall cellulitis resolved March 02, 2025 10:46pm Cardiomegaly resolved March 02, 2025 10:46pm CHF (congestive heart failure) resol staci March 02, 2025 10:46pm D-dimer, elevated resolved February 072024 10:46pm Hyperglycemia resolved March 02, 2025 10:46pm Hypoxia resolved March 02 10:46pm Pericardial effusion resolved Apr2024 10:46pm Respiratory insufficiency resolved March 02, 2025 10:46pm Lymphedema inactive March 02 10:46pm Morbid obesity inactive February 10:46pm D-dimer, elevated acute March h2024 2:17pm Morbid obesity with BMI of 50.0-59.9, adult acute March 19, 2025 2:17pm Obesity hypoventilation syndrome acu te March 19, 2025 2:17pm (HFpEF) heart failure with preserved ejection fraction chronic March 19, 2025 2:17pm Diastolic CHF, acute on chronic reso lved March 19, 2025 2:17pm Hypertensive urgency resolved March 19, 2025 2:17pm Respiratory insufficiency resolved March 19, 2025 2:17pm (HFpEF) heart failure with preserved ejection fraction chronic May 09, 2025 3:40pm Atrial fibrillation chronic May 09, 2025 3:40pm HTN (hypertension) chronic May 092024 3:40pm Atrial fibrillation chronic May 16, 2025 10:59am Dyspnea acute June 25, 12:53pm Morbid obesity with BMI of 50.0-59.9, adult acute June 25 12:53pm (HFpEF) heart failure with preserved ejection fraction chronic Augu st 2024 12:53pm Atrial fibrillation chronic Augus t 2024 12:53pm HTN (hypertension) chronic June 25, 2025 12:53pm [facility] Work Phone: 1([phone]) 422-640704-26-2025 Radiology Diagnostic study note [facility] Imaging Services [address] [place] [address] Extremity Lower WITH Contrast MR#: [id number] Acct: [id number] Name: JOSÉ MIGUEL YOUNG . Rep #: [id number] : 1965 M 59 From: Oliver Garza MD PCP: Dr. Pierce Wells MD Status: AD M IN Study:Extremity Lower WITH Contrast Date of E xam: 03/02/25 Exam# [id number] Ordering Dr: Tyron Valiente MD PROCEDURE: EXTREMITY LOWER WITH CONTRAST 03/02/2025 REASON FOR EXAM: ULCER TECHNIQUE: Axial CT images of the left foot obtained with intravenous contrast. Coronal andSagittal reconstruction series were provided. One or more dose reduction techniques were used (e.g., Automated exposure control, adjustment of the mA and/or kV according to patient size, use of iterative reconstruction technique). FINDINGS: Bones: No acute fracture or dislocation. No bony destruction to suggest osteomyelitis. Small plantar and posterior calcaneal enthesophytes. Joints: Normal alignment of the joints in the foot. Soft Tissues: Dorsal soft tissue swelling. No loculated fluid collection to suggest abscess. CT/Extremity Lower WITH Contrast IMPRESSION: Dorsal soft tissue swelling but no abscess or osteomyelitis. Reading Location: [id number] CC: Dr. Tyron Valiente MD; Dr. Pierce Wells MD ~ Prn Physical Therapist: Signed [facility]04-26-2025 Discharge summary Author Tyron Valiente [facility] Note Date/Time March 02, 2025 10: 04pm [facility] Medical Records Department [address] [place] [address] Emergency Department Summary 03/02/25 MR#: [id number] Acct: [id number] Name: JOSÉ MIGUEL YOUNG . Rep #: [id number] : 1965 59 From: Tyron Valiente MD PCP: Dr. Pierce Wells MD Status:RE G ER Location: ED HPI History of Present Illness Chief Complaint: Shortness of Breath Narrative Narrative: 59-year-old male past medical history of hypertension presents with shortness ofbreath that has had for quite some time. He relates history that a month or longer ago he had relatives that had influenza A and 1 had influenza B. He wentand saw his primary care provider and was told that he had influenza as well although he was never tested. He continued to have shortness of breath. He denies any weight gain or leg swelling. 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 He does not wear oxygen at home. He states that he was not improving so he had been prescribed amoxicillin and finished that a few weeks ago. He got rid of the cough a few weeks ago as well. Over the last week and a half he has had increasing shortness of breath and dyspnea on exertion. He denies any chest pain. He states he feels short of breath and wheezy. No history of congestive heart failure. [facility] Medical History Shoulder pain HTN (hypertension) Home Medications ?Medication ?Instructions ?Recorded ?Last Taken ?Type aspirin 325 mg tablet 325 mg PO DAILY@0800 HEART H EALTH 11/19/13 1 Day Ago History ~03/11/20 atenolol 100 mg-chlorthalidone 25 1 tab PO DAILY BLOOD PRESSURE 11/19/13 1 Day Ago History mg tablet ~03/11/20 potassium chloride 10 mEq 10 meq PO DAILY supplement 0 01/13/15 1 Day Ago History tablet,extended release(part/cryst) ~0 03/11/20 guanfacine 1 mg tablet 1 tab PO DAILY BLOOD PRESSUR E 30 05/09/18 1 Day Ago History days ##30 ~03/11/20 clonazepam 0.5 mg tablet 0.5 mg PO QHS anxiety 1 Day Ago History ~03/11/20 escitalopram oxalate 20 mg tablet 20 mg PO DAILY depre ssion 01/29/19 1 Day Ago History ~03/11/20 minoxidil 10 mg tablet 20 mg PO DAILY HAIR GROWTH 1 11/26/18 1 Day Ago History ~03/11/20 orphenadrine citrate 100 mg 100 mg PO BID PRN Muscle S pasm #14 11/30/19 1 Day Ago Rx tablet,extended release tabs ~03/11/20 Allergy/AdvReac Type Severity Reaction Status Date / Time No Known Allergies Allergy Verified 03/02/25 19:10 Social History Smoking Status: Never smoker alcohol intake: never ROS ROS ED ROS Narrative Constitutional: No fever, no chills. HEENT: No sore throat. No neck pain. Cardiovascular: No chest pain. No palpitations. No pedal edema. Respiratory: No cough, positive dyspnea on exertion and shortness of breath. Abdominal: No abdominal pain. No nausea. No vomiting. Musculoskeletal: No myalgias. No arthralgias. Neurologic: No headaches. No dizziness. No lightheadedness. Skin: No rash. Positive redness to abdomen. EXAM Physical Exam Narrative Exam Narrative: Afebrile. Vital signs noted. Nontoxic-appearing. Cardiovascular examination reveals a regular rate and rhythm. Decreased breath sounds bilateral bases. Noovert wheezing or stridor. Abdomen is soft, nontender, and obese. There is mild redness diffusely throughout his abdomen. Neurological examination is nonfocal and lateralizing. Chronic lymphedema bilateral lower extremities. Const Vital Signs: 03/02/25 19:10 03/02/25 19:10 03/02/25 20:01 Temperature 97 F L Temperature Source Temporal Pulse Rate 87 Respiratory Rate 15 Respiratory Effort Normal Non-Labored Respiratory Pattern Blood Pressure 164/88 H Blood Pressure Mean 113 Pulse Ox 85 96 Oxygen Delivery Method Room Air Nasal Cannula Nasal Cannula Oxygen Flow Rate (L/min) 2 2 03/02/25 20:22 03/02/25 20:22 03/02/25 20:35 Temperature 97.8 F Temperature Source Oral Pulse Rate 77 Respiratory Rate 17 Respiratory Effort Respiratory Pattern Blood Pressure 114/76 Blood Pressure Mean 88 Pulse Ox 94 Oxygen Delivery Method Nasal Cannula Nasal Cannula Nasal Cannula Oxygen Flow Rate (L/min) 2 2 03/02/25 21:07 03/02/25 21:09 03/02/25 21:45 Temperature 97.8 F Temperature Source Oral Pulse Rate 82 90 93 Respiratory Rate 22 H 18 18 Respiratory Effort Respiratory Pattern Tachypnea Blood Pressure 121/79 H 130/88 H Blood Pressure Mean 93 102 Pulse Ox 95 94 Oxygen Delivery Method Nasal Cannula Nasal Cannula Oxygen Flow Rate (L/min) 2 2 MDM MDM MDM Narrative Medical decision making narrative: Differential diagnosis includes but not limited to COPD versus CHF versus pneumonia versus pulmonary embolism. Patient was hypoxic at 85% on room air. He may have obesity hypoventilation syndrome as well. He will be given a DuoNebaerosolized treatment. EKG was obtained and interpreted by myself independently. It appears to be a fib at 85 bpm and certainly leads but there are waves consistent with atrial fibrillation the rhythm strip. He does not have a history of atrial fibrillation. Chest x-ray 1 view obtained and interpreted by myself independently and shows nopneumothorax or pneumonia. WBC count normal at 5.0 with hemoglobin stable at 11.6, hematocrit 34.6, platelet count 225. BMP is grossly unremarkable with a BUN of 18 and creatinine normal at 1.02. Of note, BNP was obtained with suspicion for CHF, and it is elevated at 1559. Given his hypoxia and negative chest x-ray, I obtained a CTA of the chest and while there is no pulmonary embolism patient does have cardiomegaly with a small pericardial effusion. Patient will be administered Lasix. I do feel that he may have new onset atrialfibrillation as well as CHF. I did review his prior outpatient record and he had an echocardiogram in 2019 which showed an ejection fraction of 65%. Patientwill be discussed with the hospitalist for admission. Patient discussed with Dr. Rebollar for admission to the PCU. Patient is in stable condition. History & Record Review Discussion w/independent historian: Patient Additional record(s) reviewed:: Prior outpatient record and Prior ED visit Lab Data Attestation: I reviewed the patient's lab results. Labs: Laboratory Results - last 24 hr 03/02/25 19:53 WBC 5.0 RBC 3.95 L Hgb 11.6 L Hct 34.6 L MCV 87.6 MCH 29.4 MCHC 33.5 RDW Std Deviation 45.5 H RDW Coeff of Bre 14.3 Plt Count 225 MPV 10.5 Immature Gran % (Auto) 0.400 Neut % (Auto) 66.8 Lymph % (Auto) 21.8 Perry % (Auto) 8.2 Eos % (Auto) 2.2 Baso % (Auto) 0.6 Absolute Neuts (auto) 3.3 Absolute Lymphs (auto) 1.09 Nucleated RBC % 0 Sodium 140 Potassium 3.3 Chloride 103 Carbon Dioxide 25.3 Anion Gap 12 BUN 18 Creatinine 1.02 Estim Creat Clear Calc 116.54 Est GFR (MDRD) Non-Af 85 BUN/Creatinine Ratio 17.6 Glucose 163 H Calcium 9.2 NT pro BNP II 1559 H Radiography Diagnostic Testing: Clinical Impression(s) from Imaging Studies Chest X-Ray 03/02/25 20:29 IMPRESSION: No Acute Findings. Reading Location: [facility] Chest CTA 03/02/25 20:45 IMPRESSION: No CT evidence of pulmonary embolism. Cardiomegaly with a small pericardial effusion. Reading Location: [facility] Management Discussion w/another healthcare provider: Hospitalist Discharge Plan Dx/Rx/DC Orders Clinical Impression: Hypoxia, CHF (congestive heart failure), Obesity hypoventilation syndrome Disposition Disposition: Acute Care Hospital [facility] What to do if you have Problems For any increased pain, shortness of breath, bleeding, nausea or vomiting, chestpain, or any unexpected problems, contact your Primary Care Provider. Call [facility] ([phone]) or report to the closest Emergency Room. Call 911 if necessary. 03/02/252203 <Electronically signed by Tyron Valiente MD> Cosigner Signature (if applicable): CC: Dr. Pierce Wells MD ~ Signed [facility] Work Phone: [phone]) 844-653004-25-2025 Discharge summary [facility] Medical Records Department [address] [place] [address] Emergency Department Summary 03/02/25 MR#: [id number] Acct: [id number] Name: JOSÉ MIGUEL YOUNG . Rep #: [id number] : 1965 59 From: Tyron Valiente MD PCP: Dr. Pierce Wells MD Status:RE G ER Location: ED HPI History of Present Illness Chief Complaint: Shortness of Breath Narrative Narrative: 59-year-old male past medical history of hypertension presents with shortness ofbreath that has hadfor quite some time. He relates history that a month or longer ago he had relatives that had influenza A and 1 had influenza B. He wentand saw his primary care provider and was told that he had influenza as well although he was never tested. He continued to have shortness of breath. He denies any weight gain or leg swelling. 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 He does not wear oxygen at home. He states that he was not improving so he had been prescribed amoxicillin and finished that a few weeks ago. He got rid of the cough a few weeks ago as well. Over the last week and a half he has had increas ing shortness of breath and dyspnea on exertion. He denies any chest pain. He states he feels shortof breath and wheezy. No history of congestive heart failure. [facility] Medical History Shoulder pain HTN (hypertension) Home Medications ?Medication ?Instructions ?Recorded ?Last Taken ?Type aspirin 325 mg tablet 325 mg PO DAILY@0800 HEART H EALTH 11/19/13 1 Day Ago History ~03/11/20 atenolol 100 mg-chlorthalidone 25 1 tab PO DAILY BLOOD PRESSURE 11/19/13 1 Day Ago History mg tablet ~03/11/20 potassium chloride 10 mEq 10 meq PO DAILY supplement 0 01/13/15 1 Day Ago History tablet,extended release(part/cryst) ~0 03/11/20 guanfacine 1 mg tablet 1 tab PO DAILY BLOOD PRESSUR E 30 05/09/18 1 Day Ago History days ##30 ~03/11/20 clonazepam 0.5 mg tablet 0.5 mg PO QHS anxiety 1 Day Ago History ~03/11/20 escitalopram oxalate 20 mg tablet 20 mg PO DAILY depre ssion 01/29/19 1 Day Ago History ~03/11/20 minoxidil 10 mg tablet 20 mg PO DAILY HAIR GROWTH 1 11/26/18 1 Day Ago History ~03/11/20 orphenadrine citrate 100 mg 100 mg PO BID PRN Muscle S pasm #14 11/30/19 1 Day Ago Rx tablet,extended release tabs ~03/11/20 Allergy/AdvReac Type Severity Reaction Status Date / Time No Known Allergies Allergy Verified 03/02/25 19:10 Social History Smoking Status: Never smoker alcohol intake: never ROS ROS ED ROS Narrative Constitutional: No fever, no chills. HEENT: No sore throat. No neck pain. Cardiovascular: No chest pain. No palpitations. No pedal edema. Respiratory: No cough, positive dyspnea on exertion and shortness of breath. Abdominal: No abdominal pain. No nausea. No vomiting. Musculoskeletal: No myalgias. No arthralgias. Neurologic: No headaches. No dizziness. No lightheadedness. Skin: No rash. Positive redness to abdomen. EXAM Physical Exam Narrative Exam Narrative: Afebrile. Vital signs noted. Nontoxic-appearing. Cardiovascular examination reveals a regular rate and rhythm. Decreased breath sounds bilateral bases. Noovert wheezing or stridor. Abdomen is soft, nontender, and obese. There is mild redness diffusely throughout his abdomen. Neurological examination is nonfocal and lateralizing. Chronic lymphedema bilateral lower extremities. Const Vital Signs: 03/02/25 19:10 03/02/25 19:10 03/02/25 20:01 Temperature 97 F L Temperature Source Temporal Pulse Rate 87 Respiratory Rate 15 Respiratory Effort Normal Non-Labored Respiratory Pattern Blood Pressure 164/88 H Blood Pressure Mean 113 Pulse Ox 85 96 Oxygen Delivery Method Room Air Nasal Cannula Nasal Cannula Oxygen Flow Rate (L/min) 2 2 03/02/25 20:22 03/02/25 20:22 03/02/25 20:35 Temperature 97.8 F Temperature Source Oral Pulse Rate 77 Respiratory Rate 17 Respiratory Effort Respiratory Pattern Blood Pressure 114/76 Blood Pressure Mean 88 Pulse Ox 94 Oxygen Delivery Method Nasal Cannula Nasal Cannula Nasal Cannula Oxygen Flow Rate (L/min) 2 2 03/02/25 21:07 03/02/25 21:09 03/02/25 21:45 Temperature 97.8 F Temperature Source Oral Pulse Rate 82 90 93 Respiratory Rate 22 H 18 18 Respiratory Effort Respiratory Pattern Tachypnea Blood Pressure 121/79 H 130/88 H Blood Pressure Mean 93 102 Pulse Ox 95 94 Oxygen Delivery Method Nasal Cannula Nasal Cannula Oxygen Flow Rate (L/min) 2 2 MDM MDM MDM Narrative Medical decision making narrative: Differential diagnosis includes but not limited to COPD versus CHF versus pneumonia versus pulmonary embolism. Patient was hypoxic at 85% on room air. He may have obesity hypoventilation syndrome as well. He will be given a DuoNebaerosolized treatment. EKG was obtained and interpreted by myself inde pendently. It appears to be a fib at 85 bpm and certainly leads but there are waves consistent withatrial fibrillation the rhythm strip. He does not have a history of atrial fibrillation. Chest x-ray 1 view obtained and interpreted by myself independently and shows nopneumothorax or pneumonia. WBC count normal at 5.0 with hemoglobin stable at 11.6, hematocrit 34.6, platelet count 225.BMP is grossly unremarkable with a BUN of 18 and creatinine normal at 1.02. Of note, BNP was obtained with suspicion for CHF, and it is elevated at 1559. Given his hypoxia and negative chest x-ray, Iobtained a CTA of the chest and while there is no pulmonary embolism patient does have cardiomegalywith a small pericardial effusion. Patient will be administered Lasix. I do feel that he may have new onset atrialfibrillation as well as CHF. I did review his prior outpatient record and he had an ec hocardiogram in 2019 which showed an ejection fraction of 65%. Patientwill be discussed with the hospitalist for admission. Patient discussed with Dr. Rebollar for admission to the PCU. Patient is in stable condition. History & Record Review Discussion w/independent historian: Patient Additional record(s) reviewed:: Prior outpatient record and Prior ED visit Lab Data Attestation: I reviewed the patient's lab results. Labs: Laboratory Results - last 24 hr 03/02/25 19:53 WBC 5.0 RBC 3.95 L Hgb 11.6 L Hct 34.6 L MCV 87.6 MCH 29.4 MCHC 33.5 RDW Std Deviation 45.5 H RDW Coeff of Bre 14.3 Plt Count 225 MPV 10.5 Immature Gran % (Auto) 0.400 Neut % (Auto) 66.8 Lymph % (Auto) 21.8 Perry % (Auto) 8.2 Eos % (Auto) 2.2 Baso % (Auto) 0.6 Absolute Neuts (auto) 3.3 Absolute Lymphs (auto) 1.09 Nucleated RBC % 0 Sodium 140 Potassium 3.3 Chloride 103 Carbon Dioxide 25.3 Anion Gap 12 BUN 18 Creatinine 1.02 Estim Creat Clear Calc 116.54 Est GFR (MDRD) Non-Af 85 BUN/Creatinine Ratio 17.6 Glucose 163 H Calcium 9.2 NT pro BNP II 1559 H Radiography Diagnostic Testing: Clinical Impression(s) from Imaging Studies Chest X-Ray 03/02/25 20:29 IMPRESSION: No Acute Findings. Reading Location: [facility] Chest CTA 03/02/25 20:45 IMPRESSION: No CT evidence of pulmonary embolism. Cardiomegaly with a small pericardial effusion. Reading Location: [facility] Management Discussion w/another healthcare provider: Hospitalist Discharge Plan Dx/Rx/DC Orders Clinical Impression: Hypoxia, CHF (congestive heart failure), Obesity hypoventilation syndrome Disposition Disposition: Acute Care Hospital [facility] What to do if you have Problems For any increased pain, shortness of breath, bleeding, nausea or vomiting, chestpain, or any unexpected problems, contact your Primary Care Provider. Call [facility] ([phone]) or report tothe closest Emergency Room. Call 911 if necessary. 03/02/252203 Cosigner Signature (if applicable): CC: Dr. Pierce Wells MD ~ Signed [facility]04-25-2025 Radiology Diagnostic study note [facility] Imaging Services [address], [place] [address] CTA Chest W/WO Contrast MR#: [id number] Acct: [id number] Name: JOSÉ MIGUEL YOUNG . Rep #: [id number] : 1965 M 59 From: Oliver Garza MD PCP: Dr. Pierce Wells MD Status: RE G ER Study:CTA Chest W/WO Contrast Date of Exam: 03/02/25 Exam# [id number] Ordering Dr: Tyron Valiente MD PROCEDURE: CTA CHEST W/WO CONTRAST 03/02/2025 REASON FOR EXAM: HYPOXIA TECHNIQUE: CTA imaging of the chest with intravenous contrast. Multiplanar and multisequence images were obtained. 3D, 3D post processing, 3D reconstructions, Maximum intensity projection (MIPs) Volume rendering and Shaded surface rendering was provided. One or more dose reduction techniques were used (e.g., Automated exposure control, adjustment of the mA and/or kV according to patient size, use of iterative reconstruction technique). FINDINGS: Thoracic Aorta: Atherosclerotic plaques. No aneurysm or dissection. Heart: Cardiomegaly. Small pericardial effusion. Pulmonary Vessels: No filling defect to suggest pulmonary embolism. Hardware: None Lymph nodes: Unremarkable. Lungs and Airways: No pneumonia, atelectasis, nodule, or mass. Pleura: No pleural effusion. Upper Abdomen: Unremarkable. Bones: Degenerative changes of the thoracic spine. CT/CTA Chest W/WO Contrast IMPRESSION: No CT evidence of pulmonary embolism. Cardiomegaly with a small pericardial effusion. Reading Location: [facility] CC: Dr. Tyron Valiente MD; Dr. Pierce Wells MD ~ Prn Physical Therapist: Signed [facility]04-25-2025 Radiology Diagnostic study note [facility] Imaging Services [address] [place] [id number] Chest 1 View (Portable) MR#: [id number] Acct: [id number] Name: JOSÉ MIGUEL YOUNG . Rep #: [id number] : 1965 M 59 From: Oliver Garza MD PCP: Dr. Pierce Wells MD Status: WA E ER Study:Chest 1 View (Portable) Date of Exam: 03/02/25 Exam# [id number] Ordering Dr: Tyron Valiente MD PROCEDURE: CHEST 1 VIEW (PORTABLE) 03/02/2025 REASON FOR EXAM: COUGH TECHNIQUE: Frontal view of the chest. FINDINGS: Hardware: None Heart: Heart size is moderately enlarged. Lungs: The lungs are clear. Bones: The bones are unremarkable. Other: RAD/Chest 1 View (Portable) IMPRESSION: No Acute Findings. Reading Location: [id number] CC: Dr. Tyron Valiente MD; Dr. Pierce Wells MD ~ Prn Physical Therapist: Signed [facility]04-25-2025 NoteHNO ID: [id number] Author: LILIAN MCKENNA APRN.MELIA Service: ? Author Type: Nurse Practitioner Type: Progress Notes Filed: 03/02/2025 19:00 Note Text: Patient came in with complaints of being sick for a month. Patient says it keeps getting worse. Patient says what used to take him 15 minutes now takes over half hour. Patient says he is extremely short of breath and fatigued. Upon examination patient is tachycardic in the 140s or higher. Patient is also low on oxygen on room air. He is running 85 to 87%. At this time patient is being referred to the emergency room we do not even have x-ray available and patient needs further evaluation. will take him now. I do not want to squad.[facility]02-24-2025 Telephone encounter Note* Telephone Encounter - Qing Saab LPN - 01/01/2025 10:32 AM EST Spouse notified letter ready for pickup at [employer]. [facility]02-24-2025 Miscellaneous Notes* Telephone Encounter - Qing Saab LPN - 01/01/2025 10:32 AM EST Spouse notified letter ready for pickup at [employer]. * Telephone Encounter - Armani Leong APRN.CNP - 01/01/2025 10:13 AM EST Letter created and signed. Armani Leong APRN.MELIA * Telephone Encounter - Braeden Valdes RN - 01/01/2025 9:33 AM EST Spouse calls back to report patient needs return to work letter to be for tomorrow 01/02/2025. Braeden Valdes RN * Telephone Encounter - Braeden Valdes RN - 01/01/2025 9:29 AM EST Spouse calls to report that patient needs a letter stating that he is able to return to work today 01/01/2025. Current letter only says he was treated for influenza and patients employer needs one stating he isable to return. Blanca requests call back at [phone] when ready for worm picker. Aware provider is not in until later today. Braeden Valdes RN [facility] Telephone encounter Note * Telephone Encounter - Armani Leong APRN.MELIA - 01/01/2025 10:13 AM EST Letter created and signed. Armani Leong APRN.MELIA [facility]02-24-2025 Telephone encounter Note* Telephone Encounter - Braeden Valdes RN - 01/01/2025 9:33 AM EST Spouse calls back to report patient needs return to work letter to be for tomorrow 01/02/2025. Braeden Valdes RN [facility]02-24-2025 Telephone encounter Note* Telephone Encounter - Braeden Valdes RN - 01/01/2025 9:29 AM EST Spouse calls to report that patient needs a letter stating that he is able to return to work today 01/01/2025. Current letter only says he was treated for influenza and patients employer needs one stating he isable to return. Blanca requests call back at [phone] when ready for worm picker. Aware provider is not in until later today. Braeden Valdes RN [facility]02-21-2025 History of Present illness Narrative* Pierce Wells MD - 12/29/2024 4:00 PM EST Chief Complaint Cough HPI José Miguel Young Sr. is a 59 year old male who presents here today for a same day visit. Pt here today with c/o a cough x 2 days. Acute onset of cough, body aches. Other famly members havebeen yessica treated for influenza. Posite wheezing.. Past medical history, appointments, medications, allergies reviewed. Previous Medical History PAST MEDICAL HISTORY Diagnosis Date Unspecified essential hypertension Previous Surgical History PAST SURGICAL HISTORY Procedure Laterality Date PAST SURGICAL HISTORY OF removal cyst upper back Family History FAMILY HISTORY Problem Relation Age of Onset Diabetes Mother Hypertension Mother Stroke Father other (Lung cancer) Father Diabetes Brother Patient Allergies ALLERGIES Allergen Reactions Effexor [Venlafaxin* Mental Status Change Suicidal thoughts Gabapentin Swelling Leg swelling Amlodipine Other: See Comments leg swelling Lisinopril Cough Current Medications Current Outpatient Medications on File Prior to Visit Medication Sig Atenolol-Chlorthalidone 100-25 mg per tablet Take 1 tablet by mouth once daily. escitalopram oxalate (LEXAPRO) 10 mg tablet Take 1 tablet by mouth once daily. minoxidil (LONITEN) 10 mg tablet Take 2 tablets by mouth once daily. finasteride (PROSCAR) 5 mg tablet Take 1 tablet by mouth once daily. tamsulosin (FLOMAX) 0.4 mg Take 1 capsule by mouth daily at bedtime. omeprazole (PRILOSEC) 20 mg capsule Take 1 capsule by mouth daily before breakfast. 1/2 hr before meal. NIFEdipine ER (PROCARDIA XL) 30 mg 24 hr tablet Take 1 tablet by mouth once daily. ibuprofen (MOTRIN) 800 mg tablet TAKE ONE TABLET BY MOUTH TWICE DAILY WITH MEALS NEEDED guanFACINE (TENEX) 1 mg tablet Take 1 tablet by mouth daily at bedtime. losartan (COZAAR) 100 mg tablet Take 1 tablet by mouth once daily. benzonatate (TESSALON PERLES) 100 mg capsule Take 1 capsule by mouth three times a day as needed for cough. aspirin 325 mg tablet Take 325 mg by mouth once daily. No current facility-administered medications on file prior to visit. Social History Social History Tobacco Use Smoking status: Never Smokeless tobacco: Former Types: Chew Quit date: 10/19/2010 Tobacco comments: Quit chewing 5years Substance Use Topics Alcohol use: No Drug use: No EXAM: There were no vitals taken for this visit. General Appearance: Well appearing, alert, in no acute distress, well-hydrated, well nourished. andMorbidly obese. Lungs: mild difufse rhonchi. Heart: RRR without murmur, gallop, or rubs. No ectopy. Health Maintenance List Depression Screening Never done BP Controlled (<130/80) Never done Shingrix Vaccine(1 of 2) Never done Pneumococcal Vaccine: 50+(2 of 2 - PCV) due on 08/26/2017 Annual PCP Team Chronic Disease Visit due on 09/12/2025 Diabetes Screening due on 09/12/2027 Colorectal Cancer Screening due on 10/23/2027 Lipid Screening due on 09/12/2029 Prostate Cancer Screening Discussion due on 09/12/2029 DTaP,Tdap,Td Vaccine(3 - Td or Tdap) due on 07/03/2032 Influenza Vaccine Completed Hepatitis C Screening Discontinued HIV Screening Discontinued Covid-19 Vaccine Discontinued Data reviewed None ASSESSMENT/PLAN: 1. Acute cough - ICD9: 786.2, ICD10: R05.1 (primary diagnosis) - BENZONATATE 100 MG CAPSULE - OSELTAMIVIR 75 MG CAPSULE - PREDNISONE 20 MG TABLET 2. Influenza - ICD9: 487.1, ICD10: J11.1 - BENZONATATE 100 MG CAPSULE - OSELTAMIVIR 75 MG CAPSULE - PREDNISONE 20 MG TABLET Call if not improving in 5-7 days Medical Decision Making: Problems: Low: Acute, uncomplicated illness or injury Risk: Moderate: Drug management Medical Decision Making Level: 3 - Low Pierce Wells MD documented in this encounterCos[facility]02-[facility]-2025 NoteHNO ID: [id number] Author: PIERCE WELLS MD Service: ? Author Type: Physician Type: Progress Notes Filed: 12/29/2024 17:14 Note Text: Chief Complaint Cough HPI José Miguel Young Sr. is a 59 year old male who presents here today for a same day visit. Pt here today with c/o a cough x 2 days. Acute onset of cough, body aches. Other famly members have been illand treated for influenza. Posite wheezing.. Past medical history, appointments, medications, allergies reviewed. Previous Medical History PAST MEDICAL HISTORY Diagnosis Date Unspecified essential hypertension Previous Surgical History PAST SURGICAL HISTORY Procedure Laterality Date PAST SURGICAL HISTORY OF removal cyst upper back Family History FAMILY HISTORY Problem Relation Age of Onset Diabetes Mother Hypertension Mother Stroke Father other (Lung cancer) Father Diabetes Brother Patient Allergies ALLERGIES Allergen Reactions Effexor [Venlafaxin* Mental Status Change Suicidal thoughts Gabapentin Swelling Leg swelling Amlodipine Other: See Comments leg swelling Lisinopril Cough Current Medications Current Outpatient Medications on File Prior to Visit Medication Sig Atenolol-Chlorthalidone 100-25 mg per tablet Take 1 tablet by mouth once daily. escitalopram oxalate (LEXAPRO) 10 mg tablet Take 1 tablet by mouth once daily. minoxidil (LONITEN) 10 mg tablet Take 2 tablets by mouth once daily. finasteride (PROSCAR) 5 mg tablet Take 1 tablet by mouth once daily. tamsulosin (FLOMAX) 0.4 mg Take 1 capsule by mouth daily at bedtime. omeprazole (PRILOSEC) 20 mg capsule Take 1 capsule by mouth daily before breakfast. 1/2 hr before meal. NIFEdipine ER (PROCARDIA XL) 30 mg 24 hr tablet Take 1 tablet by mouth once daily. ibuprofen (MOTRIN) 800 mg tablet TAKE ONE TABLET BY MOUTH TWICE DAILY WITH MEALS NEEDED guanFACINE (TENEX) 1 mg tablet Take 1 tablet by mouth daily at bedtime. losartan (COZAAR) 100 mg tablet Take 1 tablet by mouth once daily. benzonatate (TESSALON PERLES) 100 mg capsule Take 1 capsule by mouth three times a day as needed for cough. aspirin 325 mg tablet Take 325 mg by mouth once daily. No current facility-administered medications on file prior to visit. Social History Social History Tobacco Use Smoking status: Never Smokeless tobacco: Former Types: Chew Quit date: 10/19/2010 Tobacco comments: Quit chewing 5years Substance Use Topics Alcohol use: No Drug use: No EXAM: There were no vitals taken for this visit. General Appearance: Well appearing, alert, in no acute distress, well-hydrated, well nourished. and Morbidly obese. Lungs: mild difufse rhonchi. Heart: RRR without murmur, gallop, or rubs. No ectopy. Health Maintenance List Depression Screening Never done BP Controlled (<130/80) Never done Shingrix Vaccine(1 of 2) Never done Pneumococcal Vaccine: 50+(2 of 2 - PCV) due on 08/26/2017 Annual PCP Team Chronic Disease Visit due on 09/12/2025 Diabetes Screening due on 09/12/2027 Colorectal Cancer Screening due on 10/23/2027 Lipid Screening due on 09/12/2029 Prostate Cancer Screening Discussion due on 09/12/2029 DTaP,Tdap,Td Vaccine(3 - Td or Tdap) due on 07/03/2032 Influenza Vaccine Completed Hepatitis C Screening Discontinued HIV Screening Discontinued Covid-19 Vaccine Discontinued Data reviewed None ASSESSMENT/PLAN: 1. Acute cough - ICD9: 786.2, ICD10: R05.1 (primary diagnosis) - BENZONATATE 100 MG CAPSULE - OSELTAMIVIR 75 MG CAPSULE - PREDNISONE 20 MG TABLET 2. Influenza - ICD9: 487.1, ICD10: J11.1 - BENZONATATE 100 MG CAPSULE - OSELTAMIVIR 75 MG CAPSULE - PREDNISONE 20 MG TABLET Call if not improving in 5-7 days Medical Decision Making: Problems: Low: Acute, uncomplicated illness or injury Risk: Moderate: Drug management Medical Decision Making Level: 3 - Shan Wells [facility]02-07-2025 Telephone encounter Note* Telephone Encounter - Braeden Valdes RN - 12/15/2024 3:26 PM EST Spouse calls to report patient is out of ibuprofen and has no refills at pharmacy. Contacted [facility] and spoke to Izabel. Patient has refills and hasn't filled prescription since early November. Able to refill. Closing encounter. Nothing further needed. Braeden Valdse RN [facility]02-07-2025 Miscellaneous Notes* Telephone Encounter - Braeden Valdes RN - 12/15/2024 3:26 PM EST Spouse calls to report patient is out of ibuprofen and has no refills at pharmacy. Contacted [facility] and spoke to Izabel. Patient has refills and hasn't filled prescription since early November. Able to refill. Closing encounter. Nothing further needed. Braeden Valdes RN documented [facility] Instructions* Patient Instructions* Armani Leong APRN.CNP - 09/12/2024 1:15 PM EST Get labs Medication refilled Flu vaccine given Cologuard will come to your house See us back in 12 months, sooner if needed. Armani Leong APRN.CNP documented in this encounterCos[facility]11-[facility] History of Present illness Narrative* Armani Leong APRN.CNP - 09/12/2024 1:00 PM EST Chief Complaint Patient presents with: Yearly Exam HPI José Miguel Camarenauylissatrista Orona. is a 59 year old male who presents here today for physical and medication follow up. Here with and granddaughter. Patient here for a wellness examination and medication follow-up. 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 Overdue for blood work and colon cancer screening. Previously completed iFOBT kit in the past. He declines colonoscopy as he is very busy with his job and unable to take time off. History of obesity. 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 BPH: Doing okay with Proscar and Flomax. Feels like symptoms are controlled. Hypertension: Following a low-salt diet. Taking his medication as prescribed. Denies any shortness of breath, chest pain, syncope, leg swelling. Depression: Depression is overall controlled. On Lexapro 10 mg. Previously on Wellbutrin also but discontinued. A lot of his depression is in regard to the loss of his daughter years back. During theiet times and the holidays there seems to be more depressive symptoms. He is overall doing better. Denies any SI. Past medical history, appointments, medications, allergies reviewed. Previous Medical History PAST MEDICAL HISTORY Diagnosis Date Unspecified essential hypertension Previous Surgical History PAST SURGICAL HISTORY Procedure Laterality Date PAST SURGICAL HISTORY OF removal cyst upper back Family History FAMILY HISTORY Problem Relation Age of Onset Diabetes Mother Hypertension Mother Stroke Father other (Lung cancer) Father Diabetes Brother Patient Allergies ALLERGIES Allergen Reactions Effexor [Venlafaxin* Mental Status Change Suicidal thoughts Gabapentin Swelling Leg swelling Amlodipine Other: See Comments leg swelling Lisinopril Cough Current Medications Current Outpatient Medications on File Prior to Visit Medication Sig finasteride (PROSCAR) 5 mg tablet Take 1 tablet by mouth once daily. tamsulosin (FLOMAX) 0.4 mg Take 1 capsule by mouth daily at bedtime. omeprazole (PRILOSEC) 20 mg capsule Take 1 capsule by mouth daily before breakfast. 1/2 hr before meal. NIFEdipine ER (PROCARDIA XL) 30 mg 24 hr tablet Take 1 tablet by mouth once daily. ibuprofen (MOTRIN) 800 mg tablet TAKE ONE TABLET BY MOUTH TWICE DAILY WITH MEALS NEEDED guanFACINE (TENEX) 1 mg tablet Take 1 tablet by mouth daily at bedtime. losartan (COZAAR) 100 mg tablet Take 1 tablet by mouth once daily. escitalopram oxalate (LEXAPRO) 10 mg tablet Take 1 tablet by mouth once daily. minoxidil (LONITEN) 10 mg tablet Take 2 tablets by mouth once daily. Atenolol-Chlorthalidone 100-25 mg per tablet Take 1 tablet by mouth once daily. benzonatate (TESSALON PERLES) 100 mg capsule Take 1 capsule by mouth three times a day as needed for cough. buPROPion XL (WELLBUTRIN XL) 150 mg 24 hr tablet Take 1 tablet by mouth once daily. (Patient not taking: Reported on 11/12/2023) aspirin 325 mg tablet Take 325 mg by mouth once daily. No current facility-administered medications on file prior to visit. Social History Social History Tobacco Use Smoking status: Never Smokeless tobacco: Former Types: Chew Quit date: 10/19/2010 Tobacco comments: Quit chewing 5years Substance Use Topics Alcohol use: No Drug use: No Review of Symptoms REVIEW OF SYSTEMS PAIN ASSESSMENT: Negative for pain, history of chronic pain, or current treatment for a chronic pain condition. HEENT: Negative for frequent or significant headaches, No changes in hearing or vision, no nose bleeds or other nasal problems NECK: Negative for lumps, goiter, pain and significant neck swelling RESPIRATORY: Negative for cough, hemoptysis, wheezing, COPD, dyspnea or shortness of breath CARDIOVASCULAR: See HPI GI: No nausea, vomiting, or diarrhea MUSCULOSKELETAL: Negative for joint pain or swelling, back pain or muscle pain PSYCH: See HPI HEMATOLOGY/LYMPHOLOGY: Negative for prolonged bleeding, bruising easily or swollen nodes ENDOCRINE: Negative for cold or heat intolerance, polyuria, polydipsia and goiter NEURO: No history of headaches, syncope, paralysis, seizures or tremors EXAM: BP 136/82 Pulse 68 Resp 16 Wt (!) 161 kg (355 lb) SpO2 97% BMI 54.78 kg/m General Appearance: Well appearing, alert, in no acute distress, well-hydrated, well nourished..Obese Head: Normocephalic, no masses, lesions, tenderness or abnormalities. Eyes: Anicteric sclera. Pupils are equally round and reactive to light. Extraocular movements are intact. . Ears: External ears normal, canals clear. Nose/Sinuses: Nares normal, septum midline, mucosa normal, no drainage or sinus tenderness. Oropharynx: Lips, mucosa, and tongue normal, teeth and gums normal, oropharynx normal. Neck: Supple, no adenopathy; thyroid symmetric, normal size, no bruits. Lungs: Lungs clear to auscultation. No wheezing, rhonchi, rales.. Heart: RRR without murmur, gallop, or rubs. No ectopy. Abdomen: Normal abdominal exam, Abdomen soft, non-tender. Bowel sounds normal. No masses, organomegaly. Extremities: No deformities, edema Lymph Nodes: No cervical lymphadenopathy and No supraclavicular lymphadenopathy. Health Maintenance List BP Controlled (<130/80) Never done Shingrix Vaccine(1 of 2) Never done Colorectal Cancer Screening due on 10/11/2024 Depression Screening due on 09/12/2024 Influenza Vaccine(1) due on 05/07/2025 Diabetes Screening due on 07/03/2025 Annual PCP Team Chronic Disease Visit due on 09/12/2025 Lipid Screening due on 07/03/2027 Prostate Cancer Screening Discussion due on 07/03/2027 DTaP,Tdap,Td Vaccine(3 - Td or Tdap) due on 07/03/2032 Hepatitis C Screening Discontinued HIV Screening Discontinued Covid-19 Vaccine Discontinued Data reviewed Nothing recent ASSESSMENT/PLAN: 1. Wellness examination - ICD9: V70.0, ICD10: Z00.00 (primary diagnosis) - Counseled on healthy diet and regular exercise - Discussed need for and benefit of weight loss. BMI 54.78 kg/(m^2) - Colorectal cancer screening recommended - agrees to Cologuard - Risks/benefits of prostate cancer screening discussed. screening PSA ordered - Patient counseled on and acknowledged vaccine benefits/risks/side effects; VIS provided: Influenza - Follow up for annual exam in one year - LIPID PANEL, NONFASTING - PSA/PROSTATE SPECIFIC ANTIGEN SCREENING - HEMOGLOBIN A1C 2. Essential hypertension - ICD9: 401.9, ICD10: I10 - Controlled - Continue current medications - Recommend home blood pressure monitoring, to bring results to next visit - Encouraged sodium restriction, DASH or Mediterranean diet - Recommend regular aerobic exercise - COMPREHENSIVE METABOLIC PANEL - COMPLETE BLOOD COUNT AND DIFFERENTIAL - ATENOLOL 100 MG-CHLORTHALIDONE 25 MG TABLET - MINOXIDIL 10 MG TABLET 3. Reactive depression - ICD9: 300.4, ICD10: F32.9 -Doing okay without Wellbutrin. Continue Lexapro. - ESCITALOPRAM 10 MG TABLET 4. Benign prostatic hyperplasia with nocturia - ICD9: 600.01, 788.43, ICD10: N40.1, R35.1 -Stable on Proscar and Flomax. Continue current medication as prescribed. - PSA/PROSTATE SPECIFIC ANTIGEN SCREENING 5. Gastroesophageal reflux disease without esophagitis - ICD9: 530.81, ICD10: K21.9 -Stable on omeprazole 6. Encounter for immunization - ICD9: V03.89, ICD10: Z23 - INFLUENZA VACCINE, AGE 6MO-64YR, TRIVALENT (AFLURIA, FLULAVAL, FLUVIRIN, FLUZONE) 7. Screening for colon cancer - ICD9: V76.51, ICD10: Z12.11 - COLOGUARD Armani Leong APRN.CNP RTO in 12 months, sooner if needed. This note was partly generated using [employer]SLID[employer] voice recognition dictation and may contain some misspelled or inaccurate words missed on review. documented in this encounterCos[facility]11-[facility]24 NoteHNO ID: [id number] Author: ARMANI LEONG APRN.CNP Service: ? Author Type: Nurse Practitioner Type: Progress Notes Filed: 09/12/2024 13:29 Note Text: Chief Complaint Patient presents with: Yearly Exam HPI José Miguel Young Sr. is a 59 year old male who presents here today for physical and medication follow up. Here with and granddaughter. Patient here for a wellness examination and medication follow-up. 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 Overdue for blood work and colon cancer screening. Previously completed iFOBT kit in the past. He declines colonoscopy as he is very busy with his job and unable to take time off. History of obesity. 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 BPH: Doing okay with Proscar and Flomax. Feels like symptoms are controlled. Hypertension: Following a low-salt diet. Taking his medication as prescribed. Denies any shortness of breath, chest pain, syncope, leg swelling. Depression: Depression is overall controlled. On Lexapro 10 mg. Previously on Wellbutrin also but discontinued. A lot of his depression is in regard to the loss of his daughter years back. During the quiet times and the holidays there seems to be more depressive symptoms. He is overall doing better. Denies any SI. Past medical history, appointments, medications, allergies reviewed. Previous Medical History PAST MEDICAL HISTORY Diagnosis Date Unspecified essential hypertension Previous Surgical History PAST SURGICAL HISTORY Procedure Laterality Date PAST SURGICAL HISTORY OF removal cyst upper back Family History FAMILY HISTORY Problem Relation Age of Onset Diabetes Mother Hypertension Mother Stroke Father other (Lung cancer) Father Diabetes Brother Patient Allergies ALLERGIES Allergen Reactions Effexor [Venlafaxin* Mental Status Change Suicidal thoughts Gabapentin Swelling Leg swelling Amlodipine Other: See Comments leg swelling Lisinopril Cough Current Medications Current Outpatient Medications on File Prior to Visit Medication Sig finasteride (PROSCAR) 5 mg tablet Take 1 tablet by mouth once daily. tamsulosin (FLOMAX) 0.4 mg Take 1 capsule by mouth daily at bedtime. omeprazole (PRILOSEC) 20 mg capsule Take 1 capsule by mouth daily before breakfast. 1/2 hr before meal. NIFEdipine ER (PROCARDIA XL) 30 mg 24 hr tablet Take 1 tablet by mouth once daily. ibuprofen (MOTRIN) 800 mg tablet TAKE ONE TABLET BY MOUTH TWICE DAILY WITH MEALS NEEDED guanFACINE (TENEX) 1 mg tablet Take 1 tablet by mouth daily at bedtime. losartan (COZAAR) 100 mg tablet Take 1 tablet by mouth once daily. escitalopram oxalate (LEXAPRO) 10 mg tablet Take 1 tablet by mouth once daily. minoxidil (LONITEN) 10 mg tablet Take 2 tablets by mouth once daily. Atenolol-Chlorthalidone 100-25 mg per tablet Take 1 tablet by mouth once daily. benzonatate (TESSALON PERLES) 100 mg capsule Take 1 capsule by mouth three times a day as needed for cough. buPROPion XL (WELLBUTRIN XL) 150 mg 24 hr tablet Take 1 tablet by mouth once daily. (Patient not taking: Reported on 11/12/2023) aspirin 325 mg tablet Take 325 mg by mouth once daily. No current facility-administered medications on file prior to visit. Social History Social History Tobacco Use Smoking status: Never Smokeless tobacco: Former Types: Chew Quit date: 10/19/2010 Tobacco comments: Quit chewing 5years Substance Use Topics Alcohol use: No Drug use: No Review of Symptoms REVIEW OF SYSTEMS PAIN ASSESSMENT: Negative for pain, history of chronic pain, or current treatment for a chronic pain condition. HEENT: Negative for frequent or significant headaches, No changes in hearing or vision, no nose bleeds or other nasal problems NECK: Negative for lumps, goiter, pain and significant neck swelling RESPIRATORY: Negative for cough, hemoptysis, wheezing, COPD, dyspnea or shortness of breath CARDIOVASCULAR: See HPI GI: No nausea, vomiting, or diarrhea MUSCULOSKELETAL: Negative for joint pain or swelling, back pain or muscle pain PSYCH: See HPI HEMATOLOGY/LYMPHOLOGY: Negative for prolonged bleeding, bruising easily or swollen nodes ENDOCRINE: Negative for cold or heat intolerance, polyuria, polydipsia and goiter NEURO: No history of headaches, syncope, paralysis, seizures or tremors EXAM: BP 136/82 Pulse 68 Resp 16 Wt (!) 161 kg (355 lb) SpO2 97% BMI 54.78 kg/m? General Appearance: Well appearing, alert, in no acute distress, well-hydrated, well nourished..Obese Head: Normocephalic, no masses, lesions, tenderness or abnormalities. Eyes: Anicteric sclera. Pupils are equally round and reactive to light. Extraocular movements are intact. . Ears: External ears normal, canals clear. Nose/Sinuses: Nares normal, septum midline, mucosa (more content not included)...[facility]10-29-2024 Telephone encounter Note* Telephone Encounter - Armani Leong APRN.CNP - 09/05/2024 11:23 AM EDT Sent The following approved medication requests have been transmitted electronically. Requested Prescriptions Signed Prescriptions Disp Refills escitalopram oxalate (LEXAPRO) 10 mg tablet 30 tablet 5 Sig: Take 1 tablet by mouth once daily. Authorizing Provider: ARMANI LEONG APRN.CNP [facility]10-29-2024 Miscellaneous Notes* Telephone Encounter - Armani Leong APRN.CNP - 09/05/2024 11:23 AM EDT Sent The following approved medication requests have been transmitted electronically. Requested Prescriptions Signed Prescriptions Disp Refills escitalopram oxalate (LEXAPRO) 10 mg tablet 30 tablet 5 Sig: Take 1 tablet by mouth once daily. Authorizing Provider: ARMANI LEONG APRN.CNP * Telephone Encounter - Suzi Wyman - 09/05/2024 10:32 AM EDT Patient's spouse calling to request medication that is : scitalopram oxalate (LEXAPRO) 10 mg tablet () Last office visit Future visit scheduled No [facility]ARMACY: [facility] documented in this encounterCos[facility]10[facility] Telephone encounter Note * Telephone Encounter - Armani Leong APRN.CNP - 09/05/2024 11:21 AM EDT The following approved medication requests have been transmitted electronically. Requested Prescriptions Pending Prescriptions Disp Refills Atenolol-Chlorthalidone 100-25 mg per tablet 30 tablet 1 Sig: Take 1 tablet by mouth once daily. minoxidil (LONITEN) 10 mg tablet 60 tablet 1 Sig: Take 2 tablets by mouth once daily. Armani Leong APRN.CNP [facility]10-29-2024 Miscellaneous Notes* Telephone Encounter - Armani Leong APRN.CNP - 09/05/2024 11:21 AM EDT The following approved medication requests have been transmitted electronically. Requested Prescriptions Pending Prescriptions Disp Refills Atenolol-Chlorthalidone 100-25 mg per tablet 30 tablet 1 Sig: Take 1 tablet by mouth once daily. minoxidil (LONITEN) 10 mg tablet 60 tablet 1 Sig: Take 2 tablets by mouth once daily. Armani Leong APRN.CNP * Telephone Encounter - Ruby Lee MA - 09/05/2024 10:57 AM EDT Prescription Refill Information The patient has been identified by name and date of : Yes Caregiver verified no other encounters exist for this prescription request: Yes Caregiver confirmed with patient/requestor that no other refills are due, in the near future, with this provider at this time: No The last office visit in the department: 07/23/23 Does the patient have a future office visit with this provider/department: Yes Requested Prescriptions Pending Prescriptions Disp Refills Atenolol-Chlorthalidone 100-25 mg per tablet 30 tablet 5 Sig: Take 1 tablet by mouth once daily. minoxidil (LONITEN) 10 mg tablet 60 tablet 5 Sig: Take 2 tablets by mouth once daily. Ruby Lee MA September 05, 2024 10:57 AM * Telephone Encounter - Suzi Wyman - 09/05/2024 10:29 AM EDT Prescription Refill Information The patient has been identified by name and date of : Yes Caregiver verified no other encounters exist for this prescription request: Yes Caregiver confirmed with patient/requestor that no other refills are due, in the near future, with this provider at this time: Yes The last office visit in the department: 07-23-23 Does the patient have a future office visit with this provider/department: No Requested Prescriptions Pending Prescriptions Disp Refills Atenolol-Chlorthalidone 100-25 mg per tablet 30 tablet 5 Sig: Take 1 tablet by mouth once daily. minoxidil (LONITEN) 10 mg tablet 60 tablet 5 Sig: Take 2 tablets by mouth once daily. Suzi Wyman September 05, 2024 10:30 AM documented in this encounterCos[facility]10-[facility] Telephone encounter Note * Telephone Encounter - Ruby Lee MA - 09/05/2024 10:57 AM EDT Prescription Refill Information The patient has been identified by name and date of : Yes Caregiver verified no other encounters exist for this prescription request: Yes Caregiver confirmed with patient/requestor that no other refills are due, in the near future, with this provider at this time: No The last office visit in the department: 07/23/23 Does the patient have a future office visit with this provider/department: Yes Requested Prescriptions Pending Prescriptions Disp Refills Atenolol-Chlorthalidone 100-25 mg per tablet 30 tablet 5 Sig: Take 1 tablet by mouth once daily. minoxidil (LONITEN) 10 mg tablet 60 tablet 5 Sig: Take 2 tablets by mouth once daily. Ruby Lee MA September 05, 2024 10:57 AM [facility]10-29-2024 Telephone encounter Note* Telephone Encounter - Suzi Wyman - 09/05/2024 10:32 AM EDT Patient's spouse calling to request medication that is : scitalopram oxalate (LEXAPRO) 10 mg tablet () Last office visit Future visit scheduled No PHARMACY: [facility] T [facility]10-29-2024 Telephone encounter Note* Telephone Encounter - Suzi Wyman - 09/05/2024 10:29 AM EDT Prescription Refill Information The patient has been identified by name and date of : Yes Caregiver verified no other encounters exist for this prescription request: Yes Caregiver confirmed with patient/requestor that no other refills are due, in the near future, with this provider at this time: Yes The last office visit in the department: 07-23-23 Does the patient have a future office visit with this provider/department: No Requested Prescriptions Pending Prescriptions Disp Refills Atenolol-Chlorthalidone 100-25 mg per tablet 30 tablet 5 Sig: Take 1 tablet by mouth once daily. minoxidil (LONITEN) 10 mg tablet 60 tablet 5 Sig: Take 2 tablets by mouth once daily. Suzi Wyman September 05, 2024 10:30 AM [facility]10-04-2024 Telephone encounter Note* Telephone Encounter - Pierce Wells MD - 08/11/2024 3:59 PM EDT OK to refill as ordered Pierce Wells MD [facility]10-04-2024 Miscellaneous Notes* Telephone Encounter - Pierce Wells MD - 08/11/2024 3:59 PM EDT OK to refill as ordered Pierce Wells MD * Telephone Encounter - Pepper Smith - 08/11/2024 3:40 PM EDT Prescription Refill Information The patient has been identified by name and date of : Yes Caregiver verified no other encounters exist for this prescription request: Yes Caregiver confirmed with patient/requestor that no other refills are due, in the near future, with this provider at this time: Yes The last office visit in the department: 07/2023 Does the patient have a future office visit with this provider/department: No I updated insurance but was unable to arrange a physical with spouse due 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 Please advise spouse. Requested Prescriptions Pending Prescriptions Disp Refills finasteride (PROSCAR) 5 mg tablet 30 tablet 11 Sig: Take 1 tablet by mouth once daily. Pepper Be August 11, 2024 3:40 PM documented in this encounterCos[facility]10-04-2024 Telephone encounter Note * Telephone Encounter - Pepper Smith - 08/11/2024 3:40 PM EDT Prescription Refill Information The patient has been identified by name and date of : Yes Caregiver verified no other encounters exist for this prescription request: Yes Caregiver confirmed with patient/requestor that no other refills are due, in the near future, with this provider at this time: Yes The last office visit in the department: 07/2023 Does the patient have a future office visit with this provider/department: No I updated insurance but was unable to arrange a physical with spouse due 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 Please advise spouse. Requested Prescriptions Pending Prescriptions Disp Refills finasteride (PROSCAR) 5 mg tablet 30 tablet 11 Sig: Take 1 tablet by mouth once daily. Pepper Schulz Pss August 11, 2024 3:40 PM [facility]07-23-2024 Telephone encounter Note* Telephone Encounter - Pierce Wells MD - 05/30/2024 4:39 PM EDT OK to refill as ordered Pierce Wells MD [facility]07-23-2024 Miscellaneous Notes* Telephone Encounter - Pierce Wells MD - 05/30/2024 4:39 PM EDT OK to refill as ordered Pierce Wells MD * Telephone Encounter - Svetlana Head LPN - 05/30/2024 4:19 PM EDT The patient has been identified by name and date of : Yes Caregiver verified no other encounters exist for this prescription request: Yes Caregiver confirmed with patient/requestor that no other refills are due, in the near future, with this provider at this time: Yes The last office visit in the department: 07/23/2023 Does the patient have a future office visit with this provider/department: Yes 07/24/2024 Requested Prescriptions Pending Prescriptions Disp Refills NIFEdipine ER (PROCARDIA XL) 30 mg 24 hr tablet 30 tablet 5 Sig: Take 1 tablet by mouth once daily. ibuprofen (MOTRIN) 800 mg tablet 60 tablet 5 Sig: TAKE ONE TABLET BY MOUTH TWICE DAILY WITH MEALS NEEDED guanFACINE (TENEX) 1 mg tablet 30 tablet 5 Sig: Take 1 tablet by mouth daily at bedtime. losartan (COZAAR) 100 mg tablet 30 tablet 11 Sig: Take 1 tablet by mouth once daily. Svetlana Head LPN May 30, 2024 4:21 PM documented in this encounterCoshocton [facility]07-23-2024 Telephone encounter Note * Telephone Encounter - Svetlana eHad LPN - 05/30/2024 4:19 PM EDT The patient has been identified by name and date of : Yes Caregiver verified no other encounters exist for this prescription request: Yes Caregiver confirmed with patient/requestor that no other refills are due, in the near future, with this provider at this time: Yes The last office visit in the department: 07/23/2023 Does the patient have a future office visit with this provider/department: Yes 07/24/2024 Requested Prescriptions Pending Prescriptions Disp Refills NIFEdipine ER (PROCARDIA XL) 30 mg 24 hr tablet 30 tablet 5 Sig: Take 1 tablet by mouth once daily. ibuprofen (MOTRIN) 800 mg tablet 60 tablet 5 Sig: TAKE ONE TABLET BY MOUTH TWICE DAILY WITH MEALS NEEDED guanFACINE (TENEX) 1 mg tablet 30 tablet 5 Sig: Take 1 tablet by mouth daily at bedtime. losartan (COZAAR) 100 mg tablet 30 tablet 11 Sig: Take 1 tablet by mouth once daily. Svetlana Head LPN May 30, 2024 4:21 PM [facility]05-02-2024 Telephone encounter Note* Telephone Encounter - Angela Ojeda RN - 03/09/2024 8:09 AM EDT Pts called and is notified of providers message. Pt voices understanding. Angela Ojeda RN [facility]05-02-2024 Miscellaneous Notes* Telephone Encounter - Angela Ojeda RN - 03/09/2024 8:09 AM EDT Pts called and is notified of providers message. Pt voices understanding. Angela Ojeda RN * Telephone Encounter - Yaquelin Ceron APRN.CNP - 03/08/2024 7:52 PM EDT The following approved medication requests have been transmitted electronically. Requested Prescriptions Pending Prescriptions Disp Refills escitalopram oxalate (LEXAPRO) 10 mg tablet 30 tablet 5 Sig: Take 1 tablet by mouth once daily. Yaquelin Ceron APRN.CNP * Telephone Encounter - Angela Ojeda RN - 03/08/2024 12:25 PM EDT Patient has been identified by name and date of : Yes, Provider Dr Wells Date 03/08/24 Time 1225. Spouse phones for refill(s): Requested Prescriptions Pending Prescriptions Disp Refills escitalopram oxalate (LEXAPRO) 10 mg tablet 30 tablet 3 Sig: Take 1 tablet by mouth once daily. Date of last office visit in primary care: 07/23/2023 Date of next office visit in primary care: 07/24/2024 Please advise. Thank you. Angela Ojeda RN. documented in this encounter[facility] Telephone encounter Note * Telephone Encounter - Yaquelin Ceron APRN.CNP - 03/08/2024 7:52 PM EDT The following approved medication requests have been transmitted electronically. Requested Prescriptions Pending Prescriptions Disp Refills escitalopram oxalate (LEXAPRO) 10 mg tablet 30 tablet 5 Sig: Take 1 tablet by mouth once daily. Yaquelin Ceron APRN.CNP [facility]05-01-2024 Telephone encounter Note* Telephone Encounter - Angela Ojeda RN - 03/08/2024 12:25 PM EDT Patient has been identified by name and date of : Yes, Provider Dr Wells Date 03/08/24 Time 1225. Spouse phones for refill(s): Requested Prescriptions Pending Prescriptions Disp Refills escitalopram oxalate (LEXAPRO) 10 mg tablet 30 tablet 3 Sig: Take 1 tablet by mouth once daily. Date of last office visit in primary care: 07/23/2023 Date of next office visit in primary care: 07/24/2024 Please advise. Thank you. Angela Ojeda RN. [place] [address]-04-2024 Miscellaneous Notes* Telephone Encounter - Yaquelin Ceron APRN.CNP - 02/10/2024 7:00 AM EDT The following approved medication requests have been transmitted electronically. Requested Prescriptions Pending Prescriptions Disp Refills minoxidil (LONITEN) 10 mg tablet 60 tablet 5 Sig: Take 2 tablets by mouth once daily. Atenolol-Chlorthalidone 100-25 mg per tablet 30 tablet 5 Sig: Take 1 tablet by mouth once daily. Yaquelin Ceron APRN.GATE TECHNICIAN * Telephone Encounter - Linda Wood LPN - 02/09/2024 4:33 PM EDT Patient has been identified by name and date of : Yes, Provider Dr. Wells Date 02/09/24 Time 4:35 [pm Spouse phones for refill(s): Requested Prescriptions Pending Prescriptions Disp Refills minoxidil (LONITEN) 10 mg tablet 60 tablet 5 Sig: Take 2 tablets by mouth once daily. Atenolol-Chlorthalidone 100-25 mg per tablet 30 tablet 5 Sig: Take 1 tablet by mouth once daily. Date of last office visit in primary care: 07/23/2023 Date of next office visit in primary care: 07/24/2024 No need to call pt. Thank you. Linda Wood LPN. documented in this encounterCos[facility]09-[facility]23 Instructions* Patient Instructions* Armani Leong APRN.MELIA - 07/23/2023 2:12 PM EDT Begin Lexapro 10 mg once daily. Begin Wellbutrin XL 150 mg daily. Start Proscar 5 mg daily. Continue with Tamusolin Trial starting Amlodipine 5 mg daily for blood pressure Get blood work Return stool kit documented in this encounterCoshocton [facility] Center09-15-2023 History of Present illness Narrative* Patricia Robbins MA - 07/23/2023 1:46 PM EDT BP Manual readin/98 Pulse: 72 LEFT arm LARGE cuff BP Nikolas Average: 168/78 Pulse: 69 RIGHT arm LARGE cuff 1. 178/80 Pulse: 72 2. 170/78 Pulse: 70 3. 169/77 Pulse: 71 4. 166/80 Pulse: 68 BP NIKOLAS AVERAGE: 168/78 Pulse: 69 * Armani Leong APRN.GATE TECHNICIAN - 07/23/2023 1:40 PM EDT Chief Complaint Patient presents with: Follow up HPI José Miguel Young Sr. is a 57 year old male who presents here today for Chronic Medical Conditions.follow up for HTN, Depression, GERD. Patient is here with . Needing refill of medications. Depression: Patient has been on Wellbutrin and Lexapro for many years. Started approximately 5 years ago with of daughter. States that he is doing better for the most part. Also remarks on a stressful prior job. He would like to slowly come off these medications. Patient has a complaint of left shoulder pain. Present for about 2 weeks. No trauma. 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 Feels like he overworked the joint. Pain is in the left anterior and posterior region and can radiate down towards the elbow and forearm. Upper left-sided back does have some pain would rotate head to the left. Remarks that he has not noticed a difference with Flomax 0.4 mg. Has been on this for an extended time period. Continues with nocturia associated with BPH. He does admit to polyuria during the daytime but admits he has been to drinking large amount of coffee, water and also soda. Blood pressure is elevated at today's visit. Patient states that his blood pressures always been elevated. At home he considers it normal if the systolic is around 160. 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 They allow this for him to continue driving. 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 Admits to some difficulty with eating healthy diet being on the road multiple days a week. Does have a complaint of daytime somnolence. Sometimes has to pan puller and take a nap. He was ordered a sleep study over a decade ago but never completed due to work demands. Depression Screening 08/03/2017 04/22/2018 07/22/2018 07/23/2023 PHQ-2 Score 0 0 5 0 PHQ-9 Score 0 3 19 - Depression screening tool completed and reviewed. Based on score and interview, patient is already diagnosed with depression. Screening tool discussed with patient, and I recommended no further intervention at this time. Past medical history, appointments, medications, allergies reviewed. EXAM: BP 168/78 Pulse 69 Temp 37.1 C (98.8 F) (Left Tympanic) Resp 20 Ht 171.5 cm (5' 7.5") Wt (!) 159.9 kg (352 lb 9.6 oz) SpO2 97% BMI 54.41 kg/m General Appearance: Well appearing, alert, in no acute distress, well-hydrated, well nourished. andMorbidly obese. Lungs: Lungs clear to auscultation. No wheezing, rhonchi, rales.. Heart: RRR without murmur, gallop, or rubs. No ectopy. Musculoskeletal: Moderate to severe tenderness of the left upper trapezius muscle. Shoulder: Location: Left Redness: No. Warmth: No. Tenderness to palpation: Yes; moderate AC joint tenderness, mild lateral tenderness, mild to moderate glenohumeral tenderness Swelling: No. Range of motion: decreased Empty can test: Positive Shaw: Positve ASSESSMENT/PLAN: 1. Essential hypertension - ICD9: 401.9, ICD10: I10 (primary diagnosis) - Uncontrolled - Continue current medications - Start amlodipine. Patient was on amlodipine for many years. Cannot remember at what dose caused leg swelling. Discussed with him that likely when he went to 10 mg. They would like to trial amlodipine 5 mg daily. - Recommend home blood pressure monitoring, to bring results to next visit - Encouraged sodium restriction, DASH or Mediterranean diet - Recommend regular aerobic exercise - COMP METABOLIC PANEL - CBC + DIFF - MINOXIDIL 10 MG TABLET 2. Reactive depression - ICD9: 300.4, ICD10: F32.9 -Would like to trial coming off of antidepressants. Start by decreasing to Lexapro 10 mg and Wellbutrin 150 mg daily. Can consider further reducing at future appointment. - ESCITALOPRAM 10 MG TABLET - WELLBUTRIN XL 150 MG 3. Screening for colon cancer - ICD9: V76.51, ICD10: Z12.11 - FECAL OCCULT BLOOD TEST 4. Elevated glucose - ICD9: 790.29, ICD10: R73.09 -History of elevated glucose in the past. Questioning some polyuria on a daily basis. Check hemoglobin A1c. - HGB A1C 5. Benign prostatic hyperplasia with nocturia - ICD9: 600.01, 788.43, ICD10: N40.1, R35.1 - add Proscar to his regimen. - FINASTERIDE 5 MG TABLET 6. Strain of left shoulder, initial encounter - ICD9: 840.9, ICD10: S46.912A -Likely overuse as there is no trauma. Demonstrated some home stretching with a band that can be performed for strengthening as he has difficult time getting to physical therapy. - METHYLPREDNISOLONE 4 MG TABLETS IN A DOSE PACK 7. Musculoskeletal disorder involving upper trapezius muscle - ICD9: 723.9, ICD10: M62.9 -Cannot take muscle relaxants. Trial Medrol Dosepak. - METHYLPREDNISOLONE 4 MG TABLETS IN A DOSE PACK 8. Gastroesophageal reflux disease without esophagitis - ICD9: 530.81, ICD10: K21.9 - OMEPRAZOLE 20 MG CAPSULE,DELAYED RELEASE Armani Leong APRN.CNP RTO in 1 months, sooner if needed. I spent a total of 40 minutes on the date of the service which included preparing to see the patient, [id number] patient care, completing clinical documentation, obtaining and/or reviewing separately obtained history, performing a medically appropriate examination, counseling and educating the pat ient/family/caregiver, and ordering medications, tests, or procedures. This note was partly generated using [employer] voice recognition dictation and may contain some misspelled or inaccurate words missed on review. documented in this encounterCoshoct[facility]07-20-2023 Miscellaneous Notes* Telephone Encounter - Armani Leong APRN.CNP - 05/27/2023 7:28 AM EDT The following approved medication requests have been transmitted electronically. Requested Prescriptions Pending Prescriptions Disp Refills Atenolol-Chlorthalidone 100-25 mg per tablet 30 tablet 2 Sig: Take 1 tablet by mouth once daily. omeprazole (PRILOSEC) 20 mg capsule 30 capsule 2 Sig: Take 1 capsule by mouth daily before breakfast. 1/2 hr before meal. minoxidil (LONITEN) 10 mg tablet 60 tablet 2 Sig: Take 2 tablets by mouth once daily. guanFACINE (TENEX) 1 mg tablet 30 tablet 2 Sig: Take 1 tablet by mouth daily at bedtime. buPROPion XL (WELLBUTRIN XL) 300 mg 24 hr tablet 30 tablet 2 Sig: Take 1 tablet by mouth once daily. escitalopram oxalate (LEXAPRO) 20 mg tablet 30 tablet 2 Sig: Take 1 tablet by mouth once daily. Armani Leong APRN.CNP * Telephone Encounter - Gabbie Chester - 05/26/2023 3:22 PM EDT Patient has been identified by name and date of : Yes Patient phones requesting refills as follows: Requested Prescriptions Pending Prescriptions Disp Refills Atenolol-Chlorthalidone 100-25 mg per tablet 30 tablet 2 Sig: Take 1 tablet by mouth once daily. omeprazole (PRILOSEC) 20 mg capsule 30 capsule 2 Sig: Take 1 capsule by mouth daily before breakfast. 1/2 hr before meal. minoxidil (LONITEN) 10 mg tablet 60 tablet 2 Sig: Take 2 tablets by mouth once daily. guanFACINE (TENEX) 1 mg tablet 30 tablet 2 Sig: Take 1 tablet by mouth daily at bedtime. buPROPion XL (WELLBUTRIN XL) 300 mg 24 hr tablet 30 tablet 2 Sig: Take 1 tablet by mouth once daily. escitalopram oxalate (LEXAPRO) 20 mg tablet 30 tablet 2 Sig: Take 1 tablet by mouth once daily. [place]-07/03/22 Labs-07/03/22 NOV-07/23/23 RX INSTRUCTIONS: Patient aware RX will be sent to pharmacy. No need to notify patient. Gabbie Chester documented in this encounterCoshocton [facility]02-04-2023 Miscellaneous Notes* Telephone Encounter - Pierce Wells MD - 12/12/2022 11:42 AM EST OK to refill as ordered Pierce Wells MD * Telephone Encounter - Gayathri Gray - 12/12/2022 9:44 AM EST Patient has been identified by name and date of : Yes, Provider Russell Date 12-12-2022 Time 9:45 am Last office visit in this department: 07/03/2022 Labs-07/03/22 NOV-none med filled 05/20/22 RX INSTRUCTIONS: Patient aware RX will be sent to pharmacy. No need to notify patient. Patient phones requesting refills as follows: Requested Prescriptions Pending Prescriptions Disp Refills ibuprofen (MOTRIN) 800 mg tablet 60 tablet 5 Sig: TAKE ONE TABLET BY MOUTH TWICE DAILY WITH MEALS NEEDED Please review and advise. Gayathri Gray documented in this encounterCoshocton [facility] Center09-01-2022 Miscellaneous Notes* Telephone Encounter - Danita Marquez LPN - 07/09/2022 9:16 AM EDT Patient notified of results, verbalizes understanding of instructions. Danita Marquez LPN * Telephone Encounter - Yaquelin Ceron APRN.CNP - 07/08/2022 6:55 PM EDT Can you please call the patient and let him know that I reviewed his lab results. Labs were relatively normal, A1c was 5.4, no signs of diabetes. Cholesterol and PSA were normal. AST was mildly elevated, which is a liver enzyme. I would recommend watching Tylenol and alcohol use in the diet. And try to decrease any processed foods. We can continue to monitor this. No further testing needed at this time. Please let me know if he has any questions. Thank you. Yaqulein Ceron APRN.MELIA documented in this encounterCoshocton [facility] Center08-27-2022 Miscellaneous Notes* Telephone Encounter - Renuka Carr RN - 07/04/2022 6:17 PM EDT Reason for call: Itchy Lump at injection site began today. TDap Injection yesterday. Outcome: Home care advised. Reviewed care advice and when to call back. Reason for Disposition Tetanus-diphtheria (Td or Tdap) vaccine reaction: painless lump at injection site Answer Assessment - Initial Assessment Questions 1. SYMPTOMS: Lump at injection site. 2. ONSET: Vaccine was given yesterday 07/03/2022 3. SEVERITY: No pain just itching and a lump 4. FEVER: Denies fever or redness 5. IMMUNIZATIONS GIVEN: TDap 6. PAST REACTIONS: Has not had reactions to Tdap in the past 7. OTHER SYMPTOMS: Localized itching and swelling. No redness, pain or fever. Protocols used: Immunization [id number] documented in this encounterCoshocton [facility] Center08-05-2022 Miscellaneous Notes* Telephone Encounter - Danita Marquez LPN - 06/12/2022 12:52 PM EDT Patient notified of lab orders, verbalizes understanding of instructions. Danita Marquez LPN * Telephone Encounter - Yaquelin Ceron APRN.CNP - 06/12/2022 12:45 PM EDT Lab orders are in from last office visit. They at the end of this month. He should fast 8-10hours prior. He may have black coffee and water. Please let me know if he has any questions. Thank you. Yaquelin Ceron APRN.GATE TECHNICIAN documented in this encounterCoshocton Regional Medical Center06-27-2022 Miscellaneous Notes* Telephone Encounter - Ruby Jesus Romero - 05/04/2022 4:17 PM EDT The following approved medication requests have been transmitted electronically. Signed Prescriptions Disp Refills Atenolol-Chlorthalidone 100-25 mg per tablet 30 tablet 11 Sig: Take 1 tablet by mouth once daily. VÍCTOR: No Authorizing Provider: PIERCE WELLS omeprazole (PRILOSEC) 20 mg capsule 30 capsule 11 Sig: Take 1 capsule by mouth daily before breakfast. 1/2 hr before meal. VÍCTOR: No Authorizing Provider: PIERCE WELLS tamsulosin (FLOMAX) 0.4 mg 30 capsule 11 Sig: Take 1 capsule by mouth daily at bedtime. VÍCTOR: No Authorizing Provider: PIERCE WELLS minoxidil (LONITEN) 10 mg tablet 60 tablet 11 Sig: Take 2 tablets by mouth once daily. VÍCTOR: No Authorizing Provider: PIERCE WELLS guanFACINE (TENEX) 1 mg tablet 30 tablet 12 Sig: Take 1 tablet by mouth daily at bedtime. VÍCTOR: No Authorizing Provider: PIERCE WELLS Ma * Telephone Encounter - Pierce Wells MD - 05/04/2022 4:05 PM EDT OK to refill as ordered Pierce Wells MD * Telephone Encounter - Ariela Mott Pss - 05/04/2022 3:58 PM EDT Patient has been identified by name and date of : Yes Pending Prescriptions Disp Refills ATENOLOL 100 MG-CHLORTHALIDONE 25 MG TABLET 30 tablet 11 Sig: Take 1 tablet by mouth once daily. VÍCTOR: No OMEPRAZOLE 20 MG CAPSULE,DELAYED RELEASE 30 capsule 11 Sig: Take 1 capsule by mouth daily before breakfast. 1/2 hr before meal. VÍCTOR: No TAMSULOSIN 0.4 MG CAPSULE 30 capsule 11 Sig: Take 1 capsule by mouth daily at bedtime. VÍCTOR: No MINOXIDIL 10 MG TABLET 60 tablet 11 Sig: Take 2 tablets by mouth once daily. VÍCTOR: No GUANFACINE 1 MG TABLET 30 tablet 12 Sig: Take 1 tablet by mouth daily at bedtime. VÍCTOR: No RX INSTRUCTIONS: Patient aware RX will be sent to pharmacy. No need to notify patient. Ariela Mott Pss documented in this encounterCoshocton [facility] Center03-28-2022 Miscellaneous Notes* Telephone Encounter - Pierce Wells MD - 02/02/2022 11:04 AM EDT OK to refill as ordered Pierce Wells MD * Telephone Encounter - Danita Marquez LPN - 02/02/2022 10:50 AM EDT Patient phones requesting refills as follows: Pending Prescriptions Disp Refills ESCITALOPRAM 20 MG TABLET 30 tablet 0 Sig: Take 1 tablet by mouth once daily VÍCTOR: Yes [place]-07/03/21 Labs-07/03/21 NOV-none med filled 08/04/21 Please review and advise. Danita Marquez LPN documented in this encounterCoshocton [facility] Center06-10-2021 History of Present illness Narrative* Elena Meléndez RT(R) - 04/17/2021 10:00 AM EDT Radiology Service Progress Note PATIENT NAME: José Miguel Young Sr. DATE OF SERVICE: April 17, 2021 TIME: 10:28 AM PATIENT IDENTITY VERIFICATION COMPLETED USING TWO (2) IDENTIFIERS: Name and Date of confirmedby patient verbally. FALL SCREENING: Has the patient had 2 falls in the last year or 1 fall with injury or currently using an Ambulatory Assistive Device (Walker, Cane, Wheelchair, Crutches, etc.)? No PATIENT GENDER DATA: Male PATIENT RELEVANT IMPLANT DATA REVIEWED: Not Applicable RADIOLOGY DEPARTMENT: General X-ray: Exam(s) Completed: Lower Extremity X- Ray(s): Knee, AP / Lat / Tunne / Merchant Left and Wt. Bearing PERIPHERAL IV DATA: Not applicable SIGNED BY: RT Eugene(R) April 17, 2021 10:28 AM documented in this encounterCoshocton [facility] Center02-24-2011 History of Past illness Narrative* Problem Noted Date Resolved Date Tobacco use disorder 01/01/2011 06/29/2017 documented as of this encounter (statuses as of 02/02/2022) [facility] of [facility] illness Narrative* Problem Noted Date Resolved Date Tobacco use disorder 01/01/2011 06/29/2017 documented as of this encounter (statuses as of 05/04/2022) [address]24-2011 History of Past illness Narrative* Problem Noted Date Resolved Date Tobacco use disorder 01/01/2011 06/29/2017 documented as of this encounter (statuses as of 05/26/2022) [address]24-2011 History of Past illness Narrative* Problem Noted Date Resolved Date Tobacco use disorder 01/01/2011 06/29/2017 documented as of this encounter (statuses as of 06/15/2022) [address]24-2011 History of Past illness Narrative* Problem Noted Date Resolved Date Tobacco use disorder 01/01/2011 06/29/2017 documented as of this encounter (statuses as of 07/04/2022) [address]24-2011 History of Past illness Narrative* Problem Noted Date Resolved Date Tobacco use disorder 01/01/2011 06/29/2017 documented as of this encounter (statuses as of 07/09/2022) [address]24-2011 History of Past illness Narrative* Problem Noted Date Resolved Date Tobacco use disorder 01/01/2011 06/29/2017 documented as of this encounter (statuses as of 12/14/2022) [address]24-2011 History of Past illness Narrative* Problem Noted Date Diagnosed Date Resolved Date Tobacco use disorder 01/01/2011 017 documented as of this encounter (statuses as of 05/27/2023) [address]24-2011 History of Past illness Narrative* Problem Noted Date Diagnosed Date Resolved Date Tobacco use disorder 01/01/2011 017 documented as of this encounter (statuses as of 07/23/2023) [address]24-2011 History of Past illness Narrative* Problem Noted Date Diagnosed Date Resolved Date Tobacco use disorder 01/01/2011 017 documented as of this encounter (statuses as of 02/11/2024) [facility] Center[facility]ult note Author Savanna Soriano [facility] Note Date/Time March 05, 2025 3:0 9pm [facility] Medical Records Department [address] [place] [address] Counseling Note - Pharmacy 03/05/25 1507 MR#: [id number] Acct: [id number] Name: JOSÉ MIGUEL YOUNG . Rep #: [id number] : 1965 59 From: Savanna Soriano PCP: Dr. Pierce Wells MD Status:AD M IN Y [facility] has performed discharge medication reconciliation and counseling for this patient. 1. Aspirin 81mg PO daily - stop aspirin 325mg 2. Atenolol 100mg PO daily - stop atenolol/chlorthalidone 3. Apixaban 5mg PO BID 4. Furosemide 20mg PO daily PRN edema The patient's discharge medication list was reviewed for discrepancies and discrepancies were resolved. The patient was counseled on the following discharge medications and changes in medications for homegoing were reviewed. The Reason for Use, instructions for use, and potential side effects were reviewed for all new medications. The patient's questions regarding all of their medications were answered. The patient was able to verbally demonstrate an understanding of their dischargemedications. Patient counseled by pharmacy helper, Omega. Medications at Discharge Home Medications guanfacine 1 mg tablet 1 tablet PO QPM BLOOD PRESSURE 30 days ##30 05/09/18 escitalopram oxalate 20 mg tablet 20 mg PO DAILY depression 01/29/19 minoxidil 10 mg tablet 20 mg PO DAILY HAIR GROWTH 09/26/19 finasteride 5 mg tablet 5 mg PO QPM 03/02/25 losartan 100 mg tablet 100 mg PO DAILY 03/02/25 nifedipine 30 mg tablet,extended release 24 hr 30 mg PO DAILY 03/02/25 omeprazole 20 mg capsule,delayed release 20 mg PO DAILY 03/02/25 tamsulosin 0.4 mg capsule 0.4 mg PO QHS 03/02/25 apixaban 5 mg tablet (Eliquis) 5 mg PO BID 30 days #60 tabs 03/05/25 aspirin 81 mg chewable tablet 81 mg PO DAILY@0800 30 days #30 tabs 03/05/25 atenolol 100 mg tablet 100 mg PO DAILY 30 days #30 tabs 03/05/25 furosemide 20 mg tablet (Lasix) 20 mg PO DAILY PRN edema #30 tabs 03/05/25 03/05/25 1509 <Electronically signed by Savanna Soriano> Date _ Savanna Cordon Signature (if applicable): Date CC: ~ Signed [facility] Work Phone: Discharge summary Author Jostin Arriaza [facility] Note Date/Time March 05, 2025 2:4 8pm [facility] Medical Records Department [address] [place] [address] Instructions for Home/Discharge Instructions 03/05/25 1445 MR#: [id number] Acct: [id number] Name: JOSÉ MIGUEL YOUNG . Rep #: [id number] : 1965 59 From: Jostin castro DO PCP: Dr. Pierce Wells MD Status:AD M IN Discharge Instructions Diet Discharge Diet: 2000 Calorie Control Diet and 4000 mg Sodium Diet DC O2, CPAP, BIPAP needs Home O2 Discharge instructions: No Dressing / Incision Discharge Activity: No Restrictions Follow Up Care Test Results: Test results from this visit will be discussed in further detail at your follow- up appointment, if applicable. Discharge Plan Admission Admit Date/Time: 03/02/25 22:46 Primary Reason for Your Visit: Shortness of breath Attending Provider: Jostin Arriaza Primary Care Provider: Pierce Wells Consulting Providers: Thierno Campos; Pierce Florian Instructions Additional Instructions / Restrictions: Please take medications as noted below. Importantly, take Eliquis twice daily for your A-fib and decrease dose of aspirin to 81 mg daily (baby aspirin). TakeLasix up to once daily as needed. Follow-up in the cardiology office in the next few weeks. Discharge Orders/Prescriptions Prescriptions: New atenolol 100 mg Tablet 100 mg PO DAILY 30 Days Qty: 30 2RF aspirin 81 mg Tablet,Chewable 81 mg PO DAILY@0800 30 Days Qty: 30 2RF Eliquis 5 mg Tablet 5 mg PO BID 30 Days Qty: 60 2RF furosemide [Lasix] 20 mg tablet 20 mg PO DAILY PRN (Reason: edema) Qty: 30 2RF Continued guanfacine 1 mg tablet 1 tablet PO QPM 30 Days Qty: 30 Patient Comments: escitalopram oxalate 20 MG tablet 20 mg PO DAILY minoxidil 10 MG tablet 20 mg PO DAILY Patient Comments: TAKE 2 TABLETS BY MOUTH ONCE DAILY Rx Instructions: nifedipine 30 mg tablet extended release 24hr 30 mg PO DAILY tamsulosin 0.4 mg capsule 0.4 mg PO QHS omeprazole 20 mg capsule,delayed release(DR/EC) 20 mg PO DAILY losartan 100 mg tablet 100 mg PO DAILY finasteride 5 mg tablet 5 mg PO QPM Discontinued atenolol-chlorthalidone 1 TAB tablet 1 tab PO DAILY Rx Instructions: aspirin 325 MG tablet 325 mg PO DAILY@0800 ibuprofen 800 mg tablet 800 mg PO BID PRN PRN (Reason: fever or pain) Referrals / Follow Up: Sagrario Casanova MD [Med Staff - Active Staff] - Pierce Wells MD [Primary Care Provider] - Disposition Disposition (needs filled in before D/C Order can be placed): Home, Self Care 03/05/25 9588<Electronically signed by Jostin Arriaza DO>Jostin Arriaza DO CC: Dr. Thierno Campos DO; Dr. Pierce Wells MD; Dr. Pierce Florian DO ~ Signed [facility] Work Phone: Evaluation note* Diagnosis Reactive depression Dysthymic disorder documented in this encounter [facility] note* Diagnosis Gastroesophageal reflux disease without esophagitis Esophageal reflux Benign prostatic hyperplasia with nocturia Essential hypertension Unspecified essential hypertension documented in this encounter [facility] note* Diagnosis Chronic bilateral low back pain without sciatica documented in this encounter [facility] note* Diagnosis Gastroesophageal reflux disease without esophagitis Esophageal reflux Essential hypertension Unspecified essential hypertension Reactive depression Dysthymic disorder documented in this encounter [facility] note* Diagnosis Essential hypertension- Primary Unspecified essential hypertension Reactive depression Dysthymic disorder Screening for colon cancer Special screening for malignant neoplasms, colon Elevated glucose Other abnormal glucose Benign prostatic hyperplasia with nocturia Strain of left shoulder, initial encounter Musculoskeletal disorder involving upper trapezius muscle Gastroesophageal reflux disease without esophagitis Esophageal reflux documented in this [facility]* Diagnosis Essential hypertension Unspecified essential hypertension documented in this [facility]* Diagnosis Reactive depression Dysthymic disorder documented in this encounter [facility] note* Diagnosis Reactive depression Dysthymic disorder documented in this encounter [facility] note* Diagnosis Essential hypertension Unspecified essential hypertension documented in this encounter [facility] note* Diagnosis Gastroesophageal reflux disease without esophagitis Esophageal reflux documented in this encounter [facility] note* Diagnosis Chronic bilateral low back pain without sciatica Essential hypertension Unspecified essential hypertension documented in this encounter [facility] note* Diagnosis Conjunctivitis- Primary Conjunctivitis, unspecified HYPERTENSION NOS Unspecified essential hypertension Knee injury, left, initial encounter documented in this encounter [facility] note* Diagnosis Conjunctivitis- Primary Conjunctivitis, unspecified HYPERTENSION NOS Unspecified essential hypertension Benign prostatic hyperplasia with nocturia documented in this encounter [facility] note* Diagnosis Conjunctivitis- Primary Conjunctivitis, unspecified HYPERTENSION NOS Unspecified essential hypertension Reactive depression Dysthymic disorder Wellness examination- Primary Essential hypertension Unspecified essential hypertension Reactive depression Dysthymic disorder Benign prostatic hyperplasia with nocturia Gastroesophageal reflux disease without esophagitis Esophageal reflux documented in this encounter [facility] note* Diagnosis Conjunctivitis- Primary Conjunctivitis, unspecified HYPERTENSION NOS Unspecified essential hypertension Essential hypertension Unspecified essential hypertension Wellness examination- Primary Essential hypertension Unspecified essential hypertension Reactive depression Dysthymic disorder Benign prostatic hyperplasia with nocturia Gastroesophageal reflux disease without esophagitis Esophageal reflux documented in this encounter [facility] note* Diagnosis Conjunctivitis- Primary Conjunctivitis, unspecified HYPERTENSION NOS Unspecified essential hypertension Wellness examination- Primary Essential hypertension Unspecified essential hypertension Reactive depression Dysthymic disorder Benign prostatic hyperplasia with nocturia Gastroesophageal reflux disease without esophagitis Esophageal reflux Encounter for immunization Need for other specified prophylactic vaccination against single bacterial disease Screening for colon cancer Special screening for malignant neoplasms, colon documented in this encounter [facility] note* Diagnosis Conjunctivitis- Primary Conjunctivitis, unspecified HYPERTENSION NOS Unspecified essential hypertension Acute cough- Primary Influenza Influenza with other respiratory manifestations documented in this encounter [facility] note* Diagnosis Conjunctivitis- Primary Conjunctivitis, unspecified HYPERTENSION NOS Unspecified essential hypertension Atrial fibrillation, unspecified type (HCC)- Primary documented in this encounter [facility] note* Diagnosis Conjunctivitis- Primary Conjunctivitis, unspecified HYPERTENSION NOS Unspecified essential hypertension Heart failure, unspecified HF chronicity, unspecified heart failure type (HCC)- Primary Reactive depression Dysthymic disorder Essential hypertension Unspecified essential hypertension Atrial fibrillation, unspecified type (HCC) Chronic bilateral low back pain without sciatica documented in this encounter [facility] note* Diagnosis Conjunctivitis- Primary Conjunctivitis, unspecified HYPERTENSION NOS Unspecified essential hypertension Heart failure, unspecified HF chronicity, unspecified heart failure type (HCC)- Primary Atrial fibrillation, unspecified type (HCC) Essential hypertension Unspecified essential hypertension Benign prostatic hyperplasia with nocturia Chronic right-sided low back pain without sciatica Reactive depression Dysthymic disorder documented in this encounter [facility] note* Diagnosis Conjunctivitis- Primary Conjunctivitis, unspecified HYPERTENSION NOS Unspecified essential hypertension Chronic right-sided low back pain without sciatica documented in this encounter [facility] note* Diagnosis Conjunctivitis- Primary Conjunctivitis, unspecified HYPERTENSION NOS Unspecified essential hypertension Gastroesophageal reflux disease without esophagitis Esophageal reflux Essential hypertension Unspecified essential hypertension documented in this encounter [facility] note* Diagnosis Conjunctivitis- Primary Conjunctivitis, unspecified HYPERTENSION NOS Unspecified essential hypertension Heart failure, unspecified HF chronicity, unspecified heart failure type (HCC)- Primary Atrial fibrillation, unspecified type (HCC) Snoring Other dyspnea and respiratory abnormality Fatigue, unspecified type documented in this encounter [facility] note* Diagnosis Conjunctivitis- Primary Conjunctivitis, unspecified HYPERTENSION NOS Unspecified essential hypertension Chronic right-sided low back pain without sciatica- Primary Chronic bilateral low back pain without sciatica- Primary Reactive depression Dysthymic disorder documented in this encounter [facility] note* Diagnosis Conjunctivitis- Primary Conjunctivitis, unspecified HYPERTENSION NOS Unspecified essential hypertension Chronic bilateral low back pain without sciatica- Primary Reactive depression Dysthymic disorder Essential hypertension Unspecified essential hypertension Primary osteoarthritis of both knees Primary localized osteoarthrosis, lower leg Food insecurity documented in this encounter [facility] note* Diagnosis Conjunctivitis- Primary Conjunctivitis, unspecified HYPERTENSION NOS Unspecified essential hypertension Primary osteoarthritis of both knees Primary localized osteoarthrosis, lower leg documented in this encounter [facility] Discharge instructions Additional Instructions Follow-up with your PCP to have your potassium and magnesium levels rechecked, return for any worsening symptoms. Stay well-hydrated.[facility] Work Phone: Reason for referral (narrative)No reason for referral information availableWWayne [facility] Work Phone: Reason for visit Narrative* Diagnostic Procedure Only (Routine) - Closed Specialty Diagnoses / Procedures Referred By Contac t Referred To Contact XR IMAGING Diagnoses Chronic right-sided low back pain without sciatica Procedures XR LUMBAR GENERAL 3V AP/LAT/L5-S1 RADEX SPINE LUMBOSACRAL 2/3 VIEWS Armani Leong APRN.[employer]ATE TECHNICIAN [address] [place] [address] Phone: tel: fax: [place] [phone] Referral ID Status Reason Start Date Expiration Date V isits Requested Visits Authorized [id number] Closed Auto-Generate d Referral 06/04/2025 07/04/2026 1 1 [facility] for visit Narrative* Diagnostic Procedure Only (Routine) - Closed Specialty Diagnoses / Procedures Referred By Contac t Referred To Contact XR IMAGING Diagnoses Primary osteoarthritis of both knees Procedures XR KNEE GENERAL 4V AP BOTH/PA BOTH/LAT/MERC BILATERAL RADIOLOGIC EXAM KNEE COMPLETE 4/MORE VIEWS Armani Leong, JOELLE.GATE TECHNICIAN [address] [place] [address] Phone: tel: fax: [place] [phone] Referral ID Status Reason Start Date Expiration Date V isits Requested Visits Authorized [id number] Closed Auto-Generate d Referral 07/23/2025 08/22/2026 1 1 [facility] Advance Directives No Advanced Directives Records FoundDocuments on File Type Date Recorded Patient Assistant Case Manager Expl anation Advance Directive(s) 04/04/2019 12:01 PM Advance Directive Response Recorded Date/ Time Do you have a Healthcare Power of Streetcar Repairer? No March 02, 2025 11:04pm Advance Directive Response Recorded Date/ Time Do you have a Healthcare Power of Streetcar Repairer? No March 18, 2025 7:44pm Do you have a Healthcare Power of Streetcar Repairer? No March 02, 2025 11:04pm Advance Directive Response Recorded Date/ Time Do you have a Healthcare Power of Streetcar Repairer? No March 18, 2025 10:02pm Do you have a Healthcare Power of Streetcar Repairer? No March 02, 2025 11:04pm Advance Directive Response Recorded Date/ Time Do you have a Healthcare Power of Streetcar Repairer? No March 18, 2025 10:02pm Do you have a Healthcare Power of Streetcar Repairer? No March 02, 2025 11:04pm Do you have a Healthcare Power of Streetcar Repairer? No March 25, 2025 4:43pm Advance Directive Response Recorded Date/ Time Do you have a Healthcare Power of Streetcar Repairer? No March 18, 2025 10:02pm Do you have a Healthcare Power of Streetcar Repairer? No March 02, 2025 11:04pm Do you have a Healthcare Power of Streetcar Repairer? No March 25, 2025 4:43pm Advance Directives on File No May 16, 2025 11:31am Living Will No May 16, 2025 1 1:31am Do you have a Healthcare Power of Streetcar Repairer? No May 16, 2025 11:31am Advance Directives No May 16 11:31am Chief Complaint and Reason for Visit Chief Complaint Admit Date AE CHR, ACUTE BRONCHOSPASM, OHS AND Apri l 2024 10:46pm AE CHR, ACUTE BRONCHOSPASM, OHS AND Apri l 2024 11:11am AE CHR, ACUTE BRONCHOSPASM, OHS AND Apri l 2024 5:04pm Reason for Visit Admit Date Abdominal wall cellulitis March 02 10:46pm Cardiomegaly March 02, 2025 10: 46pm CHF (congestive heart failure) February 10:46pm D-dimer, elevated March 02, 2025 10: 46pm Hyperglycemia March 02, 2025 10: 46pm Hypoxia March 02, 2025 10: 46pm Lymphedema March 02, 2025 10: 46pm Obesity hypoventilation syndrome February 072024 10:46pm Pericardial effusion March 02, 2025 10 :46pm Respiratory insufficiency March 02 10:46pm Morbid obesity March 02, 2025 10: 46pm Chief Complaint Admit Date AE CHR, ACUTE BRONCHOSPASM, OHS AND Apri l 2024 10:46pm AE CHR, ACUTE BRONCHOSPASM, OHS AND Apri l 2024 11:11am AE CHR, ACUTE BRONCHOSPASM, OHS AND Apri l 2024 5:04pm AE CHR, ACUTE BRONCHOSPASM, OHS AND Apri l 2024 2:46pm HYPERTENSIVE URGENCY WITH OHS AND CHRONI C HYPOXIA March 18, 2025 9:17pm Reason for Visit Admit Date Obesity hypoventilation syndrome February 072024 10:46pm Abdominal wall cellulitis March 02 10:46pm Cardiomegaly March 02, 2025 10: 46pm CHF (congestive heart failure) February 10:46pm D-dimer, elevated March 02, 2025 10: 46pm Hyperglycemia March 02, 2025 10: 46pm Hypoxia March 02, 2025 10: 46pm Pericardial effusion March 02, 2025 10 :46pm Respiratory insufficiency March 02 10:46pm Lymphedema March 02, 2025 10: 46pm Morbid obesity March 02, 2025 10: 46pm Dyspnea March 18, 2025 9:17p m Hypertensive urgency March 18, 2025 9:17 pm Morbid obesity with BMI of 50.0-59.9, ad ult March 18, 2025 9:17pm Obesity hypoventilation syndrome March 9:17pm Chief Complaint Admit Date AE CHR, ACUTE BRONCHOSPASM, OHS AND Apri l 2024 10:46pm AE CHR, ACUTE BRONCHOSPASM, OHS AND Apri l 2024 11:11am AE CHR, ACUTE BRONCHOSPASM, OHS AND Apri l 2024 5:04pm AE CHR, ACUTE BRONCHOSPASM, OHS AND Apri l 2024 2:46pm HYPERTENSIVE URGENCY WITH OHS AND CHRONI C HYPOXIA March 18, 2025 9:17pm HYPERTENSIVE URGENCY WITH OHS AND CHRONI C HYPOXIA March 19, 2025 7:57am HYPERTENSIVE URGENCY WITH OHS AND CHRONI C HYPOXIA March 19, 2025 2:17pm HYPERTENSIVE URGENCY WITH OHS AND CHRONI C HYPOXIA March 20, 2025 7:49am HYPERTENSIVE URGENCY WITH OHS AND CHRONI C HYPOXIA March 21, 2025 8:12am HYPERTENSIVE URGENCY WITH OHS AND CHRONI C HYPOXIA March 22, 2025 2:52pm Reason for Visit Admit Date Obesity hypoventilation syndrome February 072024 10:46pm Abdominal wall cellulitis March 02 10:46pm Cardiomegaly March 02, 2025 10: 46pm CHF (congestive heart failure) February 10:46pm D-dimer, elevated March 02, 2025 10: 46pm Hyperglycemia March 02, 2025 10: 46pm Hypoxia March 02, 2025 10: 46pm Pericardial effusion March 02, 2025 10 :46pm Respiratory insufficiency March 02 10:46pm Lymphedema March 02, 2025 10: 46pm Morbid obesity March 02, 2025 10: 46pm (HFpEF) heart failure with preserved eje ction fraction March 19, 2025 2:17pm D-dimer, elevated March 19, 2025 2:17p m Hypertensive urgency March 19, 2025 2:17 pm Morbid obesity with BMI of 50.0-59.9, ad ult March 19, 2025 2:17pm Obesity hypoventilation syndrome March 2:17pm Respiratory insufficiency March 19, 2025 2:17pm Diastolic CHF, acute on chronic March 2:17pm Chief Complaint Admit Date AE CHR, ACUTE BRONCHOSPASM, OHS AND Apri l 2024 10:46pm AE CHR, ACUTE BRONCHOSPASM, OHS AND Apri l 2024 11:11am AE CHR, ACUTE BRONCHOSPASM, OHS AND Apri l 2024 5:04pm AE CHR, ACUTE BRONCHOSPASM, OHS AND Apri l 2024 2:46pm HYPERTENSIVE URGENCY WITH OHS AND CHRONI C HYPOXIA March 18, 2025 9:17pm HYPERTENSIVE URGENCY WITH OHS AND CHRONI C HYPOXIA March 19, 2025 7:57am HYPERTENSIVE URGENCY WITH OHS AND CHRONI C HYPOXIA March 19, 2025 2:17pm HYPERTENSIVE URGENCY WITH OHS AND CHRONI C HYPOXIA March 20, 2025 7:49am HYPERTENSIVE URGENCY WITH OHS AND CHRONI C HYPOXIA March 21, 2025 8:12am HYPERTENSIVE URGENCY WITH OHS AND CHRONI C HYPOXIA March 22, 2025 2:52pm DIARRHEA March 25, 2025 4:12p m Chief Complaint Admit Date AE CHR, ACUTE BRONCHOSPASM, OHS AND Apri l 2024 10:46pm AE CHR, ACUTE BRONCHOSPASM, OHS AND Apri l 2024 11:11am AE CHR, ACUTE BRONCHOSPASM, OHS AND Apri l 2024 5:04pm ELEVATED D DIMER March 05, 2025 10: 49am AE CHR, ACUTE BRONCHOSPASM, OHS AND Apri l 2024 2:46pm HYPERTENSIVE URGENCY WITH OHS AND CHRONI C HYPOXIA March 18, 2025 9:17pm HYPERTENSIVE URGENCY WITH OHS AND CHRONI C HYPOXIA March 19, 2025 7:57am HYPERTENSIVE URGENCY WITH OHS AND CHRONI C HYPOXIA March 19, 2025 2:17pm HYPERTENSIVE URGENCY WITH OHS AND CHRONI C HYPOXIA March 20, 2025 7:49am HYPERTENSIVE URGENCY WITH OHS AND CHRONI C HYPOXIA March 21, 2025 8:12am HYPERTENSIVE URGENCY WITH OHS AND CHRONI C HYPOXIA March 22, 2025 2:52pm DIARRHEA March 25, 2025 4:12p m S/P HOSP ([facility] 03/22) May 09, 2025 3:40p m Reason for Visit Admit Date Obesity hypoventilation syndrome February 072024 10:46pm Abdominal wall cellulitis March 02 10:46pm Cardiomegaly March 02, 2025 10: 46pm CHF (congestive heart failure) February 10:46pm D-dimer, elevated March 02, 2025 10: 46pm Hyperglycemia March 02, 2025 10: 46pm Hypoxia March 02, 2025 10: 46pm Pericardial effusion March 02, 2025 10 :46pm Respiratory insufficiency March 02 10:46pm Lymphedema March 02, 2025 10: 46pm Morbid obesity March 02, 2025 10: 46pm (HFpEF) heart failure with preserved eje ction fraction March 19, 2025 2:17pm D-dimer, elevated March 19, 2025 2:17p m Morbid obesity with BMI of 50.0-59.9, ad ult March 19, 2025 2:17pm Obesity hypoventilation syndrome March 2:17pm Diastolic CHF, acute on chronic March 2:17pm Hypertensive urgency March 19, 2025 2:17 pm Respiratory insufficiency March 19, 2025 2:17pm (HFpEF) heart failure with preserved eje ction fraction May 09, 2025 3:40pm Atrial fibrillation May 09, 2025 3:40p m HTN (hypertension) May 09, 2025 3:40p m Chief Complaint Admit Date AE CHR, ACUTE BRONCHOSPASM, OHS AND Apri l 2024 10:46pm AE CHR, ACUTE BRONCHOSPASM, OHS AND Apri l 2024 11:11am AE CHR, ACUTE BRONCHOSPASM, OHS AND Apri l 2024 5:04pm ELEVATED D DIMER March 05, 2025 10: 49am AE CHR, ACUTE BRONCHOSPASM, OHS AND Apri l 2024 2:46pm HYPERTENSIVE URGENCY WITH OHS AND CHRONI C HYPOXIA March 18, 2025 9:17pm HYPERTENSIVE URGENCY WITH OHS AND CHRONI C HYPOXIA March 19, 2025 7:57am HYPERTENSIVE URGENCY WITH OHS AND CHRONI C HYPOXIA March 19, 2025 2:17pm HYPERTENSIVE URGENCY WITH OHS AND CHRONI C HYPOXIA March 20, 2025 7:49am HYPERTENSIVE URGENCY WITH OHS AND CHRONI C HYPOXIA March 21, 2025 8:12am HYPERTENSIVE URGENCY WITH OHS AND CHRONI C HYPOXIA March 22, 2025 2:52pm DIARRHEA March 25, 2025 4:12p m S/P HOSP ([facility] 03/22) May 09, 2025 3:40p m afib May 16, 2025 10:59 am afib May 16, 2025 12:39 pm afib May 16, 2025 1:06p m Reason for Visit Admit Date Obesity hypoventilation syndrome February 072024 10:46pm Abdominal wall cellulitis March 02 10:46pm Cardiomegaly March 02, 2025 10: 46pm CHF (congestive heart failure) February 10:46pm D-dimer, elevated March 02, 2025 10: 46pm Hyperglycemia March 02, 2025 10: 46pm Hypoxia March 02, 2025 10: 46pm Pericardial effusion March 02, 2025 10 :46pm Respiratory insufficiency March 02 10:46pm Lymphedema March 02, 2025 10: 46pm Morbid obesity March 02, 2025 10: 46pm (HFpEF) heart failure with preserved eje ction fraction March 19, 2025 2:17pm D-dimer, elevated March 19, 2025 2:17p m Morbid obesity with BMI of 50.0-59.9, ad ult March 19, 2025 2:17pm Obesity hypoventilation syndrome March 2:17pm Diastolic CHF, acute on chronic March 2:17pm Hypertensive urgency March 19, 2025 2:17 pm Respiratory insufficiency March 19, 2025 2:17pm (HFpEF) heart failure with preserved eje ction fraction May 09, 2025 3:40pm Atrial fibrillation May 09, 2025 3:40p m HTN (hypertension) May 09, 2025 3:40p m Atrial fibrillation May 16, 2025 10:59 am Chief Complaint Admit Date AE CHR, ACUTE BRONCHOSPASM, OHS AND Apri l 2024 10:46pm AE CHR, ACUTE BRONCHOSPASM, OHS AND Apri l 2024 11:11am AE CHR, ACUTE BRONCHOSPASM, OHS AND Apri l 2024 5:04pm ELEVATED D DIMER March 05, 2025 10: 49am AE CHR, ACUTE BRONCHOSPASM, OHS AND Apri l 2024 2:46pm HYPERTENSIVE URGENCY WITH OHS AND CHRONI C HYPOXIA March 18, 2025 9:17pm HYPERTENSIVE URGENCY WITH OHS AND CHRONI C HYPOXIA March 19, 2025 7:57am HYPERTENSIVE URGENCY WITH OHS AND CHRONI C HYPOXIA March 19, 2025 2:17pm HYPERTENSIVE URGENCY WITH OHS AND CHRONI C HYPOXIA March 20, 2025 7:49am HYPERTENSIVE URGENCY WITH OHS AND CHRONI C HYPOXIA March 21, 2025 8:12am HYPERTENSIVE URGENCY WITH OHS AND CHRONI C HYPOXIA March 22, 2025 2:52pm DIARRHEA March 25, 2025 4:12p m S/P HOSP ([facility] 03/22) May 09, 2025 3:40p m afib May 16, 2025 10:59 am afib May 16, 2025 12:39 pm afib May 16, 2025 1:06p m 1 WK DCCV May 23, 2025 12:5 8pm Chief Complaint Admit Date AE CHR, ACUTE BRONCHOSPASM, OHS AND Apri l 2024 10:46pm AE CHR, ACUTE BRONCHOSPASM, OHS AND Apri l 2024 11:11am AE CHR, ACUTE BRONCHOSPASM, OHS AND Apri l 2024 5:04pm ELEVATED D DIMER March 05, 2025 10: 49am AE CHR, ACUTE BRONCHOSPASM, OHS AND Apri l 2024 2:46pm HYPERTENSIVE URGENCY WITH OHS AND CHRONI C HYPOXIA March 18, 2025 9:17pm HYPERTENSIVE URGENCY WITH OHS AND CHRONI C HYPOXIA March 19, 2025 7:57am HYPERTENSIVE URGENCY WITH OHS AND CHRONI C HYPOXIA March 19, 2025 2:17pm HYPERTENSIVE URGENCY WITH OHS AND CHRONI C HYPOXIA March 20, 2025 7:49am HYPERTENSIVE URGENCY WITH OHS AND CHRONI C HYPOXIA March 21, 2025 8:12am HYPERTENSIVE URGENCY WITH OHS AND CHRONI C HYPOXIA March 22, 2025 2:52pm DIARRHEA March 25, 2025 4:12p m S/P HOSP ([facility] 03/22) May 09, 2025 3:40p m afib May 16, 2025 10:59 am afib May 16, 2025 12:39 pm afib May 16, 2025 1:06p m 1 WK DCCV May 23, 2025 12:5 8pm EKG June 04, 2025 9:31 am Chief Complaint Admit Date AE CHR, ACUTE BRONCHOSPASM, OHS AND Apri l 2024 10:46pm AE CHR, ACUTE BRONCHOSPASM, OHS AND Apri l 2024 11:11am AE CHR, ACUTE BRONCHOSPASM, OHS AND Apri l 2024 5:04pm ELEVATED D DIMER March 05, 2025 10: 49am AE CHR, ACUTE BRONCHOSPASM, OHS AND Apri l 2024 2:46pm HYPERTENSIVE URGENCY WITH OHS AND CHRONI C HYPOXIA March 18, 2025 9:17pm HYPERTENSIVE URGENCY WITH OHS AND CHRONI C HYPOXIA March 19, 2025 7:57am HYPERTENSIVE URGENCY WITH OHS AND CHRONI C HYPOXIA March 19, 2025 2:17pm HYPERTENSIVE URGENCY WITH OHS AND CHRONI C HYPOXIA March 20, 2025 7:49am HYPERTENSIVE URGENCY WITH OHS AND CHRONI C HYPOXIA March 21, 2025 8:12am HYPERTENSIVE URGENCY WITH OHS AND CHRONI C HYPOXIA March 22, 2025 2:52pm DIARRHEA March 25, 2025 4:12p m S/P HOSP ([facility] 03/22) May 09, 2025 3:40p m afib May 16, 2025 10:59 am afib May 16, 2025 12:39 pm afib May 16, 2025 1:06p m 1 WK DCCV May 23, 2025 12:5 8pm EKG June 04, 2025 9:31 am 1 M FU/Needs EKG June 25, 2025 12 :53pm Reason for Visit Admit Date Obesity hypoventilation syndrome February 072024 10:46pm Abdominal wall cellulitis March 02 10:46pm Cardiomegaly March 02, 2025 10: 46pm CHF (congestive heart failure) February 10:46pm D-dimer, elevated March 02, 2025 10: 46pm Hyperglycemia March 02, 2025 10: 46pm Hypoxia March 02, 2025 10: 46pm Pericardial effusion March 02, 2025 10 :46pm Respiratory insufficiency March 02 10:46pm Lymphedema March 02, 2025 10: 46pm Morbid obesity March 02, 2025 10: 46pm D-dimer, elevated March 19, 2025 2:17p m Morbid obesity with BMI of 50.0-59.9, ad ult March 19, 2025 2:17pm Obesity hypoventilation syndrome March 2:17pm (HFpEF) heart failure with preserved eje ction fraction March 19, 2025 2:17pm Diastolic CHF, acute on chronic March 2:17pm Hypertensive urgency March 19, 2025 2:17 pm Respiratory insufficiency March 19, 2025 2:17pm (HFpEF) heart failure with preserved eje ction fraction May 09, 2025 3:40pm Atrial fibrillation May 09, 2025 3:40p m HTN (hypertension) May 09, 2025 3:40p m Atrial fibrillation May 16, 2025 10:59 am Dyspnea June 25, 2025 12 :53pm Morbid obesity with BMI of 50.0-59.9, ad ult June 25, 2025 12:53pm (HFpEF) heart failure with preserved eje ction fraction June 25, 2025 12:53pm Atrial fibrillation June 25, 2025 12 :53pm HTN (hypertension) June 25, 2025 12 :53pm Family History No Family History Records Found Relationship Condition Age at Onset Recorded Date/T donovan Unknown Family History?- Unknown September 272018 2:57am Family History?- Unknown September 272018 2:57am Relationship Condition Age at Onset Recorded Date/T donovan father Cerebrovascular accident (CVA) Unknown Malignant neoplasm Unknown mother Cerebrovascular accident (CVA) Unknown Diabetes mellitus Unknown Summary Purpose Additional Source Comments Source Comments (unrecognize d section and content) In the event this informatio n is protected by the Federal Confidentiality of Alcohol and Drug Abuse Patient Records regulations: The Federal rules restrict any use of the information to criminally investigate or prosecute any alcohol or drug abuse patient.[facility] Center[facility] the event this information is protected by the Federal Confidentiality of Alcohol and Drug Abuse Patient Records regulations: The Federal rules restrict any use of the information to criminally investigate or prosecute any alcohol or drug abuse patient.[facility] CenterIn the event this information is protected by the Federal Confidentiality of Alcohol and Drug Abuse Patient Records regulations: The Federal rules restrict any use of the information to criminally investigate or prosecute any alcohol or drug abuse patient.[facility] CenterIn the event this information is protected by the Federal Confidentiality of Alcohol and Drug Abuse Patient Records regulations: The Federal rules restrict any use of the information to criminally investigate or prosecute any alcohol or drug abuse patient.[facility] CenterIn the event this information is protected by the Federal Confidentiality of Alcohol and Drug Abuse Patient Records regulations: The Federal rules restrict any use of the information to criminally investigate or prosecute any alcohol or drug abuse patient.[facility] CenterIn the event this information is protected by the Federal Confidentiality of Alcohol and Drug Abuse Patient Records regulations: The Federal rules restrict any use of the information to criminally investigate or prosecute any alcohol or drug abuse patient.[facility] CenterIn the event this information is protected by the Federal Confidentiality of Alcohol and Drug Abuse Patient Records regulations: The Federal rules restrict any use of the information to criminally investigate or prosecute any alcohol or drug abuse patient.[facility] CenterIn the event this information is protected by the Federal Confidentiality of Alcohol and Drug Abuse Patient Records regulations: The Federal rules restrict any use of the information to criminally investigate or prosecute any alcohol or drug abuse patient.[facility] CenterIn the event this information is protected by the Federal Confidentiality of Alcohol and Drug Abuse Patient Records regulations: The Federal rules restrict any use of the information to criminally investigate or prosecute any alcohol or drug abuse patient.[facility] CenterIn the event this information is protected by the Federal Confidentiality of Alcohol and Drug Abuse Patient Records regulations: The Federal rules restrict any use of the information to criminally investigate or prosecute any alcohol or drug abuse patient.[facility] CenterIn the event this information is protected by the Federal Confidentiality of Alcohol and Drug Abuse Patient Records regulations: The Federal rules restrict any use of the information to criminally investigate or prosecute any alcohol or drug abuse patient.[facility] CenterIn the event this information is protected by the Federal Confidentiality of Alcohol and Drug Abuse Patient Records regulations: The Federal rules restrict any use of the information to criminally investigate or prosecute any alcohol or drug abuse patient.[facility] CenterIn the event this information is protected by the Federal Confidentiality of Alcohol and Drug Abuse Patient Records regulations: The Federal rules restrict any use of the information to criminally investigate or prosecute any alcohol or drug abuse patient.[facility] CenterIn the event this information is protected by the Federal Confidentiality of Alcohol and Drug Abuse Patient Records regulations: The Federal rules restrict any use of the information to criminally investigate or prosecute any alcohol or drug abuse patient.[facility] CenterIn the event this information is protected by the Federal Confidentiality of Alcohol and Drug Abuse Patient Records regulations: The Federal rules restrict any use of the information to criminally investigate or prosecute any alcohol or drug abuse patient.[facility] CenterIn the event this information is protected by the Federal Confidentiality of Alcohol and Drug Abuse Patient Records regulations: The Federal rules restrict any use of the information to criminally investigate or prosecute any alcohol or drug abuse patient.[facility] CenterIn the event this information is protected by the Federal Confidentiality of Alcohol and Drug Abuse Patient Records regulations: The Federal rules restrict any use of the information to criminally investigate or prosecute any alcohol or drug abuse patient.[facility] CenterIn the event this information is protected by the Federal Confidentiality of Alcohol and Drug Abuse Patient Records regulations: The Federal rules restrict any use of the information to criminally investigate or prosecute any alcohol or drug abuse patient.[facility] CenterIn the event this information is protected by the Federal Confidentiality of Alcohol and Drug Abuse Patient Records regulations: The Federal rules restrict any use of the information to criminally investigate or prosecute any alcohol or drug abuse patient.[facility] CenterIn the event this information is protected by the Federal Confidentiality of Alcohol and Drug Abuse Patient Records regulations: The Federal rules restrict any use of the information to criminally investigate or prosecute any alcohol or drug abuse patient.[facility] CenterIn the event this information is protected by the Federal Confidentiality of Alcohol and Drug Abuse Patient Records regulations: The Federal rules restrict any use of the information to criminally investigate or prosecute any alcohol or drug abuse patient.[facility] CenterIn the event this information is protected by the Federal Confidentiality of Alcohol and Drug Abuse Patient Records regulations: The Federal rules restrict any use of the information to criminally investigate or prosecute any alcohol or drug abuse patient.[facility] CenterIn the event this information is protected by the Federal Confidentiality of Alcohol and Drug Abuse Patient Records regulations: The Federal rules restrict any use of the information to criminally investigate or prosecute any alcohol or drug abuse patient.[facility] CenterIn the event this information is protected by the Federal Confidentiality of Alcohol and Drug Abuse Patient Records regulations: The Federal rules restrict any use of the information to criminally investigate or prosecute any alcohol or drug abuse patient.[facility] CenterIn the event this information is protected by the Federal Confidentiality of Alcohol and Drug Abuse Patient Records regulations: The Federal rules restrict any use of the information to criminally investigate or prosecute any alcohol or drug abuse patient.[facility] CenterIn the event this information is protected by the Federal Confidentiality of Alcohol and Drug Abuse Patient Records regulations: The Federal rules restrict any use of the information to criminally investigate or prosecute any alcohol or drug abuse patient.[facility] CenterIn the event this information is protected by the Federal Confidentiality of Alcohol and Drug Abuse Patient Records regulations: The Federal rules restrict any use of the information to criminally investigate or prosecute any alcohol or drug abuse patient.[facility] CenterIn the event this information is protected by the Federal Confidentiality of Alcohol and Drug Abuse Patient Records regulations: The Federal rules restrict any use of the information to criminally investigate or prosecute any alcohol or drug abuse patient.[facility] CenterIn the event this information is protected by the Federal Confidentiality of Alcohol and Drug Abuse Patient Records regulations: The Federal rules restrict any use of the information to criminally investigate or prosecute any alcohol or drug abuse patient.[facility] CenterIn the event this information is protected by the Federal Confidentiality of Alcohol and Drug Abuse Patient Records regulations: The Federal rules restrict any use of the information to criminally investigate or prosecute any alcohol or drug abuse patient.[facility] CenterIn the event this information is protected by the Federal Confidentiality of Alcohol and Drug Abuse Patient Records regulations: The Federal rules restrict any use of the information to criminally investigate or prosecute any alcohol or drug abuse patient.[facility] CenterIn the event this information is protected by the Federal Confidentiality of Alcohol and Drug Abuse Patient Records regulations: The Federal rules restrict any use of the information to criminally investigate or prosecute any alcohol or drug abuse patient.[facility] CenterIn the event this information is protected by the Federal Confidentiality of Alcohol and Drug Abuse Patient Records regulations: The Federal rules restrict any use of the information to criminally investigate or prosecute any alcohol or drug abuse patient.[facility] CenterIn the event this information is protected by the Federal Confidentiality of Alcohol and Drug Abuse Patient Records regulations: The Federal rules restrict any use of the information to criminally investigate or prosecute any alcohol or drug abuse patient.[facility] CenterIn the event this information is protected by the Federal Confidentiality of Alcohol and Drug Abuse Patient Records regulations: The Federal rules restrict any use of the information to criminally investigate or prosecute any alcohol or drug abuse patient.[facility] CenterIn the event this information is protected by the Federal Confidentiality of Alcohol and Drug Abuse Patient Records regulations: The Federal rules restrict any use of the information to criminally investigate or prosecute any alcohol or drug abuse patient.[facility] CenterIn the event this information is protected by the Federal Confidentiality of Alcohol and Drug Abuse Patient Records regulations: The Federal rules restrict any use of the information to criminally investigate or prosecute any alcohol or drug abuse patient.[facility] CenterIn the event this information is protected by the Federal Confidentiality of Alcohol and Drug Abuse Patient Records regulations: The Federal rules restrict any use of the information to criminally investigate or prosecute any alcohol or drug abuse patient.[facility] CenterIn the event this information is protected by the Federal Confidentiality of Alcohol and Drug Abuse Patient Records regulations: The Federal rules restrict any use of the information to criminally investigate or prosecute any alcohol or drug abuse patient.[facility] CenterIn the event this information is protected by the Federal Confidentiality of Alcohol and Drug Abuse Patient Records regulations: The Federal rules restrict any use of the information to criminally investigate or prosecute any alcohol or drug abuse patient.[facility] CenterIn the event this information is protected by the Federal Confidentiality of Alcohol and Drug Abuse Patient Records regulations: The Federal rules restrict any use of the information to criminally investigate or prosecute any alcohol or drug abuse patient.[facility] CenterIn the event this information is protected by the Federal Confidentiality of Alcohol and Drug Abuse Patient Records regulations: The Federal rules restrict any use of the information to criminally investigate or prosecute any alcohol or drug abuse patient.[facility] CenterIn the event this information is protected by the Federal Confidentiality of Alcohol and Drug Abuse Patient Records regulations: The Federal rules restrict any use of the information to criminally investigate or prosecute any alcohol or drug abuse patient.[facility] CenterIn the event this information is protected by the Federal Confidentiality of Alcohol and Drug Abuse Patient Records regulations: The Federal rules restrict any use of the information to criminally investigate or prosecute any alcohol or drug abuse patient.[facility] Reason for Visit (unrecogniz ed section and content) Reason Comments Refill Request Reason Onset Date Comments Refill Request 05/04/2022 Reason Comments Orders Needs Lab Orders Reason Comments immunization reaction Reason Comments Results Labs Reason Onset Date Comments Refill Request 12/12/2022 Reason Onset Date Comments Refill Request 05/26/2023 Reason Comments Yearly Exam Reason Onset Date Comments Refill Request 03/08/2024 Reason Onset Date Comments Refill Request 05/30/2024 Reason Onset Date Comments Refill Request 08/11/2024 Reason Comments requesting medication that is Reason Onset Date Comments Refill Request 09/05/2024 Reason Comments Medication Problem Reason Comments Cough With SOB, body aches and runny nose that started Wednesday evening Specialty Diagnoses / Procedures Referred By Contac t Referred To Contact [facility] Diagnoses cough, Procedures OV Self [address] [place] [address] [address] [place] [address] Referral ID Status Reason Start Date Expiration Date V isits Requested Visits Authorized [id number] Closed OON/Self Pay Override 12/29/2024 11/07/2025 1 1 Reason Comments Letter Reason Comments Patient Update Reason Comments Diarrhea Reason Onset Date Comments Transition Of Care 03/23/2025 Reason Comments Forms FMLA Reason Comments Patient Update Reason Comments F/U 1 month Specialty Diagnoses / Procedures Referred By Contac t Referred To Contact [facility] Diagnoses Follow-up exam follow up Procedures OFFICE/OUTPATIENT ESTABLISHED [facility] 30 MIN follow up Pierce Wells MD [address] [place] [address] Phone: tel: fax: [facility] [address] [place] [id number] Phone: tel: Referral ID Status Reason Start Date Expiration Date V isits Requested Visits Authorized [id number] Closed OON/Self Pay Override 05/05/2025 11/07/2025 1 1 Reason Comments Watery Eyes Both Eyes Reason Comments Medication Question Reason Comments Follow Up Reason Comments Forms Disability Reason Comments PT Eval Specialty Diagnoses / Procedures Referred By Contac t Referred To Contact [facility] Diagnoses Chronic right-sided low back pain without sciatica Procedures PHYSICAL THERAPY EVALUATION HIGH COMPLEX 45 MINS Cherri Cerda APRN.GATE TECHNICIAN [address] [place] [address] Phone: tel: fax: [facility] [address] [place] [address] Referral ID Status Reason Start Date Expiration Date Visits Requested Visits Authorized [id number] Authorized Auto-Generat ed Referral 05/08/2025 11/07/2025 30 30 Reason Comments Follow Up 6 week follow up Care Teams (unrecognized sec tion and content) Digital Account Coordinator Relationship Specialty Start Date End Date Pierce Wells MD [address] [place], [place] [address] PCP - General Family Practice 11/13/17 Digital Account Coordinator Relationship Specialty Start Date End Date Pierce Wells MD [address] [place], [place] [id number] PCP - General Family Practice 11/13/17 Digital Account Coordinator Relationship Specialty Start Date End Date Pierce Wells MD [address] [place], [place] [id number] PCP - General Family Practice 11/13/17 Digital Account Coordinator Relationship Specialty Start Date End Date Pierce Wells MD [address] [place] [address] PCP - General Family Practice 11/13/17 Digital Account Coordinator Relationship Specialty Start Date End Date Pierce Wells MD [address] [place] [address] PCP - General Family Practice 11/13/17 Digital Account Coordinator Relationship Specialty Start Date End Date Pierce Wells MD [address] [place] [address] PCP - General Family Medicine 11/13/17 Digital Account Coordinator Relationship Specialty Start Date End Date Pierce Wells MD [address] [place] [address] PCP - General Family Medicine 11/13/17 Digital Account Coordinator Relationship Specialty Start Date End Date Pierce Wells MD [address] [place] [address] PCP - General Family Medicine 11/13/17 Digital Account Coordinator Relationship Specialty Start Date End Date Pierce Wells MD [address] [place] [address] PCP - General Family Medicine 11/13/17 Digital Account Coordinator Relationship Specialty Start Date End Date Pierce Wells MD [address] [place] [address] PCP - General Family Medicine 11/13/17 Digital Account Coordinator Relationship Specialty Start Date End Date Pierce Wells MD [address] [place] [address] PCP - General Family Medicine 11/13/17 Digital Account Coordinator Relationship Specialty Start Date End Date Pierce Wells MD [address] [facility] [address] PCP - General Family Medicine 11/13/17 Digital Account Coordinator Relationship Specialty Start Date End Date Pierce Wells MD [address] [place] [address] PCP - General Family Medicine 11/13/17 Digital Account Coordinator Relationship Specialty Start Date End Date Pierce Wells MD [address] [place] [address] PCP - General Family Medicine 11/13/17 Digital Account Coordinator Relationship Specialty Start Date End Date Pierce Wells MD [address] [place] [address] PCP - General Family Medicine 11/13/17 Digital Account Coordinator Relationship Specialty Start Date End Date Pierce Wells MD [address] [facility] [address] PCP - General Family Medicine 11/13/17 Digital Account Coordinator Relationship Specialty Start Date End Date Pierce Wells MD [address] [facility] [address] PCP - General Family Medicine 11/13/17 Yaquelin Ceron APRN.GATE TECHNICIAN [address] [facility] [address] Seo Strategist Family Medicine 10/15/24 Armani Leong APRN.GATE TECHNICIAN [address] [facility], [place] [address] [phone] Strategist Family [facility] 10/24/24 Digital Account Coordinator Relationship Specialty Start Date End Date Pierce Wells MD [address] [place] [address] PCP - General Family Medicine 11/13/17 Yaquelin Ceron REMOTE BROADCAST ENGINEER.GATE TECHNICIAN [address] [place] [address] Seo Strategist Family [facility] 10/15/24 Armani Leong APRN.GATE TECHNICIAN [address] [place] [address] [facility] Digital Account Coordinator Relationship Specialty Start Date End Date Pierce Wells MD [address] [place] [address] PCP - General Family Medicine 11/13/17 Yaquelin Ceron, REMOTE BROADCAST ENGINEER.GATE TECHNICIAN [address] [place] [address] [facility] 10/15/24 Armani Leong REMOTE BROADCAST ENGINEER.GATE TECHNICIAN [address] [place] [address] [facility] 10/[facility]/24 Team Status: Active Member Role Status Dates Dr. Pierce Wells MD Primary Care Provider Active Team Status: Inactive Member Role Status Dates Dr. Pierce Wells MD Primary Care Provider Active Start: March 02, 2025 End: March 05, 2025 Tyron Valiente MD Emergency Provider Active Star t: March 02, 2025 End: March 05, 2025 Dr. Thierno Campos , DO Admit Provider Active Start: March 02, 2025 End: March 05, 2025 Dr. Thierno Campos , DO Other Provider Active Start: March 02, 2025 End: March 05, 2025 Dr. Jostin Arriaza , DO Attending Provider Active Start: March 02, 2025 End: March 05, 2025 Dr. Pierce Florian , DO Other Provider Active S tart: March 02, 2025 End: March 05, 2025 Team Status: Active Member Role Status Dates Dr. Pierce Wells MD Primary Care Provider Active Start: March 03, 2025 Dr. Sagrario Casanova MD Attending Provider Active Start: March 03, 2025 Team Status: Active Member Role Status Dates Dr. Pierce Wells MD Primary Care Provider Active Start: March 03, 2025 Tyron Valiente MD Emergency Provider Active Star t: March 03, 2025 Dr. Thierno Campos , DO Admit Provider Active Start: March 03, 2025 Dr. Thierno Campos , DO Other Provider Active Start: March 03, 2025 Dr. Pierce Florian , DO Attending Provider Active Start: March 03, 2025 Dr. Pierce Florian , DO Other Provider Active S tart: March 03, 2025 Team Status: Active Member Role Status Dates Dr. Pierce Wells MD Primary Care Provider Active Start: March 04, 2025 Tyron Valiente MD Emergency Provider Active Star t: March 04, 2025 Dr. Thierno Campos , DO Admit Provider Active Start: March 04, 2025 Dr. Thierno Campos , DO Other Provider Active Start: March 04, 2025 Dr. Pierce Florian , DO Attending Provider Active Start: March 04, 2025 Dr. Pierce Florian , DO Other Provider Active S tart: March 04, 2025 Team Status: Active Member Role Status Dates Dr. Pierce Wells MD Primary Care Provider Active Start: March 05, 2025 Tyron Valiente MD Emergency Provider Active Star t: March 05, 2025 Dr. Thierno Campos , DO Admit Provider Active Start: March 05, 2025 Dr. Thierno Campos , DO Other Provider Active Start: March 05, 2025 Dr. Jostin Arriaza , DO Attending Provider Active Start: March 05, 2025 Dr. Jostin Arriaza , DO Other Provider Active Start: March 05, 2025 Dr. Pierce Florian , DO Other Provider Active S tart: March 05, 2025 Team Status: Active Member Role Status Dates Dr. Pierce Wells MD Primary Care Provider Active Start: March 18, 2025 Dr. Lyle Moise MD Emergency Provider Active Start: March 18, 2025 Dr. Thierno Campos , DO Admit Provider Active Start: March 18, 2025 Dr. Thierno Campos , DO Attending Provider Active Start: March 18, 2025 Team Status: Active Member Role Status Dates Dr. Pierce Wells MD Primary Care Provider Active Start: March 18, 2025 Dr. Lyle Moise MD Emergency Provider Active Start: March 18, 2025 Dr. Thierno Campos , Admit Provider Active Start: March 18, 2025 Dr. Thierno Campos DO Attending Provider Active Start: March 18, 2025 Dr. Thierno Campos , Other Provider Active Start: March 18, 2025 Team Status: Active Member Role Status Dates Dr. Pierce Wells MD Primary Care Provider Active Start: March 19, 2025 Dr. Lyle Moise MD Emergency Provider Active Start: March 19, 2025 Dr. Thierno Campos DO Admit Provider Active Start: March 19, 2025 Dr. Thierno Campos DO Other Provider Active Start: March 19, 2025 Dr. Malcom Madsen DO Attending Provider Active Start: March 19, 2025 Dr. Malcom Madsen , Other Provider Active Star t: March 19, 2025 Team Status: Inactive Member Role Status Dates Dr. Pierce Wells MD Primary Care Provider Active Start: March 19, 2025 End: March 22, 2025 Dr. Lyle Moise MD Emergency Provider Active Start: March 19, 2025 End: March 22, 2025 Dr. Thierno Campos , DO Admit Provider Active Start: March 19, 2025 End: March 22, 2025 Dr. Thierno Campos DO Other Provider Active Start: March 19, 2025 End: March 22, 2025 Dr. Malcom Madsen , DO Other Provider Active Star t: March 19, 2025 End: March 22, 2025 Dr. Zoë Khan MD Attending Provider Active Start: March 19, 2025 End: March 22, 2025 Team Status: Active Member Role Status Dates Dr. Pierce Wells MD Primary Care Provider Active Start: March 20, 2025 Dr. Lyle Moise MD Emergency Provider Active Start: March 20, 2025 Dr. Thierno Campos DO Admit Provider Active Start: March 20, 2025 Dr. Thierno Campos DO Other Provider Active Start: March 20, 2025 Dr. Malcom Madsen DO Attending Provider Active Start: March 20, 2025 Dr. Malcom Madsen DO Other Provider Active Star t: March 20, 2025 Team Status: Active Member Role Status Dates Dr. Pierce Wells MD Primary Care Provider Active Start: March 21, 2025 Dr. Lyle Moise MD Emergency Provider Active Start: March 21, 2025 Dr. Thierno Campos DO Admit Provider Active Start: March 21, 2025 Dr. Thierno Campos DO Other Provider Active Start: March 21, 2025 Dr. Malcom Madsen DO Attending Provider Active Start: March 21, 2025 Dr. Malcom Madsen DO Other Provider Active Star t: March 21, 2025 Team Status: Active Member Role Status Dates Dr. Pierce Wells MD Primary Care Provider Active Start: March 22, 2025 Dr. Lyle Moise MD Emergency Provider Active Start: March 22, 2025 Dr. Thierno Campos DO Admit Provider Active Start: March 22, 2025 Dr. Thierno Campos DO Other Provider Active Start: March 22, 2025 Dr. Malcom Madsen DO Other Provider Active Star t: March 22, 2025 Dr. Zoë Khan MD Attending Provider Active Start: March 22, 2025 Dr. Zoë Khan MD Other Provider Active St art: March 22, 2025 Digital Account Coordinator Relationship Specialty Start Date End Date Pierce Wells MD [address] [place] [address] PCP - General Family Medicine 11/13/17 Armani Leong APRN.GATE TECHNICIAN [address] [facility] [address] Seo Strategist Family Medicine 10/24/24 Digital Account Coordinator Relationship Specialty Start Date End Date Pierce Wells MD [address] [facility] [address] PCP - General Family Medicine 11/13/17 Armani Leong APRN.GATE TECHNICIAN [address] [facility] [address] Seo Strategist [facility] Medicine 10/24/24 Team Status: Inactive Member Role Status Dates Dr. Pierce Wells MD Primary Care Provider Active Start: March 25, 2025 End: March 25, 2025 Dr. Jhonny Evans DO Emergency Provider Activ e Start: March 25, 2025 End: March 25, 2025 Digital Account Coordinator Relationship Specialty Start Date End Date Pierce Wells MD [address] [facility] [address] PCP - General Family Medicine 11/13/17 Armani Leong, JOELLE.GATE TECHNICIAN [address] [facility] [address] Seo Strategist Family Medicine 10/24/24 Digital Account Coordinator Relationship Specialty Start Date End Date Pierce Wells MD [address] [facility] [address] PCP - General Family Medicine 11/13/17 Armani Leong APRN.GATE TECHNICIAN [address] [facility] [address] Seo Strategist Family Medicine 10/24/24 Digital Account Coordinator Relationship Specialty Start Date End Date Pierce Wells MD [address] [facility] [address] PCP - General Family Medicine 11/13/17 Armani Leong APRN.CNP [address] [facility] [place] [address] Seo Strategist Family Medicine 10/24/24 Team Status: Active Member Role/Relationship Status Dates Dr. Pierce Wells MD Primary Care Provider Active Team Status: Inactive Member Role/Relationship Status Dates Dr. Pierce Wells MD Primary Care Provider Active Start: March 02, 2025 End: March 05, 2025 Tyron Valiente MD Emergency Provider Active Star t: March 02, 2025 End: March 05, 2025 Dr. Thierno Campos , Admit Provider Active Start: March 02, 2025 End: March 05, 2025 Dr. Thierno Campos DO Other Provider Active Start: March 02, 2025 End: March 05, 2025 Dr. Jostin Arriaza , Attending Provider Active Start: March 02, 2025 End: March 05, 2025 Dr. Pierce Florian , Other Provider Active S tart: March 02, 2025 End: March 05, 2025 Team Status: Active Member Role/Relationship Status Dates Dr. Pierce Wells MD Primary Care Provider Active Start: March 03, 2025 Dr. Sagrario Casanova MD Attending Provider Active Start: March 03, 2025 Team Status: Active Member Role/Relationship Status Dates Dr. Pierce Wells MD Primary Care Provider Active Start: March 03, 2025 Tyron Valiente MD Emergency Provider Active Star t: March 03, 2025 Dr. Thierno Campos DO Admit Provider Active Start: March 03, 2025 Dr. Thierno Campos DO Other Provider Active Start: March 03, 2025 Dr. Pierce Florian DO Attending Provider Active Start: March 03, 2025 Dr. Pierce Florian DO Other Provider Active S tart: March 03, 2025 Team Status: Active Member Role/Relationship Status Dates Dr. Pierce Wells MD Primary Care Provider Active Start: March 04, 2025 Tyron Valiente MD Emergency Provider Active Star t: March 04, 2025 Dr. Thierno Campos , DO Admit Provider Active Start: March 04, 2025 Dr. Thierno Campos , DO Other Provider Active Start: March 04, 2025 Dr. Pierce Florian , DO Attending Provider Active Start: March 04, 2025 Dr. Pierce Florian , DO Other Provider Active S tart: March 04, 2025 Team Status: Active Member Role/Relationship Status Dates Dr. Alonso Rizzo MD Attending Provider Active Start: March 05, 2025 Dr. Thierno Campos , DO Referring Provider Active Start: March 05, 2025 Team Status: Active Member Role/Relationship Status Dates Dr. Pierce Wells MD Primary Care Provider Active Start: March 05, 2025 Tyron Valiente MD Emergency Provider Active Star t: March 05, 2025 Dr. Thierno Campos , DO Admit Provider Active Start: March 05, 2025 Dr. Thierno Campos , DO Other Provider Active Start: March 05, 2025 Dr. Jostin Arriaza , DO Attending Provider Active Start: March 05, 2025 Dr. Jostin Arriaza , DO Other Provider Active Start: March 05, 2025 Dr. Pierce Florian , DO Other Provider Active S tart: March 05, 2025 Team Status: Active Member Role/Relationship Status Dates Dr. Pierce Wells MD Primary Care Provider Active Start: March 18, 2025 Dr. Lyle Moise MD Emergency Provider Active Start: March 18, 2025 Dr. Thierno Campos , DO Admit Provider Active Start: March 18, 2025 Dr. Thierno Campos , DO Attending Provider Active Start: March 18, 2025 Dr. Thierno Campos , DO Other Provider Active Start: March 18, 2025 Team Status: Active Member Role/Relationship Status Dates Dr. Pierce Wells MD Primary Care Provider Active Start: March 19, 2025 Dr. Lyle Moise MD Emergency Provider Active Start: March 19, 2025 Dr. Thierno Campos , DO Admit Provider Active Start: March 19, 2025 Dr. Thierno Campos , DO Other Provider Active Start: March 19, 2025 Dr. Malcom Madsen , DO Attending Provider Active Start: March 19, 2025 Dr. Malcom Madsen , DO Other Provider Active Star t: March 19, 2025 Team Status: Inactive Member Role/Relationship Status Dates Dr. Pierce Wells MD Primary Care Provider Active Start: March 19, 2025 End: March 22, 2025 Dr. Lyle Moise MD Emergency Provider Active Start: March 19, 2025 End: March 22, 2025 Dr. Thierno Campos , DO Admit Provider Active Start: March 19, 2025 End: March 22, 2025 Dr. Thierno Campos , DO Other Provider Active Start: March 19, 2025 End: March 22, 2025 Dr. Malcom Madsen , DO Other Provider Active Star t: March 19, 2025 End: March 22, 2025 Dr. Zoë Khan MD Attending Provider Active Start: March 19, 2025 End: March 22, 2025 Team Status: Active Member Role/Relationship Status Dates Dr. Pierce Wells MD Primary Care Provider Active Start: March 20, 2025 Dr. Lyle Moise MD Emergency Provider Active Start: March 20, 2025 Dr. Thierno Campos , DO Admit Provider Active Start: March 20, 2025 Dr. Thierno Campos , DO Other Provider Active Start: March 20, 2025 Dr. Malcom Madsen DO Attending Provider Active Start: March 20, 2025 Dr. Malcom Madsen , DO Other Provider Active Star t: March 20, 2025 Team Status: Active Member Role/Relationship Status Dates Dr. Pierce Wells MD Primary Care Provider Active Start: March 21, 2025 Dr. Lyle Moise MD Emergency Provider Active Start: March 21, 2025 Dr. Thierno Campos , DO Admit Provider Active Start: March 21, 2025 Dr. Thierno Campos , DO Other Provider Active Start: March 21, 2025 Dr. Malcom Madsen DO Attending Provider Active Start: March 21, 2025 Dr. Malcom Madsen , DO Other Provider Active Star t: March 21, 2025 Team Status: Active Member Role/Relationship Status Dates Dr. Pierce Wells MD Primary Care Provider Active Start: March 22, 2025 Dr. Lyle Moise MD Emergency Provider Active Start: March 22, 2025 Dr. Thierno Campos , DO Admit Provider Active Start: March 22, 2025 Dr. Thierno Campos , DO Other Provider Active Start: March 22, 2025 Dr. Malcom Madsen , DO Other Provider Active Star t: March 22, 2025 Dr. Zoë Khan MD Attending Provider Active Start: March 22, 2025 Dr. Zoë Khan MD Other Provider Active St art: March 22, 2025 Team Status: Inactive Member Role/Relationship Status Dates Dr. Pierce Wells MD Primary Care Provider Active Start: March 25, 2025 End: March 25, 2025 Dr. Jhonny Evans , DO Attending Provider Activ e Start: March 25, 2025 End: March 25, 2025 Dr. Jhonny Evans , DO Emergency Provider Activ e Start: March 25, 2025 End: March 25, 2025 Team Status: Inactive Member Role/Relationship Status Dates Dr. Pierce Wells MD Primary Care Provider Active Start: May 09, 2025 End: May 09, 2025 Dr. Pierce Wells MD Referring Provider Active Start: May 09, 2025 End: May 09, 2025 Dr. Dimitris Lucio MD Attending Provider Active S tart: May 09, 2025 End: May 09, 2025 Digital Account Coordinator Relationship Specialty Start Date End Date Pierce Wells MD [address] [place], [place] [id number] PCP - General Family Medicine 11/13/17 Armani Leong, REMOTE BROADCAST ENGINEER.GATE TECHNICIAN [address] [place], [place] [id number] Seo Strategist Family Medicine 10/24/24 Team Status: Inactive Member Role/Relationship Status Dates Dr. Pierce Wells MD Primary Care Provider Active Start: May 16, 2025 End: May 16, 2025 Dr. Dimitris Lucio MD Attending Provider Active S tart: May 16, 2025 End: May 16, 2025 Dr. Dimitris Lucio MD Referring Provider Active S tart: May 16, 2025 End: May 16, 2025 Team Status: Active Member Role/Relationship Status Dates Dr. Pierce Wells MD Primary Care Provider Active Start: May 16, 2025 Dr. Dimitris Lucio MD Attending Provider Active S tart: May 16, 2025 Dr. Dimitris Lucio MD Referring Provider Active S tart: May 16, 2025 Dr. Dimitris Lucio MD Other Provider Active Start : May 16, 2025 Team Status: Active Member Role/Relationship Status Dates Dr. Pierce Wells MD Primary Care Provider Active Start: May 16, 2025 Dr. Dimitris Lucio MD Referring Provider Active S tart: May 16, 2025 Dr. Dimitris Lucio MD Other Provider Active Start : May 16, 2025 Dr. Bay Phillips DO Attending Provider Active S tart: May 16, 2025 Team Status: Inactive Member Role/Relationship Status Dates Dr. Pierce Wells MD Primary Care Provider Active Start: May 23, 2025 End: May 23, 2025 Dr. Pierce Wells MD Referring Provider Active Start: May 23, 2025 End: May 23, 2025 Dr. Dimitris Lucio MD Attending Provider Active S tart: May 23, 2025 End: May 23, 2025 Team Status: Inactive Member Role/Relationship Status Dates Dr. Pierce Wells MD Primary Care Provider Active Start: June 04, 2025 End: June 04, 2025 Dr. Pierce Wells MD Referring Provider Active Start: June 04, 2025 End: June 04, 2025 Dr. Dimitris Lucio MD Attending Provider Active S tart: June 04, 2025 End: June 04, 2025 Digital Account Coordinator Relationship Specialty Start Date End Date Pierce Wells MD [address] [place] [id number] PCP - General Family Medicine 11/13/17 Armani Leong APRN.GATE TECHNICIAN [address] [place] [address] Seo Strategist Family Medicine 10/24/24 Digital Account Coordinator Relationship Specialty Start Date End Date Pierce Wells MD [address] [place] [address] PCP - General Family Medicine 11/13/17 Armani Leong APRN.GATE TECHNICIAN [address] [place] [address] Seo Strategist Family Medicine 10/24/24 Digital Account Coordinator Relationship Specialty Start Date End Date Pierce Wells MD [address] [place] [address] PCP - General Family Medicine 11/13/17 Armani Leong APRN.GATE TECHNICIAN [address] [place] [address] Seo Strategist Family Medicine 10/24/24 Digital Account Coordinator Relationship Specialty Start Date End Date Pierce Wells MD [address] [place] [address] PCP - General Family Medicine 11/13/17 Armani Leong APRN.GATE TECHNICIAN [address] [place] [address] Seo Strategist Family Medicine 10/24/24 Team Status: Inactive Member Role/Relationship Status Dates Dr. Pierce Wells MD Primary Care Provider Active Start: June 25, 2025 End: June 25, 2025 Dr. Pierce Wells MD Referring Provider Active Start: June 25, 2025 End: June 25, 2025 José Miguel Miranda MANAGER DESKTOP, MANAGER DESKTOP-C Attending Provider Active S tart: June 25, 2025 End: June 25, 2025 Digital Account Coordinator Relationship Specialty Start Date End Date Pierce Wells MD [address] [place] [address] PCP - General Family Medicine 11/13/17 Armani Leong APRN.GATE TECHNICIAN [address] [place] [address] Seo Strategist Family Medicine 10/24/24 Digital Account Coordinator Relationship Specialty Start Date End Date Pierce Wells MD [address] [place] [address] PCP - General Family Medicine 11/13/17 Armani Leong APRN.GATE TECHNICIAN [address] [place] [address] Seo Strategist Family Medicine 10/24/24 Digital Account Coordinator Relationship Specialty Start Date End Date Pierce Wells MD [address] [place] [address] PCP - General Family Medicine 11/13/17 Armani Leong APRN.GATE TECHNICIAN [address] [place] [address] Seo Strategist Family Medicine 10/24/24 Digital Account Coordinator Relationship Specialty Start Date End Date Pierce Wells MD [address] [place] [address] PCP - General Family Medicine 11/13/17 Armani Leong REMOTE BROADCAST ENGINEER.GATE TECHNICIAN [address] [place] [address] Seo Strategist Family Medicine 10/24/24 Digital Account Coordinator Relationship Specialty Start Date End Date Pierce Wells MD [address] [place], [place] [id number] PCP - General Family Medicine 11/13/17 Armani Leong APRN.GATE TECHNICIAN [address] [place], [place] [address] Seo Strategist [facility] 10/24/24 Digital Account Coordinator Relationship Specialty Start Date End Date Pierce Wells MD [address] [place], [place] [id number] PCP - General Family Medicine 11/13/17 Armani Leong, JOELLE.GATE TECHNICIAN [address] [place], [place] [id number] Seo Strategist [facility] 10/24/24 (unrecognized sect ion and content) No Status Records FoundNo Status Records FoundNo Status Records Found INFORMATION SOURCE (unrecogn ized section and content) DATE CREATED AUTHOR 06/16/2025 [facility] DATE CREATED AUTHOR AUTHOR'S ORGANIZ ATION 07/26/2025 [facility] DATE CREATED AUTHOR AUTHOR'S ORGANIZ ATION 08/01/2025 [facility] FOR RECORDS PERTAINING TO PATIENTS WHO ARE OR HAVE BEEN ENROLLED IN A CHEMICAL DEPENDENCY/SUBSTANCEABUSE PROGRAM, SOME INFORMATION MAY BE OMITTED. This clinical summary was aggregated from multiple sources. Caution should be exercised in using it in the provision of clinical care. This summary normalizes information from multiple sources, and as a consequence, information in this document may materially change the coding, format and clinical context of patient data. In addition, data may be omitted in some cases. CLINICAL DECISIONS SHOULD BE BASED ON THE PRIMARY CLINICAL RECORDS. [email or web address] provides no warranty or guarantee of the accuracy or completeness of information in this document.
--- OUTSIDE RECORDS SUMMARY | 2025-08-10 06:14 | XMS RPT_ITS | CCD ---
Author Organization [facility] Care Team Providers Care Inspector Electromechanical Name Role Phone Pierce Wells MD Primary Care Provider Pierce Wells MD Primary Care Provider Tannhof MARRIAGE AND FAMILY TEACHER.KICKBOXING INSTRUCTORYaquelin Unavailable Salo MARRIAGE AND FAMILY TEACHER.KICKBOXING INSTRUCTOR, Armani Unavailable Dr. Pierce Wells MD Primary Care Provider Tyron Valiente MD Emergency Provider Dr. Thierno Campos DO Admit Provider Unavail [...] Provider Dr. Zoë Khan MD Other Provider [phone] Dr. Jhonny Evans DO Emergency Provider Matthias HUBER, Dr. Alonso Hawkins Attending Provider Campos DO, Dr. Pa Referring Provider Unav ailable Nathan MIX, Dr. Barry Attending Provider Russell HUBER, Dr. Chapa Referring Provider [phone] Khadijah HUBER, Dr. Shanks Attending Provider Khadijah HUBER, Dr. Shanks Referring Provider Khadijah HUBER, Dr. Shanks Other Provider Alan MIX, Dr. Hermosillo Attending Provider ARMANI LEONG Referring Unavailable ELDERBROCK, PIERCE D Primary Care Unavailable PREBISH, CHERRI Attending Unavailable Roof ROOM SERVICE FOOD SERVICE ATTENDANT-C, José Miguel Lara Attending Provider [phone] Bay Phillips Attending Unavailable Khadijah, Lakeside Consulting Unavailable Elderbrock, Pierce Primary Care Unavailable Khadijah, Lakeside Referring Unavailable Elderbrock, Pierce Referring Unavailable Elderbrock, Pierce Primary Care Unavailable Khadijah, Lakeside Attending Unavailable Elderbrock, Pierce Referring Unavailable Elderbrock, Pierce Primary Care Unavailable Hkadijah, Dimitris Attending Unavailable Elderbrock, Pierce Referring Unavailable Elderbrock, Pierce Primary Care Unavailable Khadijah, Dimitris Attending Unavailable Khadijah, Lakeside Attending Unavailable Khadijah, Dimitris Consulting Unavailable Khadijah, Lakeside Referring Unavailable Elderbrock, Pierce Primary Care Unavailable [...] [AMLODIPINE] Drug Allergy 6 Other: See Comments [facility] (20 sources) gabapentin; Translations: [GABAPENTIN] Drug Allergy 8 Swelling [facility] (20 sources) Lisinopril; Translations: [LISINOPRIL] Drug Allergy 6 Cough [facility] Work Phone: (20 sources) venlafaxine; Translations: [VENLAFAXINE] Drug Allergy 1 Mental Status Change [facility] (1 source) amLODIPine Drug Allergy 5 [facility] (1 source) gabapentin Drug Allergy 5 [facility] (1 source) Lisinopril Drug Allergy 5 [facility] (1 source) venlafaxine Drug Allergy 5 [facility] Medications Current Medications Medication Drug Class(es) [...] on above: Take 1 capsule by mo nyh daily at bedtime. methylPREDNISolone (1 source) Corticosteroid [...] Start: 05-10-2023 take 1 capsule by mo [facility] once daily at bedtime tamsulosin (FLOMAX) 0.4 [...] on above: Take 1 capsule by mo [facility] daily at bedtime. Completed/Discontinued Medications Medication Drug Class(es) Dates Sig (Normalized) Sig (Original) amLODIPine 5 mg oral tablet (1 source) Dihydropyridine Calcium Channel Stewart Start: 07-23-2023 take 1 tablet by mouth once daily amLODIPine (NORVASC) 5 mg tablet Indications: Essential hypertension Take 1 tablet by mouth once daily. 30 tablet 5 07/23/2023 Active Comment on above: Take 1 tablet by [facility] once daily. amoxicillin 500 mg oral capsule [...] Start: 12-29-2024 take 2 tablets by mo [facility] once daily predniSONE (DELTASONE) 20 mg tablet [...] ( PTWS) -- JOSÉ MIGUEL YOUNG SR. ([id number]) 1965 M Date Time Provider Department 07/31/25 11:15 AM JENNIFER EUBANKS PTUMER Date Time Provider Department Center 07/31/2025 11:15 AM [id number] EUBANKS PTUMER [place] Reason for Visit: Physical [...] as of 05/12/2025: 05/12/25 per Patient's the manager international has had patient stop taking the potassium and low dose aspirin Jennifer Timmons RN Distance Education Coordinator: Therapy (PT/OT/Speech/Resp) ID: [id number] 07/31/2025 11:40 AM Author: JENNIFER EUBANKS Signed by JENNIFER EUBANKS PT on 07/31/2025 at 11:40 AM Document text: Program_ID:[id number] Access Code: [email or web address] URL: [email or web address] Date: 07-31-2025 Prepared By: Jennifer Eubanks Program [...] - 2 sets - 10 reps Normal [facility] THERAPY NTon 07-31-2025 THERAPY NT HNO ID: [id number] Author: JENNIFER EUBANKS, PT Service: ? Author Type: Physical Therapist Type: Therapy (PT/OT/Speech/Resp) Filed: 07/31/2025 11:40 Note Text: Program_ID:[id number] Access Code: [email or web address] URL: [email or web address] Date: 07-31-2025 Prepared By: Jennifer Eubanks Program [...] - 2 sets - 10 reps Normal [facility] CNOVon 07-23-2025 CNOV Office Visit (FAMPWS ) -- JOSÉ MIGUEL YOUNG SR. ([id number]) 1965 M Date Time Provider Department 07/23/25 10:40 AM ARMANI LEONG During your visit today, we recorded the following information about you: Pulse Respiration Blood pressure Weight 69/minute 18/minute 140/88 147.8 kg Armani Leong APRN.KICKBOXING INSTRUCTOR 07/23/2025 11:03 AM Signed Chief Complaint Patient [...] for assistance with food insecurity. Armani Leong APRN.KICKBOXING INSTRUCTOR RTO in 3 months, sooner if needed. This note was partly generated using [employer] voice recognition dictation and may contain some misspelled or inaccurate words missed on review. Recording using [employer] software for draft documentation of the visit was discussed with the patient/authorized insurance claim representative; all questions welcomed and answered. Patient/authorized insurance claim representative agreed to proceed Allergies As of Date: 07/23/2025 Noted Allergy Reaction EFFEXOR (VENLAFAXINE) 06/17/2021 1 - Mental Status Change Comments: Suicidal thoughts GABAPENTIN 11/13/2017 7 - Swelling Comments: Leg swelling AMLODIPINE 06/08/2016 14 - Other: See Comments Comments: leg swelling LISINOPRIL 02/13/2016 3 - Cough Date Reviewed: 07/23/2025 Reviewed by: Kassy Coppola (more content not included)... Normal [facility] CNPNon 07-23-2025 CNPN Telephone (CARLOS) -- JOSÉ MIGUEL YOUNG SR. ([id number]) 1965 M Date Time Provider Department 07/23/25 [...] not fresh. Sw notes that she has [facility] [employer] with food resources. Cordelia also will see if [facility] on [employer] still has discount fern[employer] coupons. Patient [...] as of 05/12/2025: 05/12/25 per Patient's the manager international has had patient stop taking the potassium [...] Status:Closed by MUNA ANDRADE on 07/25/25 Normal [facility] XR KNEE 4V AP/PA/LAT/MERCH B ILon [...] of the bilateral knees with interval progression Transportation Modeler: PSCFrench Transcribe Date/Time: Jul 26 2025 5:37P Dictated by : JOSÉ MIGUEL MCFARLAND MD This examination was interpreted and the report reviewed and electronically signed by: JOSÉ MIGUEL MCFARLAND MD on Jul 26 2025 5:39PM EST [id number] Normal [facility] [id number] 07-18-2025 [id number] HNO ID: [id number] Author: JENNIFER EUBANKS PT Service: ? Author Type: Physical Therapist Type: [id number] Filed: 07/18/2025 11:54 Note Text: [facility] Physical Therapy Plan of Care Certification Patient Name: José Miguel Young Sr. : 1965 F #: [id number] Date: 07/18/2025 To: Cherri Cerda APRN.KICKBOXING INSTRUCTOR From Therapist: Jennifer Eubanks PT RE: Patient [...] Planned: 6 Planned Treatment Interventions: Therapeutic exercise (50150), Neuromuscular re-education (03563), Manual therapy (54895), Therapeutic activities (45107), Self-[facility] management (04883), Gait Training (72327) PLAN FOR NEXT VISIT: Core activation standing [...] plan for José Miguel Young Sr., CCF# [id number] for the period of 07/18/25 -- 08/29/25, established on 07/18/2025. Signature certifies the need for therapy services. Normal [facility] CNTHERAPYon 07-18-2025 CNTHERAPY OT/PT/Speech Visit ( PTWS) -- JOSÉ MIGUEL YOUNG SR. ([id number]) 1965 M Date Time Provider Department 07/18/25 11:15 AM JENNIFER EUBANKS PTUMER Date Time Provider Department Lerna 07/18/2025 11:15 AM [id number] EUBANKS PTUMER [place] Reason for Visit: PT [...] Date Reviewed: 06/14/2025 Reviewed by: Cherri Cerda APRN.KICKBOXING INSTRUCTOR - Fully Assessed Prescriptions as of 07/18/2025 [...] as of 05/12/2025: 05/12/25 per Patient's the manager international has had patient stop taking the potassium and low dose aspirin Jennifer Timmons RN Distance Education Coordinator: Addendum Therapy (PT/OT/Speech/Resp) ID: [id number] 07/18/2025 11:40 AM Author: JENNIFER EUBANKS Signed by JENNIFER EUBANKS PT on 07/18/2025 at 11:40 AM * * * This document replaces document [id number] * * * Document text: Program_ID:[id number] Access Code: [email or web address] URL: [email or web address]/ Date: 07-18-2025 Prepared By: Jennifer Eubanks Program [...] - 3 sets - 1 reps Normal [facility] THERAPY NTon 07-18-2025 THERAPY NT HNO ID: [id number] Author: JENNIFER EUBANKS PT Service: ? Author Type: Physical Therapist Type: Therapy (PT/OT/Speech/Resp) Filed: 07/18/2025 11:40 Note Text: Program_ID:[id number] Access Code: [email or web address] URL: [email or web address]/ Date: 07-18-2025 Prepared By: Jennifer Eubanks Program [...] - 3 sets - 1 reps Normal [facility] CNPNon 07-10-2025 CNPN Telephone (FAMPWS) -- JOSÉ MIGUEL YOUNG SR. ([id number]) 1965 M Date Time Provider Department 9/2/25 PIERCE WELLS During your visit today, we recorded the following information about you: Ruby Lee MA 07/10/2025 5:06 PM Signed Type of letter/form/fax request - Disability Form received from mail on 1 floor and placed on MD desk (Dr. Wells) for completion. Completed form needs to be faxed to [employer] at [phone]. Route to [place] when form completed for processing Armani Leong [...] as of 05/12/2025: 05/12/25 per Patient's the manager international has had patient stop taking the potassium [...] Status:Closed by ARMANI LEONG on 07/13/25 Normal [facility] Cardiology Visit Reporton Cardiology Visit Report [facility] [address] [place] [address]. [address] [place] [address] OFFICE VISIT Date of Service: 06/25/25 MR#: [id number] Acct: [id number] Name: JOSÉ MIGUEL YOUNG Sr. Rep #: [id number] : 1965 Provider: YANY connolly Age/Sex: 59/M [place] [facility] Status: Signed HPI HPI History of [...] Intake Visit Reasons: 1 M FU/Needs EKG Quality Control Operator Required: No Accompanied by: Significant Other Is [...] the past year?: No PFSH Medical History (Reviewed 06/25/25 @ 13:43 by José Miguel Miranda NP, ROOM SERVICE FOOD SERVICE ATTENDANT-C) Atrial fibrillation (HFpEF) heart failure with preserved ejection fraction D-dimer, elevated Morbid obesity with BMI of 50.0-59.9, adult Dyspnea Anxiety and depression HTN (hypertension) Disorder of bone, unspecified Obesity hypoventilation syndrome Surgical History (Reviewed 06/25/25 @ 13:43 by José Miguel Miranda NP, ROOM SERVICE FOOD SERVICE ATTENDANT-C) No history of previous surgery Family History (Reviewed 06/25/25 @ 13:43 by José Miguel Miranda NP, ROOM SERVICE FOOD SERVICE ATTENDANT-C) Father CVA (cerebral vascular accident) Cancer Mother CVA (cerebral vascular accident) Diabetes Social History (Reviewed 06/25/25 @ 13:43 by José Miguel Miranda NP, ROOM SERVICE FOOD SERVICE ATTENDANT-C) Smoking Status: Never smoker alcohol intake: never substance use type: does not use caffeine: Yes Type: carbonated beverages ROS Const Const: Posit (more content not included)... Normal [facility] 06-14-2025 [facility] Office Visit (SPAGWO ) -- JOSÉ MIGUEL YOUNG SR. ([id number]) 1965 M Date Time Provider Department 06/14/25 9:00 AM CHERRI CERDA During your visit today, we recorded the following information about you: Pulse Respiration Normal [facility] C[facility] Telephone (FAMPWS) -- JOSÉ MIGUEL YOUNG SR. ([id number]) 1965 M Date Time Provider Department 06/08/[facility] During your visit today, we recorded [...] who requests that it be sent to [facility]. Advised her that we will fax it [...] Date Reviewed: 06/04/2025 Reviewed by: Armani Leong APRN.KICKBOXING INSTRUCTOR - Fully Assessed Reason for Visit: DME [...] pain [M51.362] Order(s):DME SUPPLY OR ACCESSORY, NOS [[id number]] Order #: [id number] DME SUPPLY OR ACCESSORY, NOS [[id number]] Order #: [id number] Prescriptions as of 06/12/2025 - tamsulosin (FLOMAX) [...] as of 05/12/2025: 05/12/25 per Patient's the manager international has had patient stop taking the potassium [...] Encounter Status:Closed by DANIELLE BOLDEN on 06/12/25 [facility] Office Visit (FAMPWS ) -- JOSÉ MIGUEL YOUNG SR. ([id number]) 1965 M Date Time Provider Department 06/04/25 8:40 AM [facility] During your visit today, we recorded the following information about you: Pulse Respiration Blood pressure Weight 62/minute 18/minute 130/78 147 kg Armani Leong APRN.KICKBOXING INSTRUCTOR 06/04/2025 9:12 AM Signed Chief Complaint Patient [...] is currently under the care of a manager international at [facility] and had a cardioversion performed on 05/09. [...] psychiatric evaluation if symptoms worsen. Armani Leong APRN.KICKBOXING INSTRUCTOR RTO in 6 weeks, sooner if needed. This note was partly generated using [employer] voice recognition dictation and may contain some misspelled or inaccurate words missed on review. Recording usin (more content not included)... Normal [facility] XR LUMBAR 3V AP/LAT/L5-S1on 06-04-2025 XR [...] spine are presented. FINDINGS: There are five mqg-bwa-lhztxse lumbar vertebrae. Left-sided curvature is seen on AP view. No fracture seen. There is grade 1 L5 on S1 anterolisthesis. L2-3, L3-4 and L4-5 disc space narrowing is demonstrated, with or without endplate sclerosis. There is significant osteophyte formation, with facet arthrosis. Kissing spine seen on lateral view. IMPRESSION: Advanced lumbar spine degenerative changes with multilevel disc space narrowing. Transportation Modeler: JOSE Transcribe Date/Time: Jun 06 2025 5:54P Dictated by : CHACE MATHEWS MD This examination was interpreted and the report reviewed and electronically signed by: CHACE MATHEWS MD on Jun 06 2025 5:56PM EST [id number] [facility] JOSÉ MIGUEL YOUNG SR. ([id number]) 1965 M Date Time Provider Department 05/21/25 [facility] During your visit today, we recorded [...] as of 05/12/2025: 05/12/25 per Patient's the manager international has had patient stop taking the potassium [...] Status:Closed by ANGELA OJEDA on 05/21/25 Normal [facility] Anion gap in Serum or Plasma Ordered By: Dimitris Lucio on 05-16-2025 Anion gap [Moles/Vol] 11 mmol/L 5-15 [facility] BUN/creatinine ratioOrdered By: Dimitris Lucio on 05-16-2025 Urea nitrogen/Creatinine [Mass ratio] 22.7 mg/mg High - [facility] Basic Metabolic Profile (BMP )on 05-16-2025 BUN/CRE 22.7 RATIO High - [facility] Comment on above: Performed By: #### L 500.2500 ####[facility] [address] [place], [address] Calcium [Mass/Vol] 9.4 mg/dL Normal 7.6-11.0 [facility] Comment on above: Performed By: #### L 500.2500 ####[facility] [address] [place], [address] Chloride [Moles/Vol] 103 mmol/L Normal 98-108 [facility] Comment on above: Performed By: #### L 500.2500 ####[facility] [address] [place], [address] CO2 [Moles/Vol] 26.8 mmol/L Normal 21.0-32.0 [facility] Comment on above: Performed By: #### L 500.2500 ####[facility] [address] [place], [address] Creatinine [Mass/Vol] 1.00 mg/dL Normal 0.70-1.20 [facility] Comment on above: Performed By: #### L 500.2500 ####[facility] [address] [place], [address] ECRCL 109.94 ml/min Normal 50-250 [facility] Comment on above: Performed By: #### L 500.2500 ####[facility] [address] [place], [address] GAP 11 Normal 5-15 [facility] Comment on above: Performed By: #### L 500.2500 ####[facility] [address] [place], [address] GFR/1.73 sq M.predicted among non-blacks MDRD (S/P/Bld) [Vol rate/Area] 87 mL/min/{1.73_m2} Normal >60 [facility] Comment on above: Result Comment: mL/m in/1.73m2 CKD-EPI Creatinine Equation (2020) Performed By: #### L 500.2500 ####[facility] [address] [place], [address] Glucose [Mass/Vol] 118 mg/dL High 70-99 [facility] Comment on above: Performed By: #### L 500.2500 ####[facility] [address] [place], [address] Potassium [Moles/Vol] 4.0 mmol/L Normal 3.3-5.1 [facility] Comment on above: Performed By: #### L 500.2500 ####[facility] [address] [place], [address] Sodium [Moles/Vol] 141 mmol/L Normal 133-145 [facility] Comment on above: Performed By: #### L 500.2500 ####[facility] [address] [place], [address] Urea nitrogen [Mass/Vol] 23 mg/dL High 4-19 [facility] Comment on above: Performed By: #### L 500.2500 ####[facility] [address] [place], [address] Carbon dioxide, total [Moles /volume] in Central venous bloodOrdered By: Dimitris Lucio on 05-16-2025 CO2 [Moles/Vol] 26.8 mmol/L 21.0-32.0 [facility] Chloride assayOrdered By: Jaret Lucio on 05-16-2025 Chloride [Moles/Vol] 103 mmol/L 98-108 [facility] Glomerular filtration rate ( GFR) estimation/1.73 sq m using serum, plasma, or whole bOrdered By: Dimitris Lucio on 05-16-2025 GFR/1.73 sq M.predicted among non-blacks MDRD (S/P/Bld) [Vol rate/Area] 87 mL/min/{1.73_m2} >60 [facility] Comment on above: mL/min/1.73m2 CKD-EP I Creatinine Equation (2020) Potassium measurement (mass/ volume)Ordered By: Dimitris Lucio on 05-16-2025 Potassium (Unsp spec) [Mass/Vol] 4.0 mmol/L 3.3-5.1 [facility] Procedure Reporton Procedure Report [facility] Medical Records Department [address] [place] [address] Procedure Report 05/16/25 1306 MR#: [id number] Acct: [id number] Name: JOSÉ MIGUEL YOUNG . Rep #: [id number] : 1965 59 From: Bay Phillips DO PCP: Dr. Pierce Wells MD Status:[facility] Location: [facility] Procedures Pulmonary Pulmonary Procedures /Diagnostic Testin Con Sedation Non-invasive Procedural Procedure Information Date of Procedure: 05/16/25 Description of procedure: CONSCIOUS SEDATION REPORT DATE OF SERVICE: May 16, 2025 BRIEF HISTORY OF PRESENT ILLNESS: The patient is a 59-year-old male who presented to [facility] to undergo an elective outpatient [...] DO; Dr. Pierce Wells MD Signed Normal [facility] Procedure Report [facility] Medical Records Department [address] [place] [address] Procedure Report 05/16/25 1239 MR#: [id number] Acct: [id number] Name: JOSÉ MIGUEL YOUNG . Rep #: [id number] : 1965 59 From: Dimitris Lucio MD PCP: Dr. Pierce Wells MD Status:[facility] Location: [facility] Problems Associated Problem List Diagnoses (1) Atrial [...] MD; Dr. Pierce Wells MD Signed Normal [facility] Serum creatinine measurement (mass/volume)Ordered By: Dimitris Lucio on 05-16-2025 Creatinine [Mass/Vol] 1.00 mg/dL 0.70-1.20 [facility] Serum glucose measurement (m ass/volume)Ordered By: Dimitris Lucio on 05-16-2025 Glucose [Mass/Vol] 118 mg/dL High 70-99 [facility] Serum or plasma calcium silvia urement (mass/volume)Ordered By: Dimitris Lucio on 05-16-2025 Calcium [Mass/Vol] 9.4 mg/dL 7.6-11.0 [facility] Serum or plasma urea nitroge n measurement (mass/volume)Ordered By: Dimitris Lucio on 05-16-2025 Urea nitrogen [Mass/Vol] 23 mg/dL High 4-19 [facility] Sodium levelOrdered By: Ariela Lucio on 05-16-2025 Sodium [Moles/Vol] 141 mmol/L 133-145 [facility] Cardiology Visit Reporton Cardiology Visit Report [facility] [place] [facility] [address] [place] [address] OFFICE VISIT Date of Service: 05/09/25 MR#: [id number] Acct: [id number] Name: JOSÉ MIGUEL YOUNG . Rep #: [id number] : 1965 Provider: Dr. Dimitris Lucio MD Age/Sex: 59/M [place] [facility] Status: Signed HPI HPI History of [...] Source Monitor Intake Visit Reasons: S/P HOSP ([facility] 03/22) Quality Control Operator Required: No Accompanied by: Significant Other Is [...] healthy appeari (more content not included)... Normal [facility] CBC panel Auto (Bld)on 05-05 Erythrocyte distribution width (RBC) [Ratio] 14.2 % Normal 11.5-15.0 [facility] Comment on above: Order Comment: Speci men Type: BLOOD SPECIMENOrdering Facility: [facility] Address: [address] [place] [address] Performed By: #### 5 8410-2 ####[facility] LABCLIA [id number] [place] [address] [place] Hematocrit (Bld) [Volume fraction] 46.3 % Normal 39.0-51.0 [facility] Comment on above: Order Comment: Speci men Type: BLOOD SPECIMENOrdering Facility: [facility] Address: [address] [place] [address] Performed By: #### 5 8410-2 ####[facility] LABCLIA [id number] [place] [address] [place] Hemoglobin (Bld) [Mass/Vol] 15.1 g/dL Normal 13.0-17.0 [facility] Comment on above: Order Comment: Speci men Type: BLOOD SPECIMENOrdering Facility: [facility] Address: [address] [place] [address] Performed By: #### 5 8410-2 ####[facility] LABCLIA [id number] [place] [address] [place] MCH (RBC) [Entitic mass] 27.9 pg Normal 26.0-34.0 [facility] Comment on above: Order Comment: Speci men Type: BLOOD SPECIMENOrdering Facility: [facility] Address: [address] [place] [address] Performed By: #### 5 8410-2 ####[facility] LABCLIA [id number] [place] [address] [place] MCHC (RBC) [Mass/Vol] 32.6 g/dL Normal 30.5-36.0 [facility] Comment on above: Order Comment: Speci men Type: BLOOD SPECIMENOrdering Facility: [facility] Address: [address] [place] [address] Performed By: #### 5 8410-2 ####[facility] LABCLIA [id number] [place] [address] [place] MCV (RBC) [Entitic vol] 85.4 fL Normal 80.0-100.0 [facility] Comment on above: Order Comment: Speci men Type: BLOOD SPECIMENOrdering Facility: [facility] Address: [address] [place] [address] Performed By: #### 5 8410-2 ####[facility] LABCLIA [id number] [place] [address] [place] Nucleated RBC (Bld) [#/Vol] 10*3/uL Normal <0.01 [facility] Comment on above: Order Comment: Speci men Type: BLOOD SPECIMENOrdering Facility: [facility] Address: [address] [place] [address] Performed By: #### 5 8410-2 ####[facility] LABCLIA [id number] [place] [address] [place] Platelet mean volume (Bld) [Entitic vol] 10.8 fL Normal 9.0-12.7 [facility] Comment on above: Order Comment: Speci men Type: BLOOD SPECIMENOrdering Facility: [facility] Address: [address] [place] [address] Performed By: #### 5 8410-2 ####[facility] LABCLIA [id number] [place] [address] [place] Platelets (Bld) [#/Vol] 236 10*3/uL Normal 150-400 [facility] Comment on above: Order Comment: Speci men Type: BLOOD SPECIMENOrdering Facility: [facility] Address: [address] [place] [address] Performed By: #### 5 8410-2 ####[facility] LABCLIA [id number] [place] [address] [place] RBC (Bld) [#/Vol] 5.42 10*6/uL Normal 4.20-6.00 [facility] Comment on above: Order Comment: Speci men Type: BLOOD SPECIMENOrdering Facility: [facility] Address: [address] [place] [address] Performed By: #### 5 8410-2 ####[facility] LABCLIA [id number] [place] [address] [place] WBC (Bld) [#/Vol] 5.03 10*3/uL Normal 3.70-11.00 [facility] Comment on above: Order Comment: Speci men Type: BLOOD SPECIMENOrdering Facility: [facility] Address: [address] [place] [address] Performed By: #### 5 8410-2 ####[facility] LABIA [id number] [place] [address] [place] [facility]OVon 05-05-2025 [facility] JOSÉ MIGUEL YOUNG SR. ([id number]) 1965 M Date Time Provider Department 05/05/25 [...] to Cardio, first visit on 05/09/25 with [facility], Dr. Lucio. Taking Eliquis 5 [...] Discontinued C (more content not included)... Normal [facility] Comprehensive metabolic 2000 panelon 05-05-2025 Albumin [Mass/Vol] 4.7 g/dL Normal 3.9-4.9 [facility] Comment on above: Order Comment: Speci men Type: BLOOD SPECIMENOrdering Facility: [facility] Address: [address] [place] [address] Performed By: #### 2 4323-8 ####[facility] LABCLIA [id number] [place] [address] [place] ALP [Catalytic activity/Vol] 55 U/L Normal 38-113 [facility] Comment on above: Order Comment: Speci men Type: BLOOD SPECIMENOrdering Facility: [facility] Address: [address] [place] [address] Performed By: #### 2 4323-8 ####[facility] LABCLIA [id number] [place] [address] [place] ALT [Catalytic activity/Vol] 20 U/L Normal 10-54 [facility] Comment on above: Order Comment: Speci men Type: BLOOD SPECIMENOrdering Facility: [facility] Address: [address] [place] [address] Performed By: #### 2 4323-8 ####[facility] LABCLIA [id number] [place] [id number] [place] Anion gap [Moles/Vol] 11 mmol/L Normal 8-15 [facility] Comment on above: Order Comment: Speci men Type: BLOOD SPECIMENOrdering Facility: [facility] Address: [address] [place] [address] Performed By: #### 2 4323-8 ####[facility] LABCLIA [id number] [address] [address] [place] AST [Catalytic activity/Vol] 32 U/L Normal 14-40 [facility] Comment on above: Order Comment: Speci men Type: BLOOD SPECIMENOrdering Facility: [facility] Address: [address] [place] [address] Performed By: #### 2 4323-8 ####[facility] LABCLIA [id number] [place] [address] [place] Bilirubin [Mass/Vol] 1.0 mg/dL Normal 0.2-1.3 [facility] Comment on above: Order Comment: Speci men Type: BLOOD SPECIMENOrdering Facility: [facility] Address: [address] [place] [address] Performed By: #### 2 4323-8 ####[facility] LABCLIA [id number] [place] [address] [place] Calcium [Mass/Vol] 10.2 mg/dL Normal 8.5-10.2 [facility] Comment on above: Order Comment: Speci men Type: BLOOD SPECIMENOrdering Facility: [facility] Address: [address] [place] [address] Performed By: #### 2 4323-8 ####[facility] LABCLIA [id number] [facility] [place] [id number] [place] Chloride [Moles/Vol] 99 mmol/L Normal 98-107 [facility] Comment on above: Order Comment: Speci men Type: BLOOD SPECIMENOrdering Facility: [facility] Address: [address] [place] [address] Performed By: #### 2 4323-8 ####[facility] LABCLIA [id number] [facility] [place] [id number] [place] CO2 [Moles/Vol] 28 mmol/L Normal 22-30 [facility] Comment on above: Order Comment: Speci men Type: BLOOD SPECIMENOrdering Facility: [facility] Address: [address] [place] [address] Performed By: #### 2 4323-8 ####[facility] LABIA [id number] [place] [address] [place] Creatinine [Mass/Vol] 0.96 mg/dL Normal 0.73-1.22 [facility] Comment on above: Order Comment: Leonie men Type: BLOOD SPECIMENOrdering Facility: [facility] Address: [address] [place] [address] Performed By: #### 2 4323-8 ####[facility] LABIA [id number] [address] [place] Creatinine and Glomerular filtration rate.predicted panel (S/P/Bld) 91 mL/min/1.73m??? Normal >=60 [facility] Comment on above: Order Comment: Leonie schultz Type: BLOOD SPECIMENOrdering Facility: [facility] Address: [address] [place] [address] Result Comment: Tata mated Glomerular Filtration Rate [...] Performed By: #### 2 4323-8 ####[facility] LABIA [id number] [place] [address] [place] Glucose [Mass/Vol] 125 mg/dL High 74-99 [facility] Comment on above: Order Comment: Leonie men Type: BLOOD SPECIMENOrdering Facility: [facility] Address: [address] [place] [address] Result Comment: The [place] Diabetes Association (ADA) provides guidance for cutoff [...] Standards of Medical Care in Diabetes 2016, [place] [employer]. Diabetes Care. 2016.39(Suppl 1). Performed By: #### 2 4323-8 ####[facility] LABCLIA [id number] [facility] [address] [address] [place] Potassium [Moles/Vol] 4.6 mmol/L Normal 3.7-5.1 [facility] Comment on above: Order Comment: Speci men Type: BLOOD SPECIMENOrdering Facility: [facility] Address: [address] [place] [address] Performed By: #### 2 4323-8 ####[facility] LABCLIA [id number] [place] [address] [place] Protein [Mass/Vol] 8.0 g/dL Normal 6.3-8.0 [facility] Comment on above: Order Comment: Speci men Type: BLOOD SPECIMENOrdering Facility: [facility] Address: [address] [place] [address] Performed By: #### 2 4323-8 ####[facility] LABCLIA [id number] [facility] [place] [address] [place] Sodium [Moles/Vol] 138 mmol/L Normal 136-144 [facility] Comment on above: Order Comment: Speci men Type: BLOOD SPECIMENOrdering Facility: [facility] Address: [address] [place] [address] Performed By: #### 2 4323-8 ####[facility] LABCLIA [id number] [facility] [address] [address] [place] Urea nitrogen [Mass/Vol] 15 mg/dL Normal 9-24 [facility] Comment on above: Order Comment: Speci men Type: BLOOD SPECIMENOrdering Facility: [facility] Address: [address] [place] [address] Performed By: #### 2 4323-8 ####[facility] LABCLIA [id number] [place] [address] [place] CNPNon 04-18-2025 CNPN Telephone ([facility]AMPWS) -- JOSÉ MIGUEL YOUNG SR. ([id number]) 1965 M Date Time Provider Department 04/18/25 [facility] During your visit today, we recorded [...] Encounter Status:Closed by PIERCE WELLS on 04/24/25 [facility] 8623on OP OVA AND PARASITES EX AM, ROUTINE These results were obtained using wet preparation(s) and trichrome stained smear. This test does not include testing for Crytosporidium parvum, Cyclospora, or Microsporidia. One negative specimen does not rule out the possibility of a parasitic infection. TESTING PERFORMED AT [facility]. ORIGINAL REPORT ON FILE IN LAB CONTAINS ADDITIONAL TEST SITE INFORMATION. Ova/Parasite Exam NO OVA, CYSTS, OR PARASITES FOUND. Normal [facility] Comment on above: Performed By: #### L 100.0100, L500.2500, M600.5000 ####[facility] [id number] [place], [address] CBC panel Auto (Bld)on 03-30 Erythrocyte distribution width (RBC) [Ratio] 13.2 % Normal 11.5-15.0 [facility] Comment on above: Order Comment: Speci men Type: BLOOD SPECIMENOrdering Facility: [facility] Address: [address] [place] [address] Performed By: #### 5 8410-2 ####[facility] LABCLIA [id number] [address] [address] [place] Hematocrit (Bld) [Volume fraction] 42.1 % Normal 39.0-51.0 [facility] Comment on above: Order Comment: Speci men Type: BLOOD SPECIMENOrdering Facility: [facility] Address: [address] [place] [address] Performed By: #### 5 8410-2 ####[facility] LABCLIA [id number] [place] [address] [place] Hemoglobin (Bld) [Mass/Vol] 13.9 g/dL Normal 13.0-17.0 [facility] Comment on above: Order Comment: Speci men Type: BLOOD SPECIMENOrdering Facility: [facility] Address: [address] [place] [address] Performed By: #### 5 8410-2 ####[facility] LABIA [id number] [place] [address] [place] MCH (RBC) [Entitic mass] 28.7 pg Normal 26.0-34.0 [facility] Comment on above: Order Comment: Speci men Type: BLOOD SPECIMENOrdering Facility: [facility] Address: [address] [place] [address] Performed By: #### 5 8410-2 ####[facility] [id number] [address] [place] MCHC (RBC) [Mass/Vol] 33.0 g/dL Normal 30.5-36.0 [facility] Comment on above: Order Comment: Speci men Type: BLOOD SPECIMENOrdering Facility: [facility] Address: [address] [place] [address] Performed By: #### 5 8410-2 ####[facility]BR[facility] [id number] [place] [address] [place] MCV (RBC) [Entitic vol] 86.8 fL Normal 80.0-100.0 [facility] Comment on above: Order Comment: Speci men Type: BLOOD SPECIMENOrdering Facility: [facility] Address: [address] [place] [address] Performed By: #### 5 8410-2 ####[facility]BR[facility] [id number] [place] [address] [place] Nucleated RBC (Bld) [#/Vol] 10*3/uL Normal <0.01 [facility] Comment on above: Order Comment: Speci men Type: BLOOD SPECIMENOrdering Facility: [facility] Address: [address] [place] [address] Performed By: #### 5 8410-2 ####[facility] LABCLIA [id number] [address] [address] [place] Platelet mean volume (Bld) [Entitic vol] 10.2 fL Normal 9.0-12.7 [facility] Comment on above: Order Comment: Speci men Type: BLOOD SPECIMENOrdering Facility: [facility] Address: [address] [place] [address] Performed By: #### 5 8410-2 ####[facility] LABIA [id number] [place] [address] [place] Platelets (Bld) [#/Vol] 291 10*3/uL Normal 150-400 [facility] Comment on above: Order Comment: Speci men Type: BLOOD SPECIMENOrdering Facility: [facility] Address: [address] [place] [address] Performed By: #### 5 8410-2 ####[facility] LABIA [id number] [place] [address] [place] RBC (Bld) [#/Vol] 4.85 10*6/uL Normal 4.20-6.00 [facility] Comment on above: Order Comment: Speci men Type: BLOOD SPECIMENOrdering Facility: [facility] Address: [address] [place] [address] Performed By: #### 5 8410-2 ####[facility] LABIA [id number] [place] [address] [place] WBC (Bld) [#/Vol] 5.18 10*3/uL Normal 3.70-11.00 [facility] Comment on above: Order Comment: Speci men Type: BLOOD SPECIMENOrdering Facility: [facility] Address: [address] [place] [address] Performed By: #### 5 8410-2 ####[facility] DANIEL [id number] [place] [address] [place] [facility] CNOVon 03-30-2025 CNOV Office Visit ([facility]AMPWS ) -- JOSÉ MIGUEL YOUNG SR. ([id number]) 1965 M Date Time Provider Department 03/30/25 2:20 PM [facility] During your visit today, we recorded [...] pt requested to stay with [facility] as [facility] has not returned their multiple [...] going to harm others. Below copied from [email or web address]: Chief Complaint: Shortness of Breath Informant: patient [...] pleural e (more content not included)... Normal [facility] Comprehensive metabolic 2000 panelon 03-30-2025 Albumin [Mass/Vol] 4.5 g/dL Normal 3.9-4.9 [facility] Comment on above: Order Comment: Speci men Type: BLOOD SPECIMENOrdering Facility: [facility] Address: [address] [place] [address] Performed By: #### 2 4323-8 ####[facility] LABCLIA [id number] [place] [address] [place] ALP [Catalytic activity/Vol] 52 U/L Normal 38-113 [facility] Comment on above: Order Comment: Speci men Type: BLOOD SPECIMENOrdering Facility: [facility] Address: [address] [place] [address] Performed By: #### 2 4323-8 ####[facility] LABCLIA [id number] [place] [address] [place] ALT [Catalytic activity/Vol] 27 U/L Normal 10-54 [facility] Comment on above: Order Comment: Speci men Type: BLOOD SPECIMENOrdering Facility: [facility] Address: [address] [place] [address] Performed By: #### 2 4323-8 ####[facility] LABCLIA [id number] [facility] [address] [place] [address] [place] Anion gap [Moles/Vol] 12 mmol/L Normal 8-15 [facility] Comment on above: Order Comment: Speci men Type: BLOOD SPECIMENOrdering Facility: [facility] Address: [address] [place] [address] Performed By: #### 2 4323-8 ####[facility] LABCLIA [id number] [facility] [address], [facility] [place] AST [Catalytic activity/Vol] 38 U/L Normal 14-40 [facility] Comment on above: Order Comment: Speci men Type: BLOOD SPECIMENOrdering Facility: [facility] Address: [address] [place] [address] Performed By: #### 2 4323-8 ####[facility] LABCLIA [id number] [place] [address] [place] Bilirubin [Mass/Vol] 0.6 mg/dL Normal 0.2-1.3 [facility] Comment on above: Order Comment: Speci men Type: BLOOD SPECIMENOrdering Facility: [facility] Address: [address] [place] [address] Performed By: #### 2 4323-8 ####[facility] LABCLIA [id number] [facility] [place] [id number] [place] Calcium [Mass/Vol] 9.6 mg/dL Normal 8.5-10.2 [facility] Comment on above: Order Comment: Speci men Type: BLOOD SPECIMENOrdering Facility: [facility] Address: [address] [place], [place] [address] Performed By: #### 2 4323-8 ####[facility] LABCLIA [id number] [facility] [place] [id number] [place] Chloride [Moles/Vol] 103 mmol/L Normal 98-107 [facility] Comment on above: Order Comment: Speci men Type: BLOOD SPECIMENOrdering Facility: [facility] Address: [address] [place] [address] Performed By: #### 2 4323-8 ####[facility] LABCLIA [id number] [address] [address] [place] CO2 [Moles/Vol] 26 mmol/L Normal 22-30 [facility] Comment on above: Order Comment: Speci men Type: BLOOD SPECIMENOrdering Facility: [facility] Address: [address] [place] [address] Performed By: #### 2 4323-8 ####[facility] LABIA [id number] [address] STATES OF [facility] Creatinine [Mass/Vol] 0.98 mg/dL Normal 0.73-1.22 [facility] Comment on above: Order Comment: Speci men Type: BLOOD SPECIMENOrdering Facility: [facility] Address: [address] [place] [address] Performed By: #### 2 4323-8 ####[facility] LABIA [id number] [address] Creatinine and Glomerular filtration rate.predicted panel (S/P/Bld) 89 mL/min/1.73m??? Normal >=60 [facility] Comment on above: Order Comment: Speci men Type: BLOOD SPECIMENOrdering Facility: [facility] Address: [address] [place] [address] Result Comment: Tata mated Glomerular Filtration Rate [...] Performed By: #### 2 4323-8 ####[facility] LABCLIA [id number] [address] [address] [place] Glucose [Mass/Vol] 98 mg/dL Normal 74-99 [facility] Comment on above: Order Comment: Speci men Type: BLOOD SPECIMENOrdering Facility: [facility] Address: [address] [place] [address] Result Comment: The [place] Diabetes Association (ADA) provides guidance for cutoff [...] Standards of Medical Care in Diabetes 2016, [place] [employer]. Diabetes Care. 2016.39(Suppl 1). Performed By: #### 2 4323-8 ####[facility] LABIA [id number] [place] [id number] [place] Potassium [Moles/Vol] 4.4 mmol/L Normal 3.7-5.1 [facility] Comment on above: Order Comment: Speci men Type: BLOOD SPECIMENOrdering Facility: [facility] Address: [address] [place] [address] Performed By: #### 2 4323-8 ####[facility] LABIA [id number] [place] [id number] [place] Protein [Mass/Vol] 8.1 g/dL High 6.3-8.0 [facility] Comment on above: Order Comment: Speci men Type: BLOOD SPECIMENOrdering Facility: [facility] Address: [address] [place] [address] Performed By: #### 2 4323-8 ####[facility] LABIA [id number] [place] [id number] [place] Sodium [Moles/Vol] 141 mmol/L Normal 136-144 [facility] Comment on above: Order Comment: Speci men Type: BLOOD SPECIMENOrdering Facility: [facility] Address: [address] [place] [address] Performed By: #### 2 4323-8 ####[facility] LABCLIA [id number] [place] [address] [place] Urea nitrogen [Mass/Vol] 17 mg/dL Normal 9-24 [facility] Comment on above: Order Comment: Speci men Type: BLOOD SPECIMENOrdering Facility: [facility] Address: [address] [place] [address] Performed By: #### 2 4323-8 ####[facility] LABCLIA [id number] [place] [id number] [facility] CNPFlaca 03-27-2025 [facility] -- JOSÉ MIGUEL YOUNG SR. 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 Copy made for records, originals at [...] Status:Closed by RUBY LEE on 04/03/25 Normal [facility] ENTERIC PATHOGEN PANEL STOOL on 03-26-2025 [...] Not Detected Yersinia Not Detected Rotavirus Normal [facility] Comment on above: Performed By: #### M 100.0605, M100.6796, M100.6795, M100.637 ####[facility] [id number] [facility] [place], [address] 12 Lead EKGon 03-25-2025 12 Lead EKG [facility] Services [address] [place] [address] 12 Lead EKG 03/25/25 1722 MR#: [id number] Acct: [id number] Name: JOSÉ MIGUEL YOUNG Sr. Rep #: [id number] : 1965 59 From: Dimitris Lucio MD [...] ECG Confirmed by DIMITRIS LUCIO MD ([id number]), book or script editor TIA YUSUF ([id number]) on 03/26/2025 9:28:08 AM Referred By: Confirmed By: DIMITRIS LUCIO MD 03/26/25927 Date Dimitris Lucio MD CC: Dr. Jhonny Evans DO; Dr. Pierce Wells MD; CALVIN Ramirez Signed Normal [facility] [facility] Absolute lymphocyte countOrd ered By: Fina Adame on 03-25-2025 Lymphocytes Auto (Unsp spec) [#/Vol] 2.12 10*3/uL 0.83-4.51 [facility] Absolute neutrophil countOrd ered By: Fina Adame on 03-25-2025 Neutrophils (Bld) [#/Vol] 1.8 10*3/uL Low 2.0-7.7 [facility] Anion gap in Serum or Plasma Ordered By: Fina Adame on 03-25-2025 Anion gap [Moles/Vol] 8 mmol/L 03-22 [facility] Automated lymphocyte count a s percentage of total leukocytesOrdered By: Fina Adame on 03-25-2025 Lymphocytes/100 WBC Auto (Unsp spec) 48.1 % High [facility] BUN/creatinine ratioOrdered By: Fina Adame on 03-25-2025 Urea nitrogen/Creatinine [Mass ratio] 17.5 mg/mg 08-27 [facility] Basic Metabolic Profile (BMP )on 03-25-2025 BUN/CRE 17.5 RATIO Normal 08-27 [facility] Comment on above: Performed By: #### L 100.0100, L500.2500, M600.5000 ####[facility] [address] [place], [address] Calcium [Mass/Vol] 5.5 mg/dL Invalid Interpretation Code 7.6-11.0 [facility] Comment on above: Result Comment: Crit ical Result(s) Called at: by:??Results read back by same. Performed By: #### L 100.0100, L500.2500, M600.5000 ####[facility] [address] [place], [address] Chloride [Moles/Vol] 119 mmol/L High 98-108 [facility] Comment on above: Performed By: #### L 100.0100, L500.2500, M600.5000 ####[facility] [address] [place], [address] CO2 [Moles/Vol] 14.4 mmol/L Low 21.0-32.0 [facility] Comment on above: Performed By: #### L 100.0100, L500.2500, M600.5000 ####[facility] [address] [place], [address] Creatinine [Mass/Vol] 0.61 mg/dL Low 0.70-1.20 [facility] Comment on above: Performed By: #### L 100.0100, L500.2500, M600.5000 ####[facility] [address] [place], [address] GAP 8 Normal 5-15 [facility] Comment on above: Performed By: #### L 100.0100, L500.2500, M600.5000 ####[facility] [address] [place], [address] GFR/1.73 sq M.predicted among non-blacks MDRD (S/P/Bld) [Vol rate/Area] 111 mL/min/{1.73_m2} Normal >60 [facility] Comment on above: Result Comment: mL/m in/1.73m2 CKD-EPI Creatinine Equation (2020) Performed By: #### L 100.0100, L500.2500, M600.5000 ####[facility] [address] [place], [address] Glucose [Mass/Vol] 67 mg/dL Low 70-99 [facility] Comment on above: Performed By: #### L 100.0100, L500.2500, M600.5000 ####[facility] [address] [place], [address] Potassium [Moles/Vol] 2.6 mmol/L Invalid Interpretation Code 3.3-5.1 [facility] Comment on above: Result Comment: Crit ical Result(s) Called at: 03/25/25-17:07 by: Alex Roldan to Jan Timmons.??Results read back by same. Performed By: #### L 100.0100, L500.2500, M600.5000 ####[facility] [address] [place], [address] Sodium [Moles/Vol] 141 mmol/L Normal 133-145 [facility] Comment on above: Performed By: #### L 100.0100, L500.2500, M600.5000 ####[facility] [address] [place], [address] Urea nitrogen [Mass/Vol] 11 mg/dL Normal 4-19 [facility] Comment on above: Performed By: #### L 100.0100, L500.2500, M600.5000 ####[facility] [address] [place], [address] Basophil percentageOrdered B y: Fina Adame on 03-25-2025 Basophils/100 WBC (Bld) 0.9 % 0-1 [facility] Bilirubin Test strip Ql (U)O rdered By: Fina Adame on 03-25-2025 Bilirubin Ql (U) Negative Negative [facility] CBC W/Diff, Automatedon 03-08 Absolute Lymph 2.12 X10 3/uL Normal 0.83-4.51 [facility] Comment on above: Performed By: #### L 100.0100, L500.2500, M600.5000 ####[facility] [address] [place], [address] Absolute Neut 1.8 X10 3/uL Low 2.0-7.7 [facility] Comment on above: Performed By: #### L 100.0100, L500.2500, M600.5000 ####[facility] [address] [place], [address] Basophils/100 WBC (Bld) 0.9 % Normal 0-1 [facility] Comment on above: Performed By: #### L 100.0100, L500.2500, M600.5000 ####[facility] [address] [place], [address] Eosinophils/100 WBC (Bld) 1.6 % Normal 0-5 [facility] Comment on above: Performed By: #### L 100.0100, L500.2500, M600.5000 ####[facility] [address] [place], [address] Erythrocyte distribution width (RBC) [Ratio] 13.3 % Normal 11.6-14.6 [facility] Comment on above: Performed By: #### L 100.0100, L500.2500, M600.5000 ####[facility] [address] [place], [address] Hematocrit (Bld) [Volume fraction] 43.1 % Normal 40-54 [facility] Comment on above: Performed By: #### L 100.0100, L500.2500, M600.5000 ####[facility] [address] [place], [address] Hemoglobin (Bld) [Mass/Vol] 14.4 g/dL Normal 13.0-16.5 [facility] Comment on above: Performed By: #### L 100.0100, L500.2500, M600.5000 ####[facility] [address] [place], [address] IG% 0.200 Normal 0.0-0.9 [facility] Comment on above: Result Comment: IG% - Immature Granulocytes (promyelocytes, myelocytes and metamyelocytes) > 1% indicates that a LEFT SHIFT is Present. Performed By: #### L 100.0100, L500.2500, M600.5000 ####[facility] [address] [place], [address] Lymphocytes/100 WBC (Bld) 48.1 % High 19-41 [facility] Comment on above: Performed By: #### L 100.0100, L500.2500, M600.5000 ####[facility] [address] [place], [address] MCH (RBC) [Entitic mass] 28.2 pg Normal 27.0-32.0 [facility] Comment on above: Performed By: #### L 100.0100, L500.2500, M600.5000 ####[facility] [address] [place], [address] MCHC (RBC) [Mass/Vol] 33.4 g/dL Normal 32-36 [facility] Comment on above: Performed By: #### L 100.0100, L500.2500, M600.5000 ####[facility] [address] [place], [address] MCV (RBC) [Entitic vol] 84.3 fL Normal 80-94 [facility] Comment on above: Performed By: #### L 100.0100, L500.2500, M600.5000 ####[facility] [address] [place], [address] Monocytes/100 WBC (Bld) 9.1 % Normal 0-10 [facility] Comment on above: Performed By: #### L 100.0100, L500.2500, M600.5000 ####[facility] [address] [place], [address] Neutrophils/100 WBC (Bld) 40.1 % Low 47-70 [facility] Comment on above: Performed By: #### L 100.0100, L500.2500, M600.5000 ####[facility] [address] [place], [address] Nucleated RBC (Bld) [#/Vol] 0 10*3/uL Normal 0-5 [facility] Comment on above: Performed By: #### L 100.0100, L500.2500, M600.5000 ####[facility] [address] [place], [address] Platelet mean volume (Bld) [Entitic vol] 9.6 fL Normal 6.2-12.0 [facility] Comment on above: Performed By: #### L 100.0100, L500.2500, M600.5000 ####[facility] [address] [place], [address] Platelets (Bld) [#/Vol] 256 10*3/uL Normal 150-450 [facility] Comment on above: Performed By: #### L 100.0100, L500.2500, M600.5000 ####[facility] [address] [place], [address] RBC (Bld) [#/Vol] 5.11 10*6/uL Normal 4.6-6.2 [facility] Comment on above: Performed By: #### L 100.0100, L500.2500, M600.5000 ####[facility] [address] [place], [address] RDW SD 41.2 fl Normal 35.1-43.9 [facility] Comment on above: Performed By: #### L 100.0100, L500.2500, M600.5000 ####[facility] [address] [place], [address] WBC (Bld) [#/Vol] 4.4 10*3/uL Normal 4.4-11.0 [facility] Comment on above: Performed By: #### L 100.0100, L500.2500, M600.5000 ####[facility] [address] [place], [address] CDIFF (PCR)on 03-25-2025 CDIFF Is the patient [...] DNA Spec Ql PATRICIA+probe Reference Range: Negative Formatta GeneXpert: polymerase chain reaction (PCR) 027 027 NAP1-B1 Presumptive Negative *for epidemiolologic???use C. Diff PCR A Positive-Toxigenic C. Difficile Detected A Normal [facility] Comment on above: Performed By: #### M 100.0605, M100.6796, M100.6795, M100.637 ####[facility] [address] [place], [address] Carbon dioxide, total [Moles /volume] in Central venous bloodOrdered By: Fina Adame on 03-25-2025 CO2 [Moles/Vol] 14.4 mmol/L Low 21.0-32.0 [facility] Chloride assayOrdered By: Rea Adame on 03-25-2025 Chloride [Moles/Vol] 119 mmol/L High 98-108 [facility] Clostridium Diff Toxin/Agon 03-25-2025 CDIFF [...] difficile Toxin Negative C. diff Toxin Normal [facility] Comment on above: Performed By: #### M 100.0605, M100.9791, M100.1215, M100631 ####[facility] [address] [place], [address] Clostridium difficile detect ion by polymerase chain reactionOrdered By: Fina Adame on 03-25-2025 C. difficile DNA PATRICIA+probe Ql (Unsp spec) [facility] Emergency Department Summary on 03-25-2025 Emergency Department Summary [facility] Medical Records Department [address] [place] [address] Emergency Department Summary 03/25/25 MR#: [id number] Acct: [id number] Name: JOSÉ MIGUEL YOUNG . Rep #: [id number] : 1965 59 From: Fina SIMPSON PCP: [...] well in that aspect since being home. [facility] Medical History Obesity hypoventilation syndrome Lymphedema [...] Oxygen D (more content not included)... Normal [facility] Eosinophil percentageOrdered By: Fina Adame on 03-25-2025 Eosinophils/100 WBC (Bld) 1.6 % 0-5 [facility] Erythrocyte distribution wid th ratioOrdered By: Fina Adame on 03-25-2025 Erythrocyte distribution width (RBC) [Ratio] 13.3 % 11.6-14.6 [facility] Erythrocyte distribution wid th standard deviationOrdered By: Fina Adame on 03-25-2025 Erythrocyte distribution width (RBC) [Ratio] 41.2 fl 35.1-43.9 [facility] Glomerular filtration rate ( GFR) estimation/1.73 sq m using serum, plasma, or whole bOrdered By: Fina Adame on 03-25-2025 GFR/1.73 sq M.predicted among non-blacks MDRD (S/P/Bld) [Vol rate/Area] 111 mL/min/{1.73_m2} >60 [facility] Comment on above: mL/min/1.73m2 CKD-EP I Creatinine Equation (2020) Hematocrit Auto (Bld) [Volum e fraction]Ordered By: Fina Adame on 03-25-2025 Hematocrit (Bld) [Volume fraction] 43.1 % 40-54 [facility] Hemoglobin measurementOrdere d By: Fina Adame on 03-25-2025 Hemoglobin (Bld) [Mass/Vol] 14.4 g/dL 13.0-16.5 [facility] Immature granulocytes/100 WB C Auto (Bld)Ordered By: Fina Adame on 03-25-2025 Immature granulocytes/100 WBC (Bld) 0.200 % 0.0-0.9 [facility] Comment on above: IG% - Immature Granu locytes (promyelocytes, myelocytes and metamyelocytes) > 1% indicates that a LEFT SHIFT is Present. Ketones Test strip Ql (U)Ord ered By: Fina Adame on 03-25-2025 Ketones Ql (U) Negative Negative [facility] L501.2276on 03-25-2025 Ionized Calcium 1.19 mmol/L Normal 1.09-1.30 [facility] Comment on above: Performed By: #### L 501.2276 ####[facility] [address] [facility] [place], [address] MCV (mean corpuscular volume ) determinationOrdered By: Fina Adame on 03-25-2025 MCV (RBC) [Entitic vol] 84.3 fL 80-94 [facility] Magnesiumon 03-25-2025 Magnesium [Mass/Vol] 2.4 mg/dL High 1.5-2.2 [facility] Comment on above: Performed By: #### L 501.5200, L501.5600 ####[facility] [address] [facility] [place], [address] Magnesium [Mass/Vol] 1.2 mg/dL Low 1.5-2.2 [facility] Comment on above: Performed By: #### L 501.5200 ####[facility] [address] [place], [address] Magnesium measurement (mass/ volume)Ordered By: Fina Adame on 03-25-2025 Magnesium (Unsp spec) [Mass/Vol] 2.4 mg/dL High 1.5-2.2 [facility] Mean corpuscular hemoglobin (MCH) determinationOrdered By: Fina Adame on 03-25-2025 MCH (RBC) [Entitic mass] 28.2 pg 27.0-32.0 [facility] Mean corpuscular hemoglobin concentration (MCHC) determinationOrdered By: Fina Adame on 03-25-2025 MCHC (RBC) [Mass/Vol] 33.4 g/dL 32-36 [facility] Mean platelet volume determi nationOrdered By: Fina Adame on 03-25-2025 Platelet mean volume (Bld) [Entitic vol] 9.6 fL 6.2-12.0 [facility] Microscopic analysis of urin e for red blood cells (RBC)Ordered By: Fina Adame on 03-25-2025 Microscopic analysis of urine for red blood cells (RBC) 0 SEEN /hpf 0-5 [facility] Monocyte percentageOrdered B y: Fina Adame on 03-25-2025 Monocytes/100 WBC (Bld) 9.1 % 0-10 [facility] Mucus LM Ql (Urine sed)Order ed By: Fina Adame on 03-25-2025 Mucus Ql (Urine sed) 0 SEEN /hpf [facility] Neutrophil percentageOrdered By: Fina Adame on 03-25-2025 Neutrophils/100 WBC (Bld) 40.1 % Low 47-70 [facility] Nitrite Test strip Ql (U)Ord ered By: Fina Adame on 03-25-2025 Nitrite Ql (U) Negative Negative [facility] Nucleated red blood cell per centageOrdered By: Fina Adame on 03-25-2025 Nucleated RBC/100 WBC (Bld) [Ratio] 0 % 0-5 [facility] Platelet countOrdered By: Rea Adame on 03-25-2025 Platelets (Bld) [#/Vol] 256 10*3/uL 150-450 [facility] Potassiumon 03-25-2025 Potassium [Moles/Vol] 4.1 mmol/L Normal 3.3-5.1 [facility] Comment on above: Performed By: #### L 501.5200, L501.5600 ####[facility] [address] [place], [address] Potassium measurement (mass/ volume)Ordered By: Fina Adame on 03-25-2025 Potassium (Unsp spec) [Mass/Vol] 4.1 mmol/L 3.3-5.1 [facility] Protein Test strip Ql (U)Ord ered By: Fina Adame on 03-25-2025 Protein Ql (U) 15 mg/dl High Negative [facility] RBC Auto (Bld) [#/Vol]Ordere d By: Fina Adame on 03-25-2025 RBC (Bld) [#/Vol] 5.11 10*6/uL 4.6-6.2 [facility] Serum creatinine measurement (mass/volume)Ordered By: Fina Adame on 03-25-2025 Creatinine [Mass/Vol] 0.61 mg/dL Low 0.70-1.20 [facility] Serum glucose measurement (m ass/volume)Ordered By: Fina Adame on 03-25-2025 Glucose [Mass/Vol] 67 mg/dL Low 70-99 [facility] Serum or plasma calcium silvia urement (mass/volume)Ordered By: Fina Adame on 03-25-2025 Calcium [Mass/Vol] 5.5 mg/dL Low 7.6-11.0 [facility] Comment on above: Critical Result(s) C alled at: by: Results read back by same. Serum or plasma urea nitroge n measurement (mass/volume)Ordered By: Fina Adame on 03-25-2025 Urea nitrogen [Mass/Vol] 11 mg/dL 4-19 [facility] Sodium levelOrdered By: Alex Adame on 03-25-2025 Sodium [Moles/Vol] 141 mmol/L 133-145 [facility] Squamous epithelial cells de tection in urine sediment by light microscopyOrdered By: Fina Adame on 03-25-2025 Epithelial cells.squamous LM Ql (Urine sed) 0 SEEN /hpf 0-5 [facility] Stool Clostridium difficile detectionOrdered By: Fina Adame on 03-25-2025 C. difficile Ql (Stl) [facility] Stool Lactoferrin/WBCon 03-08 WBCST Is the patient recei ving laxatives? N New/unexplained onset of 3 or more stools in past 24 hrs? Y Normal Reference Range = Negative Fecal WBC Lactoferrin Negative: No Fecal WBC Lactoferrin present Normal [facility] Comment on above: Performed By: #### M 100.0605, M100.6796, M100.6795, M100.637 ####[facility] [address] [place], [address] Stool lactoferrin detection by immunoassayOrdered By: Fina Adame on 03-25-2025 Lactoferrin IA Ql (Stl) [facility] Urinalysis, Completeon 03-25 BACTERIA 0 SEEN Normal None Seen [facility] Comment on above: Order Comment: ANUPAM DE SANTIAGOOR TO SPECIFY Performed By: #### L 400.0001 ####[facility] [address] [place], [address] EPI,SQUAMOUS 0 SEEN Normal 0-5 [facility] Comment on above: Order Comment: ANUPAM CTOR TO SPECIFY Performed By: #### L 400.0001 ####[facility] [address] [place], [address] Mucus Ql (Urine sed) 0 SEEN Normal [facility] Comment on above: Order Comment: ANUPAM CTOR TO SPECIFY Performed By: #### L 400.0001 ####[facility] [address] [place], [address] RBC 0 SEEN Normal 0-5 [facility] Comment on above: Order Comment: ANUPAM CTOR TO SPECIFY Performed By: #### L 400.0001 ####[facility] [address] [place], [address] WBC 0 SEEN Normal 0-5 [facility] Comment on above: Order Comment: COLLE CTOR TO SPECIFY Performed By: #### L 400.0001 ####[facility] [address] [place], [address] Urine clarityOrdered By: Jefferson Adame on 03-25-2025 Clarity (U) Clear Clear [facility] Urine color determinationOrd ered By: Fina Adame on 03-25-2025 Color (U) Yellow Yellow [facility] Urine glucose detectionOrder ed By: Fina Adame on 03-25-2025 Glucose Ql (U) Normal mg/dl Normal [facility] Urine leukocyte esterase det ection by dipstickOrdered By: Fina Adame on 03-25-2025 Leukocyte esterase Test strip Ql (U) Negative Negative [facility] Urine pHOrdered By: Susie Adame on 03-25-2025 pH (U) 6.0 [pH] 5.0 - 8.0 [facility] Urine sediment bacteria coun t by microscopy (number/high power field)Ordered By: Fina Adame on 03-25-2025 Bacteria LM.HPF (Urine sed) [#/Area] 0 /[HPF] None Seen [facility] Urine specific gravity measu rementOrdered By: Fina Adame on 03-25-2025 Specific gravity (U) [Rel density] 1.015 1.002-1.030 [facility] Urine urobilinogen measureme ntOrdered By: Fina Adame on 03-25-2025 Urobilinogen Ql (U) Normal mg/dl Normal [facility] White blood cell (WBC) count Ordered By: Fina Adame on 03-25-2025 WBC (Bld) [#/Vol] 4.4 10*3/uL 4.4-11.0 [facility] White blood cell countOrdere d By: Fina Adame on 03-25-2025 White blood cell count 0 SEEN /hpf 0-5 [facility] Anion gap in Serum or Plasma Ordered By: Malcom Madsen on 03-22-2025 Anion gap [Moles/Vol] 10 mmol/L 03-22 [facility] BUN/creatinine ratioOrdered By: Malcom Madsen on 03-22-2025 Urea nitrogen/Creatinine [Mass ratio] 16.4 mg/mg 08-27 [facility] Basic Metabolic Profile (BMP )on 03-22-2025 BUN/CRE 16.4 RATIO Normal 08-27 [facility] Comment on above: Performed By: #### L 500.2500 ####[facility] [address] [place], [address] Calcium [Mass/Vol] 9.1 mg/dL Normal 7.6-11.0 [facility] Comment on above: Performed By: #### L 500.2500 ####[facility] [address] [place], [address] Chloride [Moles/Vol] 96 mmol/L Low 98-108 [facility] Comment on above: Performed By: #### L 500.2500 ####[facility] [address] [place], [address] CO2 [Moles/Vol] 30.9 mmol/L Normal 21.0-32.0 [facility] Comment on above: Performed By: #### L 500.2500 ####[facility] [address] [place], [address] Creatinine [Mass/Vol] 1.07 mg/dL Normal 0.70-1.20 [facility] Comment on above: Performed By: #### L 500.2500 ####[facility] [address] [place], [address] ECRCL 104.28 ml/min Normal 50-250 [facility] Comment on above: Performed By: #### L 500.2500 ####[facility] [address] [place], [address] GAP 10 Normal 03-22 [facility] Comment on above: Performed By: #### L 500.2500 ####[facility] [address] [place], [address] GFR/1.73 sq M.predicted among non-blacks MDRD (S/P/Bld) [Vol rate/Area] 80 mL/min/{1.73_m2} Normal >60 [facility] Comment on above: Result Comment: mL/m in/1.73m2 CKD-EPI Creatinine Equation (2020) Performed By: #### L 500.2500 ####[facility] [address] [place], [address] Glucose [Mass/Vol] 138 mg/dL High 70-99 [facility] Comment on above: Performed By: #### L 500.2500 ####[facility] [address] [place], [address] Potassium [Moles/Vol] 3.7 mmol/L Normal 3.3-5.1 [facility] Comment on above: Result Comment: Hemo lysis present, Results??could be affected. ?? Performed By: #### L 500.2500 ####[facility] [address] [place], [address] Sodium [Moles/Vol] 137 mmol/L Normal 133-145 [facility] Comment on above: Performed By: #### L 500.2500 ####[facility] [address] [place], [address] Urea nitrogen [Mass/Vol] 18 mg/dL Normal 4-19 [facility] Comment on above: Performed By: #### L 500.2500 ####[facility] [address] [place], [address] CNPFlaca 03-22-2025 MELIAN Telephone (FAMPWS) -- JOSÉ MIGUEL YOUNG SR. ([id number]) 1965 M Date Time Provider Department 03/22/25 PIERCE WELLS During your visit today, we recorded the following information about you: Braeden Valdes RN 03/22/2025 4:56 PM Signed Patient is currently at [facility] hospital to be discharging possibly today. Spouse calls to request a referral to [facility]. She reports that last time patient was at [facility] they referred to [facility] for Afib and she has contacted them three times with no return call to schedule an appointment. Spouse requests call back at [phone] to schedule. Patient scheduled for Hospital Follow [...] [I48.91] Order(s):CONSULT TO CARDIOLOGY [9004] Order #: [id number]: 1 FUTURE Prescriptions as of 03/23/2025 - [...] Status:Closed by BRAEDEN VALDES on 03/23/25 Normal [facility] Carbon dioxide, total [Moles /volume] in Central venous bloodOrdered By: Malcom Madsen on 03-22-2025 CO2 [Moles/Vol] 30.9 mmol/L 21.0-32.0 [facility] Chloride assayOrdered By: Bill Madsen on 03-22-2025 Chloride [Moles/Vol] 96 mmol/L Low 98-108 [facility] Discharge Instructionon 03-08 Discharge Instruction [facility] Medical Records Department [address] [place] [address] Instructions for Home/Discharge Instructions 03/22/25 1450 MR#: [id number] Acct: [id number] Name: JOSÉ MIGUEL YOUNG . Rep #: [id number] : 1965 59 From: Zoë Khan MD [...] DO; Dr. Pierce Wells MD Signed Normal [facility] Glomerular filtration rate ( GFR) estimation/1.73 sq m using serum, plasma, or whole bOrdered By: Malcom Madsen on 03-22-2025 GFR/1.73 sq M.predicted among non-blacks MDRD (S/P/Bld) [Vol rate/Area] 80 mL/min/{1.73_m2} >60 [facility] Comment on above: mL/min/1.73m2 CKD-EP I Creatinine Equation (2020) Potassium measurement (mass/ volume)Ordered By: Malcom Madsen on 03-22-2025 Potassium (Unsp spec) [Mass/Vol] 3.7 mmol/L 3.3-5.1 [facility] Comment on above: Hemolysis present, R esults could be affected. Serum creatinine measurement (mass/volume)Ordered By: Malcom Madsen on 03-22-2025 Creatinine [Mass/Vol] 1.07 mg/dL 0.70-1.20 [facility] Serum glucose measurement (m ass/volume)Ordered By: Malcom Madsen on 03-22-2025 Glucose [Mass/Vol] 138 mg/dL High 70-99 [facility] Serum or plasma calcium silvia urement (mass/volume)Ordered By: Malcom Madsen on 03-22-2025 Calcium [Mass/Vol] 9.1 mg/dL 7.6-11.0 [facility] Serum or plasma urea nitroge n measurement (mass/volume)Ordered By: Malcom Madsen on 03-22-2025 Urea nitrogen [Mass/Vol] 18 mg/dL 4-19 [facility] Sodium levelOrdered By: Malcom Madsen on 03-22-2025 Sodium [Moles/Vol] 137 mmol/L 133-145 [facility] Basic Metabolic Profile (BMP )on 03-21-2025 BUN/CRE 16.3 RATIO Normal 10-20 [facility] Comment on above: Performed By: #### L 500.2500 ####[facility] [address] [facility] [address] Calcium [Mass/Vol] 9.4 mg/dL Normal 7.6-11.0 [facility] Comment on above: Performed By: #### L 500.2500 ####[facility] [address] [place], [address] Chloride [Moles/Vol] 98 mmol/L Normal 98-108 [facility] Comment on above: Performed By: #### L 500.2500 ####[facility] [address] [place], [address] CO2 [Moles/Vol] 28.3 mmol/L Normal 21.0-32.0 [facility] Comment on above: Performed By: #### L 500.2500 ####[facility] [address] [place], [address] Creatinine [Mass/Vol] 0.94 mg/dL Normal 0.70-1.20 [facility] Comment on above: Performed By: #### L 500.2500 ####[facility] [address] [place], [address] ECRCL 119.66 ml/min Normal 50-250 [facility] Comment on above: Performed By: #### L 500.2500 ####[facility] [address] [place], [address] GAP 12 Normal 5-15 [facility] Comment on above: Performed By: #### L 500.2500 ####[facility] [address] [place], [address] GFR/1.73 sq M.predicted among non-blacks MDRD (S/P/Bld) [Vol rate/Area] 93 mL/min/{1.73_m2} Normal >60 [facility] Comment on above: Result Comment: mL/m in/1.73m2 CKD-EPI Creatinine Equation (2020) Performed By: #### L 500.2500 ####[facility] [address] [place], [address] Glucose [Mass/Vol] 129 mg/dL High 70-99 [facility] Comment on above: Performed By: #### L 500.2500 ####[facility] [address] [place], [address] Potassium [Moles/Vol] 3.4 mmol/L Normal 3.3-5.1 [facility] Comment on above: Performed By: #### L 500.2500 ####[facility] [address] [place], [address] Sodium [Moles/Vol] 138 mmol/L Normal 133-145 [facility] Comment on above: Performed By: #### L 500.2500 ####[facility] [address] [place], [address] Urea nitrogen [Mass/Vol] 15 mg/dL Normal 4-19 [facility] Comment on above: Performed By: #### L 500.2500 ####[facility] [address] [place], [address] Basic Metabolic Profile (BMP )on 03-20-2025 BUN/CRE 14.0 RATIO Normal 10-20 [facility] Comment on above: Performed By: #### L 500.2500 ####[facility] [address] [place], [address] Calcium [Mass/Vol] 9.5 mg/dL Normal 7.6-11.0 [facility] Comment on above: Performed By: #### L 500.2500 ####[facility] [address] [place], [address] Chloride [Moles/Vol] 98 mmol/L Normal 98-108 [facility] Comment on above: Performed By: #### L 500.2500 ####[facility] [address] [place], [address] CO2 [Moles/Vol] 26.1 mmol/L Normal 21.0-32.0 [facility] Comment on above: Performed By: #### L 500.2500 ####[facility] [address] [place], [address] Creatinine [Mass/Vol] 0.98 mg/dL Normal 0.70-1.20 [facility] Comment on above: Performed By: #### L 500.2500 ####[facility] [address] [place], [address] ECRCL 117.25 ml/min Normal 50-250 [facility] Comment on above: Performed By: #### L 500.2500 ####[facility] [address] [place], [address] GAP 14 Normal 5-15 [facility] Comment on above: Performed By: #### L 500.2500 ####[facility] [address] [place], [address] GFR/1.73 sq M.predicted among non-blacks MDRD (S/P/Bld) [Vol rate/Area] 89 mL/min/{1.73_m2} Normal >60 [facility] Comment on above: Result Comment: mL/m in/1.73m2 CKD-EPI Creatinine Equation (2020) Performed By: #### L 500.2500 ####[facility] [address] [place], [address] Glucose [Mass/Vol] 118 mg/dL High 70-99 [facility] Comment on above: Performed By: #### L 500.2500 ####[facility] [address] [place], [address] Potassium [Moles/Vol] 3.5 mmol/L Normal 3.3-5.1 [facility] Comment on above: Performed By: #### L 500.2500 ####[facility] [address] [place], [address] Sodium [Moles/Vol] 138 mmol/L Normal 133-145 [facility] Comment on above: Performed By: #### L 500.2500 ####[facility] [address] [place], [address] Urea nitrogen [Mass/Vol] 14 mg/dL Normal 4-19 [facility] Comment on above: Performed By: #### L 500.2500 ####[facility] [address] [place], [address] Absolute lymphocyte countOrd ered By: Thierno Estrada on 03-19-2025 Lymphocytes Auto (Unsp spec) [#/Vol] 1.25 10*3/uL 0.83-4.51 [facility] Absolute neutrophil countOrd ered By: Thierno Estrada on 03-19-2025 Neutrophils (Bld) [#/Vol] 4.2 10*3/uL 2.0-7.7 [facility] Automated lymphocyte count a s percentage of total leukocytesOrdered By: Thierno Estrada on 03-19-2025 Lymphocytes/100 WBC Auto (Unsp spec) 20.9 % 19-41 [facility] Basophil percentageOrdered B y: Thierno Estrada on 03-19-2025 Basophils/100 WBC (Bld) 0.5 % 0-1 [facility] Bilirubin, totalOrdered By: Thierno Estrada on 03-19-2025 Bilirubin [Mass/Vol] 1.74 mg/dL High 0.00-1.30 [facility] CBC W/Diff, Automatedon 03-08 Absolute Lymph 1.25 X10 3/uL Normal 0.83-4.51 [facility] Comment on above: Performed By: #### L 100.0100, L500.4050, L503.7505 ####[facility] [address] [place], [address] Absolute Neut 4.2 X10 3/uL Normal 2.0-7.7 [facility] Comment on above: Performed By: #### L 100.0100, L500.4050, L503.7505 ####[facility] [address] [place], [address] Basophils/100 WBC (Bld) 0.5 % Normal 0-1 [facility] Comment on above: Performed By: #### L 100.0100, L500.4050, L503.7505 ####[facility] [address] [place], [address] Eosinophils/100 WBC (Bld) 0.8 % Normal 0-5 [facility] Comment on above: Performed By: #### L 100.0100, L500.4050, L503.7505 ####[facility] [address] [place], [address] Erythrocyte distribution width (RBC) [Ratio] 14.0 % Normal 11.6-14.6 [facility] Comment on above: Performed By: #### L 100.0100, L500.4050, L503.7505 ####[facility] [address] [place], [address] Hematocrit (Bld) [Volume fraction] 38.3 % Low 40-54 [facility] Comment on above: Performed By: #### L 100.0100, L500.4050, L503.7505 ####[facility] [address] [place], [address] Hemoglobin (Bld) [Mass/Vol] 12.3 g/dL Low 13.0-16.5 [facility] Comment on above: Performed By: #### L 100.0100, L500.4050, L503.7505 ####[facility] [address] [place], [address] IG% 0.300 Normal 0.0-0.9 [facility] Comment on above: Result Comment: IG% - Immature Granulocytes (promyelocytes, myelocytes and metamyelocytes) > 1% indicates that a LEFT SHIFT is Present. Performed By: #### L 100.0100, L500.4050, L503.7505 ####[facility] [address] [place], [address] Lymphocytes/100 WBC (Bld) 20.9 % Normal 19-41 [facility] Comment on above: Performed By: #### L 100.0100, L500.4050, L503.7505 ####[facility] [address] [place], [address] MCH (RBC) [Entitic mass] 28.4 pg Normal 27.0-32.0 [facility] Comment on above: Performed By: #### L 100.0100, L500.4050, L503.7505 ####[facility] [address] [place], [address] MCHC (RBC) [Mass/Vol] 32.1 g/dL Normal 32-36 [facility] Comment on above: Performed By: #### L 100.0100, L500.4050, L503.7505 ####[facility] [address] [place], [address] MCV (RBC) [Entitic vol] 88.5 fL Normal 80-94 [facility] Comment on above: Performed By: #### L 100.0100, L500.4050, L503.7505 ####[facility] [address] [place], [address] Monocytes/100 WBC (Bld) 6.7 % Normal 0-10 [facility] Comment on above: Performed By: #### L 100.0100, L500.4050, L503.7505 ####[facility] [address] [place], [address] Neutrophils/100 WBC (Bld) 70.8 % High 47-70 [facility] Comment on above: Performed By: #### L 100.0100, L500.4050, L503.7505 ####[facility] [address] [place], [address] Nucleated RBC (Bld) [#/Vol] 0 10*3/uL Normal 0-5 [facility] Comment on above: Performed By: #### L 100.0100, L500.4050, L503.7505 ####[facility] [address] [place], [address] Platelet mean volume (Bld) [Entitic vol] 10.3 fL Normal 6.2-12.0 [facility] Comment on above: Performed By: #### L 100.0100, L500.4050, L503.7505 ####[facility] [address] [place], [address] Platelets (Bld) [#/Vol] 220 10*3/uL Normal 150-450 [facility] Comment on above: Performed By: #### L 100.0100, L500.4050, L503.7505 ####[facility] [address] [place], [address] RBC (Bld) [#/Vol] 4.33 10*6/uL Low 4.6-6.2 [facility] Comment on above: Performed By: #### L 100.0100, L500.4050, L503.7505 ####[facility] [address] [place], [address] RDW SD 45.2 fl High 35.1-43.9 [facility] Comment on above: Performed By: #### L 100.0100, L500.4050, L503.7505 ####[facility] [address] [place], [address] WBC (Bld) [#/Vol] 6.0 10*3/uL Normal 4.4-11.0 [facility] Comment on above: Performed By: #### L 100.0100, L500.4050, L503.7505 ####[facility] [address] [place], [address] CO2 (BldV) [Moles/Vol]Ordere d By: Malcom Madsen on 03-19-2025 CO2 [Moles/Vol] 36 mmol/L High 23-33 [facility] Chest 1 View (Portable)on Chest 1 View (Portable) [facility] Imaging Services [address] [place] [address] Chest 1 View (Portable) MR#: [id number] Acct: [id number] Name: JOSÉ MIGUEL YOUNG Sr. Rep #: [id number] : 1965 M 59 From: Luis Eduardo Goel MD PCP: Dr. Pierce Wells MD Status: ADM CHAGO Study: Chest 1 View (Portable) Date of Exam: 03/19/25 Exam# [id number] Ordering Dr: Thierno Campos DO PROCEDURE: CHEST [...] is again enlarged for technique. Reading Location: [id number] CC: Dr. Thierno Campos DO; Dr. Pierce Wells MD Transportation Modeler: Signed Normal [facility] Comprehensive Metabolic Prof ilon 03-19-2025 Albumin [Mass/Vol] 4.2 g/dL Normal 3.5-5.0 [facility] Comment on above: Performed By: #### L 100.0100, L500.4050, L503.7505 ####[facility] [address] [place], [address] Albumin/Globulin [Mass ratio] 1.4 {ratio} Normal 0.9-2.4 [facility] Comment on above: Performed By: #### L 100.0100, L500.4050, L503.7505 ####[facility] [address] [place], [address] ALK PHOS 54 U/L Normal 40-129 [facility] Comment on above: Performed By: #### L 100.0100, L500.4050, L503.7505 ####[facility] [address] [place], [address] ALT [Catalytic activity/Vol] 26 U/L Normal <=46 [facility] Comment on above: Performed By: #### L 100.0100, L500.4050, L503.7505 ####[facility] [address] [place], [address] AST [Catalytic activity/Vol] 43 U/L High <=37 [facility] Comment on above: Performed By: #### L 100.0100, L500.4050, L503.7505 ####[facility] [address] [place], [address] Bilirubin [Mass/Vol] 1.74 mg/dL High 0.00-1.30 [facility] Comment on above: Performed By: #### L 100.0100, L500.4050, L503.7505 ####[facility] [address] [place], [address] BUN/CRE 13.5 RATIO Normal 10-20 [facility] Comment on above: Performed By: #### L 100.0100, L500.4050, L503.7505 ####[facility] [address] [place], [address] Calcium [Mass/Vol] 9.4 mg/dL Normal 7.6-11.0 [facility] Comment on above: Performed By: #### L 100.0100, L500.4050, L503.7505 ####[facility] [address] [place], [address] Chloride [Moles/Vol] 101 mmol/L Normal 98-108 [facility] Comment on above: Performed By: #### L 100.0100, L500.4050, L503.7505 ####[facility] [address] [place], [address] CO2 [Moles/Vol] 23.8 mmol/L Normal 21.0-32.0 [facility] Comment on above: Performed By: #### L 100.0100, L500.4050, L503.7505 ####[facility] [address] [place], [address] Creatinine [Mass/Vol] 1.14 mg/dL Normal 0.70-1.20 [facility] Comment on above: Performed By: #### L 100.0100, L500.4050, L503.7505 ####[facility] [address] [place], [address] ECRCL 100.80 ml/min Normal 50-250 [facility] Comment on above: Performed By: #### L 100.0100, L500.4050, L503.7505 ####[facility] [address] [place], [address] GAP 13 Normal 5-15 [facility] Comment on above: Performed By: #### L 100.0100, L500.4050, L503.7505 ####[facility] [address] [place], [address] GFR/1.73 sq M.predicted among non-blacks MDRD (S/P/Bld) [Vol rate/Area] 74 mL/min/{1.73_m2} Normal >60 [facility] Comment on above: Result Comment: mL/m in/1.73m2 CKD-EPI Creatinine Equation (2020) Performed By: #### L 100.0100, L500.4050, L503.7505 ####[facility] [address] [place], [address] Globulin (S) [Mass/Vol] 3.1 g/dL Normal 2.2-4.2 [facility] Comment on above: Performed By: #### L 100.0100, L500.4050, L503.7505 ####[facility] [address] [place], [address] Glucose [Mass/Vol] 126 mg/dL High 70-99 [facility] Comment on above: Performed By: #### L 100.0100, L500.4050, L503.7505 ####[facility] [address] [place], [address] Potassium [Moles/Vol] 3.7 mmol/L Normal 3.3-5.1 [facility] Comment on above: Performed By: #### L 100.0100, L500.4050, L503.7505 ####[facility] [address] [place], [address] Sodium [Moles/Vol] 138 mmol/L Normal 133-145 [facility] Comment on above: Performed By: #### L 100.0100, L500.4050, L503.7505 ####[facility] [address] [place], [address] T PROT 7.4 g/dL Normal 5.9-8.4 [facility] Comment on above: Performed By: #### L 100.0100, L500.4050, L503.7505 ####[facility] [address] [place], [address] Urea nitrogen [Mass/Vol] 15 mg/dL Normal 4-19 [facility] Comment on above: Performed By: #### L 100.0100, L500.4050, L503.7505 ####[facility] [address] [place], [address] Electrocardiogram reportOrde red By: Jesse Sosa on 03-19-2025 EKG study [facility] Cardiovascular Services [address] [place] [address] 12 Lead EKG 03/18/251944 MR#: [id number] Acct: [id number] Name: JOSÉ MIGUEL YOUNG Sr. Rep #: [id number] : 1965 59 From: Jesse cain MD [...] Abnormal ECG Confirmed by Jesse Sosa ([id number]), book or script editor ANGELA RIZO ([id number]) on :25:10 AM Referred By: DC Confirmed By: Jesse Sosa 03/19/25 0925 Date _ Jesse Sosa MD CC: Dr. Lyle Moise MD; Dr. Malcom Madsen DO; Dr. Pierce Wells MD ~ Signed [facility] Other Phone: Eosinophil percentageOrdered By: Thierno Estrada on 03-19-2025 Eosinophils/100 WBC (Bld) 0.8 % 0-5 [facility] Erythrocyte distribution wid th ratioOrdered By: Thierno Estrada on 03-19-2025 Erythrocyte distribution width (RBC) [Ratio] 14.0 % 11.6-14.6 [facility] Erythrocyte distribution wid th standard deviationOrdered By: Thierno Estrada on 03-19-2025 Erythrocyte distribution width (RBC) [Ratio] 45.2 fl High 35.1-43.9 [facility] Hematocrit Auto (Bld) [Volum e fraction]Ordered By: Thierno sEtrada on 03-19-2025 Hematocrit (Bld) [Volume fraction] 38.3 % Low 40-54 [facility] Hemoglobin measurementOrdere d By: Thierno Estrada on 03-19-2025 Hemoglobin (Bld) [Mass/Vol] 12.3 g/dL Low 13.0-16.5 [facility] Immature granulocytes/100 WB C Auto (Bld)Ordered By: Thierno Estrada on 03-19-2025 Immature granulocytes/100 WBC (Bld) 0.300 % 0.0-0.9 [facility] Comment on above: IG% - Immature Granu locytes (promyelocytes, myelocytes and metamyelocytes) > 1% indicates that a LEFT SHIFT is Present. L499.0043on 03-19-2025 Trop T High Sen 23 ng/L High <=22 [facility] Comment on above: Performed By: #### L 499.0043 ####[facility] [address] [place], [address] L503.7505on 03-19-2025 Natriuretic peptide B (Bld) [Mass/Vol] 1747 pg/mL High <=900 [facility] Comment on above: Result Comment: Hear t Failure Unlikely: < 300 pg/mL Heart Failure Likely < 50 Years: > 450 pg/mL 50-75 Years: > 900 pg/mL >75 Years: > 1800 pg/mL Performed By: #### L 100.0100, L500.4050, L503.7505 ####[facility] [address] [place], [address] Laboratory - Chemistry and C hemistry - challengeOrdered By: Thierno Estrada on 03-19-2025 AST [Catalytic activity/Vol] 43 U/L High <38 [facility] MCV (mean corpuscular volume ) determinationOrdered By: Thierno Estrada on 03-19-2025 MCV (RBC) [Entitic vol] 88.5 fL 80-94 [facility] Mean corpuscular hemoglobin (MCH) determinationOrdered By: Thierno Estrada on 03-19-2025 MCH (RBC) [Entitic mass] 28.4 pg 27.0-32.0 [facility] Mean corpuscular hemoglobin concentration (MCHC) determinationOrdered By: Thierno Estrada on 03-19-2025 MCHC (RBC) [Mass/Vol] 32.1 g/dL 32-36 [facility] Mean platelet volume determi nationOrdered By: Thierno Estrada on 03-19-2025 Platelet mean volume (Bld) [Entitic vol] 10.3 fL 6.2-12.0 [facility] Monocyte percentageOrdered B y: Thierno Estrada on 03-19-2025 Monocytes/100 WBC (Bld) 6.7 % 0-10 [facility] Natriuretic peptide.B prohor nicola N-Terminal [Mass/volume] in Serum or PlasmaOrdered By: Thierno Estrada on 03-19-2025 Natriuretic peptide.B prohormone N-Terminal [Mass/Vol] 1747 pg/mL High <900 [facility] Comment on above: Heart Failure Unlike ly: < 300 pg/mLHeart Failure Likely< 50 Years: > 450 pg/mL50-75 Years: > 900 pg/mL>75 Years: > 1800 pg/mL Neutrophil percentageOrdered By: Thierno Estrada on 03-19-2025 Neutrophils/100 WBC (Bld) 70.8 % High 47-70 [facility] No Panel InformationOrdered By: Malcom Madsen on 03-19-2025 Blood Gas Sample Site Not entered [facility] Blood Gas Specimen Type CANDICE [facility] Oxygen Delivery Device Not entered [facility] Nucleated red blood cell per centageOrdered By: Thierno Estrada on 03-19-2025 Nucleated RBC/100 WBC (Bld) [Ratio] 0 % 0-5 [facility] Phosphoruson 03-19-2025 Phosphate [Mass/Vol] 3.2 mg/dL Normal 2.7-4.5 [facility] Comment on above: Performed By: #### L 501.2300 ####[facility] [address] [place], [place], [address] Platelet countOrdered By: Arcadio Estrada on 03-19-2025 Platelets (Bld) [#/Vol] 220 10*3/uL 150-450 [facility] RBC Auto (Bld) [#/Vol]Ordere d By: Thierno Estrada on 03-19-2025 RBC (Bld) [#/Vol] 4.33 10*6/uL Low 4.6-6.2 [facility] Serum globulin measurementOr dered By: Thierno Estrada on 03-19-2025 Globulin (S) [Mass/Vol] 3.1 g/dL 2.2-4.2 [facility] Serum or plasma alanine chu otransferase (ALT) measurementOrdered By: Thierno Estrada on 03-19-2025 ALT [Catalytic activity/Vol] 26 U/L <47 [facility] Serum or plasma albumin silvia urement (mass/volume)Ordered By: Thierno Estrada on 03-19-2025 Albumin [Mass/Vol] 4.2 g/dL 3.5-5.0 [facility] Serum or plasma albumin/glob ulin mass ratioOrdered By: Thierno Estrada on 03-19-2025 Albumin/Globulin [Mass ratio] 1.4 {ratio} 0.9-2.4 [facility] Serum or plasma alkaline karon sphatase measurementOrdered By: Thierno Estrada on 03-19-2025 ALP [Catalytic activity/Vol] 54 U/L 40-129 [facility] Total proteinOrdered By: Joey Estrada on 03-19-2025 Protein [Mass/Vol] 7.4 g/dL 5.9-8.4 [facility] Venous Blood Gason Blood Gas Type CANDICE [facility] Comment on above: Performed By: #### L 9000.0810 ####[facility] [address] [place], [address] CO2 [Moles/Vol] 36 mmol/L High 23-33 [facility] Comment on above: Performed By: #### L 9000.0810 ####[facility] [address] [place], [address] HCO3 (Bld) [Moles/Vol] 35 mmol/L High 22-26 [facility] Comment on above: Performed By: #### L 9000.0810 ####[facility] [address] [place], [address] O2 Delivery Dev Not entered [facility] Comment on above: Performed By: #### L 9000.0810 ####[facility] [address] [place], [address] SITE Not entered [facility] Comment on above: Performed By: #### L 9000.0810 ####[facility] [address] [place], [address] VBG BE 9 mmol/L High -1.0-3.5 [facility] Comment on above: Performed By: #### L 9000.0810 ####[facility] [address] [place], [address] VBG pCO2 62.4 mmHg High 41-51 [facility] Comment on above: Performed By: #### L 9000.0810 ####[facility] [address] [place], [place], [address] VBG pH 7.35 Normal 7.32-7.42 [facility] Comment on above: Performed By: #### L 9000.0810 ####[facility] [address] [place], [place], [address] VBG PO2 105 mmHg High 25-40 [facility] Comment on above: Performed By: #### L 9000.0810 ####[facility] [address] [place], [place], [id number] VBG SO2 98 High 50-70 [facility] Comment on above: Performed By: #### L 9000.0810 ####[facility] [address] [place], [place], [address] Venous blood base excess vicki surementOrdered By: Malcom Madsen on 03-19-2025 Base excess Calc (BldV) [Moles/Vol] 9 mmol/L High -1.0-3.5 [facility] Venous blood bicarbonate vicki surementOrdered By: Malcom Madsen on 03-19-2025 HCO3 (Bld) [Moles/Vol] 35 mmol/L High 22-26 [facility] Venous blood oxygen saturati on measurementOrdered By: Malcom Madsen on 03-19-2025 Oxygen saturation in Blood 98 % High 50-70 [facility] Venous blood pH measurementO rdered By: Malcom Madsen on 03-19-2025 pH (BldV) 7.35 [pH] 7.32-7.42 [facility] Venous blood partial pressur e of carbon dioxide measurementOrdered By: Malcom Madsen on 03-19-2025 CO2 (BldV) [Partial pressure] 62.4 mm[Hg] High 41-51 [facility] Venous blood partial pressur e of oxygen measurementOrdered By: Malcom Madsen on 03-19-2025 Oxygen (BldV) [Partial pressure] 105 mm[Hg] High 25-40 [facility] White blood cell (WBC) count Ordered By: Thierno Estrada on 03-19-2025 WBC (Bld) [#/Vol] 6.0 10*3/uL 4.4-11.0 [facility] 12 Lead EKGon 03-18-2025 12 Lead EKG [facility] Cardiovascular Services [address] [place] [address] 12 Lead EKG 03/18/251944 MR#: [id number] Acct: [id number] Name: JOSÉ MIGUEL YOUNG Sr. Rep #: [id number] : 1965 59 From: Jesse Sosa MD Attending Dr: Dr. Malcom Madsen DO Status: ADM CHAGO Ordering Dr: Lyle Moise MD Date: 03/18/25 Location: [facility] Sex: M C Admitted: 03/18/25 Test Reason : SOB Blood Pressure : */* mmHG Vent. Rate : 88 BPM Atrial Rate : * BPM P-R Int : * ms QRS Dur : 88 ms QT Int : 374 ms P-R-T Axes : * 5 77 degrees QTcB Int : 452 ms Atrial fibrillation Low voltage QRS Abnormal ECG Confirmed by Jesse Sosa ([id number]), book or script editor ANGELA RIZO ([id number]) on 03/19/2025 9:25:10 AM Referred By: DC Confirmed By: Jesse Sosa 03/19/25 0925 Date Jesse Sosa MD CC: Dr. Lyle Moise MD; Dr. Malcom Madsen DO; Dr. Pierce Wells MD Signed Normal [facility] Absolute lymphocyte countOrd ered By: Lyle Moise on 03-18-2025 Lymphocytes Auto (Unsp spec) [#/Vol] 1.33 10*3/uL 0.83-4.51 [facility] Absolute neutrophil countOrd ered By: Lyle Moise on 03-18-2025 Neutrophils (Bld) [#/Vol] 4.5 10*3/uL 2.0-7.7 [facility] Anion gap in Serum or Plasma Ordered By: Lyle Moise on 03-18-2025 Anion gap [Moles/Vol] 11 mmol/L 5-15 [facility] Automated lymphocyte count a s percentage of total leukocytesOrdered By: Lyle Moise on 03-18-2025 Lymphocytes/100 WBC Auto (Unsp spec) 20.9 % 19-41 [facility] BUN/creatinine ratioOrdered By: Lyle Moise on 03-18-2025 Urea nitrogen/Creatinine [Mass ratio] 9.6 mg/mg Low 10-20 [facility] Basophil percentageOrdered B y: Lyle Moise on 03-18-2025 Basophils/100 WBC (Bld) 0.6 % 0- [facility] Bilirubin Test strip Ql (U)O rdered By: Thierno Estrada on 03-18-2025 Bilirubin Ql (U) Negative Negative [facility] Bilirubin, totalOrdered By: Lyle Moise on 03-18-2025 Bilirubin [Mass/Vol] 1.63 mg/dL High 0.00-1.30 [facility] CBC W/Diff, Automatedon 03-08 Absolute Lymph 1.33 X10 3/uL Normal 0.83-4.51 [facility] Comment on above: Performed By: #### L 500.4050, L100.0100, L501.4021, L503.7505 ####[facility] [address] [place], [address] Absolute Neut 4.5 X10 3/uL Normal 2.0-7.7 [facility] Comment on above: Performed By: #### L 500.4050, L100.0100, L501.4021, L503.7505 ####[facility] [address] [place], [address] Basophils/100 WBC (Bld) 0.6 % Normal 0-1 [facility] Comment on above: Performed By: #### L 500.4050, L100.0100, L501.4021, L503.7505 ####[facility] [address] [place], [address] Eosinophils/100 WBC (Bld) 1.3 % Normal 0-5 [facility] Comment on above: Performed By: #### L 500.4050, L100.0100, L501.4021, L503.7505 ####[facility] [address] [place], [address] Erythrocyte distribution width (RBC) [Ratio] 14.2 % Normal 11.6-14.6 [facility] Comment on above: Performed By: #### L 500.4050, L100.0100, L501.4021, L503.7505 ####[facility] [address] [place], [address] Hematocrit (Bld) [Volume fraction] 41.6 % Normal 40-54 [facility] Comment on above: Performed By: #### L 500.4050, L100.0100, L501.4021, L503.7505 ####[facility] [address] [place], [address] Hemoglobin (Bld) [Mass/Vol] 13.4 g/dL Normal 13.0-16.5 [facility] Comment on above: Performed By: #### L 500.4050, L100.0100, L501.4021, L503.7505 ####[facility] [address] [place], [address] IG% 0.200 Normal 0.0-0.9 [facility] Comment on above: Result Comment: IG% - Immature Granulocytes (promyelocytes, myelocytes and metamyelocytes) > 1% indicates that a LEFT SHIFT is Present. Performed By: #### L 500.4050, L100.0100, L501.4021, L503.7505 ####[facility] [address] [place], [address] Lymphocytes/100 WBC (Bld) 20.9 % Normal 19-41 [facility] Comment on above: Performed By: #### L 500.4050, L100.0100, L501.4021, L503.7505 ####[facility] [address] [place], [address] MCH (RBC) [Entitic mass] 29.2 pg Normal 27.0-32.0 [facility] Comment on above: Performed By: #### L 500.4050, L100.0100, L501.4021, L503.7505 ####[facility] [address] [place], [address] MCHC (RBC) [Mass/Vol] 32.2 g/dL Normal 32-36 [facility] Comment on above: Performed By: #### L 500.4050, L100.0100, L501.4021, L503.7505 ####[facility] [address] [place], [address] MCV (RBC) [Entitic vol] 90.6 fL Normal 80-94 [facility] Comment on above: Performed By: #### L 500.4050, L100.0100, L501.4021, L503.7505 ####[facility] [address] [place], [address] Monocytes/100 WBC (Bld) 6.1 % Normal 0-10 [facility] Comment on above: Performed By: #### L 500.4050, L100.0100, L501.4021, L503.7505 ####[facility] [address] [place], [address] Neutrophils/100 WBC (Bld) 70.9 % High 47-70 [facility] Comment on above: Performed By: #### L 500.4050, L100.0100, L501.4021, L503.7505 ####[facility] [address] [place], [address] Nucleated RBC (Bld) [#/Vol] 0 10*3/uL Normal 0-5 [facility] Comment on above: Performed By: #### L 500.4050, L100.0100, L501.4021, L503.7505 ####[facility] [address] [place], [address] Platelet mean volume (Bld) [Entitic vol] 10.7 fL Normal 6.2-12.0 [facility] Comment on above: Performed By: #### L 500.4050, L100.0100, L501.4021, L503.7505 ####[facility] [address] [place], [address] Platelets (Bld) [#/Vol] 246 10*3/uL Normal 150-450 [facility] Comment on above: Performed By: #### L 500.4050, L100.0100, L501.4021, L503.7505 ####[facility] [address] [place], [address] RBC (Bld) [#/Vol] 4.59 10*6/uL Low 4.6-6.2 [facility] Comment on above: Performed By: #### L 500.4050, L100.0100, L501.4021, L503.7505 ####[facility] [address] [place], [address] RDW SD 46.6 fl High 35.1-43.9 [facility] Comment on above: Performed By: #### L 500.4050, L100.0100, L501.4021, L503.7505 ####[facility] [address] [place], [address] WBC (Bld) [#/Vol] 6.4 10*3/uL Normal 4.4-11.0 [facility] Comment on above: Performed By: #### L 500.4050, L100.0100, L501.4021, L503.7505 ####[facility] [address] [place], [address] CO2 (BldV) [Moles/Vol]Ordere d By: Thierno Estrada on 03-18-2025 CO2 [Moles/Vol] 33 mmol/L [facility] CTA Chest W/WO Contraston CTA Chest W/WO Contrast [facility] Imaging Services [address] [place] [address] CTA Chest W/WO Contrast MR#: [id number] Acct: [id number] Name: JOSÉ MIGUEL YOUNG Sr. Rep #: [id number] : 1965 M 59 From: Uriel lund MD PCP: Dr. Pierce Wells MD Status: ADM CHAGO Study: CTA Chest W/WO Contrast Date of Exam: 03/18/25 Exam# [id number] Ordering Dr: Thierno Campos DO PROCEDURE: CTA [...] hypertension. 5. Right adrenal myelolipoma. Reading Location: [facility] CC: Dr. Thierno Campos DO; Dr. Pierce Wells MD Transportation Modeler: Signed Normal [facility] Carbon dioxide, total [Moles /volume] in Central venous bloodOrdered By: Lyel Moise on 03-18-2025 CO2 [Moles/Vol] 23.7 mmol/L 21.0-32.0 [facility] Chest 1 View (Portable)on Chest 1 View (Portable) [facility] Imaging Services [address] [place], [place] [address] Chest 1 View (Portable) MR#: [id number] Acct: [id number] Name: JOSÉ MIGUEL YOUNG . Rep #: [id number] : 1965 M 59 From: Uriel lund MD PCP: Dr. Pierce Wells MD Status: REG ER Study: Chest 1 View (Portable) Date of Exam: 03/18/25 Exam# [id number] Ordering Dr: Lyle Moise MD PROCEDURE: CHEST [...] Findings suggestive of vascular congestion. [facility] CC: Dr. Lyle Moise MD; Dr. Pierce Wells MD Transportation Modeler: Signed Normal [facility] Chloride assayOrdered By: Arcadio Moise on 03-18-2025 Chloride [Moles/Vol] 104 mmol/L 98-108 [facility] Comprehensive Metabolic Prof ilon 03-18-2025 Albumin [Mass/Vol] 4.2 g/dL Normal 3.5-5.0 [facility] Comment on above: Performed By: #### L 500.4050, L100.0100, L501.4021, L503.7505 ####[facility] [address] [place], [address] Albumin/Globulin [Mass ratio] 1.3 {ratio} Normal 0.9-2.4 [facility] Comment on above: Performed By: #### L 500.4050, L100.0100, L501.4021, L503.7505 ####[facility] [address] [place], [address] ALK PHOS 57 U/L Normal 40-129 [facility] Comment on above: Performed By: #### L 500.4050, L100.0100, L501.4021, L503.7505 ####[facility] [address] [place], [address] ALT [Catalytic activity/Vol] 30 U/L Normal <=46 [facility] Comment on above: Performed By: #### L 500.4050, L100.0100, L501.4021, L503.7505 ####[facility] [address] [place], [address] AST [Catalytic activity/Vol] 52 U/L High <=37 [facility] Comment on above: Result Comment: Hemo lysis present, Results??could be affected. ?? Performed By: #### L 500.4050, L100.0100, L501.4021, L503.7505 ####[facility] [address] [place], [address] Bilirubin [Mass/Vol] 1.63 mg/dL High 0.00-1.30 [facility] Comment on above: Performed By: #### L 500.4050, L100.0100, L501.4021, L503.7505 ####[facility] [address] [place], [address] BUN/CRE 9.6 RATIO Low 10-20 [facility] Comment on above: Performed By: #### L 500.4050, L100.0100, L501.4021, L503.7505 ####[facility] [address] [place], [address] Calcium [Mass/Vol] 9.5 mg/dL Normal 7.6-11.0 [facility] Comment on above: Performed By: #### L 500.4050, L100.0100, L501.4021, L503.7505 ####[facility] [address] [place], [address] Chloride [Moles/Vol] 104 mmol/L Normal 98-108 [facility] Comment on above: Performed By: #### L 500.4050, L100.0100, L501.4021, L503.7505 ####[facility] [address] [place], [address] CO2 [Moles/Vol] 23.7 mmol/L Normal 21.0-32.0 [facility] Comment on above: Performed By: #### L 500.4050, L100.0100, L501.4021, L503.7505 ####[facility] [address] [place], [address] Creatinine [Mass/Vol] 1.33 mg/dL High 0.70-1.20 [facility] Comment on above: Performed By: #### L 500.4050, L100.0100, L501.4021, L503.7505 ####[facility] [address] [place], [address] ECRCL 88.10 ml/min Normal 50-250 [facility] Comment on above: Performed By: #### L 500.4050, L100.0100, L501.4021, L503.7505 ####[facility] [address] [place], [address] GAP 11 Normal 5-15 [facility] Comment on above: Performed By: #### L 500.4050, L100.0100, L501.4021, L503.7505 ####[facility] [address] [place], [address] GFR/1.73 sq M.predicted among non-blacks MDRD (S/P/Bld) [Vol rate/Area] 62 mL/min/{1.73_m2} Normal >60 [facility] Comment on above: Result Comment: mL/m in/1.73m2 CKD-EPI Creatinine Equation (2020) Performed By: #### L 500.4050, L100.0100, L501.4021, L503.7505 ####[facility] [address] [place], [address] Globulin (S) [Mass/Vol] 3.4 g/dL Normal 2.2-4.2 [facility] Comment on above: Performed By: #### L 500.4050, L100.0100, L501.4021, L503.7505 ####[facility] [address] [place], [address] Glucose [Mass/Vol] 111 mg/dL High 70-99 [facility] Comment on above: Performed By: #### L 500.4050, L100.0100, L501.4021, L503.7505 ####[facility] [address] [place], [address] Potassium [Moles/Vol] 4.3 mmol/L Normal 3.3-5.1 [facility] Comment on above: Result Comment: Hemo lysis present, Results??could be affected. ?? Performed By: #### L 500.4050, L100.0100, L501.4021, L503.7505 ####[facility] [address] [place], [address] Sodium [Moles/Vol] 139 mmol/L Normal 133-145 [facility] Comment on above: Performed By: #### L 500.4050, L100.0100, L501.4021, L503.7505 ####[facility] [address] [place], [address] T PROT 7.6 g/dL Normal 5.9-8.4 [facility] Comment on above: Performed By: #### L 500.4050, L100.0100, L501.4021, L503.7505 ####[facility] [address] [place], [address] Urea nitrogen [Mass/Vol] 13 mg/dL Normal 4-19 [facility] Comment on above: Performed By: #### L 500.4050, L100.0100, L501.4021, L503.7505 ####[facility] [address] [place], [address] D-Dimer Quantitative (DVT/PE )on 03-18-2025 D-DIMER QUANT 0.73 FEU/ug/m Invalid Interpretation Code 0.27-0.49 [facility] Comment on above: Result Comment: D-Di leticia ELEVATED (>0.49): Additional studies and clinical assessments are indicated to conclude diagnosis of: Deep Vein Thrombosis (DVT) or Pulmonary Embolism (PE) CRITICAL VALUE CALLED TO RENUKA KHAN 03/18/25 2148 Rhianna Dyson. RESULTS READ BACK BY SAME. Performed By: #### L 300.8000, L501.2300, L501.5200 ####[facility] [address] [place], [address] Emergency Department Summary on 03-18-2025 Emergency Department Summary [facility] Medical Records Department [address] [facility] [place] [address] Emergency Department Summary 03/18/25 MR#: [id number] Acct: [id number] Name: JOSÉ MIGUEL YOUNG . Rep #: [id number] : 1965 59 From: Lyle Moise MD [...] Prior similar symptoms: Yes Recent Illness/Hospitalization: Yes [facility] Medical History Lymphedema Obesity hypoventilation syndrome [...] Cannula Oxy (more content not included)... Normal [facility] Eosinophil percentageOrdered By: Lyle Moise on 03-18-2025 Eosinophils/100 WBC (Bld) 1.3 % 0-5 [facility] Erythrocyte distribution wid th ratioOrdered By: Lyle Moise on 03-18-2025 Erythrocyte distribution width (RBC) [Ratio] 14.2 % 11.6-14.6 [facility] Erythrocyte distribution wid th standard deviationOrdered By: Lyle Moise on 03-18-2025 Erythrocyte distribution width (RBC) [Ratio] 46.6 fl High 35.1-43.9 [facility] Glomerular filtration rate ( GFR) estimation/1.73 sq m using serum, plasma, or whole bOrdered By: Lyle Moise on 03-18-2025 GFR/1.73 sq M.predicted among non-blacks MDRD (S/P/Bld) [Vol rate/Area] 62 mL/min/{1.73_m2} >60 [facility] Comment on above: mL/min/1.73m2 CKD-EP I Creatinine Equation (2020) H AND P Exam - [facility] 03-18-2025 H&P Exam - Hospitalist [facility] Medical Records Department [address] [place] [address] H P Exam - Hospitalist 03/18/252106 MR#: [id number] Acct: [id number] Name: JOSÉ MIGUEL YOUNG Sr. Rep #: [id number] : 1965 59 From: Thierno Campos DO PCP: Dr. Pierce Wells MD Status:ADM CHAGO Location: [place] [address] HPI - General General Date of Admission: 03/18/25 Date of Service: 03/18/25 Chief Complaint: SOB. HPI Narrative JOSÉ MIGUEL YOUNG, is a 59 M with a past medical history of essential hypertension; on atenolol- hydrochlorothiazide, nifedipine. losartan and guanfacine, vrxhk-xutzpa-gvgarti; with BMI of 55.7 this admission, history [...] suspicious for DM-2 who now re-presents to [facility] ER complaining of SOB. Mr. [...] expected to be less than 2 midnights [facility] Medical History (Updated 03/19/25 @ 02:51 by [...] deficits. Al (more content not included)... Normal [facility] Hematocrit Auto (Bld) [Volum e fraction]Ordered By: Lyle Moise on 03-18-2025 Hematocrit (Bld) [Volume fraction] 41.6 % 40-54 [facility] Hemoglobin measurementOrdere d By: Lyle Moise on 03-18-2025 Hemoglobin (Bld) [Mass/Vol] 13.4 g/dL 13.0-16.5 [facility] Immature granulocytes/100 WB C Auto (Bld)Ordered By: Lyle Moise on 03-18-2025 Immature granulocytes/100 WBC (Bld) 0.200 % 0.0-0.9 [facility] Comment on above: IG% - Immature Granu locytes (promyelocytes, myelocytes and metamyelocytes) > 1% indicates that a LEFT SHIFT is Present. Ketones Test strip Ql (U)Ord ered By: Thierno Estrada on 03-18-2025 Ketones Ql (U) Negative Negative [facility] L499.0042on 03-18-2025 Trop T High Sen 19 ng/L Normal <=22 [facility] Comment on above: Performed By: #### L 499.0042 ####[facility] [address] [place], [address] L501.4021on 03-18-2025 Trop T High Sen 22 ng/L Normal <=22 [facility] Comment on above: Performed By: #### L 500.4050, L100.0100, L501.4021, L503.7505 ####[facility] [address] [place], [address] L503.7505on 03-18-2025 Natriuretic peptide B (Bld) [Mass/Vol] 1362 pg/mL High <=900 [facility] Comment on above: Result Comment: Hear t Failure Unlikely: < 300 pg/mL Heart Failure Likely < 50 Years: > 450 pg/mL 50-75 Years: > 900 pg/mL >75 Years: > 1800 pg/mL Performed By: #### L 500.4050, L100.0100, L501.4021, L503.7505 ####[facility] [address] [place], [address] Laboratory - Chemistry and C hemistry - challengeOrdered By: Lyle Moise on 03-18-2025 AST [Catalytic activity/Vol] 52 U/L High <38 [facility] Comment on above: Hemolysis present, R esults could be affected. MCV (mean corpuscular volume ) determinationOrdered By: Lyle Moise on 03-18-2025 MCV (RBC) [Entitic vol] 90.6 fL 80-94 [facility] Magnesiumon 03-18-2025 Magnesium [Mass/Vol] 2.1 mg/dL Normal 1.5-2.2 [facility] Comment on above: Performed By: #### L 300.8000, L501.2300, L501.5200 ####[facility] [address] [place], [address] Magnesium measurement (mass/ volume)Ordered By: Thierno Estrada on 03-18-2025 Magnesium (Unsp spec) [Mass/Vol] 2.1 mg/dL 1.5-2.2 [facility] Mean corpuscular hemoglobin (MCH) determinationOrdered By: Lyle Moise on 03-18-2025 MCH (RBC) [Entitic mass] 29.2 pg 27.0-32.0 [facility] Mean corpuscular hemoglobin concentration (MCHC) determinationOrdered By: Lyle Moise on 03-18-2025 MCHC (RBC) [Mass/Vol] 32.2 g/dL 32-36 [facility] Mean platelet volume determi nationOrdered By: Lyle Moise on 03-18-2025 Platelet mean volume (Bld) [Entitic vol] 10.7 fL 6.2-12.0 [facility] Microscopic analysis of urin e for red blood cells (RBC)Ordered By: Thierno Estrada on 03-18-2025 Microscopic analysis of urine for red blood cells (RBC) 0 SEEN /hpf 0-5 [facility] Monocyte percentageOrdered B y: Lyle Moise on 03-18-2025 Monocytes/100 WBC (Bld) 6.1 % 0-10 [facility] Mucus LM Ql (Urine sed)Order ed By: Thierno Estrada on 03-18-2025 Mucus Ql (Urine sed) 0 SEEN /hpf [facility] Natriuretic peptide.B prohor nicola N-Terminal [Mass/volume] in Serum or PlasmaOrdered By: Lyle Moise on 03-18-2025 Natriuretic peptide.B prohormone N-Terminal [Mass/Vol] 1362 pg/mL High <900 [facility] Comment on above: Heart Failure Unlike ly: < 300 pg/mLHeart Failure Likely< 50 Years: > 450 pg/mL50-75 Years: > 900 pg/mL>75 Years: > 1800 pg/mL Neutrophil percentageOrdered By: Lyle Moise on 03-18-2025 Neutrophils/100 WBC (Bld) 70.9 % High 47-70 [facility] Nitrite Test strip Ql (U)Ord ered By: Thierno Estrada on 03-18-2025 Nitrite Ql (U) Negative Negative [facility] No Panel InformationOrdered By: Thierno Estrada on 03-18-2025 Blood Gas Sample Site Not entered [facility] Blood Gas Specimen Type CANDICE [facility] Oxygen Delivery Device Not entered [facility] Nucleated red blood cell per centageOrdered By: Lyle Moise on 03-18-2025 Nucleated RBC/100 WBC (Bld) [Ratio] 0 % 0-5 [facility] Phosphoruson 03-18-2025 Phosphate [Mass/Vol] 2.7 mg/dL Normal 2.7-4.5 [facility] Comment on above: Performed By: #### L 300.8000, L501.2300, L501.5200 ####[facility] [address] [place], [address] Platelet countOrdered By: Arcadio Moise on 03-18-2025 Platelets (Bld) [#/Vol] 246 10*3/uL 150-450 [facility] Potassium measurement (mass/ volume)Ordered By: Lyle Moise on 03-18-2025 Potassium (Unsp spec) [Mass/Vol] 4.3 mmol/L 3.3-5.1 [facility] Comment on above: Hemolysis present, R esults could be affected. Protein Test strip Ql (U)Ord ered By: Thierno Estrada on 03-18-2025 Protein Ql (U) 15 mg/dl High Negative [facility] RBC Auto (Bld) [#/Vol]Ordere d By: Lyle Moise on 03-18-2025 RBC (Bld) [#/Vol] 4.59 10*6/uL Low 4.6-6.2 [facility] Serum creatinine measurement (mass/volume)Ordered By: Lyle Moise on 03-18-2025 Creatinine [Mass/Vol] 1.33 mg/dL High 0.70-1.20 [facility] Serum globulin measurementOr dered By: Lyle Moise on 03-18-2025 Globulin (S) [Mass/Vol] 3.4 g/dL 2.2-4.2 [facility] Serum glucose measurement (m ass/volume)Ordered By: Lyle Moise on 03-18-2025 Glucose [Mass/Vol] 111 mg/dL High 70-99 [facility] Serum or plasma alanine chu otransferase (ALT) measurementOrdered By: Lyle Moise on 03-18-2025 ALT [Catalytic activity/Vol] 30 U/L <47 [facility] Serum or plasma albumin silvia urement (mass/volume)Ordered By: Lyle Moise on 03-18-2025 Albumin [Mass/Vol] 4.2 g/dL 3.5-5.0 [facility] Serum or plasma albumin/glob ulin mass ratioOrdered By: Lyle Moise on 03-18-2025 Albumin/Globulin [Mass ratio] 1.3 {ratio} 0.9-2.4 [facility] Serum or plasma alkaline karon sphatase measurementOrdered By: Lyle Moise on 03-18-2025 ALP [Catalytic activity/Vol] 57 U/L 40-129 [facility] Serum or plasma calcium silvia urement (mass/volume)Ordered By: Lyle Moise on 03-18-2025 Calcium [Mass/Vol] 9.5 mg/dL 7.6-11.0 [facility] Serum or plasma urea nitroge n measurement (mass/volume)Ordered By: Lyle Moise on 03-18-2025 Urea nitrogen [Mass/Vol] 13 mg/dL 4-19 [facility] Sodium levelOrdered By: Jorje Moise on 03-18-2025 Sodium [Moles/Vol] 139 mmol/L 133-145 [facility] Squamous epithelial cells de tection in urine sediment by light microscopyOrdered By: Thierno Estrada on 03-18-2025 Epithelial cells.squamous LM Ql (Urine sed) 0-5 SEEN /hpf 0-5 [facility] Total proteinOrdered By: Edgar Moise on 03-18-2025 Protein [Mass/Vol] 7.6 g/dL 5.9-8.4 [facility] Troponin T.cardiac [Mass/vol ume] in Serum or Plasma by High sensitivity methodOrdered By: Lyle Moise on 03-18-2025 Troponin T.cardiac High sensitivity method [Mass/Vol] 23 ng/L High <22 [facility] Troponin T.cardiac High sensitivity method [Mass/Vol] 19 ng/L <22 [facility] Troponin T.cardiac High sensitivity method [Mass/Vol] 22 ng/L <22 [facility] Urinalysis, Completeon 05-11 -2025 BACTERIA 1+ /hpf Normal None Seen [facility] Comment on above: Order Comment: CLEAN CATCH Performed By: #### L 400.0001 ####[facility] [address] [place], [address] EPI,SQUAMOUS 0-5 SEEN Normal 0-5 [facility] Comment on above: Order Comment: CLEAN CATCH Performed By: #### L 400.0001 ####[facility] [address] [place], [address] Mucus Ql (Urine sed) 0 SEEN Normal [facility] Comment on above: Order Comment: CLEAN CATCH Performed By: #### L 400.0001 ####[facility] [address] [place], [address] RBC 0 SEEN Normal 0-5 [facility] Comment on above: Order Comment: CLEAN CATCH Performed By: #### L 400.0001 ####[facility] [address] [place], [address] WBC 0 SEEN Normal 0-5 [facility] Comment on above: Order Comment: CLEAN CATCH Performed By: #### L 400.0001 ####[facility] [address] [place], [address] Urine clarityOrdered By: Joey Estrada on 03-18-2025 Clarity (U) Clear Clear [facility] Urine color determinationOrd ered By: Thierno Estrada on 03-18-2025 Color (U) Yellow Yellow [facility] Urine glucose detectionOrder ed By: Thierno Estrada on 03-18-2025 Glucose Ql (U) Normal mg/dl Normal [facility] Urine leukocyte esterase det ection by dipstickOrdered By: Thierno Estrada on 03-18-2025 Leukocyte esterase Test strip Ql (U) Negative Negative [facility] Urine pHOrdered By: Thierno dahl on 03-18-2025 pH (U) 7.0 [pH] 5.0 - 8.0 [facility] Urine sediment bacteria coun t by microscopy (number/high power field)Ordered By: Thierno Estrada on 03-18-2025 Bacteria LM.HPF (Urine sed) [#/Area] 1 /[HPF] None Seen [facility] Urine specific gravity measu rementOrdered By: Thierno Estrada on 03-18-2025 Specific gravity (U) [Rel density] 1.005 1.002-1.030 [facility] Urine urobilinogen measureme ntOrdered By: Thierno Estrada on 03-18-2025 Urobilinogen Ql (U) Normal mg/dl Normal [facility] Venous Blood Gason Blood Gas Type CANDICE Normal [facility] Comment on above: Performed By: #### L 9000.0810 ####[facility] [address] [place], [address] CO2 [Moles/Vol] 33 mmol/L Normal 23-33 [facility] Comment on above: Performed By: #### L 9000.0810 ####[facility] [address] [place], [address] HCO3 (Bld) [Moles/Vol] 32 mmol/L High 22-26 [facility] Comment on above: Performed By: #### L 9000.0810 ####[facility] [address] [place], [address] O2 Delivery Dev Not entered Normal [facility] Comment on above: Performed By: #### L 9000.0810 ####[facility] [address] [place], [address] SITE Not entered Normal [facility] Comment on above: Performed By: #### L 9000.0810 ####[facility] [address] [place], [address] VBG BE 7 mmol/L High -1.0-3.5 [facility] Comment on above: Performed By: #### L 9000.0810 ####[facility] [address] [place], [address] VBG pCO2 47.1 mmHg Normal 41-51 [facility] Comment on above: Performed By: #### L 9000.0810 ####[facility] [address] [place], [place], [address] VBG pH 7.44 High 7.32-7.42 [facility] Comment on above: Performed By: #### L 9000.0810 ####[facility] [address] [place], [place], [address] VBG PO2 33 mmHg Normal 25-40 [facility] Comment on above: Performed By: #### L 9000.0810 ####[facility] [address] [place], [place], [address] VBG SO2 64 Normal 50-70 [facility] Comment on above: Performed By: #### L 9000.0810 ####[facility] [address] [place], [place], [address] Venous blood base excess vicki surementOrdered By: Thierno Estrada on 03-18-2025 Base excess Calc (BldV) [Moles/Vol] 7 mmol/L High -1.0-3.5 [facility] Venous blood bicarbonate vicki surementOrdered By: Thierno Estrada on 03-18-2025 HCO3 (Bld) [Moles/Vol] 32 mmol/L High 22-26 [facility] Venous blood oxygen saturati on measurementOrdered By: Thierno Estrada on 03-18-2025 Oxygen saturation in Blood 64 % 50-70 [facility] Venous blood pH measurementO rdered By: Thierno Estrada on 03-18-2025 pH (BldV) 7.44 [pH] High 7.32-7.42 [facility] Venous blood partial pressur e of carbon dioxide measurementOrdered By: Thierno Estrada on 03-18-2025 CO2 (BldV) [Partial pressure] 47.1 mm[Hg] 41-51 [facility] Venous blood partial pressur e of oxygen measurementOrdered By: Thierno Estrada on 03-18-2025 Oxygen (BldV) [Partial pressure] 33 mm[Hg] 25-40 [facility] White blood cell (WBC) count Ordered By: Lyle Moise on 03-18-2025 WBC (Bld) [#/Vol] 6.4 10*3/uL 4.4-11.0 [facility] White blood cell countOrdere d By: Thierno Estrada on 03-18-2025 White blood cell count 0 SEEN /hpf 0-5 [facility] Discharge Instructionon 02-07 Discharge Instruction [facility] Medical Records Department [address] [place] [address] Instructions for Home/Discharge Instructions 03/05/25 1445 MR#: [id number] Acct: [id number] Name: JOSÉ MIGUEL YOUNG . Rep #: [id number] : 1965 59 From: Jostin Arriaza DO [...] MD; Dr. Pierce Florian DO Signed Normal [facility] Anion gap in Serum or Plasma Ordered By: Pierce Florian on 03-04-2025 Anion gap [Moles/Vol] 10 mmol/L 03-22 [facility] BUN/creatinine ratioOrdered By: Pierce Florian on 03-04-2025 Urea nitrogen/Creatinine [Mass ratio] 11.8 mg/mg - [facility] Basic Metabolic Profile (BMP )on 03-04-2025 BUN/CRE 11.8 RATIO Normal 08-27 [facility] Comment on above: Performed By: #### L 500.2500 ####[facility] [address] [place], [address] Calcium [Mass/Vol] 9.5 mg/dL Normal 7.6-11.0 [facility] Comment on above: Performed By: #### L 500.2500 ####[facility] [address] [place], [address] Chloride [Moles/Vol] 94 mmol/L Low 98-108 [facility] Comment on above: Performed By: #### L 500.2500 ####[facility] [address] [place], [address] CO2 [Moles/Vol] 33.8 mmol/L High 21.0-32.0 [facility] Comment on above: Performed By: #### L 500.2500 ####[facility] [address] [place], [address] Creatinine [Mass/Vol] 1.00 mg/dL Normal 0.70-1.20 [facility] Comment on above: Performed By: #### L 500.2500 ####[facility] [address] [place], [address] ECRCL 117.38 ml/min Normal 50-250 [facility] Comment on above: Performed By: #### L 500.2500 ####[facility] [address] [place], [address] GAP 10 Normal 5-15 [facility] Comment on above: Performed By: #### L 500.2500 ####[facility] [address] [place], [address] GFR/1.73 sq M.predicted among non-blacks MDRD (S/P/Bld) [Vol rate/Area] 87 mL/min/{1.73_m2} Normal >60 [facility] Comment on above: Result Comment: mL/m in/1.73m2 CKD-EPI Creatinine Equation (2020) Performed By: #### L 500.2500 ####[facility] [address] [place], [address] Glucose [Mass/Vol] 160 mg/dL High 70-99 [facility] Comment on above: Performed By: #### L 500.2500 ####[facility] [address] [place], [address] Potassium [Moles/Vol] 4.0 mmol/L Normal 3.3-5.1 [facility] Comment on above: Performed By: #### L 500.2500 ####[facility] [address] [place], [place], [address] Sodium [Moles/Vol] 138 mmol/L Normal 133-145 [facility] Comment on above: Performed By: #### L 500.2500 ####[facility] [address] [place], [place], [address] Urea nitrogen [Mass/Vol] 12 mg/dL Normal 4-19 [facility] Comment on above: Performed By: #### L 500.2500 ####[facility] [address] [place], [place], [address] Carbon dioxide, total [Moles /volume] in Central venous bloodOrdered By: Pierce Florian on 03-04-2025 CO2 [Moles/Vol] 33.8 mmol/L High 21.0-32.0 [facility] Chloride assayOrdered By: Yulissa Florian on 03-04-2025 Chloride [Moles/Vol] 94 mmol/L Low 98-108 [facility] Estimation of creatinine jose luis aranceOrdered By: Pierce Florian on 03-04-2025 Estimated Creatinine Clearance Calc 117.38 ml/min 50-250 [facility] GFR/1.73 sq M.predicted gregorio g non-blacks MDRD (S/P/Bld) [Vol rate/Area]Ordered By: Pierce Florian on 03-04-2025 Estimated GFR (MDRD) Non-Af Amer 87 >60 [facility] Comment on above: mL/min/1.73m2 CKD-EP I Creatinine Equation (2020) Glomerular filtration rate ( GFR) estimation/1.73 sq m using serum, plasma, or whole bOrdered By: Pierce Florian on 03-04-2025 GFR/1.73 sq M.predicted among non-blacks MDRD (S/P/Bld) [Vol rate/Area] 87 mL/min/{1.73_m2} >60 [facility] Comment on above: mL/min/1.73m2 CKD-EP I Creatinine Equation (2020) Potassium (Unsp spec) [Mass/ Vol]Ordered By: Pierce Florian on 03-04-2025 Potassium [Moles/Vol] 4.0 mmol/L 3.3-5.1 [facility] Potassium measurement (mass/ volume)Ordered By: Pierce Florian on 03-04-2025 Potassium (Unsp spec) [Mass/Vol] 4.0 mmol/L 3.3-5.1 [facility] Serum creatinine measurement (mass/volume)Ordered By: Pierce Florian on 03-04-2025 Creatinine [Mass/Vol] 1.00 mg/dL 0.70-1.20 [facility] Serum glucose measurement (m ass/volume)Ordered By: Pierce Florian on 03-04-2025 Glucose [Mass/Vol] 160 mg/dL High 70-99 [facility] Serum or plasma calcium silvia urement (mass/volume)Ordered By: Pierce Florian on 03-04-2025 Calcium [Mass/Vol] 9.5 mg/dL 7.6-11.0 [facility] Serum or plasma urea nitroge n measurement (mass/volume)Ordered By: Pierce Florian on 03-04-2025 Urea nitrogen [Mass/Vol] 12 mg/dL 4-19 [facility] Sodium levelOrdered By: Pierce Florian on 03-04-2025 Sodium [Moles/Vol] 138 mmol/L 133-145 [facility] Absolute lymphocyte countOrd ered By: Thierno Estrada on 03-03-2025 Lymphocytes Auto (Unsp spec) [#/Vol] 1.01 10*3/uL 0.83-4.51 [facility] Absolute neutrophil countOrd ered By: Thierno Estrada on 03-03-2025 Neutrophils (Bld) [#/Vol] 2.8 10*3/uL 2.0-7.7 [facility] Automated lymphocyte count a s percentage of total leukocytesOrdered By: Thierno Estrada on 03-03-2025 Lymphocytes/100 WBC Auto (Unsp spec) 23.3 % 19-41 [facility] Base excess Calc (BldV) [Mol es/Vol]Ordered By: Thierno Estrada on 03-03-2025 Venous Blood Base Excess 5 mmol/L High -1.0-3.5 [facility] Basophil percentageOrdered B y: Thierno Estrada on 03-03-2025 Basophils/100 WBC (Bld) 0.7 % 0-1 [facility] Bilirubin, totalOrdered By: Thierno Estrada on 03-03-2025 Bilirubin [Mass/Vol] 1.47 mg/dL High 0.00-1.30 [facility] CBC W/Diff, Automatedon 02-07 Absolute Lymph 1.01 X10 3/uL Normal 0.83-4.51 [facility] Comment on above: Performed By: #### L 100.0100, L500.4100, L500.4050 ####[facility] [address] [place], [address] Absolute Neut 2.8 X10 3/uL Normal 2.0-7.7 [facility] Comment on above: Performed By: #### L 100.0100, L500.4100, L500.4050 ####[facility] [address] [place], [address] Basophils/100 WBC (Bld) 0.7 % Normal 0-1 [facility] Comment on above: Performed By: #### L 100.0100, L500.4100, L500.4050 ####[facility] [address] [place], [address] Eosinophils/100 WBC (Bld) 2.1 % Normal 0-5 [facility] Comment on above: Performed By: #### L 100.0100, L500.4100, L500.4050 ####[facility] [address] [place], [address] Erythrocyte distribution width (RBC) [Ratio] 14.3 % Normal 11.6-14.6 [facility] Comment on above: Performed By: #### L 100.0100, L500.4100, L500.4050 ####[facility] [address] [place], [address] Hematocrit (Bld) [Volume fraction] 35.1 % Low 40-54 [facility] Comment on above: Performed By: #### L 100.0100, L500.4100, L500.4050 ####[facility] [address] [place], [address] Hemoglobin (Bld) [Mass/Vol] 11.6 g/dL Low 13.0-16.5 [facility] Comment on above: Performed By: #### L 100.0100, L500.4100, L500.4050 ####[facility] [address] [place], [address] IG% 0.200 Normal 0.0-0.9 [facility] Comment on above: Result Comment: IG% - Immature Granulocytes (promyelocytes, myelocytes and metamyelocytes) > 1% indicates that a LEFT SHIFT is Present. Performed By: #### L 100.0100, L500.4100, L500.4050 ####[facility] [address] [place], [address] Lymphocytes/100 WBC (Bld) 23.3 % Normal 19-41 [facility] Comment on above: Performed By: #### L 100.0100, L500.4100, L500.4050 ####[facility] [address] [place], [address] MCH (RBC) [Entitic mass] 29.5 pg Normal 27.0-32.0 [facility] Comment on above: Performed By: #### L 100.0100, L500.4100, L500.4050 ####[facility] [address] [place], [address] MCHC (RBC) [Mass/Vol] 33.0 g/dL Normal 32-36 [facility] Comment on above: Performed By: #### L 100.0100, L500.4100, L500.4050 ####[facility] [address] [place], [address] MCV (RBC) [Entitic vol] 89.3 fL Normal 80-94 [facility] Comment on above: Performed By: #### L 100.0100, L500.4100, L500.4050 ####[facility] [address] [place], [address] Monocytes/100 WBC (Bld) 8.5 % Normal 0-10 [facility] Comment on above: Performed By: #### L 100.0100, L500.4100, L500.4050 ####[facility] [address] [place], [address] Neutrophils/100 WBC (Bld) 65.2 % Normal 47-70 [facility] Comment on above: Performed By: #### L 100.0100, L500.4100, L500.4050 ####[facility] [address] [place], [address] Nucleated RBC (Bld) [#/Vol] 0 10*3/uL Normal 0-5 [facility] Comment on above: Performed By: #### L 100.0100, L500.4100, L500.4050 ####[facility] [address] [place], [address] Platelet mean volume (Bld) [Entitic vol] 10.3 fL Normal 6.2-12.0 [facility] Comment on above: Performed By: #### L 100.0100, L500.4100, L500.4050 ####[facility] [address] [place], [address] Platelets (Bld) [#/Vol] 215 10*3/uL Normal 150-450 [facility] Comment on above: Performed By: #### L 100.0100, L500.4100, L500.4050 ####[facility] [address] [place], [address] RBC (Bld) [#/Vol] 3.93 10*6/uL Low 4.6-6.2 [facility] Comment on above: Performed By: #### L 100.0100, L500.4100, L500.4050 ####[facility] [address] [place], [address] RDW SD 47.1 fl High 35.1-43.9 [facility] Comment on above: Performed By: #### L 100.0100, L500.4100, L500.4050 ####[facility] [address] [place], [address] WBC (Bld) [#/Vol] 4.3 10*3/uL Low 4.4-11.0 [facility] Comment on above: Performed By: #### L 100.0100, L500.4100, L500.4050 ####[facility] [address] [place], [address] CO2 (BldV) [Moles/Vol]Ordere d By: Thierno Estrada on 03-03-2025 CO2 [Moles/Vol] 31 mmol/L 23-33 [facility] CO2 (BldV) [Partial pressure ]Ordered By: Thierno Estrada on 03-03-2025 Bed Mix Venous Bld PCO2 at Pat Temp 42.5 mmHg 41-51 [facility] Calculated very low density lipoprotein (VLDL) cholesterol measurementOrdered By: Thierno Estrada on 03-03-2025 Calculated very low density lipoprotein (VLDL) cholesterol measurement 23 mg/dL - [facility] VLDL Cholesterol 23 mg/dL -40 [facility] Comprehensive Metabolic Prof ilon 03-03-2025 Albumin [Mass/Vol] 3.9 g/dL Normal 3.5-5.0 [facility] Comment on above: Performed By: #### L 100.0100, L500.4100, L500.4050 ####[facility] [address] [place], [address] Albumin/Globulin [Mass ratio] 1.2 {ratio} Normal 0.9-2.4 [facility] Comment on above: Performed By: #### L 100.0100, L500.4100, L500.4050 ####[facility] [address], [address] ALK PHOS 49 U/L Normal 40-129 [facility] Comment on above: Result Comment: Hemo lysis Present, Results may be affected. Performed By: #### L 100.0100, L500.4100, L500.4050 ####[facility] [address], [address] ALT [Catalytic activity/Vol] 36 U/L Normal <=46 [facility] Comment on above: Result Comment: Hemo lysis present, Results??could be affected. ?? Performed By: #### L 100.0100, L500.4100, L500.4050 ####[facility] [address] [place], [address] AST [Catalytic activity/Vol] 89 U/L High <=37 [facility] Comment on above: Result Comment: Hemo lysis present, Results??could be affected. ?? Performed By: #### L 100.0100, L500.4100, L500.4050 ####[facility] [address] [place], [address] Bilirubin [Mass/Vol] 1.47 mg/dL High 0.00-1.30 [facility] Comment on above: Performed By: #### L 100.0100, L500.4100, L500.4050 ####[facility] [address] [place], [address] BUN/CRE 12.7 RATIO Normal 10-20 [facility] Comment on above: Performed By: #### L 100.0100, L500.4100, L500.4050 ####[facility] [address] [place], [address] Calcium [Mass/Vol] 9.2 mg/dL Normal 7.6-11.0 [facility] Comment on above: Performed By: #### L 100.0100, L500.4100, L500.4050 ####[facility] [address] [place], [address] Chloride [Moles/Vol] 99 mmol/L Normal 98-108 [facility] Comment on above: Performed By: #### L 100.0100, L500.4100, L500.4050 ####[facility] [address] [place], [address] CO2 [Moles/Vol] 26.7 mmol/L Normal 21.0-32.0 [facility] Comment on above: Performed By: #### L 100.0100, L500.4100, L500.4050 ####[facility] [address] [place], [address] Creatinine [Mass/Vol] 1.19 mg/dL Normal 0.70-1.20 [facility] Comment on above: Performed By: #### L 100.0100, L500.4100, L500.4050 ####[facility] [address] [place], [address] ECRCL 99.78 ml/min Normal 50-250 [facility] Comment on above: Performed By: #### L 100.0100, L500.4100, L500.4050 ####[facility] [address] [place], [address] GAP 12 Normal 5-15 [facility] Comment on above: Performed By: #### L 100.0100, L500.4100, L500.4050 ####[facility] [address] [place], [address] GFR/1.73 sq M.predicted among non-blacks MDRD (S/P/Bld) [Vol rate/Area] 70 mL/min/{1.73_m2} Normal >60 [facility] Comment on above: Result Comment: mL/m in/1.73m2 CKD-EPI Creatinine Equation (2020) Performed By: #### L 100.0100, L500.4100, L500.4050 ####[facility] [address] [place], [address] Globulin (S) [Mass/Vol] 3.1 g/dL Normal 2.2-4.2 [facility] Comment on above: Performed By: #### L 100.0100, L500.4100, L500.4050 ####[facility] [address] [place], [address] Glucose [Mass/Vol] 117 mg/dL High 70-99 [facility] Comment on above: Performed By: #### L 100.0100, L500.4100, L500.4050 ####[facility] [address] [place], [address] Potassium [Moles/Vol] 4.2 mmol/L Normal 3.3-5.1 [facility] Comment on above: Result Comment: Hemo lysis present, Results??could be affected. ?? Performed By: #### L 100.0100, L500.4100, L500.4050 ####[facility] [address] [place], [address] Sodium [Moles/Vol] 138 mmol/L Normal 133-145 [facility] Comment on above: Performed By: #### L 100.0100, L500.4100, L500.4050 ####[facility] [address] [place], [address] T PROT 7.0 g/dL Normal 5.9-8.4 [facility] Comment on above: Performed By: #### L 100.0100, L500.4100, L500.4050 ####[facility] [address] [place], [address] Urea nitrogen [Mass/Vol] 15 mg/dL Normal 4-19 [facility] Comment on above: Performed By: #### L 100.0100, L500.4100, L500.4050 ####[facility] [address] [place], [address] Echocardiogram study reportO rdered By: Sagrario Casanova on 03-03-2025 Study report [facility] [address] [place] [address] Echo Complete W/ Contrast 03/03/25 0806 MR#: [id number] Acct: [id number] Name: JOSÉ MIGUEL YOUNG Sr. Rep #: [id number] : 1965 59 From: Sagrario Casanova MD Attending Dr: Dr. Pierce Florian, Status: ADM IN Ordering Dr: Thierno Campos DO Date: 03/02/25 Location: [facility] Sex: M C Admitted: 03/02/25 Reason [...] ~ Date Dictated: 03/03/25805 Date Transcribed: 03/03/251124 Transportation Modeler: Signed [facility] Work Phone: Eosinophil percentageOrdered By: Thierno Estrada on 03-03-2025 Eosinophils/100 WBC (Bld) 2.1 % 0-5 [facility] Erythrocyte distribution wid th (RBC) [Ratio]Ordered By: Thierno Estrada on 03-03-2025 Erythrocyte distribution width (RBC) [Entitic vol] 47.1 fL High 35.1-43.9 [facility] Erythrocyte distribution wid th ratioOrdered By: Thierno Estrada on 03-03-2025 Erythrocyte distribution width (RBC) [Ratio] 14.3 % 11.6-14.6 [facility] Erythrocyte distribution wid th standard deviationOrdered By: Thierno Estrada on 03-03-2025 Erythrocyte distribution width (RBC) [Ratio] 47.1 fl High 35.1-43.9 [facility] Folate [Moles/Vol]Ordered By : Thierno Estrada on 03-03-2025 Serum Folate 5.48 ng/mL 4.60-34.80 [facility] Folate [Moles/volume] in Ser um or PlasmaOrdered By: Thierno Estrada on 03-03-2025 Folate [Moles/Vol] 5.48 ng/mL 4.60-34.80 [facility] Folates,Serum (Folic Acid)on 03-03-2025 FOLATES,SERUM 5.48 ng/mL Normal 4.60-34.80 [facility] Comment on above: Order Comment: PATILucero NT IS BACK Performed By: #### L 506.0200, L501.9985 ####[facility] [address] [place], [place], [id number] Hematocrit Auto (Bld) [Volum e fraction]Ordered By: Thierno Estrada on 03-03-2025 Hematocrit (Bld) [Volume fraction] 35.1 % Low 40-54 [facility] Hemoglobin measurementOrdere d By: Thierno Estrada on 03-03-2025 Hemoglobin (Bld) [Mass/Vol] 11.6 g/dL Low 13.0-16.5 [facility] Immature granulocytes/100 WB C Auto (Bld)Ordered By: Thierno Estrada on 03-03-2025 Immature granulocytes/100 WBC (Bld) 0.200 % 0.0-0.9 [facility] Comment on above: IG% - Immature Granu locytes (promyelocytes, myelocytes and metamyelocytes) > 1% indicates that a LEFT SHIFT is Present. L503.7505on 03-03-2025 Natriuretic peptide B (Bld) [Mass/Vol] 1568 pg/mL High <=900 [facility] Comment on above: Result Comment: Hear t Failure Unlikely: < 300 pg/mL Heart Failure Likely < 50 Years: > 450 pg/mL 50-75 Years: > 900 pg/mL >75 Years: > 1800 pg/mL Performed By: #### L 503.7505 ####[facility] [address] [place], [place], [id number] LDL calc ser/plasOrdered By: Thierno Estrada on 03-03-2025 Cholesterol in LDL [Mass/Vol] 88 mg/dL [facility] Comment on above: Xznurzkrju=664-669 m g/dL & Higher Peza=387 mg/dL or greater LDL Cholesterol, Calculated 88 mg/dL [facility] Comment on above: Xidiqxsbdb=280-522 m g/dL & Higher Hwmj=036 mg/dL or greater Laboratory - Chemistry and C hemistry - challengeOrdered By: Thierno Estrada on 03-03-2025 AST [Catalytic activity/Vol] 89 U/L High <38 [facility] Comment on above: Hemolysis present, R esults could be affected. Lipid Profileon 03-03-2025 CHOL:HDL 4.83 Normal [facility] Comment on above: Performed By: #### L 100.0100, L500.4100, L500.4050 ####[facility] [address] [place], [address] Cholesterol [Mass/Vol] 140 mg/dL Normal <=200 [facility] Comment on above: Result Comment: Chol esterol level, Desirable <200 mg/dL Borderline high cholesterol 200-239 mg/dL High cholesterol >=240 mg/dL Recommendations of the NCEP Adult Treatment Panel for the following risk-cutoff thresholds for the [place] population. Performed By: #### L 100.0100, L500.4100, L500.4050 ####[facility] [address] [place], [address] Cholesterol in HDL [Mass/Vol] 29 mg/dL Low [facility] Comment on above: Result Comment: Odalys onal Cholesterol Education Program (NCEP) guidelines: <40 mg/dL: Low HDL-cholesterol (major risk factor for CHD) >= 60 mg/dL: High HDL-cholesterol (negative risk factor for CHD) HDL-cholesterol is affected by a number of factors, e.g. smoking, exercise, hormones, sex and age. Performed By: #### L 100.0100, L500.4100, L500.4050 ####[facility] [address] [place], [address] Cholesterol in LDL [Mass/Vol] 88 mg/dL Normal [facility] Comment on above: Result Comment: Bord imleno=962-073 mg/dL Higher Pxrf=396 mg/dL or greater Performed By: #### L 100.0100, L500.4100, L500.4050 ####[facility] [address] [place], [address] Cholesterol in VLDL [Mass/Vol] 23 mg/dL Normal 5-40 [facility] Comment on above: Performed By: #### L 100.0100, L500.4100, L500.4050 ####[facility] [address] [place], [address] Triglyceride [Mass/Vol] 115 mg/dL Normal [facility] Comment on above: Result Comment: The drugs N-Acetylcysteine and Metamizole may falsely depress this assay. Normal range: <150 mg/dL Borderline High: 150-199 mg/dL High: 200-499 mg/dL Very High: >500 mg/dL Performed By: #### L 100.0100, L500.4100, L500.4050 ####[facility] [address] [facility] [place], [address] Lymphocytes Auto (Unsp spec) [#/Vol]Ordered By: Thierno Estrada on 03-03-2025 Lymphocytes (Bld) [#/Vol] 1.01 10*3/uL 0.83-4.51 [facility] Lymphocytes/100 WBC Auto (Un sp spec)Ordered By: Thierno Estrada on 03-03-2025 Lymphocytes/100 WBC (Bld) 23.3 % 19-41 [facility] MCV (mean corpuscular volume ) determinationOrdered By: Thierno Estrada on 03-03-2025 MCV (RBC) [Entitic vol] 89.3 fL 80-94 [facility] Magnesiumon 03-03-2025 Magnesium [Mass/Vol] 1.8 mg/dL Normal 1.5-2.2 [facility] Comment on above: Performed By: #### L 501.5200, L501.9520, L503.0106 ####[facility] [address] [place], [address] Mean corpuscular hemoglobin (MCH) determinationOrdered By: Thierno Estrada on 03-03-2025 MCH (RBC) [Entitic mass] 29.5 pg 27.0-32.0 [facility] Mean corpuscular hemoglobin concentration (MCHC) determinationOrdered By: Thierno Estrada on 03-03-2025 MCHC (RBC) [Mass/Vol] 33.0 g/dL 32-36 [facility] Mean platelet volume determi nationOrdered By: Thierno Estrada on 03-03-2025 Platelet mean volume (Bld) [Entitic vol] 10.3 fL 6.2-12.0 [facility] Monocyte percentageOrdered B y: Thierno Estrada on 03-03-2025 Monocytes/100 WBC (Bld) 8.5 % 0-10 [facility] Natriuretic peptide.B prohor nicola N-Terminal [Mass/Vol]Ordered By: Thierno Estrada on 03-03-2025 Natriuretic peptide B (Bld) [Mass/Vol] 1568 pg/mL High <900 [facility] Comment on above: Heart Failure Unlike ly: < 300 pg/mLHeart Failure Likely< 50 Years: > 450 pg/mL50-75 Years: > 900 pg/mL>75 Years: > 1800 pg/mL Natriuretic peptide.B prohor nicola N-Terminal [Mass/volume] in Serum or PlasmaOrdered By: Thierno Estrada on 03-03-2025 Natriuretic peptide.B prohormone N-Terminal [Mass/Vol] 1568 pg/mL High <900 [facility] Comment on above: Heart Failure Unlike ly: < 300 pg/mLHeart Failure Likely< 50 Years: > 450 pg/mL50-75 Years: > 900 pg/mL>75 Years: > 1800 pg/mL Neutrophil percentageOrdered By: Thierno Estrada on 03-03-2025 Neutrophils/100 WBC (Bld) 65.2 % 47-70 [facility] No Panel InformationOrdered By: Thierno Estrada on 03-03-2025 Blood Gas Sample Site Not entered [facility] Blood Gas Specimen Type CANDICE [facility] Oxygen Delivery Device Not entered [facility] Nucleated red blood cell per centageOrdered By: Thierno Estrada on 03-03-2025 Nucleated RBC/100 WBC (Bld) [Ratio] 0 % 0-5 [facility] Oxygen (BldV) [Partial press ure]Ordered By: Thierno Estrada on 03-03-2025 Venous Blood Partial Pressure O2 95 mmHg High 25-40 [facility] Phosphoruson 03-03-2025 Phosphate [Mass/Vol] 4.0 mg/dL Normal 2.7-4.5 [facility] Comment on above: Performed By: #### L 501.2300 ####[facility] [address] [place], [place], [id number] Platelet countOrdered By: Arcadio Estrada on 03-03-2025 Platelets (Bld) [#/Vol] 215 10*3/uL 150-450 [facility] RBC Auto (Bld) [#/Vol]Ordere d By: Thierno Estrada on 03-03-2025 RBC (Bld) [#/Vol] 3.93 10*6/uL Low 4.6-6.2 [facility] RESPIRATORY PANEL MOLECULARo n 03-03-2025 RP PANEL ADENOVIRUS Not Detected INFLUENZA A Not Detected INFLUENZA A (SUBTYPE H1) Not Detected INFLUENZA A (SUBTYPE H3) Not Detected INFLUENZA B Not Detected HUMAN METAPHNEUMO Not Detected PARAINFLUENZA 1 Not Detected PARAINFLUENZA 2 Not Detected PARAINFLUENZA 3 Not Detected PARAINFLUENZA 4 Not Detected RHINOVIRUS Not Detected RSV A Not Detected RSV B Not Detected Normal [facility] Comment on above: Performed By: #### M 100.638 ####[facility] [address] [facility]. [place], [place], [address] Screening total cholesterol/ high density lipoprotein (HDL) cholesterol ratioOrdered By: Thierno Estrada on 03-03-2025 Cholesterol.total/Chol esterol in HDL [Mass ratio] 4.83 {ratio} [facility] Serum globulin measurementOr dered By: Thierno Estrada on 03-03-2025 Globulin (S) [Mass/Vol] 3.1 g/dL 2.2-4.2 [facility] Serum or plasma alanine chu otransferase (ALT) measurementOrdered By: Thierno Estrada on 03-03-2025 ALT [Catalytic activity/Vol] 36 U/L <47 [facility] Comment on above: Hemolysis present, R esults could be affected. Serum or plasma albumin silvia urement (mass/volume)Ordered By: Thierno Estrada on 03-03-2025 Albumin [Mass/Vol] 3.9 g/dL 3.5-5.0 [facility] Serum or plasma albumin/glob ulin mass ratioOrdered By: Thierno Estrada on 03-03-2025 Albumin/Globulin [Mass ratio] 1.2 {ratio} 0.9-2.4 [facility] Serum or plasma alkaline karon sphatase measurementOrdered By: Thierno Estrada on 03-03-2025 ALP [Catalytic activity/Vol] 49 U/L 40-129 [facility] Comment on above: Hemolysis Present, R esults may be affected. Serum or plasma cholesterol in HDL measurement (mass/volume)Ordered By: Thierno Estrada on 03-03-2025 Cholesterol in HDL [Mass/Vol] 29 mg/dL Low >40 [facility] Comment on above: National Cholesterol Education Program (NCEP) guidelines:<40 mg/dL: Low HDL-cholesterol (major risk factor for CHD)>= 60 mg/dL: High HDL-cholesterol (negative risk factor for CHD)HDL-cholesterol is affected by a number of factors, e.g. smoking, exercise, hormones, sex and age. Serum or plasma cholesterol measurement (mass/volume)Ordered By: Thierno Estrada on 03-03-2025 Cholesterol [Mass/Vol] 140 mg/dL <201 [facility] Comment on above: Cholesterol level, D esirable <200 mg/dLBorderline high cholesterol 200-239 mg/dLHigh cholesterol >=240 mg/dLRecommendations of the NCEP Adult Treatment Panel for the following risk-cutoff thresholds for the [place] population. Serum phosphorus measurement Ordered By: Thierno Estrada on 03-03-2025 Phosphorus Level 4.0 mg/dL 2.7-4.5 [facility] Thyroid Stim Hormone (TSH)on 03-03-2025 TSH 3.740 uIU/mL Normal 0.300-4.200 [facility] Comment on above: Performed By: #### L 501.5200, L501.9520, L503.0106 ####[facility] [address] [place], [address] Total proteinOrdered By: Joey Estrada on 03-03-2025 Protein [Mass/Vol] 7.0 g/dL 5.9-8.4 [facility] Triglycerides measurementOrd ered By: Thierno Estrada on 03-03-2025 Triglyceride [Mass/Vol] 115 mg/dL <199 [facility] Comment on above: The drugs N-Acetylcy steine and Metamizole may falsely depress this assay. Normal range: <150 mg/dLBorderline High: 150-199 mg/dLHigh: 200-499 mg/dLVery High: >500 mg/dL Venous Blood Gason 5 Blood Gas Type CANDICE Normal [facility] Comment on above: Performed By: #### L 9000.0810 ####[facility] [address] [place], [address] CO2 [Moles/Vol] 31 mmol/L Normal 23-33 [facility] Comment on above: Performed By: #### L 9000.0810 ####[facility] [address] [place], [address] HCO3 (Bld) [Moles/Vol] 29 mmol/L High 22-26 [facility] Comment on above: Performed By: #### L 9000.0810 ####[facility] [address] [place], [address] O2 Delivery Dev Not entered Normal [facility] Comment on above: Performed By: #### L 9000.0810 ####[facility] [address] [place], [address] SITE Not entered Normal [facility] Comment on above: Performed By: #### L 9000.0810 ####[facility] [address] [place], [address] VBG BE 5 mmol/L High -1.0-3.5 [facility] Comment on above: Performed By: #### L 9000.0810 ####[facility] [address] [place], [address] VBG pCO2 42.5 mmHg Normal 41-51 [facility] Comment on above: Performed By: #### L 9000.0810 ####[facility] [address] [place], [address] VBG pH 7.45 High 7.32-7.42 [facility] Comment on above: Performed By: #### L 9000.0810 ####[facility] [address] [place], [address] VBG PO2 95 mmHg High 25-40 [facility] Comment on above: Performed By: #### L 9000.0810 ####[facility] [address] [place], [address] VBG SO2 98 High 50-70 [facility] Comment on above: Performed By: #### L 9000.0810 ####[facility] [address] [place], [address] Venous Duplex US - Fabio Extre mon 03-03-2025 Venous Duplex US - Fabio Extrem [facility] [address] [place] [address] Venous Duplex US - Fabio Extrem 03/05/25 1049 MR#: [id number] Acct: [id number] Name: JOSÉ MIGUEL YOUNG Sr. Rep #: [id number] : 1965 59 From: Alonso Rizzo MD Attending Dr: Dr. Jostin Arriaza, Status : DIS IN Ordering Dr: Thierno Campos DO Date: 03/03/25 Location: [facility] Sex: M C Admitted: 03/02/25 Reason [...] report was called and/or faxed to PCU sample supervisor ADAMA. VL/Venous Duplex US - Fabio Extrem [...] Date Dictated: 03/05/25 1049 Date Transcribed: 03/05/252304 Transportation Modeler: Signed Normal [facility] Venous blood base excess vicki surementOrdered By: Thierno Estrada on 03-03-2025 Base excess Calc (BldV) [Moles/Vol] 5 mmol/L High -1.0-3.5 [facility] Venous blood bicarbonate vicki surementOrdered By: Thierno Estrada on 03-03-2025 HCO3 (Bld) [Moles/Vol] 29 mmol/L High 22-26 [facility] Venous blood oxygen saturati on measurementOrdered By: Thierno Estrada on 03-03-2025 Oxygen saturation in Blood 98 % High 50-70 [facility] Venous blood pH measurementO rdered By: Thierno Estrada on 03-03-2025 pH (BldV) 7.45 [pH] High 7.32-7.42 [facility] Venous blood partial pressur e of carbon dioxide measurementOrdered By: Thierno Estrada on 03-03-2025 CO2 (BldV) [Partial pressure] 42.5 mm[Hg] 41-51 [facility] Venous blood partial pressur e of oxygen measurementOrdered By: Thierno Estrada on 03-03-2025 Oxygen (BldV) [Partial pressure] 95 mm[Hg] High 25-40 [facility] Vitamin B12on 03-03-2025 Cobalamin (Vitamin B12) [Mass/Vol] 260 pg/mL Normal 180-914 [facility] Comment on above: Performed By: #### L 501.5200, L501.9520, L503.0106 ####[facility] [address] [place], [place], [id number] White blood cell (WBC) count Ordered By: Thierno Estrada on 03-03-2025 WBC (Bld) [#/Vol] 4.3 10*3/uL Low 4.4-11.0 [facility] pH (BldV)Ordered By: Thierno akers on 03-03-2025 Venous Blood pH 7.45 High 7.32-7.42 [facility] Arterial patency Wrist arter y --pre arterial punctureOrdered By: Thierno Estrada on 03-02-2025 Sherrell Test Positive [facility] Assessment of wrist artery p atency prior to arterial punctureOrdered By: Thierno Estrada on 03-02-2025 Arterial patency Wrist artery --pre arterial puncture Positive [facility] Base excess Calc (BldV) [Mol es/Vol]Ordered By: Thierno Estrada on 03-02-2025 Blood Gas Base Excess 5 mmol/L High -2-2 [facility] Basic Metabolic Profile (BMP )on 03-02-2025 BUN/CRE 17.6 RATIO Normal 10-20 [facility] Comment on above: Performed By: #### L 100.0100, L500.2500 ####[facility] [address] [place], [address] Calcium [Mass/Vol] 9.2 mg/dL Normal 7.6-11.0 [facility] Comment on above: Performed By: #### L 100.0100, L500.2500 ####[facility] [address] [place], [address] Chloride [Moles/Vol] 103 mmol/L Normal 98-108 [facility] Comment on above: Performed By: #### L 100.0100, L500.2500 ####[facility] [address] [place], [address] CO2 [Moles/Vol] 25.3 mmol/L Normal 21.0-32.0 [facility] Comment on above: Performed By: #### L 100.0100, L500.2500 ####[facility] [address] [place], [address] Creatinine [Mass/Vol] 1.02 mg/dL Normal 0.70-1.20 [facility] Comment on above: Performed By: #### L 100.0100, L500.2500 ####[facility] [address] [place], [address] ECRCL 116.54 ml/min Normal 50-250 [facility] Comment on above: Performed By: #### L 100.0100, L500.2500 ####[facility] [address] [place], [address] GAP 12 Normal 5-15 [facility] Comment on above: Performed By: #### L 100.0100, L500.2500 ####[facility] [address] [place], [address] GFR/1.73 sq M.predicted among non-blacks MDRD (S/P/Bld) [Vol rate/Area] 85 mL/min/{1.73_m2} Normal >60 [facility] Comment on above: Result Comment: mL/m in/1.73m2 CKD-EPI Creatinine Equation (2020) Performed By: #### L 100.0100, L500.2500 ####[facility] [address] [place], [address] Glucose [Mass/Vol] 163 mg/dL High 70-99 [facility] Comment on above: Performed By: #### L 100.0100, L500.2500 ####[facility] [address] [place], [address] Potassium [Moles/Vol] 3.3 mmol/L Normal 3.3-5.1 [facility] Comment on above: Performed By: #### L 100.0100, L500.2500 ####[facility] [address] [place], [address] Sodium [Moles/Vol] 140 mmol/L Normal 133-145 [facility] Comment on above: Performed By: #### L 100.0100, L500.2500 ####[facility] [address] [place], [address] Urea nitrogen [Mass/Vol] 18 mg/dL Normal 4-19 [facility] Comment on above: Performed By: #### L 100.0100, L500.2500 ####[facility] [address] [place], [address] Bilirubin Test strip Ql (U)O rdered By: Thierno Estrada on 03-02-2025 Bilirubin Ql (U) Negative Negative [facility] Blood Gases by [facility] 025 SHERRELL TEST Positive Normal [facility] Comment on above: Performed By: #### L 9000.0800 ####[facility] [address] [place], [address] Base excess Calc (Bld) [Moles/Vol] 5 mmol/L High -2 to +2 [facility] Comment on above: Performed By: #### L 9000.0800 ####[facility] [address] [place], [address] Blood Gas Type ART Normal [facility] Comment on above: Performed By: #### L 8999.0800 ####[facility] [address] [place], [address] CO2 [Moles/Vol] 32 mmol/L Normal [facility] Comment on above: Performed By: #### L 8999.08 ####[facility] [address] [place], [address] FI02 2.0 Normal [facility] Comment on above: Performed By: #### L 8999.0800 ####[facility] [address] [place], [address] HCO3 (Bld) [Moles/Vol] 30.3 mmol/L High 22-26 [facility] Comment on above: Performed By: #### L 8999.0800 ####[facility] [address] [place], [address] Mode Not entered Normal [facility] Comment on above: Performed By: #### L 8999.08 ####[facility] [address] [place], [address] O2 Delivery Dev Cannula Normal [facility] Comment on above: Performed By: #### L 8999.0800 ####[facility] [address] [place], [address] pCO2 50.5 mmHg High 35-45 [facility] Comment on above: Performed By: #### L 8999.0800 ####[facility] [address] [place], [address] pH (Bld) 7.39 [pH] Normal 7.35-7.45 [facility] Comment on above: Performed By: #### L 8999.0800 ####[facility] [address] [place], [address] PO2 44 mmHG Low 75-100 [facility] Comment on above: Performed By: #### L 9000.0800 ####[facility] [address] [place], [address] SITE L Radial Normal [facility] Comment on above: Performed By: #### L 9000.0800 ####[facility] [address] [place], [address] SO2 79 Low 95-99 [facility] Comment on above: Performed By: #### L 9000.0800 ####[facility] [address] [place], [address] Blood base excess determinat ionOrdered By: Thierno Estrada on 03-02-2025 Base excess Calc (BldV) [Moles/Vol] 5 mmol/L High -- [facility] Blood bicarbonate measuremen tOrdered By: Thierno Estrada on 03-02-2025 Blood Gas Bicarbonate Actual 30.3 mmol/L High [facility] HCO3 (Bld) [Moles/Vol] 30.3 mmol/L High - [facility] CBC W/Diff, Automatedon 02-07 Absolute Lymph 1.09 X10 3/uL Normal 0.83-4.51 [facility] Comment on above: Performed By: #### L 100.0100, L500.2500 ####[facility] [address] [place], [address] Absolute Neut 3.3 X10 3/uL Normal 2.0-7.7 [facility] Comment on above: Performed By: #### L 100.0100, L500.2500 ####[facility] [address] [place], [address] Basophils/100 WBC (Bld) 0.6 % Normal 0-1 [facility] Comment on above: Performed By: #### L 100.0100, L500.2500 ####[facility] [address] [place], [address] Eosinophils/100 WBC (Bld) 2.2 % Normal 0-5 [facility] Comment on above: Performed By: #### L 100.0100, L500.2500 ####[facility] [address] [place], [address] Erythrocyte distribution width (RBC) [Ratio] 14.3 % Normal 11.6-14.6 [facility] Comment on above: Performed By: #### L 100.0100, L500.2500 ####[facility] [address] [place], [address] Hematocrit (Bld) [Volume fraction] 34.6 % Low 40-54 [facility] Comment on above: Performed By: #### L 100.0100, L500.2500 ####[facility] [address] [place], [address] Hemoglobin (Bld) [Mass/Vol] 11.6 g/dL Low 13.0-16.5 [facility] Comment on above: Performed By: #### L 100.0100, L500.2500 ####[facility] [address] [place], [address] IG% 0.400 Normal 0.0-0.9 [facility] Comment on above: Result Comment: IG% - Immature Granulocytes (promyelocytes, myelocytes and metamyelocytes) > 1% indicates that a LEFT SHIFT is Present. Performed By: #### L 100.0100, L500.2500 ####[facility] [address] [place], [address] Lymphocytes/100 WBC (Bld) 21.8 % Normal 19-41 [facility] Comment on above: Performed By: #### L 100.0100, L500.2500 ####[facility] [address] [place], [address] MCH (RBC) [Entitic mass] 29.4 pg Normal 27.0-32.0 [facility] Comment on above: Performed By: #### L 100.0100, L500.2500 ####[facility] [address] [place], [address] MCHC (RBC) [Mass/Vol] 33.5 g/dL Normal 32-36 [facility] Comment on above: Performed By: #### L 100.0100, L500.2500 ####[facility] [address] [place], [address] MCV (RBC) [Entitic vol] 87.6 fL Normal 80-94 [facility] Comment on above: Performed By: #### L 100.0100, L500.2500 ####[facility] [address] [place], [address] Monocytes/100 WBC (Bld) 8.2 % Normal 0-10 [facility] Comment on above: Performed By: #### L 100.0100, L500.2500 ####[facility] [address] [place], [address] Neutrophils/100 WBC (Bld) 66.8 % Normal 47-70 [facility] Comment on above: Performed By: #### L 100.0100, L500.2500 ####[facility] [address] [place], [address] Nucleated RBC (Bld) [#/Vol] 0 10*3/uL Normal 0-5 [facility] Comment on above: Performed By: #### L 100.0100, L500.2500 ####[facility] [address], [address] Platelet mean volume (Bld) [Entitic vol] 10.5 fL Normal 6.2-12.0 [facility] Comment on above: Performed By: #### L 100.0100, L500.2500 ####[facility] [address] [place], [address] Platelets (Bld) [#/Vol] 225 10*3/uL Normal 150-450 [facility] Comment on above: Performed By: #### L 100.0100, L500.2500 ####[facility] [address] [place], [address] RBC (Bld) [#/Vol] 3.95 10*6/uL Low 4.6-6.2 [facility] Comment on above: Performed By: #### L 100.0100, L500.2500 ####[facility] [address] [place], [address] RDW SD 45.5 fl High 35.1-43.9 [facility] Comment on above: Performed By: #### L 100.0100, L500.2500 ####[facility] [address] [place], [address] WBC (Bld) [#/Vol] 5.0 10*3/uL Normal 4.4-11.0 [facility] Comment on above: Performed By: #### L 100.0100, L500.2500 ####[facility] [address] [place], [address] CNOVon 03-02-2025 CNOV Office Visit ([facility] ) -- JOSÉ MIGUEL YOUNG SR. ([id number]) 1965 M Date Time Provider Department 03/02/25 7:00 PM LILIAN MCKENNA [facility] During your visit today, we recorded the following information about you: Pulse 147/minute Lilian Mckenna APRN.[employer] INSTRUCTOR 03/02/2025 7:00 PM Signed Patient came in [...] Status:Closed by LILIAN MCKENNA on 03/02/25 Normal [facility] CRPon 03-02-2025 C-REACTIVE PROT 7.71 mg/L High 0.0-3.0 [facility] Comment on above: Performed By: #### L 501.6710, L501.2300 ####[facility] [address] [facility] [place], [address] CRP [Mass/Vol]Ordered By: Arcadio Estrada on 03-02-2025 C-Reactive Protein Extended Range 7.71 mg/L High 0.0-3.0 [facility] CTA Chest W/WO Contraston CTA Chest W/WO Contrast [facility] Imaging Services [address] [place] [address] CTA Chest W/WO Contrast MR#: [id number] Acct: [id number] Name: JOSÉ MIGUEL YOUNGIS Sr. Rep #: [id number] : 1965 M 59 From: Poncho Garza MD PCP: Dr. Pierce Wells MD Status: REG ER Study: CTA Chest W/WO Contrast Date of Exam: 03/02/25 Exam# [id number] Ordering Dr: Tyron Valiente MD PROCEDURE: CTA [...] with a small pericardial effusion. Reading Location: [facility] CC: Dr. Tyron Valiente MD; Dr. Pierce Wells MD Transportation Modeler: Signed Normal [facility] Chest 1 View (Portable)on Chest 1 View (Portable) [facility] Imaging Services [address] [place] [address] Chest 1 View (Portable) MR#: [id number] Acct: [id number] Name: JOSÉ MIGUEL YOUNG . Rep #: [id number] : 1965 M 59 From: Poncho Garza MD PCP: Dr. Pierce Wells MD Status: PRE ER Study: Chest 1 View (Portable) Date of Exam: 03/02/25 Exam# [id number] Ordering Dr: Tyron Valiente MD PROCEDURE: CHEST 1 VIEW (PORTABLE) 03/02/2025 REASON FOR EXAM: COUGH TECHNIQUE: Frontal view of the chest. FINDINGS: Hardware: None Heart: Heart size is moderately enlarged. Lungs: The lungs are clear. Bones: The bones are unremarkable. Other: RAD/Chest 1 View (Portable) IMPRESSION: No Acute Findings. Reading Location: [facility] CC: Dr. Tyron Valiente MD; Dr. Pierce Wells MD Transportation Modeler: Signed Normal [facility] D-Dimer Quantitative (DVT/PE )on 03-02-2025 D-DIMER QUANT 0.53 FEU/ug/m Invalid Interpretation Code 0.27-0.49 [facility] Comment on above: Result Comment: D-Di leticia ELEVATED (>0.49): Additional studies and clinical assessments are indicated to conclude diagnosis of: Deep Vein Thrombosis (DVT) or Pulmonary Embolism (PE) [facility]25 2349 Anic[address] R Francisco. RESULTS READ BACK BY SAME. Performed By: #### L 300.8000, L101.9900 ####[facility] [address] [facility] [place], [address] D-dimer measurement for deep venous thrombosisOrdered By: Thierno Estrada on 03-02-2025 D-Dimer Quantitative (PE/DVT) 0.53 FEU/ug/m High 0.27-0.49 [facility] Comment on above: D-Dimer ELEVATED (>0 .49): Additional studies and clinicalassessments are indicated to conclude diagnosis of:Deep Vein Thrombosis (DVT) or Pulmonary Embolism (PE)CRITICAL VALUE CALLED TO BTZYQDJNI33/25/25 2349 [address] Francisco.RESULTS READ BACK BY SAME. Determination of fraction of inspired oxygenOrdered By: Thierno Estrada on 03-02-2025 Blood Gas Oxygen Percent 2.0 [facility] Echo Complete W/ Contraston 03-02-2025 Echo Complete W/ Contrast [facility] [address] [facility] [place] [address] Echo Complete W/ Contrast 03/03/25 0806 MR#: [id number] Acct: [id number] Name: MEMEYULISSAJAYCEJOSÉ MIGUEL . Rep #: [id number] : 1965 59 From: Sagrario Casanova MD Attending Dr: Dr. Pierce Florian DO Status: A DM IN Ordering Dr: Thierno Campos DO Date: 03/02/25 Location: [facility] Sex: M C Admitted: 03/02/25 Reason [...] Dictated: 03/03/25 0806 Date Transcribed: 03/03/25 112 Transportation Modeler: Signed Normal [facility] Emergency Department Summary on 03-02-2025 Emergency Department Summary [facility] Medical Records Department [address] [place] [address] Emergency Department Summary 03/02/25 MR#: [id number] Acct: [id number] Name: JOSÉ MIGUEL YOUNG Sr. Rep #: [id number] : 1965 59 From: Tyron Valiente MD [...] leg swelling. 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 [...] wheezy. No history of congestive heart failure. [facility] Medical History Shoulder pain HTN (hypertension) [...] versus pulmon (more content not included)... Normal [facility] Epithelial cells.squamous LM Ql (Urine sed)Ordered By: Thierno Estrada on 03-02-2025 Epithelial cells.squamous LM.HPF (Urine sed) [#/Area] 0 /[HPF] 0-5 [facility] Erythrocyte Sed Rateon 03-02 SED RATE 9 mm/hr Normal 0-20 [facility] Comment on above: Performed By: #### L 300.8000, L101.9900 ####[facility] [address] [facility] [place], [address] Erythrocyte sedimentation ra teOrdered By: Thierno Estrada on 03-02-2025 ESR (Bld) [Velocity] 9 mm/h 0-20 [facility] Extremity Lower WITH Contras ton 03-02-2025 Extremity Lower WITH Contrast [facility] Imaging Services [address] [place], [place] [id number] Extremity Lower WITH Contrast MR#: [id number] Acct: [id number] Name: JOSÉ MIGUEL YOUNG . Rep #: [id number] : 1965 M 59 From: Poncho Garza MD PCP: Dr. Pierce Wells MD Status: ADM IN Study: Extremity Lower WITH Contrast Date of Exam: Exam# [id number] Ordering Dr: Tyron Valiente MD PROCEDURE: EXTREMITY [...] but no abscess or osteomyelitis. Reading Location: [facility] CC: Dr. Tyron Valiente MD; Dr. Pierce Wells MD Transportation Modeler: Signed Normal [facility] Glucose Ql (U)Ordered By: Arcadio Estrada on 03-02-2025 Urine Glucose (UA) Normal mg/dl Normal [facility] H AND P Exam - Hospitaliston 03-02-2025 H&P Exam - Hospitalist [facility] Medical Records Department [address] [place] [address] H P Exam - Hospitalist 03/02/25 2201 MR#: [id number] Acct: [id number] Name: JOSÉ MIGUEL YOUNG . Rep #: [id number] : 1965 59 From: Thierno Campos DO PCP: Dr. Pierce Wells MD Status:ADM IN Location: [place] [address] HPI - General General Date of Admission: 03/02/25 Date of Service: 03/02/25 Chief Complaint: SOB and Wheezing. 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 He admits to redness of the skin [...] is expected to extend beyond 2 midnights. [facility] Medical History Shoulder pain HTN (hypertension) [...] denies s (more content not included)... Normal [facility] Hemoglobin A1con 03-02-2025 HbA1c (Bld) [Mass fraction] 5.6 % Normal <=5.6 [facility] Comment on above: Result Comment: Norm al < 5.7 % Prediabetic 5.7 - 6.4 % Diabetic >or= 6.5 % Please note range changes. Performed By: #### L 506.0200, L501.9985 ####[facility] [address] [place], [place], [address] Hemoglobin A1c percentageOrd ered By: Thierno Estrada on 03-02-2025 HbA1c (Bld) [Mass fraction] 5.6 % <5.7 [facility] Comment on above: Normal < 5.7 % Predi abetic 5.7 - 6.4 % Diabetic >or= 6.5 % Please note range changes. Ketones Test strip Ql (U)Ord ered By: Thierno Estrada on 03-02-2025 Ketones Ql (U) Negative Negative [facility] L503.7505on 03-02-2025 Natriuretic peptide B (Bld) [Mass/Vol] 1559 pg/mL High <=900 [facility] Comment on above: Result Comment: Hear t Failure Unlikely: < 300 pg/mL Heart Failure Likely < 50 Years: > 450 pg/mL 50-75 Years: > 900 pg/mL >75 Years: > 1800 pg/mL Performed By: #### L 503.7505 ####[facility] [address] [place], [place], [address] Magnesium (Unsp spec) [Mass/ Vol]Ordered By: Thierno Estrada on 03-02-2025 Magnesium [Mass/Vol] 1.8 mg/dL 1.5-2.2 [facility] Magnesium measurement (mass/ volume)Ordered By: Thierno Estrada on 03-02-2025 Magnesium (Unsp spec) [Mass/Vol] 1.8 mg/dL 1.5-2.2 [facility] Measurement, pHOrdered By: Mao Estrada on 03-02-2025 pH (Unsp spec) 7.39 [pH] 7.35-7.45 [facility] Microscopic analysis of urin e for red blood cells (RBC)Ordered By: Thierno Estrada on 03-02-2025 Microscopic analysis of urine for red blood cells (RBC) 0 SEEN /hpf 0-5 [facility] Urine RBC 0 SEEN /hpf 0-5 [facility] Mucus LM Ql (Urine sed)Order ed By: Thierno Estrada on 03-02-2025 Mucus Ql (Urine sed) 0 SEEN /hpf [facility] Nitrite Test strip Ql (U)Ord ered By: Thierno Estrada on 03-02-2025 Nitrite Ql (U) Negative Negative [facility] No Panel InformationOrdered By: Thierno Estrada on 03-02-2025 Blood Gas Vent Mode Not entered [facility] Oxygen saturation measuremen tOrdered By: Thierno Estrada on 03-02-2025 Blood Gas Oxygen Saturation 79 % Low 95-99 [facility] Partial pressure of carbon d ioxide measurementOrdered By: Thierno Estrada on 03-02-2025 Arterial Blood Partial Pressure CO2 50.5 mmHg High 35-45 [facility] Partial pressure of oxygen m easurementOrdered By: Thierno Estrada on 03-02-2025 Arterial Blood Partial Pressure O2 44 mmHG Low 75-100 [facility] Phosphoruson 03-02-2025 Phosphate [Mass/Vol] 2.9 mg/dL Normal 2.7-4.5 [facility] Comment on above: Performed By: #### L 501.6710, L501.2300 ####[facility] [address] [place], [place], [address] Protein Test strip Ql (U)Ord ered By: Thierno Estrada on 03-02-2025 Protein Ql (U) Negative Negative [facility] Respiratory pathogens DNA an d RNA panel PATRICIA+probe (Resp)Ordered By: Thierno Estrada on 03-02-2025 Respiratory Panel (PCR) [facility] Respiratory pathogens detect ion panel by molecular detection methodOrdered By: Thierno Estrada on 03-02-2025 Respiratory pathogens DNA and RNA panel PATRICIA+probe (Resp) [facility] Serum or plasma C reactive p rotein measurement (mass/volume)Ordered By: Thierno Estrada on 03-02-2025 CRP [Mass/Vol] 7.71 mg/L High 0.0-3.0 [facility] Squamous epithelial cells de tection in urine sediment by light microscopyOrdered By: Thierno Estrada on 03-02-2025 Epithelial cells.squamous LM Ql (Urine sed) 0 SEEN /hpf 0-5 [facility] TSH DL <= 0.005 mIU/L QnOrde red By: Thierno Estrada on 03-02-2025 Thyroid Stimulating Hormone (TSH) 3.740 uIU/mL 0.300-4.200 [facility] TSH Qn 3.740 uIU/mL 0.300-4.200 [facility] Total carbon dioxide measure mentOrdered By: Thierno Estrada on 03-02-2025 Blood Gas Total CO2 32 mmol/L [facility] CO2 [Moles/Vol] 32 mmol/L [facility] Urinalysis, Completeon 03-02 BACTERIA 0 SEEN Normal None Seen [facility] Comment on above: Order Comment: CLEAN CATCH Performed By: #### L 400.0001 ####[facility] [address] [place], [address] EPI,SQUAMOUS 0 SEEN Normal 0-5 [facility] Comment on above: Order Comment: CLEAN CATCH Performed By: #### L 400.0001 ####[facility] [address] [place], [address] Mucus Ql (Urine sed) 0 SEEN Normal [facility] Comment on above: Order Comment: CLEAN CATCH Performed By: #### L 400.0001 ####[facility] [address] [place], [address] RBC 0 SEEN Normal 0-5 [facility] Comment on above: Order Comment: CLEAN CATCH Performed By: #### L 400.0001 ####[facility] [address] [place], [address] WBC 0 SEEN Normal 0-5 [facility] Comment on above: Order Comment: CLEAN CATCH Performed By: #### L 400.0001 ####[facility] [address] [place], [address] Urine blood detectionOrdered By: Thierno Estrada on 03-02-2025 Urine Occult Blood Negative Negative [facility] Urine clarityOrdered By: Joey Estrada on 03-02-2025 Clarity (U) Clear Clear [facility] Urine color determinationOrd ered By: Thierno Estrada on 03-02-2025 Color (U) Yellow Yellow [facility] Urine glucose detectionOrder ed By: Thierno Estrada on 03-02-2025 Glucose Ql (U) Normal mg/dl Normal [facility] Urine leukocyte esterase det ection by dipstickOrdered By: Thierno Estrada on 03-02-2025 Leukocyte esterase Test strip Ql (U) Negative Negative [facility] Urine pHOrdered By: Thierno dahl on 03-02-2025 pH (U) 6.0 [pH] 5.0 - 8.0 [facility] Urine sediment bacteria coun t by microscopy (number/high power field)Ordered By: Thierno Estrada on 03-02-2025 Bacteria LM.HPF (Urine sed) [#/Area] 0 /[HPF] None Seen [facility] Urine specific gravity measu rementOrdered By: Thierno Estrada on 03-02-2025 Specific gravity (U) [Rel density] 1.010 1.002-1.030 [facility] Urine urobilinogen measureme ntOrdered By: Thierno Estrada on 03-02-2025 Urobilinogen Ql (U) Normal mg/dl Normal [facility] Urobilinogen Ql (U)Ordered B y: Thierno Estrada on 03-02-2025 Urine Urobilinogen Normal mg/dl Normal [facility] Vitamin B12 ser/plasOrdered By: Thierno Estrada on 03-02-2025 Cobalamin (Vitamin B12) [Mass/Vol] 260 pg/mL 180-914 [facility] White blood cell countOrdere d By: Thierno Estrada on 03-02-2025 Urine WBC 0 SEEN /hpf 0-5 [facility] White blood cell count 0 SEEN /hpf 0-5 [facility] pH (Unsp spec)Ordered By: Arcadio Estrada on 03-02-2025 Blood Gas pH 7.39 7.35-7.45 [facility] JOSÉ MIGUEL YOUNG SR. ([id number]) 1965 M Date Time Provider Department 01/01/25 [facility] During your visit today, we recorded [...] to return. 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 Aware provider is not in until later [...] Encounter Status:Closed by QING SAAB on 01/01/25 [facility] CNOVon 12-29-2024 CNOV Office Visit ([facility] ) -- JOSÉ MIGUEL YOUNG SR. ([id number]) 1965 M Date Time Provider Department 12/29/24 [...] for cough. (more content not included)... Normal [facility] 12[facility]-20[facility] JOSÉ MIGUEL YOUNG SR. ([id number]) 1965 M Date Time Provider Department 12/15/24 [facility] During your visit today, we recorded the following information about you: Braeden Valdes RN 12/15/2024 3:28 PM Signed Spouse [...] Date Reviewed: 09/12/2024 Reviewed by: Armani Leong APRN.[facility] - Fully Assessed Reason for Visit: [...] Status:Closed by BRAEDEN VALDES on 12/15/24 Normal [facility] CBC W Auto Differential pane l (Bld)on 09-12-2024 Basophils (Bld) [#/Vol] 0.03 10*3/uL [facility] Basophils/100 WBC (Bld) 0.5 % [facility] Differential cell count method Nom (Bld) Auto [facility] Eosinophils (Bld) [#/Vol] 0.10 10*3/uL [facility] Eosinophils/100 WBC (Bld) 1.7 % [facility] Erythrocyte distribution width (RBC) [Ratio] 12.9 % 11.5 - 15.0 % [facility] Hematocrit (Bld) [Volume fraction] 42.2 % 39.0 - 51.0 % [facility] Hemoglobin (Bld) [Mass/Vol] 14.3 g/dL 13.0 - 17.0 g/dL [facility] Immature granulocytes (Bld) [#/Vol] 0.03 10*3/uL [facility] Immature granulocytes/100 WBC (Bld) 0.5 % [facility] Lymphocytes (Bld) [#/Vol] 1.43 10*3/uL [facility] Lymphocytes/100 WBC (Bld) 23.7 % [facility] MCH (RBC) [Entitic mass] 29.3 pg 26.0 - 34.0 pg [facility] MCHC (RBC) [Mass/Vol] 33.9 g/dL 30.5 - 36.0 g/dL [facility] MCV (RBC) [Entitic vol] 86.5 fL 80.0 - 100.0 fL [facility] Monocytes (Bld) [#/Vol] 0.48 10*3/uL [facility] Monocytes/100 WBC (Bld) 7.9 % [facility] Neutrophils (Bld) [#/Vol] 3.97 10*3/uL [facility] Neutrophils/100 WBC (Bld) 65.7 % [facility] Nucleated RBC (Bld) [#/Vol] [facility] Nucleated RBC/100 WBC (Bld) [Ratio] 0.0 % /100 WBC [facility] Platelet mean volume (Bld) [Entitic vol] 10.4 fL 9.0 - 12.7 fL [facility] Platelets (Bld) [#/Vol] 239 10*3/uL [facility] RBC (Bld) [#/Vol] 4.88 10*6/uL 4.20 - 6.0 0 m/uL [facility] WBC (Bld) [#/Vol] 6.04 10*3/uL [facility] Basophils (Bld) [#/Vol] 0.03 10*3/uL Normal <0.11 [facility] Comment on above: Order Comment: Speci men Type: BLOOD SPECIMENOrdering Facility: [facility] Address: [address] [place], [place] [address] Performed By: #### 5 7021-8 ####[facility] LABCLIA [id number] [place] [address] [place] Basophils/100 WBC (Bld) 0.5 % Normal [facility] Comment on above: Order Comment: Speci men Type: BLOOD SPECIMENOrdering Facility: [facility] Address: [address] [place] [address] Performed By: #### 5 7021-8 ####[facility] LABCLIA [id number] [place] [address] [place] Differential cell count method Nom (Bld) Auto Normal [facility] Comment on above: Order Comment: Speci men Type: BLOOD SPECIMENOrdering Facility: [facility] Address: [address] [place] [address] Performed By: #### 5 7021-8 ####[facility] LABCLIA [id number] [place] [address] [place] Eosinophils (Bld) [#/Vol] 0.10 10*3/uL Normal <0.46 [facility] Comment on above: Order Comment: Speci men Type: BLOOD SPECIMENOrdering Facility: [facility] Address: [address] [place] [address] Performed By: #### 5 7021-8 ####[facility] LABCLIA [id number] [place] [address] [place] Eosinophils/100 WBC (Bld) 1.7 % Normal [facility] Comment on above: Order Comment: Speci men Type: BLOOD SPECIMENOrdering Facility: [facility] Address: [address] [place] [address] Performed By: #### 5 7021-8 ####[facility] LABCLIA [id number] [place] [address] [place] Erythrocyte distribution width (RBC) [Ratio] 12.9 % Normal 11.5-15.0 [facility] Comment on above: Order Comment: Speci men Type: BLOOD SPECIMENOrdering Facility: [facility] Address: [address] [place] [address] Performed By: #### 5 7021-8 ####[facility] LABCLIA [id number] [place] [address] [place] Hematocrit (Bld) [Volume fraction] 42.2 % Normal 39.0-51.0 [facility] Comment on above: Order Comment: Speci men Type: BLOOD SPECIMENOrdering Facility: [facility] Address: [address] [place] [address] Performed By: #### 5 7021-8 ####[facility] LABIA [id number] [place] [address] [place] Hemoglobin (Bld) [Mass/Vol] 14.3 g/dL Normal 13.0-17.0 [facility] Comment on above: Order Comment: Speci men Type: BLOOD SPECIMENOrdering Facility: [facility] Address: [address] [place] [address] Performed By: #### 5 7021-8 ####[facility] LABIA [id number] [place] [address] [place] Immature granulocytes (Bld) [#/Vol] 0.03 10*3/uL Normal <0.10 [facility] Comment on above: Order Comment: Speci men Type: BLOOD SPECIMENOrdering Facility: [facility] Address: [address] [place] [address] Performed By: #### 5 7021-8 ####[facility] LABCLIA [id number] [place] [address] [place] Immature granulocytes/100 WBC (Bld) 0.5 % Normal [facility] Comment on above: Order Comment: Speci men Type: BLOOD SPECIMENOrdering Facility: [facility] Address: [address] [place] [address] Performed By: #### 5 7021-8 ####[facility] LABCLIA [id number] [place] [address] [place] Lymphocytes (Bld) [#/Vol] 1.43 10*3/uL Normal 1.00-4.00 [facility] Comment on above: Order Comment: Speci men Type: BLOOD SPECIMENOrdering Facility: [facility] Address: [address] [place] [address] Performed By: #### 5 7021-8 ####[facility] LABCLIA [id number] [place] [address] [place] Lymphocytes/100 WBC (Bld) 23.7 % Normal [facility] Comment on above: Order Comment: Speci men Type: BLOOD SPECIMENOrdering Facility: [facility] Address: [address] [place] [address] Performed By: #### 5 7021-8 ####[facility] LABCLIA [id number] [place] [address] [place] MCH (RBC) [Entitic mass] 29.3 pg Normal 26.0-34.0 [facility] Comment on above: Order Comment: Speci men Type: BLOOD SPECIMENOrdering Facility: [facility] Address: [address] [place] [address] Performed By: #### 5 7021-8 ####[facility] LABCLIA [id number] [place] [address] [place] MCHC (RBC) [Mass/Vol] 33.9 g/dL Normal 30.5-36.0 [facility] Comment on above: Order Comment: Speci men Type: BLOOD SPECIMENOrdering Facility: [facility] Address: [address] [place] [address] Performed By: #### 5 7021-8 ####[facility] LABCLIA [id number] [place] [address] [place] MCV (RBC) [Entitic vol] 86.5 fL Normal 80.0-100.0 [facility] Comment on above: Order Comment: Speci men Type: BLOOD SPECIMENOrdering Facility: [facility] Address: [address] [place] [address] Performed By: #### 5 7021-8 ####[facility] LABCLIA [id number] [place] [address] [place] Monocytes (Bld) [#/Vol] 0.48 10*3/uL Normal <0.87 [facility] Comment on above: Order Comment: Speci men Type: BLOOD SPECIMENOrdering Facility: [facility] Address: [address] [place] [address] Performed By: #### 5 7021-8 ####[facility] LABCLIA [id number] [place] [address] [place] Monocytes/100 WBC (Bld) 7.9 % Normal [facility] Comment on above: Order Comment: Speci men Type: BLOOD SPECIMENOrdering Facility: [facility] Address: [address] [place] [address] Performed By: #### 5 7021-8 ####[facility] LABCLIA [id number] [place] [address] [place] Neutrophils (Bld) [#/Vol] 3.97 10*3/uL Normal 1.45-7.50 [facility] Comment on above: Order Comment: Speci men Type: BLOOD SPECIMENOrdering Facility: [facility] Address: [address] [place] [address] Performed By: #### 5 7021-8 ####[facility] LABCLIA [id number] [place] [address] [place] Neutrophils/100 WBC (Bld) 65.7 % Normal [facility] Comment on above: Order Comment: Speci men Type: BLOOD SPECIMENOrdering Facility: [facility] Address: [address] [place] [address] Performed By: #### 5 7021-8 ####[facility] LABCLIA [id number] [place] [address] [place] Nucleated RBC (Bld) [#/Vol] 10*3/uL Normal <0.01 [facility] Comment on above: Order Comment: Speci men Type: BLOOD SPECIMENOrdering Facility: [facility] Address: [address] [place] [address] Performed By: #### 5 7021-8 ####[facility] LABCLIA [id number] [place] [address] [place] Nucleated RBC/100 WBC (Bld) [Ratio] 0.0 /100 WBC Normal [facility] Comment on above: Order Comment: Speci men Type: BLOOD SPECIMENOrdering Facility: [facility] Address: [address] [place] [address] Performed By: #### 5 7021-8 ####[facility] LABCLIA [id number] [place] [address] [place] Platelet mean volume (Bld) [Entitic vol] 10.4 fL Normal 9.0-12.7 [facility] Comment on above: Order Comment: Speci men Type: BLOOD SPECIMENOrdering Facility: [facility] Address: [address] [place] [address] Performed By: #### 5 7021-8 ####[facility] LABCLIA [id number] [place] [address] [place] Platelets (Bld) [#/Vol] 239 10*3/uL Normal 150-400 [facility] Comment on above: Order Comment: Speci men Type: BLOOD SPECIMENOrdering Facility: [facility] Address: [address] [place] [address] Performed By: #### 5 7021-8 ####[facility] LABCLIA [id number] [place] [address] [place] RBC (Bld) [#/Vol] 4.88 10*6/uL Normal 4.20-6.00 [facility] Comment on above: Order Comment: Speci men Type: BLOOD SPECIMENOrdering Facility: [facility] Address: [address] [place] [address] Performed By: #### 5 7021-8 ####[facility] LABCLIA [id number] [place] [address] [place] WBC (Bld) [#/Vol] 6.04 10*3/uL Normal 3.70-11.00 [facility] Comment on above: Order Comment: Speci men Type: BLOOD SPECIMENOrdering Facility: [facility] Address: [address] [place] [address] Performed By: #### 5 7021-8 ####[facility] LABCLIA [id number] [address] [place] CNOVon 09-12-2024 [facility] -- JOSÉ MIGUEL YOUNG SR. ([id number]) 1965 M Date Time Provider Department 09/12/24 1:00 PM ARMANI LEONG [facility] During your visit today, we recorded the following information about you: Pulse Respiration Blood pressure Weight 68/minute 16/minute 136/82 161 kg Armani Leong APRN.[employer] 09/12/2024 1:29 PM Signed Chief Complaint Patient [...] Head: Normoc (more content not included)... Normal [facility] Comprehensive metabolic 2000 panelon 09-12-2024 Albumin [Mass/Vol] 4.4 g/dL Normal 3.9-4.9 [facility] Comment on above: Order Comment: Speci men Type: BLOOD SPECIMENOrdering Facility: [facility] Address: [address] [place] [address] Performed By: #### [place], [address]-4 ####[facility] LABCLIA [id number] [facility] [id number] [address] [place] ALP [Catalytic activity/Vol] 52 U/L Normal 38-113 [facility] Comment on above: Order Comment: Speci men Type: BLOOD SPECIMENOrdering Facility: [facility] Address: [address] [place] [address] Performed By: #### L GEOVANNA, 95994-8 ####[facility] LABCLIA [id number] [place] [address] [place] ALT [Catalytic activity/Vol] 46 U/L Normal 10-54 [facility] Comment on above: Order Comment: Speci men Type: BLOOD SPECIMENOrdering Facility: [facility] Address: [address] [place] [address] Result Comment: Resu lts may be falsely increased due to interference from hemolysis. Suggest reorder as clinically indicated. Performed By: #### L GEOVANNA, 54123-0 ####[facility] LABCLIA [id number] [place] [address] [place] Anion gap [Moles/Vol] 14 mmol/L Normal 8-15 [facility] Comment on above: Order Comment: Speci men Type: BLOOD SPECIMENOrdering Facility: [facility] Address: [address] [place] [address] Performed By: #### L GEOVANNA, 64892-9 ####[facility] LABCLIA [id number] [place] [address] [place] AST [Catalytic activity/Vol] 58 U/L High 14-40 [facility] Comment on above: Order Comment: Speci men Type: BLOOD SPECIMENOrdering Facility: [facility] Address: [address] [place] [address] Result Comment: Resu lts may be falsely increased due to interference from hemolysis. Suggest reorder as clinically indicated. Performed By: #### L GEOVANNA, 83894-8 ####[facility] LABCLIA [id number] [place] [address] [place] Bilirubin [Mass/Vol] 1.1 mg/dL Normal 0.2-1.3 [facility] Comment on above: Order Comment: Speci men Type: BLOOD SPECIMENOrdering Facility: [facility] Address: [address] [place], [place] [address] Performed By: #### L IPNF, 70654-7 ####[facility] LABCLIA [id number] [address] [address] [place] Calcium [Mass/Vol] 9.7 mg/dL Normal 8.5-10.2 [facility] Comment on above: Order Comment: Speci men Type: BLOOD SPECIMENOrdering Facility: [facility] Address: [address] [place] [address] Performed By: #### L IPNF, 37213-4 ####[facility] LABCLIA [id number] [place] [address] [place] Chloride [Moles/Vol] 102 mmol/L Normal 98-107 [facility] Comment on above: Order Comment: Speci men Type: BLOOD SPECIMENOrdering Facility: [facility] Address: [address] [place], [place] [address] Performed By: #### L IPNF, 87067-1 ####[facility] LABCLIA [id number] [place] [address] [place] CO2 [Moles/Vol] 23 mmol/L Normal 22-30 [facility] Comment on above: Order Comment: Speci men Type: BLOOD SPECIMENOrdering Facility: [facility] Address: [address] [place], [place] [address] Performed By: #### L IPNF, 43723-6 ####[facility] LABCLIA [id number] [place] [id number] [place] Creatinine [Mass/Vol] 0.89 mg/dL Normal 0.73-1.22 [facility] Comment on above: Order Comment: Speci men Type: BLOOD SPECIMENOrdering Facility: [facility] Address: [address] [place] [address] Performed By: #### L GEOVANNA, 66102-9 ####[facility] LABCLIA [id number] [place] [address] [place] Creatinine and Glomerular filtration rate.predicted panel (S/P/Bld) 99 mL/min/1.73m??? Normal >=60 [facility] Comment on above: Order Comment: Leonie schultz Type: BLOOD SPECIMENOrdering Facility: [facility] Address: [address] [place] [address] Result Comment: Tata mated Glomerular Filtration Rate [...] actual GFR. Performed By: #### L GEOVANNA, 68299-9 ####[facility] LABCLIA [id number] [place] [address] [place] Glucose [Mass/Vol] 139 mg/dL High 74-99 [facility] Comment on above: Order Comment: Leonie schultz Type: BLOOD SPECIMENOrdering Facility: [facility] Address: [address] [place] [address] Result Comment: The [place] Diabetes Association (ADA) provides guidance for cutoff [...] Standards of Medical Care in Diabetes 2016, [place] [employer]. Diabetes Care. 2016.39(Suppl 1). Performed By: #### L GEOVANNA, 64956-4 ####[facility] LABCLIA [id number] [place] [address] [place] Potassium [Moles/Vol] 4.6 mmol/L Normal 3.7-5.1 [facility] Comment on above: Order Comment: Speci men Type: BLOOD SPECIMENOrdering Facility: [facility] Address: [address] [place] [address] Performed By: #### L IPNF, ####[facility] LABCLIA [id number] [place] [address] [place] Protein [Mass/Vol] 7.8 g/dL Normal 6.3-8.0 [facility] Comment on above: Order Comment: Speci men Type: BLOOD SPECIMENOrdering Facility: [facility] Address: [address] [place] [address] Performed By: #### L IPNF, 59915-1 ####[facility] LABCLIA [id number] [place] [address] [place] Sodium [Moles/Vol] 139 mmol/L Normal 136-144 [facility] Comment on above: Order Comment: Speci men Type: BLOOD SPECIMENOrdering Facility: [facility] Address: [address] [place] [address] Performed By: #### L IPNF, 12484-1 ####[facility] LABCLIA [id number] [place] [address] [place] Urea nitrogen [Mass/Vol] 16 mg/dL Normal 9-24 [facility] Comment on above: Order Comment: Speci men Type: BLOOD SPECIMENOrdering Facility: [facility] Address: [address] [place] [address] Performed By: #### L IPNF, 55271-4 ####[facility] LABCLIA [id number] [place] [address] [place] HbA1c (Bld)on 09-12-2024 Average glucose Estimated from glycated hemoglobin (Bld) [Mass/Vol] 117 mg/dL Normal [facility] Comment on above: Order Comment: Leonie schultz Type: BLOOD SPECIMENOrdering Facility: [facility] Address: [address] [place] [address] Result Comment: eAG: (Estimated average glucose) is a calculated value from HgbA1c and is insurance claim representative of the average blood glucose level in the last 2-3 month period. Performed By: #### 5 5454-3 ####[facility] LABCLIA [id number] [place] [address] [place] HbA1c (Bld) [Mass fraction] 5.7 % High 4.3-5.6 [facility] Comment on above: Order Comment: Leonie schultz Type: BLOOD SPECIMENOrdering Facility: [facility] Address: [address] [place] [address] Result Comment: [place] Diabetes Association guidelines indicate that patients with HgbA1c in the range 5.7-6.4% are at increased risk for development of diabetes, and intervention by lifestyle modification may be beneficial. HgbA1c greater or equal to 6.5% is considered diagnostic of diabetes. Performed By: #### 5 5454-3 ####[facility] LABCLIA [id number] [place] [address] [place] LIPID PANEL, NONFASTINGon Cholesterol [Mass/Vol] 153 mg/dL Normal <200 [facility] Comment on above: Order Comment: Leonie schultz Type: BLOOD SPECIMENOrdering Facility: [facility] Address: [address] [place] [address] Result Comment: <200 mg/dL, Desirable 200-239 mg/dL, Borderline high >239 mg/dL, High Performed By: #### L IP, 62915-9 ####[facility] LABIA [id number] [place] [address] [place] HDL CHOLESTEROL, NF 42 mg/dL Normal >39 [facility] Comment on above: Order Comment: Leonie schultz Type: BLOOD SPECIMENOrdering Facility: [facility] Address: [address] [place] [address] Result Comment: 40-5 9 mg/dL, Acceptable >59 mg/dL, High: Negative risk factor for coronary heart disease <40 mg/dL, Low: Positive risk factor for coronary heart disease Performed By: #### L GEOVANNA, 89898-0 ####[facility] LABCLIA [id number] [place] [address] [place] LDL CHOLESTEROL, NF 83 mg/dL Normal <100 [facility] Comment on above: Order Comment: Speci men Type: BLOOD SPECIMENOrdering Facility: [facility] Address: [address] [place] [address] Result Comment: <100 mg/dL, Optimal 100-129 mg/dL, Near optimal/above optimal 130-159 mg/dL, Borderline high 160-189 mg/dL, High >189 mg/dL, Very high Secondary prevention optimal LDL Cholesterol levels are recommended to be < 70 mg/dL Performed By: #### L GEOVANNA, ####[facility] LABCLIA [id number] [address] [place] LDL/HDL RATIO, NF 1.98 mg/dL Normal <2.54 [facility] Comment on above: Order Comment: Speci men Type: BLOOD SPECIMENOrdering Facility: [facility] Address: [address] [place] [address] Result Comment: Reflucero ohce: 1. National Cholesterol Education Program ATP III Guideline At-A-Glance Quick Desk Reference: National Heart, Lung, and Blood [place]. National Institutes of Health. 2001: NIH Publication No. 01-3305. 2. An International Atherosclerosis Society position paper: global recommendations for the management of dyslipidemia: executive summary, Atherosclerosis. 2014: 232(2):410-413. Performed By: #### L GEOVANNA, 63304-7 ####[facility] LABCLIA [id number] [place] [address] [place] NON HDL CHOL, NF 111 mg/dL Normal <[address] [facility] Comment on above: Order Comment: Speci men Type: BLOOD SPECIMENOrdering Facility: [facility] Address: [address] [place] [address] Result Comment: <130 mg/dL, Optimal 130-159 mg/dL, Near optimal/above optimal 160-189 mg/dL, Borderline high 190-219 mg/dL, High >219 mg/dL, Very high Secondary prevention optimal non HDL Cholesterol levels are recommended to be <100 mg/dL Performed By: #### L IPNF, ####[facility] LABCLIA [id number] [place] [address] [place] T CHOL/HDL RATIO NF 3.64 mg/dL Normal <5.10 [facility] Comment on above: Order Comment: Speci men Type: BLOOD SPECIMENOrdering Facility: [facility] Address: [address] [place] [address] Performed By: #### L IPNF, ####[facility] LABCLIA [id number] [place] [address] [place] TRIGLYCERIDES, NF 140 mg/dL Normal <150 [facility] Comment on above: Order Comment: Speci men Type: BLOOD SPECIMENOrdering Facility: [facility] Address: [address] [place] [address] Result Comment: <150 mg/dL, Normal 150-199 mg/dL, Borderline high 200-499 mg/dL, High >499 mg/dL, Very high Performed By: #### L IPNF, 47386-3 ####[facility] LABCLIA [id number] [place] [address] [place] VLDL CHOLESTEROL, NF 28 mg/dL Normal <30 [facility] Comment on above: Order Comment: Speci men Type: BLOOD SPECIMENOrdering Facility: [facility] Address: [address] [place] [address] Performed By: #### L IPNF, 66785-8 ####[facility] LABCLIA [id number] [place] [address] [place] PSA/PROSTATE SPECIFIC ANTIGE N SCREENINGon 09-12-2024 Prostate specific Ag [Mass/Vol] 0.13 ng/mL Normal <2.60 [facility] Comment on above: Order Comment: Speci men Type: BLOOD SPECIMENOrdering Facility: [facility] Address: [address] [place] [address] Result Comment: Tota l PSA test methodology used is the Electrochemiluminescence Immunoassay by [employer]. Total PSA values by differing methodologies cannot be interchanged. Performed By: #### P SAS1 ####[facility] LABCLIA [id number] [address] OF [facility] 09-05-2024 [facility] -- JOSÉ MIGUEL YOUNG SR. ([id number]) 1965 M Date Time Provider Department 09/05/24 PIERCE WELLS [facility] During your visit today, we recorded [...] Status:Closed by ARMANI LEONG on 09/05/24 Normal [facility] XR Knee - left 4 Viewson IMPRESSION: Marked degenerative changes, with loose bodies and effusion, and abnormality of bilateral patellofemoral and knee joints. No acute fracture. No dislocation. Transportation Modeler: PSCB Transcribe Date/Time: Apr 17 2021 10:31A Dictated by : JOSÉ MIGUEL BUTLER MD This examination was interpreted and the report reviewed and electronically signed by: JOSÉ MIGUEL BUTLER MD on Apr 17 2021 10:48AM [facility] DIVISION OF RADIOLOGY * * *Final Report* [...] effusion. DIVISION OF RADIOLOGY Provider, Khanh christianson Fordyce - 04/17/2021 * * *Final Report* * [...] knee joints. No acute fracture. No dislocation. Transportation Modeler: PSCB Transcribe Date/Time: Apr 17 2021 10:31A Dictated by : JOSÉ MIGUEL BUTLER MD This examination was interpreted and the report reviewed and electronically signed by: JOSÉ MIGUEL BUTLER MD on Apr 17 2021 10:48AM EST [facility] Radiology Study observation (narrative) [facility] XR Knee - left 4 ViewsOrdere d By: Ccf Provider on 04-17-2021 [facility] Vital Signs Date Time Vital Sign Value Performing Clinician Facility 07-23-2025 10:52-0400 Diastolic blood pressure 88 mm[Hg] Armani Leong APRN.CNP Work Phone: [facility] 07-23-2025 10:52-0400 Systolic blood pressure 140 mm[Hg] Armani Leong APRN.CNP Work Phone: [facility] 07-23-2025 10:39-0400 Body mass index (BMI) [Ratio] 50.27 kg/m2 Armani Salo MARRIAGE AND FAMILY TEACHER.KICKBOXING INSTRUCTOR Work Phone: [facility] 07-23-2025 10:39-0400 Body weight 147.78 kg Armani Salo MARRIAGE AND FAMILY TEACHER.KICKBOXING INSTRUCTOR Work Phone: [facility] 07-23-2025 10:39-0400 Heart rate 69 /min Armani Salo MARRIAGE AND FAMILY TEACHER.KICKBOXING INSTRUCTOR Work Phone: [facility] 07-23-2025 10:39-0400 Respiratory rate 18 /min Armani Salo MARRIAGE AND FAMILY TEACHER.KICKBOXING INSTRUCTOR Work Phone: [facility] 07-23-2025 10:39-0400 SaO2% (BldA) [Mass fraction] 95 % Armani Salo MARRIAGE AND FAMILY TEACHER.KICKBOXING INSTRUCTOR Work Phone: [facility] 06-25-2025 13:00-0400 Body height 170.[address] Pierce Wells MD Work Phone: [facility] 06-25-2025 13:00-0400 Body mass index (BMI) [Ratio] 49.9 kg/m2 Dr. Pierce Wells MD Work Phone: [facility] 06-25-2025 13:00-0400 Body weight 144.[address] Pierce Wells MD Work Phone: [facility] 06-25-2025 13:00-0400 Diastolic blood pressure 85 mm[Hg] Dr. Pierce Wells MD Work Phone: [facility] 06-25-2025 13:00-0400 Heart rate 69 /min Dr. Pierce Wells MD Work Phone: [facility] 06-25-2025 13:00-0400 Respiratory rate 18 /min Dr. Pierce Wells MD Work Phone: [facility] 06-25-2025 13:00-0400 Systolic blood pressure 124 mm[Hg] Dr. Pierce Wells MD Work Phone: [facility] 06-04-2025 08:37-0400 Body mass index (BMI) [Ratio] 50 kg/m2 Armani Salo MARRIAGE AND FAMILY TEACHER.KICKBOXING INSTRUCTOR Work Phone: [facility] 06-04-2025 08:37-0400 Body weight 146.97 kg Armani Salo MARRIAGE AND FAMILY TEACHER.KICKBOXING INSTRUCTOR Work Phone: [facility] 06-04-2025 08:37-0400 Diastolic blood pressure 78 mm[Hg] Armani Salo MARRIAGE AND FAMILY TEACHER.KICKBOXING INSTRUCTOR Work Phone: [facility] 06-04-2025 08:37-0400 Heart rate 62 /min Armani Salo MARRIAGE AND FAMILY TEACHER.KICKBOXING INSTRUCTOR Work Phone: [facility] 06-04-2025 08:37-0400 Respiratory rate 18 /min Armani Salo MARRIAGE AND FAMILY TEACHER.KICKBOXING INSTRUCTOR Work Phone: [facility] 06-04-2025 08:37-0400 SaO2% (BldA) [Mass fraction] 95 % Armani Salo MARRIAGE AND FAMILY TEACHER.KICKBOXING INSTRUCTOR Work Phone: [facility] 06-04-2025 08:37-0400 Systolic blood pressure 130 mm[Hg] Armani Salo MARRIAGE AND FAMILY TEACHER.KICKBOXING INSTRUCTOR Work Phone: [facility] 05-16-2025 11:31-0400 Body height 170.[address] Pierce Wells MD Work Phone: [facility] 05-16-2025 11:31-0400 Body weight 145.[address] Pierce Wells MD Work Phone: [facility] 05-15-2025 08:43-0400 Body mass index (BMI) [Ratio] 50.1 kg/m2 Dr. Pierce Wells MD Work Phone: [facility] 05-09-2025 16:07-0400 Diastolic blood pressure 83 mm[Hg] Dr. Pierce Wells MD Work Phone: [facility] 05-09-2025 16:07-0400 Systolic blood pressure 154 mm[Hg] Dr. Pierce Wells MD Work Phone: [facility] 05-09-2025 15:54-0400 Body height 170.[address] Pierce Wells MD Work Phone: [facility] 05-09-2025 15:54-0400 Body mass index (BMI) [Ratio] 50.1 kg/m2 Dr. Pierce Wells MD Work Phone: [facility] 05-09-2025 15:54-0400 Body weight 145.[address] Pierce Wells MD Work Phone: [facility] 05-09-2025 15:54-0400 Heart rate 73 /min Dr. Pierce Wells MD Work Phone: [facility] 05-09-2025 15:54-0400 Respiratory rate 18 /min Dr. Pierce Wells MD Work Phone: [facility] 05-05-2025 08:31-0400 Body mass index (BMI) [Ratio] 49.36 kg/m2 Pierce Wells MD Work Phone: [facility] 05-05-2025 08:31-0400 Body weight 145.1 kg Pierce Wells MD Work Phone: [facility] 05-05-2025 08:31-0400 Diastolic blood pressure 80 mm[Hg] Pierce Wells MD Work Phone: [facility] 05-05-2025 08:31-0400 Heart rate 78 /min Pierce Wells MD Work Phone: [facility] 05-05-2025 08:31-0400 Respiratory rate 18 /min Pierce Wells MD Work Phone: [facility] 05-05-2025 08:31-0400 SaO2% (BldA) [Mass fraction] 95 % Pierce Wells MD Work Phone: [facility] 05-05-2025 08:31-0400 Systolic blood pressure 128 mm[Hg] Pierce Wells MD Work Phone: [facility] 03-25-2025 22:26-0400 Body temperature 97.6 [degF] Dr. Pierce Wells MD Work Phone: 2(931)747-014191 [place] [address] 03-25-2025 22:26-0400 Diastolic blood pressure 64 mm[Hg] Dr. Pierce Wells MD Work Phone: 5(318)618-208691 [place] [address] 03-25-2025 22:26-0400 Heart rate 95 /min Dr. Pierce Wells MD Work Phone: 0(114)611-746291 [place] [address] 03-25-2025 22:26-0400 Respiratory rate 19 /min Dr. Pierce Wells MD Work Phone: 1(488)571-608791 [place] [address] 03-25-2025 22:26-0400 SaO2% (BldA) [Mass fraction] 94 % Dr. Pierce Wells MD Work Phone: 4(546)666-941591 [place] [address] 03-25-2025 22:26-0400 Systolic blood pressure 102 mm[Hg] Dr. Pierce Wells MD Work Phone: 0(275)548-747091 [place] [address] 03-25-2025 17:38-0400 Body mass index (BMI) [Ratio] 51 kg/m2 Dr. Pierce Wells MD Work Phone: 0(529)468-958291 [place] [address] 03-25-2025 17:38-0400 Body weight [address] Pierce Wells MD Work Phone: 3(090)144-505791 [place] [address] 03-25-2025 16:13-0400 Body height 170.[address] Pierce Wells MD Work Phone: 6(793)032-377791 [place] [address] 03-22-2025 15:32-0400 Body mass index (BMI) [Ratio] 51.3 kg/m2 Dr. Pierce Wells MD Work Phone: 6(053)673-286191 [place] [address] 03-22-2025 15:32-0400 Body weight 148.[address] Pierce Wells MD Work Phone: 6(479)147-535991 [place] [address] 03-22-2025 14:00-0400 Body temperature 98.6 [degF] Dr. Pierce Wells MD Work Phone: 8(372)425-791291 [place] [address] 03-22-2025 14:00-0400 Diastolic blood pressure 52 mm[Hg] Dr. Pierce Wells MD Work Phone: 8(216)098-722091 [place] [address] 03-22-2025 14:00-0400 Heart rate 87 /min Dr. Pierce Wells MD Work Phone: 3(749)970-717791 [place] [address] 03-22-2025 14:00-0400 Inhaled oxygen flow rate 2 L/min Dr. Pierce Wells MD Work Phone: 0(793)917-857491 [place] [address] 03-22-2025 14:00-0400 Respiratory rate 16 /min Dr. Pierce Wells MD Work Phone: 2(002)769-313091 [place] [address] 03-22-2025 14:00-0400 SaO2% (BldA) [Mass fraction] 95 % Dr. Pierce Wells MD Work Phone: 6(912)150-847591 [place] [address] 03-22-2025 14:00-0400 Systolic blood pressure 134 mm[Hg] Dr. Pierce Wells MD Work Phone: 9(834)200-156891 [place] [address] 03-19-2025 10:55-0400 Body height 170.[address] Pierce Wells MD Work Phone: 3(861)772-822291 [place] [address] 03-18-2025 21:15-0400 Body temperature 98.2 [degF] Dr. Pierce Wells MD Work Phone: 5(313)480-425891 [place] [address] 03-18-2025 21:15-0400 Diastolic blood pressure 105 mm[Hg] Dr. Pierce Wells MD Work Phone: 0(230)650-658891 [place] [address] 03-18-2025 21:15-0400 Heart rate 88 /min Dr. Pierce Wells MD Work Phone: 6(707)555-205491 [place] [address] 03-18-2025 21:15-0400 Respiratory rate 24 /min Dr. Pierce Wells MD Work Phone: 5(240)375-400391 [place] [address] 03-18-2025 21:15-0400 SaO2% (BldA) [Mass fraction] 96 % Dr. Pierce Wells MD Work Phone: 5(810)942-887691 [place] [address] 03-18-2025 21:15-0400 Systolic blood pressure 170 mm[Hg] Dr. Pierce Wells MD Work Phone: 6(419)360-571091 [place] [address] 03-18-2025 21:00-0400 Inhaled oxygen flow rate 3 L/min Dr. Pierce Wells MD Work Phone: 4(586)301-307191 [place] [address] 03-18-2025 19:19-0400 Body height 170.[address] Pierce Wells MD Work Phone: 7(838)846-074891 [place] [address] 03-18-2025 19:19-0400 Body mass index (BMI) [Ratio] 55.6 kg/m2 Dr. Pierce Wells MD Work Phone: 3(139)027-659591 [place] [address] 03-18-2025 19:19-0400 Body weight 161.[address] Pierce Wells MD Work Phone: 2(364)943-910491 [place] [address] 03-05-2025 14:28-0400 Body temperature 98.1 [degF] Dr. Pierce Wells MD Work Phone: 4(662)261-111691 [place] [address] 03-05-2025 14:28-0400 Diastolic blood pressure 98 mm[Hg] Dr. Pierce Wells MD Work Phone: 3(436)669-337191 [place] [address] 03-05-2025 14:28-0400 Heart rate 74 /min Dr. Pierce Wells MD Work Phone: 9(812)401-576591 [place] [address] 03-05-2025 14:28-0400 Respiratory rate 14 /min Dr. Pierce Wells MD Work Phone: 8(009)919-818391 [place] [address] 03-05-2025 14:28-0400 SaO2% (BldA) [Mass fraction] 94 % Dr. Pierce Wells MD Work Phone: 8(759)614-309691 [place] [address] 03-05-2025 14:28-0400 Systolic blood pressure 141 mm[Hg] Dr. Pierce Wells MD Work Phone: 1(828)317-031791 [place] [address] 03-05-2025 05:28-0400 Body mass index (BMI) [Ratio] 54.5 kg/m2 Dr. Pierce Wells MD Work Phone: 7(049)246-517191 [place] [address] 03-05-2025 05:28-0400 Body weight [address] Pierce Wells MD Work Phone: [facility] 03-05-2025 03:10-0400 Inhaled oxygen flow rate 2 L/min Dr. Pierce Wells MD Work Phone: [facility] 03-03-2025 15:04-0400 Body height 170.[address] Pierce Wells MD Work Phone: [facility] 12-29-2024 16:05-0500 Body mass index (BMI) [Ratio] 54.87 kg/m2 Pierce Wells MD Work Phone: [facility] 12-29-2024 16:05-0500 Body temperature 98.01 [degF] Pierce Wells MD Work Phone: [facility] 12-29-2024 16:05-0500 Body weight 161.3 kg Pierce Wells MD Work Phone: [facility] 12-29-2024 16:05-0500 Diastolic blood pressure 92 mm[Hg] Pierce Wells MD Work Phone: [facility] 12-29-2024 16:05-0500 Heart rate 82 /min Pierce Wells MD Work Phone: [facility] 12-29-2024 16:05-0500 Respiratory rate 24 /min Pierce Wells MD Work Phone: [facility] 12-29-2024 16:05-0500 SaO2% (BldA) [Mass fraction] 94 % Pierce Wells MD Work Phone: [facility] 12-29-2024 16:05-0500 Systolic blood pressure 138 mm[Hg] Pierce Wells MD Work Phone: [facility] 09-12-2024 13:10-0500 Diastolic blood pressure 82 mm[Hg] Armani Leong APRN.CNP Work Phone: [facility] 09-12-2024 13:10-0500 Systolic blood pressure 136 mm[Hg] Armani Salo MARRIAGE AND FAMILY TEACHER.KICKBOXING INSTRUCTOR Work Phone: [facility] 09-12-2024 12:52-0500 Body mass index (BMI) [Ratio] 54.78 kg/m2 Armani Leong MARRIAGE AND FAMILY TEACHER.KICKBOXING INSTRUCTOR Work Phone: [facility] 09-12-2024 12:52-0500 Body weight 161.03 kg Armani Leong MARRIAGE AND FAMILY TEACHER.KICKBOXING INSTRUCTOR Work Phone: [facility] 09-12-2024 12:52-0500 Heart rate 68 /min Armani Leong MARRIAGE AND FAMILY TEACHER.KICKBOXING INSTRUCTOR Work Phone: [facility] 09-12-2024 12:52-0500 Respiratory rate 16 /min Armani Leong MARRIAGE AND FAMILY TEACHER.KICKBOXING INSTRUCTOR Work Phone: [facility] 09-12-2024 12:52-0500 SaO2% (BldA) [Mass fraction] 97 % Armani Leong MARRIAGE AND FAMILY TEACHER.KICKBOXING INSTRUCTOR Work Phone: [facility] 07-23-2023 13:47-0400 Diastolic blood pressure 78 mm[Hg] Armani Salo MARRIAGE AND FAMILY TEACHER.KICKBOXING INSTRUCTOR Work Phone: [facility] 07-23-2023 13:47-0400 Heart rate 69 /min Armani Leong MARRIAGE AND FAMILY TEACHER.KICKBOXING INSTRUCTOR Work Phone: [facility] 07-23-2023 13:47-0400 Systolic blood pressure 168 mm[Hg] Armani Salo MARRIAGE AND FAMILY TEACHER.KICKBOXING INSTRUCTOR Work Phone: [facility] 07-23-2023 13:33-0400 Body height 171.5 cm Armani Leong MARRIAGE AND FAMILY TEACHER.KICKBOXING INSTRUCTOR Work Phone: [facility] 07-23-2023 13:33-0400 Body temperature 98.8 [degF] Armani Leong MARRIAGE AND FAMILY TEACHER.KICKBOXING INSTRUCTOR Work Phone: [facility] 07-23-2023 13:33-0400 Body weight 159.94 kg Armani Leong MARRIAGE AND FAMILY TEACHER.KICKBOXING INSTRUCTOR Work Phone: [facility] 07-23-2023 13:33-0400 Respiratory rate 20 /min Armani Leong APRN.CNP Work Phone: [facility] 07-23-2023 13:33-0400 SaO2% (BldA) [Mass fraction] 97 % Armani Leong APRN.CNP Work Phone: [facility] Encounters Encounter Date Encounter Type Care Provider Facility Start: 08-10-2025 ambulatory [facility] Facility:[facility] Start: 07-31-2025 End: 07-31-2025 ambulatory [facility] Facility:[facility] Start: 07-23-2025 End: 07-25-2025 Telephone encounter Muna RODRIGUEZ Navigation Start: 07-23-2025 End: 07-23-2025 Subsequent hospital visit by physician Manasa [facility] Work Phone: Radiology Comment on above: Primary osteoarthrit is of both knees [M17.0] Start: 07-23-2025 End: 07-23-2025 Office outpatient visit 25 minutes Armani Leong APRN.CNP Work Phone: [facility] Comment on above: Chronic bilateral lo w back pain without sciatica (Primary Dx); Reactive depression; Essential hypertension; Primary osteoarthritis of both knees; Food insecurity Start: 07-23-2025 End: 07-23-2025 ambulatory [facility] Facility:[facility] Start: 07-18-2025 End: 07-18-2025 [facility] Comment on above: Chronic right-sided low back pain without sciatica (Primary Dx) Start: 07-13-2025 End: 07-13-2025 ambulatory Armani Leong APRN.CNP Work Phone: [facility] Comment on above: Disability Paperwork Start: 07-13-2025 End: 07-13-2025 E-mail encounter from caregiver Armani Leong APRN.CNP Work Phone: Family [facility] Start: 07-10-2025 End: 07-13-2025 Telephone encounter Pierce Wells MD Work Phone: [facility] Comment on above: Forms (Disability) Start: 06-25-2025 End: 06-25-2025 Patient encounter procedure José Miguel SLADE -[facility] Work Phone: Start: 06-25-2025 End: 06-25-[address] Pierce Wells MD Work Phone: [facility] Start: 06-14-2025 End: 06-18-2025 ambulatory ARMANI LEONG Facility:[facility] Comment on above: Sleep study Start: 06-04-2025 End: 06-04-[address] Dimitris Lucio MD -[facility] Work Phone: Start: 06-04-2025 End: 06-04-2025 Subsequent hospital visit by physician Xr [facility] Work Phone: Radiology Comment on above: Chronic right-sided low back pain without sciatica [M54.50, G89.29] Start: 06-04-2025 End: 06-04-2025 Office outpatient visit 25 minutes Armani Leong MARRIAGE AND FAMILY TEACHER.KICKBOXING INSTRUCTOR Work Phone: [facility] Comment on above: Heart failure, unspe cified HF chronicity, unspecified heart failure type (HCC) (Primary Dx); Atrial fibrillation, unspecified type (HCC); Essential hypertension; Benign prostatic hyperplasia with nocturia; Chronic right-sided low back pain without sciatica; Reactive depression Start: 06-04-2025 End: 06-04-[address] Pierce Wells MD Work Phone: [facility] Start: 05-29-2025 End: 06-08-2025 Refill Pierce Wells MD Work Phone: [facility] Comment on above: Refill Request Start: 05-23-2025 End: 05-23-[address] Dimitris Lucio MD -[facility] Work Phone: Start: 05-23-2025 End: 05-23-[address] Pierce Wells MD Work Phone: -[facility] Start: 05-21-2025 End: 05-21-2025 Telephone encounter Pierce Wells MD Work Phone: [facility] Comment on above: Medication Question Start: 05-16-2025 ambulatory Bay Phillips Facility:[facility] Start: 05-16-2025 Non-patient / Non-visit Dr. Bay marrero DO -[facility] Start: 05-16-2025 End: 05-16-2025 Admission to same day surgery center Dr. Dimitris Lucio MD -Process Architect/Special Procedures Work Phone: Start: 05-16-2025 End: 05-16-[address] Pierce Wells MD Work Phone: -Process Architect/Special Procedures Start: 05-12-2025 End: 05-12-2025 ambulatory Jennifer Timmons RN NURSE ASSESSMENT EXPERT Comment on above: Watery Eyes Both Eye s Start: 05-09-2025 End: 05-09-[address] Dimitris Lucio MD -[facility] Work Phone: Start: 05-09-2025 End: 05-09-[address] Pierce Wells MD Work Phone: -[facility] Start: 05-08-2025 End: 07-08-2025 Follow-up encounter Pierce Wells MD Work Phone: [facility] [place] Start: 05-05-2025 End: 05-05-2025 Office outpatient visit 25 minutes Pierce Wells MD Work Phone: [facility] [place] Comment on above: Heart failure, unspe cified HF chronicity, unspecified heart failure type (HCC) (Primary Dx); Reactive depression; Essential hypertension; Atrial fibrillation, unspecified type (HCC); Chronic bilateral low back pain without sciatica Start: 05-05-2025 End: 05-05-2025 ambulatory PIERCE WELLS Facility:[facility] Start: 04-18-2025 End: 04-24-2025 Telephone encounter Pierce Wells MD Work Phone: [facility] [place] Comment on above: Patient Update Start: 03-30-2025 End: 03-30-2025 ambulatory PIERCE WELLS Facility:[facility] Start: 03-27-2025 End: 04-03-2025 Telephone encounter [facility] Comment on above: Forms (FMLA) Start: 03-25-2025 End: 03-25-2025 Emergency department patient visit Dr. Pierce Wells MD Work Phone: -Emergency Department Work Phone: Start: 03-25-2025 End: 03-25-2025 ambulatory Malissa Amaya RN NURSE ASSESSMENT EXPERT Comment on above: Diarrhea Start: 03-23-2025 End: 03-26-2025 Patient Outreach Ruby Lee MA [facility] Comment on above: Transition Of Care Start: 03-22-2025 Non-patient / Non-visit Dr. Zoë Khan MD [facility] Work Phone: Start: 03-22-2025 End: 03-23-2025 Telephone encounter Pierce Wells MD Work Phone: [facility] Comment on above: Patient Update Start: 03-21-2025 Non-patient / Non-visit Dr. Malcom Mejia [facility] Work Phone: Start: 03-20-2025 Non-patient / Non-visit [facility]. Malcom Mej[facility] Work Phone: Start: 03-19-2025 ambulatory Thierno Geiger ty:[facility] Start: 03-19-2025 End: 03-22-2025 Evaluation and management of inpatient Dr. Zoë Khan MD -[facility] Work Phone: Start: 03-19-2025 Non-patient / Non-visit Dr. Malcom Mejia [facility] Work Phone: Start: 03-18-2025 ambulatory Thierno Geiger ty:[facility] Start: 03-18-2025 Evaluation and manag ement of inpatient Dr. Thierno Campos [facility] Work Phone: Start: 03-18-2025 Non-patient / Non-visit Dr. Yvan Campos [facility] Work Phone: Start: 03-18-[address] Pierce Wells MD Work Phone: [facility] Work Phone: Start: 03-05-2025 Non-patient / Non-visit Dr. Valente [facility] Work Phone: Start: 03-04-2025 Non-patient / Non-visit Dr. Yulissa Florian [facility] Work Phone: Start: 03-03-2025 Non-patient / Non-visit Dr. Yulissa Florian [facility] Work Phone: Start: 03-03-2025 ambulatory Sagrario [facility] Facility:[facility] Start: 03-03-2025 Non-patient / Non-visit Dr. Sagrario singh MD -[facility] Start: 03-02-2025 ambulatory Thierno Campos Facili ty:[facility] Start: 03-02-2025 End: 03-05-2025 Evaluation and management of inpatient Dr. Jostin Arriaza [facility] Work Phone: Start: 03-02-2025 End: 03-02-2025 ambulatory PIERCE WELLS Facility:[facility] Start: 01-01-2025 End: 01-01-2025 Telephone encounter Pierce Wells MD Work Phone: [facility] Comment on above: Letter Start: 12-29-2024 End: 12-29-2024 Patient encounter procedure Pierce Wells MD Work Phone: [facility] Comment on above: Acute cough (Primary Dx); Influenza Start: 12-29-2024 End: 12-29-2024 ambulatory PIERCE WELLS Facility:[facility] Start: 12-15-2024 End: 12-15-2024 Telephone encounter Pierce Wells MD Work Phone: [facility] [place] Comment on above: Medication Problem Start: 09-12-2024 Encounter for genera l adult medical examination without abnormal findings PIERCE WELLS [facility] Start: 09-12-2024 End: 09-12-2024 Patient encounter status Armani Leong MARRIAGE AND FAMILY TEACHER.KICKBOXING INSTRUCTOR Work Phone: [facility] Work Phone: Start: 09-12-2024 End: 09-12-2024 Periodic preventive med est patient 40-64yrs Armani Leong MARRIAGE AND FAMILY TEACHER.KICKBOXING INSTRUCTOR Work Phone: [facility] [place] Comment on above: Wellness examination (Primary Dx); Essential hypertension; Reactive depression; Benign prostatic hyperplasia with nocturia; Gastroesophageal reflux disease without esophagitis; Encounter for immunization; Screening for colon cancer Start: 09-12-2024 End: 09-12-2024 ambulatory PIERCE WELLS Facility:[facility] Start: 09-05-2024 End: 09-05-2024 Telephone encounter Pierce Wells MD Work Phone: [facility] [place] Comment on above: requesting medicatio n that is Refill Request Start: 08-11-2024 End: 08-11-2024 Refill Pierce Wells MD Work Phone: [address] [place] [address] Comment on above: Refill Request Start: 06-10-2024 Refill Armani TIERNEY RN.KICKBOXING INSTRUCTOR Work Phone: [facility] [place] Comment on above: Refill Request Start: 05-30-2024 Refill Pierce cole MD Work Phone: [facility] [place] Comment on above: Refill Request Start: 04-22-2024 Refill Armani TIERNEY RN.KICKBOXING INSTRUCTOR Work Phone: [facility] [place] Comment on above: Refill Request Start: 04-18-2024 Refill Armani TIERNEY RN.KICKBOXING INSTRUCTOR Work Phone: [facility] [place] Comment on above: Refill Request Start: 04-09-2024 Refill Armani TIERNEY RN.[facility] Work Phone: [facility] Comment on above: Refill Request Start: 03-14-2024 Refill Armani TIERNEY RN.[facility] Work Phone: [facility] Comment on above: Refill Request Start: 03-08-2024 Refill Pierce cole MD Work Phone: [facility] [place] Comment on above: Refill Request Start: 02-09-2024 Refill Pierce cole MD Work Phone: [facility] [place] Comment on above: Refill Request Start: 07-23-2023 End: 07-23-2023 Office outpatient visit 40 minutes Armani Leong APRN.[facility] Work Phone: [facility] Comment on above: Essential hypertensi on (Primary Dx); Reactive depression; Screening for colon cancer; Elevated glucose; Benign prostatic hyperplasia with nocturia; Strain of left shoulder, initial encounter; Musculoskeletal disorder involving upper trapezius muscle; Gastroesophageal reflux disease without esophagitis Start: 05-26-2023 Refill Pierce cole MD Work Phone: [facility] Comment on above: Refill Request Start: 12-12-2022 Refill Pierce cole MD Work Phone: [facility] Comment on above: Refill Request Start: 07-08-2022 Telephone encounter Yaquelin david APRN.KICKBOXING INSTRUCTOR Work Phone: [facility] Comment on above: Results (Labs ) Start: 07-04-2022 ambulatory Renuka Carr RN NURSE ASSESSMENT EXPERT Comment on above: immunization reactio n Start: 06-12-2022 Telephone encounter Yaquelin david APRN.MELIA Work Phone: [facility] Comment on above: Orders (Needs Lab Or ders) Start: 05-23-2022 Refill Amanda Barrera Work Phone: [facility] Comment on above: Refill Request Start: 05-04-2022 Refill Pierce cole MD Work Phone: [facility] [place] Comment on above: Refill Request Start: 02-01-2022 Refill Armani TIERNEY RN.KICKBOXING INSTRUCTOR Work Phone: [facility] [place] Comment on above: Refill Request Start: 04-17-2021 End: 04-17-2021 Subsequent hospital visit by physician Xr [facility] [place] Work Phone: Radiology Comment on above: [...] o2 satur ation only direct silvia Dr. Pierce Wells MD Work Phone: Start: 03-02-2025 Measurement [...] or Pulmonary Embolism (PE)CRITICAL VALUE CALLED TO [id number]/25/25 [facility] [place].RESULTS READ BACK BY SAME. Start: 03-02-[address] Pierce Wells MD Work Phone: Start: 09-12-2024 Lipid 1996 panel - S deepak or Plasma Pierce Wells MD Work Phone: Start: 07-03-2022 Adult depression scr eening assessment Renuka Carr RN Start: 07-03-2022 Lipid 1996 panel - S deepak or Plasma Armani Leong APRN.K[employer]BOXING INSTRUCTOR Work Phone: Start: 04-17-2021 Radiologic exam knee complete 4/more views Amanda Goff PA-C Work Phone: Start: 07-22-2018 Adult depression scr eening assessment Armani Leong MARRIAGE AND FAMILY TEACHER.KICKBOXING INSTRUCTOR Work Phone: Plan of Treatment Date Care Activity Detail Author Start: 07-03-2032 Urine microalbumin profile [facility] Start: 09-12-2029 Lipid panel Lipid Screening [facility] Start: 09-12-2029 Prostate specific antigen measurement Prostate Cancer Screening Discussion [facility] Start: 05-05-2028 Diabetes Screening Diabetes Screening [facility] Start: 03-30-2028 Diabetes Screening Diabetes Screening [facility] Start: 10-23-2027 Screening for malignant neoplasm of colon [facility] Start: 09-12-2027 Diabetes Screening Diabetes Screening [facility] Start: 07-03-2027 Lipid 1996 panel - Serum or Plasma Lipid Screening [facility] Start: 07-03-2027 Lipid panel Lipid Screening [facility] Start: 07-03-2027 LIPID SCREEN LIPID SCREEN [facility] Start: 07-03-2027 PROSTATE CANCER SCREENING DISCUSSION PROSTATE CANCER SCREENING DISCUSSION [facility] Start: 07-03-2027 Prostate specific antigen measurement Prostate Cancer Screening Discussion [facility] Start: 07-23-2026 Annual PCP Team Chronic Disease Visit Annual PCP Team Chronic Disease Visit [facility] Start: 06-04-2026 Annual PCP Team Chronic Disease Visit Annual PCP Team Chronic Disease Visit [facility] Start: 05-05-2026 Annual PCP Team Chronic Disease Visit Annual PCP Team Chronic Disease Visit [facility] Start: 03-30-2026 Annual PCP Team Chronic Disease Visit Annual PCP Team Chronic Disease Visit [facility] Start: 03-30-2026 BP Controlled (<130/80) BP Controlled (<130/80) [facility] Start: 12-29-2025 Annual PCP Team Chronic Disease Visit Annual PCP Team Chronic Disease Visit [facility] Start: 10-29-2025 End: 10-29-2025 Patient encounter procedure 10/29/2025 11:00 AM EST Office Visit Family [facility] [address] [place] [address] Armani Leong APRN.KICKBOXING INSTRUCTOR [address] [place] [address] 3 month follow up [facility] [place] Comment on above: 3 month follow up Start: 09-12-2025 Annual PCP Team Chronic Disease Visit Annual PCP Team Chronic Disease Visit [facility] Start: 09-04-2025 End: 09-04-2025 Patient encounter procedure 09/04/2025 9:05 PM EDT Office Visit Neurology [address] [place] [address] [facility] Comment on above: [facility] Start: 08-27-2025 End: 08-27-2025 ambulatory 08/27/2025 9:30 AM EDT OT/PT/Speech Visit [facility] [address] [place] [address] Jennifer Eubanks, PT M54.50,G89.29 (ICD-10-CM) - Chronic right-sided low back pain without sciatica [facility] Comment on above: M54.50,G89.29 (ICD-10-CM) - Chronic righ t-sided low back pain without sciatica Start: 08-20-2025 End: 08-20-2025 ambulatory 08/20/2025 9:30 AM EDT OT/PT/Speech Visit [facility] [address] [place] [address] Jennifer Eubanks, PT M54.50,G89.29 (ICD-10-CM) - Chronic right-sided low back pain without sciatica [facility] Comment on above: M54.50,G89.29 (ICD-10-CM) - Chronic righ t-sided low back pain without sciatica Start: 08-16-2025 End: 08-16-2025 Patient encounter procedure 08/16/2025 11:00 AM EDT Office Visit [facility] [address] [place] [address] Cherri Cerda APRN.[facility] [address] [place] [address] 2 month follow up [facility] Comment on above: 2 month follow up Start: 08-13-2025 End: 08-13-2025 ambulatory 08/13/2025 9:30 AM EDT OT/PT/Speech Visit [facility] [address] [place] [address] Oumou Means, JOB HONER [address] [place] [address] M54.50,G89.29 (ICD-10-CM) - Chronic right-sided low back pain without sciatica [facility] Comment on above: M54.50,G89.29 (ICD-10-CM) - Chronic righ t-sided low back pain without sciatica Start: 08-06-2025 End: 08-06-2025 ambulatory 08/06/2025 4:30 PM EDT OT/PT/Speech Visit [facility] [address] [place] [address] Oumou Means, JOB HONER [address] [place] [address] M54.50,G89.29 (ICD-10-CM) - Chronic right-sided low back pain without sciatica [facility] Comment on above: M54.50,G89.29 (ICD-10-CM) - Chronic righ t-sided low back pain without sciatica Start: 08-06-2025 End: 08-06-2025 Patient encounter procedure 08/06/2025 2:45 PM EDT Office Visit Orthopaedics [address] [place] [address] Ck Chang MD [address] [place] [address] Primary osteoarthritis of both knees [M17.0] Orthopaedics Comment on above: Primary osteoarthritis of both knees [M1 7.0] Start: 07-31-2025 End: 07-31-2025 ambulatory 07/31/2025 11:15 AM EDT OT/PT/Speech Visit [facility] [address] [place] [address] Jennifer Eubanks, PT M54.50,G89.29 (ICD-10-CM) - Chronic right-sided low back pain without sciatica [facility] Comment on above: M54.50,G89.29 (ICD-10-CM) - Chronic righ t-sided low back pain without sciatica Start: 07-25-2025 End: 07-25-2025 ambulatory 07/25/2025 6:00 PM EDT OT/PT/Speech Visit [facility] [address] [place] [address] Jennifer Eubanks, PT M54.50,G89.29 (ICD-10-CM) - Chronic right-sided low back pain without sciatica [facility] Comment on above: M54.50,G89.29 (ICD-10-CM) - Chronic righ t-sided low back pain without sciatica Start: 07-23-2025 End: 07-23-2025 Patient encounter procedure 07/23/2025 10:40 AM EDT Office Visit [facility] [place] [address] [place] [address] Armani Leong APRN.KICKBOXING INSTRUCTOR [address] [place] [address] 6 week f/u [facility] [place] Comment on above: 6 week f/u Start: 07-18-2025 End: 07-18-2025 ambulatory 07/18/2025 11:15 AM EDT OT/PT/Speech Visit [facility] [address] [place] [address] Jennifer Eubanks, PT Chronic right-sided low back pain without sciatica [facility] Comment on above: Chronic right-sided low back pain withou t sciatica Start: 07-11-2025 End: 07-11-2025 ambulatory 07/11/2025 8:15 AM EDT OT/PT/Speech Visit [facility] [address] [place] [address] Jennifer Eubanks, PT Chronic right-sided low back pain without sciatica [facility] Comment on above: Chronic right-sided low back pain withou t sciatica Start: 07-09-2025 Influenza vaccination [facility] Start: 07-03-2025 DIABETES SCREEN DIABETES SCREEN [facility] Start: 07-03-2025 Diabetes Screening Diabetes Screening [facility] Start: 06-25-2025 Evaluation of diagnostic study results [facility] Start: 06-20-2025 End: 06-20-2025 ambulatory 06/20/2025 7:30 AM EDT OT/PT/Speech Visit [facility] [address] [place] [address] Julio César Salomon, PT Chronic right-sided low back pain without sciatica [M54.50, G89.29] [facility] Comment on above: Chronic right-sided low back pain withou t sciatica [M54.50, G89.29] Start: 06-14-2025 End: 06-14-2025 Patient encounter procedure 06/14/2025 9:00 AM EDT Office Visit [facility] [address] [facility] [place] [address] Cherri Cerda APRN.KICKBOXING INSTRUCTOR [address] [facility] [place] [address] Dx: Chronic right-sided low back pain without sciatica [M54.50, G89.29] [facility] Comment on above: Dx: Chronic right-sided low back pain wi thout sciatica [M54.50, G89.29] Start: 06-04-2025 Evaluation of diagnostic study results [facility] Start: 06-04-2025 End: 06-04-2025 Patient encounter procedure 06/04/2025 8:40 AM EDT Office Visit [facility] [place] [address] [place] [address] Armani Leong, MARRIAGE AND FAMILY TEACHER.KICKBOXING INSTRUCTOR [address] [facility] [place] [address] Follow up [facility] [place] Comment on above: Follow up Start: 05-23-2025 Evaluation of diagnostic study results [facility] Start: 05-16-2025 Patient discharge [facility] Start: 05-09-2025 Evaluation of diagnostic study results [facility] Start: 05-05-2025 End: 05-05-2025 Patient encounter procedure 05/05/2025 9:00 AM EDT Office Visit [facility] [place] [address] [place] [address] Pierce Wells MD [address] [facility] [place] [address] 1 month follow up [facility] [place] Comment on above: 1 month follow up Start: 03-30-2025 End: 03-30-2025 Patient encounter procedure 03/30/2025 2:20 PM EDT Office Visit [facility] [place] [address] [place] [address] Pierce Wells MD [address] [place] [address] [facility] follow up 03/02-03/05 shortness of breath [facility] [place] Comment on above: [facility] follow up 03/02-03/05 shortness of b reath Start: 03-25-2025 [facility] Start: 03-25-2025 Enteric precautions [facility] Start: 03-25-2025 Enteric Bacteriology Enteric Bacteriology [facility] Start: 03-25-2025 Ova and Parasites Ova and Parasites [facility] Start: 03-22-2025 Patient discharge [facility] Start: 03-21-2025 [facility] Start: 03-20-2025 [facility] Start: 03-19-2025 Serum inorganic phosphate measurement [facility] Start: 03-19-2025 Admission procedure [facility] Start: 03-18-2025 Application of intermittent pneumatic compression device [facility] Start: 03-18-2025 Following clinical pathway protocol [facility] Start: 03-18-2025 End: 03-18-2025 [facility] Start: 03-18-2025 Catheterization of vein [facility] Start: 03-18-2025 Oxygen therapy [facility] Start: 03-18-2025 Incentive spirometry [facility] Start: 03-18-2025 Provision of activity privileges [facility] Start: 03-18-2025 Patient referral to dietitian [facility] Start: 03-18-2025 End: 03-18-2025 Referral to service [facility] Start: 03-18-2025 Admission procedure [facility] Start: 03-18-2025 Assessment of risk of venous thromboembolism [facility] Start: 03-18-2025 Insertion of catheter into peripheral vein [facility] Start: 03-18-2025 Measuring intake and output [facility] Start: 03-18-2025 Providing care according to standard [facility] Start: 03-18-2025 Inhalation therapy procedure [facility] Start: 03-18-2025 Respiratory therapy [facility] Start: 03-18-2025 Urinalysis complete panel - Urine [facility] Start: 03-18-2025 Verification routine [facility] Start: 03-18-2025 Hospital admission, emergency, from emergency room, medical nature [facility] Start: 03-18-2025 [facility] Start: 03-18-2025 D-dimer assay, quantitative [facility] Start: 03-18-2025 Serum inorganic phosphate measurement [facility] Start: 03-05-2025 Patient discharge [facility] Start: 03-02-2025 Following clinical pathway protocol [facility] Start: 03-02-2025 Catheterization of vein [facility] Start: 03-02-2025 Oxygen therapy [facility] Start: 03-02-2025 Tobacco use cessation education [facility] Start: 03-02-2025 Admission procedure [facility] Start: 03-02-2025 Assessment of risk of venous thromboembolism [facility] Start: 03-02-2025 Insertion of catheter into peripheral vein [facility] Start: 03-02-2025 Measuring intake and output [facility] Start: 03-02-2025 Providing care according to standard [facility] Start: 03-02-2025 [facility] Start: 03-02-2025 Ambulation without limitation [facility] Start: 03-02-2025 Inhalation therapy procedure [facility] Start: 03-02-2025 End: 03-02-2025 Referral to service [facility] Start: 03-02-2025 Verification routine [facility] Start: 10-11-2024 Screening for malignant neoplasm of colon [facility] Start: 09-12-2024 End: 12-12-2024 Comprehensive metabolic 2000 panel - Serum or Plasma [facility] Comment on above: Expected: 09/12/2024, Expires: Start: 09-12-2024 Depression Screening Depression Screening [facility] Comment on above: Postponed from 1983 (Declined at t his time) Start: 09-12-2024 End: 12-12-2024 Hemoglobin A1c in Blood [facility] Comment on above: Expected: 09/12/2024, Expires: Start: 09-12-2024 End: 12-12-2024 LIPID PANEL, NONFASTING [facility] Work Phone: Comment on above: Expected: 09/12/2024, Expires: Start: 09-12-2024 End: 12-12-2024 PSA/PROSTATE SPECIFIC ANTIGEN SCREENING [facility] Comment on above: Expected: 09/12/2024, Expires: Start: 09-12-2024 End: 09-12-2024 Patient encounter procedure 09/12/2024 1:00 PM EST Office Visit [facility] [place] [address] [facility], [place] [address] Armani Leong APRN.KICKBOXING INSTRUCTOR [address] [facility] [place] [id number] Yearly/medication follow up [facility] [place] Comment on above: Yearly/medication follow up Start: 07-24-2024 End: 07-24-2024 Patient encounter procedure 07/24/2024 1:40 PM EDT Office Visit [facility] [place] [address] [place] [address] Yaquelin Ceron, JOELLE.KICKBOXING INSTRUCTOR [address] [place] [address] yearly exam [facility] [place] Comment on above: yearly exam Start: 07-23-2024 Annual PCP Team Chronic Disease Visit Annual PCP Team Chronic Disease Visit [facility] Start: 07-09-2024 Covid-19 Vaccine ( season) Covid-19 Vaccine ( season) [facility] Start: 07-09-2024 Influenza vaccination [facility] Start: 11-08-2023 Behavioral Health Screening Behavioral Health Screening [facility] Start: 11-08-2023 zzBehavioral Health Screening zzBehavioral Health Screening [facility] Start: 07-23-2023 End: 09-22-2023 CBC W Auto Differential panel - Blood CBC + DIFF Lab Routine Essential hypertension Expected: 07/23/2023, Expires: 09/22/2023 [facility] Work Phone: Comment on above: Expected: 07/23/2023, Expires: 3 Start: 07-23-2023 End: 09-22-2023 Comprehensive metabolic 2000 panel - Serum or Plasma COMP METABOLIC PANEL Lab Routine Essential hypertension Expected: 07/23/2023, Expires: 09/22/2023 [facility] Work Phone: Comment on above: Expected: 07/23/2023, Expires: 3 Start: 07-23-2023 End: 09-22-2023 Hemoglobin A1c in Blood HGB A1C Lab Routine Elevated glucose Expected: 07/23/2023, Expires: 09/22/2023 [facility] Work Phone: Comment on above: Expected: 07/23/2023, Expires: Start: 07-09-2023 Covid-19 Vaccine () Covid-19 Vaccine () [facility] Start: 07-09-2023 Influenza vaccination [facility] Start: 07-03-2023 Adult depression screening assessment DEPRESSION SCREENING [facility] Start: 07-03-2023 ANNUAL PCP TEAM CHRONIC DISEASE VISIT ANNUAL PCP TEAM CHRONIC DISEASE VISIT [facility] Start: 07-03-2023 COVID-19 VACCINE (#1) COVID-19 VACCINE (#1) [facility] Comment on above: Postponed from 01/27/1966 (Declined at t his time) Start: 07-03-2023 HEPATITIS B (1 of 3 - 3-dose series) HEPATITIS B (1 of 3 - 3-dose series) [facility] Comment on above: Postponed from 1965 (Declined at t his time) Start: 07-03-2023 HEPATITIS C SCREENING HEPATITIS C SCREENING [facility] Comment on above: Postponed from 1983 (Declined at t his time) Start: 07-03-2023 HIV SCREENING HIV SCREENING [facility] Comment on above: Postponed from 1983 (Declined at t his time) Start: 06-01-2023 COLORECTAL CANCER SCREENING COLORECTAL CANCER SCREENING [facility] Start: 06-01-2023 FECAL OCCULT BLOOD FECAL OCCULT BLOOD [facility] Start: 11-08-2022 DEPRESSION ASSESSMENT DEPRESSION ASSESSMENT [facility] Start: 09-07-2022 LIPID SCREEN LIPID SCREEN [facility] Start: 07-09-2022 Influenza vaccination [facility] Start: 07-03-2022 ANNUAL PCP TEAM CHRONIC DISEASE VISIT ANNUAL PCP TEAM CHRONIC DISEASE VISIT [facility] Start: 09-05-2021 DIABETES SCREEN DIABETES SCREEN [facility] Start: 07-09-2021 Influenza vaccination INFLUENZA (#1) [facility] Start: 05-04-2021 Urine microalbumin profile DTAP,TDAP,TD (2 - Td or Tdap) [facility] Start: 2020 PROSTATE CANCER SCREENING DISCUSSION PROSTATE CANCER SCREENING DISCUSSION [facility] Start: 07-22-2019 Adult depression screening assessment DEPRESSION SCREENING [facility] Start: 08-26-2017 Pneumococcal Vaccine: 50+ (2 of 2 - PCV) Pneumococcal Vaccine: 50+ (2 of 2 - PCV) [facility] Start: 2015 SHINGRIX VACCINE (1 of 2) SHINGRIX VACCINE (1 of 2) [facility] Start: 2010 COLOGUARD (FIT-DNA) COLOGUARD (FIT-DNA) [facility] Start: 2010 Colonoscopy COLONOSCOPY [facility] Start: 2010 COLORECTAL CANCER SCREENING COLORECTAL CANCER SCREENING [facility] Start: [address] COLONOGRAPHY [facility] Start: 2010 FECAL OCCULT BLOOD FECAL OCCULT BLOOD [facility] Start: 2010 Screening for malignant neoplasm of colon [facility] Start: 2010 SIGMOIDOSCOPY SIGMOIDOSCOPY [facility] Start: 1984 Hepatitis B Vaccine (1 of 3 - 19+ 3-dose series) Hepatitis B Vaccine (1 of 3 - 19+ 3-dose series) [facility] Start: 1983 BP CONTROLLED (<130/80) BP CONTROLLED (<130/80) [facility] Start: 1983 Depression Screening Depression Screening [facility] Start: 1983 HEPATITIS C SCREENING HEPATITIS C SCREENING [facility] Start: 1983 Hepatitis C screening Hepatitis C Screening [facility] Start: 1983 HIV SCREENING HIV SCREENING [facility] Start: 1983 HIV screening HIV Screening [facility] Start: 1970 COVID-19 VACCINE (#1) COVID-19 VACCINE (#1) [facility] Start: 1970 COVID-19 VACCINE (1) COVID-19 VACCINE (1) [facility] Start: 01-27-1966 COVID-19 VACCINE (#1) COVID-19 VACCINE (#1) [facility] Start: 1965 HEPATITIS B (1 of 3 - 3-dose series) HEPATITIS B (1 of 3 - 3-dose series) [facility] Start: 1965 Hepatitis B Vaccine (1 of 3 - 3-dose series) Hepatitis B Vaccine (1 of 3 - 3-dose series) [facility] Alanine aminotransfe rase [Enzymatic activity/volume] in Serum or Plasma [facility] Albumin [Mass/volume ] in Serum or Plasma [facility] Alkaline phosphatase [Enzymatic activity/volume] in Serum or Plasma [facility] Anion gap in Serum o r Plasma [facility] Basic metabolic 2008 panel with ionized calcium - Serum or Plasma [facility] Bilirubin, total measurement [facility] BUN/Creatinine ratio [facility] Calcium [Mass/volume ] in Serum or Plasma [facility] Carbon dioxide, tota l [Moles/volume] in Central venous blood [facility] Cardioversion [facility] COLOGUARD COLOGUARD Lab Ro angelica Screening for colon cancer Ordered: 09/12/2024 [facility] Comment on above: Ordered: 09/12/2024 Creatinine [Mass/vol ume] in Serum or Plasma [facility] Erythrocyte mean corpuscular volume determination [facility] Glucose [Mass/volume ] in Serum or Plasma [facility] Hematocrit [Volume Fraction] of Blood [facility] Hemoglobin [Mass/vol ume] in Blood [facility] Hemoglobin.gastroint estin al.lower [Presence] in Stool by Immunoassay FECAL OCCULT BLOOD TEST Lab Routine Screening for colon cancer Ordered: 07/23/2023 [facility] Work Phone: Comment on above: Ordered: 07/23/2023 Leukocytes [#/volume ] in Blood [facility] Magnesium measurement [facility] Mean corpuscular hemoglobin concentration determination [facility] Mean corpuscular hemoglobin determination [facility] Measurement of renal function [facility] Natriuretic peptide. B prohormone N-Terminal [Mass/volume] in Serum or Plasma [facility] Neutrophil count [facility] Neutrophil percent differential count [facility] NM Heart Views W str ess and W radionuclide IV [facility] Nucleic acid assay [facility] Ova OR parasites identification [facility] Patient Education [facility] Work Phone: Patient referral [facility] Work Phone: Platelets [#/volume] in Blood [facility] End: 06-18-2026 Polysomnogram POLYSOMNOGRAM (PSG) Procedures Routine Heart failure, unspecified HF chronicity, unspecified heart failure type (HCC) Atrial fibrillation, unspecified type (HCC) Snoring Fatigue, unspecified type 1 Occurrences starting 06/18/2025 until 06/18/2026 [facility] Work Phone: Comment on above: 1 Occurrences starting 06/18/2025 until 06/18/2026 Potassium measurement [facility] Red blood cell count [facility] Red cell distributio n width determination [facility] Serum chloride measurement [facility] Sodium measurement [facility] Total protein measurement [facility] Troponin T.cardiac [Mass/volume] in Serum or Plasma by High sensitivity method [facility] Troponin T.cardiac [Mass/volume] in Serum or Plasma by High sensitivity method [facility] Urea nitrogen [Mass/volume] in Serum or Plasma [facility] End: 08-22-2026 XR Knee - bilateral 4 Views XR KNEE GENERAL 4V AP BOTH/PA BOTH/LAT/MERC BILATERAL Radiology Routine Primary osteoarthritis of both knees 1 Occurrences starting 07/23/2025 until 08/22/2026 [facility] Work Phone: Comment on above: 1 Occurrences starting 07/23/2025 until 08/22/2026 XR Knee - bilateral 4 Views XR KNEE GENERAL 4V AP BOTH/PA BOTH/LAT/MERC BILATERAL Radiology Routine Primary osteoarthritis of both knees 07/23/2025 11:39 AM EDT [facility] End: 07-04-2026 XR Lumbar spine 3 Views XR LUMBAR GENERAL 3V AP/LAT/L5-S1 Radiology Routine Chronic right-sided low back pain without sciatica 1 Occurrences starting 06/04/2025 until 07/04/2026 [facility] Work Phone: Comment on above: 1 Occurrences starting 06/04/2025 until 07/04/2026 XR Lumbar spine 3 Views XR LUMBA R GENERAL 3V AP/LAT/L5-S1 Radiology Routine Chronic right-sided low back pain without sciatica 06/04/2025 9:19 AM EDT [facility] Immunizations Immunization Date Immunization Notes Care Provider Zane berry 09-12-2024 influenza, injectabl e, quadrivalent, preservative free Dr. Pierce Wells MD Work Phone: [facility] 09-12-2024 influenza, seasonal, injectable Armani Salo MARRIAGE AND FAMILY TEACHER.KICKBOXING INSTRUCTOR Work Phone: [facility] 09-12-2024 influenza virus vacc ine, unspecified formulation Jennifer Timmons RN [facility] 07-03-2022 tetanus toxoid, redu pasquale diphtheria toxoid, and acellular pertussis vaccine, adsorbed Renuka Carr RN [facility] 09-27-2019 influenza, injectabl e, quadrivalent, preservative free Dr. Pierce Wells MD Work Phone: [facility] 09-27-2019 influenza, seasonal, injectable, preservative free Armani Salo MARRIAGE AND FAMILY TEACHER.KICKBOXING INSTRUCTOR Work Phone: [facility] 09-27-2019 influenza virus vacc ine, unspecified formulation Armani Salo MARRIAGE AND FAMILY TEACHER.KICKBOXING INSTRUCTOR Work Phone: [facility] 08-07-2018 influenza, injectabl e, quadrivalent, contains preservative Armani Salo MARRIAGE AND FAMILY TEACHER.KICKBOXING INSTRUCTOR Work Phone: [facility] 11-13-2017 influenza, injectabl e, quadrivalent, contains preservative Armani Salo MARRIAGE AND FAMILY TEACHER.KICKBOXING INSTRUCTOR Work Phone: [facility] 08-26-2016 influenza, injectabl e, quadrivalent, preservative free Armani Salo MARRIAGE AND FAMILY TEACHER.KICKBOXING INSTRUCTOR Work Phone: [facility] 08-26-2016 influenza, seasonal, injectable Armani Salo MARRIAGE AND FAMILY TEACHER.KICKBOXING INSTRUCTOR Work Phone: [facility] 08-26-2016 pneumococcal polysaccharide vaccine, 23 valent Armani Salo MARRIAGE AND FAMILY TEACHER.KICKBOXING INSTRUCTOR Work Phone: [facility] 09-10-2015 influenza, injectabl e, quadrivalent, contains preservative Armani Salo MARRIAGE AND FAMILY TEACHER.KICKBOXING INSTRUCTOR Work Phone: [facility] 08-10-2014 influenza, seasonal, injectable Armani Salo MARRIAGE AND FAMILY TEACHER.KICKBOXING INSTRUCTOR Work Phone: [facility] 11-03-2011 influenza virus vacc ine, unspecified formulation Armani Salo MARRIAGE AND FAMILY TEACHER.KICKBOXING INSTRUCTOR Work Phone: [facility] 05-04-2011 tetanus toxoid, redu pasquale diphtheria toxoid, and acellular pertussis vaccine, adsorbed Armanibenjamin Leong MARRIAGE AND FAMILY TEACHER.KICKBOXING INSTRUCTOR Work Phone: [facility] 11-08-2005 tetanus and diphther ia toxoids, adsorbed, preservative free, for adult use (2 Lf of tetanus toxoid and 2 Lf of diphtheria toxoid) Armani Leong MARRIAGE AND FAMILY TEACHER.KICKBOXING INSTRUCTOR Work Phone: [facility] Work Phone: Payers Date Payer Category Payer Unknown [id number] 2025 Medicaid [id number] 2025 Self-pay 2025 Unknown [id number] 2024 Private Health Insurance [id number] 2024 Unknown [id number] 2024 Unknown [id number] 2023 Unknown [id number]. [id number] 2021 Medicaid [employer] [place] [id number] 2021-Present [id number] [place] [id number] Medicaid [id number] 2021 Medicaid [id number]. [id number] 2017 Unknown [facility] [id number] Unknown [id number] 2.16.840.1.001991.3.579.2. 462 Unknown [id number] 2.16.840.1.131138.3.579.2. 462 Unknown [id number] 2.16.840.1.328972.3.579.2. 462 Unknown [id number] 2.16.840.1.323630.3.579.2. 462 Unknown [id number] 2.16.840.1.834072.3.579.2. 462 Unknown [id number] 2.16.840.1.380906.3.579.2. 462 Unknown [id number] 2.16.840.1.912347.3.579.2. 462 Unknown [id number] 2.16.840.1.573422.3.579.2. 462 Unknown [id number] 2.16.840.1.716703.3.579.2. 462 Unknown [id number] 2.16.840.1.424622.3.579.2. 462 Unknown [id number] 2.16.840.1.794537.3.579.2. 462 Unknown [id number] 2.16.840.1.115460.3.579.2. 462 Unknown [id number] 2.16.840.1.017489.3.579.2. 462 Unknown [id number] 2.16.840.1.546659.3.579.2. 462 Unknown [id number] 2.16.840.1.423356.3.579.2. 462 Unknown [id number] 2.16.840.1.502605.3.579.2. 462 Unknown [id number] 2.16.840.1.734130.3.579.2. 462 Unknown [id number] 2.16840.1.725490.3.579.2. 462 Unknown [id number] 2.16840.1.077785.3.579.2. 462 Unknown [id number] 2.16840.1.257315.3.579.2. 462 Unknown [id number] 2.840.1.235572.3.579.2. 462 Social History Date Type Detail Facility Start: 06-01-2011 End: 07-03-2022 Tobacco smoking status NHIS Never smoked tobacco [facility] Start: 06-01-2011 End: 07-03-2022 Tobacco use and exposure Former smokeless tobacco user [facility] End: 10-19-2010 History of tobacco use Chews Tobacco [facility] Start: 10-28-2021 End: 07-23-2025 Alcohol intake Current non-drinker of alcohol (finding) [facility] Start: 09-20-2015 End: 07-03-2022 Tobacco Comment Quit chewing 5years [facility] Start: 1965 Sex Assigned At Not on file [facility] Start: 03-18-2021 End: 07-03-2022 Exposure to SARS-CoV-2 (event) Not sure [facility] Work Phone: Start: 07-02-2022 History SDOH Alcohol Frequency 2 [facility] Start: 07-02-2022 History SDOH Alcohol Std Drinks 1 [facility] Start: 07-02-2022 History SDOH Social Connections Living 3 [facility] Start: 07-02-2022 End: 07-23-2023 History of Social function [facility] Start: 07-02-2022 End: 07-23-2023 Social connection and isolation [facility] Do you belong to any clubs or organizations such as orthodox groups, unions, fraternal or athletic groups, or school groups? No [facility] Are you now , , , , never or living with a partner? [facility] How often to you hav e a drink containing alcohol? Monthly or less [facility] How many standard dr inks containing alcohol do you have on a typical day? 1 or 2 [facility] How often do you hav e 6 or more drinks on 1 occasion? Never [facility] How hard is it for y ou to pay for the very basics like food, housing, medical care, and heating Hard [facility] Do you feel stress - tense, restless, nervous, or anxious, or unable to sleep at night because your mind is troubled all the time - these days [OSQ] Only a little [facility] (I/We) worried jorge luis er (my/our) food would run out before (I/we) got money to buy more. Never true [facility] The food that (I/we) bought just didn't last, and (I/we) didn't have money to get more. Sometimes true [facility] Start: 10-09-2012 In the past 12 months, has lack of transportation kept you from medical appointments or from getting medications? No [facility] In the past 12 month s, was there a time when you were not able to pay the mortgage or rent on time? Yes [facility] Start: 09-27-2019 Occasional Occasional [facility] Start: 09-27-2019 None None [facility] Start: 11-30-2019 Spouse/ Significant Other Spouse/ Significant Other [facility] Start: 09-27-2019 Non-smoker Non-smoker [facility] Start: 03-05-2025 Sex Male (finding) [facility] Start: 1965 Sex Assigned At Male [facility] How hard is it for y ou to pay for the very basics like food, housing, medical care, and heating Somewhat hard [facility] Do you feel stress - tense, restless, nervous, or anxious, or unable to sleep at night because your mind is troubled all the time - these days [OSQ] To some extent [facility] Goals Date Patient Goal Desired Activity /State Functional Status Date Assessment Result Facility 03-29-2025 Total score [AUDIT-C] 0 03/29/20 7:42 PM EDT User, Gabbie [facility] 03-29-2025 How often to you hav e a drink containing alcohol? Never 03/29/2025 7:42 PM EDT User, Jessicat Never [facility] 03-29-2025 Functional status Patient does n ot drink 03/29/2025 7:42 PM EDT User, Sandrinemarshfield Patient does not drink [facility] 03-29-2025 How often do you hav e 6 or more drinks on 1 occasion? Never 03/29/2025 7:42 PM EDT User, Gabbie Never [facility] 03-22-2025 Functional status Ambulates;Chair [facility] Work Phone: 03-05-[address] [facility] Work Phone: 06-14-2015 Are you deaf, or do you have serious difficulty hearing No 06/14/2015 4:38 PM EDT Rocio Marie LPN No [facility] 06-14-2015 Are you blind, or do you have serious difficulty seeing, even when wearing glasses No 06/14/2015 4:38 PM Rocio Martínez LPN No [facility] 06-14-2015 Do you have serious difficulty walking or climbing stairs No 06/14/2015 4:38 PM Rocio Martínez LPN No [facility] 06-14-2015 Do you have difficul ty dressing or bathing No 06/14/2015 4:38 PM Rocio Martínez LPN No [facility] 06-14-2015 Because of a physica l, mental, or emotional condition, do you have difficulty doing errands alone such as visiting a physician's office or shopping No 06/14/2015 4:38 PM Rocio Martínez LPN No [facility] Mental Status Date Assessment Result Facility 03-22-2025 Cognitive function Voice/Name [facility] Work Phone: 03-18-2025 Cognitive function Level Of Cons ciousness Awake;Alert;Appropriate;Fol lows Commands [facility] Work Phone: 03-05-2025 Cognitive function Voice/Name [facility] Work Phone: 06-14-2015 Because of a physica l, mental, or emotional condition, do you have serious difficulty concentrating, remembering, or making decisions No 06/14/2015 4:38 PM EDT Frank Rocio HANNA No [facility] Clinical Notes 01-01-2011 to 07-31-2025 Telephone Encounter - Bill Andradein, SLICING MACHINE OPERATOR - 07/23/2025 1:08 PM EDTTelephone Encounter - Muna Andrade, SLICING MACHINE OPERATOR - 07/23/2025 1:08 PM EDTGAruna lozoya RT(R) - 07/23/2025 11:20 AM EDT Note Date & Type Note Facility 07-31-2025 Note HNO ID: [id number] Author: JENNIFER EUBANKS, PT Service: ? Author [...] deviations identified in the objective section above. Self-Longterm Management: 1: taught pt. how to lock [...] Stop Time : 1147 Jennifer Eubanks, PT [facility] 07-23-2025 Telephone encounter Note Patient reports struggling with being able to eat fruit and vegetables due to cost. Patient notes that he has not been able to work the past 5 months due to health issues. Reports that he does receive food stamps, but tries to make those last by eating foods that are not fresh. Sw notes that she has [employer] with food resources. Cordelia also will see if [facility] on [employer] still has discount [employer]ern[employer] coupons. Patient turns 60 next week. Cordelai will compile information and mail to patient home. [facility] 07-23-2025 Miscellaneous Notes Patient reports struggling with being able to eat fruit and vegetables due to cost. Patient notes that he has not been able to work the past 5 months due to health issues. Reports that he does receive food stamps, but tries to make those last by eating foods that are not fresh. Sw notes that she has [facility] with food resources. Cordelia also will see if [facility] on [employer] still has discount [employer] coupons. Patient turns 60 next week. Sw will compile information and mail to patient home. documented in this encounter [facility] 07-23-2025 History of Presen t illness Narrative [...] PATIENT PRESENTS WITH AN IMPLANTABLE OR ATTACHED VIOLIN TEACHER: No RADIOLOGY DEPARTMENT: General X-ray: Exam(s) Completed: Lower Extremity X-Ray(s): Knee, AP / Lat / Tunne / Merchant Bilateral PERIPHERAL IV DATA: Not applicable SIGNED BY: RT Klarissa(R) July 23, 2025 11:19 AM documented in this encounter [facility] 07-23-2025 Note HNO ID: [id number] Author: ARUNA BINGHAM RT(R) Service: ? Author Type: Technologist Type: Progress Notes Filed: 07/23/2025 11:40 Note Text: Radiology Service Progress Note PATIENT NAME: JoséM iguel GRAMAJON: [id number] DATE OF SERVICE: July 23, 2025 TIME: [...] PATIENT PRESENTS WITH AN IMPLANTABLE OR ATTACHED VIOLIN TEACHER: No RADIOLOGY DEPARTMENT: General X-ray: Exam(s) Completed: Lower Extremity X-Ray(s): Knee, AP / Lat / Tunne / Merchant Bilateral PERIPHERAL IV DATA: Not applicable SIGNED BY: RT Klarissa(R) July 23, 2025 11:19 AM [facility] 07-23-2025 History of Presen t illness [...] for assistance with food insecurity. Armani Leong APRN.CNP RTO in 3 months, sooner if needed. This note was partly generated using [employer] voice recognition dictation and may contain some misspelled or inaccurate words missed on review. Recording using [employer] software for draft documentation of the visit was discussed with the patient/authorized insurance claim representative; all questions welcomed and answered. Patient/authorized insurance claim representative agreed to proceed documented in this encounter [facility] 07-23-2025 Note HNO ID: [id number] Author: ARMANI LEONG APRN.CNP Service: ? Author [...] for assistance with food insecurity. Armani Leong APRN.KICKBOXING INSTRUCTOR RTO in 3 months, sooner if needed. This note was partly generated using Dragon voice recognition dictation and may contain some misspelled or inaccurate words missed on review. Recording using [employer] software for draft documentation of the visit was discussed with the patient/authorized insurance claim representative; all questions welcomed and answered. Patient/authorized insurance claim representative agreed to proceed [facility] 07-18-2025 History of Presen t illness Narrative Program_ID:[id number] Access Code: [email or web address] URL: [email or web address] Date: 07-18-2025 Prepared By: Jennifer Eubanks Program [...] Planned: 6 Planned Treatment Interventions: Therapeutic exercise (55296), Neuromuscular re-education (56025), Manual therapy (71706), Therapeutic activities (00821), Self-[place] [facility] [place] management (55386), Gait Training (91715) PLAN FOR NEXT VISIT: Core activation standing [...] Demonstration TREATMENT: PT Treatment Interventions: Therapeutic Exercise, Self-Longterm Management, Neuromuscular Re-Education, Therapeutic Activity Evaluation Therapeutic Exercise: 1: *Access Code: [email or web address] URL: [email or web address] Date: 07/18/2025 Prepared by: Jennifer Triana Exercises [...] cueing and correction of abnormal movement patterns. Self-Longterm Management: 1: advised use of rollator 2: [...] Jennifer Eubanks PT documented in this encounter [facility] 07-18-2025 Note HNO ID: [id number] Author: JENNIFER EUBANKS, PT Service: ? Author [...] Planned: 6 Planned Treatment Interventions: Therapeutic exercise (31271), Neuromuscular re-education (29611), Manual therapy (85513), Therapeutic activities (56700), Self-[place] [facility] [place] facility management (73897), Gait Training (79109) PLAN FOR NEXT VISIT: Core activation standing [...] had a w (more content not included)... [facility] 09-05-2025 Telephone encounter Note Sent mychart to patient in regards to SSA disability contact number as I cannot fill this form out without proper testing tools. Armani Leong APRN.CNP [facility] 07-13-2025 Miscellaneous Notes Sent mychart to patient in regards to SSA disability contact number as I cannot fill this form out without proper testing tools. Armani Leong APRN.CNP Type of letter/form/fax request - Disability Form received from mail on 1 floor and placed on MD desk (Dr. Wells) for completion. Completed form needs to be faxed to [facility] at [phone]. Route to [place] when form completed for processing documented in this encounter [facility] 07-10-2025 Telephone encounter Note Type of letter/form/fax request - Disability Form received from mail on 1 floor and placed on MD desk (Dr. Wells) for completion. Completed form needs to be faxed to [employer] at [phone]. Route to [place] when form completed for processing [facility] 06-25-2025 Progress note [facility] 06-25-2025 Progress note Note Date/Time June 25, 2025 1:54pm [facility] [address] [place] [address] OFFICE VISIT Date of Service: 06/25/25 MR#: [id number] Acct: [id number] Name: JOSÉ MIGUEL YOUNG . Rep #: [id number] : 1965 Provider: YANY Miranda Age/Sex: 59/M [place] [facility] Status: Signed HPI HPI History of [...] Intake Visit Reasons: 1 M FU/Needs EKG Quality Control Operator Required: No Accompanied by: Significant Other Is [...] the past year?: No PFSH Medical History (Reviewed 06/25/25 @ 13:43 by José Miguel Miranda NP, ROOM SERVICE FOOD SERVICE ATTENDANT-C) Atrial fibrillation (HFpEF) heart failure with preserved ejection fraction D-dimer, elevated Morbid obesity with BMI of 50.0-59.9, adult Dyspnea Anxiety and depression HTN (hypertension) Disorder of bone, unspecified Obesity hypoventilation syndrome Surgical History (Reviewed 06/25/25 @ 13:43 by José Miguel Miranda NP, ROOM SERVICE FOOD SERVICE ATTENDANT-C) No history of previous surgery Family History (Reviewed 06/25/25 @ 13:43 by José Miguel Miranda NP, ROOM SERVICE FOOD SERVICE ATTENDANT-C) Father CVA (cerebral vascular accident) Cancer Mother CVA (cerebral vascular accident) Diabetes Social History (Reviewed 06/25/25 @ 13:43 by José Miguel Miranda NP, ROOM SERVICE FOOD SERVICE ATTENDANT-C) Smoking Status: Never smoker alcohol intake: never [...] fibrillation Plan: Atrial Fibrillation Diagnosis: February 2025 [id number] score: 2 (CHF, HTN) Atrial fibrillation stage: [...] at 65 beats minute with QRS 90 [place] [employer] Functional Class: 2 ACC/AHA stage: [...] updated, as necessary. Follow Up: 12-15 Months (FOUNDATION ENGINEER) 6 Months (ROOM SERVICE FOOD SERVICE ATTENDANT/PA) Coding Level of Care Code Off vis,est,level [...] EDWARDC> Date _ José Miguel Miranda NP ROOM SERVICE FOOD SERVICE ATTENDANT-C Cosigner Signature: Date (if applicable) CC: Dr. Pierce Wells MD ~ [employer] Work Phone: 1(104) 764-864008-08-2025 Telephone encounter Note* Telephone Encounter - Ruby Lee MA - 06/15/2025 9:23 AM EDT Do you need to see pt first. Nothing documented in last few visits regarding fatigue or sleep issues. Ruby Lee MA [facility]08-08-2025 Miscellaneous Notes* Telephone Encounter - Ruby Lee MA - 06/15/2025 9:23 AM EDT Do you need to see pt first. Nothing documented in last few visits regarding fatigue or sleep issues. Ruby Lee MA [facility] NoteHNO ID: [id number] Author: CHERRI CERDA APRN.MELIA Service: ? 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 Author [...] Negative for suicidal ideas. The patient is nervous/anxious.[facility]07-28-2025 History of Present illness Narrative* Joaquim [...] PATIENT PRESENTS WITH AN IMPLANTABLE OR ATTACHED VIOLIN TEACHER: No RADIOLOGY DEPARTMENT: General X-ray: Exam(s) Completed: Spine X-Ray(s): Lumbar AP / LAT / L5-S1 PERIPHERAL IV DATA: Not applicable SIGNED BY: RT Wilder(R) June 04, 2025 9:12 AM documented in this encounterKettering Health [facility]07-28-2025 NoteHNO ID: [id number] Author: JOAQUIM ZAVALETA RT(R) Service: ? Author Type: Branch Store Manager Type: Progress Notes Filed: 06/04/2025 09:19 Note [...] PATIENT PRESENTS WITH AN IMPLANTABLE OR ATTACHED VIOLIN TEACHER: No RADIOLOGY DEPARTMENT: General X-ray: Exam(s) Completed: Spine X-Ray(s): Lumbar AP / LAT / L5-S1 PERIPHERAL IV DATA: Not applicable SIGNED BY: RT Wilder(R) June 04, 2025 9:12 [facility]07-28-2025 Instructions* Patient Instructions* Armani Leong APRN.KICKBOXING INSTRUCTOR - 06/04/2025 8:58 AM EDT We discussed your heart failure and blood pressure: - Your blood pressure today was 130/70, which is stable. Continue monitoring your blood pressure asdirected by your manager international. - You are currently following with your manager international at [facility]. Please continue attending your scheduled appointments with them. - You are taking Eliquis for your heart condition. Continue this medication as prescribed. - You mentioned being started on Farxiga and discontinuing potassium and low- dose aspirin. Please continue with the current medication regimen as directed by your manager international. We discussed your back pain: - You [...] food as directed. - Consider seeing a paintings restorer for long-term management of your chronic back [...] as possible. - Follow up with your manager international as scheduled to manage your heart condition. - I will see you back in 6 weeks to review your progress, including your x-ray results, pain management, and overall health. If you have any questions or concerns before your next visit, please contact our office. documented in this encounterKettering Health [facility]07-28-2025 History of Present illness Narrative* Armani Leong [...] He is currently underthe care of a manager international at [facility] and had a cardioversion performed on 05/09. [...] needed. This note was partly generated using [employer] voice recognition dictation and may contain some misspelled or inaccurate words missed on review. Recording using [employer] software for draft documentation of the visit was discussed with the patient/authorized insurance claim representative; all questions welcomed and answered. Patient/authorized insurance claim representative agreed to proceed documented in this encounterKettering Health [facility]07-28-2025 NoteHNO ID: [id number] Author: ARMANI LEONG APRN.CNP Service: ? Author [...] is currently under the care of a manager international at [facility] and had a cardioversion performed on 05/09. [...] psychiatric evaluation if symptoms worsen. Armani Leong APRN.KICKBOXING INSTRUCTOR RTO in 6 weeks, sooner if needed. This note was partly generated using [employer] voice recognition dictation and may contain some misspelled or inaccurate words missed on review. Recording using [employer] software for draft documentation of the visit was discussed with the patient/authorized insurance claim representative; all questions welcomed and answered. Patient/authorized insurance claim representative agreed to proceedBl[facility] Telephone encounter Note* Telephone Encounter - Pierce Wells MD - 05/29/2025 11:49 AM EDT OK to refill as ordered Pierce Wells MD [facility]07-22-2025 Miscellaneous Notes* Telephone Encounter - Pierce Wells [...] 29, 2025 10:24 AM documented in this encounterKettering Health Hamilton07-22-2025 Telephone encounter Note * Telephone Encounter - [...] Beata Ragsdale May 29, 2025 10:24 AM [facility]07-14-2025 Telephone encounter Note* Telephone Encounter - Angela [...] going to call them. Angela Ojeda RN [facility]07-14-2025 Miscellaneous Notes* Telephone Encounter - Angela Ojeda [...] them. Angela Ojeda RN documented in this encounterKettering Health Hamilton07-09-2025 Procedure note [facility] Medical Records Department [address] [place] [address] Procedure Report 05/16/25 1306 MR#: [id number] Acct: [id number] Name: JOSÉ MIGUEL YOUNG . Rep #: [id number] : 1965 59 From: Bay Phillips DO PCP: Dr. Pierce Wells MD Status:[facility] Location: [facility] Procedures Pulmonary Pulmonary Procedures /Diagnostic Testin Con Sedation Non-invasive Procedural Procedure Information Date of Procedure: 05/16/25 Description of procedure: CONSCIOUS SEDATION REPORT DATE OF SERVICE: May 16, 2025 BRIEF HISTORY OF PRESENT ILLNESS: The patient is a 59-year-old male who presented to [facility] an electiveoutpatient cardioversion due to underlying atrial [...] Phillips DO; Dr. Pierce Wells MD~ Signed [facility]07-09-2025 Procedure note [facility] Medical Records Department [address] [place] [address] Procedure Report 05/16/25 1239 MR#: [id number] Acct: [id number] Name: JOSÉ MIGUEL YOUNG . Rep #: [id number] : 1965 59 From: Dimitris Lucio MD PCP: Dr. Pierce Wells MD Status:[facility] Location: [facility] Problems Associated Problem List Diagnoses (1) Atrial [...] Lucio MD; Dr. Pierce Wells MD~ Signed [facility]07-05-2025 Telephone encounter Note* Telephone Encounter - Jennifer Timmons RN - 05/12/2025 5:42 PM EDT Reason for Call: Regarding medication question for inflamed eyes. Reports burning and watery. Asking about taking benadryl with new cardiology medication. Outcome: Home care recommendation given. Care advice reviewed and voiced understanding. Advised patient and it would be best to check with the pharmacist or manager international for recommendation on medication. Patient's verbalized understanding. [...] drip Protocols used: Eye - Red Without Sxw-OLAAI-HX [facility]07-05-2025 Miscellaneous Notes* Telephone Encounter - Jennifer Timmons RN - 05/12/2025 5:42 PM EDT Reason for Call: Regarding medication question for inflamed eyes. Reports burning and watery. Asking about taking benadryl with new cardiology medication. Outcome: Home care recommendation given. Care advice reviewed and voiced understanding. Advised patient and it would be best to check with the pharmacist or manager international for recommendation on medication. Patient's verbalized understanding. [...] drip Protocols used: Eye - Red Without Thp-MDPTP-PN documented in this encounterKettering Health [facility]07-02-2025 Progress note Author Dimitris Lucio [facility] Note Date/Time May 09, 2025 4:40p m [facility] [address] [place] [address] OFFICE VISIT Date of Service: 05/09/25 MR#: [id number] Acct: [id number] Name: JOSÉ MGIUEL YOUNG . Rep #: [id number] : 1965 Provider: Dr. Ariela Lucio MD Age/Sex: 59/M Location[facility] Status: Signed HPI HPI History of [...] Source Monitor Intake Visit Reasons: S/P HOSP ([facility] 03/22) Quality Control Operator Required: No Accompanied by: Significant Other Is [...] you fallen in the past year?: No [facility] Medical History Atrial fibrillation (HFpEF) heart failure [...] Dimitris Cavanaugh> Date _ Dimitris Lucio MD [facility] Signature: Date (if applicable) CC: Dr. Pierce Wells MD ~ [facility] Work Phone: 1(258) 422-925907-02-2025 Progress [facility] [address] [place] [address] [address] [place] [address] OFFICE VISIT Date of Service: 05/09/25 MR#: [id number] Acct: [id number] Name: JOSÉ MIGUEL YOUNG Sr. Rep #: [id number] : 1965 Provider: Dr. Ariela Lucio MD Age/Sex: 59/M Location: [facility] Status: Signed HPI HPI History of [...] Source Monitor Intake Visit Reasons: S/P HOSP ([facility] 03/22) Quality Control Operator Required: No Accompanied by: Significant Other Is [...] applicable) CC: Dr. Pierce Wells MD ~ [facility]06-28-2025 History of Present illness Narrative* Pierce Wells [...] to Cardio, first visit on 05/09/25 with [facility], Dr. Lucio. Taking Eliquis 5 [...] to once daily. - Scheduled follow-up with manager international Dr. Lucio next week. - Ordered lab [...] management; will discuss any necessary adjustments with manager international Dr. Lucio during upcoming appointment. 5. Chronic bilateral low back pain without sciatica (M54.50) - Persistent back pain; currently taking Tylenol 500 mg, two tablets three times daily. - Sent prescription for Tylenol to [facility]. - Discussed use of non-chewable aspirin; prescription sent to [facility]. - Advised continuation of current pain management regimen. Follow up in 1 month I agree with the Chief Complaint, ROS, and Past Histories independently gathered by the clinical clinical support manager and the remaining scribed note accurately describes my personal service to the patient. Recording using [employer] software for draft documentation of the visit was discussed with the patient/authorized insurance claim representative; all questions welcomed and answered. Patient/authorized insurance claim representative agreed to proceed Medical Decision Making: Problems: Moderate: 1+ chronic illnesses with change and 2+ stable chronic illnesses Risk: Moderate: Drug management Medical Decision Making Level: 4 - Moderate Pierce Wells MD The documentation for this note was completed by Ruby Lee MA acting as scribe for Pierce Wells MD. May 05, 2025 8:35 AM. Ruby Lee MA documented in this encounterKettering Health [facility]06-28-2025 NoteHNO ID: [id number] Author: PIERCE WELLS MD Service: ? Author [...] AST 03/30/2025 38 ALT (more content not included)...[facility]06-17-2025 Telephone encounter Note* Telephone Encounter - Pierce Wells MD - 04/24/2025 5:00 PM EDT Noted Pierce Wells MD [facility]06-17-2025 Miscellaneous Notes* Telephone Encounter - Pierce Wells [...] advise, Mona Coughlin RN documented in this encounterKettering Health Hamilton06-11-2025 Telephone encounter Note * Telephone Encounter - [...] Please review and advise, Mona Coughlin RN [facility]05-27-2025 Telephone encounter Note* Telephone Encounter - Ruby Lee MA - 04/03/2025 9:56 AM EDT Spoke with Blanca, she 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 Copy made for records, originals at med rec. 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 Copy made for records, originals at [...] folder. Madison Marie MA documented in this encounterKettering Health [facility]05-27-2025 Telephone encounter Note * Telephone Encounter - Angela Ojeda RN - 04/03/2025 9:40 AM EDT Pts called in asking if FMLA paperwork had been faxed to the number on it. Please call and letwife know if it has been taken care of. Angela Ojeda RN [facility]05-23-2025 NoteHNO ID: [id number] Author: PIERCE WELLS MD Service: ? Author [...] pt requested to stay with [facility] as [facility] has not returned their multiple [...] going to harm others. Below copied from Teez[employer]by: Chief Complaint: Shortness of Breath Informant: patient [...] acute exacerbation of HFp (more content not included)...[facility]05-20-2025 Telephone encounter Note* Telephone Encounter - Madison Marie MA - 03/27/2025 2:47 PM EDT Type of form: FMLA Form received via walk in When form is completed, Pt has upcoming appt on 03/30/25 for hospital follow up Form has been forwarded to upcoming appt folder. Madison Marie MA [facility]05-19-2025 NoteHNO ID: [id number] Author: RUBY LEE MA Service: ? Author Type: Director Workers Compensation Type: Progress Notes Filed: 03/26/2025 10:10 Note Text: Pt went to [facility] ER for his diarrhea. Was not admitted. Report added to hospital records for his appt 03/30/25. [facility] History of Present illness Narrative* Ruby Lee MA - 03/26/2025 10:10 AM EDT Pt went to [facility] ER for his diarrhea. Was not admitted. [...] EDT TRANSITION CARE MANAGEMENT (TCM) INITIAL CONTACT Director Workers Compensation Outreach Provider Action/FYI: 10 day TCM Called pt to on 03/23/25, message left. See other TE as well. Pt referred to Cardiology for A-fib, pt requested to stay with [facility] as [facility] has not returned their multiple [...] of Discharge 03/22/2025 SUMMARY: -Pt discharged from [facility] on 03/22/25. -Admitted for: 1) Hypertensive Urgency 2) heart failure with preserved ejection fraction Below copied from Teez[employer]by: Chief Complaint: Shortness of Breath Informant: patient [...] for provider to review documented in this encounterKettering Health Hamilton05-18-2025 Telephone encounter Note * Telephone Encounter - [...] USE: no OTHER SYMPTOMS: no Protocols used: Ydqreyyk-RXWVM-OY [facility]05-18-2025 Miscellaneous Notes* Telephone Encounter - Malissa Amaya [...] USE: no OTHER SYMPTOMS: no Protocols used: Uipjcelw-ZHYFT-CC documented in this encounterKettering Health [facility]05-16-2025 NoteHNO ID: [id number] Author: RUBY LEE MA Service: ? Author Type: Director Workers Compensation Type: Progress Notes Filed: 03/26/2025 10:10 Note Text: Message left for pt to call back.[facility]05-16-2025 NoteHNO ID: [id number] Author: PIERCE WELLS MD Service: ? Author Type: Physician Type: Progress Notes Filed: 03/26/2025 10:10 Note Text: I would not expect any of those medications to cause diarrhea; he may try using OTC Imodium to help control the diarrhea Pierce Wells, [facility]05-16-2025 Telephone encounter Note* Telephone Encounter - Braeden Valdes RN - 03/23/2025 8:49 AM EDT Spouse calls back. Transferred to schedule cardiology referral. See patient outreach encounter as well. Braeden Valdes RN [facility]05-16-2025 Miscellaneous Notes* Telephone Encounter - Braeden Valdes [...] 4:50 PM EDT Patient is currently at [facility] to be discharging possibly today. Spouse calls to request a referral to [facility]. She reports that last time patient was at [facility] referred to [facility] for Afib and she has contacted them three times with no returncall to schedule an appointment. Spouse requests call back at [phone] to schedule. Patient scheduled for Hospital Follow Up on 03/30/2025 from previous hospitalization. Please review and advise, Braeden Valdes RN documented in this encounterKettering Health [facility]05-16-2025 NoteHNO ID: [id number] Author: BRAEDEN VALDES RN Service: ? Author Type: Registered Nurse Type: Progress Notes Filed: 03/26/2025 10:10 Note Text: TRANSITION CARE MANAGEMENT (TCM) INITIAL CONTACT Director Workers Compensation Outreach Provider Action/FYI: 10 day TCM Called pt to on 03/23/25, message left. See other TE as well. Pt referred to Cardiology for A-fib, pt requested to stay with [facility] as [facility] has not returned their multiple [...] of Discharge 03/22/2025 SUMMARY: -Pt discharged from [facility] on 03/22/25. -Admitted for: 1) Hypertensive Urgency 2) heart failure with preserved ejection fraction Below copied from Teez[employer]by: Chief Complaint: Shortness of Breath Informant: patient [...] prior to discharge. (more content not included)... [facility]05-16-2025 Telephone encounter Note* Telephone Encounter - Ruby Lee MA - 03/23/2025 8:11 AM EDT Message left for pt or to call back. Please assist with setting up Cardio appt and complete Transition of Care/Pt Outreach encounter started for pt hospital follow up. Ruby Lee MA [facility]05-16-2025 NotePatient Outreach (FAMPWS) JOSÉ MIGUEL YOUNG SR. ([id number]) 1965 M Date Time Provider Department 03/23/25 RUBY LEE During your visit today, we recorded the following information about you: Braeden Valdes RN 03/26/2025 10:10 AM Signed TRANSITION CARE MANAGEMENT (TCM) INITIAL CONTACT Director Workers Compensation Outreach Provider Action/FYI: 10 day TCM Called pt to on 03/23/25, message left. See other TE as well. Pt referred to Cardiology for A-fib, pt requested to stay with [facility] as [facility] has not returned their multiple [...] of Discharge 03/22/2025 SUMMARY: -Pt discharged from [facility] on 03/22/25. -Admitted for: 1) Hypertensive Urgency 2) heart failure with preserved ejection fraction Below copied from Teez[employer]by: Chief Complaint: Shortness of Breath Informant: patient [...] supplementation to prevent hyp (more content not included)...[facility]05-15-2025 Telephone encounter Note* Telephone Encounter - Pierce Wells MD - 03/22/2025 5:07 PM EDT Cardiology consult ordered Pierce Wells MD [facility]05-15-2025 Discharge summary Author Zoë Khan [facility] Note Date/Time March 22, 2025 4:41p [facility] Medical Records Department [address] [place] [address] Discharge Summary 03/22/25 1452 MR#: [id number] Acct: [id number] Name: JOSÉ MIGUEL YOUNG Sr. Rep #: [id number] : 1965 59 From: Zoë Khan MD PCP: Dr. Pierce Wells MD Status:AD M IN Location: [facility] CXO351- 1 Providers Date of Admission: 03/19/25 Date [...] Self Care Charges/Coding Visit Charges Inpatient E&M: 64874 Disch Hosp >30min 03/22/25 1641 <Electronically signed by Zoë Khan MD> Cosigner Signature (if applicable): CC: Dr. Pierce Wells MD; Dr. Zoë Khan MD~ Signed [facility] Work Phone: 1(459) 349-643605-15-2025 Discharge summary Author [facility] Note Date/Time March 22, 2025 2:51p m [facility] Medical Records Department [facility] [place] [address] Instructions for Home/Discharge Instructions 03/22/25 1450 MR#: [id number] Acct: [id number] Name: JOSÉ MIGUEL YOUNG . Rep #: [id number] : 1965 59 From: Zoë Khan MD [...] DO; Dr. Pierce Wells MD ~ Signed [facility] Work Phone: 1(357) 721-963505-15-2025 Telephone encounter Note* Telephone Encounter - Braeden Valdes RN - 03/22/2025 4:50 PM EDT Patient is currently at [facility] hospital to be discharging possibly today. Spouse calls to request a referral to [facility]. [facility] and she has contacted them three times with no returncall to schedule an appointment. Spouse requests call back at [phone] to schedule. Patient scheduled for Hospital Follow Up on 03/30/2025 from previous hospitalization. Please review and advise, Braeden Valdes RN [facility]05-15-2025 Discharge summary [facility] Medical Records Department [address] [place] [address] Discharge Summary 03/22/25 1452 MR#: [id number] Acct: [id number] Name: JOSÉ MIGUEL YOUNG . Rep #: [id number] : 1965 59 From: Zoë Khan MD PCP: Dr. Pierce Wells MD [place] [facility] Prov[facility] Date of Admission: 03/19/25 Date [...] Self Care Charges/Coding Visit Charges Inpatient E&M: 24921 Disch Hosp >30min 03/22/25 1641 Cosigner Signature (if applicable): CC: Dr. Pierce Wells MD; Dr. Zoë Khan MD~ Signed [facility]05-15-2025 [facility] Medical Records Department [address] [place] [address] Discharge Summary 03/22/25 1452 MR#: [id number] Acct: [id number] Name: JOSÉ MIGUEL YOUNG . Rep #: [id number] : 1965 59 From: Zoë Khan MD PCP: Dr. Pierce Wells MD Status:ADM IN Location: [address] Providers Date of Admission: 03/19/25 Date [...] Clear Calc 104. (more content not included)... [facility]05-15-2025 Discharge summary [facility] Medical Records Department [address] [place] [address] Instructions for Home/Discharge Instructions 03/22/25 1450 MR#: [id number] Acct: [id number] Name: JOSÉ MIGUEL YOUNG . Rep #: [id number] : 1965 59 From: Zoë Khan MD [...] DO; Dr. Pierce Wells MD ~ Signed [facility]05-14-2025 Progress note Author Malcom [facility] Note Date/Time March 21, 2025 3:23p m [facility] Medical Records Department [address] [place] [address] Progress Note - Hospitalist 03/21/25811 MR#: [id number] Acct: [id number] Name: JOSÉ MIGUEL YOUNG Sr. Rep #: [id number] : 1965 59 From: Malcom Madsen DO PCP: Dr. Pierce Wells MD Status:AD M IN Location: [place] [id number]- 1 Reason for Visit Reason for Visit: [...] at bedside. Charges/Coding Visit Charges Inpatient E&M: 59294 Subs Hosp L2 03/21/25 1523 <Electronically signed by Malcom Madsen DO> Cosigner Signature (if applicable): CC: ~ Signed [facility] Work Phone: 1(156) 674-380205-14-2025 Progress note [facility] Medical Records Department [address] [place] [address] Progress Note - Hospitalist 03/21/25 0812 MR#: [id number] Acct: [id number] Name: JOSÉ MIGUEL YOUNG Sr. Rep #: [id number] : 1965 59 From: Malcom Madsen DO PCP: Dr. Pierce Wells MD Status:AD M IN Location: [place] [address] Reason for Visit Reason for Visit: Diagnoses [...] at bedside. Charges/Coding Visit Charges Inpatient E&M: 11878 Subs Hosp L2 03/21/25 1523 Cosigner Signature (if applicable): CC: ~ Signed [facility]05-13-2025 Progress note Author Malcom Madsen [facility] Note Date/Time March 20, 2025 12:43 pm [facility] Medical Records Department [address] [place] [address] Progress Note - Hospitalist 03/20/25 0749 MR#: [id number] Acct: [id number] Name: JOSÉ MIGUEL YOUNG . Rep #: [id number] : 1965 59 From: Malcom Madsen DO PCP: Dr. Pierce Wells MD Status:AD M IN Location: [place] [address]- 1 Reason for Visit Reason for Visit: [...] at bedside. Charges/Coding Visit Charges Inpatient E&M: 05091 Subs Hosp L2 03/20/25 1243 <Electronically signed by Malcom Madsen DO> Cosigner Signature (if applicable): CC: ~ Signed [facility] Work Phone: 1(251) 682-432005-13-2025 Progress note [facility] Medical Records Department [address] [place] [address] Progress Note - Hospitalist 03/20/25 0749 MR#: [id number] Acct: [id number] Name: JOSÉ MIGUEL YOUNG Sr. Rep #: [id number] : 1965 59 From: Malcom Madsen DO PCP: Dr. Pierce Wells MD Status:AD M IN Location: [place] [address]- 1 Reason for Visit Reason for Visit: [...] at bedside. Charges/Coding Visit Charges Inpatient E&M: 93731 Subs Hosp L2 03/20/25 1245 Cosigner Signature (if applicable): CC: ~ Signed [facility]05-12-2025 Progress note Author Malcom Madsen [facility] Note Date/Time March 19, 2025 12:47 pm [facility] Medical Records Department [address] [place], [place] [id number] Progress Note - Hospitalist 03/19/25 6165 MR#: [id number] Acct: [id number] Name: JOSÉ MIGUEL YOUNG Sr. Rep #: [id number] : 1965 59 From: Malcom Madsen DO PCP: Dr. Pierce Wells MD Status:AD M [place]AGO Location: [place] [address] Reason for Visit Reason for Visit: Diagnoses [...] (Auto) 70.9 H, Lymph % (Auto) 20.9, Hardin % (Auto) 6.1, Eos % (Auto) 1.3, [...] Clarity Clear, Urine pH 7.0, Ur Specific [place] 1.005, Urine Protein 15 H, Urine Glucose [...] (Auto) 70.8 H, Lymph % (Auto) 20.9, Hardin % (Auto) 6.7, Eos % (Auto) 0.8, [...] Findings suggestive of vascular congestion. Reading Location: [facility] Chest CTA 03/18/25 22:27 IMPRESSION: 1. Bilateral pleural effusions, mosaic attenuation, interlobular septal thickening and ground-glass opacities, concerning for pulmonary edema. 2. Mild cardiomegaly and stable small pericardial effusion. 3. Multiple prominent-mildly enlarged unchanged lymph nodes, which are likely reactive. 4. Findings suggestive of pulmonary hypertension. 5. Right adrenal myelolipoma. Reading Location: [facility] Chest X-Ray 03/19/25 05:50 IMPRESSION: No significant interval change in appearance of mild patchy perihilar lower zone predominant ill-defined opacity which may represent mild edema. Cardiac silhouette is again enlarged for technique. Reading Location: [id number] Physical Exam Const alert and no apparent [...] kidney disease Charges/Coding Visit Charges Inpatient E&M: 27616 Subs Hosp L3 03/19/25 1247 <Electronically signed by Malcom Madsen DO> Cosigner Signature (if applicable): CC: ~ Signed [facility] Work Phone: 1(645) 338-783505-12-2025 Progress note [facility] Medical Records Department [address] [place] [address] Progress Note - Hospitalist 03/19/25 9377 MR#: [id number] Acct: [id number] Name: JOSÉ MIGUEL YOUNG Sr. Rep #: [id number] : 1965 59 From: Malcom Madsen DO PCP: Dr. Pierce Wells MD Status:ELVIN ANDERS Location: [place] [address] Reason for Visit Reason for Visit: Diagnoses [...] (Auto) 70.9 H, Lymph % (Auto) 20.9, Hardin % (Auto) 6.1, Eos % (Auto) 1.3, [...] Clarity Clear, Urine pH 7.0, Ur Specific [place] 1.005, Urine Protein 15 H, Urine Glucose [...] (Auto) 70.8 H, Lymph % (Auto) 20.9, Hardin % (Auto) 6.7, Eos % (Auto) 0.8, [...] Findings suggestive of vascular congestion. Reading Location: [facility] Chest CTA 03/18/25 22:27 IMPRESSION: 1. Bilateral pleural effusions, mosaic attenuation, interlobular septal thickening and ground-glassopacities, concerning for pulmonary edema. 2. Mild cardiomegaly and stable small pericardial effusion. 3. Multiple prominent-mildly enlarged unchanged lymph nodes, which are likely reactive. 4. Findings suggestive of pulmonary hypertension. 5. Right adrenal myelolipoma. Reading Location: [facility] Chest X-Ray 03/19/25 05:50 IMPRESSION: No significant interval change in appearance of mild patchy perihilar lower zone predominant ill-defined opacity which may represent mild edema. Cardiac silhouette is again enlarged for technique. Reading Location: [facility] Physical Exam Const alert and no apparent [...] kidney disease Charges/Coding Visit Charges Inpatient E&M: 78821 Subs Hosp L3 03/19/25 1247 Cosigner Signature (if applicable): CC: ~ Signed [facility]05-12-2025 History and physical note Author Thierno Estrada [facility] Note Date/Time March 19, 2025 6:15a m [facility] Medical Records Department [address] [place] [address] H&P Exam - Hospitalist 03/18/252106 MR#: [id number] Acct: [id number] Name: JOSÉ MIGUEL YOUNG Sr. Rep #: [id number] : 1965 59 From: Thierno Thompson DO PCP: Dr. Pierce Wells MD Status:AD M [facility] Location: [place] [id number] - General General Date of Admission: 03/18/25 Date of Service: 03/18/25 Chief Complaint: SOB. HPI Narrative JOSÉ MIGUEL YOUNG, is a 59 M with a past medical history of essential hypertension; on atenolol-hydrochlorothiazide, nifedipine. losartan and guanfacine, hdhbz-ryomnb-vzxllfc; with BMI of 55.7 this admission, history [...] suspicious for DM-2 who now re-presents to [facility] ER complaining of SOB. Mr. [...] expected to be less than 2 midnights [facility] Medical History (Updated 03/19/25 @ 02:51 by [...] (Auto) 70.9 H, Lymph % (Auto) 20.9, Hardin % (Auto) 6.1, Eos % (Auto) 1.3, [...] suggestive of vascular congestion. Reading Location: [facility] Imaging Services [address] [place] [address] CTA Chest W/WO Contrast MR#: [id number] Acct: [id number] Name: JOSÉ MIGUEL YOUNG Sr. Rep #: [id number] : 1965 M 59 From: Uriel Prabhakar MD PCP: Dr. Pierce Wells MD Status: ADM CHAGO Study: CTA Chest W/WO Contrast Date of Exam: 03/18/25 Exam# [id number] Ordering Dr: Thierno Campos DO PROCEDURE: CTA [...] hypertension. 5. Right adrenal myelolipoma. [facility] CC: Dr. Thierno Campos DO; Dr. Pierce Wells MD ~ Transportation Modeler: Signed Assessment & Plan Assessment/Plan (1) Hypertensive [...] in the AM to follow trend. 3. Dwmzj-oigmwk-hmijtta; with BMI of 55.7 this admission with [...] 70 minutes. Charges/Coding Visit Charges OBSV E&M: 54784 Observ/hosp same date L2 03/19/25 0615 <Electronically signed by Thierno Campos DO> Cosigner Signature (if applicable): CC: Dr. Thierno Campos DO; Dr. Pierce Wells MD~ Signed [facility] Work Phone: 1(308) 608-227105-12-2025 History and physical note [facility] Medical Records Department [address] [place] [address] H&P Exam - Hospitalist 03/18/252106 MR#: [id number] Acct: [id number] Name: JOSÉ MIGUEL YOUNG Sr. Rep #: [id number] : 1965 59 From: Thierno Thompson DO PCP: Dr. Pierce Wells MD Status:AD M CHAGO Location: [place] [id number]- [id number] [facility] - General General Date of Admission: 03/18/25 Date of Service: 03/18/25 Chief Complaint: SOB. HPI Narrative JOSÉ MIGUEL YOUNG, is a 59 M with a past medical history of essential hypertension; on atenolol-hydrochlorothiazide, nifedipine. losartan and guanfacine, gxcjn-macdmt-bsbsfkj; with BMI of 55.7 this admission, history [...] for DM-2 who now re- presents to [facility] ER complaining ofSOB. Mr. Young [...] is expected sydney less than 2 midnights [facility] Medical History (Updated 03/19/25 @ 02:51 by [...] (Auto) 70.9 H, Lymph % (Auto) 20.9, Hardin % (Auto) 6.1, Eos % (Auto) 1.3, [...] suggestive of vascular congestion. Reading Location: [facility] Imaging Services [address] [place] [id number] CTA Chest W/WO Contrast MR#: [id number] Acct: [id number] Name: JOSÉ MIGUEL YOUNG . Rep #: [id number] : 1965 M 59 From: Uriel Prabhakar MD PCP: Dr. Pierce Wells MD Status: ADM CHAGO Study: CTA Chest W/WO Contrast Date of Exam: 03/18/25 Exam# [id number] Ordering Dr: Thierno Campos DO PROCEDURE: CTA [...] hypertension. 5. Right adrenal myelolipoma. Reading [facility] CC: Dr. Thierno Campos DO; Dr. Pierce Wells MD ~ Transportation Modeler: Signed Assessment & Plan Assessment/Plan (1) Hypertensive [...] in the AM to follow trend. 3. Wzybd-txfydq-tkkhwsu; with BMI of 55.7 this admission with [...] 70 minutes. Charges/Coding Visit Charges OBSV E&M: 33869 Observ/hosp same date L2 03/19/25 06 Cosigner Signature (if applicable): CC: Dr. Thierno Campos DO; Dr. Pierce Wells MD~ Signed [facility]05-12-2025 Radiology Diagnostic study note [facility] Imaging Services [address] [place] [address] Chest 1 View (Portable) MR#: [id number] Acct: [id number] Name: JOSÉ MIGUEL YOUNG . Rep #: [id number] : 1965 M 59 From: Ronald Goel MD PCP: Dr. Pierce Wells MD Status: AD M CHAGO Study:Chest 1 View (Portable) Date of Exam: 03/19/25 Exam# [id number] Ordering Dr: Thierno Call DO PROCEDURE: CHEST [...] is again enlarged for technique. Reading Location: [id number] CC: Dr. Thierno Campos DO; Dr. Pierce Wells MD ~ Transportation Modeler: Signed [facility]05-11-2025 Discharge summary Author Lyle Moise [facility] Note Date/Time March 18, 2025 9:22p m [facility] Medical Records Department [address] [place] [address] Emergency Department Summary 03/18/25 MR#: [id number] Acct: [id number] Name: JOSÉ MIGUEL YOUNG . Rep #: [id number] : 1965 59 From: Lyle Moise MD [...] similar symptoms: Yes Recent Illness/Hospitalization: Yes [facility] Medical History Lymphedema Obesity hypoventilation syndrome [...] (Auto) 70.9 H Lymph % (Auto) 20.9 Hardin % (Auto) 6.1 Eos % (Auto) 1.3 [...] 30-74 minutes, Including time spent:,Discussing w/Patient &/or Family/Rounding Machine Operator, Arranging Admission or Transfer andPerforming Direct Patient [...] MD [Primary Care Provider] - Print Language: Bhutanese What to do if you have Problems For any increased pain, shortness of breath, bleeding, nausea or vomiting, chestpain, or any unexpected problems, contact your Primary Care Provider. Call [facility] ([phone]) or report to the closest Emergency Room. Call 911 if necessary. 03/18/252121 <Electronically signed by Lyle Moise MD> Cosigner Signature (if applicable): CC: Dr. Pierce Wells MD ~ Signed [facility] Work Phone: 1(106) 880-380705-11-2025 Radiology Diagnostic study note [facility] Imaging Services [address] [place] [id number] CTA Chest W/WO Contrast MR#: [id number] Acct: [id number] Name: JOSÉ MIGUEL YOUNG . Rep #: [id number] : 1965 M 59 From: Mary Ellen Prabhakar MD PCP: Dr. Pierce Wells MD Status: AD Negrita ANDERS Study:CTA Chest W/WO Contrast Date of Exam: 03/18/25 Exam# [id number] Ordering Dr: Thierno Call DO PROCEDURE: CTA [...] Campos DO; Dr. Pierce Wells MD ~ Transportation Modeler: Signed [facility]05-11-2025 Discharge summary [facility] Medical Records Department [address] [place] [address] Emergency Department Summary 03/18/25 MR#: [id number] Acct: [id number] Name: JOSÉ MIGUEL YOUNG . Rep #: [id number] : 1965 59 From: Lyle Moise MD [...] Prior similar symptoms: Yes [facility] Medical History Lymphedema Obesity hypoventilation syndrome [...] (Auto) 70.9 H Lymph % (Auto) 20.9 Hardin % (Auto) 6.1 Eos % (Auto) 1.3 [...] 30-74 minutes, Including time spent:,Discussing w/Patient &/or Family/Rounding Machine Operator, Arranging Admission or Transfer andPerforming Direct Patient [...] MD [Primary Care Provider] - Print Language: Bhutanese What to do if you have Problems For any increased pain, shortness of breath, bleeding, nausea or vomiting, chestpain, or any unexpected problems, contact your Primary Care Provider. Call [facility] ([phone]) or report tothe closest Emergency Room. Call 911 if necessary. 03/18/252121 Cosigner Signature (if applicable): CC: Dr. Pierce Wells MD ~ Signed [facility]05-11-2025 Radiology Diagnostic study note [facility] Imaging Services [address] [place] [address] Chest 1 View (Portable) MR#: [id number] Acct: [id number] Name: JOSÉ MIGUEL YOUNG . Rep #: [id number] : 1965 M 59 From: Mary Ellen Prabhakar MD PCP: Dr. Pierce Wells MD Status: RE G ER Study:Chest 1 View (Portable) Date of Exam: 03/18/25 Exam# [id number] Ordering Dr: Arcadio Moise MD PROCEDURE: CHEST [...] Moise MD; Dr. Pierce Wells MD ~ Transportation Modeler: Signed [facility]04-28-2025 Consult note [facility] Medical Records Department [address] [place] [address] Counseling Note - Pharmacy 03/05/25 1507 MR#: [id number] Acct: [id number] Name: JOSÉ MIGUEL YOUNG . Rep #: [id number] : 1965 59 From: Savanna Soriano PCP: Dr. Pierce Wells MD Status:AD M IN Y Location: [facility] [id number]- 1 Pharmacy [facility] Pharmacy Service has performed discharge medication reconciliation [...] of their dischargemedications. Patient counseled by pharmacy schedulerOmega. Medications at Discharge Home Medications guanfacine 1 [...] Signature (if applicable): Date CC: ~ Signed [facility]04-28-2025 Discharge summary [facility] Medical Records Department [address] [place] [address] Instructions for Home/Discharge Instructions 03/05/25 1445 MR#: [id number] Acct: [id number] Name: JOSÉ MIGUEL YOUNG Sr. Rep #: [id number] : 1965 59 From: Jostin castro DO [...] Care 03/05/25 1448Alexgeorge Arriaza DO CC: Dr. Thierno Campos DO; Dr. Pierce Wells MD; Dr. Pierce Florian DO ~ Signed [facility]04-28-2025 [facility] Medical Records Department [address] [place] [address] Discharge Summary 03/05/25 1446 MR#: [id number] Acct: [id number] Name: JOSÉ MIGUEL YOUNG . Rep #: [id number] : 1965 59 From: Jostin Arriaza DO PCP: Dr. Pierce Wells MD Status:DIS IN [facility] Date of Admission: 03/02/25 Date of [...] is a 59-year-old male who presented to [facility] ED on 03/02/2025 with worsening [...] much improved from admission. (more content not included)...[facility]04-27-2025 Progress note Author Pierce Florian [facility] Note Date/Time March 04, 2025 5:1 4pm [facility] Medical Records Department [address] [place] [address] Progress Note - Hospitalist 03/04/25 1704 MR#: [id number] Acct: [id number] Name: JOSÉ MIGUEL YOUNG . Rep #: [id number] : 1965 59 From: Pierce Florian DO PCP: Dr. Pierce Wells MD Status:AD M IN Location: [place] [address] Reason for Visit Reason for Visit: Diagnoses [...] 35 minutes Charges/Coding Visit Charges Inpatient E&M: 72564 Subs Hosp L2 03/04/25 1714 <Electronically signed by Pierce Florian DO> Cosigner Signature (if applicable): CC: ~ Signed [facility] Work Phone: 1(487) 601-715004-27-2025 Progress note [facility] Medical Records Department [address] [place] [address] Progress Note - Hospitalist 03/04/25 1704 MR#: [id number] Acct: [id number] Name: JOSÉ MIGUEL YOUNG . Rep #: [id number] : 1965 59 From: Pierce Florian DO PCP: Dr. Pierce Wells MD Status:AD M IN Location: [place] [address] Reason for Visit Reason for Visit: Diagnoses [...] 35 minutes Charges/Coding Visit Charges Inpatient E&M: 02534 Subs Hosp L2 03/04/25 1714 Cosigner Signature (if applicable): CC: ~ Signed [facility]04-26-2025 Progress note Author Pierce Florian [facility] Note Date/Time March 03, 2025 11: 21am [facility] Medical Records Department [address] [place] [address] Progress Note - Hospitalist 03/03/25 1111 MR#: [id number] Acct: [id number] Name: JOSÉ MIGUEL YOUNG Sr. Rep #: [id number] : 1965 59 From: Pierce Florian DO PCP: Dr. Pierce Wells MD Status:AD M IN Location: [place] [address] 1 Reason for Visit Reason for Visit: [...] % (Auto) 66.8, Lymph % (Auto) 21.8, Hardin % (Auto) 8.2, Eos % (Auto) 2.2, [...] Clarity Clear, Urine pH 6.0, Ur Specific [place] 1.010, Urine Protein Negative, Urine Glucose (UA) [...] Neut % (Auto) 65.2, Lymph % (Auto) 23.3,Hardin % (Auto) 8.5, Eos % (Auto) 2.1, [...] 20:29 IMPRESSION: No Acute Findings. Reading Location: [facility] Chest CTA 03/02/25 20:45 IMPRESSION: No CT evidence of pulmonary embolism. Cardiomegaly with a small pericardial effusion. Reading Location: [facility] Lower Extremity CT 03/02/25 22:54 IMPRESSION: Dorsal soft tissue swelling but no abscess or osteomyelitis. Reading Location: [facility] Physical Exam Const alert, oriented [...] 35 minutes Charges/Coding Visit Charges Inpatient E&M: 40686 Subs Hosp L2 03/03/25 1121 <Electronically signed by Pierce Florian DO> Cosigner Signature (if applicable): CC: ~ Signed [facility] Work Phone: 1(791) 888-532004-26-2025 Progress note [facility] Medical Records Department [address] [place] [address] Progress Note - Hospitalist 03/03/25 1111 MR#: [id number] Acct: [id number] Name: JOSÉ MIGUEL YOUNG Sr. Rep #: [id number] : 1965 59 From: Pierce Florian DO PCP: Dr. Pierce Wells MD Status:AD M IN Location: [place] [address] Reason for Visit Reason for Visit: Diagnoses [...] Neut% (Auto) 66.8, Lymph % (Auto) 21.8, Hardin % (Auto) 8.2, Eos % (Auto) 2.2, [...] Clarity Clear, Urine pH 6.0, Ur Specific [place] 1.010, Urine Protein Negative, Urine Glucose (UA) [...] Neut % (Auto) 65.2, Lymph % (Auto) 23.3,Hardin % (Auto) 8.5, Eos % (Auto) 2.1, [...] 20:29 IMPRESSION: No Acute Findings. Reading Location: [facility] Chest CTA 03/02/25 20:45 IMPRESSION: No CT evidence of pulmonary embolism. Cardiomegaly with a small pericardial effusion. Reading Location: [facility] Lower Extremity CT 03/02/25 22:54 IMPRESSION: Dorsal soft tissue swelling but no abscess or osteomyelitis. Reading Location: [facility] Physical Exam Const alert, oriented [...] 35 minutes Charges/Coding Visit Charges Inpatient E&M: 19141 Subs Hosp L2 03/03/25 1121 Cosigner Signature (if applicable): CC: ~ Signed [facility]04-26-2025 History and physical note Author Thierno Estrada [facility] Note Date/Time March 03, 2025 6:0 6am [facility] Medical Records Department [address] [place] [address] H&P Exam - Hospitalist 03/02/251 MR#: [id number] Acct: [id number] Name: JOSÉ MIGUEL YOUNG Sr. Rep #: [id number] : 1965 59 From: Thierno Thompson DO PCP: Dr. Pierce Wells MD Status:AD M IN [facility] - General General Date of Admission: 03/02/25 Date of Service: 03/02/25 Chief Complaint: SOB and Wheezing. 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 He admits to redness ofthe skin of [...] is expected to extend beyond 2 midnights. [facility] Medical History Shoulder pain HTN (hypertension) [...] % (Auto) 66.8, Lymph % (Auto) 21.8, Hardin % (Auto) 8.2, Eos % (Auto) 2.2, [...] 20:29 IMPRESSION: No Acute Findings. Reading Location: [facility] Chest CTA 03/02/25 20:45 IMPRESSION: No CT evidence of pulmonary embolism. Cardiomegaly with a small pericardial effusion. Reading Location: [facility] Assessment & Plan Assessment/Plan (1) [...] 75 minutes. Charges/Coding Visit Charges Inpatient E&M: 48671 Init Hosp L3 03/03/25 0606 <Electronically signed by Theirno Campos DO> Cosigner Signature (if applicable): CC: Dr. Thierno Campos DO; Dr. Pierce Wells MD~ Signed [facility] Work Phone: 1(628) 648-353304-26-2025 History and physical note [facility] Medical Records Department [address] [place] [address] H&P Exam - Hospitalist 03/02/25 2201 MR#: [id number] Acct: [id number] Name: JOSÉ MIGUEL YOUNG . Rep #: [id number] : 1965 59 From: Thierno Thompson DO PCP: Dr. Pierce Wells MD Status:AD M IN Location: [facility] [id number]- 1 [facility] - General General Date of Admission: 03/02/25 Date of Service: 03/02/25 Chief Complaint: SOB and Wheezing. 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 He admits to redness ofthe skin of [...] is expected to extend beyond 2 midnights. [facility] Medical History Shoulder pain HTN (hypertension) [...] Neut% (Auto) 66.8, Lymph % (Auto) 21.8, Hardin % (Auto) 8.2, Eos % (Auto) 2.2, [...] 20:29 IMPRESSION: No Acute Findings. Reading Location: [id number] Chest CTA 03/02/25 20:45 IMPRESSION: No CT evidence of pulmonary embolism. Cardiomegaly with a small pericardial effusion. Reading Location: [facility] Assessment & Plan Assessment/Plan (1) [...] 75 minutes. Charges/Coding Visit Charges Inpatient E&M: 38836 Init Hosp 03/03/25 0606 Cosigner Signature (if applicable): CC: Dr. Thierno Campos DO; Dr. 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 jefferson March 19, 2025 2:17pm [facility] Work Phone: 1(457) 162-300504-26-2025 Evaluation note* Diagnosis Onset Date Resolution Status [...] 3:40pm HTN (hypertension) chronic May 092024 3:40pm [facility] Work Phone: 1(477) 233-145104-26-2025 Evaluation note* Diagnosis Onset Date Resolution Status [...] Atrial fibrillation acute May 16, 2025 10:59am [facility] Work Phone: 1(959) 276-394904-26-2025 Evaluation note* Diagnosis Onset Date Resolution Status [...] HTN (hypertension) chronic June 25, 2025 12:53pm [facility] Work Phone: 1([phone]) [phone] Radiology Diagnostic study note [facility] Imaging Services [address] [place] [address] Extremity Lower WITH Contrast MR#: [id number] Acct: [id number] Name: JOSÉ MIGUEL YOUNG . Rep #: [id number] : 1965 M 59 From: Oliver Garza MD PCP: Dr. Pierce Wells MD Status: AD M IN Study:Extremity Lower WITH Contrast Date of E xam: 03/02/25 Exam# [id number] Ordering Dr: Tyron Valiente MD PROCEDURE: EXTREMITY [...] but no abscess or osteomyelitis. Reading Location: [id number] CC: Dr. Tyron Valiente MD; Dr. Pierce Wells MD ~ Transportation Modeler: Signed [facility]04-26-2025 Discharge summary Author Tyron Valiente [facility] Note Date/Time March 02, 2025 10: 04pm [facility] Medical Records Department [address] [place] [address] Emergency Department Summary 03/02/25 MR#: [id number] Acct: [id number] Name: JOSÉ MIGUEL YOUNG . Rep #: [id number] : 1965 59 From: Tyron Valiente MD [...] leg swelling. 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 [...] wheezy. No history of congestive heart failure. [facility] Medical History Shoulder pain HTN (hypertension) [...] % (Auto) 66.8 Lymph % (Auto) 21.8 Hardin % (Auto) 8.2 Eos % (Auto) 2.2 [...] 20:29 IMPRESSION: No Acute Findings. Reading Location: [facility] Chest CTA 03/02/25 20:45 IMPRESSION: No CT evidence of pulmonary embolism. Cardiomegaly with a small pericardial effusion. Reading Location: [facility] Management Discussion w/another healthcare provider: Hospitalist Discharge Plan Dx/Rx/DC Orders Clinical Impression: Hypoxia, CHF (congestive heart failure), Obesity hypoventilation syndrome Disposition Disposition: Acute Care Hospital [facility] What to do if you have Problems For any increased pain, shortness of breath, bleeding, nausea or vomiting, chestpain, or any unexpected problems, contact your Primary Care Provider. Call [facility] ([phone]) or report to the closest Emergency Room. Call 911 if necessary. 03/02/252203 <Electronically signed by Tyron Valiente MD> Cosigner Signature (if applicable): CC: Dr. Pierce Wells MD ~ Signed [facility] Work Phone: 1(507) 482-578104-25-2025 Discharge summary [facility] Medical Records Department [address] [place] [address] Emergency Department Summary 03/02/25 MR#: [id number] Acct: [id number] Name: JOSÉ MIGUEL YOUNG . Rep #: [id number] : 1965 59 From: Tyron Valiente MD [...] leg swelling. 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 [...] wheezy. No history of congestive heart failure. [facility] Medical History Shoulder pain HTN (hypertension) [...] % (Auto) 66.8 Lymph % (Auto) 21.8 Hardin % (Auto) 8.2 Eos % (Auto) 2.2 [...] 20:29 IMPRESSION: No Acute Findings. Reading Location: [facility] Chest CTA 03/02/25 20:45 IMPRESSION: No CT evidence of pulmonary embolism. Cardiomegaly with a small pericardial effusion. Reading Location: [facility] Management Discussion w/another healthcare provider: Hospitalist Discharge Plan Dx/Rx/DC Orders Clinical Impression: Hypoxia, CHF (congestive heart failure), Obesity hypoventilation syndrome Disposition Disposition: Acute Care Hospital [facility] What to do if you have Problems For any increased pain, shortness of breath, bleeding, nausea or vomiting, chestpain, or any unexpected problems, contact your Primary Care Provider. Call [facility] ([phone]) or report tothe closest Emergency Room. Call 911 if necessary. 03/02/252203 Cosigner Signature (if applicable): CC: Dr. Pierce Wells MD ~ Signed [facility]04-25-2025 Radiology Diagnostic study note [facility] Imaging Services [address] [place], [place] [id number] CTA Chest W/WO Contrast MR#: [id number] Acct: [id number] Name: JOSÉ MIGUEL YOUNG . Rep #: [id number] : 1965 M 59 From: Oliver Garza MD PCP: Dr. Pierce Wells MD Status: RE G ER Study:CTA Chest W/WO Contrast Date of Exam: 03/02/25 Exam# [id number] Ordering Dr: Tyron Valiente MD PROCEDURE: CTA [...] with a small pericardial effusion. Reading Location: [facility] CC: Dr. Tyron Valiente MD; Dr. Pierce Wells MD ~ Transportation Modeler: Signed [facility]04-25-2025 Radiology Diagnostic study note [facility] Imaging Services [address] [place] [id number] Chest 1 View (Portable) MR#: [id number] Acct: [id number] Name: JOSÉ MIGUEL YOUNG . Rep #: [id number] : 1965 M 59 From: Oliver Garza MD PCP: Dr. Pierce Wells MD Status: RI E ER Study:Chest 1 View (Portable) Date of Exam: 03/02/25 Exam# [id number] Ordering Dr: Tyron Valiente MD PROCEDURE: CHEST 1 VIEW (PORTABLE) 03/02/2025 REASON FOR EXAM: COUGH TECHNIQUE: Frontal view of the chest. FINDINGS: Hardware: None Heart: Heart size is moderately enlarged. Lungs: The lungs are clear. Bones: The bones are unremarkable. Other: RAD/Chest 1 View (Portable) IMPRESSION: No Acute Findings. Reading Location: [id number] CC: Dr. Tyron Valiente MD; Dr. Pierce Wells MD ~ Transportation Modeler: Signed [facility]04-25-2025 NoteHNO ID: [id number] Author: LILIAN MCKENNA APRN.MELIA Service: ? Author [...] him now. I do not want to squad.[facility]02-24-2025 Telephone encounter Note* Telephone Encounter - Qing Saab LPN - 01/01/2025 10:32 AM EST Spouse notified letter ready for pickup at [facility]02-24-2025 Miscellaneous Notes* Telephone Encounter - Qing Saab [...] to return. Blanca requests call back at [phone] when ready for pick up and delivery driver. Aware provider is not in until later today. Braeden Valdes RN documented in this encounterK[facility]02-24-2025 Telephone encounter Note * Telephone Encounter - Armani Leong APRN.MELIA - 01/01/2025 10:13 AM EST Letter created and signed. Armani Leong APRN.MELIA [facility]02-24-2025 Telephone encounter Note* Telephone Encounter - Braeden Valdes RN - 01/01/2025 9:33 AM EST Spouse calls back to report patient needs return to work letter to be for tomorrow 01/02/2025. Braeden Valdes RN [facility]02-24-2025 Telephone encounter Note* Telephone Encounter - Braeden Valdes RN - 01/01/2025 9:29 AM EST Spouse calls to report that patient needs a letter stating that he is able to return to work today 01/01/2025. Current letter only says he was treated for influenza and patients employer needs one stating he isable to return. Blanca requests call back at [phone] when ready for pick up and delivery driver. Aware provider is not in until later today. Braeden Valdes RN [facility]02-21-2025 History of Present illness Narrative* Pierce Wells [...] Low Pierce Wells MD documented in this encounterK[facility]02-21-2025 NoteHNO ID: [id number] Author: PIERCE WELLS MD Service: ? Author [...] Decision Making Level: 3 - Shan Wells [facility]02-07-2025 Telephone encounter Note* Telephone Encounter - Braeden Valdes RN - 12/15/2024 3:26 PM EST Spouse calls to report patient is out of ibuprofen and has no refills at pharmacy. Contacted [facility] and spoke to Izabel. Patient has refills and hasn't filled prescription since early November. Able to refill. Closing encounter. Nothing further needed. Braeden Valdes RN [facility]02-07-2025 Miscellaneous Notes* Telephone Encounter - Breaden Valdes RN - 12/15/2024 3:26 PM EST Spouse calls to report patient is out of ibuprofen and has no refills at pharmacy. Contacted [facility] and spoke to Izabel. Patient has refills and hasn't filled prescription since early November. Able to refill. Closing encounter. Nothing further needed. Braeden Valdes RN documented in this encounterK[facility]11-05-2024 Instructions* Patient Instructions* Armani Leong APRN.CNP - 09/12/2024 1:15 PM EST Get labs Medication refilled Flu vaccine given Cologuard will come to your house See us back in 12 months, sooner if needed. Armani Leong APRN.CNP documented in this encounterKettering Health [facility]11-05-2024 History of Present illness Narrative* Armani Leong APRN.CNP - 09/12/2024 1:00 PM EST Chief Complaint Patient presents with: Yearly Exam HPI José Miguel Camarenayulissatrista Orona. is a 59 year old male [...] needed. This note was partly generated using Gendelon voice recognition dictation and may contain some misspelled or inaccurate words missed on review. documented in this encounterK[facility]11-05-2024 NoteHNO ID: [id number] Author: ARMANI LEONG APRN.CNP Service: ? Author [...] normal, septum midline, mucosa (more content not included)...[facility]10-29-2024 Telephone encounter Note* Telephone Encounter - Armani Leong APRN.CNP - 09/05/2024 11:23 AM EDT Sent The following approved medication requests have been transmitted electronically. Requested Prescriptions Signed Prescriptions Disp Refills escitalopram oxalate (LEXAPRO) 10 mg tablet 30 tablet 5 Sig: Take 1 tablet by mouth once daily. Authorizing Provider: ARMANI LEONG APRN.CNP [facility]10-29-2024 Miscellaneous Notes* Telephone Encounter - Armani Leong [...] No PHARMACY: [facility] documented in this encounterKet[facility]10-29-2024 Telephone encounter Note * Telephone Encounter - [...] by mouth once daily. Armani Leong APRN.CNP [facility]10-29-2024 Miscellaneous Notes* Telephone Encounter - Armani Leong [...] 05, 2024 10:30 AM documented in this encounterKettering [facility]10-29-2024 Telephone encounter Note * Telephone Encounter - [...] Lee MA September 05, 2024 10:57 AM [facility]10-29-2024 Telephone encounter Note* Telephone Encounter - Suzi Wyman - 09/05/2024 10:32 AM EDT Patient's spouse calling to request medication that is : scitalopram oxalate (LEXAPRO) 10 mg tablet () Last office visit Future visit scheduled No PHARMACY: [facility] T [facility]10-29-2024 Telephone encounter Note* Telephone Encounter - Suzi [...] Suzi Wyman September 05, 2024 10:30 AM [facility]10-04-2024 Telephone encounter Note* Telephone Encounter - Pierce Wells MD - 08/11/2024 3:59 PM EDT OK to refill as ordered Pierce Wells MD [facility]10-04-2024 Miscellaneous Notes* Telephone Encounter - Pierce Wells [...] with spouse 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 Please advise spouse. Requested Prescriptions Pending Prescriptions Disp Refills finasteride (PROSCAR) 5 mg tablet 30 tablet 11 Sig: Take 1 tablet by mouth once daily. 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 Please advise spouse. Requested Prescriptions Pending Prescriptions Disp Refills finasteride (PROSCAR) 5 mg tablet 30 tablet 11 Sig: Take 1 tablet by mouth once daily. Pepper Schulz Pss August 11, 2024 3:40 PM [facility]07-23-2024 Telephone encounter Note* Telephone Encounter - Pierce Wells MD - 05/30/2024 4:39 PM EDT OK to refill as ordered Pierce Wells MD [facility]07-23-2024 Miscellaneous Notes* Telephone Encounter - Pierce Wells [...] 30, 2024 4:21 PM documented in this encounterKettering [facility]07-23-2024 Telephone encounter Note * Telephone Encounter - Svetlana Head LPN [...] Head LPN May 30, 2024 4:21 PM [facility]05-02-2024 Telephone encounter Note* Telephone Encounter - Angela Ojeda RN - 03/09/2024 8:09 AM EDT Pts called and is notified of providers message. Pt voices understanding. Angela Ojeda RN [facility]05-02-2024 Miscellaneous Notes* Telephone Encounter - Angela Ojeda [...] you. Angela Ojeda RN. documented in this encounterKettering Health [facility]05-01-2024 Telephone encounter Note * Telephone Encounter - Yaquelin Ceron APRN.CNP - 03/08/2024 7:52 PM EDT The following approved medication requests have been transmitted electronically. Requested Prescriptions Pending Prescriptions Disp Refills escitalopram oxalate (LEXAPRO) 10 mg tablet 30 tablet 5 Sig: Take 1 tablet by mouth once daily. Yaquelin Ceron APRN.CNP [facility]05-01-2024 Telephone encounter Note* Telephone Encounter - Angela [...] Please advise. Thank you. Angela Ojeda RN. [place] [address]-04-2024 Miscellaneous Notes* Telephone Encounter - Yaquelin Ceron APRN.CNP - 02/10/2024 7:00 AM EDT The following approved medication requests have been transmitted electronically. Requested Prescriptions Pending Prescriptions Disp Refills minoxidil (LONITEN) 10 mg tablet 60 tablet 5 Sig: Take 2 tablets by mouth once daily. Atenolol-Chlorthalidone 100-25 mg per tablet 30 tablet 5 Sig: Take 1 tablet by mouth once daily. Yaquelin Ceron APRN.KICKBOXING INSTRUCTOR * Telephone Encounter - Linda Wood LPN [...] you. Linda Wood LPN. documented in this encounterKettering Health [facility]09-15-2023 Instructions* Patient Instructions* Armani Leong APRN.MELIA - 07/23/2023 2:12 PM EDT Begin Lexapro 10 mg once daily. Begin Wellbutrin XL 150 mg daily. Start Proscar 5 mg daily. Continue with Tamusolin Trial starting Amlodipine 5 mg daily for blood pressure Get blood work Return stool kit documented in this encounterKettering Health [facility]09-15-2023 History of Present illness Narrative* Patricia Robbins MA - 07/23/2023 1:46 PM EDT BP Manual readin/98 Pulse: 72 LEFT arm LARGE cuff BP Nikolas Average: 168/78 Pulse: 69 RIGHT arm LARGE cuff 1. 178/80 Pulse: 72 2. 170/78 Pulse: 70 3. 169/77 Pulse: 71 4. 166/80 Pulse: 68 BP NIKOLAS AVERAGE: 168/78 Pulse: 69 * Armani Leong APRN.KICKBOXING INSTRUCTOR - 07/23/2023 1:40 PM EDT Chief Complaint [...] complaint of daytime somnolence. Sometimes has to kidney puller and take a nap. He was [...] which included preparing to see the patient, [id number] patient care, completing clinical documentation, obtaining and/or reviewing separately obtained history, performing a medically appropriate examination, counseling and educating the pat ient/family/caregiver, and ordering medications, tests, or procedures. This note was partly generated using Bensussen Deutsch voice recognition dictation and may contain some misspelled or inaccurate words missed on review. documented in this encounterKettering Health [facility]07-20-2023 Miscellaneous Notes* Telephone Encounter - Armani Leong [...] notify patient. Gabbie Chester documented in this encounterK[facility]tering Health [facility]02-04-2023 Miscellaneous Notes* Telephone Encounter - Pierce Wells [...] and advise. Gayathri Gray documented in this encounterKettering [facility]09-01-2022 Miscellaneous Notes* Telephone Encounter - Danita Marquez [...] has any questions. Thank you. Yaquelin Ceron APRN.MELIA documented in this encounterKettering Health [facility]08-27-2022 Miscellaneous Notes* Telephone Encounter - Renuka Carr [...] redness, pain or fever. Protocols used: Immunization [id number] documented in this encounterKettering Health [facility]08-05-2022 Miscellaneous Notes* Telephone Encounter - Danita Marquez [...] has any questions. Thank you. Yaquelin Ceron APRN.KICKBOXING INSTRUCTOR documented in this encounterKettering Health [facility]06-27-2022 Miscellaneous Notes* Telephone Encounter - Ruby Jesus [...] patient. Ariela Mott Pss documented in this encounterKettering Health [facility]03-28-2022 Miscellaneous Notes* Telephone Encounter - Pierce Wells [...] advise. Danita Marquez LPN documented in this encounterKettering Health [facility]06-10-2021 History of Present illness Narrative* Elena Meléndez [...] 17, 2021 10:28 AM documented in this encounterKettering Health [facility]02-24-2011 History of Past illness Narrative* Problem Noted Date Resolved Date Tobacco use disorder 01/01/2011 06/29/2017 documented as of this encounter (statuses as of 02/02/2022) [facility] History of Past illness Narrative* Problem Noted Date Resolved Date Tobacco use disorder 01/01/2011 06/29/2017 documented as of this encounter (statuses as of 05/04/2022) [address]24-2011 History of Past illness Narrative* Problem Noted Date Resolved Date Tobacco use disorder 01/01/2011 06/29/2017 documented as of this encounter (statuses as of 05/26/2022) [address]24-2011 History of Past illness Narrative* Problem Noted Date Resolved Date Tobacco use disorder 01/01/2011 06/29/2017 documented as of this encounter (statuses as of 06/15/2022) [address]24-2011 History of Past illness Narrative* Problem Noted Date Resolved Date Tobacco use disorder 01/01/2011 06/29/2017 documented as of this encounter (statuses as of 07/04/2022) [address]24-2011 History of Past illness Narrative* Problem Noted Date Resolved Date Tobacco use disorder 01/01/2011 06/29/2017 documented as of this encounter (statuses as of 07/09/2022) [address]24-2011 History of Past illness Narrative* Problem Noted Date Resolved Date Tobacco use disorder 01/01/2011 06/29/2017 documented as of this encounter (statuses as of 12/14/2022) [address]24-2011 History of Past illness Narrative* Problem Noted Date Diagnosed Date Resolved Date Tobacco use disorder 01/01/2011 017 documented as of this encounter (statuses as of 05/27/2023) [address]24-2011 History of Past illness Narrative* Problem Noted Date Diagnosed Date Resolved Date Tobacco use disorder 01/01/2011 017 documented as of this encounter (statuses as of 07/23/2023) [address]24-2011 History of Past illness Narrative* Problem Noted Date Diagnosed Date Resolved Date Tobacco use disorder 01/01/2011 017 documented as of this encounter (statuses as of 02/11/2024) [facility] Author Savanna Soriano [facility] Note Date/Time March 05, 2025 3:0 9pm [facility] Medical Records Department [address] [place] [address] Counseling Note - Pharmacy 03/05/25 1507 MR#: [id number] Acct: [id number] Name: JOSÉ MIGUEL YOUNG . Rep #: [id number] : 1965 59 From: Savanna Soriano PCP: Dr. Pierce Wells MD Status:AD M IN Y [facility] has performed discharge medication reconciliation [...] of their dischargemedications. Patient counseled by pharmacy scheduler, Omega. Medications at Discharge Home Medications guanfacine [...] Signature (if applicable): Date CC: ~ Signed [facility] Work Phone: Discharge summary Author Jostin Arriaza [facility] Note Date/Time March 05, 2025 2:4 8pm [facility] Medical Records Department [address] [place] [address] Instructions for Home/Discharge Instructions 03/05/25 1445 MR#: [id number] Acct: [id number] Name: JOSÉ MIGUEL YOUNG . Rep #: [id number] : 1965 59 From: Jostin castro DO [...] can be placed): Home, Self Care 03/05/25 3808<Electronically signed by Jostin Arriaza DO>Jostin Arriaza DO CC: Dr. Thierno Campos DO; Dr. Pierce Wells MD; Dr. Pierce Florian DO ~ Signed [facility] Work Phone: Evaluation note* Diagnosis Reactive depression Dysthymic disorder documented in this encounter [facility] note* Diagnosis Gastroesophageal reflux disease without esophagitis Esophageal reflux Benign prostatic hyperplasia with nocturia Essential hypertension Unspecified essential hypertension documented in this encounter [facility] note* Diagnosis Chronic bilateral low back pain without sciatica documented in this encounter [facility] note* Diagnosis Gastroesophageal reflux disease without esophagitis Esophageal reflux Essential hypertension Unspecified essential hypertension Reactive depression Dysthymic disorder documented in this encounter [facility] note* Diagnosis Essential hypertension- Primary Unspecified essential hypertension Reactive depression Dysthymic disorder Screening for colon cancer Special screening for malignant neoplasms, colon Elevated glucose Other abnormal glucose Benign prostatic hyperplasia with nocturia Strain of left shoulder, initial encounter Musculoskeletal disorder involving upper trapezius muscle Gastroesophageal reflux disease without esophagitis Esophageal reflux [facility] Diagnosis Essential hypertension Unspecified essential hypertension [facility]* Diagnosis Reactive depression Dysthymic disorder documented in this encounter [facility] note* Diagnosis Reactive depression Dysthymic disorder documented in this encounter [facility] note* Diagnosis Essential hypertension Unspecified essential hypertension documented in this encounter [facility] note* Diagnosis Gastroesophageal reflux disease without esophagitis Esophageal reflux documented in this encounter [facility] note* Diagnosis Chronic bilateral low back pain without sciatica Essential hypertension Unspecified essential hypertension documented in this encounter [facility] note* Diagnosis Conjunctivitis- Primary Conjunctivitis, unspecified HYPERTENSION NOS Unspecified essential hypertension Knee injury, left, initial encounter documented in this encounter [facility] note* Diagnosis Conjunctivitis- Primary Conjunctivitis, unspecified HYPERTENSION NOS Unspecified essential hypertension Benign prostatic hyperplasia with nocturia documented in this encounter [facility] note* Diagnosis Conjunctivitis- Primary Conjunctivitis, unspecified HYPERTENSION NOS Unspecified essential hypertension Reactive depression Dysthymic disorder Wellness examination- Primary Essential hypertension Unspecified essential hypertension Reactive depression Dysthymic disorder Benign prostatic hyperplasia with nocturia Gastroesophageal reflux disease without esophagitis Esophageal reflux documented in this encounter [facility] note* Diagnosis Conjunctivitis- Primary Conjunctivitis, unspecified HYPERTENSION NOS Unspecified essential hypertension Essential hypertension Unspecified essential hypertension Wellness examination- Primary Essential hypertension Unspecified essential hypertension Reactive depression Dysthymic disorder Benign prostatic hyperplasia with nocturia Gastroesophageal reflux disease without esophagitis Esophageal reflux documented in this encounter [facility] note* Diagnosis Conjunctivitis- Primary Conjunctivitis, unspecified HYPERTENSION NOS Unspecified essential hypertension Wellness examination- Primary Essential hypertension Unspecified essential hypertension Reactive depression Dysthymic disorder Benign prostatic hyperplasia with nocturia Gastroesophageal reflux disease without esophagitis Esophageal reflux Encounter for immunization Need for other specified prophylactic vaccination against single bacterial disease Screening for colon cancer Special screening for malignant neoplasms, colon documented in this encounter [facility] note* Diagnosis Conjunctivitis- Primary Conjunctivitis, unspecified HYPERTENSION NOS Unspecified essential hypertension Acute cough- Primary Influenza Influenza with other respiratory manifestations documented in this encounter [facility] note* Diagnosis Conjunctivitis- Primary Conjunctivitis, unspecified HYPERTENSION NOS Unspecified essential hypertension Atrial fibrillation, unspecified type (HCC)- Primary documented in this encounter [facility] note* Diagnosis Conjunctivitis- Primary Conjunctivitis, unspecified HYPERTENSION NOS Unspecified essential hypertension Heart failure, unspecified HF chronicity, unspecified heart failure type (HCC)- Primary Reactive depression Dysthymic disorder Essential hypertension Unspecified essential hypertension Atrial fibrillation, unspecified type (HCC) Chronic bilateral low back pain without sciatica documented in this encounter [facility] note* Diagnosis Conjunctivitis- Primary Conjunctivitis, unspecified HYPERTENSION NOS Unspecified essential hypertension Heart failure, unspecified HF chronicity, unspecified heart failure type (HCC)- Primary Atrial fibrillation, unspecified type (HCC) Essential hypertension Unspecified essential hypertension Benign prostatic hyperplasia with nocturia Chronic right-sided low back pain without sciatica Reactive depression Dysthymic disorder documented in this encounter [facility] note* Diagnosis Conjunctivitis- Primary Conjunctivitis, unspecified HYPERTENSION NOS Unspecified essential hypertension Chronic right-sided low back pain without sciatica documented in this encounter [facility] note* Diagnosis Conjunctivitis- Primary Conjunctivitis, unspecified HYPERTENSION NOS Unspecified essential hypertension Gastroesophageal reflux disease without esophagitis Esophageal reflux Essential hypertension Unspecified essential hypertension documented in this encounter [facility] note* Diagnosis Conjunctivitis- Primary Conjunctivitis, unspecified HYPERTENSION NOS Unspecified essential hypertension Heart failure, unspecified HF chronicity, unspecified heart failure type (HCC)- Primary Atrial fibrillation, unspecified type (HCC) Snoring Other dyspnea and respiratory abnormality Fatigue, unspecified type documented in this encounter [facility] note* Diagnosis Conjunctivitis- Primary Conjunctivitis, unspecified HYPERTENSION NOS Unspecified essential hypertension Chronic right-sided low back pain without sciatica- Primary Chronic bilateral low back pain without sciatica- Primary Reactive depression Dysthymic disorder documented in this encounter [facility] note* Diagnosis Conjunctivitis- Primary Conjunctivitis, unspecified HYPERTENSION NOS Unspecified essential hypertension Chronic bilateral low back pain without sciatica- Primary Reactive depression Dysthymic disorder Essential hypertension Unspecified essential hypertension Primary osteoarthritis of both knees Primary localized osteoarthrosis, lower leg Food insecurity documented in this encounter [facility] note* Diagnosis Conjunctivitis- Primary Conjunctivitis, unspecified HYPERTENSION NOS Unspecified essential hypertension Primary osteoarthritis of both knees Primary localized osteoarthrosis, lower leg documented in this encounter [facility] Discharge instructions Additional Instructions Follow-up with your PCP to have your potassium and magnesium levels rechecked, return for any worsening symptoms. Stay well-hydrated.[facility] Work Phone: Reason for referral (narrative)No reason for referral information availableWMiami Valley Hospital Work Phone: Reason for visit Narrative* Diagnostic Procedure Only (Routine) - Closed Specialty Diagnoses / Procedures Referred By Contac t Referred To Contact XR IMAGING Diagnoses Chronic right-sided low back pain without sciatica Procedures XR LUMBAR GENERAL 3V AP/LAT/L5-S1 RADEX SPINE LUMBOSACRAL 2/3 VIEWS Armani Leong APRN.KICKBOXING INSTRUCTOR [address] [place] [address] Phone: tel: fax: [place] [id number] Referral ID Status Reason Start Date Expiration Date V isits Requested Visits Authorized [id number] Closed Auto-Generate d Referral 06/04/2025 07/04/2026 1 1 [facility] for visit Narrative* Diagnostic Procedure Only (Routine) - Closed Specialty Diagnoses / Procedures Referred By Contac t Referred To Contact XR IMAGING Diagnoses Primary osteoarthritis of both knees Procedures XR KNEE GENERAL 4V AP BOTH/PA BOTH/LAT/MERC BILATERAL RADIOLOGIC EXAM KNEE COMPLETE 4/MORE VIEWS Armani Leong, JOELLE.KICKBOXING INSTRUCTOR [address] [place] [address] Phone: tel: fax: [place] [id number] Referral ID Status Reason Start Date Expiration Date V isits Requested Visits Authorized [id number] Closed Auto-Generate d Referral 07/23/2025 08/22/2026 1 1 [facility] Advance Directives No Advanced Directives Records FoundDocuments on File Type Date Recorded 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 No March 02, 2025 11:04pm Advance Directive Response Recorded Date/ Time Do you have a Healthcare Power of Xray Tech? No March 18, 2025 7:44pm Do you have a Healthcare Power of Xray Tech? No March 02, 2025 11:04pm Advance Directive Response Recorded Date/ Time Do you have a Healthcare Power of Xray Tech? No March 18, 2025 10:02pm Do you have a Healthcare Power of Xray Tech? No March 02, 2025 11:04pm Advance Directive Response Recorded Date/ Time Do you have a Healthcare Power of Xray Tech? No March 18, 2025 10:02pm Do you have a Healthcare Power of Xray Tech? No March 02, 2025 11:04pm Do you have a Healthcare Power of Xray Tech? No March 25, 2025 4:43pm Advance Directive Response Recorded Date/ Time Do you have a Healthcare Power of Xray Tech? No March 18, 2025 10:02pm Do you have a Healthcare Power of Xray Tech? No March 02, 2025 11:04pm Do you have a Healthcare Power of Xray Tech? No March 25, 2025 4:43pm Advance Directives on File No May 16, 2025 11:31am Living Will No May 16, 2025 1 1:31am Do you have a Healthcare Power of Xray Tech? No May 16, 2025 11:31am Advance Directives [...] March 25, 2025 4:12p m S/P HOSP ([facility] 03/22) May 09, 2025 3:40p m Reason [...] March 25, 2025 4:12p m S/P HOSP ([facility] 03/22) May 09, 2025 3:40p m afib [...] March 25, 2025 4:12p m S/P HOSP ([facility] 03/22) May 09, 2025 3:40p m afib [...] March 25, 2025 4:12p m S/P HOSP ([facility] 03/22) May 09, 2025 3:40p m afib [...] March 25, 2025 4:12p m S/P HOSP ([facility] 03/22) May 09, 2025 3:40p m afib [...] or prosecute any alcohol or drug abuse patient.[facility] the event this information is protected by the Federal Confidentiality of Alcohol and Drug Abuse Patient Records regulations: The Federal rules restrict any use of the information to criminally investigate or prosecute any alcohol or drug abuse patient.[facility] the event this information is protected by the Federal Confidentiality of Alcohol and Drug Abuse Patient Records regulations: The Federal rules restrict any use of the information to criminally investigate or prosecute any alcohol or drug abuse patient.[facility] Hamilton[facility] the event this information is protected by the Federal Confidentiality of Alcohol and Drug Abuse Patient Records regulations: The Federal rules restrict any use of the information to criminally investigate or prosecute any alcohol or drug abuse patient.[facility] HamiltonIn the event this information is protected by the Federal Confidentiality of Alcohol and Drug Abuse Patient Records regulations: The Federal rules restrict any use of the information to criminally investigate or prosecute any alcohol or drug abuse patient.[facility] HamiltonIn the event this information is protected by the Federal Confidentiality of Alcohol and Drug Abuse Patient Records regulations: The Federal rules restrict any use of the information to criminally investigate or prosecute any alcohol or drug abuse patient.[facility] HamiltonIn the event this information is protected by the Federal Confidentiality of Alcohol and Drug Abuse Patient Records regulations: The Federal rules restrict any use of the information to criminally investigate or prosecute any alcohol or drug abuse patient.[facility] HamiltonIn the event this information is protected by the Federal Confidentiality of Alcohol and Drug Abuse Patient Records regulations: The Federal rules restrict any use of the information to criminally investigate or prosecute any alcohol or drug abuse patient.[facility] HamiltonIn the event this information is protected by the Federal Confidentiality of Alcohol and Drug Abuse Patient Records regulations: The Federal rules restrict any use of the information to criminally investigate or prosecute any alcohol or drug abuse patient.[facility] HamiltonIn the event this information is protected by the Federal Confidentiality of Alcohol and Drug Abuse Patient Records regulations: The Federal rules restrict any use of the information to criminally investigate or prosecute any alcohol or drug abuse patient.[facility] HamiltonIn the event this information is protected by the Federal Confidentiality of Alcohol and Drug Abuse Patient Records regulations: The Federal rules restrict any use of the information to criminally investigate or prosecute any alcohol or drug abuse patient.[facility] HamiltonIn the event this information is protected by the Federal Confidentiality of Alcohol and Drug Abuse Patient Records regulations: The Federal rules restrict any use of the information to criminally investigate or prosecute any alcohol or drug abuse patient.[facility] HamiltonIn the event this information is protected by the Federal Confidentiality of Alcohol and Drug Abuse Patient Records regulations: The Federal rules restrict any use of the information to criminally investigate or prosecute any alcohol or drug abuse patient.[facility] HamiltonIn the event this information is protected by the Federal Confidentiality of Alcohol and Drug Abuse Patient Records regulations: The Federal rules restrict any use of the information to criminally investigate or prosecute any alcohol or drug abuse patient.[facility] HamiltonIn the event this information is protected by the Federal Confidentiality of Alcohol and Drug Abuse Patient Records regulations: The Federal rules restrict any use of the information to criminally investigate or prosecute any alcohol or drug abuse patient.[facility] HamiltonIn the event this information is protected by the Federal Confidentiality of Alcohol and Drug Abuse Patient Records regulations: The Federal rules restrict any use of the information to criminally investigate or prosecute any alcohol or drug abuse patient.[facility] HamiltonIn the event this information is protected by the Federal Confidentiality of Alcohol and Drug Abuse Patient Records regulations: The Federal rules restrict any use of the information to criminally investigate or prosecute any alcohol or drug abuse patient.[facility] HamiltonIn the event this information is protected by the Federal Confidentiality of Alcohol and Drug Abuse Patient Records regulations: The Federal rules restrict any use of the information to criminally investigate or prosecute any alcohol or drug abuse patient.[facility] HamiltonIn the event this information is protected by the Federal Confidentiality of Alcohol and Drug Abuse Patient Records regulations: The Federal rules restrict any use of the information to criminally investigate or prosecute any alcohol or drug abuse patient.[facility] HamiltonIn the event this information is protected by the Federal Confidentiality of Alcohol and Drug Abuse Patient Records regulations: The Federal rules restrict any use of the information to criminally investigate or prosecute any alcohol or drug abuse patient.[facility] HamiltonIn the event this information is protected by the Federal Confidentiality of Alcohol and Drug Abuse Patient Records regulations: The Federal rules restrict any use of the information to criminally investigate or prosecute any alcohol or drug abuse patient.[facility] HamiltonIn the event this information is protected by the Federal Confidentiality of Alcohol and Drug Abuse Patient Records regulations: The Federal rules restrict any use of the information to criminally investigate or prosecute any alcohol or drug abuse patient.[facility] HamiltonIn the event this information is protected by the Federal Confidentiality of Alcohol and Drug Abuse Patient Records regulations: The Federal rules restrict any use of the information to criminally investigate or prosecute any alcohol or drug abuse patient.[facility] HamiltonIn the event this information is protected by the Federal Confidentiality of Alcohol and Drug Abuse Patient Records regulations: The Federal rules restrict any use of the information to criminally investigate or prosecute any alcohol or drug abuse patient.[facility] HamiltonIn the event this information is protected by the Federal Confidentiality of Alcohol and Drug Abuse Patient Records regulations: The Federal rules restrict any use of the information to criminally investigate or prosecute any alcohol or drug abuse patient.[facility] HamiltonIn the event this information is protected by the Federal Confidentiality of Alcohol and Drug Abuse Patient Records regulations: The Federal rules restrict any use of the information to criminally investigate or prosecute any alcohol or drug abuse patient.[facility] HamiltonIn the event this information is protected by the Federal Confidentiality of Alcohol and Drug Abuse Patient Records regulations: The Federal rules restrict any use of the information to criminally investigate or prosecute any alcohol or drug abuse patient.[facility] HamiltonIn the event this information is protected by the Federal Confidentiality of Alcohol and Drug Abuse Patient Records regulations: The Federal rules restrict any use of the information to criminally investigate or prosecute any alcohol or drug abuse patient.[facility] HamiltonIn the event this information is protected by the Federal Confidentiality of Alcohol and Drug Abuse Patient Records regulations: The Federal rules restrict any use of the information to criminally investigate or prosecute any alcohol or drug abuse patient.[facility] HamiltonIn the event this information is protected by the Federal Confidentiality of Alcohol and Drug Abuse Patient Records regulations: The Federal rules restrict any use of the information to criminally investigate or prosecute any alcohol or drug abuse patient.[facility] HamiltonIn the event this information is protected by the Federal Confidentiality of Alcohol and Drug Abuse Patient Records regulations: The Federal rules restrict any use of the information to criminally investigate or prosecute any alcohol or drug abuse patient.[facility] HamiltonIn the event this information is protected by the Federal Confidentiality of Alcohol and Drug Abuse Patient Records regulations: The Federal rules restrict any use of the information to criminally investigate or prosecute any alcohol or drug abuse patient.[facility] HamiltonIn the event this information is protected by the Federal Confidentiality of Alcohol and Drug Abuse Patient Records regulations: The Federal rules restrict any use of the information to criminally investigate or prosecute any alcohol or drug abuse patient.[facility] HamiltonIn the event this information is protected by the Federal Confidentiality of Alcohol and Drug Abuse Patient Records regulations: The Federal rules restrict any use of the information to criminally investigate or prosecute any alcohol or drug abuse patient.[facility] HamiltonIn the event this information is protected by the Federal Confidentiality of Alcohol and Drug Abuse Patient Records regulations: The Federal rules restrict any use of the information to criminally investigate or prosecute any alcohol or drug abuse patient.[facility] HamiltonIn the event this information is protected by the Federal Confidentiality of Alcohol and Drug Abuse Patient Records regulations: The Federal rules restrict any use of the information to criminally investigate or prosecute any alcohol or drug abuse patient.[facility] HamiltonIn the event this information is protected by the Federal Confidentiality of Alcohol and Drug Abuse Patient Records regulations: The Federal rules restrict any use of the information to criminally investigate or prosecute any alcohol or drug abuse patient.[facility] HamiltonIn the event this information is protected by the Federal Confidentiality of Alcohol and Drug Abuse Patient Records regulations: The Federal rules restrict any use of the information to criminally investigate or prosecute any alcohol or drug abuse patient.[facility] HamiltonIn the event this information is protected by the Federal Confidentiality of Alcohol and Drug Abuse Patient Records regulations: The Federal rules restrict any use of the information to criminally investigate or prosecute any alcohol or drug abuse patient.[facility] HamiltonIn the event this information is protected by the Federal Confidentiality of Alcohol and Drug Abuse Patient Records regulations: The Federal rules restrict any use of the information to criminally investigate or prosecute any alcohol or drug abuse patient.[facility] HamiltonIn the event this information is protected by the Federal Confidentiality of Alcohol and Drug Abuse Patient Records regulations: The Federal rules restrict any use of the information to criminally investigate or prosecute any alcohol or drug abuse patient.[facility] HamiltonIn the event this information is protected by the Federal Confidentiality of Alcohol and Drug Abuse Patient Records regulations: The Federal rules restrict any use of the information to criminally investigate or prosecute any alcohol or drug abuse patient.[facility] HamiltonIn the event this information is protected by the Federal Confidentiality of Alcohol and Drug Abuse Patient Records regulations: The Federal rules restrict any use of the information to criminally investigate or prosecute any alcohol or drug abuse patient.[facility] HamiltonIn the event this information is protected by the Federal Confidentiality of Alcohol and Drug Abuse Patient Records regulations: The Federal rules restrict any use of the information to criminally investigate or prosecute any alcohol or drug abuse patient.[facility] Reason for Visit (unrecogniz ed section and [...] INTERNAL MEDICINE Diagnoses cough, Procedures OV Self [address] [place] [address] [address] [place] [address] Referral ID Status Reason Start Date Expiration Date V isits Requested Visits Authorized [id number] Closed OON/Self Pay Override 12/29/2024 11/07/2025 1 1 Reason Comments Letter Reason Comments Patient Update Reason Comments Diarrhea Reason Onset Date Comments Transition Of Care 03/23/2025 Reason Comments Forms FMLA Reason Comments Patient Update Reason Comments F/U 1 month Specialty Diagnoses / Procedures Referred By Contac t Referred To Contact FAMILY MEDICINE Diagnoses Follow-up exam follow up Procedures OFFICE/OUTPATIENT ESTABLISHED [facility] 30 MIN follow up Pierce Wells MD [address] [place] [address] Phone: tel: fax: [facility] [place] [address] [place] [id number] Phone: tel: Referral ID Status Reason Start Date Expiration Date V isits Requested Visits Authorized [id number] Closed OON/Self Pay Override 05/05/2025 11/07/2025 1 [...] EVALUATION HIGH COMPLEX 45 MINS Cherri Cerda APRN.KICKBOXING INSTRUCTOR [address] [place] [address] Phone: tel: fax: [facility] [address] [place] [address] Referral ID Status Reason Start Date Expiration Date Visits Requested Visits Authorized [id number] Authorized Auto-Generat ed Referral 05/08/2025 11/07/2025 30 30 Reason Comments Follow Up 6 week follow up Care Teams (unrecognized sec tion and content) Inspector Electromechanical Relationship Specialty Start Date End Date Pierce Wells MD [address], [place] [id number] PCP - General Family Practice 11/13/17 Inspector Electromechanical Relationship Specialty Start Date End Date Pierce Wells MD [address] [place], [place] [id number] PCP - General Family Practice 11/13/17 Inspector Electromechanical Relationship Specialty Start Date End Date Pierce Wells MD [address], [place] [id number] PCP - General Family Practice 11/13/17 Inspector Electromechanical Relationship Specialty Start Date End Date Pierce Wells MD [address] [place] [address] PCP - General Family Practice 11/13/17 Inspector Electromechanical Relationship Specialty Start Date End Date Pierce Wells MD [address] [place] [address] PCP - General Family Practice 11/13/17 Inspector Electromechanical Relationship Specialty Start Date End Date Pierce Wells MD [address] [place] [address] PCP - General Family Medicine 11/13/17 Inspector Electromechanical Relationship Specialty Start Date End Date Pierce Wells MD [address] [place] [address] PCP - General Family Medicine 11/13/17 Inspector Electromechanical Relationship Specialty Start Date End Date Pierce Wells MD [address] [place] [address] PCP - General Family Medicine 11/13/17 Inspector Electromechanical Relationship Specialty Start Date End Date Pierce Wells MD [address] [place] [address] PCP - General Family Medicine 11/13/17 Inspector Electromechanical Relationship Specialty Start Date End Date Pierce Wells MD [address] [place] [address] PCP - General Family Medicine 11/13/17 Inspector Electromechanical Relationship Specialty Start Date End Date Pierce Wells MD [address] [place] [address] PCP - General Family Medicine 11/13/17 Inspector Electromechanical Relationship Specialty Start Date End Date Pierce Wells MD [address] [place] [address] PCP - General Family Medicine 11/13/17 Inspector Electromechanical Relationship Specialty Start Date End Date Pierce Wells MD [address] [place] [address] PCP - General Family Medicine 11/13/17 Inspector Electromechanical Relationship Specialty Start Date End Date Pierce Wells MD [address] [place] [address] PCP - General Family Medicine 11/13/17 Inspector Electromechanical Relationship Specialty Start Date End Date Pierce Wells MD [address] [place] [address] PCP - General Family Medicine 11/13/17 Inspector Electromechanical Relationship Specialty Start Date End Date Pierce Wells MD [address] [place] [address] PCP - General Family Medicine 11/13/17 Inspector Electromechanical Relationship Specialty Start Date End Date Pierce Wells MD [address] [place] [address] PCP - General Family Medicine 11/13/17 Yaquelin Ceron APRN.KICKBOXING INSTRUCTOR [address] [place] [address] Manager Of Procurement Family Medicine 10/15/24 Armani Leong APRN.KICKBOXING INSTRUCTOR [address] [facility], [place] [address] [phone] Manager Of Procurement Family [facility] 10/24/24 Inspector Electromechanical Relationship Specialty Start Date End Date Pierce Wells MD [address] [place] [address] PCP - General Family Medicine 11/13/17 Yaquelin Ceron MARRIAGE AND FAMILY TEACHER.KICKBOXING INSTRUCTOR [address] [place] [address] Manager Of Procurement Family Medicine 10/15/24 Armani Leong APRN.KICKBOXING INSTRUCTOR [address] [place] [address] [facility] Inspector Electromechanical Relationship Specialty Start Date End Date Pierce Wells MD [address] [place] [address] PCP - General Family Medicine 11/13/17 Yaquelin Ceron, MARRIAGE AND FAMILY TEACHER.KICKBOXING INSTRUCTOR [address] [place] [address] [facility] 10/15/24 Armani Leong MARRIAGE AND FAMILY TEACHER.KICKBOXING INSTRUCTOR [address] [place] [address] [facility] 10/24/24 Team Status: Active Member Role Status [...] Provider Active St art: March 22, 2025 Inspector Electromechanical Relationship Specialty Start Date End Date Pierce Wells MD [address] [place] [address] PCP - General Family Medicine 11/13/17 Armani Leong APRN.KICKBOXING INSTRUCTOR [address] [place] [address] Manager Of Procurement Family Medicine 10/24/24 Inspector Electromechanical Relationship Specialty Start Date End Date Pierce Wells MD [address] [place] [address] PCP - General Family Medicine 11/13/17 Armani Leong APRN.KICKBOXING INSTRUCTOR [address] [place] [address] Manager Of Procurement [facility] Medicine 10/24/24 Team Status: Inactive Member Role Status Dates Dr. Pierce Wells MD Primary Care Provider Active Start: March 25, 2025 End: March 25, 2025 Dr. Jhonny Evans DO Emergency Provider Activ e Start: March 25, 2025 End: March 25, 2025 Inspector Electromechanical Relationship Specialty Start Date End Date Pierce Wells MD [address] [place] [address] PCP - General Family Medicine 11/13/17 Armani Leong, JOELLE.KICKBOXING INSTRUCTOR [address] [place] [address] Manager Of Procurement Family Medicine 10/24/24 Inspector Electromechanical Relationship Specialty Start Date End Date Pierce Wells MD [address] [place] [address] PCP - General Family Medicine 11/13/17 Armani Leong APRN.KICKBOXING INSTRUCTOR [address] [place] [address] Manager Of [facility] 10/24/24 Inspector Electromechanical Relationship Specialty Start Date End Date Pierce Wells MD [address] [place] [address] PCP - General Family Medicine 11/13/17 Armani Leong APRN.CNP [address] [place] [address] Manager Of [facility] Family Medicine 10/24/24 Team Status: Active Member [...] May 09, 2025 End: May 09, 2025 Inspector Electromechanical Relationship Specialty Start Date End Date Pierce Wells MD [address] [place], [place] [id number] PCP - General Family Medicine 11/13/17 Armani Leong, MARRIAGE AND FAMILY TEACHER.KICKBOXING INSTRUCTOR [address] [place], [place] [id number] Manager Of [facility] 10/24/24 Team Status: Inactive Member [...] June 04, 2025 End: June 04, 2025 Inspector Electromechanical Relationship Specialty Start Date End Date Pierce Wells MD [address] [place] [id number] PCP - General Family Medicine 11/13/17 Armani Leong APRN.KICKBOXING INSTRUCTOR [address] [place] [address] Manager Of [facility] Family [facility] 10/24/24 Inspector Electromechanical Relationship Specialty Start Date End Date Pierce Wells MD [address] [place] [address] PCP - General Family Medicine 11/13/17 Armani Leong APRN.KICKBOXING INSTRUCTOR [address] [place] [address] Manager Of [facility] Family [facility] 10/24/24 Inspector Electromechanical Relationship Specialty Start Date End Date Pierce Wells MD [address] [place] [address] PCP - General Family Medicine 11/13/17 Armani Leong APRN.KICKBOXING INSTRUCTOR [address] [place] [address] Manager Of [facility] Family [facility] 10/24/24 Inspector Electromechanical Relationship Specialty Start Date End Date Pierce Wells MD [address] [place] [address] PCP - General Family Medicine 11/13/17 Armani Leong APRN.KICKBOXING INSTRUCTOR [address] [place] [address] Manager Of [facility] Family Medicine 10/24/24 Team Status: Inactive Member Role/Relationship Status Dates Dr. Pierce Wells MD Primary Care Provider Active Start: June 25, 2025 End: June 25, 2025 Dr. Pierce Wells MD Referring Provider Active Start: June 25, 2025 End: June 25, 2025 José Miguel Miranda ROOM SERVICE FOOD SERVICE ATTENDANT, ROOM SERVICE FOOD SERVICE ATTENDANT-C Attending Provider Active S tart: June 25, 2025 End: June 25, 2025 Inspector Electromechanical Relationship Specialty Start Date End Date Pierce Wells MD [address] [place] [address] PCP - General Family Medicine 11/13/17 Armani Leong APRN.KICKBOXING INSTRUCTOR [address] [place] [address] Manager Of [facility] Family [facility] 10/24/24 Inspector Electromechanical Relationship Specialty Start Date End Date Pierce Wells MD [address] [place] [address] PCP - General Family Medicine 11/13/17 Armani Leong APRN.KICKBOXING INSTRUCTOR [address] [place] [address] Manager Of Proc[facility]ment Family Medicine 10/24/24 Inspector Electromechanical Relationship Specialty Start Date End Date Pierce Wells MD [address] [place] [address] PCP - General Family Medicine 11/13/17 Armani Leong APRN.KICKBOXING INSTRUCTOR [address] [place] [address] Manager Of [facility] Family [facility] 10/24/24 Inspector Electromechanical Relationship Specialty Start Date End Date Pierce Wells MD [address] [place] [address] PCP - General Family Medicine 11/13/17 Armani Leong MARRIAGE AND FAMILY TEACHER.KICKBOXING INSTRUCTOR [address] [place] [address] Manager Of Proc[facility]ment Family Medicine 10/24/24 Inspector Electromechanical Relationship Specialty Start Date End Date Pierce Wells MD [address] [place], [place] [id number] PCP - General Family Medicine 11/13/17 Armani Leong APRN.KICKBOXING INSTRUCTOR [address] [place], [place] [address] Manager Of Procurement [facility] 10/24/24 Inspector Electromechanical Relationship Specialty Start Date End Date Pierce Wells MD [address] [place], [place] [address] PCP - General Family Medicine 11/13/17 Armani Leong, JOELLE.KICKBOXING INSTRUCTOR [address] [place], [place] [id number] Manager Of Procurement [facility] 10/24/24 (unrecognized sect ion and content) No Status Records FoundNo Status Records FoundNo Status Records Found INFORMATION SOURCE (unrecogn ized section and content) DATE CREATED AUTHOR 06/16/2025 [facility] DATE CREATED AUTHOR AUTHOR'S ORGANIZ ATION 07/26/2025 [facility] [place] DATE CREATED AUTHOR AUTHOR'S ORGANIZ ATION 08/01/2025 [facility] FOR RECORDS PERTAINING TO PATIENTS WHO [...] BE BASED ON THE PRIMARY CLINICAL RECORDS. [employer] provides no warranty or guarantee of the accuracy or completeness of information in this document.
--- NOTE | 2025-08-13 11:27 | STRESSREP ---
Stress Test Report Pharmacologic myocardial perfusion stress test. 60-year-old man with a history of chest pain and dyspnea. Resting EKG demonstrates normal sinus rhythm with a rate of 65 bpm. Resting blood pressure is 136/100 mmHg. 0.4 mg of regadenoson was infused per usual protocol followed by rapid intravenous saline flush injection. Continuous EKG monitoring was performed. The maximum heart rate was 81 bpm which was 50% of max impacted heart rate the maximum workload was 1 metabolic equivalent. At rest there were no ST or T wave changes noted to suggest ischemia and at peak infusion nonspecific ST changes were noted which did not meet the criteria for ischemia. No clinical angina is noted. The final blood pressure was 130/80 mmHg. Myocardial perfusion protocol. 15 mCi of technetium 99m sestamibi was injected at rest. 0.4 mg of regadenoson was infused per usual protocol. At peak infusion 45 mCi of technetium 99m sestamibi was injected stress images were obtained stress and rest images were reconstructed and compared in the short axis vertical long and horizontal long axis. Gated images were also obtained. Perfusion SPECT analysis: Review of the stress images demonstrate normal uptake of tracer noted in all areas of the myocardium. There is a small portion of the apex which has reduced perfusion. The resting images similar demonstrated normal uptake of tracer noted in all areas of the myocardium a small portion of the apex also appears to have reduced perfusion and a small apical infarct and/or emily-infarct ischemia cannot be completely excluded. Gated SPECT analysis: The gated ejection fraction is 52 %. Conclusion: Normal pharmacologic myocardial perfusion stress test. A small emily-infarct zone cannot be completely excluded. Normal ejection fraction.
== END | disposition home or self-care (01) ==
PROVIDERS: PCP Family Medicine; Referring Provider Nurse Practitioner Family; Visit Provider Nurse Practitioner Family
DX: I48.0 Paroxysmal atrial fibrillation (principal); I11.0 Hypertensive heart disease with heart failure; I50.31 Acute diastolic (congestive) heart failure; E66.01 Morbid (severe) obesity due to excess calories; Z68.43 Body mass index [BMI] 50.0-59.9, adult; R06.02 Shortness of breath
CPT/HCPCS: 78452; 93017; A9500; A4216; J2785